=== PATIENT | male | born 1955 | race African-American/Black ===

== ENCOUNTER 2016-10-09 21:27 | Inpatient (IN) | payer OTHER ==
[~2016-10-09] VITALS: Ht 188 cm; Wt 64.0 kg
[~2016-10-09 21:27] MED LIST: ASPI-664 PO; ATOR20TA38 PO; FER325 PO; GABA100C PO; LANT3I SC; LISI-524 PO; MTF1000T PO; NOVO3I SC
[2016-10-09 21:45] VITALS: Ht 188 cm; Wt 64.0 kg
[2016-10-09] MEDS ORDERED: SOD CHLORIDE 0.9% 1,000 ML IV STA (22:08)
--- NOTE | 2016-10-09 22:53 | RADRPT ---
PROCEDURE: CHEST CLINICAL INDICATION: 61-year-old male with cough and hyperglycemia. TECHNIQUE: AP semi-erect view of the chest was performed on two radiographs. The images were revi ewed on a PACS workstation. COMPARISON: Chest x-ray January 23, 2015. FINDINGS: The cardiomediastinal silhouette has a normal appearance. There is no evidence for an infiltrate. There is no evidence for congestive heart failure. There is no evidence for pneumothorax. The osseou s structures are intact. IMPRESSION: No evidence for active cardiopulmonary disease. .Aroldo Treviño MD, Date Time Electronically viewed and signed by .Aroldo Treviño MD, on 10/09/2016 22:52 .Cuco/
[2016-10-09 23:02] LABS: ADD SCAN DIFF NO
[2016-10-09 23:04] LABS: BASOPHILS % 0.8 % (0.0-2.0); HEMATOCRIT 45.8 % (42.0-52.0); HEMOGLOBIN 14.1 g/dl (14.0-18.0); LYMPHOCYTES # 1.3 10^3/ul (0.8-2.9); LYMPHOCYTES % 26.3 % (15.0-51.0); MEAN CORPUSCULAR HGB CONC 30.8 g/dl (32.0-37.0); MEAN CORPUSCULAR VOLUME 77.9 fl (82.0-101.0); MEAN PLATELET VOLUME 10.4 fl (7.4-10.4); MONOCYTE # 0.2 10^3/ul (0.3-0.9); MONOCYTES % 3.6 % (0.0-11.0); NEUTROPHIL # 3.4 10^3/ul (1.6-7.5); NEUTROPHILS % 68.3 % (39.0-77.0); PLATELET COUNT 376 10^3/UL (140-415); RED BLOOD COUNT 5.88 10^6/ul (4.70-6.10); RED CELL DISTRIBUTION WIDTH 14.5 % (11.5-14.5)
[2016-10-09 23:14] LABS: ALBUMIN 5.1 g/dl (3.3-4.9); CHLORIDE 89 mmol/L (97-110)
[2016-10-09 23:15] LABS: POTASSIUM 5.1 mmol/L (3.5-5.1); SODIUM 132 mmol/L (135-144)
[2016-10-09 23:17] LABS: ALBUMIN/GLOBULIN RATIO 1.15; ANION GAP 36 (8-16); BILIRUBIN,INDIRECT 0.2 mg/dl (0-1.1); BILIRUBIN,TOTAL 0.2 mg/dl (0.2-1.3); CARBON DIOXIDE 12 mmol/L (21-31); CREATININE 1.15 mg/dl (0.61-1.24); TOTAL PROTEIN 9.5 g/dl (6.1-8.1)
[2016-10-09 23:18] LABS: ALANINE AMINOTRANSFERASE 27 IU/L (13-69); ALKALINE PHOSPHATASE 125 IU/L (42-121); ASPARTATE AMINO TRANSFERASE 21 IU/L (15-46); BLOOD UREA NITROGEN 29 mg/dl (7-20); CALCIUM 10.5 mg/dl (8.4-10.2)
[2016-10-09 23:25] LABS: GLUCOSE 413 mg/dl (70-220)
[2016-10-09 23:39] LABS: TROPONIN-I < 0.012 ng/ml (0.00-0.12)
[2016-10-09] MEDS ORDERED: INSULIN REGULAR, HUMAN 100 UNIT in SOD CHLORIDE 0.9% 99 ML IV STA ×2 (23:40)
[2016-10-10] VITALS (14 sets, daily range): BP systolic 105–135; BP diastolic 66–88; PULSE 75–111; RESP 15–25
[2016-10-10] MEDS ORDERED: SOD CHLORIDE 0.9% 1,000 ML IV SCH (00:02)
[2016-10-10] MEDS ORDERED: morphine 2 MG INJ IV PRN (00:30)
[2016-10-10] MEDS ORDERED: LORAZEPAM 2 MG INJ IV PRN (00:30)
[2016-10-10] MEDS ORDERED: DOCUSATE SODIUM 100 MG CAP PO PRN (00:30)
[2016-10-10] MEDS ORDERED: INSULIN REGULAR, HUMAN 100 UNIT in SOD CHLORIDE 0.9% 99 ML IV SCH ×2 (00:30)
[2016-10-10] MEDS ORDERED: POTASSIUM CHLORIDE 50 ML IVPB PRN (00:30)
[2016-10-10] MEDS ORDERED: ACETAMINOPHEN 650MG/20.3ML CUP PO PRN (00:30)
[2016-10-10] MEDS ORDERED: DEXTROSE 50% 50 ML SYRINGE IV PRN ×4 (00:30→12:00)
[2016-10-10] MEDS ORDERED: LACTATED RINGER'S 1,000 ML IV SCH (01:02)
--- NOTE | 2016-10-10 01:11 | HP ---
Date/Time of Note Date/Time of Note DATE: 10/10/16 TIME: 01:01 Assessment/Plan VTE Prophylaxis VTE Prophylaxis Intervention: heparin Assessment/Plan Assessment/Plan 61 yo male with a past medical history of type II DM, essential hypertension, diabetic neuropathy, bipolar disorder, iron deficiency anemia, hyperlipidemia, who presents with elevated blood sugars and shortness of breath. 1. DKA - will admit the patient to ICU - continue with Insulin GTT, diabetic education, IVF, transition to sub q once gap closes, serial bmp's 2. Pseudohyponatremia - 2/2 to hyperglycemia 3. Atypical Pneumonia - levaquin 4. Acute renal failure - 2/2 to dehydration - IVF, renally adjust medications, avoid nephrotoxins 5. Essential hypertension - continue with lisinopril 6. Diabetic neuropathy - continue with neurontin 7. Bipolar Disorder - on depakote, check level 8. Iron deficiency anemia - continue with ferrous sulfate 9. Dyslipidemia - c/w statin 10. GI ppx - pepcid IV 11. DVt ppx - heparin 12. Homeless - social worker clinical consult answered all of his questions. as per clinical course. this critical care note took greater than 1 hour to complete HPI/ROS Admit Date/Time Admit Date/Time 10/10/2016, 1:01 am Hx of Present Illness 61 yo male with a past medical history of type II DM, essential hypertension, diabetic neuropathy, bipolar disorder, iron deficiency anemia, hyperlipidemia, who presents with elevated blood sugars and shortness of breath. He states that over the last several days, he has had worsening shortness of breath, with cough , non-productive, vomiting multiple episodes, fevers/chills, and generalized malaise. Denies any diarrhea, does have a lot of sick contacts on the streets. Complains of dizziness and blurriness in vision 2/2 uncontrolled diabetes. 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 Otherwise denies any chest pain, loss of consciousness, urinary/bowel irregularities, or other constitutional symptoms. ED course: insulin gtt, IVF ROS 14 point review of systems completed, please refer to HPI for any positive findings PMH/Family/Social Past Medical History bipolar d/o, iron deficiency anemia, diabetic neuropathy Medical History: diabetes, high cholesterol, hypertension Past Surgical History Past Surgical Hx: no surgical history Family History Significant Family History: diabetes Social History Alcohol Use: none Smoking Status: Current some day smoker Drug Use: other (previous cocaine abuse) Exam/Review of Systems Vital Signs Vitals Vital Signs Date Time Temp Pulse Resp B/P Pulse Ox O2 Delivery O2 Flow Rate FiO2 10/10/16 00:35 86 16 126/86 100 Room Air 10/09/16 21:45 94.0 Exam Exam Gen Jorge: mild to moderate distress 2/2 shortness of breath, AAOx4, dishevel HEENT: NC/AT, PERRLA, EOMI, no pharyngeal erythema, no tonsillar exudates, no lymphadenopathy, no JVD, no carotid bruits, MM dry NECK: supple, no thyromegaly THORAX: symmetrical, no obvious deformities CV: S1S2, RRR, no M/G/R Lungs: CTAB no W/C/R/R - diminished breath sounds bilaterally to bases Abd: soft, NT/ND, +BS, no rebound, no guarding, neg HSM EXT: no edema, no ecchymosis, no clubbing, FROM Neuro: CN II-XII grossly intact, no focal deficits Psych: good mentation, alert and oriented, good mood and affect Skin: dry Labs Result Diagram: 10/09/16222910/09/162229 Medications Medications Current Medications Dextrose (D50w Syringe) 50 ml Q15M PRN IV For BS 50 or less; Start 10/10/16 at 00:30 Dextrose 25 ml 25 ml Q15M PRN IV BS between 50-70; Start 10/10/16 at 00:30 Sodium Chloride 1,000 ml @ 1,000 mls/hr Q1H IV ; Start 10/10/16 at 00:02; Stop 10/10/16 at 01:01 Lactated Ringer's 1,000 ml @ 1,000 mls/hr Q1H IV ; Start 10/10/16 at 01:02; Stop 10/10/16 at 02:01 Potassium Chloride/Sodium Chloride (KCl/NS) 1,010 ml @ 500 mls/hr Q2H2M IV ; Start 10/10/16 at 02:02; Stop 10/10/16 at 04:01 Diagnostic Test (Pha) (Accucheck) 1 ea Q1H XX ; Start 10/10/16 at 00:30 Acetaminophen (Tylenol Liquid) 650 mg Q6H PRN PO PAIN LEVEL 1-3 OR FEVER; Start 10/10/16 at 00:30 Morphine Sulfate (morphine) 2 mg Q4H PRN IV PAIN LEVEL 7-10; Start 10/10/16 at 00:30 Lorazepam (Ativan) 1 mg Q2H PRN IV ANXIETY; Start 10/10/16 at 00:30 Docusate Sodium (Colace) 100 mg Q12H PRN PO CONSTIPATION; Start 10/10/16 at 00: 30 Famotidine (Pepcid Iv) 20 mg Q12 IV ; Start 10/10/16 at 09:00 Heparin Sodium (Porcine) (Heparin (5000 Units/0.5 ml)) 5,000 unit Q12 SC ; Start 10/10/16 at 09:00 Aspirin (Halfprin) 81 mg DAILY PO ; Start 10/10/16 at 09:00 Atorvastatin Calcium (Lipitor) 20 mg HS PO ; Start 10/10/16 at 21:00 Ferrous Sulfate (Ferrous Sulfate (Ec)) 325 mg BID PO ; Start 10/10/16 at 09:00 Gabapentin (Neurontin) 300 mg BID PO ; Start 10/10/16 at 09:00 Lisinopril (Zestril) 10 mg DAILY PO ; Start 10/10/16 at 09:00 Procedures Procedures CXR IMPRESSION: No evidence for active cardiopulmonary disease. MEL PAEZ MD Oct 10, 2016 01:11
--- NOTE | 2016-10-10 01:17 | ERA ---
ER Documentation Chief Complaint Date/Time DATE: 10/10/16 TIME: 01:15 Chief Complaint states blood sugar high, feeling weak HPI This is a 61-year-old male states he has high blood sugars has been feeling weak. Denies any fevers or chills. He does have polydipsia polyuria polyphagia. No other current complaints. ROS All systems reviewed and are negative except as per history of present illness. Medications Home Meds Active Scripts Atorvastatin Calcium* (Atorvastatin Calcium*) 20 Mg Tab, 20 MG PO HS for 30 Days , 1 Refill Prov:NIKO JOAQUIN . 02/27/15 Aspirin* (Aspirin* EC) 81 Mg Tabec, 81 MG PO DAILY for 30 Days, 1 Refill Prov:[facility]INFORM[facility]LY [facility] 02/27/15 Insulin Glargine* (Lantus*) 100 Unit/Ml Soln, 20 UNIT SC QHS for 30 Days, 1 [facility] Insulin Aspart* (Novolog Insulin Pen*) 100 Unit/Ml Soln, 5 UNIT SC WITH MEALS for 30 Days, 1 [facility] 02/27/15 Ferrous Sulfate* (Ferrous Sulfate*) 325 Mg Tabec, 325 MG PO BID, #30 TAB 1 [facility] 02/27/15 Lisinopril* (Zestril*) 10 Mg Tab, 10 MG PO DAILY, #30 TAB 1 [facility] 02/27/15 Gabapentin* (Neurontin*) 100 Mg Cap, 300 MG PO BID, #60 TAB 1 [facility] 02/27/15 Metformin* (Glucophage*) 1,000 Mg Tablet, 1000 MG PO BID, #60 TAB 1 [facility] Prov[facility] 02/27/15 Allergies Allergies: Coded Allergies: No Known Drug Allergies (Verified Allergy, Unknown, 10/09/16) PMhx/Soc History of Surgery: No Anesthesia Reaction: No Hx Neurological Disorder: No Hx Respiratory Disorders: Yes (Asthma) Hx Cardiac Disorders: Yes (Hypertension) Hx Psychiatric Problems: Yes (Bipolar Disease, Depression) Hx Miscellaneous Medical Probl: Yes (DM Type 2) Hx Alcohol Use: Yes Hx Substance Use: No Hx Tobacco Use: Yes Smoking Status: Current some day smoker Physical Exam Vitals Vital Signs Date Time Temp Pulse Resp B/P Pulse Ox O2 Delivery O2 Flow Rate FiO2 10/10/16 00:35 86 16 126/86 100 Room Air 10/09/16 22:10 84 17 139/84 100 Room Air 10/09/16 21:45 94.0 101 20 133/84 100 Physical Exam Const: [] Head: Atraumatic Eyes: Normal Conjunctiva ENT: Normal External Ears, Nose and Mouth. Neck: Full range of motion..~ No meningismus. Resp: Clear to auscultation bilaterally Cardio: Regular rate and rhythm, no murmurs Abd: Soft, non tender, non distended. Normal bowel sounds Skin: No petechiae or rashes Back: No midline or flank tenderness Ext: No cyanosis, or edema Neur: Awake and alert Psych: Normal Mood and Affect Result Diagram: 10/09/16222910/09/162229 Results 24 hrs Laboratory Tests Test 10/09/16 21:49 10/09/16 22:30 10/10/16 01:07 Bedside Glucose 410mg/dL 250mg/dL Alanine Aminotransferase (ALT/SGPT) 27IU/L Albumin 5.1g/dl Albumin/Globulin Ratio 1.15 Alkaline Phosphatase 125IU/L Anion Gap 36 Aspartate Amino Transf (AST/SGOT) 21IU/L Basophils # 0.010^3/ul Basophils % 0.8% Blood Urea Nitrogen 29mg/dl Calcium Level 10.5mg/dl Carbon Dioxide Level 12mmol/L Chloride Level 89mmol/L Creatinine 1.15mg/dl Direct Bilirubin 0.00mg/dl Eosinophils # 0.010^3/ul Eosinophils % 0.0% Globulin 4.40g/dl Glucose Level 413mg/dl Hematocrit 45.8% Hemoglobin 14.1g/dl Indirect Bilirubin 0.2mg/dl Lactic Acid Level 1.3mmol/L Lymphocytes # 1.310^3/ul Lymphocytes % 26.3% Mean Corpuscular Hemoglobin 24.0pg Mean Corpuscular Hemoglobin Concent 30.8g/dl Mean Corpuscular Volume 77.9fl Mean Platelet Volume 10.4fl Monocytes # 0.210^3/ul Monocytes % 3.6% Neutrophils # 3.410^3/ul Neutrophils % 68.3% Nucleated Red Blood Cells # 0.010^3/ul Nucleated Red Blood Cells % 0.0/100WBC Platelet Count 32441^3/UL Potassium Level 5.1mmol/L Red Blood Count 5.8810^6/ul Red Cell Distribution Width 14.5% Sodium Level 132mmol/L Total Bilirubin 0.2mg/dl Total Protein 9.5g/dl Troponin I < 0.012ng/ml White Blood Count 5.010^3/ul Current Medications Medications (Trade) Dose Ordered Sig/Miya Route PRN Reason Start Time Stop Time Status Last Admin Dose Admin Sodium Chloride 1,000 ml @ 1,000 mls/hr Q1H STAT IV 10/09/16 22:08 10/09/16 23:07 DC 10/09/16 22:37 Insulin Human Regular/Sodium Chloride (Humulin R/NS) 100 ml @ 6.4 mls/hr TITRATE STAT IV 10/09/16 23:40 10/10/16 15:17 10/10/16 00:14 Dextrose (D50w Syringe) 50 ml Q15M PRN IV For BS 50 or less 10/10/16 00:30 Dextrose 25 ml 25 ml Q15M PRN IV BS between 50-70 10/10/16 00:30 Sodium Chloride 1,000 ml @ 1,000 mls/hr Q1H IV 10/10/16 00:02 10/10/16 01:01 DC Lactated Ringer's 1,000 ml @ 1,000 mls/hr Q1H IV 10/10/16 01:02 10/10/16 02:01 Potassium Chloride 20 meq/ Sodium Chloride 1,010 ml @ 500 mls/hr Q2H2M IV 10/10/16 02:02 10/10/16 04:01 Insulin Human Regular/Sodium Chloride (Humulin R/NS) 100 ml @ 0 mls/hr DKA PROTOCOL IV 10/10/16 00:30 Diagnostic Test (Pha) (Accucheck) 1 ea Q1H XX 10/10/16 00:30 Miscellaneous Information HYPOGLYCEMIA TREATMENT HYPOGLYCEM PROTOCOL PRN XX Hypoglycemia (BS < 70) 10/10/16 00:30 Potassium Chloride (KCl 10 MEQ/50 ML SW) 50 ml @ 50 mls/hr K PROTOCOL PRN IVPB PENDING LAB VALUE 10/10/16 00:30 Acetaminophen (Tylenol Liquid) 650 mg Q6H PRN PO PAIN LEVEL 1-3 OR FEVER 10/10/16 00:30 Morphine Sulfate (morphine) 2 mg Q4H PRN IV PAIN LEVEL 7-10 10/10/16 00:30 Lorazepam (Ativan) 1 mg Q2H PRN IV ANXIETY 10/10/16 00:30 Docusate Sodium (Colace) 100 mg Q12H PRN PO CONSTIPATION 10/10/16 00:30 Famotidine (Pepcid Iv) 20 mg Q12 IV 10/10/16 09:00 Heparin Sodium (Porcine) (Heparin (5000 Units/0.5 ml)) 5,000 unit Q12 SC 10/10/16 09:00 Aspirin (Halfprin) 81 mg DAILY PO 10/10/16 09:00 Atorvastatin Calcium (Lipitor) 20 mg HS PO 10/10/16 21:00 Ferrous Sulfate (Ferrous Sulfate (Ec)) 325 mg BID PO 10/10/16 09:00 Gabapentin (Neurontin) 300 mg BID PO 10/10/16 09:00 Lisinopril 10 mg 10 mg DAILY PO 10/10/16 09:00 Levofloxacin/ Dextrose (Levaquin 500mg/ D5W 100 ml (Pmx)) 100 ml @ 100 mls/hr Q24H IVPB 10/10/16 01:30 Procedures/MDM EKG: Rate/Rhythm: Normal Sinus Rhythm QRS, ST, T-waves: No changes consistent w/ acute ischemia Impression: No evidence of ischemia or arrhythmia Chest X-ray 1V Interpreted by me: Soft Tissue: No acute abnormalities Bones: No acute abnormalities Mediastinum/Cardiac Silhouette/Lungs: No acute abnormalities Medical decision-makin gentleman with acute diabetic ketoacidosis. Started on insulin drip. Given fluid hydration. Patient will be admitted to the ICU to the hospitalist. Critical Care: Time: 45 minutes Treatments/Evaluations: Close monitoring and treatment of unstable vital signs, cardiorespiratory, and neurologic status, while maintaining tight balance of fluid, respiratory, and cardiac interventions. Departure Diagnosis: Primary Impression: Hyperglycemia Additional Impressions: Diabetes mellitus with hyperglycemia Qualified Code: E11.65 - Type 2 diabetes mellitus with hyperglycemia, with long-term current use of insulin DKA (diabetic ketoacidoses) Qualified Code: E13.10 - Diabetic ketoacidosis without coma associated with type 2 diabetes mellitus Condition: Critical MIKE CHAUDHRY Oct 10, 2016 01:17
[2016-10-10] MEDS ORDERED: POTASSIUM CHLORIDE 20 MEQ in SOD CHLORIDE 0.9% 1,000 ML IV SCH (02:02)
[2016-10-10 02:51] LABS: AADO2 Arterial 24.4 mmHg (7.0-24.0); Allen Test ACCEPTAB; Arterial Base Excess -11.7 mmol/L (-3.0-3); Arterial COHb 1.9 % (0.0-3.0); Arterial Fraction of Oxyhgb 94.5 % (93.0-99.0); Arterial HCO3 13.3 mmol/L (22.0-26.0); Arterial MetHb 0.3 % (0.0-1.5); Arterial Total Hemglobin 14.2 g/dl (12.0-18.0); MODE ROOM AIR
[2016-10-10] MEDS: ACCUCHECK XX SCH ×4 (03:29→06:24)
[2016-10-10 03:53] LABS: ADD SCAN DIFF NO
[2016-10-10 04:08] LABS: BASOPHILS % 0.6 % (0.0-2.0); EOSINOPHILS % 0.2 % (0.0-7.0); HEMATOCRIT 38.4 % (42.0-52.0); HEMOGLOBIN 12.1 g/dl (14.0-18.0); LYMPHOCYTES # 1.7 10^3/ul (0.8-2.9); LYMPHOCYTES % 34.4 % (15.0-51.0); MEAN CORPUSCULAR HEMOGLOBIN 23.7 pg (29.0-33.0); MEAN CORPUSCULAR HGB CONC 31.5 g/dl (32.0-37.0); MEAN CORPUSCULAR VOLUME 75.3 fl (82.0-101.0); MEAN PLATELET VOLUME 9.7 fl (7.4-10.4); MONOCYTE # 0.3 10^3/ul (0.3-0.9); MONOCYTES % 6.4 % (0.0-11.0); NEUTROPHIL # 2.8 10^3/ul (1.6-7.5); NEUTROPHILS % 58.2 % (39.0-77.0); PLATELET COUNT 302 10^3/UL (140-415); RED CELL DISTRIBUTION WIDTH 14.2 % (11.5-14.5); WHITE BLOOD COUNT 4.9 10^3/ul (4.8-10.8)
[2016-10-10] MEDS: LEVOFLOXACIN 500MG/D5W (PMX) 100 ML IVPB SCH (04:10)
[2016-10-10 04:11] LABS: POTASSIUM 4.1 mmol/L (3.5-5.1)
[2016-10-10 04:13] LABS: CREATININE 1.05 mg/dl (0.61-1.24)
[2016-10-10 04:14] LABS: CALCIUM 9.2 mg/dl (8.4-10.2); MAGNESIUM 1.7 mg/dl (1.7-2.5)
[2016-10-10] MEDS ORDERED: NS + KCL 20 MEQ 1,000 ML IV SCH (06:00)
[2016-10-10 09:01] LABS: MAGNESIUM 1.6 mg/dl (1.7-2.5); PHOSPHORUS 3.3 mg/dl (2.5-4.9)
[2016-10-10 10:06] LABS: POTASSIUM 4.3 mmol/L (3.5-5.1)
[2016-10-10 10:09] LABS: CREATININE 0.86 mg/dl (0.61-1.24)
[2016-10-10] MEDS ORDERED: MAGNESIUM SULFATE 3 GM in SOD CHLORIDE 0.9% 100 ML IVPB ONE (10:30)
[2016-10-10] MEDS ORDERED: DEXTROSE 5%-0.45% NACL 1,000 ML IV SCH (10:30)
[2016-10-10 10:49] LABS: ADD UMIC NO; URINE BILIRUBIN (Dip) NEGATIVE (NEGATIVE); URINE BLOOD (Dip) NEGATIVE (NEGATIVE); URINE COLOR LT. YELLOW (YELLOW); URINE GLUCOSE (Dip) >=1000 % (NEGATIVE); URINE KETONES (Dip) 15 (NEGATIVE); URINE LEUKOCYTE ESTERASE (Dip) NEGATIVE (NEGATIVE); URINE NITRITE (Dip) NEGATIVE (NEGATIVE); URINE TOTAL PROTEIN (Dip) NEGATIVE (NEGATIVE); URINE UROBILINOGEN (Dip) 0.2 E.U./dL (0.1-1.0)
[2016-10-10 11:06] LABS: BARBITURATES Negative (NEGATIVE); BENZODIAZEPINES Negative (NEGATIVE); CANNABINOIDS Negative (NEGATIVE)
[2016-10-10 11:08] LABS: OPIATES Positive (NEGATIVE)
[2016-10-10 11:11] LABS: COCAINE Positive (NEGATIVE)
[2016-10-10] MEDS: GABAPENTIN 100 MG CAP PO SCH ×2 (11:46→21:13)
[2016-10-10] MEDS: ASPIRIN (EC) 81 MG TAB PO SCH (11:46)
[2016-10-10] MEDS: FERROUS SULFATE (EC) 325 MG TAB PO SCH ×2 (11:46→21:16)
[2016-10-10] MEDS: LISINOPRIL 10 MG TAB PO SCH (11:47)
[2016-10-10] MEDS: HEPARIN 5,000 UNIT/0.5 ML SYG SC SCH ×2 (11:52→21:11)
[2016-10-10] MEDS ORDERED: GLUCAGON 1 MG INJ IM PRN (12:00)
[2016-10-10] MEDS ORDERED: GLUCOSE GEL 15 GRAM TUBE BUCCAL PRN (12:00)
[2016-10-10] MEDS ORDERED: GLUCOSE GEL 15 GRAM TUBE PO PRN ×2 (12:00)
[2016-10-10] MEDS: FAMOTIDINE 20 MG INJ IV SCH ×2 (12:00→21:13)
[2016-10-10 12:49] LABS: ALBUMIN 4.2 g/dl (3.3-4.9)
[2016-10-10 12:50] LABS: POTASSIUM 4.2 mmol/L (3.5-5.1)
[2016-10-10 12:52] LABS: ALBUMIN/GLOBULIN RATIO 1.23; BILIRUBIN,INDIRECT 0.1 mg/dl (0-1.1); BILIRUBIN,TOTAL 0.1 mg/dl (0.2-1.3); CALCIUM 9.4 mg/dl (8.4-10.2); CREATININE 1.04 mg/dl (0.61-1.24); PHOSPHORUS 3.4 mg/dl (2.5-4.9); TOTAL PROTEIN 7.6 g/dl (6.1-8.1)
[2016-10-10 13:22] LABS: THYROID STIMULATING HORMONE 2.19 MIU/L (0.465-4.680)
[2016-10-10] MEDS: INSULIN ASPART [NOVOLOG] 3 ML PEN SC SCH ×5 (13:26→21:00)
[2016-10-10] MEDS: INSULIN GLARGINE [LANtus] 3 ML PEN SC SCH (13:28)
[2016-10-10 13:59] LABS: CHOL/HDL RATIO 5.7 RATIO
[2016-10-10] MEDS ORDERED: INSULIN ASPART [NOVOLOG] 3 ML PEN SC ONE (20:30)
[2016-10-10] MEDS ORDERED: INSULIN GLARGINE [LANtus] 3 ML PEN SC ONE (20:30)
[2016-10-10] MEDS ORDERED: ATORVASTATIN 20 MG TAB PO SCH (21:00)
[2016-10-10] MEDS: HYDROCODONE/APAP (10/325) TAB PO PRN (22:06)
[2016-10-11] MEDS: LEVOFLOXACIN 500MG/D5W (PMX) 100 ML IVPB SCH (01:12)
[2016-10-11] MEDS ORDERED: INSULIN ASPART [NOVOLOG] 3 ML PEN SC ONE (01:30)
[2016-10-11] MEDS ORDERED: ACCUCHECK XX SCH (02:00)
[2016-10-11] MEDS: SOD CHLORIDE 0.9% 1,000 ML IV SCH ×2 (02:47→11:56)
[2016-10-11 05:04] LABS: ADD SCAN DIFF NO
[2016-10-11 05:19] LABS: HEMATOCRIT 29.5 % (42.0-52.0); HEMOGLOBIN 9.3 g/dl (14.0-18.0); MEAN CORPUSCULAR HEMOGLOBIN 23.7 pg (29.0-33.0); MEAN CORPUSCULAR HGB CONC 31.5 g/dl (32.0-37.0); MEAN CORPUSCULAR VOLUME 75.3 fl (82.0-101.0); MEAN PLATELET VOLUME 10.2 fl (7.4-10.4); PLATELET COUNT 228 10^3/UL (140-415); RED BLOOD COUNT 3.92 10^6/ul (4.70-6.10); RED CELL DISTRIBUTION WIDTH 14.4 % (11.5-14.5); WHITE BLOOD COUNT 4.5 10^3/ul (4.8-10.8)
[2016-10-11 05:26] LABS: ALBUMIN 2.9 g/dl (3.3-4.9)
[2016-10-11 05:27] LABS: POTASSIUM 4.1 mmol/L (3.5-5.1)
[2016-10-11 05:29] LABS: BILIRUBIN,INDIRECT 0.1 mg/dl (0-1.1); BILIRUBIN,TOTAL 0.1 mg/dl (0.2-1.3); CREATININE 0.8 mg/dl (0.61-1.24)
[2016-10-11 05:30] LABS: ALBUMIN/GLOBULIN RATIO 0.9; CALCIUM 8.7 mg/dl (8.4-10.2); TOTAL PROTEIN 6.1 g/dl (6.1-8.1)
[2016-10-11] MEDS: INSULIN ASPART [NOVOLOG] 3 ML PEN SC SCH ×6 (08:22→17:33)
[2016-10-11] MEDS: INSULIN GLARGINE [LANtus] 3 ML PEN SC SCH (08:23)
[2016-10-11] MEDS: HEPARIN 5,000 UNIT/0.5 ML SYG SC SCH (08:24)
[2016-10-11] MEDS: FAMOTIDINE 20 MG INJ IV SCH (08:24)
[2016-10-11] MEDS: ASPIRIN (EC) 81 MG TAB PO SCH (08:25)
[2016-10-11] MEDS: GABAPENTIN 100 MG CAP PO SCH (08:25)
[2016-10-11] MEDS: FERROUS SULFATE (EC) 325 MG TAB PO SCH (08:25)
[2016-10-11] MEDS: LISINOPRIL 10 MG TAB PO SCH (08:25)
[2016-10-11 08:26] VITALS: BP 102/55; RESP 19
[2016-10-11] MEDS: HYDROCODONE/APAP (10/325) TAB PO PRN (08:26)
[2016-10-11 09:23] LABS: LYMPHOCYTES # 3.1 10^3/ul (0.8-2.9); MONOCYTE # 0.4 10^3/ul (0.3-0.9)
[2016-10-11] MEDS ORDERED: INFLUENZA VIRUS VACCINE 0.5 ML SYG IM* ONE (09:30)
--- NOTE | 2016-10-11 14:10 | PN ---
Date/Time of Note Date/Time of Note DATE: 10/11/16 TIME: 14:05 Assessment/Plan VTE Prophylaxis VTE Prophylaxis Intervention: heparin Lines/Catheters IV [facility]from [facility] [place] [facility] Urinary Cath still in place: No Assessment/Plan Chief Complaint/Hosp Course 1. DKA-resolved -cont Insulin subQ 2. Pseudohyponatremia -monitor 3. Atypical Pneumonia-resolved -DC Levaquin 4. Bipolar Disorder - on depakote 5. Essential hypertension - continue with lisinopril 6. Diabetic neuropathy - continue with neurontin 7. MC Anemia -check Iron level - continue with ferrous sulfate 8. Dyslipidemia - c/w statin 9. Homeless - health social work professor consult PPx- Heparin Problems: Subjective 24 Hr Interval Summary Constitutional: no complaints Exam/Review of Systems Vital Signs Vitals Vital Signs Date Time Temp Pulse Resp B/P Pulse Ox O2 Delivery O2 Flow Rate FiO2 10/11/16 08:26 98.3 82 19 102/55 100 10/10/16 06:00 Room Air Intake and Output 10/10/16 10/10/16 10/11/16 15:00 23:00 07:00 Intake Total 822.16 ml 150 ml 325 ml Output Total 700 ml Balance 122.16 ml 150 ml 325 ml Exam Constitutional: alert, oriented Respiratory: clear to auscultation Cardiovascular: regular rate and rhythm Gastrointestinal: soft, No distended Musculoskeletal: nl extremities to inspection Results Result Diagram: 10/11/16 0440 10/11/16 0500 Results 24 hrs Laboratory Tests Test 10/10/16 20:11 10/10/16 20:13 10/11/16 01:03 10/11/16 02:52 Bedside Glucose 585 *H 588 *H 318 H 251 H Test 10/11/16 03:51 10/11/16 04:40 10/11/16 05:00 10/11/16 07:26 Bedside Glucose 180 280 H Eosinophils # 0.0 Eosinophils % 1.0 Hematocrit 29.5 #L Hemoglobin 9.3 #L Lymphocytes # 3.1 H Lymphocytes % 68.0 H Magnesium Level 1.9 Mean Corpuscular Hemoglobin 23.7 L Mean Corpuscular Hemoglobin Concent 31.5 L Mean Corpuscular Volume 75.3 L Mean Platelet Volume 10.2 Monocytes # 0.4 Monocytes % 8.0 Neutrophils # 1.0 L Neutrophils % 23.0 L Phosphorus Level 3.4 Platelet Count 228 # Red Blood Count 3.92 #L Red Cell Distribution Width 14.4 White Blood Count 4.5 L Alanine Aminotransferase (ALT/SGPT) 22 Albumin 2.9 #L Albumin/Globulin Ratio 0.90 Alkaline Phosphatase 103 Anion Gap 14 Aspartate Amino Transf (AST/SGOT) 18 Blood Urea Nitrogen 22 H Calcium Level 8.7 Carbon Dioxide Level 22 Chloride Level 101 Creatinine 0.80 Direct Bilirubin 0.00 Globulin 3.20 Glucose Level 161 # Indirect Bilirubin 0.1 Potassium Level 4.1 Sodium Level 133 L Total Bilirubin 0.1 L Total Protein 6.1 # Test 10/11/16 11:24 Bedside Glucose 180 Medications Medications Current Medications Acetaminophen (Tylenol Liquid) 650 mg Q6H PRN PO PAIN LEVEL 1-3 OR FEVER; Start 10/10/16 at 00:30 Lorazepam (Ativan) 1 mg Q2H PRN IV ANXIETY Last administered on 10/11/16 08:26 ; Admin Dose 1 MG; Start 10/10/16 at 00:30 Docusate Sodium (Colace) 100 mg Q12H PRN PO CONSTIPATION Last administered on 21:21; Admin Dose 100 MG; Start 10/10/16 at 00:30 Heparin Sodium (Porcine) (Heparin (5000 Units/0.5 ml)) 5,000 unit Q12 SC Last administered on 10/11/16 08:24; Admin Dose 5,000 UNIT; Start 10/10/16 at 09:00 Aspirin (Halfprin) 81 mg DAILY PO Last administered on 10/11/16 08:25; Admin Dose 81 MG; Start 10/10/16 at 09:00 Atorvastatin Calcium (Lipitor) 20 mg HS PO Last administered on 10/10/16 21:11 ; Admin Dose 20 MG; Start 10/10/16 at 21:00 Ferrous Sulfate (Ferrous Sulfate (Ec)) 325 mg BID PO Last administered on 08:25; Admin Dose 325 MG; Start 10/10/16 at 09:00 Gabapentin (Neurontin) 300 mg BID PO Last administered on 10/11/16 08:25; Admin Dose 300 MG; Start 10/10/16 at 09:00 Lisinopril 10 mg 10 mg DAILY PO Last administered on 10/11/16 08:25; Admin Dose 10 MG; Start 10/10/16 at 09:00 Levofloxacin/ Dextrose (Levaquin 500mg/ D5W 100 ml (Pmx)) 100 ml @ 100 mls/hr Q24H IVPB Last administered on 10/11/16 01:12; Admin Dose 100 MLS/HR; Start at 01:30 Insulin Glargine (Lantus) 20 unit DAILY@08 SC Last administered on 10/11/16 08 :23; Admin Dose 20 UNIT; Start 10/10/16 at 11:30 Diagnostic Test (Pha) (Accucheck) 1 ea 02 XX Last administered on 10/11/16 01: 23; Admin Dose 1 EA; Start 10/11/16 at 02:00 Miscellaneous Information 1 ea NOTE XX ; Start 10/10/16 at 12:00 Glucose (Glutose) 15 gm Q15M PRN PO DECREASED GLUCOSE; Start 10/10/16 at 12:00 Glucose (Glutose) 22.5 gm Q15M PRN PO DECREASED GLUCOSE; Start 10/10/16 at 12: 00 Dextrose (D50w Syringe) 25 ml Q15M PRN IV DECREASED GLUCOSE; Start 10/10/16 at 12:00 Dextrose (D50w Syringe) 50 ml Q15M PRN IV DECREASED GLUCOSE; Start 10/10/16 at 12:00 Glucagon (Glucagen) 1 mg Q15M PRN IM DECREASED GLUCOSE; Start 10/10/16 at 12:00 Glucose (Glutose) 15 gm Q15M PRN BUCCAL DECREASED GLUCOSE; Start 10/10/16 at 12 :00 Acetaminophen/ Hydrocodone Bitart 1 tab 1 tab Q4H PRN PO PAIN Last administered on 10/11/16 08:26; Admin Dose 1 TAB; Start 10/10/16 at 21:30 Sodium Chloride (NS) 1,000 ml @ 100 mls/hr Q10H IV Last administered on 02:47; Admin Dose 100 MLS/HR; Start 10/11/16 at 02:30; Stop 10/11/16 at 14: 29 Famotidine (Pepcid) 20 mg Q12 PO ; Start 10/11/16 at 21:00 TAYLOR ABDUL Oct 11, 2016 14:10
[2016-10-11 16:11] LABS: MICROALBUMIN 1.1 mg/dL
--- NOTE | 2016-10-11 17:55 | PDOCDIS ---
Discharge Instructions CONDITION Patient Condition: Good HOME CARE INSTRUCTIONS: Special Diet: carb consistent ACTIVITY: Activity Restrictions: No Restrictions FOLLOW UP/APPOINTMENTS Appointments F/U WITH YOUR PCP IN 1-2 WEEKS TAYLOR ABDUL Oct 11, 2016 17:55
[2016-10-11] MEDS ORDERED: NOVO3I SC (17:58)
[2016-10-11] MEDS ORDERED: LANT3I SC (17:58)
[2016-10-11] MEDS ORDERED: MTF1000T PO (17:58)
[2016-10-11] MEDS ORDERED: FAMOTIDINE 20 MG TAB PO SCH (21:00)
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
== END 2016-10-11 18:57 | disposition home or self-care (01) | DRG 639 ==
LOC: E/R 21:27 → ICU 10-10 00:06 → PP2 10-10 17:17
PROVIDERS: ADMIT Student in an Organized Health Care Education/Training Program; ATTEND Student in an Organized Health Care Education/Training Program
PROC: 3E00X4Z Introduction of Serum, Toxoid and Vaccine into Skin and Mucous Membranes, External Approach (ICD-10-PCS; principal; 2016-10-11)
DX: E13.10 Other specified diabetes mellitus with ketoacidosis without coma (principal); I10 Essential (primary) hypertension; E11.40 Type 2 diabetes mellitus with diabetic neuropathy, unspecified; F31.9 Bipolar disorder, unspecified; D50.9 Iron deficiency anemia, unspecified; E78.5 Hyperlipidemia, unspecified; Z59.0 Homelessness; Z23 Encounter for immunization
CPT/HCPCS: 36415; 36600; 71010; 80048; 80053; 80061; 80307; 81003; 82043; 82803; 82962; 83036; 83605; 83735; 84100; 84443; 84484; 85025; 87081; 87086; 90686; 93005; 96361; 96374; 96375; J1815; J1956; J2060; J2270; J3475; J3480; J7030; J7042; J7120

== ENCOUNTER 2017-08-25 06:47 | Inpatient (IN) | END 2017-08-25 16:55 | disposition home or self-care (01) | DRG 639 ==

== ENCOUNTER 2017-08-28 14:01 | Inpatient (IN) | END 2017-08-29 13:05 | disposition home or self-care (01) | DRG 313 ==

== ENCOUNTER 2017-11-07 20:28 | Inpatient (IN) | END 2017-11-14 14:47 | disposition home or self-care (01) | DRG 638 ==

== ENCOUNTER 2018-01-05 22:31 | Inpatient (IN) | END 2018-01-10 14:40 | disposition home or self-care (01) | DRG 871 ==

== ENCOUNTER 2018-02-08 13:37 | Emergency (ER) | END 2018-02-08 20:05 | disposition home or self-care (01) ==

== ENCOUNTER 2018-03-21 13:38 | Inpatient (IN) | END 2018-03-28 14:00 | disposition home or self-care (01) | DRG 638 ==

== ENCOUNTER 2018-07-06 06:57 | Inpatient (IN) | END 2018-07-08 15:35 | disposition home or self-care (01) | DRG 639 ==

== ENCOUNTER 2018-08-05 16:05 | Emergency (ER) | END 2018-08-05 23:00 | disposition home or self-care (01) ==

== ENCOUNTER 2018-10-01 21:36 | Inpatient (IN) | payer OTHER ==
[~2018-10-01] VITALS: Ht 188 cm; Wt 59.9 kg
[~2018-10-01 21:36] MED LIST changes: -ASPI-664 PO; +ASPI81TA52 PO; +BUSP10TA2 PO; +DOCU100T PO; -GABA100C PO; +GABA300C16 PO; +INSU100I12 SQ; +INSU100I33 SC; +INSU100V3 IJ; -LANT3I SC; -LISI-524 PO; +LISI10TA2 PO; +METF500T PO; +METF500T24 PO; -MTF1000T PO; -NOVO3I SC
--- NOTE | 2018-10-01 22:18 | ERD ---
ER Documentation Chief Complaint Chief Complaint HPI This is a very pleasant 63-year-old male brought in by rescue with complaints of fevers and chills. Patient is a very poor historian, but states he has had fevers and chills on and off for the past 2-3 days. No nausea no vomiting. No chest pain. No other current complaints. ROS All systems reviewed and are negative except as per history of present illness. Medications Home Meds Active Scripts Metformin Hcl (Glucophage) 500 Mg Tablet, 500 MG PO WITH BREAKFAST DINNE, #30 TAB Prov:NIK CHANDRA MD 08/05/18 Insulin Lispro (Humalog Kwikpen U-100) 100 Unit/1 Ml Insuln.pen, 15 UNIT SQ AC A for 30 Days, EA Prov:NIK CHANDRA MD 08/05/18 Insulin Regular, Human (Humulin R) 100 Unit/1 Ml Vial, 5 UNIT IJ TID for 30 Days, VIAL Prov:NIK CHANDRA MD 08/05/18 Insulin Lispro (Humalog Kwikpen U-100) 100 Unit/1 Ml Insuln.pen, 32 UNIT SQ Daily at Bedtime for 30 Days, #30 Prov:NIK CHANDRA MD 08/05/18 Reported Medications Buspirone Hcl* (Buspirone Hcl*) 10 Mg Tab, 5 MG PO BID, TAB 08/05/18 Lisinopril* (Lisinopril*) 10 Mg Tablet, 10 MG PO DAILY, #30 TAB 08/05/18 Insulin Glargine,Hum.rec.anlog (Basaglar Kwikpen U-100) 100 Unit/1 Ml Insuln.pen, 32 UNIT SC QHS, EA 08/05/18 Insulin Regular, Human (Humulin R) 100 Unit/1 Ml Vial, 5 UNIT IJ TID, VIAL 08/05/18 Insulin Lispro (Humalog Kwikpen U-100) 100 Unit/1 Ml Insuln.pen, 15 UNIT SQ AC A, EA 08/05/18 Atorvastatin Calcium* (Atorvastatin Calcium*) 20 Mg Tablet, 20 MG PO QHS, #30 TAB 08/05/18 Gabapentin* (Gabapentin*) 300 Mg Capsule, 300 MG PO TID, #90 CAP 08/05/18 Metformin Hcl* (Metformin Hcl*) 500 Mg Tablet, 500 MG PO WITH BREAKFAST DINNE, #60 TAB 08/05/18 Docusate Sodium* (Dok*) 100 Mg Tablet, 100 MG PO BID, #60 CAP 08/05/18 Ferrous Sulfate* (Ferrous Sulfate*) 325 Mg Tabec, 325 MG PO BID, TAB 08/05/18 Aspirin (Low Dose Aspirin) 81 Mg Tablet.dr, 81 MG PO DAILY, #30 TAB 08/05/18 Allergies Allergies: Coded Allergies: No Known Drug Allergies (Verified Allergy, Unknown, 10/02/18) PMhx/Soc History of Surgery: No Anesthesia Reaction: No Hx Neurological Disorder: No Hx Respiratory Disorders: No Hx Cardiac Disorders: Yes (HTN, HIGH CHOLESTEROL) Hx Psychiatric Problems: Yes (Bipolar, PTSD) Hx Miscellaneous Medical Probl: Yes (DM) Hx Alcohol Use: Yes Hx Substance Use: Yes (COCAINE, METH) Hx Tobacco Use: Yes Physical Exam Vitals Vital Signs Date Temp Pulse Resp B/P (MAP) Pulse Ox O2 O2 Flow FiO2 Time Delivery Rate 10/02/18 120 16 169/95 100 Nasal 04:29 (119) Cannula 10/02/18 118 16 166/94 100 Room Air 02:26 (118) 10/02/18 99.0 112 20 166/92 100 Room Air 01:30 (116) 10/01/18 99.0 114 16 158/93 100 Room Air 22:42 (114) 10/01/18 99.0 112 20 100 21:40 Physical Exam Const: No acute distress Head: Atraumatic Eyes: Normal Conjunctiva ENT: Normal External Ears, Nose and Mouth. Neck: Full range of motion. No meningismus. Resp: Clear to auscultation bilaterally Cardio: Regular rate and rhythm, no murmurs Abd: Soft, non tender, non distended. Normal bowel sounds Skin: No petechiae or rashes Back: No midline or flank tenderness Ext: No cyanosis, or edema Neur: Awake and alert Psych: Normal Mood and Affect Result Diagram: 10/01/18225010/01/182250 Results 24 hrs Laboratory Tests Test 10/01/18 22:33 10/01/18 22:34 10/01/18 22:44 10/01/18 22:51 Bedside Glucose > 595 mg/dL Lactic Acid Level 2.5 mmol/L Hemoglobin A1c % White Blood Count 9.2 10^3/ul Red Blood Count 4.19 10^6/ul Hemoglobin 9.7 g/dl Hematocrit 33.0 % Mean Corpuscular 78.8 fl Volume Mean Corpuscular 23.2 pg Hemoglobin Mean Corpuscular 29.4 g/dl Hemoglobin Concen t Red Cell 14.9 % Distribution Width Platelet Count 330 10^3/UL Mean Platelet 8.9 fl Volume Immature 0.700 % Granulocytes % Neutrophils % 88.6 % Lymphocytes % 7.9 % Monocytes % 2.7 % Eosinophils % 0.0 % Basophils % 0.1 % Nucleated Red 0.0 /100WBC Blood Cells % Immature 0.060 10^3/ul Granulocytes # Neutrophils # 8.2 10^3/ul Lymphocytes # 0.7 10^3/ul Monocytes # 0.3 10^3/ul Eosinophils # 0.0 10^3/ul Basophils # 0.0 10^3/ul Nucleated Red 0.0 10^3/ul Blood Cells # Prothrombin Time 12.1 Sec Prothrombin Time 0.9 Ratio INR International 0.89 Normalized Ratio Activated 26.1 Sec Partial Thrombopl ast Time Sodium Level 130 mmol/L Potassium Level 4.3 mmol/L Chloride Level 90 mmol/L Carbon Dioxide 31 mmol/L Level Anion Gap 9 Blood Urea 23 mg/dl Nitrogen Creatinine 0.67 mg/dl Est Glomerular > 60 mL/min Filtrat Rate mL/min Glucose Level 823 mg/dl Calcium Level 9.3 mg/dl Total Bilirubin 0.2 mg/dl Direct Bilirubin 0.00 mg/dl Indirect 0.2 mg/dl Bilirubin Aspartate Amino 69 IU/L Transf (AST/SGOT) Alanine 41 IU/L Aminotransferase (ALT/SGPT) Alkaline 458 IU/L Phosphatase Troponin I < 0.012 ng/ml Total Protein 7.2 g/dl Albumin 3.8 g/dl Globulin 3.40 g/dl Albumin/Globulin 1.11 Ratio Test 10/01/18 22:54 10/02/18 01:17 10/02/18 02:26 10/02/18 02:34 Urine Color STRAW Urine Clarity CLEAR Urine pH 5.0 Urine Specific 1.029 [place] Urine Ketones NEGATIVE mg/dL Urine Nitrite NEGATIVE mg/dL Urine Bilirubin NEGATIVE mg/dL Urine NEGATIVE mg/dL Urobilinogen Urine Leukocyte NEGATIVE Sumit/ul Esterase Urine Hemoglobin NEGATIVE mg/dL Urine Glucose 3+ mg/dL Urine Total NEGATIVE mg/dl Protein Bedside Glucose > 595 mg/dL 476 mg/dL Lactic Acid Level 2.7 mmol/L Test 10/02/18 03:55 10/02/18 04:59 Bedside Glucose 241 mg/dL 358 mg/dL Current Medications Medications Dose Sig/Miya Start Time Status Last (Trade) Ordered Route PRN Stop Time Admin Dose Reason Admin Sodium 680 ml @ ONCE ONCE 10/01/18 DC 10/01/18 Chloride 680 mls/hr IV 23:00 22:42 10/01/18 23:59 Discontinue PROTOCOL 10/02/18 DC Miscellaneous all previ... ONCE XX 00:00 10/02/18 00:26 Information (* Miscellaneous Pharmacy Order) Diagnostic 1 ea Q1H XX 10/02/18 Test (Pha) 00:00 (Accu-Chek) Insulin 100 ml @ 0 PER 10/02/18 10/02/18 Human mls/hr PROTOCOL IV 00:00 01:32 Regular 100 unit/ Sodium Chloride Treatment Per 10/02/18 Miscellaneous of protocol XX 00:00 Hypoglycemia: Information 1.BG 51... (* Miscellaneous Pharmacy Order) Dextrose 25 ml Q15M PRN 10/02/18 (D50w IV 00:00 Syringe) .DECREASED GLUCOSE Dextrose 50 ml Q15M PRN 10/02/18 (D50w IV 00:00 Syringe) .DECREASED GLUCOSE Sodium 2,040 ml BOLUS OVER 2 10/01/18 DC 10/01/18 Chloride HOURS STAT 23:51 23:51 (NS) IV* 10/02/18 00:26 Cefepime HCl 50 ml @ ONCE STAT 10/01/18 DC 10/02/18 100 mls/hr IVPB 23:51 00:52 10/02/18 00:26 Vancomycin 250 ml @ ONCE ONCE 10/02/18 DC 10/02/18 HCl 125 mls/hr IVPB 00:00 00:00 10/02/18 01:59 Aspirin 81 mg DAILY PO 10/02/18 (Halfprin) 09:00 20 mg QHS PO 10/02/18 Atorvastatin 21:00 Calcium (Lipitor) Buspirone 5 mg BID PO 10/02/18 HCl 09:00 (Buspar) Docusate 100 mg BID PO 10/02/18 Sodium 09:00 (Colace) Ferrous 325 mg BID PO 10/02/18 Sulfate 09:00 (Ferrous Sulfate (Ec)) Gabapentin 300 mg TID PO 10/02/18 (Neurontin) 09:00 Lisinopril 10 mg DAILY PO 10/02/18 (Zestril) 09:00 Sodium 1,000 ml @ [id number] IV 10/02/18 Chloride 75 mls/hr 01:32 Ondansetron 4 mg Q6H PRN 10/02/18 HCl (Zofran IV NAUSEA 02:00 Inj) AND/OR VOMITING Albuterol 2.5 mg Q2H RESP 10/02/18 (Proventil THERAPY PRN 02:00 0.083% (Neb)) NEB SHORTNESS OF BREATH 650 mg Q6H PRN 10/02/18 Acetaminophen PO PAIN 02:00 (Tylenol LEVEL 1-3 OR Liquid) FEVER Enoxaparin 40 mg DAILY SC 10/02/18 Sodium 09:00 (Lovenox) Piperacillin 100 ml @ Q8 IVPB 10/02/18 Sod/ 200 mls/hr 06:00 Tazobactam Sod Procedures/MDM EKG: Rate/Rhythm: [Normal Sinus Rhythm] QRS, ST, T-waves: [No changes consistent w/ acute ischemia] Impression: [No evidence of ischemia or arrhythmia] Chest X-ray 1V Interpreted by me: Soft Tissue: No acute abnormalities Bones: No acute abnormalities Mediastinum/Cardiac Silhouette/Lungs: [No acute abnormalities] Patient's infectious symptoms have not stabilized and the patient is at risk of rapid decompensation. The patient will be admitted for careful hydration, antibiotic therapy, and infectious source control. Severe Sepsis Assessment: Infectious Source: Unknown, time recognized 9:45 PM End organ damage indicated by: [Lactate > 2.0 mmol/L Severe Sepsis Managment: Blood Cultures X 2 before broad spectrum antibiotics initiated within 3 hours of recognition. 30 ml/kg NS bolus Completed Initial Lactate: 2.5 Repeat Lactate 2.7 Critical Care: Time: 45 minutes, independent of any separately billable procedural time Treatments/Evaluations: Emergent fluid management, while maintaining close respiratory support. Immediate broad spectrum antibiotic therapy. Simultaneous assessment for possible sources in order to direct therapy. Consideration for invasive and chemical support to prevent respiratory or cardiac collapse. Septic Shock Assessment (1 hour post 30 ml/kg fluid bolus): Hypotension (SBP < 90 or 40 mmHg drop, MAP < 65): [No] Lactic acid > 4.0 [No] Perfusion Reassessment for Septic Shock: 90.6 pulse 88 respiratory rate 18 blood pressure 117/77 Heart Exam: [Tachycardic] Lung Exam: [No Crackles] Capillary Refill: [Delayed] Peripheral Pulses: [Radially present] Skin: [Mottled, pale] Accepting Care Team: Current data and ongoing care discussed. Patient also had evidence of severe hyperglycemia but no evidence of diabetic ketoacidosis. He was started on insulin drip protocol, ICU order set. During his stay in the ER, patient was called multiple times eating candy from his bag and became volatile and aggressive when he was told to stop given his severely elevated blood sugars Time: 12 AM Primary Provider: Dr. Bowden Consulting: Deferred to inpatient team Outstanding Data: none Departure Condition: Critical MIKE CHAUDHRY Oct 01, 2018 22:18
[2018-10-01] MEDS ORDERED: SOD CHLORIDE 0.9% 680 ML IV ONE (23:00)
[2018-10-01] MEDS ORDERED: SODIUM CHLORIDE 0.9% 1L BAG IV* STA (23:51)
[2018-10-01] MEDS ORDERED: CEFEPIME 2GM/50 ML (PMX) 50 ML IVPB STA (23:51)
[2018-10-02] VITALS (18 sets, daily range): BP systolic 45–117; BP diastolic 23–85; PULSE 103–130; RESP 16–26; Ht 188 cm; Wt 59.9 kg
[2018-10-02] MEDS ORDERED: INSULIN HUMAN REGULAR 100 UNIT in SOD CHLORIDE 0.9% 99 ML IV SCH ×2
[2018-10-02] MEDS ORDERED: DEXTROSE 50% 50 ML SYRINGE IV PRN ×2
[2018-10-02] MEDS ORDERED: VANCOMYCIN 1 GM (PMX) 250 ML IVPB ONE
[2018-10-02] MEDS ORDERED: ALBUTEROL 0.083% (NEB) 2.5 MG/3 ML AMP NEB PRN (02:00)
[2018-10-02] MEDS: ACCU-CHEK XX SCH ×10 (02:00→14:00)
[2018-10-02] MEDS ORDERED: ONDANSETRON 4 MG INJ IV PRN (02:00)
--- NOTE | 2018-10-02 02:00 | HP ---
Date/Time of Note Date/Time of Note DATE: 10/02/18 TIME: 01:37 Assessment/Plan VTE Prophylaxis SCD applied (from Nsg): Yes Pharmacological prophylaxis: LMWH Lines/Catheters IV Catheter Type (from Nrsg): Saline Lock Assessment/Plan Assessment/Plan 1. Diabetes mellitus with severe hyperglycemia - most likely secondary to medication noncompliance - started on Insulin drip per ICU protocol - will continue monitoring - restart Lantus once sugars better controlled - A1c ordered 2. Bipolar disorder - continue home medications 3. Lactic acidosis - no signs of infection but will continue until cultures negative - UA negative and no signs of infection on CXR - continue trending 4. Iron deficiency anemia - continue iron PO 5. hyponatremia - due to hyperglycemia - correct is 142 6. Hypertension - continue home medications 7. Diet - Carb controlled 8. Disposition - Admit to ICU for insulin drip and close monitoring Result Diagram: 10/01/18225010/01/181 Results 24hrs Laboratory Tests Test 10/01/18 22:33 10/01/18 22:34 10/01/18 22:51 10/01/18 22:54 Bedside Glucose > 595 *H Lactic Acid Level 2.5 *H White Blood Count 9.2 # Red Blood Count 4.19 L Hemoglobin 9.7 L Hematocrit 33.0 L Mean Corpuscular 78.8 L Volume Mean Corpuscular 23.2 L Hemoglobin Mean Corpuscular 29.4 L Hemoglobin Concent Red Cell 14.9 H Distribution Width Platelet Count 330 # Mean Platelet Volume 8.9 Immature 0.700 H Granulocytes % Neutrophils % 88.6 H Lymphocytes % 7.9 L Monocytes % 2.7 Eosinophils % 0.0 Basophils % 0.1 Nucleated Red Blood 0.0 Cells % Immature 0.060 H Granulocytes # Neutrophils # 8.2 H Lymphocytes # 0.7 L Monocytes # 0.3 Eosinophils # 0.0 Basophils # 0.0 Nucleated Red Blood 0.0 Cells # Prothrombin Time 12.1 Prothrombin Time 0.9 Ratio INR International 0.89 Normalized Ratio Activated 26.1 Partial Thromboplast Time Sodium Level 130 L Potassium Level 4.3 Chloride Level 90 L Carbon Dioxide Level 31 Anion Gap 9 Blood Urea Nitrogen 23 H Creatinine 0.67 Est Glomerular > 60 Filtrat Rate mL/min Glucose Level 823 *H Calcium Level 9.3 Total Bilirubin 0.2 Direct Bilirubin 0.00 Indirect Bilirubin 0.2 Aspartate Amino 69 H Transf (AST/SGOT) Alanine 41 Aminotransferase (AL T/SGPT) Alkaline Phosphatase 458 H Troponin I < 0.012 Total Protein 7.2 Albumin 3.8 Globulin 3.40 H Albumin/Globulin 1.11 Ratio Urine Color STRAW Urine Clarity CLEAR Urine pH 5.0 Urine Specific 1.029 [place] Urine Ketones NEGATIVE Urine Nitrite NEGATIVE Urine Bilirubin NEGATIVE Urine Urobilinogen NEGATIVE Urine Leukocyte NEGATIVE Esterase Urine Hemoglobin NEGATIVE Urine Glucose 3+ H Urine Total Protein NEGATIVE Test 10/02/18 01:17 Bedside Glucose > 595 *H HPI/ROS Admit Date/Time Admit Date/Time 10/02/18 0100 Hx of Present Illness 63 yo M with PMH bipolar disorder, chronic back pain, homelessness, substance abuse, and diabetes mellitus presented to ED with multiple complaints. Patient is not very forthcoming with information and getting frustrated when asked questions. Patient admits to chills, nausea, polydipsia, polyuria, abdominal pain, generalized weakness, and shaking. Patient admits to not taking his diabetic medications for a couple months since he ran out. Patient continues to ask for food and states he keeps getting deprived when in the hospital. Patient denies any chest pain, shortness of breath, dizziness, constipation, diarrhea, or urinary discomfort. ROS All 12 systems reviewed and pertinent positives as per HPI. All others negative. Constitutional: chills, fatigue, nausea Eyes: No discharge ENT: No congestion Respiratory: No cough, No shortness of breath, No sputum, No wheezing Cardiovascular: No chest pain, No lightheadedness, No palpitations Gastrointestinal: pain, nausea, vomiting; No constipation, No diarrhea Genitourinary: No dysuria, No flank pain Musculoskeletal: no complaints Skin: No laceration, No rash Neurologic: No confusion, No dizziness, No focal-weakness, No syncope Endocrine: polyuria, polydypsia Lymphatic: no complaints Psychological: nl mood/affect Immunologic: no complaints PMH/Family/Social Past Medical History Medical History: diabetes, other (bipolar) Medications Current Medications Diagnostic Test (Pha) (Accu-Chek) 1 ea Q1H XX ; Start 10/02/18 at 00:00 Insulin Human Regular 100 unit/ Sodium Chloride 100 ml @ 0 mls/hr PER PROTOCOL IV Last administered on 10/02/18at 01:32; Admin Dose 6 MLS/HR; Start 10/02/18 at 00:00 Miscellaneous Information (* Miscellaneous Pharmacy Order) Treatment of Hypoglycemia: 1.BG 51... Per protocol XX ; Start 10/02/18 at 00:00 Dextrose (D50w Syringe) 25 ml Q15M PRN IV .DECREASED GLUCOSE; Start 10/02/18 at 00:00 Dextrose (D50w Syringe) 50 ml Q15M PRN IV .DECREASED GLUCOSE; Start 10/02/18 at 00:00 Vancomycin HCl 250 ml @ 125 mls/hr ONCE ONCE IVPB ; Start 10/02/18 at 00:00; Stop 10/02/18 at 01:59 Aspirin (Halfprin) 81 mg DAILY PO ; Start 10/02/18 at 09:00 Atorvastatin Calcium (Lipitor) 20 mg QHS PO ; Start 10/02/18 at 21:00 Buspirone HCl (Buspar) 5 mg BID PO ; Start 10/02/18 at 09:00 Docusate Sodium (Colace) 100 mg BID PO ; Start 10/02/18 at 09:00 Ferrous Sulfate (Ferrous Sulfate (Ec)) 325 mg BID PO ; Start 10/02/18 at 09:00 Gabapentin (Neurontin) 300 mg TID PO ; Start 10/02/18 at 09:00 Lisinopril (Zestril) 10 mg DAILY PO ; Start 10/02/18 at 09:00 Sodium Chloride 1,000 ml @ 75 mls/hr [id number] IV ; Start 10/02/18 at 01:32 Ondansetron HCl (Zofran Inj) 4 mg Q6H PRN IV NAUSEA AND/OR VOMITING; Start 10/02/18 at 02:00 Albuterol (Proventil 0.083% (Neb)) 2.5 mg Q2H RESP THERAPY PRN NEB SHORTNESS OF BREATH; Start 10/02/18 at 02:00 Acetaminophen (Tylenol Liquid) 650 mg Q6H PRN PO PAIN LEVEL 1-3 OR FEVER; Start 10/02/18 at 02:00 Enoxaparin Sodium (Lovenox) 40 mg DAILY SC ; Start 10/02/18 at 09:00 Coded Allergies: No Known Drug Allergies (Verified Allergy, Unknown, 10/02/18) Past Surgical History Past Surgical Hx: no surgical history Family History Significant Family History: no pertinent family hx Social History Smoking Status: Current every day smoker Drug Use: other Exam/Review of Systems Vital Signs Vitals Vital Signs Date Temp Pulse Resp B/P (MAP) Pulse Ox O2 O2 Flow FiO2 Time Delivery Rate 10/02/18 99.0 112 20 166/92 100 Room Air 01:30 (116) Exam Exam General: Disheveled, cachetic, short tempered, currently lying in bed in no acute distress HEENT: Atraumatic, normocephalic. The pupils are equal, round and reactive. Extraocular motor are intact Neck: Supple with full range of motion. No rigidity or meningismus Chest: Nontender Lungs: Clear to auscultation bilaterally no crackles rales or wheezing Heart: Normal S1-S2, Regular rhythm, tachycardia, no murmurs Abdomen: Soft , nontender, nondistended , bowel sounds are present. No guarding no rebound tenderness , No masses or organomegaly. No costovertebral temporal angle mass Extremities: Normal to inspection, no edema no cyanosis, diffuse muscle wasting Neurologic: Normal mental status, speech normal, cranial nerves II through XII are intact, motor and sensory are intact, Additional Comments Home medications reviewed PROCEDURE: XR Chest. CLINICAL INDICATION: Possible sepsis. TECHNIQUE: AP Portable chest. COMPARISON: [facility] DX CHEST 02/21/2018; CR CHEST 08/28/2017; CR CHEST 10/09/2016; CR CHEST 01/23/2015 FINDINGS: The cardiomediastinal silhouette is normal. Atherosclerotic calcifications of the thoracic aorta are noted. There is underlying hyperaeration. The lungs are clear and costophrenic angles sharp. The osseous structures are grossly unremarkable. IMPRESSION: 1. Underlying hyperaeration with no radiographic evidence of acute cardiopulmonary disease. 2. Atherosclerotic calcifications of the thoracic aorta. RPTAT: HJAH .Selina Pepe MD, MD Date Time Electronically viewed and signed by .Selina Pepe MD, MD on 10/01/2018 22:36 TAI LOREDO MD Oct 02, 2018 01:48
[2018-10-02] MEDS: SOD CHLORIDE 0.9% 1,000 ML IV SCH ×3 (05:50→17:47)
[2018-10-02] MEDS: PIPER-TAZO 3.375 GM IV (PMX) 100 ML IVPB SCH ×3 (05:51→21:10)
[2018-10-02] MEDS: ACETAMINOPHEN 650MG/20.3ML CUP PO PRN (06:03)
[2018-10-02] MEDS ORDERED: MENTHOL/METH SALICYLATE 30 GM OINT TOP PRN ×2 (06:30)
[2018-10-02] MEDS: FERROUS SULFATE (EC) 325 MG TAB PO SCH ×2 (08:33→21:07)
[2018-10-02] MEDS: BUSPIRONE 5 MG TAB PO SCH ×2 (08:34→21:07)
[2018-10-02] MEDS: GABAPENTIN 300 MG CAP PO SCH ×3 (08:34→21:07)
[2018-10-02] MEDS: DOCUSATE SODIUM 100 MG CAP PO SCH ×2 (08:34→21:07)
[2018-10-02] MEDS: LISINOPRIL 10 MG TAB PO SCH (08:35)
[2018-10-02] MEDS: ENOXAPARIN 40 MG/0.4 ML SYG SC SCH (08:36)
[2018-10-02] MEDS: ASPIRIN (EC) 81 MG TAB PO SCH (08:42)
--- NOTE | 2018-10-02 11:01 | PN ---
Date/Time of Note Date/Time of Note DATE: 10/02/18 TIME: 11:01 Assessment/Plan VTE Prophylaxis Risk score (from Ns)>0 risk: 1 SCD applied (from Ns): No SCD contraindicated: other Pharmacological prophylaxis: LMWH Lines/Catheters [facility]ter Type (from [facility]): Peripheral IV Urinary Cath still in place: No Assessment/Plan Hospital Course SUBJECTIVE: The patient on insulin gtt. OBJECTIVE: Physical Exam General: Adequately build 62 year-old male lying in bed in no apparent distress. HEENT: Normocephalic, atraumatic. Eyes: Anicteric sclerae, conjunctivae clear. ENT: Nasal septum midline, oral mucosa moist. Neck supple, no JVD noticed. Respiratory: Bilaterally clear breath sounds. No use of accessory muscles of respiration. No adventitious breath sounds. Cardiovascular: S1, S2 heard. Regular rate and rhythm. Abdomen: Soft, nontender, and nondistended. Bowel sounds positive in all 4 quadrants. Genitourinary: Deferred. Extremities: No cyanosis, no clubbing, no edema. Peripheral pulses palpable. Neurologic: Cranial nerves II through XII grossly intact. The patient is awake, alert, and oriented. Skin: Normal skin turgor. No skin rashes. Vitals & Labs per chart. ASSESSMENT & PLAN 63-year-old male with past medical history of diabetes mellitus, bipolar disorder, chronic back pain, and homelessness who came to the emergency room with multiple complaints. The patient was noticed to have underlying hyp erglycemia. The patient did not have any evidence of DKA. The patient was admitted to inpatient setting for further treatment and evaluation. 1. -Hyperglycemia. -On insulin drip. -No evidence of any DKA. 2. Diabetes mellitus. -Uncontrolled. -Hemoglobin A1C sent out. 3. Bipolar disorder. -Continue mood stabilizers. 4. Hyponatremia. -Etiology could be multifactorial including underlying hyperglycemia. -Resolved. 5. Essential hypertension. -Continue antihypertensives. 6. Dyslipidemia. -Continue statins. 7. Anemia. -Microcytic and hypochromic. -Continue iron supplements. 8. Lactic acidosis. -Etiology unclear. The patient already on antimicrobials. -Continue IV hydration. 9. Homelessness. -galley worker consult. 10. Non-compliance with medications and diet. -Diabetes education consult. 11. Fluids, electrolytes, and nutrition. -NPO. -IVFs. 12. DVT prophylaxis. -SQ Lovenox. 13. Plan. -Continue to treat hyperglycemia. -Turn off insulin drip once hyperglycemia is under control. The patient was seen in collaboration with Dr. Arriaga. CC time: 35 minutes. Result Diagram: 10/02/18 0950 10/02/18 0809 Results 24hrs Laboratory Tests Test 10/01/18 22:33 10/01/18 22:34 10/01/18 22:44 10/01/18 22:51 Bedside Glucose > 595 *H Lactic Acid Level 2.5 *H Hemoglobin A1c White Blood Count 9.2 # Red Blood Count 4.19 L Hemoglobin 9.7 L Hematocrit 33.0 L Mean Corpuscular 78.8 L Volume Mean Corpuscular 23.2 L Hemoglobin Mean Corpuscular 29.4 L Hemoglobin Concent Red Cell 14.9 H Distribution Width Platelet Count 330 # Mean Platelet Volume 8.9 Immature 0.700 H Granulocytes % Neutrophils % 88.6 H Lymphocytes % 7.9 L Monocytes % 2.7 Eosinophils % 0.0 Basophils % 0.1 Nucleated Red Blood 0.0 Cells % Immature 0.060 H Granulocytes # Neutrophils # 8.2 H Lymphocytes # 0.7 L Monocytes # 0.3 Eosinophils # 0.0 Basophils # 0.0 Nucleated Red Blood 0.0 Cells # Prothrombin Time 12.1 Prothrombin Time 0.9 Ratio INR International 0.89 Normalized Ratio Activated 26.1 Partial Thromboplast Time Sodium Level 130 L Potassium Level 4.3 Chloride Level 90 L Carbon Dioxide Level 31 Anion Gap 9 Blood Urea Nitrogen 23 H Creatinine 0.67 Est Glomerular > 60 Filtrat Rate mL/min Glucose Level 823 *H Calcium Level 9.3 Total Bilirubin 0.2 Direct Bilirubin 0.00 Indirect Bilirubin 0.2 Aspartate Amino 69 H Transf (AST/SGOT) Alanine 41 Aminotransferase (AL T/SGPT) Alkaline Phosphatase 458 H Troponin I < 0.012 Total Protein 7.2 Albumin 3.8 Globulin 3.40 H Albumin/Globulin 1.11 Ratio Test 10/01/18 22:54 10/02/18 01:17 10/02/18 02:26 10/02/18 02:34 Urine Color STRAW Urine Clarity CLEAR Urine pH 5.0 Urine Specific 1.029 [place] Urine Ketones NEGATIVE Urine Nitrite NEGATIVE Urine Bilirubin NEGATIVE Urine Urobilinogen NEGATIVE Urine Leukocyte NEGATIVE Esterase Urine Hemoglobin NEGATIVE Urine Glucose 3+ H Urine Total Protein NEGATIVE Bedside Glucose > 595 *H 476 *H Lactic Acid Level 2.7 *H Test 10/02/18 03:55 10/02/18 04:59 10/02/18 06:06 10/02/18 07:38 Bedside Glucose 241 H 358 H 260 H 94 Test 10/02/18 08:09 10/02/18 08:33 10/02/18 09:35 10/02/18 09:50 White Blood Count 1.7 #L 4.1 #L Red Blood Count 3.29 #L 3.51 L Hemoglobin 7.8 L 8.2 L Hematocrit 25.6 #L 27.4 L Mean Corpuscular 77.8 L 78.1 L Volume Mean Corpuscular 23.7 L 23.4 L Hemoglobin Mean Corpuscular 30.5 L 29.9 L Hemoglobin Concent Red Cell 14.1 14.6 H Distribution Width Platelet Count 172 # 203 Mean Platelet Volume 8.4 9.3 Immature 0.000 L 0.500 H Granulocytes % Neutrophils % 95.0 H Segmented 48 Neutrophils % (Manual) Band Neutrophils % 35 H (Manual) Lymphocytes % 4.0 L Lymphocytes % 15 (Manual) Monocytes % 0.5 Monocytes % (Manual) 1 Eosinophils % 0.0 Basophils % 0.0 Myelocytes % 1 H (Manual) Nucleated Red Blood 2 H 0.0 Cells % Immature 0.000 0.020 Granulocytes # Neutrophils # 3.9 Neutrophils # 0.8 L (Manual) Band Neutrophils # 0.5 Lymphocytes (Manual) 0.2 L Lymphocytes # 0.2 L Monocytes # 0.0 L Monocytes # (Manual) 0.0 L Eosinophils # 0.0 Basophils # 0.0 Myelocytes # 0.0 Nucleated Red Blood 0.0 Cells # Platelet Estimate NORMAL Giant Platelets 11 H Polychromasia 1+ Poikilocytosis 1+ Basophilic Stippling 1+ Anisocytosis 1+ Microcytosis 1+ Macrocytosis 1+ Sodium Level 138 Potassium Level 2.5 *L Chloride Level 100 # Carbon Dioxide Level 26 Anion Gap 12 Blood Urea Nitrogen 18 Creatinine 0.67 Est Glomerular > 60 Filtrat Rate mL/min Glucose Level 47 #*L Calcium Level 8.6 Magnesium Level 1.4 L Total Bilirubin 0.1 L Direct Bilirubin 0.00 Indirect Bilirubin 0.1 Aspartate Amino 221 #H Transf (AST/SGOT) Alanine 68 Aminotransferase (AL T/SGPT) Alkaline Phosphatase 330 H Total Protein 5.8 #L Albumin 2.8 #L Globulin 3.00 Albumin/Globulin 0.93 Ratio Bedside Glucose 174 126 Test 10/02/18 10:37 Bedside Glucose 106 Exam/Review of Systems Exam Vitals Vital Signs Date Temp Pulse Resp B/P (MAP) Pulse Ox O2 O2 Flow FiO2 Time Delivery Rate 10/02/18 113 22 102/68 100 Nasal 10:00 (79) Cannula 10/02/18 2.0 08:00 10/02/18 98.8 08:00 Intake and Output 10/01/18 10/01/18 10/02/18 1414:59 22:59 06:59 IntakeIntake Total 103 ml BalanceBalance 103 ml Results Results 24hrs Laboratory Tests Test 10/01/18 22:33 10/01/18 22:34 10/01/18 22:44 10/01/18 22:51 Bedside Glucose > 595 *H Lactic Acid Level 2.5 *H Hemoglobin A1c White Blood Count 9.2 # Red Blood Count 4.19 L Hemoglobin 9.7 L Hematocrit 33.0 L Mean Corpuscular 78.8 L Volume Mean Corpuscular 23.2 L Hemoglobin Mean Corpuscular 29.4 L Hemoglobin Concent Red Cell 14.9 H Distribution Width Platelet Count 330 # Mean Platelet Volume 8.9 Immature 0.700 H Granulocytes % Neutrophils % 88.6 H Lymphocytes % 7.9 L Monocytes % 2.7 Eosinophils % 0.0 Basophils % 0.1 Nucleated Red Blood 0.0 Cells % Immature 0.060 H Granulocytes # Neutrophils # 8.2 H Lymphocytes # 0.7 L Monocytes # 0.3 Eosinophils # 0.0 Basophils # 0.0 Nucleated Red Blood 0.0 Cells # Prothrombin Time 12.1 Prothrombin Time 0.9 Ratio INR International 0.89 Normalized Ratio Activated 26.1 Partial Thromboplast Time Sodium Level 130 L Potassium Level 4.3 Chloride Level 90 L Carbon Dioxide Level 31 Anion Gap 9 Blood Urea Nitrogen 23 H Creatinine 0.67 Est Glomerular > 60 Filtrat Rate mL/min Glucose Level 823 *H Calcium Level 9.3 Total Bilirubin 0.2 Direct Bilirubin 0.00 Indirect Bilirubin 0.2 Aspartate Amino 69 H Transf (AST/SGOT) Alanine 41 Aminotransferase (AL T/SGPT) Alkaline Phosphatase 458 H Troponin I < 0.012 Total Protein 7.2 Albumin 3.8 Globulin 3.40 H Albumin/Globulin 1.11 Ratio Test 10/01/18 22:54 10/02/18 01:17 10/02/18 02:26 10/02/18 02:34 Urine Color STRAW Urine Clarity CLEAR Urine pH 5.0 Urine Specific 1.029 [place] Urine Ketones NEGATIVE Urine Nitrite NEGATIVE Urine Bilirubin NEGATIVE Urine Urobilinogen NEGATIVE Urine Leukocyte NEGATIVE Esterase Urine Hemoglobin NEGATIVE Urine Glucose 3+ H Urine Total Protein NEGATIVE Bedside Glucose > 595 *H 476 *H Lactic Acid Level 2.7 *H Test 10/02/18 03:55 10/02/18 04:59 10/02/18 06:06 10/02/18 07:38 Bedside Glucose 241 H 358 H 260 H 94 Test 10/02/18 08:09 10/02/18 08:33 10/02/18 09:35 10/02/18 09:50 White Blood Count 1.7 #L 4.1 #L Red Blood Count 3.29 #L 3.51 L Hemoglobin 7.8 L 8.2 L Hematocrit 25.6 #L 27.4 L Mean Corpuscular 77.8 L 78.1 L Volume Mean Corpuscular 23.7 L 23.4 L Hemoglobin Mean Corpuscular 30.5 L 29.9 L Hemoglobin Concent Red Cell 14.1 14.6 H Distribution Width Platelet Count 172 # 203 Mean Platelet Volume 8.4 9.3 Immature 0.000 L 0.500 H Granulocytes % Neutrophils % 95.0 H Segmented 48 Neutrophils % (Manual) Band Neutrophils % 35 H (Manual) Lymphocytes % 4.0 L Lymphocytes % 15 (Manual) Monocytes % 0.5 Monocytes % (Manual) 1 Eosinophils % 0.0 Basophils % 0.0 Myelocytes % 1 H (Manual) Nucleated Red Blood 2 H 0.0 Cells % Immature 0.000 0.020 Granulocytes # Neutrophils # 3.9 Neutrophils # 0.8 L (Manual) Band Neutrophils # 0.5 Lymphocytes (Manual) 0.2 L Lymphocytes # 0.2 L Monocytes # 0.0 L Monocytes # (Manual) 0.0 L Eosinophils # 0.0 Basophils # 0.0 Myelocytes # 0.0 Nucleated Red Blood 0.0 Cells # Platelet Estimate NORMAL Giant Platelets 11 H Polychromasia 1+ Poikilocytosis 1+ Basophilic Stippling 1+ Anisocytosis 1+ Microcytosis 1+ Macrocytosis 1+ Sodium Level 138 Potassium Level 2.5 *L Chloride Level 100 # Carbon Dioxide Level 26 Anion Gap 12 Blood Urea Nitrogen 18 Creatinine 0.67 Est Glomerular > 60 Filtrat Rate mL/min Glucose Level 47 #*L Calcium Level 8.6 Magnesium Level 1.4 L Total Bilirubin 0.1 L Direct Bilirubin 0.00 Indirect Bilirubin 0.1 Aspartate Amino 221 #H Transf (AST/SGOT) Alanine 68 Aminotransferase (AL T/SGPT) Alkaline Phosphatase 330 H Total Protein 5.8 #L Albumin 2.8 #L Globulin 3.00 Albumin/Globulin 0.93 Ratio Bedside Glucose 174 126 Test 10/02/18 10:37 Bedside Glucose 106 Medications Medication Current Medications Diagnostic Test (Pha) (Accu-Chek) 1 ea Q1H XX ; Start 10/02/18 at 00:00 Insulin Human Regular 100 unit/ Sodium Chloride 100 ml @ 0 mls/hr PER PROTOCOL IV Last administered on 10/02/18at 01:32; Admin Dose 6 MLS/HR; Start 10/02/18 at 00:00 Miscellaneous Information (* Miscellaneous Pharmacy Order) Treatment of Hypoglycemia: 1.BG 51... Per protocol XX ; Start 10/02/18 at 00:00 Dextrose (D50w Syringe) 25 ml Q15M PRN IV .DECREASED GLUCOSE; Start 10/02/18 at 00:00 Dextrose (D50w Syringe) 50 ml Q15M PRN IV .DECREASED GLUCOSE; Start 10/02/18 at 00:00 Aspirin (Halfprin) 81 mg DAILY PO Last administered on 10/02/18at 08:42; Admin Dose 81 MG; Start 10/02/18 at 09:00 Atorvastatin Calcium (Lipitor) 20 mg QHS PO ; Start 10/02/18 at 21:00 Buspirone HCl (Buspar) 5 mg BID PO Last administered on 10/02/18 08:34; Admin Dose 5 MG; Start 10/02/18 at 09:00 Docusate Sodium (Colace) 100 mg BID PO Last administered on 10/02/18 08:34; Admin Dose 100 MG; Start 10/02/18 at 09:00 Ferrous Sulfate (Ferrous Sulfate (Ec)) 325 mg BID PO Last administered on 10/02/18at 08:33; Admin Dose 325 MG; Start 10/02/18 at 09:00 Gabapentin (Neurontin) 300 mg TID PO Last administered on 10/02/18at 08:34; A dmin Dose 300 MG; Start 10/02/18 at 09:00 Lisinopril (Zestril) 10 mg DAILY PO ; Start 10/02/18 at 09:00 Sodium Chloride 1,000 ml @ 75 mls/hr [id number] IV Last administered on 10/02/18at 05:50; Admin Dose 75 MLS/HR; Start 10/02/18 at 01:32 Ondansetron HCl (Zofran Inj) 4 mg Q6H PRN IV NAUSEA AND/OR VOMITING; Start 10/02/18 at 02:00 Albuterol (Proventil 0.083% (Neb)) 2.5 mg Q2H RESP THERAPY PRN NEB SHORTNESS OF BREATH; Start 10/02/18 at 02:00 Acetaminophen (Tylenol Liquid) 650 mg Q6H PRN PO PAIN LEVEL 1-3 OR FEVER Last administered on 10/02/18at 06:03; Admin Dose 650 MG; Start 10/02/18 at 02:00 Enoxaparin Sodium (Lovenox) 40 mg DAILY SC Last administered on 10/02/18at 08:36; Admin Dose 40 MG; Start 10/02/18 at 09:00 Piperacillin Sod/ Tazobactam Sod 100 ml @ 200 mls/hr Q8 IVPB Last administered on 10/02/18at 05:51; Admin Dose 200 MLS/HR; Start 10/02/18 at 06:00 Menthol/Methyl Salicylate (Memo Erazo) 1 applic TID PRN TOP pain; Start 10/02/18 at 06:30 Tramadol HCl (Ultram) 50 mg Q6H PRN PO MODERATE PAIN LEVEL 4-6; Start 10/02/18 at 11:00 HERRERA SALDAÑA NP Oct 02, 2018 11:01
[2018-10-02] MEDS ORDERED: POTASSIUM CHLORIDE 20 MEQ POWDER FOR ORAL SOLN PO PRN ×3 (11:30)
[2018-10-02] MEDS: POTASSIUM CHLORIDE 50 ML IVPB PRN ×3 (11:44→14:55)
[2018-10-02] MEDS ORDERED: INSULIN GLARGINE [LANTus] (100 UNITS/ML) SYG SC SCH (12:30)
[2018-10-02] MEDS ORDERED: SOD CHLORIDE 0.9% 500 ML IV ONE ×2 (14:30→17:00)
[2018-10-02] MEDS: INSULIN ASPART [NOVOLOG] 3 ML PEN SC SCH ×2 (16:51→21:00)
[2018-10-02] MEDS ORDERED: LACTATED RINGER'S 1,000 ML IV ONE (18:00)
[2018-10-02] MEDS: ATORVASTATIN 20 MG TAB PO SCH (21:08)
[2018-10-02] MEDS ORDERED: SOD CHLORIDE 0.9% 1,000 ML IV ONE ×2 (21:30)
[2018-10-02] MEDS: DEXTROSE 50% 50 ML SYRINGE IV PRN ×3 (21:57→23:51)
[2018-10-02] MEDS ORDERED: GLUCOSE GEL 15 GRAM TUBE BUCCAL PRN (22:00)
[2018-10-02] MEDS ORDERED: GLUCAGON 1 MG INJ IM PRN (22:00)
[2018-10-02] MEDS ORDERED: GLUCOSE GEL 15 GRAM TUBE PO PRN ×2 (22:00)
[2018-10-03] VITALS (23 sets, daily range): BP systolic 78–129; BP diastolic 47–100; PULSE 101–130; RESP 12–31
[2018-10-03] MEDS: ACCU-CHEK XX SCH ×14 (00:50→21:52)
[2018-10-03] MEDS: DEXTROSE 50% 50 ML SYRINGE IV PRN (02:31)
[2018-10-03] MEDS ORDERED: DEXTROSE 10% 1,000 ML IV SCH (03:00)
[2018-10-03] MEDS: PIPER-TAZO 3.375 GM IV (PMX) 100 ML IVPB SCH ×3 (05:47→21:44)
[2018-10-03] MEDS: POTASSIUM CHLORIDE 50 ML IVPB PRN ×3 (07:07→09:55)
[2018-10-03] MEDS: INSULIN ASPART [NOVOLOG] 3 ML PEN SC SCH ×5 (07:35→22:57)
[2018-10-03] MEDS: ASPIRIN (EC) 81 MG TAB PO SCH (08:00)
[2018-10-03] MEDS: BUSPIRONE 5 MG TAB PO SCH ×2 (08:01→21:44)
[2018-10-03] MEDS: FERROUS SULFATE (EC) 325 MG TAB PO SCH ×2 (08:01→21:44)
[2018-10-03] MEDS: GABAPENTIN 300 MG CAP PO SCH ×3 (08:01→21:44)
[2018-10-03] MEDS: DOCUSATE SODIUM 100 MG CAP PO SCH ×2 (08:01→21:44)
[2018-10-03] MEDS: ENOXAPARIN 40 MG/0.4 ML SYG SC SCH (08:05)
[2018-10-03] MEDS: LISINOPRIL 10 MG TAB PO SCH (08:05)
--- NOTE | 2018-10-03 10:22 | PN ---
Date/Time of Note Date/Time of Note DATE: 10/03/18 TIME: 10:19 Assessment/Plan VTE Prophylaxis Risk score (from Ns)>0 risk: 4 SCD applied (from [facility] [place]): No SCD contraindicated: other Pharmacological prophylaxis: NA/contraindicated Pharm contraindication: anticoag not tolerated Lines/Catheters IV C[facility]ter Type (from [facility]): Peripheral IV Urinary Cath still in place: No Assessment/Plan Hospital Course SUBJECTIVE: The patient's insulin drip was discontinued yesterday and was started on sliding scale insulin after giving Lantus. However, the patient became hypoglycemic overnight. Therefore, the patient had to be started on D10. The patient also had a few episodes of hypotension that responded well to IV fluid resuscitation. OBJECTIVE: Physical Exam General: Adequately build 62 year-old male lying in bed in no apparent distress. HEENT: Normocephalic, atraumatic. Eyes: Anicteric sclerae, conjunctivae clear. ENT: Nasal septum midline, oral mucosa moist. Neck supple, no JVD noticed. Respiratory: Bilaterally clear breath sounds. No use of accessory muscles of respiration. No adventitious breath sounds. Cardiovascular: S1, S2 heard. Regular rate and rhythm. Abdomen: Soft, nontender, and nondistended. Bowel sounds positive in all 4 quadrants. Genitourinary: Deferred. Extremities: No cyanosis, no clubbing, no edema. Peripheral pulses palpable. Neurologic: The patient is somnolent. Wakes up to call and answers questions. Vitals & Labs per chart. ASSESSMENT & PLAN 63-year-old male with past medical history of diabetes mellitus, bipolar disorder, chronic back pain, and homelessness who came to the emergency room with multiple complaints. The patient was noticed to have underlying hyperglycemia. The patient did not have any evidence of DKA. The patient was admitted to inpatient setting for further treatment and evaluation. 1. -Hyperglycemia. -S/P insulin drip. -No evidence of any DKA. -Currently on D10% because of hypoglycemic episode last night. 2. Diabetes mellitus. -Uncontrolled. -Hemoglobin A1C sent out. -Continue SSI. Hold basal insulin because of hypoglycemia. 3. Bipolar disorder. -Continue mood stabilizers. 4. Hyponatremia. -Etiology could be multifactorial including underlying hyperglycemia. -Resolved. 5. Essential hypertension. -Continue antihypertensives. 6. Dyslipidemia. -Continue statins. 7. Transaminitis. -Etiology unclear. -Obtain hepatitis panel. 8. Anemia. -Microcytic and hypochromic. -Continue iron supplements. 9. Lactic acidosis. -Etiology unclear. -The patient already on antimicrobials. Will DC if gutiérrez cultures are negative. -Continue IV hydration. 10. Homelessness. -cone worker consult. 11. Non-compliance with medications and diet. -Diabetes education consult. 11. Fluids, electrolytes, and nutrition. -Carbohydrate controlled diet. -IVFs. 12. DVT prophylaxis. -SQ Lovenox. Hold because of worsening anemia. 13. Plan. -Stop D10. -Continue Accu-Cheks every 2 hours. -If the blood sugars are stable, the patient may be switched back to AC at bedtime. -Hold basal insulin. -PT evaluation. The patient was seen in collaboration with Dr. Arriaga. CC time: 35 minutes. Result Diagram: 10/03/1851210/03/18512 Results 24hrs Laboratory Tests Test 10/02/18 10:37 10/02/18 11:39 10/02/18 12:46 10/02/18 13:09 Bedside Glucose 106 144 63 L 97 Test 10/02/18 13:26 10/02/18 16:48 10/02/18 21:12 10/02/18 22:09 Bedside Glucose 124 131 67 L 133 Test 10/02/18 22:42 10/02/18 23:05 10/02/18 23:39 10/03/18 00:11 Bedside Glucose 67 L 105 57 L 97 Test 10/03/18 00:31 10/03/18 01:44 10/03/18 02:28 10/03/18 03:03 Bedside Glucose 103 72 67 L 125 Test 10/03/18 03:47 10/03/18 04:38 10/03/18 05:13 10/03/18 05:46 Bedside Glucose 201 109 104 White Blood Count 12.4 #H Red Blood Count 3.13 L Hemoglobin 7.3 L Hematocrit 23.8 L Mean Corpuscular 76.0 L Volume Mean Corpuscular 23.3 L Hemoglobin Mean Corpuscular 30.7 L Hemoglobin Concent Red Cell 14.3 Distribution Width Platelet Count 162 # Mean Platelet 9.6 Volume Immature 3.000 H Granulocytes % Neutrophils % Segmented 41 Neutrophils % (Manual) Band Neutrophils % 52 H (Manual) Lymphocytes % Lymphocytes % 5 L (Manual) Reactive 1 H Lymphocytes % (Manual) Monocytes % Monocytes % 1 (Manual) Eosinophils % Basophils % Nucleated Red 0.0 Blood Cells % Immature 0.370 H Granulocytes # Neutrophils # Neutrophils # 5.9 (Manual) Band Neutrophils # 6.4 H Lymphocytes 0.6 L (Manual) Lymphocytes # Reactive 0.1 H Lymphocytes # Monocytes # Monocytes # 0.1 L (Manual) Eosinophils # Basophils # Nucleated Red Blood Cells # Platelet Estimate NORMAL Giant Platelets 1 H Polychromasia 1+ Poikilocytosis 1+ Anisocytosis 2+ Microcytosis 2+ Ovalocytes 1+ Acanthocytes 1+ Sodium Level 135 Potassium Level 2.9 *L Chloride Level 104 Carbon Dioxide 27 Level Anion Gap 4 #L Blood Urea 23 H Nitrogen Creatinine 0.73 Est Glomerular > 60 Filtrat Rate mL/min Glucose Level 57 #L Calcium Level 7.7 L Phosphorus Level 3.1 Magnesium Level 1.5 L Total Bilirubin 0.1 L Direct Bilirubin 0.00 Indirect Bilirubin 0.1 Aspartate Amino 241 H Transf (AST/SGOT) Alanine 91 H Aminotransferase ( ALT/SGPT) Alkaline 269 H Phosphatase Total Protein 5.1 L Albumin 2.5 L Globulin 2.60 Albumin/Globulin 0.96 Ratio Test 10/03/18 06:14 10/03/18 07:32 10/03/18 08:10 10/03/18 08:21 Bedside Glucose 185 59 L 94 119 Test 10/03/18 09:16 Lab Scanned Report REFERENCE LAB Exam/Review of Systems Exam Vitals Vital Signs Date Temp Pulse Resp B/P (MAP) Pulse Ox O2 O2 Flow FiO2 Time Delivery Rate 10/03/18 108 15 111/64 100 Room Air 09:00 (80) 10/03/18 98.5 08:00 10/02/18 2.0 08:00 Intake and Output 10/02/18 10/02/18 10/03/18 1515:00 23:00 07:00 IntakeIntake Total 1517.7 ml 4940 ml 1530 ml OutputOutput Total 1 ml 900 ml BalanceBalance 1516.7 ml 4940 ml 630 ml Results Results 24hrs Laboratory Tests Test 10/02/18 10:37 10/02/18 11:39 10/02/18 12:46 10/02/18 13:09 Bedside Glucose 106 144 63 L 97 Test 10/02/18 13:26 10/02/18 16:48 10/02/18 21:12 10/02/18 22:09 Bedside Glucose 124 131 67 L 133 Test 10/02/18 22:42 10/02/18 23:05 10/02/18 23:39 10/03/18 00:11 Bedside Glucose 67 L 105 57 L 97 Test 10/03/18 00:31 10/03/18 01:44 10/03/18 02:28 10/03/18 03:03 Bedside Glucose 103 72 67 L 125 Test 10/03/18 03:47 10/03/18 04:38 10/03/18 05:13 10/03/18 05:46 Bedside Glucose 201 109 104 White Blood Count 12.4 #H Red Blood Count 3.13 L Hemoglobin 7.3 L Hematocrit 23.8 L Mean Corpuscular 76.0 L Volume Mean Corpuscular 23.3 L Hemoglobin Mean Corpuscular 30.7 L Hemoglobin Concent Red Cell 14.3 Distribution Width Platelet Count 162 # Mean Platelet 9.6 Volume Immature 3.000 H Granulocytes % Neutrophils % Segmented 41 Neutrophils % (Manual) Band Neutrophils % 52 H (Manual) Lymphocytes % Lymphocytes % 5 L (Manual) Reactive 1 H Lymphocytes % (Manual) Monocytes % Monocytes % 1 (Manual) Eosinophils % Basophils % Nucleated Red 0.0 Blood Cells % Immature 0.370 H Granulocytes # Neutrophils # Neutrophils # 5.9 (Manual) Band Neutrophils # 6.4 H Lymphocytes 0.6 L (Manual) Lymphocytes # Reactive 0.1 H Lymphocytes # Monocytes # Monocytes # 0.1 L (Manual) Eosinophils # Basophils # Nucleated Red Blood Cells # Platelet Estimate NORMAL Giant Platelets 1 H Polychromasia 1+ Poikilocytosis 1+ Anisocytosis 2+ Microcytosis 2+ Ovalocytes 1+ Acanthocytes 1+ Sodium Level 135 Potassium Level 2.9 *L Chloride Level 104 Carbon Dioxide 27 Level Anion Gap 4 #L Blood Urea 23 H Nitrogen Creatinine 0.73 Est Glomerular > 60 Filtrat Rate mL/min Glucose Level 57 #L Calcium Level 7.7 L Phosphorus Level 3.1 Magnesium Level 1.5 L Total Bilirubin 0.1 L Direct Bilirubin 0.00 Indirect Bilirubin 0.1 Aspartate Amino 241 H Transf (AST/SGOT) Alanine 91 H Aminotransferase ( ALT/SGPT) Alkaline 269 H Phosphatase Total Protein 5.1 L Albumin 2.5 L Globulin 2.60 Albumin/Globulin 0.96 Ratio Test 10/03/18 06:14 10/03/18 07:32 10/03/18 08:10 10/03/18 08:21 Bedside Glucose 185 59 L 94 119 Test 10/03/18 09:16 Lab Scanned Report REFERENCE LAB Medications Medication Current Medications Aspirin (Halfprin) 81 mg DAILY PO Last administered on 10/03/18 08:00; Admin Dose 81 MG; Start 10/02/18 at 09:00 Atorvastatin Calcium (Lipitor) 20 mg QHS PO Last administered on 10/02/18 21:08; Admin Dose 20 MG; Start 10/02/18 at 21:00 Buspirone HCl (Buspar) 5 mg BID PO Last administered on 10/03/18 08:01; Admin Dose 5 MG; Start 10/02/18 at 09:00 Docusate Sodium (Colace) 100 mg BID PO Last administered on 10/03/18 08:01; Admin Dose 100 MG; Start 10/02/18 at 09:00 Ferrous Sulfate (Ferrous Sulfate (Ec)) 325 mg BID PO Last administered on 10/03/18 08:01; Admin Dose 325 MG; Start 10/02/18 at 09:00 Gabapentin (Neurontin) 300 mg TID PO Last administered on 10/03/18 08:01; Admin Dose 300 MG; Start 10/02/18 at 09:00 Lisinopril (Zestril) 10 mg DAILY PO ; Start 10/02/18 at 09:00 Ondansetron HCl (Zofran Inj) 4 mg Q6H PRN IV NAUSEA AND/OR VOMITING; Start 10/02/18 at 02:00 Albuterol (Proventil 0.083% (Neb)) 2.5 mg Q2H RESP THERAPY PRN NEB SHORTNESS OF BREATH; Start 10/02/18 at 02:00 Acetaminophen (Tylenol Liquid) 650 mg Q6H PRN PO PAIN LEVEL 1-3 OR FEVER Last administered on 10/02/18 06:03; Admin Dose 650 MG; Start 10/02/18 at 02:00 Enoxaparin Sodium (Lovenox) 40 mg DAILY SC Last administered on 10/03/18 08:05; Admin Dose 40 MG; Start 10/02/18 at 09:00 Piperacillin Sod/ Tazobactam Sod 100 ml @ 200 mls/hr Q8 IVPB Last administered on 10/03/18at 05:47; Admin Dose 200 MLS/HR; Start 10/02/18 at 06:00 Menthol/Methyl Salicylate (Memo Erazo) 1 applic TID PRN TOP pain; Start 10/02/18 at 06:30 Tramadol HCl (Ultram) 50 mg Q6H PRN PO MODERATE PAIN LEVEL 4-6; Start 10/02/18 at 11:00 Potassium Chloride 50 ml @ 50 mls/hr K PROTOCOL PRN IVPB PENDING LAB VALUE Last administered on 10/03/18at 09:55; Admin Dose 50 MLS/HR; Start 10/02/18 at 11:30 Potassium Chloride (Potassium Chloride Pwd/Soln) 20 meq PER PROTOCOL PRN PO POTASSIUM REPLACEMENT PROTOCOL; Start 10/02/18 at 11:30 Potassium Chloride (Potassium Chloride Pwd/Soln) 30 meq PER PROTOCOL PRN PO POTASSIUM REPLACEMENT PROTOCOL; Start 10/02/18 at 11:30 Potassium Chloride (Potassium Chloride Pwd/Soln) 40 meq PER PROTOCOL PRN PO POTASSIUM REPLACEMENT PROTOCOL; Start 10/02/18 at 11:30 Diagnostic Test (Pha) (Accu-Chek) 1 ea 02 XX Last administered on 10/03/18at 02:34; Admin Dose 1 EA; Start 10/03/18 at 02:00 Insulin Aspart (Novolog Insulin Pen) NOVOLOG *MILD* ALGORITHM WITH MEALS BEDTIME SC ; Start 10/02/18 at 17:35 Miscellaneous Information 1 ea NOTE XX ; Start 10/02/18 at 22:00 Glucose (Glutose) 15 gm Q15M PRN PO DECREASED GLUCOSE; Start 10/02/18 at 22:00 Glucose (Glutose) 22.5 gm Q15M PRN PO DECREASED GLUCOSE; Start 10/02/18 at 22:00 Dextrose (D50w Syringe) 25 ml Q15M PRN IV DECREASED GLUCOSE Last administered on 10/03/18at 02:31; Admin Dose 25 ML; Start 10/02/18 at 22:00 Dextrose (D50w Syringe) 50 ml Q15M PRN IV DECREASED GLUCOSE; Start 10/02/18 at 22:00 Glucagon (Glucagen) 1 mg Q15M PRN IM DECREASED GLUCOSE; Start 10/02/18 at 22:00 Glucose (Glutose) 15 gm Q15M PRN BUCCAL DECREASED GLUCOSE; Start 10/02/18 at 22:00 Diagnostic Test (Pha) (Accu-Chek) 1 ea Q1H XX Last administered on 10/03/18at 09:30; Admin Dose 1 EA; Start 10/03/18 at 00:30 Dextrose 1,000 ml @ 50 mls/hr Q20H IV Last administered on 10/03/18at 03:04; Admin Dose 100 MLS/HR; Start 10/03/18 at 03:00 HERRERA SALDAÑA NP Oct 03, 2018 10:22
[2018-10-03] MEDS ORDERED: MAGNESIUM SULFATE 3 GM in DEXTROSE 5% 100 ML IVPB ONE (10:30)
[2018-10-03] MEDS ORDERED: ACCU-CHEK XX SCH (11:00)
[2018-10-03] MEDS: SOD CHLORIDE 0.9% 1,000 ML IV SCH ×2 (11:02→23:02)
[2018-10-03] MEDS: ATORVASTATIN 20 MG TAB PO SCH (21:44)
[2018-10-04] VITALS (8 sets, daily range): BP systolic 101–131; BP diastolic 60–78; PULSE 93–106; RESP 17–20
[2018-10-04] MEDS: ACCU-CHEK XX SCH ×5 (02:00→21:00)
[2018-10-04] MEDS: PIPER-TAZO 3.375 GM IV (PMX) 100 ML IVPB SCH (06:12)
[2018-10-04] MEDS: INSULIN ASPART [NOVOLOG] 3 ML PEN SC SCH ×6 (07:55→21:00)
[2018-10-04] MEDS: GABAPENTIN 300 MG CAP PO SCH ×3 (11:46→21:18)
[2018-10-04] MEDS: DOCUSATE SODIUM 100 MG CAP PO SCH ×2 (11:47→21:17)
[2018-10-04] MEDS: FERROUS SULFATE (EC) 325 MG TAB PO SCH (11:47)
[2018-10-04] MEDS: ASPIRIN (EC) 81 MG TAB PO SCH (11:47)
[2018-10-04] MEDS: LISINOPRIL 10 MG TAB PO SCH (11:48)
[2018-10-04] MEDS ORDERED: POTASSIUM PHOSPHATE 15 MM in SOD CHLORIDE 0.9% 250 ML IVPB ONE (12:00)
--- NOTE | 2018-10-04 12:09 | PN ---
Date/Time of Note Date/Time of Note DATE: 10/04/18 TIME: 11:58 Assessment/Plan VTE Prophylaxis Risk score (from Ns)>0 risk: 4 SCD applied (from Ns): No SCD contraindicated: other Pharmacological prophylaxis: NA/contraindicated Pharm contraindication: anticoag not tolerated Lines/Catheters [facility] Peripheral IV Urinary Cath still in place: No Assessment/Plan Hospital Course SUBJECTIVE: Nursing reported that the patient is verbally abusive and asking for food all the time. OBJECTIVE: Physical Exam General: Adequately build 62 year-old male lying in bed in no apparent distress. HEENT: Normocephalic, atraumatic. Eyes: Anicteric sclerae, conjunctivae clear. ENT: Nasal septum midline, oral mucosa moist. Neck supple, no JVD noticed. Respiratory: Bilaterally clear breath sounds. No use of accessory muscles of respiration. No adventitious breath sounds. Cardiovascular: S1, S2 heard. Regular rate and rhythm. Abdomen: Soft, nontender, and nondistended. Bowel sounds positive in all 4 quadrants. Genitourinary: Deferred. Extremities: No cyanosis, no clubbing, no edema. Peripheral pulses palpable. Neurologic: The patient is somnolent. Wakes up to call and answers questions. Vitals & Labs per chart. ASSESSMENT & PLAN 63-year-old male with past medical history of diabetes mellitus, bipolar disorder, chronic back pain, and homelessness who came to the emergency room with multiple complaints. The patient was noticed to have underlying hyperglycemia. The patient did not have any evidence of DKA. The patient was admitted to inpatient setting for further treatment and evaluation. 1. -Hyperglycemia. -S/P insulin drip. -No evidence of any DKA. -Continue sliding scale insulin along with pre-meal insulin basal insulin. 2. Diabetes mellitus. -Uncontrolled. -Hemoglobin A1C >14sent out. -Continue SSI. I had pre-meal insulin and basal insulin since there are no more episodes of hypoglycemia and the patient is currently hyperglycemic. 3. Bipolar disorder. -Continue mood stabilizers. 4. Hyponatremia. -Etiology could be multifactorial including underlying hyperglycemia. -Correct hyperglycemia. -Monitor. 5. Essential hypertension. -Continue antihypertensives. 6. Dyslipidemia. -Continue statins. 7. Transaminitis. -Etiology unclear. -Hepatitis panel negative. 8. Anemia. -Microcytic and hypochromic. -Iron panel showing high ferritin levels. Stop iron supplements. -Stool OB X1 positive. -Needs further workup including endoscopy. 9. Lactic acidosis. -Etiology unclear. -The patient already on antimicrobials. DC antimicrobials since gutiérrez cultures are negative and the patient remains afebrile. 10. Homelessness. 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 11. Non-compliance with medications and diet. -Diabetes education consult. 12. Fluids, electrolytes, and nutrition. -Carbohydrate controlled diet. -DC IVFs. 13. DVT prophylaxis. -SQ Lovenox. Held because of worsening anemia. 14. Plan. -Correct electrolytes. -Correct hyperglycemia. -The patient may be transferred to medical surgical floor. -Obtain gastroenterology evaluation. The patient was seen in collaboration with Dr. Arriaga. Result Diagram: 10/04/18 0903 10/04/18 0903 Results 24hrs Laboratory Tests Test 10/03/18 12:15 10/03/18 17:23 10/03/18 21:51 10/04/18 09:03 Bedside Glucose 140 293 H 324 H White Blood Count 9.9 # Red Blood Count 3.20 L Hemoglobin 7.4 L Hematocrit 24.6 L Mean Corpuscular 76.9 L Volume Mean Corpuscular 23.1 L Hemoglobin Mean Corpuscular 30.1 L Hemoglobin Concent Red Cell 14.4 Distribution Width Platelet Count 114 #L Mean Platelet Volume 10.3 Immature 7.700 H Granulocytes % Neutrophils % Segmented 71 Neutrophils % (Manual) Band Neutrophils % 15 H (Manual) Lymphocytes % Lymphocytes % 11 L (Manual) Monocytes % Monocytes % (Manual) 3 Eosinophils % Basophils % Nucleated Red Blood 0.0 Cells % Immature 0.760 H Granulocytes # Neutrophils # Neutrophils # 7.2 (Manual) Band Neutrophils # 1.4 H Lymphocytes (Manual) 1.0 Lymphocytes # Monocytes # Monocytes # (Manual) 0.2 L Eosinophils # Basophils # Nucleated Red Blood Cells # Platelet Estimate DECREASED Poikilocytosis 2+ Anisocytosis 2+ Microcytosis 2+ Sodium Level 134 L Potassium Level 3.1 L Chloride Level 104 Carbon Dioxide Level 25 Anion Gap 5 Blood Urea Nitrogen 23 H Creatinine 0.54 L Est Glomerular > 60 Filtrat Rate mL/min Glucose Level 334 #H Calcium Level 8.0 L Phosphorus Level 2.1 #L Magnesium Level 2.1 Total Bilirubin 0.1 L Direct Bilirubin 0.00 Indirect Bilirubin 0.1 Aspartate Amino 129 H Transf (AST/SGOT) Alanine 75 H Aminotransferase (AL T/SGPT) Alkaline Phosphatase 516 #H Total Protein 5.5 L Albumin 2.5 L Globulin 3.00 Albumin/Globulin 0.83 Ratio Test 10/04/18 11:46 Bedside Glucose 529 *H Exam/Review of Systems Exam Vitals Vital Signs Date Temp Pulse Resp B/P (MAP) Pulse Ox O2 O2 Flow FiO2 Time Delivery Rate 10/04/18 98.2 93 20 119/71 96 Room Air 10:54 (87) 10/02/18 2.0 08:00 Intake and Output 10/03/18 10/03/18 10/04/18 1515:00 23:00 07:00 IntakeIntake Total 1030 ml 250 ml 550 ml BalanceBalance 1030 ml 250 ml 550 ml Results Results 24hrs Laboratory Tests Test 10/03/18 12:15 10/03/18 17:23 10/03/18 21:51 10/04/18 09:03 Bedside Glucose 140 293 H 324 H White Blood Count 9.9 # Red Blood Count 3.20 L Hemoglobin 7.4 L Hematocrit 24.6 L Mean Corpuscular 76.9 L Volume Mean Corpuscular 23.1 L Hemoglobin Mean Corpuscular 30.1 L Hemoglobin Concent Red Cell 14.4 Distribution Width Platelet Count 114 #L Mean Platelet Volume 10.3 Immature 7.700 H Granulocytes % Neutrophils % Segmented 71 Neutrophils % (Manual) Band Neutrophils % 15 H (Manual) Lymphocytes % Lymphocytes % 11 L (Manual) Monocytes % Monocytes % (Manual) 3 Eosinophils % Basophils % Nucleated Red Blood 0.0 Cells % Immature 0.760 H Granulocytes # Neutrophils # Neutrophils # 7.2 (Manual) Band Neutrophils # 1.4 H Lymphocytes (Manual) 1.0 Lymphocytes # Monocytes # Monocytes # (Manual) 0.2 L Eosinophils # Basophils # Nucleated Red Blood Cells # Platelet Estimate DECREASED Poikilocytosis 2+ Anisocytosis 2+ Microcytosis 2+ Sodium Level 134 L Potassium Level 3.1 L Chloride Level 104 Carbon Dioxide Level 25 Anion Gap 5 Blood Urea Nitrogen 23 H Creatinine 0.54 L Est Glomerular > 60 Filtrat Rate mL/min Glucose Level 334 #H Calcium Level 8.0 L Phosphorus Level 2.1 #L Magnesium Level 2.1 Total Bilirubin 0.1 L Direct Bilirubin 0.00 Indirect Bilirubin 0.1 Aspartate Amino 129 H Transf (AST/SGOT) Alanine 75 H Aminotransferase (AL T/SGPT) Alkaline Phosphatase 516 #H Total Protein 5.5 L Albumin 2.5 L Globulin 3.00 Albumin/Globulin 0.83 Ratio Test 10/04/18 11:46 Bedside Glucose 529 *H Medications Medication Current Medications Aspirin (Halfprin) 81 mg DAILY PO Last administered on 10/04/18 11:47; Admin Dose 81 MG; Start 10/02/18 at 09:00 Atorvastatin Calcium (Lipitor) 20 mg QHS PO Last administered on 10/03/18 21:44; Admin Dose 20 MG; Start 10/02/18 at 21:00 Buspirone HCl (Buspar) 5 mg BID PO Last administered on 10/03/18 21:44; Admin Dose 5 MG; Start 10/02/18 at 09:00 Docusate Sodium (Colace) 100 mg BID PO Last administered on 10/04/18 11:47; Admin Dose 100 MG; Start 10/02/18 at 09:00 Ferrous Sulfate (Ferrous Sulfate (Ec)) 325 mg BID PO Last administered on 10/04/18 11:47; Admin Dose 325 MG; Start 10/02/18 at 09:00 Gabapentin (Neurontin) 300 mg TID PO Last administered on 10/04/18 11:46; Admin Dose 300 MG; Start 10/02/18 at 09:00 Lisinopril (Zestril) 10 mg DAILY PO Last administered on 10/04/18 11:48; Admin Dose 10 MG; Start 10/02/18 at 09:00 Ondansetron HCl (Zofran Inj) 4 mg Q6H PRN IV NAUSEA AND/OR VOMITING; Start 10/02/18 at 02:00 Albuterol (Proventil 0.083% (Neb)) 2.5 mg Q2H RESP THERAPY PRN NEB SHORTNESS OF BREATH; Start 10/02/18 at 02:00 Acetaminophen (Tylenol Liquid) 650 mg Q6H PRN PO PAIN LEVEL 1-3 OR FEVER Last administered on 10/02/18 06:03; Admin Dose 650 MG; Start 10/02/18 at 02:00 Piperacillin Sod/ Tazobactam Sod 100 ml @ 200 mls/hr Q8 IVPB Last administered on 10/04/18at 06:12; Admin Dose 200 MLS/HR; Start 10/02/18 at 06:00 Menthol/Methyl Salicylate (Memo Erazo) 1 applic TID PRN TOP pain; Start 10/02/18 at 06:30 Tramadol HCl (Ultram) 50 mg Q6H PRN PO MODERATE PAIN LEVEL 4-6; Start 10/02/18 at 11:00 Potassium Chloride 50 ml @ 50 mls/hr K PROTOCOL PRN IVPB PENDING LAB VALUE Last administered on 10/03/18at 09:55; Admin Dose 50 MLS/HR; Start 10/02/18 at 11:30 Potassium Chloride (Potassium Chloride Pwd/Soln) 20 meq PER PROTOCOL PRN PO POTASSIUM REPLACEMENT PROTOCOL; Start 10/02/18 at 11:30 Potassium Chloride (Potassium Chloride Pwd/Soln) 30 meq PER PROTOCOL PRN PO POTASSIUM REPLACEMENT PROTOCOL; Start 10/02/18 at 11:30 Potassium Chloride (Potassium Chloride Pwd/Soln) 40 meq PER PROTOCOL PRN PO POTASSIUM REPLACEMENT PROTOCOL; Start 10/02/18 at 11:30 Diagnostic Test (Pha) (Accu-Chek) 1 ea 02 XX Last administered on 10/03/18at 02:34; Admin Dose 1 EA; Start 10/03/18 at 02:00 Insulin Aspart (Novolog Insulin Pen) NOVOLOG *MILD* ALGORITHM WITH MEALS BEDTIME SC Last administered on 10/03/18at 22:57; Admin Dose 4 UNIT; Start 10/02/18 at 17:35 Miscellaneous Information 1 ea NOTE XX ; Start 10/02/18 at 22:00 Glucose (Glutose) 15 gm Q15M PRN PO DECREASED GLUCOSE; Start 10/02/18 at 22:00 Glucose (Glutose) 22.5 gm Q15M PRN PO DECREASED GLUCOSE; Start 10/02/18 at 22:00 Dextrose (D50w Syringe) 25 ml Q15M PRN IV DECREASED GLUCOSE Last administered on 10/03/18at 02:31; Admin Dose 25 ML; Start 10/02/18 at 22:00 Dextrose (D50w Syringe) 50 ml Q15M PRN IV DECREASED GLUCOSE; Start 10/02/18 at 22:00 Glucagon (Glucagen) 1 mg Q15M PRN IM DECREASED GLUCOSE; Start 2/19/19 at 22:00 Glucose (Glutose) 15 gm Q15M PRN BUCCAL DECREASED GLUCOSE; Start 10/02/18 at 22:00 Sodium Chloride 1,000 ml @ 75 mls/hr [id number] IV Last administered on 10/03/18at 23:02; Admin Dose 75 MLS/HR; Start 10/03/18 at 10:26 Diagnostic Test (Pha) (Accu-Chek) 1 ea AC MEALS AND BEDTIME XX Last administered on 10/04/18at 11:51; Admin Dose 1 EA; Start 10/03/18 at 17:05 Insulin Glargine (Lantus) 18 units DAILY@0800 SC ; Start 10/04/18 at 12:00; Status UNV Insulin Aspart (Novolog Insulin Pen) 6 unit WITH MEALS SC ; Start 10/04/18 at 17:55; Status UNV Potassium Phosphate 15 mm/ Sodium Chloride 255 ml @ 63.75 mls/ hr ONCE ONCE IVPB ; Start 10/04/18 at 12:00; Stop 10/04/18 at 15:59; Status UNV HERRERA SALDAÑA NP Oct 04, 2018 12:09
[2018-10-04] MEDS: BUSPIRONE 5 MG TAB PO SCH ×2 (12:50→21:17)
[2018-10-04] MEDS: INSULIN GLARGINE [LANTus] (100 UNITS/ML) SYG SC SCH (13:05)
--- NOTE | 2018-10-04 13:17 | CONS ---
Assessment/Plan Assessment/Plan Hospital Course (Demo Recall) Assessment: Microcytic hypochromic anemia- likely multifactorial -FBOT + Elevated LFTs- with very elevated ALk phos Diarrhea -Stool cx- Coliform Diabetes mellitus- with hyperglycemia-poorly controlled HTN Hyponatremia Bipolar disorder Homelessness Plan: PPI tx Will check CDIFF Clear liquid diet NPO after 10/05/18 0800 EGD/colonoscopy tomorrow Alk phos fractionation Abd u/s assess CBD- if dilated will attempt to proceed with MRCP - however patient may be uncooperative Patient seen in collaboration with Dr. Diaz CC: DILAN DIAZ ; Consultation Date/Type/Reason Admit Date/Time 10/02/18 0100 Date of Consultation: Oct 04, 2018 Type of Consult GI Reason for Consultation Anemia/FOBT positive Date/Time of Note DATE: 10/04/18 TIME: 12:50 Hx of Present Illness This is a 63 year old male with PMH of poorly controlled DM, substance abuse, elevated cholesterol, Bipolar disorder who initially presented to the hospital with multiple complaints. During hospitalization anemia was noted, a stool for occult blood was obtained and was positive. GI has been consulted for further evaluation. Hemoglobin today is 7.4 with hematocrit of 24.6, MCV 76.9, MCH 23.1, patient with noted elevated LFTs AST 129, ALT 75, point phosphatase is 516, total bilirubin 0.1 hemoglobin A1c was checked noted >14. Time evaluation patient not very cooperative with physical exam he does complain of rectal bleeding which is been on and off for some time unclear what sometimes means as he is not able to give me an appropriate response. Patient states he is never had an upper endoscopy or colonoscopy and there is no family history of colon cancer that he is aware of. Given clinical picture we will plan for EGD colonoscopy I reviewed risk/benefits of both procedure and sedation patient verbalized understanding and at this time is agreeable to procedures we will start preparations today and put patient is scheduled for tomorrow. Review of Systems: A 12 system, review was conducted and is negative except as noted in the HPI or here. Past Medical History Medical History: diabetes, other (bipolar) Home Meds Active Scripts Metformin Hcl (Glucophage) 500 Mg Tablet, 500 MG PO WITH BREAKFAST DINNE, #30 TAB Prov:NIK CHANDRA MD 08/05/18 Insulin Lispro (Humalog Kwikpen U-100) 100 Unit/1 Ml Insuln.pen, 15 UNIT SQ AC A for 30 Days, EA Prov:NIK CHANDRA MD 08/05/18 Insulin Regular, Human (Humulin R) 100 Unit/1 Ml Vial, 5 UNIT IJ TID for 30 Days, VIAL Prov:NIK CHANDRA MD 08/05/18 Insulin Lispro (Humalog Kwikpen U-100) 100 Unit/1 Ml Insuln.pen, 32 UNIT SQ Daily at Bedtime for 30 Days, #30 Prov:NIK CHANDRA MD 08/05/18 Reported Medications Buspirone Hcl* (Buspirone Hcl*) 10 Mg Tab, 5 MG PO BID, TAB 08/05/18 Lisinopril* (Lisinopril*) 10 Mg Tablet, 10 MG PO DAILY, #30 TAB 08/05/18 Insulin Glargine,Hum.rec.anlog (Basaglar Kwikpen U-100) 100 Unit/1 Ml Insuln.pen, 32 UNIT SC QHS, EA 08/05/18 Insulin Regular, Human (Humulin R) 100 Unit/1 Ml Vial, 5 UNIT IJ TID, VIAL 08/05/18 Insulin Lispro (Humalog Kwikpen U-100) 100 Unit/1 Ml Insuln.pen, 15 UNIT SQ AC A, EA 08/05/18 Atorvastatin Calcium* (Atorvastatin Calcium*) 20 Mg Tablet, 20 MG PO QHS, #30 TAB 08/05/18 Gabapentin* (Gabapentin*) 300 Mg Capsule, 300 MG PO TID, #90 CAP 08/05/18 Metformin Hcl* (Metformin Hcl*) 500 Mg Tablet, 500 MG PO WITH BREAKFAST DINNE, #60 TAB 08/05/18 Docusate Sodium* (Dok*) 100 Mg Tablet, 100 MG PO BID, #60 CAP 08/05/18 Ferrous Sulfate* (Ferrous Sulfate*) 325 Mg Tabec, 325 MG PO BID, TAB 08/05/18 Aspirin (Low Dose Aspirin) 81 Mg Tablet.dr, 81 MG PO DAILY, #30 TAB 08/05/18 Medications Current Medications Aspirin (Halfprin) 81 mg DAILY PO Last administered on 10/04/18at 11:47; Admin Dose 81 MG; Start 10/02/18 at 09:00 Atorvastatin Calcium (Lipitor) 20 mg QHS PO Last administered on 10/03/18 21:44; Admin Dose 20 MG; Start 10/02/18 at 21:00 Buspirone HCl (Buspar) 5 mg BID PO Last administered on 10/03/18 21:44; Admin Dose 5 MG; Start 10/02/18 at 09:00 Docusate Sodium (Colace) 100 mg BID PO Last administered on 10/04/18 11:47; Admin Dose 100 MG; Start 10/02/18 at 09:00 Gabapentin (Neurontin) 300 mg TID PO Last administered on 10/04/18 11:46; Admin Dose 300 MG; Start 10/02/18 at 09:00 Lisinopril (Zestril) 10 mg DAILY PO Last administered on 10/04/18 11:48; Admin Dose 10 MG; Start 10/02/18 at 09:00 Ondansetron HCl (Zofran Inj) 4 mg Q6H PRN IV NAUSEA AND/OR VOMITING; Start 10/02/18 at 02:00 Albuterol (Proventil 0.083% (Neb)) 2.5 mg Q2H RESP THERAPY PRN NEB SHORTNESS OF BREATH; Start 10/02/18 at 02:00 Acetaminophen (Tylenol Liquid) 650 mg Q6H PRN PO PAIN LEVEL 1-3 OR FEVER Last administered on 10/02/18 06:03; Admin Dose 650 MG; Start 10/02/18 at 02:00 Menthol/Methyl Salicylate (Memo Erazo) 1 applic TID PRN TOP pain; Start 10/02/18 at 06:30 Tramadol HCl (Ultram) 50 mg Q6H PRN PO MODERATE PAIN LEVEL 4-6; Start 10/02/18 at 11:00 Potassium Chloride 50 ml @ 50 mls/hr K PROTOCOL PRN IVPB PENDING LAB VALUE Last administered on 10/03/18 09:55; Admin Dose 50 MLS/HR; Start 10/02/18 at 11:30 Potassium Chloride (Potassium Chloride Pwd/Soln) 20 meq PER PROTOCOL PRN PO POTASSIUM REPLACEMENT PROTOCOL; Start 10/02/18 at 11:30 Potassium Chloride (Potassium Chloride Pwd/Soln) 30 meq PER PROTOCOL PRN PO POTASSIUM REPLACEMENT PROTOCOL; Start 10/02/18 at 11:30 Potassium Chloride (Potassium Chloride Pwd/Soln) 40 meq PER PROTOCOL PRN PO POTASSIUM REPLACEMENT PROTOCOL; Start 10/02/18 at 11:30 Diagnostic Test (Pha) (Accu-Chek) 1 ea 02 XX Last administered on 10/03/18at 02:34; Admin Dose 1 EA; Start 10/03/18 at 02:00 Insulin Aspart (Novolog Insulin Pen) NOVOLOG *MILD* ALGORITHM WITH MEALS BEDTIME SC Last administered on 10/03/18at 22:57; Admin Dose 4 UNIT; Start 10/02/18 at 17:35 Miscellaneous Information 1 ea NOTE XX ; Start 10/02/18 at 22:00 Glucose (Glutose) 15 gm Q15M PRN PO DECREASED GLUCOSE; Start 10/02/18 at 22:00 Glucose (Glutose) 22.5 gm Q15M PRN PO DECREASED GLUCOSE; Start 10/02/18 at 22:00 Dextrose (D50w Syringe) 25 ml Q15M PRN IV DECREASED GLUCOSE Last administered on 10/03/18at 02:31; Admin Dose 25 ML; Start 10/02/18 at 22:00 Dextrose (D50w Syringe) 50 ml Q15M PRN IV DECREASED GLUCOSE; Start 10/02/18 at 22:00 Glucagon (Glucagen) 1 mg Q15M PRN IM DECREASED GLUCOSE; Start 10/02/18 at 22:00 Glucose (Glutose) 15 gm Q15M PRN BUCCAL DECREASED GLUCOSE; Start 10/02/18 at 22:00 Diagnostic Test (Pha) (Accu-Chek) 1 ea AC MEALS AND BEDTIME XX Last administered on 10/04/18at 11:51; Admin Dose 1 EA; Start 10/03/18 at 17:05 Insulin Glargine (Lantus) 18 units DAILY@0800 SC ; Start 10/04/18 at 12:00 Insulin Aspart (Novolog Insulin Pen) 6 unit WITH MEALS SC ; Start 10/04/18 at 17:55 Potassium Phosphate 15 mm/ Sodium Chloride 255 ml @ 63.75 mls/ hr ONCE ONCE IVPB ; Start 10/04/18 at 12:00; Stop 10/04/18 at 15:59 Allergies: Coded Allergies: No Known Drug Allergies (Verified Allergy, Unknown, 10/02/18) Past Surgical History Past Surgical Hx: no surgical history Social History Smoking Status: Current every day smoker Drug Use: other Exam/Review of Systems Exam Vitals Vital Signs Date Temp Pulse Resp B/P (MAP) Pulse Ox O2 O2 Flow FiO2 Time Delivery Rate 10/04/18 94 12:26 10/04/18 98.2 20 119/71 96 Room Air 10:54 (87) 10/02/18 2.0 08:00 Intake and Output 10/03/18 10/03/18 10/04/18 1515:00 23:00 07:00 IntakeIntake Total 1030 ml 250 ml 550 ml BalanceBalance 1030 ml 250 ml 550 ml PHYSICAL EXAMINATION: GENERAL: Alert & oriented x 3, in no acute distress SKIN: No lesions EYES: Pupils equal reactive to light, no discharge. EARS/NOSE AND THROAT: Ears normal, nose normal NECK: Supple. CHEST: Inspection within normal limits. CARDIOVASCULAR: Heart: Regular rate and rhythm RESPIRATORY: Lungs clear to auscultation GASTROINTESTINAL AND LIVER: Abdomen: Soft, non tenderness, non-distended, no hernias, no masses, no organomegaly, no ascites, no guarding, no rebound tenderness, normoactive bowel sounds. Rectal: Deferred. GENITOURINARY: Male genitalia within normal limits. EXTREMITIES: No cyanosis, clubbing or edema. Results Result Diagram: 10/04/18 0903 10/04/18 0903 Results 24hrs Laboratory Tests Test 10/03/18 17:23 10/03/18 21:51 10/04/18 09:03 10/04/18 11:46 Bedside Glucose 293 H 324 H 529 *H White Blood Count 9.9 # Red Blood Count 3.20 L Hemoglobin 7.4 L Hematocrit 24.6 L Mean Corpuscular 76.9 L Volume Mean Corpuscular 23.1 L Hemoglobin Mean Corpuscular 30.1 L Hemoglobin Concent Red Cell 14.4 Distribution Width Platelet Count 114 #L Mean Platelet Volume 10.3 Immature 7.700 H Granulocytes % Neutrophils % Segmented 71 Neutrophils % (Manual) Band Neutrophils % 15 H (Manual) Lymphocytes % Lymphocytes % 11 L (Manual) Monocytes % Monocytes % (Manual) 3 Eosinophils % Basophils % Nucleated Red Blood 0.0 Cells % Immature 0.760 H Granulocytes # Neutrophils # Neutrophils # 7.2 (Manual) Band Neutrophils # 1.4 H Lymphocytes (Manual) 1.0 Lymphocytes # Monocytes # Monocytes # (Manual) 0.2 L Eosinophils # Basophils # Nucleated Red Blood Cells # Platelet Estimate DECREASED Poikilocytosis 2+ Anisocytosis 2+ Microcytosis 2+ Sodium Level 134 L Potassium Level 3.1 L Chloride Level 104 Carbon Dioxide Level 25 Anion Gap 5 Blood Urea Nitrogen 23 H Creatinine 0.54 L Est Glomerular > 60 Filtrat Rate mL/min Glucose Level 334 #H Calcium Level 8.0 L Phosphorus Level 2.1 #L Magnesium Level 2.1 Total Bilirubin 0.1 L Direct Bilirubin 0.00 Indirect Bilirubin 0.1 Aspartate Amino 129 H Transf (AST/SGOT) Alanine 75 H Aminotransferase (AL T/SGPT) Alkaline Phosphatase 516 #H Total Protein 5.5 L Albumin 2.5 L Globulin 3.00 Albumin/Globulin 0.83 Ratio Test 10/04/18 12:12 Lactate 759 H Dehydrogenase Medications Medication Current Medications Aspirin (Halfprin) 81 mg DAILY PO Last administered on 10/04/18 11:47; Admin Dose 81 MG; Start 10/02/18 at 09:00 Atorvastatin Calcium (Lipitor) 20 mg QHS PO Last administered on 10/03/18 21:44; Admin Dose 20 MG; Start 10/02/18 at 21:00 Buspirone HCl (Buspar) 5 mg BID PO Last administered on 10/03/18 21:44; Admin Dose 5 MG; Start 10/02/18 at 09:00 Docusate Sodium (Colace) 100 mg BID PO Last administered on 10/04/18 11:47; Admin Dose 100 MG; Start 10/02/18 at 09:00 Gabapentin (Neurontin) 300 mg TID PO Last administered on 10/04/18 11:46; Admin Dose 300 MG; Start 10/02/18 at 09:00 Lisinopril (Zestril) 10 mg DAILY PO Last administered on 10/04/18 11:48; Admin Dose 10 MG; Start 10/02/18 at 09:00 Ondansetron HCl (Zofran Inj) 4 mg Q6H PRN IV NAUSEA AND/OR VOMITING; Start 10/02/18 at 02:00 Albuterol (Proventil 0.083% (Neb)) 2.5 mg Q2H RESP THERAPY PRN NEB SHORTNESS OF BREATH; Start 10/02/18 at 02:00 Acetaminophen (Tylenol Liquid) 650 mg Q6H PRN PO PAIN LEVEL 1-3 OR FEVER Last administered on 10/02/18at 06:03; Admin Dose 650 MG; Start 10/02/18 at 02:00 Menthol/Methyl Salicylate (Memo Erazo) 1 applic TID PRN TOP pain; Start 10/02/18 at 06:30 Tramadol HCl (Ultram) 50 mg Q6H PRN PO MODERATE PAIN LEVEL 4-6; Start 10/02/18 at 11:00 Potassium Chloride 50 ml @ 50 mls/hr K PROTOCOL PRN IVPB PENDING LAB VALUE Last administered on 10/03/18at 09:55; Admin Dose 50 MLS/HR; Start 10/02/18 at 11:30 Potassium Chloride (Potassium Chloride Pwd/Soln) 20 meq PER PROTOCOL PRN PO POTASSIUM REPLACEMENT PROTOCOL; Start 10/02/18 at 11:30 Potassium Chloride (Potassium Chloride Pwd/Soln) 30 meq PER PROTOCOL PRN PO POTASSIUM REPLACEMENT PROTOCOL; Start 10/02/18 at 11:30 Potassium Chloride (Potassium Chloride Pwd/Soln) 40 meq PER PROTOCOL PRN PO PO TASSIUM REPLACEMENT PROTOCOL; Start 10/02/18 at 11:30 Diagnostic Test (Pha) (Accu-Chek) 1 ea 02 XX Last administered on 10/03/18at 02:34; Admin Dose 1 EA; Start 10/03/18 at 02:00 Insulin Aspart (Novolog Insulin Pen) NOVOLOG *MILD* ALGORITHM WITH MEALS BEDTIME SC Last administered on 10/03/18at 22:57; Admin Dose 4 UNIT; Start 10/02/18 at 17:35 Miscellaneous Information 1 ea NOTE XX ; Start 10/02/18 at 22:00 Glucose (Glutose) 15 gm Q15M PRN PO DECREASED GLUCOSE; Start 10/02/18 at 22:00 Glucose (Glutose) 22.5 gm Q15M PRN PO DECREASED GLUCOSE; Start 10/02/18 at 22:00 Dextrose (D50w Syringe) 25 ml Q15M PRN IV DECREASED GLUCOSE Last administered on 10/03/18at 02:31; Admin Dose 25 ML; Start 10/02/18 at 22:00 Dextrose (D50w Syringe) 50 ml Q15M PRN IV DECREASED GLUCOSE; Start 10/02/18 at 22:00 Glucagon (Glucagen) 1 mg Q15M PRN IM DECREASED GLUCOSE; Start 10/02/18 at 22:00 Glucose (Glutose) 15 gm Q15M PRN BUCCAL DECREASED GLUCOSE; Start 10/02/18 at 22:00 Diagnostic Test (Pha) (Accu-Chek) 1 ea AC MEALS AND BEDTIME XX Last administered on 10/04/18at 11:51; Admin Dose 1 EA; Start 10/03/18 at 17:05 Insulin Glargine (Lantus) 18 units DAILY@0800 SC ; Start 10/04/18 at 12:00 Insulin Aspart (Novolog Insulin Pen) 6 unit WITH MEALS SC ; Start 10/04/18 at 17:55 Potassium Phosphate 15 mm/ Sodium Chloride 255 ml @ 63.75 mls/ hr ONCE ONCE IVPB ; Start 10/04/18 at 12:00; Stop 10/04/18 at 15:59 OLIVA BOWER Oct 04, 2018 13:00
[2018-10-04] MEDS: BISACODYL (EC) 5 MG TAB PO ONE ×2 (13:30→17:22)
[2018-10-04] MEDS: MAGNESIUM CITRATE 300 ML BTL PO ONE ×2 (17:22→17:45)
--- NOTE | 2018-10-04 17:26 | PREAC ---
Date/Time of Note Date/Time of Note DATE: 10/04/18 TIME: 17:24 Anesthesia Eval and Record Evaluation Time Pre-Procedure Interview DATE: 10/04/18 TIME: 17:24 Age 63 Sex male NPO: 8 hrs Preoperative diagnosis Microcytic hypochromic anemia- likely multifactorial Planned procedure EGD/Colonoscopy Past Medical History Past Medical History: Includes Cardio: HTN Endo: Diabetes Heme: Anemia Psych: Bipolar Surgery & Anesthesia Issues No known issue Meds Anticoagulation: No Beta Jose Alejandro within 24 hr: No Reason Beta Jose Alejandro not given: Pt. not on B-Jose Alejandro Active Scripts Metformin Hcl (Glucophage) 500 Mg Tablet, 500 MG PO WITH BREAKFAST DINNE, #30 TAB Prov:NIK CHANDRA MD 08/05/18 Insulin Lispro (Humalog Kwikpen U-100) 100 Unit/1 Ml Insuln.pen, 15 UNIT SQ AC A for 30 Days, EA Prov:NIK CHANDRA MD 08/05/18 Insulin Regular, Human (Humulin R) 100 Unit/1 Ml Vial, 5 UNIT IJ TID for 30 Days, VIAL Prov:NIK CHANDRA MD 08/05/18 Insulin Lispro (Humalog Kwikpen U-100) 100 Unit/1 Ml Insuln.pen, 32 UNIT SQ Daily at Bedtime for 30 Days, #30 Prov:NIK CHANDRA MD 08/05/18 Reported Medications Buspirone Hcl* (Buspirone Hcl*) 10 Mg Tab, 5 MG PO BID, TAB 08/05/18 Lisinopril* (Lisinopril*) 10 Mg Tablet, 10 MG PO DAILY, #30 TAB 08/05/18 Insulin Glargine,Hum.rec.anlog (Basaglar Kwikpen U-100) 100 Unit/1 Ml Insuln.pen, 32 UNIT SC QHS, EA 08/05/18 Insulin Regular, Human (Humulin R) 100 Unit/1 Ml Vial, 5 UNIT IJ TID, VIAL 08/05/18 Insulin Lispro (Humalog Kwikpen U-100) 100 Unit/1 Ml Insuln.pen, 15 UNIT SQ AC A, EA 08/05/18 Atorvastatin Calcium* (Atorvastatin Calcium*) 20 Mg Tablet, 20 MG PO QHS, #30 TAB 08/05/18 Gabapentin* (Gabapentin*) 300 Mg Capsule, 300 MG PO TID, #90 CAP 08/05/18 Metformin Hcl* (Metformin Hcl*) 500 Mg Tablet, 500 MG PO WITH BREAKFAST DINNE, #60 TAB 08/05/18 Docusate Sodium* (Dok*) 100 Mg Tablet, 100 MG PO BID, #60 CAP 08/05/18 Ferrous Sulfate* (Ferrous Sulfate*) 325 Mg Tabec, 325 MG PO BID, TAB 08/05/18 Aspirin (Low Dose Aspirin) 81 Mg Tablet.dr, 81 MG PO DAILY, #30 TAB 08/05/18 Current Medications Aspirin (Halfprin) 81 mg DAILY PO Last administered on 10/04/18 11:47; Admin Dose 81 MG; Start 10/02/18 at 09:00 Atorvastatin Calcium (Lipitor) 20 mg QHS PO Last administered on 10/03/18at 21:44; Admin Dose 20 MG; Start 10/02/18 at 21:00 Buspirone HCl (Buspar) 5 mg BID PO Last administered on 10/04/18at 12:50; Admin Dose 5 MG; Start 10/02/18 at 09:00 Docusate Sodium (Colace) 100 mg BID PO Last administered on 10/04/18at 11:47; Admin Dose 100 MG; Start 10/02/18 at 09:00 Gabapentin (Neurontin) 300 mg TID PO Last administered on 10/04/18at 12:50; Admin Dose 300 MG; Start 10/02/18 at 09:00 Lisinopril (Zestril) 10 mg DAILY PO Last administered on 10/04/18at 11:48; Admin Dose 10 MG; Start 10/02/18 at 09:00 Ondansetron HCl (Zofran Inj) 4 mg Q6H PRN IV NAUSEA AND/OR VOMITING; Start 10/02/18 at 02:00 Albuterol (Proventil 0.083% (Neb)) 2.5 mg Q2H RESP THERAPY PRN NEB SHORTNESS OF BREATH; Start 10/02/18 at 02:00 Acetaminophen (Tylenol Liquid) 650 mg Q6H PRN PO PAIN LEVEL 1-3 OR FEVER Last administered on 10/02/18at 06:03; Admin Dose 650 MG; Start 10/02/18 at 02:00 Menthol/Methyl Salicylate (Memo Erazo) 1 applic TID PRN TOP pain; Start 10/02/18 at 06:30 Tramadol HCl (Ultram) 50 mg Q6H PRN PO MODERATE PAIN LEVEL 4-6; Start 10/02/18 at 11:00 Potassium Chloride 50 ml @ 50 mls/hr K PROTOCOL PRN IVPB PENDING LAB VALUE Last administered on 10/03/18at 09:55; Admin Dose 50 MLS/HR; Start 10/02/18 at 11:30 Potassium Chloride (Potassium Chloride Pwd/Soln) 20 meq PER PROTOCOL PRN PO PO TASSIUM REPLACEMENT PROTOCOL; Start 10/02/18 at 11:30 Potassium Chloride (Potassium Chloride Pwd/Soln) 30 meq PER PROTOCOL PRN PO POTASSIUM REPLACEMENT PROTOCOL; Start 10/02/18 at 11:30 Potassium Chloride (Potassium Chloride Pwd/Soln) 40 meq PER PROTOCOL PRN PO POTASSIUM REPLACEMENT PROTOCOL; Start 10/02/18 at 11:30 Diagnostic Test (Pha) (Accu-Chek) 1 ea 02 XX Last administered on 10/03/18at 02:34; Admin Dose 1 EA; Start 10/03/18 at 02:00 Insulin Aspart (Novolog Insulin Pen) NOVOLOG *MILD* ALGORITHM WITH MEALS BEDTIME SC Last administered on 10/04/18at 17:20; Admin Dose 5 UNIT; Start 10/02/18 at 17:35 Miscellaneous Information 1 ea NOTE XX ; Start 10/02/18 at 22:00 Glucose (Glutose) 15 gm Q15M PRN PO DECREASED GLUCOSE; Start 10/02/18 at 22:00 Glucose (Glutose) 22.5 gm Q15M PRN PO DECREASED GLUCOSE; Start 10/02/18 at 22:00 Dextrose (D50w Syringe) 25 ml Q15M PRN IV DECREASED GLUCOSE Last administered on 10/03/18at 02:31; Admin Dose 25 ML; Start 10/02/18 at 22:00 Dextrose (D50w Syringe) 50 ml Q15M PRN IV DECREASED GLUCOSE; Start 10/02/18 at 22:00 Glucagon (Glucagen) 1 mg Q15M PRN IM DECREASED GLUCOSE; Start 10/02/18 at 22:00 Glucose (Glutose) 15 gm Q15M PRN BUCCAL DECREASED GLUCOSE; Start 10/02/18 at 22:00 Diagnostic Test (Pha) (Accu-Chek) 1 ea AC MEALS AND BEDTIME XX Last a dministered on 10/04/18at 11:51; Admin Dose 1 EA; Start 10/03/18 at 17:05 Insulin Glargine (Lantus) 18 units DAILY@0800 SC Last administered on 10/04/18at 13:05; Admin Dose 18 UNITS; Start 10/04/18 at 12:00 Insulin Aspart (Novolog Insulin Pen) 6 unit WITH MEALS SC Last administered on 10/04/18at 13:05; Admin Dose 6 UNIT; Start 10/04/18 at 17:55 Magnesium Citrate (Citroma) 300 ml ONCE ONCE PO Last administered on 10/04/18at 17:22; Admin Dose 300 ML; Start 10/04/18 at 17:30; Stop 10/04/18 at 17:31 Polyethylene Glycol (Miralax) 119 gm ONCE ONCE PO ; Start 10/04/18 at 18:30; Stop 10/04/18 at 18:31 Polyethylene Glycol (Miralax) 119 gm 2ND DOSE (GI PREP) ONCE PO ; Start 10/05/18 at 06:00; Stop 10/05/18 at 06:01 Bisacodyl (Dulcolax) 10 mg 2ND DOSE (GI PREP) ONCE PO ; Start 10/05/18 at 08:00; Stop 10/05/18 at 08:01 Pantoprazole (Protonix Iv) 40 mg DAILY@06 IV ; Start 10/05/18 at 06:00 Meds reviewed: Yes Allergies Coded Allergies: No Known Drug Allergies (Verified Allergy, Unknown, 10/02/18) Allergies Reviewed: Yes Labs/Studies Labs Reviewed: Reviewed by anesthesiologist Result Diagram: 10/04/1890210/04/18902 Laboratory Tests 10/04/18 09:03 test: N/A Studies: ECG (ST), CXR ( Atherosclerotic calcifications of the thoracic aorta are noted) Pre-procedure Exam Last vitals Vital Signs Date Temp Pulse Resp B/P (MAP) Pulse Ox O2 O2 Flow FiO2 Time Delivery Rate 10/04/18 94 12:26 10/04/18 98.2 20 119/71 96 Room Air 10:54 (87) 10/02/18 2.0 08:00 Airway: Adequate mouth opening Mallampati: Mallampati II Teeth: Abnormal Lung: Normal Heart: Normal ASA Physical Status ASA physical status: 2 Emergency: None Planned Anesthetic General/MAC: MAC Pre-operative Attestations Prior to commencing anesthesia and surgery, the patient was re-evaluated, there was verification of: *The patient's identity *The results of appropriate recent lab work and preoperative vital signs *The above evaluation not changing prior to induction *Anesthetic plan, risk benefits, alternative and complications discussed with patient/family; questions answered; patient/family understands, accepts and wishes to proceed. PARESH VIVAR Oct 04, 2018 17:26
--- NOTE | 2018-10-04 17:37 | PREAC ---
Date/Time of Note Date/Time of Note DATE: 10/04/18 TIME: 17:36 Anesthesia Eval and Record Evaluation Time Pre-Procedure Interview DATE: 10/04/18 TIME: 17:36 Age 63 Sex male NPO: 8 hrs Planned procedure colonoscopy Past Medical History Past Medical History: Includes Cardio: HTN Endo: Diabetes Surgery & Anesthesia Issues No known issue Meds Anticoagulation: No Beta Jose Alejandro within 24 hr: No Reason Beta Jose Alejandro not given: Pt. not on B-Jose Alejandro Active Scripts Metformin Hcl (Glucophage) 500 Mg Tablet, 500 MG PO WITH BREAKFAST DINNE, #30 TAB Prov:NIK CHANDRA MD 08/05/18 Insulin Lispro (Humalog Kwikpen U-100) 100 Unit/1 Ml Insuln.pen, 15 UNIT SQ AC A for 30 Days, EA Prov:NIK CHANDRA MD 08/05/18 Insulin Regular, Human (Humulin R) 100 Unit/1 Ml Vial, 5 UNIT IJ TID for 30 Day s, VIAL Prov:NIK CHANDRA MD 08/05/18 Insulin Lispro (Humalog Kwikpen U-100) 100 Unit/1 Ml Insuln.pen, 32 UNIT SQ Daily at Bedtime for 30 Days, #30 Prov:NIK CHANDRA MD 08/05/18 Reported Medications Buspirone Hcl* (Buspirone Hcl*) 10 Mg Tab, 5 MG PO BID, TAB 08/05/18 Lisinopril* (Lisinopril*) 10 Mg Tablet, 10 MG PO DAILY, #30 TAB 08/05/18 Insulin Glargine,Hum.rec.anlog (Basaglar Kwikpen U-100) 100 Unit/1 Ml Insuln.pen, 32 UNIT SC QHS, EA 08/05/18 Insulin Regular, Human (Humulin R) 100 Unit/1 Ml Vial, 5 UNIT IJ TID, VIAL 08/05/18 Insulin Lispro (Humalog Kwikpen U-100) 100 Unit/1 Ml Insuln.pen, 15 UNIT SQ AC A, EA 08/05/18 Atorvastatin Calcium* (Atorvastatin Calcium*) 20 Mg Tablet, 20 MG PO QHS, #30 TAB 08/05/18 Gabapentin* (Gabapentin*) 300 Mg Capsule, 300 MG PO TID, #90 CAP 08/05/18 Metformin Hcl* (Metformin Hcl*) 500 Mg Tablet, 500 MG PO WITH BREAKFAST DINNE, #60 TAB 08/05/18 Docusate Sodium* (Dok*) 100 Mg Tablet, 100 MG PO BID, #60 CAP 08/05/18 Ferrous Sulfate* (Ferrous Sulfate*) 325 Mg Tabec, 325 MG PO BID, TAB 08/05/18 Aspirin (Low Dose Aspirin) 81 Mg Tablet.dr, 81 MG PO DAILY, #30 TAB 08/05/18 Current Medications Aspirin (Halfprin) 81 mg DAILY PO Last administered on 10/04/18 11:47; Admin Dose 81 MG; Start 10/02/18 at 09:00 Atorvastatin Calcium (Lipitor) 20 mg QHS PO Last administered on 10/03/18 21:44; Admin Dose 20 MG; Start 10/02/18 at 21:00 Buspirone HCl (Buspar) 5 mg BID PO Last administered on 10/04/18 12:50; Admin Dose 5 MG; Start 10/02/18 at 09:00 Docusate Sodium (Colace) 100 mg BID PO Last administered on 10/04/18 11:47; Admin Dose 100 MG; Start 10/02/18 at 09:00 Gabapentin (Neurontin) 300 mg TID PO Last administered on 10/04/18 12:50; Admin Dose 300 MG; Start 10/02/18 at 09:00 Lisinopril (Zestril) 10 mg DAILY PO Last administered on 10/04/18 11:48; Admin Dose 10 MG; Start 10/02/18 at 09:00 Ondansetron HCl (Zofran Inj) 4 mg Q6H PRN IV NAUSEA AND/OR VOMITING; Start 10/02/18 at 02:00 Albuterol (Proventil 0.083% (Neb)) 2.5 mg Q2H RESP THERAPY PRN NEB SHORTNESS OF BREATH; Start 10/02/18 at 02:00 Acetaminophen (Tylenol Liquid) 650 mg Q6H PRN PO PAIN LEVEL 1-3 OR FEVER Last administered on 10/02/18 06:03; Admin Dose 650 MG; Start 10/02/18 at 02:00 Menthol/Methyl Salicylate (Memo Erazo) 1 applic TID PRN TOP pain; Start 10/02/18 at 06:30 Tramadol HCl (Ultram) 50 mg Q6H PRN PO MODERATE PAIN LEVEL 4-6; Start 10/02/18 at 11:00 Potassium Chloride 50 ml @ 50 mls/hr K PROTOCOL PRN IVPB PENDING LAB VALUE Last administered on 10/03/18at 09:55; Admin Dose 50 MLS/HR; Start 10/02/18 at 11:30 Potassium Chloride (Potassium Chloride Pwd/Soln) 20 meq PER PROTOCOL PRN PO POTASSIUM REPLACEMENT PROTOCOL; Start 10/02/18 at 11:30 Potassium Chloride (Potassium Chloride Pwd/Soln) 30 meq PER PROTOCOL PRN PO POTASSIUM REPLACEMENT PROTOCOL; Start 10/02/18 at 11:30 Potassium Chloride (Potassium Chloride Pwd/Soln) 40 meq PER PROTOCOL PRN PO POTASSIUM REPLACEMENT PROTOCOL; Start 10/02/18 at 11:30 Diagnostic Test (Pha) (Accu-Chek) 1 ea 02 XX Last administered on 10/03/18at 02:34; Admin Dose 1 EA; Start 10/03/18 at 02:00 Insulin Aspart (Novolog Insulin Pen) NOVOLOG *MILD* ALGORITHM WITH MEALS BEDTIME SC Last administered on 10/04/18at 17:20; Admin Dose 5 UNIT; Start 10/02/18 at 17:35 Miscellaneous Information 1 ea NOTE XX ; Start 10/02/18 at 22:00 Glucose (Glutose) 15 gm Q15M PRN PO DECREASED GLUCOSE; Start 10/02/18 at 22:00 Glucose (Glutose) 22.5 gm Q15M PRN PO DECREASED GLUCOSE; Start 10/02/18 at 22:00 Dextrose (D50w Syringe) 25 ml Q15M PRN IV DECREASED GLUCOSE Last administered on 10/03/18at 02:31; Admin Dose 25 ML; Start 10/02/18 at 22:00 Dextrose (D50w Syringe) 50 ml Q15M PRN IV DECREASED GLUCOSE; Start 10/02/18 at 22:00 Glucagon (Glucagen) 1 mg Q15M PRN IM DECREASED GLUCOSE; Start 10/02/18 at 22:00 Glucose (Glutose) 15 gm Q15M PRN BUCCAL DECREASED GLUCOSE; Start 10/02/18 at 22:00 Diagnostic Test (Pha) (Accu-Chek) 1 ea AC MEALS AND BEDTIME XX Last administered on 10/04/18at 11:51; Admin Dose 1 EA; Start 10/03/18 at 17:05 Insulin Glargine (Lantus) 18 units DAILY@0800 SC Last administered on 10/04/18at 13:05; Admin Dose 18 UNITS; Start 10/04/18 at 12:00 Insulin Aspart (Novolog Insulin Pen) 6 unit WITH MEALS SC Last administered on 10/04/18at 17:20; Admin Dose 6 UNIT; Start 10/04/18 at 17:55 Polyethylene Glycol (Miralax) 119 gm ONCE ONCE PO ; Start 10/04/18 at 18:30; Stop 10/04/18 at 18:31 Polyethylene Glycol (Miralax) 119 gm 2ND DOSE (GI PREP) ONCE PO ; Start 10/05/18 at 06:00; Stop 10/05/18 at 06:01 Bisacodyl (Dulcolax) 10 mg 2ND DOSE (GI PREP) ONCE PO ; Start 10/05/18 at 08:00; Stop 10/05/18 at 08:01 Pantoprazole (Protonix Iv) 40 mg DAILY@06 IV ; Start 10/05/18 at 06:00 Meds reviewed: Yes Allergies Coded Allergies: No Known Drug Allergies (Verified Allergy, Unknown, 10/02/18) Allergies Reviewed: Yes Labs/Studies Labs Reviewed: Reviewed by anesthesiologist Result Diagram: 10/04/1890210/04/18902 Laboratory Tests 10/04/18 09:03 test: N/A Studies: ECG (SR), CXR (Elevated right hemidiaphragm. Minimal atelectasis in the left mid lung. No consolidations. No pneumothorax. ), 2D Echo (EF 65%) Pre-procedure Exam Last vitals Vital Signs Date Temp Pulse Resp B/P (MAP) Pulse Ox O2 O2 Flow FiO2 Time Delivery Rate 10/04/18 94 12:26 10/04/18 98.2 20 119/71 96 Room Air 10:54 (87) 10/02/18 2.0 08:00 Airway: Adequate mouth opening Mallampati: Mallampati II Teeth: Normal Lung: Normal Heart: Normal ASA Physical Status ASA physical status: 2 Emergency: None Planned Anesthetic General/MAC: MAC Pre-operative Attestations Prior to commencing anesthesia and surgery, the patient was re-evaluated, there was verification of: *The patient's identity *The results of appropriate recent lab work and preoperative vital signs *The above evaluation not changing prior to induction *Anesthetic plan, risk benefits, alternative and complications discussed with patient/family; questions answered; patient/family understands, accepts and wis hes to proceed. PARESH VIVAR Oct 04, 2018 17:37
[2018-10-04] MEDS ORDERED: POLYETHYLENE GLYCOL 3350 119 GM POWDER PO ONE (18:30)
[2018-10-04] MEDS: ATORVASTATIN 20 MG TAB PO SCH (21:17)
[2018-10-04] MEDS: traMADol 50 MG TAB PO PRN (21:18)
[2018-10-05] MEDS: CALCIUM CARBONATE 500 MG CHEW TAB PO PRN (01:34)
[2018-10-05] MEDS: ACETAMINOPHEN 650MG/20.3ML CUP PO PRN (01:38)
[2018-10-05 02:00] VITALS: BP_SYST 106; BP_SYST 140; BP_DIAS 67; BP_DIAS 68; PULSE 69; PULSE 97; RESP 20
[2018-10-05] MEDS: ACCU-CHEK XX SCH ×5 (02:00→20:56)
[2018-10-05] MEDS ORDERED: POLYETHYLENE GLYCOL 3350 119 GM POWDER PO ONE (06:00)
[2018-10-05] MEDS ORDERED: PANTOPRAZOLE 40 MG INJ IV SCH (06:00)
[2018-10-05 08:00] VITALS: BP 118/58; PULSE 89; RESP 18
[2018-10-05] MEDS ORDERED: BISACODYL (EC) 5 MG TAB PO ONE (08:00)
[2018-10-05] MEDS: INSULIN ASPART [NOVOLOG] 3 ML PEN SC SCH ×7 (08:08→20:56)
[2018-10-05] MEDS: GABAPENTIN 300 MG CAP PO SCH ×3 (08:10→20:52)
[2018-10-05] MEDS: BUSPIRONE 5 MG TAB PO SCH ×2 (08:10→20:52)
[2018-10-05] MEDS: LISINOPRIL 10 MG TAB PO SCH (08:13)
[2018-10-05] MEDS: ASPIRIN (EC) 81 MG TAB PO SCH (08:13)
[2018-10-05] MEDS: INSULIN GLARGINE [LANTus] (100 UNITS/ML) SYG SC SCH (08:19)
[2018-10-05] MEDS: DOCUSATE SODIUM 100 MG CAP PO SCH ×2 (08:20→20:53)
[2018-10-05] MEDS ORDERED: POTASSIUM PHOSPHATE 15 MM in SOD CHLORIDE 0.9% 250 ML IVPB ONE (09:00)
[2018-10-05] MEDS: POTASSIUM CHLORIDE 100 ML IVPB SCH ×3 (13:32→15:43)
--- NOTE | 2018-10-05 14:59 | PN ---
Date/Time of Note Date/Time of Note DATE: 10/05/18 TIME: 14:54 Assessment/Plan VTE Prophylaxis Risk score (from N[facility])>0 risk: 3 [place] [facility] [place] contraindicated: other Pharmacological prophylaxis: NA/contraindicated Pharm contraindication: anticoag not tolerated Lines/Catheters IV [facility] Type [facility]from [facility] Saline Lock Urinary Cath still in place: No Assessment/Plan Hospital Course SUBJECTIVE: The patient was non-complaint with bowel preparation for endoscopy. OBJECTIVE: Physical Exam General: Adequately build 62 year-old male lying in bed in no apparent distress. HEENT: Normocephalic, atraumatic. Eyes: Anicteric sclerae, conjunctivae clear. ENT: Nasal septum midline, oral mucosa moist. Neck supple, no JVD noticed. Respiratory: Bilaterally clear breath sounds. No use of accessory muscles of respiration. No adventitious breath sounds. Cardiovascular: S1, S2 heard. Regular rate and rhythm. Abdomen: Soft, nontender, and nondistended. Bowel sounds positive in all 4 quadrants. Genitourinary: Deferred. Extremities: No cyanosis, no clubbing, no edema. Peripheral pulses palpable. Neurologic: The patient is somnolent. Wakes up to call and answers questions. Vitals & Labs per chart. ASSESSMENT & PLAN 63-year-old male with past medical history of diabetes mellitus, bipolar disorder, chronic back pain, and homelessness who came to the emergency room with multiple complaints. The patient was noticed to have underlying hyperglycemia. The patient did not have any evidence of DKA. The patient was admitted to inpatient setting for further treatment and evaluation. 1. -Hyperglycemia. -S/P insulin drip. -No evidence of any DKA. -Continue sliding scale insulin along with pre-meal insulin basal insulin. 2. Diabetes mellitus. -Uncontrolled. -Hemoglobin A1C >14sent out. -Continue SSI along with pre-meal insulin and basal insulin. 3. Bipolar disorder. -Continue mood stabilizers. 4. Hyponatremia. -Etiology could be multifactorial including underlying hyperglycemia. -Correct hyperglycemia. -Monitor. 5. Essential hypertension. -Continue antihypertensives. 6. Dyslipidemia. -Continue statins. 7. Transaminitis. -Etiology unclear. -Hepatitis panel negative. 8. Anemia. -Microcytic and hypochromic. -Iron panel showing high ferritin levels. -Stool OB X1 positive. Repeat stool for OB negative. -Elevated LDH with CBC from admission showing nucleated RBC, concerning for hemolytic anemia. Obtain hematology consult. -Endoscopy with the patient is cooperative with bowel preparation. 9. Lactic acidosis. -Etiology unclear. -The patient was initially on antimicrobials. Antimicrobials discontinued since gutiérrez cultures are negative and the patient remains afebrile. 10. Homelessness. -ventilation worker consult. 11. Severe protein calorie malnutrition. -Podiatry consult. -Dietary supplements. 12. Non-compliance with medications and diet. -Reinforced importance of compliance.. 13. Fluids, electrolytes, and nutrition. -Carbohydrate controlled diet. 14. DVT prophylaxis. -SQ Lovenox. Held because of worsening anemia. 15. Plan. -Correct electrolytes. -Correct hyperglycemia. -Obtain hematology consult. The patient was seen in collaboration with Dr. Arriaga. Result Diagram: 10/05/1834 10/05/18 0534 Results 24hrs Laboratory Tests Test 10/04/18 15:15 10/04/18 17:16 10/04/18 20:28 10/05/18 05:34 Stool Occult Blood NEGATIVE Bedside Glucose 327 H 169 White Blood Count 7.7 # Red Blood Count 3.07 L Hemoglobin 7.3 L Hematocrit 23.2 L Mean Corpuscular 75.6 L Volume Mean Corpuscular 23.8 L Hemoglobin Mean Corpuscular 31.5 L Hemoglobin Concent Red Cell 14.0 Distribution Width Platelet Count 101 L Mean Platelet Volume 10.5 H Immature 0.800 H Granulocytes % Neutrophils % Segmented 64 Neutrophils % (Manual) Band Neutrophils % 10 H (Manual) Lymphocytes % Lymphocytes % 23 (Manual) Monocytes % Monocytes % (Manual) 3 Eosinophils % Basophils % Nucleated Red Blood 0.0 Cells % Immature 0.060 H Granulocytes # Neutrophils # Neutrophils # 5.0 (Manual) Band Neutrophils # 0.7 H Lymphocytes (Manual) 1.7 Lymphocytes # Monocytes # Monocytes # (Manual) 0.2 L Eosinophils # Basophils # Nucleated Red Blood Cells # Platelet Estimate DECREASED Polychromasia 1+ Anisocytosis 1+ Microcytosis 1+ Sodium Level 134 L Potassium Level 2.7 *L Chloride Level 103 Carbon Dioxide Level 28 Anion Gap 3 L Blood Urea Nitrogen 20 Creatinine 0.55 L Est Glomerular > 60 Filtrat Rate mL/min Glucose Level 219 # Calcium Level 8.1 L Phosphorus Level 2.2 L Magnesium Level 1.8 Test 10/05/18 08:05 10/05/18 12:47 Bedside Glucose 263 H 189 Exam/Review of Systems Exam Vitals Vital Signs Date Temp Pulse Resp B/P (MAP) Pulse Ox O2 O2 Flow FiO2 Time Delivery Rate 10/05/18 98.1 89 18 118/58 98 Room Air 08:00 (78) 10/02/18 2.0 08:00 Intake and Output 10/04/18 10/04/18 10/05/18 1515:00 23:00 07:00 IntakeIntake Total 235 ml 300 ml OutputOutput Total 800 ml BalanceBalance 235 ml -500 ml Results Results 24hrs Laboratory Tests Test 10/04/18 15:15 10/04/18 17:16 10/04/18 20:28 10/05/18 05:34 Stool Occult Blood NEGATIVE Bedside Glucose 327 H 169 White Blood Count 7.7 # Red Blood Count 3.07 L Hemoglobin 7.3 L Hematocrit 23.2 L Mean Corpuscular 75.6 L Volume Mean Corpuscular 23.8 L Hemoglobin Mean Corpuscular 31.5 L Hemoglobin Concent Red Cell 14.0 Distribution Width Platelet Count 101 L Mean Platelet Volume 10.5 H Immature 0.800 H Granulocytes % Neutrophils % Segmented 64 Neutrophils % (Manual) Band Neutrophils % 10 H (Manual) Lymphocytes % Lymphocytes % 23 (Manual) Monocytes % Monocytes % (Manual) 3 Eosinophils % Basophils % Nucleated Red Blood 0.0 Cells % Immature 0.060 H Granulocytes # Neutrophils # Neutrophils # 5.0 (Manual) Band Neutrophils # 0.7 H Lymphocytes (Manual) 1.7 Lymphocytes # Monocytes # Monocytes # (Manual) 0.2 L Eosinophils # Basophils # Nucleated Red Blood Cells # Platelet Estimate DECREASED Polychromasia 1+ Anisocytosis 1+ Microcytosis 1+ Sodium Level 134 L Potassium Level 2.7 *L Chloride Level 103 Carbon Dioxide Level 28 Anion Gap 3 L Blood Urea Nitrogen 20 Creatinine 0.55 L Est Glomerular > 60 Filtrat Rate mL/min Glucose Level 219 # Calcium Level 8.1 L Phosphorus Level 2.2 L Magnesium Level 1.8 Test 10/05/18 08:05 10/05/18 12:47 Bedside Glucose 263 H 189 Medications Medication Current Medications Aspirin (Halfprin) 81 mg DAILY PO Last administered on 10/05/18at 08:13; Admin Dose 81 MG; Start 10/02/18 at 09:00 Atorvastatin Calcium (Lipitor) 20 mg QHS PO Last administered on 10/04/18 21:17; Admin Dose 20 MG; Start 10/02/18 at 21:00 Buspirone HCl (Buspar) 5 mg BID PO Last administered on 10/05/18 08:10; Admin Dose 5 MG; Start 10/02/18 at 09:00 Docusate Sodium (Colace) 100 mg BID PO Last administered on 10/04/18 21:17; Admin Dose 100 MG; Start 10/02/18 at 09:00 Gabapentin (Neurontin) 300 mg TID PO Last administered on 10/05/18 12:51; Admin Dose 300 MG; Start 10/02/18 at 09:00 Lisinopril (Zestril) 10 mg DAILY PO Last administered on 10/05/18 08:13; Admin Dose 10 MG; Start 10/02/18 at 09:00 Ondansetron HCl (Zofran Inj) 4 mg Q6H PRN IV NAUSEA AND/OR VOMITING; Start 10/02/18 at 02:00 Albuterol (Proventil 0.083% (Neb)) 2.5 mg Q2H RESP THERAPY PRN NEB SHORTNESS OF BREATH; Start 10/02/18 at 02:00 Acetaminophen (Tylenol Liquid) 650 mg Q6H PRN PO PAIN LEVEL 1-3 OR FEVER Last administered on 10/05/18 01:38; Admin Dose 650 MG; Start 10/02/18 at 02:00 Menthol/Methyl Salicylate (Memo Erazo) 1 applic TID PRN TOP pain; Start 10/02/18 at 06:30 Tramadol HCl (Ultram) 50 mg Q6H PRN PO MODERATE PAIN LEVEL 4-6 Last administered on 10/04/18 21:18; Admin Dose 50 MG; Start 10/02/18 at 11:00 Potassium Chloride 50 ml @ 50 mls/hr K PROTOCOL PRN IVPB PENDING LAB VALUE Last administered on 10/03/18 09:55; Admin Dose 50 MLS/HR; Start 10/02/18 at 11:30 Potassium Chloride (Potassium Chloride Pwd/Soln) 20 meq PER PROTOCOL PRN PO POTASSIUM REPLACEMENT PROTOCOL; Start 10/02/18 at 11:30 Potassium Chloride (Potassium Chloride Pwd/Soln) 30 meq PER PROTOCOL PRN PO POTASSIUM REPLACEMENT PROTOCOL; Start 10/02/18 at 11:30 Potassium Chloride (Potassium Chloride Pwd/Soln) 40 meq PER PROTOCOL PRN PO POTASSIUM REPLACEMENT PROTOCOL; Start 10/02/18 at 11:30 Diagnostic Test (Pha) (Accu-Chek) 1 ea 02 XX Last administered on 10/03/18at 02:34; Admin Dose 1 EA; Start 10/03/18 at 02:00 Insulin Aspart (Novolog Insulin Pen) NOVOLOG *MILD* ALGORITHM WITH MEALS BEDTIME SC Last administered on 10/05/18 12:52; Admin Dose 2 UNIT; Start 10/02/18 at 17:35 Miscellaneous Information 1 ea NOTE XX ; Start 10/02/18 at 22:00 Glucose (Glutose) 15 gm Q15M PRN PO DECREASED GLUCOSE; Start 10/02/18 at 22:00 Glucose (Glutose) 22.5 gm Q15M PRN PO DECREASED GLUCOSE; Start 10/02/18 at 22:00 Dextrose (D50w Syringe) 25 ml Q15M PRN IV DECREASED GLUCOSE Last administered on 10/03/18at 02:31; Admin Dose 25 ML; Start 10/02/18 at 22:00 Dextrose (D50w Syringe) 50 ml Q15M PRN IV DECREASED GLUCOSE; Start 10/02/18 at 22:00 Glucagon (Glucagen) 1 mg Q15M PRN IM DECREASED GLUCOSE; Start 10/02/18 at 22:00 Glucose (Glutose) 15 gm Q15M PRN BUCCAL DECREASED GLUCOSE; Start 10/02/18 at 22:00 Diagnostic Test (Pha) (Accu-Chek) 1 ea AC MEALS AND BEDTIME XX Last administered on 10/04/18at 21:00; Admin Dose 1 EA; Start 10/03/18 at 17:05 Insulin Glargine (Lantus) 18 units DAILY@0800 SC Last administered on 10/05/18 08:19; Admin Dose 18 UNITS; Start 10/04/18 at 12:00 Insulin Aspart (Novolog Insulin Pen) 6 unit WITH MEALS SC Last administered on 10/05/18 12:53; Admin Dose 6 UNIT; Start 10/04/18 at 17:55 Pantoprazole (Protonix Iv) 40 mg DAILY@06 IV Last administered on 2/22/19at 05:55; Admin Dose 40 MG; Start 10/05/18 at 06:00 Calcium Carbonate (Tums) 500 mg Q4 PRN PO epigastric pain Last administered on 10/05/18at 01:34; Admin Dose 500 MG; Start 10/05/18 at 01:30 Potassium Chloride 100 ml @ 50 mls/hr Q2H IVPB Last administered on 10/05/18at 13:32; Admin Dose 50 MLS/HR; Start 10/05/18 at 09:00; Stop 10/05/18 at 14:59 HERRERA SALDAÑA NP Oct 05, 2018 14:59
--- NOTE | 2018-10-05 15:25 | CONS ---
Assessment/Plan Assessment/Plan Hospital Course (Demo Recall) #Anemia -pt has a low iron saturation in the setting of a high ferritin and low TIBC. This is most consistent with anemia of chronic inflammation as well as a component of iron deficiency -pt definitely needs GI eval for iron deficiency anemia -his chronic inflammation is likely from his uncontrolled diabetes -will start IV iron -ok to transfuse at this time -mildly high LDH with normal haptoglobin rules out hemolysis. If patient did have hemolysis, his haptoglobin would be undetectable #DM -continue insulin per primary team #Bipolar -continue mood stabilizers Consultation Date/Type/Reason Admit Date/Time 10/02/18 0100 Date/Time of Note DATE: 10/05/18 TIME: 15:25 Hx of Present Illness 63 yo M with PMH bipolar disorder, homelessness, substance abuse, and poorly controlled diabetes mellitus presented to ED with multiple complaints including chills, nausea, polydipsia, polyuria, abdominal pain, generalized weakness, and shaking. Pt had been off his diabetic medications for months. Pt is currently on insulin but has extremely high blood sugars. Pt was also noted to be anemic with a Hg 7.3. Anemia panel revealed a low iron saturation of 7%, markedly elevated ferritin, mildly elevated LDH and elevated haptoglobin. Pt is scheduled for EGD and colonoscopy but refuses to comply with the colon prep. Pt is currently extremely upset that he is not getting what he wants to eat. Constitutional: other (agitated ) Eyes: no complaints ENT: no complaints Respiratory: shortness of breath Cardiovascular: chest pain Gastrointestinal: nausea Genitourinary: no complaints Musculoskeletal: back pain, bone/joint pain Skin: no complaints Past Medical History Medical History: diabetes, other (bipolar) Home Meds Active Scripts Metformin Hcl (Glucophage) 500 Mg Tablet, 500 MG PO WITH BREAKFAST DINNE, #30 TAB Prov:NIK CHANDRA MD 08/05/18 Insulin Lispro (Humalog Kwikpen U-100) 100 Unit/1 Ml Insuln.pen, 15 UNIT SQ AC A for 30 Days, EA Prov:NIK CHANDRA MD 08/05/18 Insulin Regular, Human (Humulin R) 100 Unit/1 Ml Vial, 5 UNIT IJ TID for 30 Days, VIAL Prov:NIK CHANDRA MD 08/05/18 Insulin Lispro (Humalog Kwikpen U-100) 100 Unit/1 Ml Insuln.pen, 32 UNIT SQ Daily at Bedtime for 30 Days, #30 Prov:NIK CHANDRA MD 08/05/18 Reported Medications Buspirone Hcl* (Buspirone Hcl*) 10 Mg Tab, 5 MG PO BID, TAB 08/05/18 Lisinopril* (Lisinopril*) 10 Mg Tablet, 10 MG PO DAILY, #30 TAB 08/05/18 Insulin Glargine,Hum.rec.anlog (Basaglar Kwikpen U-100) 100 Unit/1 Ml Insuln.pen, 32 UNIT SC QHS, EA 08/05/18 Insulin Regular, Human (Humulin R) 100 Unit/1 Ml Vial, 5 UNIT IJ TID, VIAL 08/05/18 Insulin Lispro (Humalog Kwikpen U-100) 100 Unit/1 Ml Insuln.pen, 15 UNIT SQ AC A, EA 08/05/18 Atorvastatin Calcium* (Atorvastatin Calcium*) 20 Mg Tablet, 20 MG PO QHS, #30 TAB 08/05/18 Gabapentin* (Gabapentin*) 300 Mg Capsule, 300 MG PO TID, #90 CAP 08/05/18 Metformin Hcl* (Metformin Hcl*) 500 Mg Tablet, 500 MG PO WITH BREAKFAST DINNE, #60 TAB 08/05/18 Docusate Sodium* (Dok*) 100 Mg Tablet, 100 MG PO BID, #60 CAP 08/05/18 Ferrous Sulfate* (Ferrous Sulfate*) 325 Mg Tabec, 325 MG PO BID, TAB 08/05/18 Aspirin (Low Dose Aspirin) 81 Mg Tablet.dr, 81 MG PO DAILY, #30 TAB 08/05/18 Medications Current Medications Aspirin (Halfprin) 81 mg DAILY PO Last administered on 10/05/18at 08:13; Admin Dose 81 MG; Start 10/02/18 at 09:00 Atorvastatin Calcium (Lipitor) 20 mg QHS PO Last administered on 10/04/18at 21:17; Admin Dose 20 MG; Start 10/02/18 at 21:00 Buspirone HCl (Buspar) 5 mg BID PO Last administered on 10/05/18at 08:10; Admin Dose 5 MG; Start 10/02/18 at 09:00 Docusate Sodium (Colace) 100 mg BID PO Last administered on 10/04/18 21:17; Admin Dose 100 MG; Start 10/02/18 at 09:00 Gabapentin (Neurontin) 300 mg TID PO Last administered on 10/05/18 12:51; Admin Dose 300 MG; Start 10/02/18 at 09:00 Lisinopril (Zestril) 10 mg DAILY PO Last administered on 10/05/18 08:13; Admin Dose 10 MG; Start 10/02/18 at 09:00 Ondansetron HCl (Zofran Inj) 4 mg Q6H PRN IV NAUSEA AND/OR VOMITING; Start 10/02/18 at 02:00 Albuterol (Proventil 0.083% (Neb)) 2.5 mg Q2H RESP THERAPY PRN NEB SHORTNESS OF BREATH; Start 10/02/18 at 02:00 Acetaminophen (Tylenol Liquid) 650 mg Q6H PRN PO PAIN LEVEL 1-3 OR FEVER Last administered on 10/05/18 01:38; Admin Dose 650 MG; Start 10/02/18 at 02:00 Menthol/Methyl Salicylate (Memo Erazo) 1 applic TID PRN TOP pain; Start 10/02/18 at 06:30 Tramadol HCl (Ultram) 50 mg Q6H PRN PO MODERATE PAIN LEVEL 4-6 Last administered on 10/04/18 21:18; Admin Dose 50 MG; Start 10/02/18 at 11:00 Potassium Chloride 50 ml @ 50 mls/hr K PROTOCOL PRN IVPB PENDING LAB VALUE Last administered on 10/03/18 09:55; Admin Dose 50 MLS/HR; Start 10/02/18 at 11:30 Potassium Chloride (Potassium Chloride Pwd/Soln) 20 meq PER PROTOCOL PRN PO POTASSIUM REPLACEMENT PROTOCOL; Start 10/02/18 at 11:30 Potassium Chloride (Potassium Chloride Pwd/Soln) 30 meq PER PROTOCOL PRN PO POTASSIUM REPLACEMENT PROTOCOL; Start 10/02/18 at 11:30 Potassium Chloride (Potassium Chloride Pwd/Soln) 40 meq PER PROTOCOL PRN PO POTASSIUM REPLACEMENT PROTOCOL; Start 10/02/18 at 11:30 Diagnostic Test (Pha) (Accu-Chek) 1 ea 02 XX Last administered on 10/03/18 02:34; Admin Dose 1 EA; Start 10/03/18 at 02:00 Insulin Aspart (Novolog Insulin Pen) NOVOLOG *MILD* ALGORITHM WITH MEALS BEDTIME SC Last administered on 10/05/18at 12:52; Admin Dose 2 UNIT; Start 10/02/18 at 17:35 Miscellaneous Information 1 ea NOTE XX ; Start 10/02/18 at 22:00 Glucose (Glutose) 15 gm Q15M PRN PO DECREASED GLUCOSE; Start 10/02/18 at 22:00 Glucose (Glutose) 22.5 gm Q15M PRN PO DECREASED GLUCOSE; Start 10/02/18 at 22:00 Dextrose (D50w Syringe) 25 ml Q15M PRN IV DECREASED GLUCOSE Last administered on 10/03/18at 02:31; Admin Dose 25 ML; Start 10/02/18 at 22:00 Dextrose (D50w Syringe) 50 ml Q15M PRN IV DECREASED GLUCOSE; Start 10/02/18 at 22:00 Glucagon (Glucagen) 1 mg Q15M PRN IM DECREASED GLUCOSE; Start 10/02/18 at 22:00 Glucose (Glutose) 15 gm Q15M PRN BUCCAL DECREASED GLUCOSE; Start 10/02/18 at 22 :00 Diagnostic Test (Pha) (Accu-Chek) 1 ea AC MEALS AND BEDTIME XX Last administered on 10/04/18at 21:00; Admin Dose 1 EA; Start 10/03/18 at 17:05 Insulin Glargine (Lantus) 18 units DAILY@0800 SC Last administered on 10/05/18at 08:19; Admin Dose 18 UNITS; Start 10/04/18 at 12:00 Insulin Aspart (Novolog Insulin Pen) 6 unit WITH MEALS SC Last administered on 10/05/18at 12:53; Admin Dose 6 UNIT; Start 10/04/18 at 17:55 Pantoprazole (Protonix Iv) 40 mg DAILY@06 IV Last administered on 10/05/18at 0 5:55; Admin Dose 40 MG; Start 10/05/18 at 06:00 Calcium Carbonate (Tums) 500 mg Q4 PRN PO epigastric pain Last administered on 10/05/18at 01:34; Admin Dose 500 MG; Start 10/05/18 at 01:30 Magnesium Sulfate/ Dextrose 100 ml @ 100 mls/hr ONCE ONCE IVPB ; Start 10/05/18 at 16:00; Stop 10/05/18 at 16:59 Ferric Sodium Gluconate Complex 125 mg/Sodium Chloride 110 ml @ 110 mls/hr DAILY@1300 IVPB ; Start 10/06/18 at 13:00; Stop 10/10/18 at 13:59; Status UNV Allergies: Coded Allergies: No Known Drug Allergies (Verified Allergy, Unknown, 10/02/18) Past Surgical History Past Surgical Hx: no surgical history Social History Smoking Status: Current every day smoker Drug Use: other Exam/Review of Systems Exam Vitals Vital Signs Date Temp Pulse Resp B/P (MAP) Pulse Ox O2 O2 Flow FiO2 Time Delivery Rate 10/05/18 98.1 89 18 118/58 98 Room Air 08:00 (78) 10/02/18 2.0 08:00 Intake and Output 10/04/18 10/04/18 10/05/18 1515:00 23:00 07:00 IntakeIntake Total 235 ml 300 ml OutputOutput Total 800 ml BalanceBalance 235 ml -500 ml Constitutional: alert, oriented, distress, other (agitated) Psych: no complaints Head: normocephalic Eyes: nl conjunctiva ENMT: nl external ears & nose Neck: supple Respiratory: clear to auscultation Cardiovascular: regular rate and rhythm Gastrointestinal: soft Musculoskeletal: nl extremities to inspection Results Result Diagram: 10/05/18 0534 10/05/18 0534 Results 24hrs Laboratory Tests Test 10/04/18 17:16 10/04/18 20:28 10/05/18 05:34 10/05/18 08:05 Bedside Glucose 327 H 169 263 H White Blood Count 7.7 # Red Blood Count 3.07 L Hemoglobin 7.3 L Hematocrit 23.2 L Mean Corpuscular 75.6 L Volume Mean Corpuscular 23.8 L Hemoglobin Mean Corpuscular 31.5 L Hemoglobin Concent Red Cell 14.0 Distribution Width Platelet Count 101 L Mean Platelet Volume 10.5 H Immature 0.800 H Granulocytes % Neutrophils % Segmented 64 Neutrophils % (Manual) Band Neutrophils % 10 H (Manual) Lymphocytes % Lymphocytes % 23 (Manual) Monocytes % Monocytes % (Manual) 3 Eosinophils % Basophils % Nucleated Red Blood 0.0 Cells % Immature 0.060 H Granulocytes # Neutrophils # Neutrophils # 5.0 (Manual) Band Neutrophils # 0.7 H Lymphocytes (Manual) 1.7 Lymphocytes # Monocytes # Monocytes # (Manual) 0.2 L Eosinophils # Basophils # Nucleated Red Blood Cells # Platelet Estimate DECREASED Polychromasia 1+ Anisocytosis 1+ Microcytosis 1+ Sodium Level 134 L Potassium Level 2.7 *L Chloride Level 103 Carbon Dioxide Level 28 Anion Gap 3 L Blood Urea Nitrogen 20 Creatinine 0.55 L Est Glomerular > 60 Filtrat Rate mL/min Glucose Level 219 # Calcium Level 8.1 L Phosphorus Level 2.2 L Magnesium Level 1.8 Test 10/05/18 12:47 Bedside Glucose 189 Medications Medication Current Medications Aspirin (Halfprin) 81 mg DAILY PO Last administered on 10/05/18 08:13; Admin Dose 81 MG; Start 10/02/18 at 09:00 Atorvastatin Calcium (Lipitor) 20 mg QHS PO Last administered on 10/04/18 21:17; Admin Dose 20 MG; Start 10/02/18 at 21:00 Buspirone HCl (Buspar) 5 mg BID PO Last administered on 10/05/18 08:10; Admin Dose 5 MG; Start 10/02/18 at 09:00 Docusate Sodium (Colace) 100 mg BID PO Last administered on 10/04/18 21:17; Admin Dose 100 MG; Start 10/02/18 at 09:00 Gabapentin (Neurontin) 300 mg TID PO Last administered on 10/05/18 12:51; Admin Dose 300 MG; Start 10/02/18 at 09:00 Lisinopril (Zestril) 10 mg DAILY PO Last administered on 10/05/18 08:13; Admin Dose 10 MG; Start 10/02/18 at 09:00 Ondansetron HCl (Zofran Inj) 4 mg Q6H PRN IV NAUSEA AND/OR VOMITING; Start 10/02/18 at 02:00 Albuterol (Proventil 0.083% (Neb)) 2.5 mg Q2H RESP THERAPY PRN NEB SHORTNESS OF BREATH; Start 10/02/18 at 02:00 Acetaminophen (Tylenol Liquid) 650 mg Q6H PRN PO PAIN LEVEL 1-3 OR FEVER Last administered on 10/05/18 01:38; Admin Dose 650 MG; Start 10/02/18 at 02:00 Menthol/Methyl Salicylate (Memo Erazo) 1 applic TID PRN TOP pain; Start 10/02/18 at 06:30 Tramadol HCl (Ultram) 50 mg Q6H PRN PO MODERATE PAIN LEVEL 4-6 Last administered on 10/04/18at 21:18; Admin Dose 50 MG; Start 10/02/18 at 11:00 Potassium Chloride 50 ml @ 50 mls/hr K PROTOCOL PRN IVPB PENDING LAB VALUE Last administered on 10/03/18at 09:55; Admin Dose 50 MLS/HR; Start 10/02/18 at 11:30 Potassium Chloride (Potassium Chloride Pwd/Soln) 20 meq PER PROTOCOL PRN PO POTASSIUM REPLACEMENT PROTOCOL; Start 10/02/18 at 11:30 Potassium Chloride (Potassium Chloride Pwd/Soln) 30 meq PER PROTOCOL PRN PO POTASSIUM REPLACEMENT PROTOCOL; Start 10/02/18 at 11:30 Potassium Chloride (Potassium Chloride Pwd/Soln) 40 meq PER PROTOCOL PRN PO POTASSIUM REPLACEMENT PROTOCOL; Start 10/02/18 at 11:30 Diagnostic Test (Pha) (Accu-Chek) 1 ea 02 XX Last administered on 10/03/18at 02:34; Admin Dose 1 EA; Start 10/03/18 at 02:00 Insulin Aspart (Novolog Insulin Pen) NOVOLOG *MILD* ALGORITHM WITH MEALS BEDTIME SC Last administered on 10/05/18at 12:52; Admin Dose 2 UNIT; Start 10/02/18 at 17:35 Miscellaneous Information 1 ea NOTE XX ; Start 10/02/18 at 22:00 Glucose (Glutose) 15 gm Q15M PRN PO DECREASED GLUCOSE; Start 10/02/18 at 22:00 Glucose (Glutose) 22.5 gm Q15M PRN PO DECREASED GLUCOSE; Start 10/02/18 at 22:00 Dextrose (D50w Syringe) 25 ml Q15M PRN IV DECREASED GLUCOSE Last administered on 10/03/18at 02:31; Admin Dose 25 ML; Start 10/02/18 at 22:00 Dextrose (D50w Syringe) 50 ml Q15M PRN IV DECREASED GLUCOSE; Start 10/02/18 at 22:00 Glucagon (Glucagen) 1 mg Q15M PRN IM DECREASED GLUCOSE; Start 10/02/18 at 22:00 Glucose (Glutose) 15 gm Q15M PRN BUCCAL DECREASED GLUCOSE; Start 10/02/18 at 22:00 Diagnostic Test (Pha) (Accu-Chek) 1 ea AC MEALS AND BEDTIME XX Last administered on 10/04/18at 21:00; Admin Dose 1 EA; Start 10/03/18 at 17:05 Insulin Glargine (Lantus) 18 units DAILY@0800 SC Last administered on 10/05/18at 08:19; Admin Dose 18 UNITS; Start 10/04/18 at 12:00 Insulin Aspart (Novolog Insulin Pen) 6 unit WITH MEALS SC Last administered on 10/05/18at 12:53; Admin Dose 6 UNIT; Start 10/04/18 at 17:55 Pantoprazole (Protonix Iv) 40 mg DAILY@06 IV Last administered on 10/05/18at 05:55; Admin Dose 40 MG; Start 10/05/18 at 06:00 Calcium Carbonate (Tums) 500 mg Q4 PRN PO epigastric pain Last administered on 10/05/18at 01:34; Admin Dose 500 MG; Start 10/05/18 at 01:30 Magnesium Sulfate/ Dextrose 100 ml @ 100 mls/hr ONCE ONCE IVPB ; Start 10/05/18 at 16:00; Stop 10/05/18 at 16:59 Ferric Sodium Gluconate Complex 125 mg/Sodium Chloride 110 ml @ 110 mls/hr DAILY@1300 IVPB ; Start 10/06/18 at 13:00; Stop 10/10/18 at 13:59; Status MAYA MACARIO M.D. Oct 05, 2018 15:25
[2018-10-05] MEDS ORDERED: POTASSIUM CHLORIDE (SR) 20 MEQ TAB PO STA (15:34)
[2018-10-05] MEDS ORDERED: MAGNESIUM SULFATE 1 GM/D5W 100 ML IVPB ONE (16:00)
[2018-10-05 20:15] VITALS: BP 143/79; PULSE 100; RESP 16
[2018-10-05] MEDS: SOD FERRIC GLUC COMPLX 125 MG in SOD CHLORIDE 0.9% 100 ML IVPB SCH (20:17)
[2018-10-05] MEDS: ATORVASTATIN 20 MG TAB PO SCH (20:52)
[2018-10-06] MEDS: ACCU-CHEK XX SCH ×5 (02:00→21:08)
[2018-10-06] MEDS: PANTOPRAZOLE (EC) 40 MG TAB PO SCH (06:08)
[2018-10-06 07:25] VITALS: BP 129/76; PULSE 106; RESP 20
[2018-10-06] MEDS ORDERED: SOD CHLORIDE 0.9% 250 ML IV* ONE (07:44)
[2018-10-06] MEDS ORDERED: POTASSIUM CHLORIDE (SR) 20 MEQ TAB PO STA (07:44)
[2018-10-06] MEDS ORDERED: MAGNESIUM SULFATE 2 GM/50 ML 50 ML IVPB ONE (08:00)
[2018-10-06] MEDS: GABAPENTIN 300 MG CAP PO SCH ×3 (08:28→21:03)
[2018-10-06] MEDS: DOCUSATE SODIUM 100 MG CAP PO SCH ×2 (08:28→21:02)
[2018-10-06] MEDS: BUSPIRONE 5 MG TAB PO SCH ×2 (08:28→21:02)
[2018-10-06] MEDS: ASPIRIN (EC) 81 MG TAB PO SCH (08:28)
[2018-10-06] MEDS: LISINOPRIL 10 MG TAB PO SCH (08:29)
[2018-10-06] MEDS: INSULIN ASPART [NOVOLOG] 3 ML PEN SC SCH ×7 (08:31→20:58)
[2018-10-06] MEDS: INSULIN GLARGINE [LANTus] (100 UNITS/ML) SYG SC SCH (08:33)
[2018-10-06] MEDS: traMADol 50 MG TAB PO PRN ×2 (08:39→21:03)
[2018-10-06] MEDS ORDERED: INSU100I33 SC (12:56)
[2018-10-06] MEDS ORDERED: INSU100I12 SQ (12:59)
--- NOTE | 2018-10-06 13:25 | PN ---
Date/Time of Note Date/Time of Note DATE: 10/06/18 TIME: 13:20 Assessment/Plan VTE Prophylaxis Risk score (from Ns)>0 risk: 4 [place] [facility] [place] contraindicated: other Pharmacological prophylaxis: NA/contraindicated Pharm contraindication: anticoag not tolerated Lines/Catheters IV [facility] [place] Urinary Cath still in place: No Assessment/Plan Hospital Course SUBJECTIVE: The patient keeps asking for more food. The patient's blood sugars are uncontrolled because of the same. OBJECTIVE: Physical Exam General: Adequately build 62 year-old male lying in bed in no apparent distress. HEENT: Normocephalic, atraumatic. Eyes: Anicteric sclerae, conjunctivae clear. ENT: Nasal septum midline, oral mucosa moist. Neck supple, no JVD noticed. Respiratory: Bilaterally clear breath sounds. No use of accessory muscles of respiration. No adventitious breath sounds. Cardiovascular: S1, S2 heard. Regular rate and rhythm. Abdomen: Soft, nontender, and nondistended. Bowel sounds positive in all 4 quadrants. Genitourinary: Deferred. Extremities: No cyanosis, no clubbing, no edema. Peripheral pulses palpable. Neurologic: The patient is awake, alert, and oriented. Vitals & Labs per chart. ASSESSMENT & PLAN 63-year-old male with past medical history of diabetes mellitus, bipolar disorder, chronic back pain, and homelessness who came to the emergency room with multiple complaints. The patient was noticed to have underlying hyperglycemia. The patient did not have any evidence of DKA. The patient was admitted to inpatient setting for further treatment and evaluation. 1. -Hyperglycemia. -S/P insulin drip. -No evidence of any DKA. -Continue sliding scale insulin along with pre-meal insulin basal insulin. 2. Diabetes mellitus. -Uncontrolled. -Hemoglobin A1C >14sent out. -Continue SSI along with pre-meal insulin and basal insulin. 3. Bipolar disorder. -Continue mood stabilizers. 4. Hyponatremia. -Etiology could be multifactorial including underlying hyperglycemia. -Correct hyperglycemia. -Resolved. 5. Essential hypertension. -Continue antihypertensives. 6. Dyslipidemia. -Continue statins. 7. Transaminitis. -Etiology unclear. -Hepatitis panel negative. 8. Anemia. -Microcytic and hypochromic. -Stool OB X1 positive. Repeat stool for OB negative. -Elevated LDH with CBC from admission showing nucleated RBC, concerning for hemolytic anemia. Obtain hematology consult. -Patient was noncompliant with status post hematology bowel preparation. -Status post hematology evaluation who conveyed that the patient's anemia is secondary to underlying iron deficiency. -Transfuse 1 unit of PRBC today 9. Lactic acidosis. -Etiology unclear. -The patient was initially on antimicrobials. -Antimicrobials discontinued since gutiérrez cultures are negative and the patient remains afebrile. 10. Homelessness. 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 11. Severe protein calorie malnutrition. -Podiatry consult. -Dietary supplements. 12. Non-compliance with medications and diet. -Reinforced importance of compliance.. 13. Fluids, electrolytes, and nutrition. -Carbohydrate controlled diet. 14. DVT prophylaxis. -SQ Lovenox. -Held because of worsening anemia. 15. Plan. -Correct electrolytes. -Transfuse 1 unit of PRBC today. -DC the patient after blood transfusion if arrangements can be made by social sciences professor since there is no further workup necessary and the patient is very noncompliant and noncooperative. The patient was seen in collaboration with Dr. Arriaga. Result Diagram: 10/06/18 0557 10/06/18 0557 Results 24hrs Laboratory Tests Test 10/05/18 16:30 10/05/18 17:14 10/05/18 20:48 10/06/18 05:57 Potassium Level 3.0 L 3.2 L Bedside Glucose 94 239 H White Blood Count 7.6 Red Blood Count 3.10 L Hemoglobin 7.1 L Hematocrit 23.0 L Mean Corpuscular 74.2 L Volume Mean Corpuscular 22.9 L Hemoglobin Mean Corpuscular 30.9 L Hemoglobin Concent Red Cell 14.2 Distribution Width Platelet Count 95 L Mean Platelet Volume 10.0 Immature 2.800 H Granulocytes % Neutrophils % Segmented 78 H Neutrophils % (Manual) Band Neutrophils % 1 (Manual) Lymphocytes % Lymphocytes % 14 L (Manual) Monocytes % Monocytes % (Manual) 6 Eosinophils % Basophils % Metamyelocytes % 1 H (manual) Nucleated Red Blood 0.0 Cells % Immature 0.210 H Granulocytes # Neutrophils # Neutrophils # 5.9 (Manual) Band Neutrophils # 0.0 Lymphocytes (Manual) 1.0 Lymphocytes # Monocytes # Monocytes # (Manual) 0.4 Eosinophils # Basophils # Metamyelocytes # 0.0 Nucleated Red Blood Cells # Toxic Granulation 1+ Dohle Bodies 1+ Platelet Estimate DECREASED Giant Platelets 1 H Polychromasia 1+ Hypochromasia 2+ Poikilocytosis 1+ Anisocytosis 2+ Microcytosis 2+ Ovalocytes 1+ Sodium Level 135 Chloride Level 103 Carbon Dioxide Level 27 Anion Gap 5 Blood Urea Nitrogen 13 Creatinine 0.40 L Est Glomerular > 60 Filtrat Rate mL/min Glucose Level 182 Calcium Level 8.2 L Phosphorus Level 2.0 L Magnesium Level 1.6 L Test 10/06/18 08:27 10/06/18 12:19 Bedside Glucose 265 H 318 H Exam/Review of Systems Exam Vitals Vital Signs Date Temp Pulse Resp B/P (MAP) Pulse Ox O2 O2 Flow FiO2 Time Delivery Rate 10/06/18 98.2 106 20 129/76 94 Room Air 07:25 (93) 10/02/18 2.0 08:00 Intake and Output 10/05/18 10/05/18 10/06/18 1515:00 23:00 07:00 IntakeIntake Total 1615 ml 780 ml 110 ml OutputOutput Total 750 ml BalanceBalance 1615 ml 30 ml 110 ml Results Results 24hrs Laboratory Tests Test 10/05/18 16:30 10/05/18 17:14 10/05/18 20:48 10/06/18 05:57 Potassium Level 3.0 L 3.2 L Bedside Glucose 94 239 H White Blood Count 7.6 Red Blood Count 3.10 L Hemoglobin 7.1 L Hematocrit 23.0 L Mean Corpuscular 74.2 L Volume Mean Corpuscular 22.9 L Hemoglobin Mean Corpuscular 30.9 L Hemoglobin Concent Red Cell 14.2 Distribution Width Platelet Count 95 L Mean Platelet Volume 10.0 Immature 2.800 H Granulocytes % Neutrophils % Segmented 78 H Neutrophils % (Manual) Band Neutrophils % 1 (Manual) Lymphocytes % Lymphocytes % 14 L (Manual) Monocytes % Monocytes % (Manual) 6 Eosinophils % Basophils % Metamyelocytes % 1 H (manual) Nucleated Red Blood 0.0 Cells % Immature 0.210 H Granulocytes # Neutrophils # Neutrophils # 5.9 (Manual) Band Neutrophils # 0.0 Lymphocytes (Manual) 1.0 Lymphocytes # Monocytes # Monocytes # (Manual) 0.4 Eosinophils # Basophils # Metamyelocytes # 0.0 Nucleated Red Blood Cells # Toxic Granulation 1+ Dohle Bodies 1+ Platelet Estimate DECREASED Giant Platelets 1 H Polychromasia 1+ Hypochromasia 2+ Poikilocytosis 1+ Anisocytosis 2+ Microcytosis 2+ Ovalocytes 1+ Sodium Level 135 Chloride Level 103 Carbon Dioxide Level 27 Anion Gap 5 Blood Urea Nitrogen 13 Creatinine 0.40 L Est Glomerular > 60 Filtrat Rate mL/min Glucose Level 182 Calcium Level 8.2 L Phosphorus Level 2.0 L Magnesium Level 1.6 L Test 10/06/18 08:27 10/06/18 12:19 Bedside Glucose 265 H 318 H Medications Medication Current Medications Aspirin (Halfprin) 81 mg DAILY PO Last administered on 10/06/18 08:28; Admin Dose 81 MG; Start 10/02/18 at 09:00 Atorvastatin Calcium (Lipitor) 20 mg QHS PO Last administered on 10/05/18 20:52; Admin Dose 20 MG; Start 10/02/18 at 21:00 Buspirone HCl (Buspar) 5 mg BID PO Last administered on 10/06/18 08:28; Admin Dose 5 MG; Start 10/02/18 at 09:00 Docusate Sodium (Colace) 100 mg BID PO Last administered on 10/06/18 08:28; Admin Dose 100 MG; Start 10/02/18 at 09:00 Gabapentin (Neurontin) 300 mg TID PO Last administered on 10/06/18 12:15; Admin Dose 300 MG; Start 10/02/18 at 09:00 Lisinopril (Zestril) 10 mg DAILY PO Last administered on 10/06/18 08:29; Admin Dose 10 MG; Start 10/02/18 at 09:00 Ondansetron HCl (Zofran Inj) 4 mg Q6H PRN IV NAUSEA AND/OR VOMITING; Start 10/02/18 at 02:00 Albuterol (Proventil 0.083% (Neb)) 2.5 mg Q2H RESP THERAPY PRN NEB SHORTNESS OF BREATH; Start 10/02/18 at 02:00 Acetaminophen (Tylenol Liquid) 650 mg Q6H PRN PO PAIN LEVEL 1-3 OR FEVER Last administered on 10/05/18 01:38; Admin Dose 650 MG; Start 10/02/18 at 02:00 Menthol/Methyl Salicylate (Memo Erazo) 1 applic TID PRN TOP pain; Start 10/02/18 at 06:30 Tramadol HCl (Ultram) 50 mg Q6H PRN PO MODERATE PAIN LEVEL 4-6 Last administered on 10/06/18at 08:39; Admin Dose 50 MG; Start 10/02/18 at 11:00 Potassium Chloride 50 ml @ 50 mls/hr K PROTOCOL PRN IVPB PENDING LAB VALUE Last administered on 10/03/18at 09:55; Admin Dose 50 MLS/HR; Start 10/02/18 at 11:30 Potassium Chloride (Potassium Chloride Pwd/Soln) 20 meq PER PROTOCOL PRN PO POTASSIUM REPLACEMENT PROTOCOL; Start 10/02/18 at 11:30 Potassium Chloride (Potassium Chloride Pwd/Soln) 30 meq PER PROTOCOL PRN PO POTASSIUM REPLACEMENT PROTOCOL; Start 10/02/18 at 11:30 Potassium Chloride (Potassium Chloride Pwd/Soln) 40 meq PER PROTOCOL PRN PO POTASSIUM REPLACEMENT PROTOCOL; Start 10/02/18 at 11:30 Diagnostic Test (Pha) (Accu-Chek) 1 ea 02 XX Last administered on 10/03/18at 02:34; Admin Dose 1 EA; Start 10/03/18 at 02:00 Insulin Aspart (Novolog Insulin Pen) NOVOLOG *MILD* ALGORITHM WITH MEALS BEDTIME SC Last administered on 10/06/18at 12:21; Admin Dose 5 UNIT; Start 10/02/18 at 17:35 Miscellaneous Information 1 ea NOTE XX ; Start 10/02/18 at 22:00 Glucose (Glutose) 15 gm Q15M PRN PO DECREASED GLUCOSE; Start 10/02/18 at 22:00 Glucose (Glutose) 22.5 gm Q15M PRN PO DECREASED GLUCOSE; Start 10/02/18 at 22:00 Dextrose (D50w Syringe) 25 ml Q15M PRN IV DECREASED GLUCOSE Last administered on 10/03/18at 02:31; Admin Dose 25 ML; Start 10/02/18 at 22:00 Dextrose (D50w Syringe) 50 ml Q15M PRN IV DECREASED GLUCOSE; Start 10/02/18 at 22:00 Glucagon (Glucagen) 1 mg Q15M PRN IM DECREASED GLUCOSE; Start 10/02/18 at 22:00 Glucose (Glutose) 15 gm Q15M PRN BUCCAL DECREASED GLUCOSE; Start 10/02/18 at 22 :00 Diagnostic Test (Pha) (Accu-Chek) 1 ea AC MEALS AND BEDTIME XX Last administered on 10/05/18at 20:56; Admin Dose 1 EA; Start 10/03/18 at 17:05 Insulin Glargine (Lantus) 18 units DAILY@0800 SC Last administered on 10/06/18 08:33; Admin Dose 18 UNITS; Start 10/04/18 at 12:00 Insulin Aspart (Novolog Insulin Pen) 6 unit WITH MEALS SC Last administered on 10/06/18 12:21; Admin Dose 6 UNIT; Start 10/04/18 at 17:55 Calcium Carbonate (Tums) 500 mg Q4 PRN PO epigastric pain Last administered on 10/05/18 01:34; Admin Dose 500 MG; Start 10/05/18 at 01:30 Ferric Sodium Gluconate Complex 125 mg/Sodium Chloride 110 ml @ 110 mls/hr DAILY@1300 IVPB Last administered on 10/05/18at 20:17; Admin Dose 110 MLS/HR; Start 10/05/18 at 17:00; Stop 10/09/18 at 13:59 Pantoprazole (Protonix Tab) 40 mg DAILY@06 PO Last administered on 10/06/18at 06:08; Admin Dose 40 MG; Start 10/06/18 at 06:00 HERRERA SALDAÑA NP Oct 06, 2018 13:25
[2018-10-06 14:43] VITALS: BP 125/67; PULSE 92; RESP 18
--- NOTE | 2018-10-06 14:58 | PN ---
Date/Time of Note Date/Time of Note DATE: 10/06/18 TIME: 14:41 Assessment/Plan VTE Prophylaxis Risk score (from [facility] [place])>0 risk: 4 SCD applied (from [facility] [place]): No SCD contraindicated: low risk/ambulating Pharmacological prophylaxis: NA/contraindicated Pharm contraindication: bleeding Lines/Catheters [facility] (from [facility] Saline Lock Urinary Cath still in place: No Assessment/Plan Assessment/Plan Assessment: Microcytic hypochromic anemia- likely multifactorial -FBOT +, Repeat test is negative Elevated LFTs- with very elevated ALk phos Diarrhea - resolved -Stool cx- Coliform -C-diff negative Hepatic lesion Transaminites Fatty liver Diabetes mellitus- with hyperglycemia-poorly controlled HTN Hyponatremia Bipolar disorder Homelessness Plan: PPI tx MRI with liver protocol Alk phos fractionation Patient seen in collaboration with Dr. Mai Subjective: Patient refused EGD/Colonoscopy. He is getting blood transfusion for Hgb 7.1. Abd US shows Hepatomegaly and steatosis and 2 cm hypoechoic lesion in the right hepatic lobe. Recommend multi phase liver protocol MRI for further evaluation. PHYSICAL EXAMINATION: GENERAL: Alert & oriented x 3, in no acute distress SKIN: No lesions EYES: Pupils equal reactive to light, no discharge. EARS/NOSE AND THROAT: Ears normal, nose normal NECK: Supple. CHEST: Inspection within normal limits. CARDIOVASCULAR: Heart: Regular rate and rhythm RESPIRATORY: Lungs clear to auscultation GASTROINTESTINAL AND LIVER: Abdomen: Soft, non tenderness, non-distended, no hernias, no masses, no organomegaly, no ascites, no guarding, no rebound tenderness, normoactive bowel sounds. Rectal: Deferred. GENITOURINARY: Male genitalia within normal limits. EXTREMITIES: No cyanosis, clubbing or edema. Result Diagram: 10/06/18 0557 10/06/18 0557 Results 24hrs Laboratory Tests Test 10/05/18 16:30 10/05/18 17:14 10/05/18 20:48 10/06/18 05:57 Potassium Level 3.0 L 3.2 L Bedside Glucose 94 239 H White Blood Count 7.6 Red Blood Count 3.10 L Hemoglobin 7.1 L Hematocrit 23.0 L Mean Corpuscular 74.2 L Volume Mean Corpuscular 22.9 L Hemoglobin Mean Corpuscular 30.9 L Hemoglobin Concent Red Cell 14.2 Distribution Width Platelet Count 95 L Mean Platelet Volume 10.0 Immature 2.800 H Granulocytes % Neutrophils % Segmented 78 H Neutrophils % (Manual) Band Neutrophils % 1 (Manual) Lymphocytes % Lymphocytes % 14 L (Manual) Monocytes % Monocytes % (Manual) 6 Eosinophils % Basophils % Metamyelocytes % 1 H (manual) Nucleated Red Blood 0.0 Cells % Immature 0.210 H Granulocytes # Neutrophils # Neutrophils # 5.9 (Manual) Band Neutrophils # 0.0 Lymphocytes (Manual) 1.0 Lymphocytes # Monocytes # Monocytes # (Manual) 0.4 Eosinophils # Basophils # Metamyelocytes # 0.0 Nucleated Red Blood Cells # Toxic Granulation 1+ Dohle Bodies 1+ Platelet Estimate DECREASED Giant Platelets 1 H Polychromasia 1+ Hypochromasia 2+ Poikilocytosis 1+ Anisocytosis 2+ Microcytosis 2+ Ovalocytes 1+ Sodium Level 135 Chloride Level 103 Carbon Dioxide Level 27 Anion Gap 5 Blood Urea Nitrogen 13 Creatinine 0.40 L Est Glomerular > 60 Filtrat Rate mL/min Glucose Level 182 Calcium Level 8.2 L Phosphorus Level 2.0 L Magnesium Level 1.6 L Test 10/06/18 08:27 10/06/18 12:19 Bedside Glucose 265 H 318 H Exam/Review of Systems Exam Vitals Vital Signs Date Temp Pulse Resp B/P (MAP) Pulse Ox O2 O2 Flow FiO2 Time Delivery Rate 10/06/18 98.2 106 20 129/76 94 Room Air 07:25 (93) 10/02/18 2.0 08:00 Intake and Output 10/05/18 10/05/18 10/06/18 1515:00 23:00 07:00 IntakeIntake Total 1615 ml 780 ml 110 ml OutputOutput Total 750 ml BalanceBalance 1615 ml 30 ml 110 ml Results Results 24hrs Laboratory Tests Test 10/05/18 16:30 10/05/18 17:14 10/05/18 20:48 10/06/18 05:57 Potassium Level 3.0 L 3.2 L Bedside Glucose 94 239 H White Blood Count 7.6 Red Blood Count 3.10 L Hemoglobin 7.1 L Hematocrit 23.0 L Mean Corpuscular 74.2 L Volume Mean Corpuscular 22.9 L Hemoglobin Mean Corpuscular 30.9 L Hemoglobin Concent Red Cell 14.2 Distribution Width Platelet Count 95 L Mean Platelet Volume 10.0 Immature 2.800 H Granulocytes % Neutrophils % Segmented 78 H Neutrophils % (Manual) Band Neutrophils % 1 (Manual) Lymphocytes % Lymphocytes % 14 L (Manual) Monocytes % Monocytes % (Manual) 6 Eosinophils % Basophils % Metamyelocytes % 1 H (manual) Nucleated Red Blood 0.0 Cells % Immature 0.210 H Granulocytes # Neutrophils # Neutrophils # 5.9 (Manual) Band Neutrophils # 0.0 Lymphocytes (Manual) 1.0 Lymphocytes # Monocytes # Monocytes # (Manual) 0.4 Eosinophils # Basophils # Metamyelocytes # 0.0 Nucleated Red Blood Cells # Toxic Granulation 1+ Dohle Bodies 1+ Platelet Estimate DECREASED Giant Platelets 1 H Polychromasia 1+ Hypochromasia 2+ Poikilocytosis 1+ Anisocytosis 2+ Microcytosis 2+ Ovalocytes 1+ Sodium Level 135 Chloride Level 103 Carbon Dioxide Level 27 Anion Gap 5 Blood Urea Nitrogen 13 Creatinine 0.40 L Est Glomerular > 60 Filtrat Rate mL/min Glucose Level 182 Calcium Level 8.2 L Phosphorus Level 2.0 L Magnesium Level 1.6 L Test 10/06/18 08:27 10/06/18 12:19 Bedside Glucose 265 H 318 H Medications Medication Current Medications Aspirin (Halfprin) 81 mg DAILY PO Last administered on 10/06/18 08:28; Admin Dose 81 MG; Start 10/02/18 at 09:00 Atorvastatin Calcium (Lipitor) 20 mg QHS PO Last administered on 10/05/18at 20:52; Admin Dose 20 MG; Start 10/02/18 at 21:00 Buspirone HCl (Buspar) 5 mg BID PO Last administered on 10/06/18 08:28; Admin Dose 5 MG; Start 10/02/18 at 09:00 Docusate Sodium (Colace) 100 mg BID PO Last administered on 10/06/18 08:28; Admin Dose 100 MG; Start 10/02/18 at 09:00 Gabapentin (Neurontin) 300 mg TID PO Last administered on 10/06/18 12:15; Admin Dose 300 MG; Start 10/02/18 at 09:00 Lisinopril (Zestril) 10 mg DAILY PO Last administered on 10/06/18 08:29; Admin Dose 10 MG; Start 10/02/18 at 09:00 Ondansetron HCl (Zofran Inj) 4 mg Q6H PRN IV NAUSEA AND/OR VOMITING; Start 10/02/18 at 02:00 Albuterol (Proventil 0.083% (Neb)) 2.5 mg Q2H RESP THERAPY PRN NEB SHORTNESS OF BREATH; Start 10/02/18 at 02:00 Acetaminophen (Tylenol Liquid) 650 mg Q6H PRN PO PAIN LEVEL 1-3 OR FEVER Last administered on 10/05/18at 01:38; Admin Dose 650 MG; Start 10/02/18 at 02:00 Menthol/Methyl Salicylate (Memo Erazo) 1 applic TID PRN TOP pain; Start 10/02/18 at 06:30 Tramadol HCl (Ultram) 50 mg Q6H PRN PO MODERATE PAIN LEVEL 4-6 Last administered on 10/06/18at 08:39; Admin Dose 50 MG; Start 10/02/18 at 11:00 Potassium Chloride 50 ml @ 50 mls/hr K PROTOCOL PRN IVPB PENDING LAB VALUE Last administered on 10/03/18at 09:55; Admin Dose 50 MLS/HR; Start 10/02/18 at 11:30 Potassium Chloride (Potassium Chloride Pwd/Soln) 20 meq PER PROTOCOL PRN PO POTASSIUM REPLACEMENT PROTOCOL; Start 10/02/18 at 11:30 Potassium Chloride (Potassium Chloride Pwd/Soln) 30 meq PER PROTOCOL PRN PO POTASSIUM REPLACEMENT PROTOCOL; Start 10/02/18 at 11:30 Potassium Chloride (Potassium Chloride Pwd/Soln) 40 meq PER PROTOCOL PRN PO POTASSIUM REPLACEMENT PROTOCOL; Start 10/02/18 at 11:30 Diagnostic Test (Pha) (Accu-Chek) 1 ea 02 XX Last administered on 10/03/18at 02:34; Admin Dose 1 EA; Start 10/03/18 at 02:00 Insulin Aspart (Novolog Insulin Pen) NOVOLOG *MILD* ALGORITHM WITH MEALS BEDTIME SC Last administered on 10/06/18at 12:21; Admin Dose 5 UNIT; Start 10/02/18 at 17:35 Miscellaneous Information 1 ea NOTE XX ; Start 10/02/18 at 22:00 Glucose (Glutose) 15 gm Q15M PRN PO DECREASED GLUCOSE; Start 10/02/18 at 22:00 Glucose (Glutose) 22.5 gm Q15M PRN PO DECREASED GLUCOSE; Start 10/02/18 at 22:00 Dextrose (D50w Syringe) 25 ml Q15M PRN IV DECREASED GLUCOSE Last administered on 10/03/18 02:31; Admin Dose 25 ML; Start 10/02/18 at 22:00 Dextrose (D50w Syringe) 50 ml Q15M PRN IV DECREASED GLUCOSE; Start 10/02/18 at 22:00 Glucagon (Glucagen) 1 mg Q15M PRN IM DECREASED GLUCOSE; Start 10/02/18 at 22:00 Glucose (Glutose) 15 gm Q15M PRN BUCCAL DECREASED GLUCOSE; Start 10/02/18 at 22:00 Diagnostic Test (Pha) (Accu-Chek) 1 ea AC MEALS AND BEDTIME XX Last administered on 10/05/18at 20:56; Admin Dose 1 EA; Start 10/03/18 at 17:05 Insulin Glargine (Lantus) 18 units DAILY@0800 SC Last administered on 10/06/18 08:33; Admin Dose 18 UNITS; Start 10/04/18 at 12:00 Insulin Aspart (Novolog Insulin Pen) 6 unit WITH MEALS SC Last administered on 10/06/18at 12:21; Admin Dose 6 UNIT; Start 10/04/18 at 17:55 Calcium Carbonate (Tums) 500 mg Q4 PRN PO epigastric pain Last administered on 10/05/18at 01:34; Admin Dose 500 MG; Start 10/05/18 at 01:30 Ferric Sodium Gluconate Complex 125 mg/Sodium Chloride 110 ml @ 110 mls/hr DAILY@1300 IVPB Last administered on 10/05/18at 20:17; Admin Dose 110 MLS/HR; Start 10/05/18 at 17:00; Stop 10/09/18 at 13:59 Pantoprazole (Protonix Tab) 40 mg DAILY@06 PO Last administered on 10/06/18 06:08; Admin Dose 40 MG; Start 10/06/18 at 06:00 WILLIAM QUINONES NP Oct 06, 2018 14:52
[2018-10-06] MEDS: SOD FERRIC GLUC COMPLX 125 MG in SOD CHLORIDE 0.9% 100 ML IVPB SCH (15:00)
[2018-10-06 20:44] VITALS: BP 121/68; PULSE 95; RESP 20
[2018-10-06] MEDS ORDERED: INSULIN ASPART [NOVOLOG] 3 ML PEN SC ONE (21:00)
[2018-10-06] MEDS: ATORVASTATIN 20 MG TAB PO SCH (21:02)
[2018-10-07] MEDS: ACCU-CHEK XX SCH ×5 (01:23→21:06)
[2018-10-07 01:47] VITALS: BP 133/72; PULSE 94; RESP 20
[2018-10-07] MEDS: PANTOPRAZOLE (EC) 40 MG TAB PO SCH (06:01)
[2018-10-07 07:30] VITALS: BP 139/74; PULSE 88; RESP 20
[2018-10-07] MEDS: GABAPENTIN 300 MG CAP PO SCH ×3 (08:33→21:03)
[2018-10-07] MEDS: BUSPIRONE 5 MG TAB PO SCH ×2 (08:33→21:03)
[2018-10-07] MEDS: ASPIRIN (EC) 81 MG TAB PO SCH (08:33)
[2018-10-07] MEDS: DOCUSATE SODIUM 100 MG CAP PO SCH ×2 (08:33→21:03)
[2018-10-07] MEDS: LISINOPRIL 10 MG TAB PO SCH (08:34)
[2018-10-07] MEDS: INSULIN ASPART [NOVOLOG] 3 ML PEN SC SCH ×7 (08:35→21:00)
[2018-10-07] MEDS: INSULIN GLARGINE [LANTus] (100 UNITS/ML) SYG SC SCH (08:38)
--- NOTE | 2018-10-07 09:45 | PN ---
Date/Time of Note Date/Time of Note DATE: 10/07/18 TIME: 09:41 Assessment/Plan VTE Prophylaxis Risk score (from [facility])>0 risk: 4 SCD applied (from [facility] [place]): No SCD contraindicated: other Pharmacological prophylaxis: NA/contraindicated Pharm contraindication: anticoag not tolerated Lines/Catheters IV Catheter Type (from [facility]): Saline Lock Urinary Cath still in place: No Assessment/Plan Hospital Course SUBJECTIVE: The patient keeps asking for more food. The patient's blood sugars are uncontrolled because of the same. OBJECTIVE: Physical Exam General: Adequately build 62 year-old male lying in bed in no apparent distress. HEENT: Normocephalic, atraumatic. Eyes: Anicteric sclerae, conjunctivae clear. ENT: Nasal septum midline, oral mucosa moist. Neck supple, no JVD noticed. Respiratory: Bilaterally clear breath sounds. No use of accessory muscles of respiration. No adventitious breath sounds. Cardiovascular: S1, S2 heard. Regular rate and rhythm. Abdomen: Soft, nontender, and nondistended. Bowel sounds positive in all 4 quadrants. Genitourinary: Deferred. Extremities: No cyanosis, no clubbing, no edema. Peripheral pulses palpable. Neurologic: The patient is awake, alert, and oriented. Vitals & Labs per chart. ASSESSMENT & PLAN 63-year-old male with past medical history of diabetes mellitus, bipolar disorder, chronic back pain, and homelessness who came to the emergency room with multiple complaints. The patient was noticed to have underlying hyperglycemia. The patient did not have any evidence of DKA. The patient was admitted to inpatient setting for further treatment and evaluation. 1. -Hyperglycemia. -S/P insulin drip. -No evidence of any DKA. -Continue sliding scale insulin along with pre-meal insulin basal insulin. 2. Diabetes mellitus. -Uncontrolled. -Hemoglobin A1C >14sent out. -Continue SSI along with pre-meal insulin and basal insulin. 3. Bipolar disorder. -Continue mood stabilizers. 4. Hyponatremia. -Etiology could be multifactorial including underlying hyperglycemia. -Correct hyperglycemia. -Resolved. 5. Essential hypertension. -Continue antihypertensives. 6. Dyslipidemia. -Continue statins. 7. Transaminitis. -Etiology unclear. -Hepatitis panel negative. 8. Anemia. -Microcytic and hypochromic. -Stool OB X1 positive. Repeat stool for OB negative. -Elevated LDH with CBC from admission showing nucleated RBC, concerning for hemolytic anemia. Obtain hematology consult. -Patient was noncompliant with status post hematology bowel preparation. -Status post hematology evaluation who conveyed that the patient's anemia is secondary to underlying iron deficiency. -Transfuse 1 unit of PRBC today 9. Indeterminate 2 cm hypoechoic lesion in the right hepatic lobe. -Abdominal MRI ordered. -Add AFP. 10. Homelessness. 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 11. Severe protein calorie malnutrition. -Podiatry consult. -Dietary supplements. 12. Non-compliance with medications and diet. -Reinforced importance of compliance.. 13. Fluids, electrolytes, and nutrition. -Carbohydrate controlled diet. 14. DVT prophylaxis. -SQ Lovenox. -Held because of worsening anemia. 15. Plan. -Correct electrolytes. -Await abdominal MRI. The patient was seen in collaboration with Dr. Arriaga. Result Diagram: 10/07/18 0556 10/07/18 0556 Results 24hrs Laboratory Tests Test 10/06/18 12:19 10/06/18 15:02 10/06/18 17:13 10/06/18 20:37 Bedside Glucose 318 H 344 H 313 H Hemoglobin 7.7 L Hematocrit 25.1 L Test 10/07/18 01:22 10/07/18 05:56 10/07/18 08:31 Bedside Glucose 289 H 334 H White Blood Count 8.5 Red Blood Count 3.48 L Hemoglobin 8.3 L Hematocrit 26.7 L Mean Corpuscular 76.7 L Volume Mean Corpuscular 23.9 L Hemoglobin Mean Corpuscular 31.1 L Hemoglobin Concent Red Cell 14.6 H Distribution Width Platelet Count 171 # Mean Platelet Volume 10.3 Immature 5.300 H Granulocytes % Neutrophils % 58.9 Lymphocytes % 21.8 Monocytes % 12.7 H Eosinophils % 0.8 Basophils % 0.5 Nucleated Red Blood 0.0 Cells % Immature 0.450 H Granulocytes # Neutrophils # 5.0 Lymphocytes # 1.9 Monocytes # 1.1 H Eosinophils # 0.1 Basophils # 0.0 Nucleated Red Blood 0.0 Cells # Sodium Level 137 Potassium Level 3.4 L Chloride Level 102 Carbon Dioxide Level 28 Anion Gap 7 Blood Urea Nitrogen 11 Creatinine 0.44 L Est Glomerular > 60 Filtrat Rate mL/min Glucose Level 303 H Calcium Level 8.3 L Phosphorus Level 2.5 Magnesium Level 1.8 Exam/Review of Systems Exam Vitals Vital Signs Date Temp Pulse Resp B/P (MAP) Pulse Ox O2 O2 Flow FiO2 Time Delivery Rate 10/07/18 98.3 88 20 139/74 99 Room Air 07:30 (95) Intake and Output 10/06/18 10/06/18 10/07/18 1515:00 23:00 07:00 IntakeIntake Total 290 ml 790 ml BalanceBalance 290 ml 790 ml Results Results 24hrs Laboratory Tests Test 10/06/18 12:19 10/06/18 15:02 10/06/18 17:13 10/06/18 20:37 Bedside Glucose 318 H 344 H 313 H Hemoglobin 7.7 L Hematocrit 25.1 L Test 10/07/18 01:22 10/07/18 05:56 10/07/18 08:31 Bedside Glucose 289 H 334 H White Blood Count 8.5 Red Blood Count 3.48 L Hemoglobin 8.3 L Hematocrit 26.7 L Mean Corpuscular 76.7 L Volume Mean Corpuscular 23.9 L Hemoglobin Mean Corpuscular 31.1 L Hemoglobin Concent Red Cell 14.6 H Distribution Width Platelet Count 171 # Mean Platelet Volume 10.3 Immature 5.300 H Granulocytes % Neutrophils % 58.9 Lymphocytes % 21.8 Monocytes % 12.7 H Eosinophils % 0.8 Basophils % 0.5 Nucleated Red Blood 0.0 Cells % Immature 0.450 H Granulocytes # Neutrophils # 5.0 Lymphocytes # 1.9 Monocytes # 1.1 H Eosinophils # 0.1 Basophils # 0.0 Nucleated Red Blood 0.0 Cells # Sodium Level 137 Potassium Level 3.4 L Chloride Level 102 Carbon Dioxide Level 28 Anion Gap 7 Blood Urea Nitrogen 11 Creatinine 0.44 L Est Glomerular > 60 Filtrat Rate mL/min Glucose Level 303 H Calcium Level 8.3 L Phosphorus Level 2.5 Magnesium Level 1.8 Medications Medication Current Medications Aspirin (Halfprin) 81 mg DAILY PO Last administered on 10/07/18at 08:33; Admin Dose 81 MG; Start 10/02/18 at 09:00 Atorvastatin Calcium (Lipitor) 20 mg QHS PO Last administered on 10/06/18at 21:02; Admin Dose 20 MG; Start 10/02/18 at 21:00 Buspirone HCl (Buspar) 5 mg BID PO Last administered on 10/07/18 08:33; Admin Dose 5 MG; Start 10/02/18 at 09:00 Docusate Sodium (Colace) 100 mg BID PO Last administered on 10/07/18 08:33; Admin Dose 100 MG; Start 10/02/18 at 09:00 Gabapentin (Neurontin) 300 mg TID PO Last administered on 10/07/18 08:33; Admin Dose 300 MG; Start 10/02/18 at 09:00 Lisinopril (Zestril) 10 mg DAILY PO Last administered on 10/07/18 08:34; Admin Dose 10 MG; Start 10/02/18 at 09:00 Ondansetron HCl (Zofran Inj) 4 mg Q6H PRN IV NAUSEA AND/OR VOMITING; Start 10/02/18 at 02:00 Albuterol (Proventil 0.083% (Neb)) 2.5 mg Q2H RESP THERAPY PRN NEB SHORTNESS OF BREATH; Start 10/02/18 at 02:00 Acetaminophen (Tylenol Liquid) 650 mg Q6H PRN PO PAIN LEVEL 1-3 OR FEVER Last administered on 10/05/18 01:38; Admin Dose 650 MG; Start 10/02/18 at 02:00 Menthol/Methyl Salicylate (Memo Erazo) 1 applic TID PRN TOP pain; Start 10/02/18 at 06:30 Tramadol HCl (Ultram) 50 mg Q6H PRN PO MODERATE PAIN LEVEL 4-6 Last administered on 10/06/18 21:03; Admin Dose 50 MG; Start 10/02/18 at 11:00 Potassium Chloride 50 ml @ 50 mls/hr K PROTOCOL PRN IVPB PENDING LAB VALUE Last administered on 10/03/18 09:55; Admin Dose 50 MLS/HR; Start 10/02/18 at 11:30 Potassium Chloride (Potassium Chloride Pwd/Soln) 20 meq PER PROTOCOL PRN PO POTASSIUM REPLACEMENT PROTOCOL; Start 10/02/18 at 11:30 Potassium Chloride (Potassium Chloride Pwd/Soln) 30 meq PER PROTOCOL PRN PO POTASSIUM REPLACEMENT PROTOCOL; Start 10/02/18 at 11:30 Potassium Chloride (Potassium Chloride Pwd/Soln) 40 meq PER PROTOCOL PRN PO POTASSIUM REPLACEMENT PROTOCOL; Start 10/02/18 at 11:30 Diagnostic Test (Pha) (Accu-Chek) 1 ea 02 XX Last administered on 10/07/18at 01:23; Admin Dose 1 EA; Start 10/03/18 at 02:00 Miscellaneous Information 1 ea NOTE XX ; Start 10/02/18 at 22:00 Glucose (Glutose) 15 gm Q15M PRN PO DECREASED GLUCOSE; Start 10/02/18 at 22:00 Glucose (Glutose) 22.5 gm Q15M PRN PO DECREASED GLUCOSE; Start 10/02/18 at 22:00 Dextrose (D50w Syringe) 25 ml Q15M PRN IV DECREASED GLUCOSE Last administered on 10/03/18at 02:31; Admin Dose 25 ML; Start 10/02/18 at 22:00 Dextrose (D50w Syringe) 50 ml Q15M PRN IV DECREASED GLUCOSE; Start 10/02/18 at 22:00 Glucagon (Glucagen) 1 mg Q15M PRN IM DECREASED GLUCOSE; Start 10/02/18 at 22:00 Glucose (Glutose) 15 gm Q15M PRN BUCCAL DECREASED GLUCOSE; Start 10/02/18 at 22:00 Diagnostic Test (Pha) (Accu-Chek) 1 ea AC MEALS AND BEDTIME XX Last administered on 10/06/18at 21:08; Admin Dose 1 EA; Start 10/03/18 at 17:05 Insulin Glargine (Lantus) 18 units DAILY@0800 SC Last administered on 10/07/18at 08:38; Admin Dose 18 UNITS; Start 10/04/18 at 12:00 Insulin Aspart (Novolog Insulin Pen) 6 unit WITH MEALS SC Last administered on 10/07/18at 08:38; Admin Dose 6 UNIT; Start 10/04/18 at 17:55 Calcium Carbonate (Tums) 500 mg Q4 PRN PO epigastric pain Last administered on 10/05/18at 01:34; Admin Dose 500 MG; Start 10/05/18 at 01:30 Ferric Sodium Gluconate Complex 125 mg/Sodium Chloride 110 ml @ 110 mls/hr DAILY@1300 IVPB Last administered on 10/06/18at 15:00; Admin Dose 110 MLS/HR; Start 10/05/18 at 17:00; Stop 10/09/18 at 13:59 Pantoprazole (Protonix Tab) 40 mg DAILY@06 PO Last administered on 10/07/18at 06:01; Admin Dose 40 MG; Start 10/06/18 at 06:00 Insulin Aspart (Novolog Insulin Pen) NOVOLOG *MODERATE* ALGORITHM WITH MEALS BEDTIME SC Last administered on 10/07/18at 08:35; Admin Dose 10 UNIT; Start 10/06/18 at 21:00 HERRERA SALDAÑA NP Oct 07, 2018 09:45
[2018-10-07] MEDS ORDERED: POTASSIUM CHLORIDE (SR) 10 MEQ TAB PO ONE (10:00)
[2018-10-07] MEDS: SOD FERRIC GLUC COMPLX 125 MG in SOD CHLORIDE 0.9% 100 ML IVPB SCH (12:13)
--- NOTE | 2018-10-07 13:12 | CONS ---
Assessment/Plan Assessment/Plan Assessment/Plan (Daily) #Anemia- hgb- 7.7 -pt has a low iron saturation in the setting of a high ferritin and low TIBC. This is most consistent with anemia of chronic inflammation as well as a component of iron deficiency -pt definitely needs GI eval for iron deficiency anemia -his chronic inflammation is likely from his uncontrolled diabetes -will start IV iron -ok to transfuse at this time -mildly high LDH with normal haptoglobin rules out hemolysis. If patient did have hemolysis, his haptoglobin would be undetectable #DM -continue insulin per primary team #Bipolar -continue mood stabilizers Patient seen in collaboration with Dr Nunez Awake; denies any pain - daughter at bedside- all Qs answered. no new issues reported last night Consultation Date/Type/Reason Admit Date/Time Oct 02, 2018 at 12:05 am Initial Consult Date 10/04/18 Date/Time of Note DATE: 10/07/18 TIME: 13:12 24 HR Interval Summary Free Text/Dictation Entrty for 10/06/2018 Awake; denies any pain. no new issues reported last night Detailed Summary ENT: no complaints Respiratory: no complaints Cardiovascular: no complaints, edema Genitourinary: no complaints Exam/Review of Systems Exam Vitals Vital Signs Date Temp Pulse Resp B/P (MAP) Pulse Ox O2 O2 Flow FiO2 Time Delivery Rate 10/07/18 98.3 88 20 139/74 99 Room Air 07:30 (95) Intake and Output 10/06/18 10/06/18 10/07/18 1515:00 23:00 07:00 IntakeIntake Total 290 ml 790 ml BalanceBalance 290 ml 790 ml Constitutional: alert, well developed Psych: no complaints Eyes: nl lids, nl sclera ENMT: nl external ears & nose Neck: supple Cardiovascular: nl pulses, other (s1s2) Gastrointestinal: soft Musculoskeletal: nl extremities to inspection Neurological: nl speech, other (alert/awake) Skin: nl turgor Lymph: nontender Results Result Diagram: 10/07/18 0556 10/07/18 0556 Results 24hrs Laboratory Tests Test 10/06/18 15:02 10/06/18 17:13 10/06/18 20:37 10/07/18 01:22 Hemoglobin 7.7 L Hematocrit 25.1 L Bedside Glucose 344 H 313 H 289 H Test 10/07/18 05:53 10/07/18 05:56 10/07/18 08:31 10/07/18 12:10 Alpha Fetoprotein 2.09 White Blood Count 8.5 Red Blood Count 3.48 L Hemoglobin 8.3 L Hematocrit 26.7 L Mean Corpuscular 76.7 L Volume Mean Corpuscular 23.9 L Hemoglobin Mean Corpuscular 31.1 L Hemoglobin Concent Red Cell 14.6 H Distribution Width Platelet Count 171 # Mean Platelet Volume 10.3 Immature 5.300 H Granulocytes % Neutrophils % 58.9 Lymphocytes % 21.8 Monocytes % 12.7 H Eosinophils % 0.8 Basophils % 0.5 Nucleated Red Blood 0.0 Cells % Immature 0.450 H Granulocytes # Neutrophils # 5.0 Lymphocytes # 1.9 Monocytes # 1.1 H Eosinophils # 0.1 Basophils # 0.0 Nucleated Red Blood 0.0 Cells # Sodium Level 137 Potassium Level 3.4 L Chloride Level 102 Carbon Dioxide Level 28 Anion Gap 7 Blood Urea Nitrogen 11 Creatinine 0.44 L Est Glomerular > 60 Filtrat Rate mL/min Glucose Level 303 H Calcium Level 8.3 L Phosphorus Level 2.5 Magnesium Level 1.8 Bedside Glucose 334 H 201 Medications Medication Current Medications Aspirin (Halfprin) 81 mg DAILY PO Last administered on 10/07/18 08:33; Admin Dose 81 MG; Start 10/02/18 at 09:00 Atorvastatin Calcium (Lipitor) 20 mg QHS PO Last administered on 10/06/18 21:02; Admin Dose 20 MG; Start 10/02/18 at 21:00 Buspirone HCl (Buspar) 5 mg BID PO Last administered on 10/07/18 08:33; Admin Dose 5 MG; Start 10/02/18 at 09:00 Docusate Sodium (Colace) 100 mg BID PO Last administered on 10/07/18 08:33; Admin Dose 100 MG; Start 10/02/18 at 09:00 Gabapentin (Neurontin) 300 mg TID PO Last administered on 10/07/18 12:12; Admin Dose 300 MG; Start 10/02/18 at 09:00 Lisinopril (Zestril) 10 mg DAILY PO Last administered on 10/07/18 08:34; Admin Dose 10 MG; Start 10/02/18 at 09:00 Ondansetron HCl (Zofran Inj) 4 mg Q6H PRN IV NAUSEA AND/OR VOMITING; Start 10/02/18 at 02:00 Albuterol (Proventil 0.083% (Neb)) 2.5 mg Q2H RESP THERAPY PRN NEB SHORTNESS OF BREATH; Start 10/02/18 at 02:00 Acetaminophen (Tylenol Liquid) 650 mg Q6H PRN PO PAIN LEVEL 1-3 OR FEVER Last administered on 10/05/18at 01:38; Admin Dose 650 MG; Start 10/02/18 at 02:00 Menthol/Methyl Salicylate (Memo Erazo) 1 applic TID PRN TOP pain; Start 10/02/18 at 06:30 Tramadol HCl (Ultram) 50 mg Q6H PRN PO MODERATE PAIN LEVEL 4-6 Last administered on 10/06/18at 21:03; Admin Dose 50 MG; Start 10/02/18 at 11:00 Potassium Chloride 50 ml @ 50 mls/hr K PROTOCOL PRN IVPB PENDING LAB VALUE Last administered on 10/03/18at 09:55; Admin Dose 50 MLS/HR; Start 10/02/18 at 11:30 Potassium Chloride (Potassium Chloride Pwd/Soln) 20 meq PER PROTOCOL PRN PO POTASSIUM REPLACEMENT PROTOCOL; Start 10/02/18 at 11:30 Potassium Chloride (Potassium Chloride Pwd/Soln) 30 meq PER PROTOCOL PRN PO POTASSIUM REPLACEMENT PROTOCOL; Start 10/02/18 at 11:30 Potassium Chloride (Potassium Chloride Pwd/Soln) 40 meq PER PROTOCOL PRN PO POTASSIUM REPLACEMENT PROTOCOL; Start 10/02/18 at 11:30 Diagnostic Test (Pha) (Accu-Chek) 1 ea 02 XX Last administered on 10/07/18at 01:23; Admin Dose 1 EA; Start 10/03/18 at 02:00 Miscellaneous Information 1 ea NOTE XX ; Start 10/02/18 at 22:00 Glucose (Glutose) 15 gm Q15M PRN PO DECREASED GLUCOSE; Start 10/02/18 at 22:00 Glucose (Glutose) 22.5 gm Q15M PRN PO DECREASED GLUCOSE; Start 10/02/18 at 22:00 Dextrose (D50w Syringe) 25 ml Q15M PRN IV DECREASED GLUCOSE Last administered on 10/03/18at 02:31; Admin Dose 25 ML; Start 10/02/18 at 22:00 Dextrose (D50w Syringe) 50 ml Q15M PRN IV DECREASED GLUCOSE; Start 10/02/18 at 22:00 Glucagon (Glucagen) 1 mg Q15M PRN IM DECREASED GLUCOSE; Start 10/02/18 at 22:00 Glucose (Glutose) 15 gm Q15M PRN BUCCAL DECREASED GLUCOSE; Start 10/02/18 at 22:00 Diagnostic Test (Pha) (Accu-Chek) 1 ea AC MEALS AND BEDTIME XX Last administered on 10/06/18 21:08; Admin Dose 1 EA; Start 10/03/18 at 17:05 Insulin Glargine (Lantus) 18 units DAILY@0800 SC Last administered on 10/07/18 08:38; Admin Dose 18 UNITS; Start 10/04/18 at 12:00 Insulin Aspart (Novolog Insulin Pen) 6 unit WITH MEALS SC Last administered on 10/07/18 12:12; Admin Dose 6 UNIT; Start 10/04/18 at 17:55 Calcium Carbonate (Tums) 500 mg Q4 PRN PO epigastric pain Last administered on 10/05/18 01:34; Admin Dose 500 MG; Start 10/05/18 at 01:30 Ferric Sodium Gluconate Complex 125 mg/Sodium Chloride 110 ml @ 110 mls/hr DAILY@1300 IVPB Last administered on 10/07/18 12:13; Admin Dose 110 MLS/HR; Start 10/05/18 at 17:00; Stop 10/09/18 at 13:59 Pantoprazole (Protonix Tab) 40 mg DAILY@06 PO Last administered on 10/07/18 06:01; Admin Dose 40 MG; Start 10/06/18 at 06:00 Insulin Aspart (Novolog Insulin Pen) NOVOLOG *MODERATE* ALGORITHM WITH MEALS BEDTIME SC Last administered on 10/07/18 12:11; Admin Dose 4 UNIT; Start 10/06/18 at 21:00 JEANA MEMBRENO Oct 07, 2018 1:12 pm
--- NOTE | 2018-10-07 13:14 | CONS ---
Assessment/Plan Assessment/Plan Assessment/Plan (Daily) #Anemia -pt has a low iron saturation in the setting of a high ferritin and low TIBC. This is most consistent with anemia of chronic inflammation as well as a component of iron deficiency -pt definitely needs GI eval for iron deficiency anemia -his chronic inflammation is likely from his uncontrolled diabetes -will start IV iron -ok to transfuse at this time -mildly high LDH with normal haptoglobin rules out hemolysis. If patient did have hemolysis, his haptoglobin would be undetectable #DM -continue insulin per primary team #Bipolar -continue mood stabilizers Patient seen in collaboration with Dr Nunez Consultation Date/Type/Reason Admit Date/Time Oct 02, 2018 at 12:05 am Initial Consult Date 10/04/18 Type of Consult oncology Reason for Consultation Anemia Date/Time of Note DATE: 10/07/18 TIME: 13:13 24 HR Interval Summary Free Text/Dictation For MRI abdomen today Awake; denies any pain - Patient is found to have bugs on his head no new issues reported last night Detailed Summary Eyes: no complaints ENT: no complaints Respiratory: no complaints Cardiovascular: no complaints Gastrointestinal: pain Genitourinary: no complaints Musculoskeletal: no complaints Neurologic: no complaints Exam/Review of Systems Exam Vitals Vital Signs Date Temp Pulse Resp B/P (MAP) Pulse Ox O2 O2 Flow FiO2 Time Delivery Rate 10/07/18 98.3 88 20 139/74 99 Room Air 07:30 (95) Intake and Output 10/06/18 10/06/18 10/07/18 1515:00 23:00 07:00 IntakeIntake Total 290 ml 790 ml BalanceBalance 290 ml 790 ml Constitutional: alert, well developed Psych: nl mood/affect Head: atraumatic Eyes: nl conjunctiva, EOMI, nl lids, nl sclera ENMT: nl external ears & nose Neck: supple Respiratory: clear to auscultation Cardiovascular: nl pulses, other (s1s2) Gastrointestinal: soft, tender Musculoskeletal: nl extremities to inspection Extremities: normal pulses Neurological: nl speech, other (awake/alert) Skin: nl turgor Lymph: nontender Results Result Diagram: 10/07/18 0556 10/07/18 0556 Results 24hrs Laboratory Tests Test 10/06/18 15:02 10/06/18 17:13 10/06/18 20:37 10/07/18 01:22 Hemoglobin 7.7 L Hematocrit 25.1 L Bedside Glucose 344 H 313 H 289 H Test 10/07/18 05:53 10/07/18 05:56 10/07/18 08:31 10/07/18 12:10 Alpha Fetoprotein 2.09 White Blood Count 8.5 Red Blood Count 3.48 L Hemoglobin 8.3 L Hematocrit 26.7 L Mean Corpuscular 76.7 L Volume Mean Corpuscular 23.9 L Hemoglobin Mean Corpuscular 31.1 L Hemoglobin Concent Red Cell 14.6 H Distribution Width Platelet Count 171 # Mean Platelet Volume 10.3 Immature 5.300 H Granulocytes % Neutrophils % 58.9 Lymphocytes % 21.8 Monocytes % 12.7 H Eosinophils % 0.8 Basophils % 0.5 Nucleated Red Blood 0.0 Cells % Immature 0.450 H Granulocytes # Neutrophils # 5.0 Lymphocytes # 1.9 Monocytes # 1.1 H Eosinophils # 0.1 Basophils # 0.0 Nucleated Red Blood 0.0 Cells # Sodium Level 137 Potassium Level 3.4 L Chloride Level 102 Carbon Dioxide Level 28 Anion Gap 7 Blood Urea Nitrogen 11 Creatinine 0.44 L Est Glomerular > 60 Filtrat Rate mL/min Glucose Level 303 H Calcium Level 8.3 L Phosphorus Level 2.5 Magnesium Level 1.8 Bedside Glucose 334 H 201 Medications Medication Current Medications Aspirin (Halfprin) 81 mg DAILY PO Last administered on 10/07/18 08:33; Admin Dose 81 MG; Start 10/02/18 at 09:00 Atorvastatin Calcium (Lipitor) 20 mg QHS PO Last administered on 10/06/18 21:02; Admin Dose 20 MG; Start 10/02/18 at 21:00 Buspirone HCl (Buspar) 5 mg BID PO Last administered on 10/07/18 08:33; Admin Dose 5 MG; Start 10/02/18 at 09:00 Docusate Sodium (Colace) 100 mg BID PO Last administered on 10/07/18 08:33; Admin Dose 100 MG; Start 10/02/18 at 09:00 Gabapentin (Neurontin) 300 mg TID PO Last administered on 10/07/18 12:12; Admin Dose 300 MG; Start 10/02/18 at 09:00 Lisinopril (Zestril) 10 mg DAILY PO Last administered on 2/24/19at 08:34; Admin Dose 10 MG; Start 10/02/18 at 09:00 Ondansetron HCl (Zofran Inj) 4 mg Q6H PRN IV NAUSEA AND/OR VOMITING; Start 10/02/18 at 02:00 Albuterol (Proventil 0.083% (Neb)) 2.5 mg Q2H RESP THERAPY PRN NEB SHORTNESS OF BREATH; Start 10/02/18 at 02:00 Acetaminophen (Tylenol Liquid) 650 mg Q6H PRN PO PAIN LEVEL 1-3 OR FEVER Last administered on 10/05/18at 01:38; Admin Dose 650 MG; Start 10/02/18 at 02:00 Menthol/Methyl Salicylate (Memo Erazo) 1 applic TID PRN TOP pain; Start 10/02/18 at 06:30 Tramadol HCl (Ultram) 50 mg Q6H PRN PO MODERATE PAIN LEVEL 4-6 Last administered on 10/06/18at 21:03; Admin Dose 50 MG; Start 10/02/18 at 11:00 Potassium Chloride 50 ml @ 50 mls/hr K PROTOCOL PRN IVPB PENDING LAB VALUE Last administered on 10/03/18at 09:55; Admin Dose 50 MLS/HR; Start 10/02/18 at 11:30 Potassium Chloride (Potassium Chloride Pwd/Soln) 20 meq PER PROTOCOL PRN PO POTASSIUM REPLACEMENT PROTOCOL; Start 10/02/18 at 11:30 Potassium Chloride (Potassium Chloride Pwd/Soln) 30 meq PER PROTOCOL PRN PO POTASSIUM REPLACEMENT PROTOCOL; Start 10/02/18 at 11:30 Potassium Chloride (Potassium Chloride Pwd/Soln) 40 meq PER PROTOCOL PRN PO POTASSIUM REPLACEMENT PROTOCOL; Start 10/02/18 at 11:30 Diagnostic Test (Pha) (Accu-Chek) 1 ea 02 XX Last administered on 10/07/18at 01:23; Admin Dose 1 EA; Start 10/03/18 at 02:00 Miscellaneous Information 1 ea NOTE XX ; Start 10/02/18 at 22:00 Glucose (Glutose) 15 gm Q15M PRN PO DECREASED GLUCOSE; Start 10/02/18 at 22:00 Glucose (Glutose) 22.5 gm Q15M PRN PO DECREASED GLUCOSE; Start 10/02/18 at 22:00 Dextrose (D50w Syringe) 25 ml Q15M PRN IV DECREASED GLUCOSE Last administered on 10/03/18 02:31; Admin Dose 25 ML; Start 10/02/18 at 22:00 Dextrose (D50w Syringe) 50 ml Q15M PRN IV DECREASED GLUCOSE; Start 10/02/18 at 22:00 Glucagon (Glucagen) 1 mg Q15M PRN IM DECREASED GLUCOSE; Start 10/02/18 at 22:00 Glucose (Glutose) 15 gm Q15M PRN BUCCAL DECREASED GLUCOSE; Start 10/02/18 at 22:00 Diagnostic Test (Pha) (Accu-Chek) 1 ea AC MEALS AND BEDTIME XX Last administered on 10/06/18 21:08; Admin Dose 1 EA; Start 10/03/18 at 17:05 Insulin Glargine (Lantus) 18 units DAILY@0800 SC Last administered on 10/07/18 08:38; Admin Dose 18 UNITS; Start 10/04/18 at 12:00 Insulin Aspart (Novolog Insulin Pen) 6 unit WITH MEALS SC Last administered on 10/07/18 12:12; Admin Dose 6 UNIT; Start 10/04/18 at 17:55 Calcium Carbonate (Tums) 500 mg Q4 PRN PO epigastric pain Last administered on 10/05/18 01:34; Admin Dose 500 MG; Start 10/05/18 at 01:30 Ferric Sodium Gluconate Complex 125 mg/Sodium Chloride 110 ml @ 110 mls/hr DAILY@1300 IVPB Last administered on 10/07/18 12:13; Admin Dose 110 MLS/HR; Start 10/05/18 at 17:00; Stop 10/09/18 at 13:59 Pantoprazole (Protonix Tab) 40 mg DAILY@06 PO Last administered on 10/07/18 06:01; Admin Dose 40 MG; Start 10/06/18 at 06:00 Insulin Aspart (Novolog Insulin Pen) NOVOLOG *MODERATE* ALGORITHM WITH MEALS BEDTIME SC Last administered on 10/07/18 12:11; Admin Dose 4 UNIT; Start 10/06/18 at 21:00 JEANA MEMBRENO Oct 07, 2018 1:14 pm
[2018-10-07] MEDS: DEXTROSE 50% 50 ML SYRINGE IV PRN ×2 (13:41→14:56)
--- NOTE | 2018-10-07 17:11 | PN ---
Date/Time of Note Date/Time of Note DATE: 10/07/18 TIME: 17:08 Assessment/Plan VTE Prophylaxis Risk score (from Ns)>0 risk: 2 SCD applied (from Ns): Yes SCD contraindicated: low risk/ambulating Pharmacological prophylaxis: NA/contraindicated Pharm contraindication: bleeding Lines/Catheters IV Catheter Type (from [facility] Urinary Cath still in place: No Assessment/Plan Assessment/Plan Assessment: Microcytic hypochromic anemia- likely multifactorial -FBOT +, Repeat test is negative Elevated LFTs- with very elevated ALk phos Diarrhea - resolved -Stool cx- Coliform -C-diff negative Hepatic lesion Transaminites Fatty liver Diabetes mellitus- with hyperglycemia-poorly controlled HTN Hyponatremia Bipolar disorder Homelessness Plan: PPI tx MRI with liver protocol - results pending Patient seen in collaboration with Dr. Mai Subjective: Patient refused EGD/Colonoscopy.Last blood transfusion was yesterday, currently hgb is stable. MRI was done to evaluate 2 cm hypoechoic lesion in the right hepa tic lobe. Results are pending. Patient is tolerating diet well. Denies abd pain, nausea, vomiting or hematochezia. PHYSICAL EXAMINATION: GENERAL: Alert & oriented x 3, in no acute distress SKIN: No lesions EYES: Pupils equal reactive to light, no discharge. EARS/NOSE AND THROAT: Ears normal, nose normal NECK: Supple. CHEST: Inspection within normal limits. CARDIOVASCULAR: Heart: Regular rate and rhythm RESPIRATORY: Lungs clear to auscultation GASTROINTESTINAL AND LIVER: Abdomen: Soft, non tenderness, non-distended, no hernias, no masses, no organomegaly, no ascites, no guarding, no rebound te nderness, normoactive bowel sounds. Rectal: Deferred. GENITOURINARY: Male genitalia within normal limits. EXTREMITIES: No cyanosis, clubbing or edema. Result Diagram: 10/07/18 0556 10/07/18 0556 Results 24hrs Laboratory Tests Test 10/06/18 17:13 10/06/18 20:37 10/07/18 01:22 10/07/18 05:53 Bedside Glucose 344 H 313 H 289 H Alpha Fetoprotein 2.09 Test 10/07/18 05:56 10/07/18 08:31 10/07/18 12:10 10/07/18 13:37 White Blood Count 8.5 Red Blood Count 3.48 L Hemoglobin 8.3 L Hematocrit 26.7 L Mean Corpuscular 76.7 L Volume Mean Corpuscular 23.9 L Hemoglobin Mean Corpuscular 31.1 L Hemoglobin Concent Red Cell 14.6 H Distribution Width Platelet Count 171 # Mean Platelet Volume 10.3 Immature 5.300 H Granulocytes % Neutrophils % 58.9 Lymphocytes % 21.8 Monocytes % 12.7 H Eosinophils % 0.8 Basophils % 0.5 Nucleated Red Blood 0.0 Cells % Immature 0.450 H Granulocytes # Neutrophils # 5.0 Lymphocytes # 1.9 Monocytes # 1.1 H Eosinophils # 0.1 Basophils # 0.0 Nucleated Red Blood 0.0 Cells # Sodium Level 137 Potassium Level 3.4 L Chloride Level 102 Carbon Dioxide Level 28 Anion Gap 7 Blood Urea Nitrogen 11 Creatinine 0.44 L Est Glomerular > 60 Filtrat Rate mL/min Glucose Level 303 H Calcium Level 8.3 L Phosphorus Level 2.5 Magnesium Level 1.8 Bedside Glucose 334 H 201 57 L Test 10/07/18 13:47 10/07/18 14:54 10/07/18 15:10 10/07/18 15:43 Bedside Glucose 128 58 L 98 134 Test 10/07/18 17:01 Bedside Glucose 96 CC: PATRICIA MAI MD ; Exam/Review of Systems Exam Vitals Vital Signs Date Temp Pulse Resp B/P (MAP) Pulse Ox O2 O2 Flow FiO2 Time Delivery Rate 10/07/18 98.3 88 20 139/74 99 Room Air 07:30 (95) Intake and Output 10/06/18 10/06/18 10/07/18 1515:00 23:00 07:00 IntakeIntake Total 290 ml 790 ml BalanceBalance 290 ml 790 ml Results Results 24hrs Laboratory Tests Test 10/06/18 17:13 10/06/18 20:37 10/07/18 01:22 10/07/18 05:53 Bedside Glucose 344 H 313 H 289 H Alpha Fetoprotein 2.09 Test 10/07/18 05:56 10/07/18 08:31 10/07/18 12:10 10/07/18 13:37 White Blood Count 8.5 Red Blood Count 3.48 L Hemoglobin 8.3 L Hematocrit 26.7 L Mean Corpuscular 76.7 L Volume Mean Corpuscular 23.9 L Hemoglobin Mean Corpuscular 31.1 L Hemoglobin Concent Red Cell 14.6 H Distribution Width Platelet Count 171 # Mean Platelet Volume 10.3 Immature 5.300 H Granulocytes % Neutrophils % 58.9 Lymphocytes % 21.8 Monocytes % 12.7 H Eosinophils % 0.8 Basophils % 0.5 Nucleated Red Blood 0.0 Cells % Immature 0.450 H Granulocytes # Neutrophils # 5.0 Lymphocytes # 1.9 Monocytes # 1.1 H Eosinophils # 0.1 Basophils # 0.0 Nucleated Red Blood 0.0 Cells # Sodium Level 137 Potassium Level 3.4 L Chloride Level 102 Carbon Dioxide Level 28 Anion Gap 7 Blood Urea Nitrogen 11 Creatinine 0.44 L Est Glomerular > 60 Filtrat Rate mL/min Glucose Level 303 H Calcium Level 8.3 L Phosphorus Level 2.5 Magnesium Level 1.8 Bedside Glucose 334 H 201 57 L Test 10/07/18 13:47 10/07/18 14:54 10/07/18 15:10 10/07/18 15:43 Bedside Glucose 128 58 L 98 134 Test 10/07/18 17:01 Bedside Glucose 96 Medications Medication Current Medications Aspirin (Halfprin) 81 mg DAILY PO Last administered on 10/07/18 08:33; Admin Dose 81 MG; Start 10/02/18 at 09:00 Atorvastatin Calcium (Lipitor) 20 mg QHS PO Last administered on 10/06/18 21:02; Admin Dose 20 MG; Start 10/02/18 at 21:00 Buspirone HCl (Buspar) 5 mg BID PO Last administered on 10/07/18 08:33; Admin Dose 5 MG; Start 10/02/18 at 09:00 Docusate Sodium (Colace) 100 mg BID PO Last administered on 10/07/18 08:33; Admin Dose 100 MG; Start 10/02/18 at 09:00 Gabapentin (Neurontin) 300 mg TID PO Last administered on 10/07/18 12:12; Admin Dose 300 MG; Start 10/02/18 at 09:00 Lisinopril (Zestril) 10 mg DAILY PO Last administered on 10/07/18 08:34; Admin Dose 10 MG; Start 10/02/18 at 09:00 Ondansetron HCl (Zofran Inj) 4 mg Q6H PRN IV NAUSEA AND/OR VOMITING; Start 10/02/18 at 02:00 Albuterol (Proventil 0.083% (Neb)) 2.5 mg Q2H RESP THERAPY PRN NEB SHORTNESS OF BREATH; Start 10/02/18 at 02:00 Acetaminophen (Tylenol Liquid) 650 mg Q6H PRN PO PAIN LEVEL 1-3 OR FEVER Last administered on 10/05/18 01:38; Admin Dose 650 MG; Start 10/02/18 at 02:00 Menthol/Methyl Salicylate (Memo Erazo) 1 applic TID PRN TOP pain; Start 10/02/18 at 06:30 Tramadol HCl (Ultram) 50 mg Q6H PRN PO MODERATE PAIN LEVEL 4-6 Last admini stered on 10/06/18 21:03; Admin Dose 50 MG; Start 10/02/18 at 11:00 Potassium Chloride 50 ml @ 50 mls/hr K PROTOCOL PRN IVPB PENDING LAB VALUE Last administered on 10/03/18 09:55; Admin Dose 50 MLS/HR; Start 10/02/18 at 11:30 Potassium Chloride (Potassium Chloride Pwd/Soln) 20 meq PER PROTOCOL PRN PO POTASSIUM REPLACEMENT PROTOCOL; Start 10/02/18 at 11:30 Potassium Chloride (Potassium Chloride Pwd/Soln) 30 meq PER PROTOCOL PRN PO POTASSIUM REPLACEMENT PROTOCOL; Start 10/02/18 at 11:30 Potassium Chloride (Potassium Chloride Pwd/Soln) 40 meq PER PROTOCOL PRN PO POTASSIUM REPLACEMENT PROTOCOL; Start 10/02/18 at 11:30 Diagnostic Test (Pha) (Accu-Chek) 1 ea 02 XX Last administered on 10/07/18at 01:23; Admin Dose 1 EA; Start 10/03/18 at 02:00 Miscellaneous Information 1 ea NOTE XX ; Start 10/02/18 at 22:00 Glucose (Glutose) 15 gm Q15M PRN PO DECREASED GLUCOSE; Start 10/02/18 at 22:00 Glucose (Glutose) 22.5 gm Q15M PRN PO DECREASED GLUCOSE; Start 10/02/18 at 22:00 Dextrose (D50w Syringe) 25 ml Q15M PRN IV DECREASED GLUCOSE Last administered on 10/07/18at 14:56; Admin Dose 25 ML; Start 10/02/18 at 22:00 Dextrose (D50w Syringe) 50 ml Q15M PRN IV DECREASED GLUCOSE; Start 10/02/18 at 22:00 Glucagon (Glucagen) 1 mg Q15M PRN IM DECREASED GLUCOSE; Start 10/02/18 at 22:00 Glucose (Glutose) 15 gm Q15M PRN BUCCAL DECREASED GLUCOSE; Start 10/02/18 at 22:00 Diagnostic Test (Pha) (Accu-Chek) 1 ea AC MEALS AND BEDTIME XX Last administered on 10/06/18 21:08; Admin Dose 1 EA; Start 10/03/18 at 17:05 Insulin Glargine (Lantus) 18 units DAILY@0800 SC Last administered on 10/07/18 08:38; Admin Dose 18 UNITS; Start 10/04/18 at 12:00 Insulin Aspart (Novolog Insulin Pen) 6 unit WITH MEALS SC Last administered on 10/07/18 17:03; Admin Dose 6 UNIT; Start 10/04/18 at 17:55 Calcium Carbonate (Tums) 500 mg Q4 PRN PO epigastric pain Last administered on 10/05/18at 01:34; Admin Dose 500 MG; Start 10/05/18 at 01:30 Ferric Sodium Gluconate Complex 125 mg/Sodium Chloride 110 ml @ 110 mls/hr DAILY@1300 IVPB Last administered on 10/07/18 12:13; Admin Dose 110 MLS/HR; Start 10/05/18 at 17:00; Stop 10/09/18 at 13:59 Pantoprazole (Protonix Tab) 40 mg DAILY@06 PO Last administered on 10/07/18 06:01; Admin Dose 40 MG; Start 10/06/18 at 06:00 Insulin Aspart (Novolog Insulin Pen) NOVOLOG *MODERATE* ALGORITHM WITH MEALS BEDTIME SC Last administered on 10/07/18 12:11; Admin Dose 4 UNIT; Start 10/06/18 at 21:00 WILLIAM QUINONES NP Oct 07, 2018 17:11
[2018-10-07 20:00] VITALS: BP 135/79; PULSE 96; RESP 19
[2018-10-07] MEDS: ATORVASTATIN 20 MG TAB PO SCH (21:04)
[2018-10-07] MEDS ORDERED: traZODone 50 MG TAB PO ONE (22:30)
[2018-10-08] MEDS: ACCU-CHEK XX SCH ×5 (02:00→20:34)
[2018-10-08 02:14] VITALS: BP 138/74; PULSE 96; RESP 18
[2018-10-08] MEDS: PANTOPRAZOLE (EC) 40 MG TAB PO SCH (06:04)
[2018-10-08 07:22] VITALS: BP 153/87; PULSE 94; RESP 18
[2018-10-08] MEDS: INSULIN ASPART [NOVOLOG] 3 ML PEN SC SCH ×7 (07:49→20:34)
[2018-10-08] MEDS: INSULIN GLARGINE [LANTus] (100 UNITS/ML) SYG SC SCH (07:50)
[2018-10-08] MEDS: BUSPIRONE 5 MG TAB PO SCH ×2 (08:04→20:30)
[2018-10-08] MEDS: DOCUSATE SODIUM 100 MG CAP PO SCH (08:04)
[2018-10-08] MEDS: LISINOPRIL 10 MG TAB PO SCH (08:04)
[2018-10-08] MEDS: traMADol 50 MG TAB PO PRN (08:04)
[2018-10-08] MEDS: ASPIRIN (EC) 81 MG TAB PO SCH (08:04)
[2018-10-08] MEDS: GABAPENTIN 300 MG CAP PO SCH ×3 (08:04→20:31)
[2018-10-08] MEDS: SOD FERRIC GLUC COMPLX 125 MG in SOD CHLORIDE 0.9% 100 ML IVPB SCH ×2 (12:09→14:31)
--- NOTE | 2018-10-08 13:47 | PN ---
Date/Time of Note Date/Time of Note DATE: 10/08/18 TIME: 13:45 Assessment/Plan VTE Prophylaxis Risk score (from Ns)>0 risk: 3 SCD applied (from [facility] [place] Yes SCD contraindicated: low risk/ambulating Pharmacological prophylaxis: NA/contraindicated Pharm contraindication: surgical contra Lines/Catheters IV Catheter Type (from [place]): Peripheral IV Urinary Cath still in place: No Assessment/Plan Hospital Course A/P 1. DKA versus hyperosmolar hyperglycemic state, stable improved continue insulin 2. Nonadherence status post counseling. Adjust insulin diet. 3. Abnormal LFTs/imaging. Potential abscess, patient agrees to aspiration therapy etc. 4. Homeless failure to thrive may need placement 5. Tobacco abuse, status post counseling offered patch 6. Bipolar disorder mod stable observe 7. Hepatic nodule? 8. Dyslipidemia/metabolic syndrome 9. Anemia combination iron deficiency and possible chronic stable observe. Patient refused EGD colonoscopy 10. Hypertension? 11. Subjective: No fever nausea vomiting toxicity, following commands. wants more food/ calories Objective: Vital signs stable Physical exam No pallor icterus adenopathy Regular Clear Benign nontender No edema Result Diagram: 10/08/18 0557 10/08/18 0557 Results 24hrs Laboratory Tests Test 10/07/18 13:47 10/07/18 14:54 10/07/18 15:10 10/07/18 15:43 Bedside Glucose 128 58 L 98 134 Test 10/07/18 17:01 10/07/18 21:02 10/08/18 05:57 10/08/18 07:30 Bedside Glucose 96 149 400 H White Blood Count 11.1 #H Red Blood Count 3.70 L Hemoglobin 8.5 L Hematocrit 28.2 L Mean Corpuscular 76.2 L Volume Mean Corpuscular 23.0 L Hemoglobin Mean Corpuscular 30.1 L Hemoglobin Concent Red Cell 14.8 H Distribution Width Platelet Count 310 # Mean Platelet Volume 10.3 Immature 6.700 H Granulocytes % Neutrophils % Segmented 68 Neutrophils % (Manual) Band Neutrophils % 5 H (Manual) Lymphocytes % Lymphocytes % 15 (Manual) Reactive Lymphocytes 1 H % (Manual) Monocytes % Monocytes % (Manual) 6 Eosinophils % Basophils % Basophils % (Manual) 1 Metamyelocytes % 2 H (manual) Myelocytes % 2 H (Manual) Nucleated Red Blood 0.2 H Cells % Immature 0.740 H Granulocytes # Neutrophils # Neutrophils # 7.6 H (Manual) Band Neutrophils # 0.5 Lymphocytes (Manual) 1.6 Lymphocytes # Reactive Lymphocytes 0.1 H # Monocytes # Monocytes # (Manual) 0.6 Eosinophils # Basophils # Basophils # (Manual) 0.1 H Metamyelocytes # 0.2 H Myelocytes # 0.2 H Nucleated Red Blood Cells # Platelet Estimate NORMAL Polychromasia 1+ Poikilocytosis 1+ Anisocytosis 1+ Microcytosis 1+ Macrocytosis 1+ Sodium Level 140 Potassium Level 3.7 Chloride Level 103 Carbon Dioxide Level 32 H Anion Gap 5 Blood Urea Nitrogen 14 Creatinine 0.45 L Est Glomerular > 60 Filtrat Rate mL/min Glucose Level 313 H Calcium Level 8.4 Phosphorus Level 2.7 Magnesium Level 1.6 L Test 10/08/18 10:54 Bedside Glucose 363 H Exam/Review of Systems Exam Vitals Vital Signs Date Temp Pulse Resp B/P (MAP) Pulse Ox O2 O2 Flow FiO2 Time Delivery Rate 10/08/18 97.9 94 18 153/87 96 07:22 (109) 10/07/18 Room Air 07:30 Intake and Output 10/07/18 10/07/18 10/08/18 1414:59 22:59 06:59 IntakeIntake Total 1600 ml 800 ml BalanceBalance 1600 ml 800 ml Results Results 24hrs Laboratory Tests Test 10/07/18 13:47 10/07/18 14:54 10/07/18 15:10 10/07/18 15:43 Bedside Glucose 128 58 L 98 134 Test 10/07/18 17:01 10/07/18 21:02 10/08/18 05:57 10/08/18 07:30 Bedside Glucose 96 149 400 H White Blood Count 11.1 #H Red Blood Count 3.70 L Hemoglobin 8.5 L Hematocrit 28.2 L Mean Corpuscular 76.2 L Volume Mean Corpuscular 23.0 L Hemoglobin Mean Corpuscular 30.1 L Hemoglobin Concent Red Cell 14.8 H Distribution Width Platelet Count 310 # Mean Platelet Volume 10.3 Immature 6.700 H Granulocytes % Neutrophils % Segmented 68 Neutrophils % (Manual) Band Neutrophils % 5 H (Manual) Lymphocytes % Lymphocytes % 15 (Manual) Reactive Lymphocytes 1 H % (Manual) Monocytes % Monocytes % (Manual) 6 Eosinophils % Basophils % Basophils % (Manual) 1 Metamyelocytes % 2 H (manual) Myelocytes % 2 H (Manual) Nucleated Red Blood 0.2 H Cells % Immature 0.740 H Granulocytes # Neutrophils # Neutrophils # 7.6 H (Manual) Band Neutrophils # 0.5 Lymphocytes (Manual) 1.6 Lymphocytes # Reactive Lymphocytes 0.1 H # Monocytes # Monocytes # (Manual) 0.6 Eosinophils # Basophils # Basophils # (Manual) 0.1 H Metamyelocytes # 0.2 H Myelocytes # 0.2 H Nucleated Red Blood Cells # Platelet Estimate NORMAL Polychromasia 1+ Poikilocytosis 1+ Anisocytosis 1+ Microcytosis 1+ Macrocytosis 1+ Sodium Level 140 Potassium Level 3.7 Chloride Level 103 Carbon Dioxide Level 32 H Anion Gap 5 Blood Urea Nitrogen 14 Creatinine 0.45 L Est Glomerular > 60 Filtrat Rate mL/min Glucose Level 313 H Calcium Level 8.4 Phosphorus Level 2.7 Magnesium Level 1.6 L Test 10/08/18 10:54 Bedside Glucose 363 H Medications Medication Current Medications Aspirin (Halfprin) 81 mg DAILY PO Last administered on 10/08/18 08:04; Admin Dose 81 MG; Start 10/02/18 at 09:00 Atorvastatin Calcium (Lipitor) 20 mg QHS PO Last administered on 10/07/18 21:04; Admin Dose 20 MG; Start 10/02/18 at 21:00 Buspirone HCl (Buspar) 5 mg BID PO Last administered on 10/08/18 08:04; Admin Dose 5 MG; Start 10/02/18 at 09:00 Docusate Sodium (Colace) 100 mg BID PO Last administered on 10/08/18 08:04; Admin Dose 100 MG; Start 10/02/18 at 09:00 Gabapentin (Neurontin) 300 mg TID PO Last administered on 10/08/18 12:09; Admin Dose 300 MG; Start 10/02/18 at 09:00 Lisinopril (Zestril) 10 mg DAILY PO Last administered on 10/08/18 08:04; Admin Dose 10 MG; Start 10/02/18 at 09:00 Ondansetron HCl (Zofran Inj) 4 mg Q6H PRN IV NAUSEA AND/OR VOMITING; Start 10/02/18 at 02:00 Albuterol (Proventil 0.083% (Neb)) 2.5 mg Q2H RESP THERAPY PRN NEB SHORTNESS OF BREATH; Start 10/02/18 at 02:00 Acetaminophen (Tylenol Liquid) 650 mg Q6H PRN PO PAIN LEVEL 1-3 OR FEVER Last administered on 10/05/18at 01:38; Admin Dose 650 MG; Start 10/02/18 at 02:00 Menthol/Methyl Salicylate (Memo Erazo) 1 applic TID PRN TOP pain; Start 10/02/18 at 06:30 Tramadol HCl (Ultram) 50 mg Q6H PRN PO MODERATE PAIN LEVEL 4-6 Last administered on 10/08/18 08:04; Admin Dose 50 MG; Start 10/02/18 at 11:00 Potassium Chloride 50 ml @ 50 mls/hr K PROTOCOL PRN IVPB PENDING LAB VALUE Last administered on 10/03/18 09:55; Admin Dose 50 MLS/HR; Start 10/02/18 at 11:30 Potassium Chloride (Potassium Chloride Pwd/Soln) 20 meq PER PROTOCOL PRN PO POTASSIUM REPLACEMENT PROTOCOL; Start 10/02/18 at 11:30 Potassium Chloride (Potassium Chloride Pwd/Soln) 30 meq PER PROTOCOL PRN PO POTASSIUM REPLACEMENT PROTOCOL; Start 10/02/18 at 11:30 Potassium Chloride (Potassium Chloride Pwd/Soln) 40 meq PER PROTOCOL PRN PO POTASSIUM REPLACEMENT PROTOCOL; Start 10/02/18 at 11:30 Diagnostic Test (Pha) (Accu-Chek) 1 ea 02 XX Last administered on 10/07/18at 01:23; Admin Dose 1 EA; Start 10/03/18 at 02:00 Miscellaneous Information 1 ea NOTE XX ; Start 10/02/18 at 22:00 Glucose (Glutose) 15 gm Q15M PRN PO DECREASED GLUCOSE; Start 10/02/18 at 22:00 Glucose (Glutose) 22.5 gm Q15M PRN PO DECREASED GLUCOSE; Start 10/02/18 at 22:00 Dextrose (D50w Syringe) 25 ml Q15M PRN IV DECREASED GLUCOSE Last administered on 10/07/18at 14:56; Admin Dose 25 ML; Start 10/02/18 at 22:00 Dextrose (D50w Syringe) 50 ml Q15M PRN IV DECREASED GLUCOSE; Start 10/02/18 at 22:00 Glucagon (Glucagen) 1 mg Q15M PRN IM DECREASED GLUCOSE; Start 10/02/18 at 22:00 Glucose (Glutose) 15 gm Q15M PRN BUCCAL DECREASED GLUCOSE; Start 10/02/18 at 22:00 Diagnostic Test (Pha) (Accu-Chek) 1 ea AC MEALS AND BEDTIME XX Last administe red on 10/08/18 11:02; Admin Dose 1 EA; Start 10/03/18 at 17:05 Insulin Glargine (Lantus) 18 units DAILY@0800 SC Last administered on 10/08/18 07:50; Admin Dose 18 UNITS; Start 10/04/18 at 12:00 Insulin Aspart (Novolog Insulin Pen) 6 unit WITH MEALS SC Last administered on 10/08/18 11:12; Admin Dose 6 UNIT; Start 10/04/18 at 17:55 Calcium Carbonate (Tums) 500 mg Q4 PRN PO epigastric pain Last administered on 10/05/18 01:34; Admin Dose 500 MG; Start 10/05/18 at 01:30 Ferric Sodium Gluconate Complex 125 mg/Sodium Chloride 110 ml @ 110 mls/hr DAILY@1300 IVPB Last administered on 10/07/18 12:13; Admin Dose 110 MLS/HR; Start 10/05/18 at 17:00; Stop 10/09/18 at 13:59 Pantoprazole (Protonix Tab) 40 mg DAILY@06 PO Last administered on 10/08/18 06:04; Admin Dose 40 MG; Start 10/06/18 at 06:00 Insulin Aspart (Novolog Insulin Pen) NOVOLOG *MODERATE* ALGORITHM WITH MEALS BEDTIME SC Last administered on 10/08/18 11:13; Admin Dose 12 UNIT; Start 10/06/18 at 21:00 MARKO PAYAN MD Oct 08, 2018 13:47
[2018-10-08 14:16] VITALS: BP 134/76; PULSE 98; RESP 18
[2018-10-08] MEDS: HYDROCODONE/APAP (10/325) TAB PO PRN ×2 (14:32→22:16)
[2018-10-08] MEDS: NICOTINE (14 MG/24 HR) PATCH TRANSDERM SCH (15:59)
[2018-10-08] MEDS: ATORVASTATIN 20 MG TAB PO SCH (20:30)
[2018-10-08] MEDS: LACTOBACILLUS RHAMNOSUS CAP PO SCH (20:31)
[2018-10-08] MEDS ORDERED: DOCUSATE SODIUM 100 MG CAP PO SCH (21:00)
[2018-10-09] MEDS: ACCU-CHEK XX SCH ×5 (02:00→21:00)
[2018-10-09 02:49] VITALS: BP 116/55; PULSE 105; RESP 18
[2018-10-09] MEDS: PANTOPRAZOLE (EC) 40 MG TAB PO SCH (05:27)
[2018-10-09 08:00] VITALS: BP 166/79; PULSE 104; RESP 18
[2018-10-09] MEDS: INSULIN GLARGINE [LANTus] (100 UNITS/ML) SYG SC SCH (08:09)
[2018-10-09] MEDS: INSULIN ASPART [NOVOLOG] 3 ML PEN SC SCH ×7 (08:09→21:00)
[2018-10-09] MEDS: BUSPIRONE 5 MG TAB PO SCH ×2 (09:10→20:51)
[2018-10-09] MEDS: HYDROCODONE/APAP (10/325) TAB PO PRN (09:11)
[2018-10-09] MEDS: LISINOPRIL 10 MG TAB PO SCH (09:11)
[2018-10-09] MEDS: GABAPENTIN 300 MG CAP PO SCH ×3 (09:11→20:51)
[2018-10-09] MEDS: LACTOBACILLUS RHAMNOSUS CAP PO SCH ×2 (09:11→20:51)
[2018-10-09] MEDS: NICOTINE (14 MG/24 HR) PATCH TRANSDERM SCH (09:11)
[2018-10-09] MEDS ORDERED: LOPERAMIDE 2 MG CAP PO PRN (12:11)
[2018-10-09] MEDS ORDERED: LOPERAMIDE 2 MG CAP ONE (12:12)
[2018-10-09] MEDS ORDERED: HYDROCODONE/APAP (10/325) TAB PO ONE (12:30)
[2018-10-09] MEDS: SOD FERRIC GLUC COMPLX 125 MG in SOD CHLORIDE 0.9% 100 ML IVPB SCH ×2 (13:00→16:21)
[2018-10-09] MEDS ORDERED: HYDROCORTISONE 25 MG SUPP PR PRN (13:30)
--- NOTE | 2018-10-09 13:41 | PN ---
Date/Time of Note Date/Time of Note DATE: 10/09/18 TIME: 13:22 Assessment/Plan VTE Prophylaxis Risk score (from Ns)>0 risk: 2 SCD applied (from [facility]): No SCD contraindicated: other (scds) Pharmacological prophylaxis: other (scds) Lines/Catheters [facility] (from [facility] Peripheral IV Urinary Cath still in place: No Assessment/Plan Hospital Course Assessment/Plan Assessment: Leukocytosis Microcytic hypochromic anemia- likely multifactorial -FBOT +, Repeat test is negative Elevated LFTs- with very elevated Alk phos Diarrhea - resolved -Stool cx- Coliform -C-diff negative Liver lesions x3 concerning for phelgmon/abscesses -Patient agrees to aspiration under imaging . Fatty liver Diabetes mellitus- with hyperglycemia-poorly controlled HTN Hyponatremia Bipolar disorder Homelessness Plan: PPI tx Aspiration/sampling today Pt now agreeable to EGD/colonoscopy will plan to move forward with procedures in near future Will order additional stool studies Patient seen in collaboration with Dr. Mai Subjective: Patient refused EGD/Colonoscopy.Now open to the idea. No over night events. Pt with increased WBC count today No c/o n./v or abd pain. HGB slowly trending down over the last 3 days PHYSICAL EXAMINATION: GENERAL: Alert & oriented x 3, in no acute distress SKIN: No lesions EYES: Pupils equal reactive to light, no discharge. EARS/NOSE AND THROAT: Ears normal, nose normal NECK: Supple. CHEST: Inspection within normal limits. CARDIOVASCULAR: Heart: Regular rate and rhythm RESPIRATORY: Lungs clear to auscultation GASTROINTESTINAL AND LIVER: Abdomen: Soft, non tenderness, non-distended, no hernias, no masses, no organomegaly, no ascites, no guarding, no rebound tenderness, normoactive bowel sounds. Rectal: Deferred. GENITOURINARY: Male genitalia within normal limits. EXTREMITIES: No cyanosis, clubbing or edema. Result Diagram: 10/09/18 1026 10/09/18 1026 Results 24hrs Laboratory Tests Test 10/08/18 17:04 10/08/18 20:33 10/09/18 07:41 10/09/18 10:26 Bedside Glucose 204 148 358 H White Blood Count 21.2 #H Red Blood Count 3.35 L Hemoglobin 8.0 L Hematocrit 25.8 L Mean Corpuscular 77.0 L Volume Mean Corpuscular 23.9 L Hemoglobin Mean Corpuscular 31.0 L Hemoglobin Concent Red Cell 15.0 H Distribution Width Platelet Count 367 Mean Platelet Volume 10.1 Immature 5.000 H Granulocytes % Neutrophils % 81.6 H Lymphocytes % 7.5 L Monocytes % 5.5 Eosinophils % 0.1 Basophils % 0.3 Nucleated Red Blood 0.0 Cells % Immature 1.070 H Granulocytes # Neutrophils # 17.3 H Lymphocytes # 1.6 Monocytes # 1.2 H Eosinophils # 0.0 Basophils # 0.1 Nucleated Red Blood 0.0 Cells # Prothrombin Time 12.6 Prothrombin Time 1.0 Ratio INR International 0.93 Normalized Ratio Activated 31.8 Partial Thromboplast Time Sodium Level 135 Potassium Level 3.3 L Chloride Level 97 Carbon Dioxide Level 29 Anion Gap 9 Blood Urea Nitrogen 19 Creatinine 0.46 L Est Glomerular > 60 Filtrat Rate mL/min Glucose Level 245 H Calcium Level 8.2 L Phosphorus Level 2.3 L Magnesium Level 1.5 L Total Bilirubin 0.1 L Direct Bilirubin 0.00 Indirect Bilirubin 0.1 Aspartate Amino 85 H Transf (AST/SGOT) Alanine 73 H Aminotransferase (AL T/SGPT) Alkaline Phosphatase 1001 H Total Protein 6.1 Albumin 2.8 L Globulin 3.30 H Albumin/Globulin 0.84 Ratio Thyroid Stimulating 2.020 Hormone (TSH) Test 10/09/18 11:52 Bedside Glucose 207 Exam/Review of Systems Exam Vitals Vital Signs Date Temp Pulse Resp B/P (MAP) Pulse Ox O2 O2 Flow FiO2 Time Delivery Rate 10/09/18 104 18 166/79 94 Room Air 08:00 (108) 10/09/18 98.3 02:49 Intake and Output 10/08/18 10/08/18 10/09/18 1515:00 23:00 07:00 IntakeIntake Total 3228 ml 500 ml OutputOutput Total 500 ml 2000 ml BalanceBalance 2728 ml -1500 ml Results Results 24hrs Laboratory Tests Test 10/08/18 17:04 10/08/18 20:33 10/09/18 07:41 10/09/18 10:26 Bedside Glucose 204 148 358 H White Blood Count 21.2 #H Red Blood Count 3.35 L Hemoglobin 8.0 L Hematocrit 25.8 L Mean Corpuscular 77.0 L Volume Mean Corpuscular 23.9 L Hemoglobin Mean Corpuscular 31.0 L Hemoglobin Concent Red Cell 15.0 H Distribution Width Platelet Count 367 Mean Platelet Volume 10.1 Immature 5.000 H Granulocytes % Neutrophils % 81.6 H Lymphocytes % 7.5 L Monocytes % 5.5 Eosinophils % 0.1 Basophils % 0.3 Nucleated Red Blood 0.0 Cells % Immature 1.070 H Granulocytes # Neutrophils # 17.3 H Lymphocytes # 1.6 Monocytes # 1.2 H Eosinophils # 0.0 Basophils # 0.1 Nucleated Red Blood 0.0 Cells # Prothrombin Time 12.6 Prothrombin Time 1.0 Ratio INR International 0.93 Normalized Ratio Activated 31.8 Partial Thromboplast Time Sodium Level 135 Potassium Level 3.3 L Chloride Level 97 Carbon Dioxide Level 29 Anion Gap 9 Blood Urea Nitrogen 19 Creatinine 0.46 L Est Glomerular > 60 Filtrat Rate mL/min Glucose Level 245 H Calcium Level 8.2 L Phosphorus Level 2.3 L Magnesium Level 1.5 L Total Bilirubin 0.1 L Direct Bilirubin 0.00 Indirect Bilirubin 0.1 Aspartate Amino 85 H Transf (AST/SGOT) Alanine 73 H Aminotransferase (AL T/SGPT) Alkaline Phosphatase 1001 H Total Protein 6.1 Albumin 2.8 L Globulin 3.30 H Albumin/Globulin 0.84 Ratio Thyroid Stimulating 2.020 Hormone (TSH) Test 10/09/18 11:52 Bedside Glucose 207 Medications Medication Current Medications Buspirone HCl (Buspar) 5 mg BID PO Last administered on 10/09/18 09:10; Admin Dose 5 MG; Start 10/02/18 at 09:00 Gabapentin (Neurontin) 300 mg TID PO Last administered on 10/09/18at 11:56; Admin Dose 300 MG; Start 10/02/18 at 09:00 Lisinopril (Zestril) 10 mg DAILY PO Last administered on 10/09/18 09:11; Admin Dose 10 MG; Start 10/02/18 at 09:00 Ondansetron HCl (Zofran Inj) 4 mg Q6H PRN IV NAUSEA AND/OR VOMITING; Start 10/02/18 at 02:00 Albuterol (Proventil 0.083% (Neb)) 2.5 mg Q2H RESP THERAPY PRN NEB SHORTNESS OF BREATH; Start 10/02/18 at 02:00 Acetaminophen (Tylenol Liquid) 650 mg Q6H PRN PO PAIN LEVEL 1-3 OR FEVER Last administered on 10/05/18at 01:38; Admin Dose 650 MG; Start 10/02/18 at 02:00 Menthol/Methyl Salicylate (Memo Erazo) 1 applic TID PRN TOP pain; Start 10/02/18 at 06:30 Tramadol HCl (Ultram) 50 mg Q6H PRN PO MODERATE PAIN LEVEL 4-6 Last administ ered on 10/08/18at 08:04; Admin Dose 50 MG; Start 10/02/18 at 11:00 Potassium Chloride 50 ml @ 50 mls/hr K PROTOCOL PRN IVPB PENDING LAB VALUE Last administered on 10/03/18at 09:55; Admin Dose 50 MLS/HR; Start 10/02/18 at 11:30 Potassium Chloride (Potassium Chloride Pwd/Soln) 20 meq PER PROTOCOL PRN PO POTASSIUM REPLACEMENT PROTOCOL; Start 10/02/18 at 11:30 Potassium Chloride (Potassium Chloride Pwd/Soln) 30 meq PER PROTOCOL PRN PO POTASSIUM REPLACEMENT PROTOCOL; Start 10/02/18 at 11:30 Potassium Chloride (Potassium Chloride Pwd/Soln) 40 meq PER PROTOCOL PRN PO POTASSIUM REPLACEMENT PROTOCOL; Start 10/02/18 at 11:30 Diagnostic Test (Pha) (Accu-Chek) 1 ea 02 XX Last administered on 10/07/18at 0 1:23; Admin Dose 1 EA; Start 10/03/18 at 02:00 Miscellaneous Information 1 ea NOTE XX ; Start 10/02/18 at 22:00 Glucose (Glutose) 15 gm Q15M PRN PO DECREASED GLUCOSE; Start 10/02/18 at 22:00 Glucose (Glutose) 22.5 gm Q15M PRN PO DECREASED GLUCOSE; Start 10/02/18 at 22:00 Dextrose (D50w Syringe) 25 ml Q15M PRN IV DECREASED GLUCOSE Last administered on 10/07/18at 14:56; Admin Dose 25 ML; Start 10/02/18 at 22:00 Dextrose (D50w Syringe) 50 ml Q15M PRN IV DECREASED GLUCOSE; Start 10/02/18 at 22:00 Glucagon (Glucagen) 1 mg Q15M PRN IM DECREASED GLUCOSE; Start 10/02/18 at 22:00 Glucose (Glutose) 15 gm Q15M PRN BUCCAL DECREASED GLUCOSE; Start 10/02/18 at 22:00 Diagnostic Test (Pha) (Accu-Chek) 1 ea AC MEALS AND BEDTIME XX Last administered on 10/09/18 11:53; Admin Dose 1 EA; Start 10/03/18 at 17:05 Insulin Glargine (Lantus) 18 units DAILY@0800 SC Last administered on 10/09/18 08:09; Admin Dose 18 UNITS; Start 10/04/18 at 12:00 Insulin Aspart (Novolog Insulin Pen) 6 unit WITH MEALS SC Last administered on 10/09/18 11:54; Admin Dose 6 UNIT; Start 10/04/18 at 17:55 Calcium Carbonate (Tums) 500 mg Q4 PRN PO epigastric pain Last administered on 10/05/18 01:34; Admin Dose 500 MG; Start 10/05/18 at 01:30 Ferric Sodium Gluconate Complex 125 mg/Sodium Chloride 110 ml @ 110 mls/hr DAILY@1300 IVPB Last administered on 10/08/18 14:31; Admin Dose 110 MLS/HR; Start 10/05/18 at 17:00; Stop 10/09/18 at 13:59 Pantoprazole (Protonix Tab) 40 mg DAILY@06 PO Last administered on 10/09/18 05:27; Admin Dose 40 MG; Start 10/06/18 at 06:00 Insulin Aspart (Novolog Insulin Pen) NOVOLOG *MODERATE* ALGORITHM WITH MEALS BEDTIME SC Last administered on 10/09/18 11:55; Admin Dose 4 UNIT; Start 10/06/18 at 21:00 Aspirin (Halfprin) 81 mg DAILY PO ; Start 10/12/18 at 09:00 Lactobacillus Acidophilus/ Rhamnosus (Culturelle) 1 cap BID PO Last administered on 10/09/18 09:11; Admin Dose 1 CAP; Start 10/08/18 at 21:00 Acetaminophen/ Hydrocodone Bitart ([place] (10/325)) 1 tab Q6H PRN PO SEVERE PAIN LEVEL 7-10 Last administered on 10/09/18 09:11; Admin Dose 1 TAB; Start 10/08/18 at 14:30 Nicotine (Nicoderm 14 Mg/ 24hr) 1 patch DAILY TRANSDERM Last administered on 10/09/18 09:11; Admin Dose 1 PATCH; Start 10/08/18 at 14:30 Loperamide HCl (Imodium Cap) 2 mg QID PRN PO DIARRHEA; Start 10/09/18 at 12:11 Atorvastatin Calcium (Lipitor) 20 mg QHS PO ; Start 10/15/18 at 21:00; Status UNV Hydrocortisone (Anusol-Hc Supp) 25 mg TID PRN NE HEMORROID PAIN/ITCHING; Start 10/09/18 at 13:30; Status UNV Potassium Chloride (Potassium Chloride Pwd/Soln) 20 meq DAILY PO ; Start 10/09/18 at 13:30; Status UNV Enoxaparin Sodium (Lovenox) 40 mg DAILY SC ; Start 10/10/18 at 09:00; Status UNV OLIVA BOWER Oct 09, 2018 13:32
--- NOTE | 2018-10-09 14:55 | PN ---
Date/Time of Note Date/Time of Note DATE: 10/09/18 TIME: 14:52 Assessment/Plan VTE Prophylaxis Risk score (from Ns)>0 risk: 2 SCD applied (from [facility] [place] No SCD contraindicated: low risk/ambulating Pharmacological prophylaxis: NA/contraindicated Pharm contraindication: surgical contra Lines/Catheters IV Catheter Type (from [facility]): Peripheral IV Urinary Cath still in place: No Assessment/Plan Hospital Course A/P 1. DKA vs hyperosmolar hyperglycemic state, stable/ improved continue insulin 2. Nonadherence status post multiple sessions of counseling. Adjust insulin diet. 3. Abn LFTs/imaging. Potential abscess, agrees to aspiration therapy etc. 4. Homeless failure to thrive, may need placement 5. Tobacco abuse, sp counseling offered patch 6. Bipolar disorder mod stable observe 7. Hepatic nodule? 8. Dyslipidemia/metabolic syndrome 9. Anemia combination iron deficiency and possible chronic stable observe. Patient refused EGD colonoscopy 10. Hypertension? 11. Diarrhea, c dif -vs 5days ago. DC senna/ Colace consider colono. Consider discontinuing Protonix. Subjective: 10/08 no fever nausea vomiting toxicity, following commands. wants more food/ calories 10/09; diarrhea; denies george abd pain. O: Vital signs stable Physical exam No pallor/ icterus Regular no mrg Clear Benign nt nd; no rrg No edema Result Diagram: 10/09/18 1026 10/09/18 1026 Results 24hrs Laboratory Tests Test 10/08/18 17:04 10/08/18 20:33 10/09/18 07:41 10/09/18 10:26 Bedside Glucose 204 148 358 H White Blood Count 21.2 #H Red Blood Count 3.35 L Hemoglobin 8.0 L Hematocrit 25.8 L Mean Corpuscular 77.0 L Volume Mean Corpuscular 23.9 L Hemoglobin Mean Corpuscular 31.0 L Hemoglobin Concent Red Cell 15.0 H Distribution Width Platelet Count 367 Mean Platelet Volume 10.1 Immature 5.000 H Granulocytes % Neutrophils % 81.6 H Lymphocytes % 7.5 L Monocytes % 5.5 Eosinophils % 0.1 Basophils % 0.3 Nucleated Red Blood 0.0 Cells % Immature 1.070 H Granulocytes # Neutrophils # 17.3 H Lymphocytes # 1.6 Monocytes # 1.2 H Eosinophils # 0.0 Basophils # 0.1 Nucleated Red Blood 0.0 Cells # Prothrombin Time 12.6 Prothrombin Time 1.0 Ratio INR International 0.93 Normalized Ratio Activated 31.8 Partial Thromboplast Time Sodium Level 135 Potassium Level 3.3 L Chloride Level 97 Carbon Dioxide Level 29 Anion Gap 9 Blood Urea Nitrogen 19 Creatinine 0.46 L Est Glomerular > 60 Filtrat Rate mL/min Glucose Level 245 H Calcium Level 8.2 L Phosphorus Level 2.3 L Magnesium Level 1.5 L Total Bilirubin 0.1 L Direct Bilirubin 0.00 Indirect Bilirubin 0.1 Aspartate Amino 85 H Transf (AST/SGOT) Alanine 73 H Aminotransferase (AL T/SGPT) Alkaline Phosphatase 1001 H Total Protein 6.1 Albumin 2.8 L Globulin 3.30 H Albumin/Globulin 0.84 Ratio Thyroid Stimulating 2.020 Hormone (TSH) Test 10/09/18 11:52 Bedside Glucose 207 Exam/Review of Systems Exam Vitals Vital Signs Date Temp Pulse Resp B/P (MAP) Pulse Ox O2 O2 Flow FiO2 Time Delivery Rate 10/09/18 104 18 166/79 94 Room Air 08:00 (108) 10/09/18 98.3 02:49 Intake and Output 10/08/18 10/08/18 10/09/18 1414:59 22:59 06:59 IntakeIntake Total 3228 ml 500 ml OutputOutput Total 500 ml 2000 ml BalanceBalance 2728 ml -1500 ml Results Results 24hrs Laboratory Tests Test 10/08/18 17:04 10/08/18 20:33 10/09/18 07:41 10/09/18 10:26 Bedside Glucose 204 148 358 H White Blood Count 21.2 #H Red Blood Count 3.35 L Hemoglobin 8.0 L Hematocrit 25.8 L Mean Corpuscular 77.0 L Volume Mean Corpuscular 23.9 L Hemoglobin Mean Corpuscular 31.0 L Hemoglobin Concent Red Cell 15.0 H Distribution Width Platelet Count 367 Mean Platelet Volume 10.1 Immature 5.000 H Granulocytes % Neutrophils % 81.6 H Lymphocytes % 7.5 L Monocytes % 5.5 Eosinophils % 0.1 Basophils % 0.3 Nucleated Red Blood 0.0 Cells % Immature 1.070 H Granulocytes # Neutrophils # 17.3 H Lymphocytes # 1.6 Monocytes # 1.2 H Eosinophils # 0.0 Basophils # 0.1 Nucleated Red Blood 0.0 Cells # Prothrombin Time 12.6 Prothrombin Time 1.0 Ratio INR International 0.93 Normalized Ratio Activated 31.8 Partial Thromboplast Time Sodium Level 135 Potassium Level 3.3 L Chloride Level 97 Carbon Dioxide Level 29 Anion Gap 9 Blood Urea Nitrogen 19 Creatinine 0.46 L Est Glomerular > 60 Filtrat Rate mL/min Glucose Level 245 H Calcium Level 8.2 L Phosphorus Level 2.3 L Magnesium Level 1.5 L Total Bilirubin 0.1 L Direct Bilirubin 0.00 Indirect Bilirubin 0.1 Aspartate Amino 85 H Transf (AST/SGOT) Alanine 73 H Aminotransferase (AL T/SGPT) Alkaline Phosphatase 1001 H Total Protein 6.1 Albumin 2.8 L Globulin 3.30 H Albumin/Globulin 0.84 Ratio Thyroid Stimulating 2.020 Hormone (TSH) Test 10/09/18 11:52 Bedside Glucose 207 Medications Medication Current Medications Buspirone HCl (Buspar) 5 mg BID PO Last administered on 10/09/18 09:10; Admin Dose 5 MG; Start 10/02/18 at 09:00 Gabapentin (Neurontin) 300 mg TID PO Last administered on 10/09/18 11:56; Admin Dose 300 MG; Start 10/02/18 at 09:00 Lisinopril (Zestril) 10 mg DAILY PO Last administered on 10/09/18 09:11; Admin Dose 10 MG; Start 10/02/18 at 09:00 Ondansetron HCl (Zofran Inj) 4 mg Q6H PRN IV NAUSEA AND/OR VOMITING; Start 10/02/18 at 02:00 Albuterol (Proventil 0.083% (Neb)) 2.5 mg Q2H RESP THERAPY PRN NEB SHORTNESS OF BREATH; Start 10/02/18 at 02:00 Acetaminophen (Tylenol Liquid) 650 mg Q6H PRN PO PAIN LEVEL 1-3 OR FEVER Last administered on 10/05/18 01:38; Admin Dose 650 MG; Start 10/02/18 at 02:00 Menthol/Methyl Salicylate (Memo Erazo) 1 applic TID PRN TOP pain; Start 10/02/18 at 06:30 Tramadol HCl (Ultram) 50 mg Q6H PRN PO MODERATE PAIN LEVEL 4-6 Last administered on 10/08/18 08:04; Admin Dose 50 MG; Start 10/02/18 at 11:00 Potassium Chloride 50 ml @ 50 mls/hr K PROTOCOL PRN IVPB PENDING LAB VALUE Last administered on 10/03/18at 09:55; Admin Dose 50 MLS/HR; Start 10/02/18 at 11:30 Potassium Chloride (Potassium Chloride Pwd/Soln) 20 meq PER PROTOCOL PRN PO POTASSIUM REPLACEMENT PROTOCOL; Start 10/02/18 at 11:30 Potassium Chloride (Potassium Chloride Pwd/Soln) 30 meq PER PROTOCOL PRN PO POTASSIUM REPLACEMENT PROTOCOL; Start 10/02/18 at 11:30 Potassium Chloride (Potassium Chloride Pwd/Soln) 40 meq PER PROTOCOL PRN PO POTASSIUM REPLACEMENT PROTOCOL; Start 10/02/18 at 11:30 Diagnostic Test (Pha) (Accu-Chek) 1 ea 02 XX Last administered on 10/07/18at 01:23; Admin Dose 1 EA; Start 10/03/18 at 02:00 Miscellaneous Information 1 ea NOTE XX ; Start 10/02/18 at 22:00 Glucose (Glutose) 15 gm Q15M PRN PO DECREASED GLUCOSE; Start 10/02/18 at 22:00 Glucose (Glutose) 22.5 gm Q15M PRN PO DECREASED GLUCOSE; Start 10/02/18 at 22:00 Dextrose (D50w Syringe) 25 ml Q15M PRN IV DECREASED GLUCOSE Last administered on 10/07/18at 14:56; Admin Dose 25 ML; Start 10/02/18 at 22:00 Dextrose (D50w Syringe) 50 ml Q15M PRN IV DECREASED GLUCOSE; Start 10/02/18 at 22:00 Glucagon (Glucagen) 1 mg Q15M PRN IM DECREASED GLUCOSE; Start 10/02/18 at 22:00 Glucose (Glutose) 15 gm Q15M PRN BUCCAL DECREASED GLUCOSE; Start 10/02/18 at 22:00 Diagnostic Test (Pha) (Accu-Chek) 1 ea AC MEALS AND BEDTIME XX Last administered on 10/09/18at 11:53; Admin Dose 1 EA; Start 10/03/18 at 17:05 Calcium Carbonate (Tums) 500 mg Q4 PRN PO epigastric pain Last administered on 10/05/18at 01:34; Admin Dose 500 MG; Start 10/05/18 at 01:30 Pantoprazole (Protonix Tab) 40 mg DAILY@06 PO Last administered on 10/09/18 05:27; Admin Dose 40 MG; Start 10/06/18 at 06:00 Insulin Aspart (Novolog Insulin Pen) NOVOLOG *MODERATE* ALGORITHM WITH MEALS BEDTIME SC Last administered on 10/09/18 11:55; Admin Dose 4 UNIT; Start 10/06/18 at 21:00 Aspirin (Halfprin) 81 mg DAILY PO ; Start 10/12/18 at 09:00 Lactobacillus Acidophilus/ Rhamnosus (Culturelle) 1 cap BID PO Last admi nistered on 10/09/18 09:11; Admin Dose 1 CAP; Start 10/08/18 at 21:00 Acetaminophen/ Hydrocodone Bitart ([place] (10/325)) 1 tab Q6H PRN PO SEVERE PAIN LEVEL 7-10 Last administered on 10/09/18 09:11; Admin Dose 1 TAB; Start 10/08/18 at 14:30 Nicotine (Nicoderm 14 Mg/ 24hr) 1 patch DAILY TRANSDERM Last administered on 10/09/18 09:11; Admin Dose 1 PATCH; Start 10/08/18 at 14:30 Loperamide HCl (Imodium Cap) 2 mg QID PRN PO DIARRHEA; Start 10/09/18 at 12:11 Atorvastatin Calcium (Lipitor) 20 mg QHS PO ; Start 10/15/18 at 21:00 Hydrocortisone (Anusol-Hc Supp) 25 mg TID PRN [place] HEMORROID PAIN/ITCHING; Start 10/09/18 at 13:30 Potassium Chloride (Potassium Chloride Pwd/Soln) 20 meq DAILY PO ; Start 10/09/18 at 13:30 Enoxaparin Sodium (Lovenox) 40 mg DAILY SC ; Start 10/10/18 at 09:00 Insulin Aspart (Novolog Insulin Pen) 9 unit WITH MEALS SC ; Start 10/09/18 at 18:00 Insulin Glargine (Lantus) 27 units DAILY@0800 SC ; Start 10/10/18 at 08:00 MARKO PAYAN MD Oct 09, 2018 14:55
[2018-10-09] MEDS: POTASSIUM CHLORIDE 20 MEQ POWDER FOR ORAL SOLN PO SCH (16:11)
[2018-10-09 19:57] VITALS: BP 153/80; PULSE 115; RESP 20
[2018-10-10 01:33] VITALS: BP 134/82; PULSE 108; RESP 18
[2018-10-10] MEDS: HYDROCODONE/APAP (10/325) TAB PO PRN (01:47)
[2018-10-10] MEDS: INSULIN ASPART [NOVOLOG] 3 ML PEN SC SCH ×9 (01:53→21:00)
[2018-10-10] MEDS: ACCU-CHEK XX SCH ×5 (02:00→21:35)
[2018-10-10] MEDS: PANTOPRAZOLE (EC) 40 MG TAB PO SCH (05:05)
[2018-10-10] MEDS: INSULIN GLARGINE [LANTus] (100 UNITS/ML) SYG SC SCH (08:21)
[2018-10-10] MEDS: LACTOBACILLUS RHAMNOSUS CAP PO SCH ×4 (08:26→22:20)
[2018-10-10] MEDS: BUSPIRONE 5 MG TAB PO SCH ×4 (08:26→22:20)
[2018-10-10] MEDS: GABAPENTIN 300 MG CAP PO SCH ×5 (08:26→22:20)
[2018-10-10] MEDS: POTASSIUM CHLORIDE 20 MEQ POWDER FOR ORAL SOLN PO SCH (08:26)
[2018-10-10] MEDS: ENOXAPARIN 40 MG/0.4 ML SYG SC SCH (08:26)
[2018-10-10] MEDS: NICOTINE (14 MG/24 HR) PATCH TRANSDERM SCH ×2 (08:27→09:00)
[2018-10-10] MEDS: LISINOPRIL 10 MG TAB PO SCH (08:27)
[2018-10-10] MEDS ORDERED: INSULIN GLARGINE [LANTus] (100 UNITS/ML) SYG SC ONE (09:30)
--- NOTE | 2018-10-10 16:40 | PN ---
Date/Time of Note Date/Time of Note DATE: 10/10/18 TIME: 16:38 Assessment/Plan VTE Prophylaxis Risk score (from Ns)>0 risk: 4 SCD applied (from Ns): No SCD contraindicated: low risk/ambulating Pharmacological prophylaxis: NA/contraindicated Pharm contraindication: low risk/ambulating Lines/Catheters [facility] [place] Urinary Cath still in place: No Assessment/Plan Hospital Course A/P 1. DKA vs hyperosmolar hyperglycemic state, stable/ improved continue insulin 2. Nonadherence status post multiple sessions of counseling. Adjust insulin diet. Definitely will be challenging/high risk of future DKA. 3. Abn LFTs/imaging. Potential abscess, sp aspiration, follow-up on cultures. May need PICC. 4. Homeless/ ftt, may need placement 5. Tobacco abuse, sp counseling offered patch 6. Bipolar dz/ mod stable observe 7. Hepatic nodule? 8. Dyslipidemia/metabolic syndrome 9. Anemia combination jolene and possible chr. stable observe. EGD/ colonoscopy results pending 10. Hypertension? 11. Diarrhea, c dif -vs 5days ago. DC senna/ Colace consider colono. Consider discontinuing Protonix. Subjective: 10/08 no fever nausea vomiting toxicity, following commands. wants more food/ calories 10/09; diarrhea; denies george abd pain. 10/10: No distress no events. O: Vital signs stable Physical exam No pallor/ icterus Regular no mrg Clear Benign nt nd; no rrg No edema Result Diagram: 10/10/18 0631 10/10/18 1411 Results 24hrs Laboratory Tests Test 10/09/18 20:41 10/09/18 20:57 10/09/18 20:58 10/10/18 01:38 Bedside Glucose 591 *H 135 493 *H Glucose Level 125 # Test 10/10/18 01:41 10/10/18 04:56 10/10/18 06:31 10/10/18 08:18 Bedside Glucose 307 H 305 H 412 *H White Blood Count 21.3 H Red Blood Count 3.40 L Hemoglobin 7.8 L Hematocrit 25.7 L Mean Corpuscular 75.6 L Volume Mean Corpuscular 22.9 L Hemoglobin Mean Corpuscular 30.4 L Hemoglobin Concent Red Cell 15.4 H Distribution Width Platelet Count 378 Mean Platelet Volume 10.0 Immature 1.500 H Granulocytes % Neutrophils % 83.2 H Lymphocytes % 8.0 L Monocytes % 7.0 Eosinophils % 0.1 Basophils % 0.2 Nucleated Red Blood 0.0 Cells % Immature 0.310 H Granulocytes # Neutrophils # 17.7 H Lymphocytes # 1.7 Monocytes # 1.5 H Eosinophils # 0.0 Basophils # 0.0 Nucleated Red Blood 0.0 Cells # Sodium Level 135 Potassium Level 3.6 Chloride Level 99 Carbon Dioxide Level 29 Anion Gap 7 Blood Urea Nitrogen 18 Creatinine 0.42 L Est Glomerular > 60 Filtrat Rate mL/min Glucose Level 340 #H Calcium Level 8.1 L Total Bilirubin 0.2 Direct Bilirubin 0.00 Indirect Bilirubin 0.2 Aspartate Amino 70 H Transf (AST/SGOT) Alanine 63 Aminotransferase (AL T/SGPT) Alkaline Phosphatase 1019 H Total Protein 5.9 L Albumin 2.8 L Globulin 3.10 Albumin/Globulin 0.90 Ratio Test 10/10/18 09:57 10/10/18 12:45 10/10/18 14:11 Bedside Glucose 287 H 161 Glucose Level 64 #L Exam/Review of Systems Exam Vitals Vital Signs Date Temp Pulse Resp B/P (MAP) Pulse Ox O2 O2 Flow FiO2 Time Delivery Rate 10/10/18 98.0 108 18 134/82 95 01:33 (99) 10/09/18 Room Air 08:00 Intake and Output 10/09/18 10/09/18 10/10/18 1515:00 23:00 07:00 IntakeIntake Total 1060 ml 1080 ml 1160 ml OutputOutput Total 950 ml 808 ml 1400 ml BalanceBalance 110 ml 272 ml -240 ml Results Results 24hrs Laboratory Tests Test 10/09/18 20:41 10/09/18 20:57 10/09/18 20:58 10/10/18 01:38 Bedside Glucose 591 *H 135 493 *H Glucose Level 125 # Test 10/10/18 01:41 10/10/18 04:56 10/10/18 06:31 10/10/18 08:18 Bedside Glucose 307 H 305 H 412 *H White Blood Count 21.3 H Red Blood Count 3.40 L Hemoglobin 7.8 L Hematocrit 25.7 L Mean Corpuscular 75.6 L Volume Mean Corpuscular 22.9 L Hemoglobin Mean Corpuscular 30.4 L Hemoglobin Concent Red Cell 15.4 H Distribution Width Platelet Count 378 Mean Platelet Volume 10.0 Immature 1.500 H Granulocytes % Neutrophils % 83.2 H Lymphocytes % 8.0 L Monocytes % 7.0 Eosinophils % 0.1 Basophils % 0.2 Nucleated Red Blood 0.0 Cells % Immature 0.310 H Granulocytes # Neutrophils # 17.7 H Lymphocytes # 1.7 Monocytes # 1.5 H Eosinophils # 0.0 Basophils # 0.0 Nucleated Red Blood 0.0 Cells # Sodium Level 135 Potassium Level 3.6 Chloride Level 99 Carbon Dioxide Level 29 Anion Gap 7 Blood Urea Nitrogen 18 Creatinine 0.42 L Est Glomerular > 60 Filtrat Rate mL/min Glucose Level 340 #H Calcium Level 8.1 L Total Bilirubin 0.2 Direct Bilirubin 0.00 Indirect Bilirubin 0.2 Aspartate Amino 70 H Transf (AST/SGOT) Alanine 63 Aminotransferase (AL T/SGPT) Alkaline Phosphatase 1019 H Total Protein 5.9 L Albumin 2.8 L Globulin 3.10 Albumin/Globulin 0.90 Ratio Test 10/10/18 09:57 10/10/18 12:45 10/10/18 14:11 Bedside Glucose 287 H 161 Glucose Level 64 #L Medications Medication Current Medications Buspirone HCl (Buspar) 5 mg BID PO Last administered on 10/10/18 08:26; Admin Dose 5 MG; Start 10/02/18 at 09:00 Gabapentin (Neurontin) 300 mg TID PO Last administered on 10/10/18 08:26; Admin Dose 300 MG; Start 10/02/18 at 09:00 Lisinopril (Zestril) 10 mg DAILY PO Last administered on 10/10/18 08:27; Admin Dose 10 MG; Start 10/02/18 at 09:00 Ondansetron HCl (Zofran Inj) 4 mg Q6H PRN IV NAUSEA AND/OR VOMITING; Start 10/02/18 at 02:00 Albuterol (Proventil 0.083% (Neb)) 2.5 mg Q2H RESP THERAPY PRN NEB SHORTNESS OF BREATH; Start 10/02/18 at 02:00 Acetaminophen (Tylenol Liquid) 650 mg Q6H PRN PO PAIN LEVEL 1-3 OR FEVER Last administered on 10/05/18at 01:38; Admin Dose 650 MG; Start 10/02/18 at 02:00 Menthol/Methyl Salicylate (Memo Erazo) 1 applic TID PRN TOP pain; Start 10/02/18 at 06:30 Tramadol HCl (Ultram) 50 mg Q6H PRN PO MODERATE PAIN LEVEL 4-6 Last administered on 10/08/18 08:04; Admin Dose 50 MG; Start 10/02/18 at 11:00 Potassium Chloride 50 ml @ 50 mls/hr K PROTOCOL PRN IVPB PENDING LAB VALUE Last administered on 10/03/18 09:55; Admin Dose 50 MLS/HR; Start 10/02/18 at 11:30 Potassium Chloride (Potassium Chloride Pwd/Soln) 20 meq PER PROTOCOL PRN PO POTASSIUM REPLACEMENT PROTOCOL; Start 10/02/18 at 11:30 Potassium Chloride (Potassium Chloride Pwd/Soln) 30 meq PER PROTOCOL PRN PO POTASSIUM REPLACEMENT PROTOCOL; Start 10/02/18 at 11:30 Potassium Chloride (Potassium Chloride Pwd/Soln) 40 meq PER PROTOCOL PRN PO POTASSIUM REPLACEMENT PROTOCOL; Start 10/02/18 at 11:30 Diagnostic Test (Pha) (Accu-Chek) 1 ea 02 XX Last administered on 10/07/18at 01:23; Admin Dose 1 EA; Start 10/03/18 at 02:00 Miscellaneous Information 1 ea NOTE XX ; Start 10/02/18 at 22:00 Glucose (Glutose) 15 gm Q15M PRN PO DECREASED GLUCOSE; Start 10/02/18 at 22:00 Glucose (Glutose) 22.5 gm Q15M PRN PO DECREASED GLUCOSE; Start 10/02/18 at 22:00 Dextrose (D50w Syringe) 25 ml Q15M PRN IV DECREASED GLUCOSE Last administered on 10/07/18at 14:56; Admin Dose 25 ML; Start 10/02/18 at 22:00 Dextrose (D50w Syringe) 50 ml Q15M PRN IV DECREASED GLUCOSE; Start 10/02/18 at 22:00 Glucagon (Glucagen) 1 mg Q15M PRN IM DECREASED GLUCOSE; Start 10/02/18 at 22:00 Glucose (Glutose) 15 gm Q15M PRN BUCCAL DECREASED GLUCOSE; Start 10/02/18 at 2 2:00 Diagnostic Test (Pha) (Accu-Chek) 1 ea AC MEALS AND BEDTIME XX Last administered on 10/10/18 11:30; Admin Dose 1 EA; Start 10/03/18 at 17:05 Calcium Carbonate (Tums) 500 mg Q4 PRN PO epigastric pain Last administered on 10/05/18 01:34; Admin Dose 500 MG; Start 10/05/18 at 01:30 Pantoprazole (Protonix Tab) 40 mg DAILY@06 PO Last administered on 10/10/18 05:05; Admin Dose 40 MG; Start 10/06/18 at 06:00 Aspirin (Halfprin) 81 mg DAILY PO ; Start 10/12/18 at 09:00 Lactobacillus Acidophilus/ Rhamnosus (Culturelle) 1 cap BID PO Last administered on 10/10/18 08:26; Admin Dose 1 CAP; Start 10/08/18 at 21:00 Acetaminophen/ Hydrocodone Bitart ([place] (10/325)) 1 tab Q6H PRN PO SEVERE PAIN LEVEL 7-10 Last administered on 10/10/18 01:47; Admin Dose 1 TAB; Start 10/08/18 at 14:30 Nicotine (Nicoderm 14 Mg/ 24hr) 1 patch DAILY TRANSDERM Last administered on 10/10/18 08:27; Admin Dose 1 PATCH; Start 10/08/18 at 14:30 Loperamide HCl (Imodium Cap) 2 mg QID PRN PO DIARRHEA; Start 10/09/18 at 12:11 Atorvastatin Calcium (Lipitor) 20 mg QHS PO ; Start 10/15/18 at 21:00 Hydrocortisone (Anusol-Hc Supp) 25 mg TID PRN [place] HEMORROID PAIN/ITCHING; Start 10/09/18 at 13:30 Potassium Chloride (Potassium Chloride Pwd/Soln) 20 meq DAILY PO Last administered on 10/10/18 08:26; Admin Dose 20 MEQ; Start 10/09/18 at 13:30 Enoxaparin Sodium (Lovenox) 40 mg DAILY SC Last administered on 10/10/18at 0 8:26; Admin Dose 40 MG; Start 10/10/18 at 09:00 Insulin Aspart (Novolog Insulin Pen) 9 unit WITH MEALS SC Last administered on 10/10/18 12:48; Admin Dose 9 UNIT; Start 10/09/18 at 18:00 Insulin Glargine (Lantus) 27 units DAILY@0800 SC Last administered on 10/10/18at 08:21; Admin Dose 27 UNITS; Start 10/10/18 at 08:00 Insulin Aspart (Novolog Insulin Pen) NOVOLOG *MODERATE* ALG[place]I... Q4 SC Last administered on 10/10/18at 12:49; Admin Dose 2 UNIT; Start 10/10/18 at 01:00 Meropenem/Sodium Chloride 50 ml @ 100 mls/hr Q12 IVPB ; Start 10/10/18 at 21:00 MARKO PAYAN MD Oct 10, 2018 16:40
[2018-10-10] MEDS: MAGNESIUM CITRATE 300 ML BTL PO ONE ×2 (17:30→21:35)
--- NOTE | 2018-10-10 17:40 | PN ---
Date/Time of Note Date/Time of Note DATE: 10/10/18 TIME: 17:31 Assessment/Plan VTE Prophylaxis Risk score (from Ns)>0 risk: 4 SCD applied (from Ns): No SCD contraindicated: other (scds) Pharmacological prophylaxis: other (scds) Lines/Catheters IV Catheter Type (from [facility]): Saline Lock Urinary Cath still in place: No Reason Cath still needed: other (indicate) Assessment/Plan Hospital Course Assessment/Plan Assessment: Leukocytosis Microcytic hypochromic anemia- likely multifactorial -FBOT +, Repeat test is negative Elevated LFTs- with very elevated Alk phos -MRCP shows normal CBD Diarrhea - resolved -Stool cx- Coliform -C-diff negative Liver lesions x3 concerning for phelgmon/abscesses -Successful CT guided liver abscess aspiration. Due to small size of the abscess no catheter was placed. -Preliminary results show gram neg rods- pt on abx Fatty liver Diabetes mellitus- with hyperglycemia-poorly controlled HTN Hyponatremia Bipolar disorder Homelessness Plan: PPI tx S/p Successful CT guided liver abscess aspiration. Due to small size of the abscess no catheter was placed. Pt now agreeable to EGD/colonoscopy will plan to move forward with procedures tomorrow Stool studies- pending Patient seen in collaboration with Dr. Mai Subjective: Patient refused EGD/Colonoscopy, now would like to proceed with procedures No over night events. WBC count remains elevated No c/o n/v or abdominal pain. HGB slowly trending down over the last 3 days PHYSICAL EXAMINATION: GENERAL: Alert & oriented x 3, agitated SKIN: No lesions EYES: Pupils equal reactive to light, no discharge. EARS/NOSE AND THROAT: Ears normal, nose normal NECK: Supple. CHEST: Inspection within normal limits. CARDIOVASCULAR: Heart: Regular rate and rhythm RESPIRATORY: Lungs clear to auscultation GASTROINTESTINAL AND LIVER: Abdomen: Soft, non tenderness, non-distended, no hernias, no masses, no organomegaly, no ascites, no guarding, no rebound ten derness, normoactive bowel sounds. Rectal: Deferred. GENITOURINARY: Male genitalia within normal limits. EXTREMITIES: No cyanosis, clubbing or edema. Result Diagram: 10/10/18 0631 10/10/18 1411 Results 24hrs Laboratory Tests Test 10/09/18 20:41 10/09/18 20:57 10/09/18 20:58 10/10/18 01:38 Bedside Glucose 591 *H 135 493 *H Glucose Level 125 # Test 10/10/18 01:41 10/10/18 04:56 10/10/18 06:31 10/10/18 08:18 Bedside Glucose 307 H 305 H 412 *H White Blood Count 21.3 H Red Blood Count 3.40 L Hemoglobin 7.8 L Hematocrit 25.7 L Mean Corpuscular 75.6 L Volume Mean Corpuscular 22.9 L Hemoglobin Mean Corpuscular 30.4 L Hemoglobin Concent Red Cell 15.4 H Distribution Width Platelet Count 378 Mean Platelet Volume 10.0 Immature 1.500 H Granulocytes % Neutrophils % 83.2 H Lymphocytes % 8.0 L Monocytes % 7.0 Eosinophils % 0.1 Basophils % 0.2 Nucleated Red Blood 0.0 Cells % Immature 0.310 H Granulocytes # Neutrophils # 17.7 H Lymphocytes # 1.7 Monocytes # 1.5 H Eosinophils # 0.0 Basophils # 0.0 Nucleated Red Blood 0.0 Cells # Sodium Level 135 Potassium Level 3.6 Chloride Level 99 Carbon Dioxide Level 29 Anion Gap 7 Blood Urea Nitrogen 18 Creatinine 0.42 L Est Glomerular > 60 Filtrat Rate mL/min Glucose Level 340 #H Calcium Level 8.1 L Total Bilirubin 0.2 Direct Bilirubin 0.00 Indirect Bilirubin 0.2 Aspartate Amino 70 H Transf (AST/SGOT) Alanine 63 Aminotransferase (AL T/SGPT) Alkaline Phosphatase 1019 H Total Protein 5.9 L Albumin 2.8 L Globulin 3.10 Albumin/Globulin 0.90 Ratio Test 10/10/18 09:57 10/10/18 12:45 10/10/18 14:11 Bedside Glucose 287 H 161 Glucose Level 64 #L Exam/Review of Systems Exam Vitals Vital Signs Date Temp Pulse Resp B/P (MAP) Pulse Ox O2 O2 Flow FiO2 Time Delivery Rate 10/10/18 98.0 108 18 134/82 95 01:33 (99) 10/09/18 Room Air 08:00 Intake and Output 10/09/18 10/09/18 10/10/18 1414:59 22:59 06:59 IntakeIntake Total 1060 ml 1080 ml 1160 ml OutputOutput Total 950 ml 808 ml 1400 ml BalanceBalance 110 ml 272 ml -240 ml Results Results 24hrs Laboratory Tests Test 10/09/18 20:41 10/09/18 20:57 10/09/18 20:58 10/10/18 01:38 Bedside Glucose 591 *H 135 493 *H Glucose Level 125 # Test 10/10/18 01:41 10/10/18 04:56 10/10/18 06:31 10/10/18 08:18 Bedside Glucose 307 H 305 H 412 *H White Blood Count 21.3 H Red Blood Count 3.40 L Hemoglobin 7.8 L Hematocrit 25.7 L Mean Corpuscular 75.6 L Volume Mean Corpuscular 22.9 L Hemoglobin Mean Corpuscular 30.4 L Hemoglobin Concent Red Cell 15.4 H Distribution Width Platelet Count 378 Mean Platelet Volume 10.0 Immature 1.500 H Granulocytes % Neutrophils % 83.2 H Lymphocytes % 8.0 L Monocytes % 7.0 Eosinophils % 0.1 Basophils % 0.2 Nucleated Red Blood 0.0 Cells % Immature 0.310 H Granulocytes # Neutrophils # 17.7 H Lymphocytes # 1.7 Monocytes # 1.5 H Eosinophils # 0.0 Basophils # 0.0 Nucleated Red Blood 0.0 Cells # Sodium Level 135 Potassium Level 3.6 Chloride Level 99 Carbon Dioxide Level 29 Anion Gap 7 Blood Urea Nitrogen 18 Creatinine 0.42 L Est Glomerular > 60 Filtrat Rate mL/min Glucose Level 340 #H Calcium Level 8.1 L Total Bilirubin 0.2 Direct Bilirubin 0.00 Indirect Bilirubin 0.2 Aspartate Amino 70 H Transf (AST/SGOT) Alanine 63 Aminotransferase (AL T/SGPT) Alkaline Phosphatase 1019 H Total Protein 5.9 L Albumin 2.8 L Globulin 3.10 Albumin/Globulin 0.90 Ratio Test 10/10/18 09:57 10/10/18 12:45 10/10/18 14:11 Bedside Glucose 287 H 161 Glucose Level 64 #L Medications Medication Current Medications Buspirone HCl (Buspar) 5 mg BID PO Last administered on 10/10/18 08:26; Admin Dose 5 MG; Start 10/02/18 at 09:00 Gabapentin (Neurontin) 300 mg TID PO Last administered on 10/10/18 08:26; Admin Dose 300 MG; Start 10/02/18 at 09:00 Lisinopril (Zestril) 10 mg DAILY PO Last administered on 10/10/18 08:27; Admin Dose 10 MG; Start 10/02/18 at 09:00 Ondansetron HCl (Zofran Inj) 4 mg Q6H PRN IV NAUSEA AND/OR VOMITING; Start 10/02/18 at 02:00 Albuterol (Proventil 0.083% (Neb)) 2.5 mg Q2H RESP THERAPY PRN NEB SHORTNESS OF BREATH; Start 10/02/18 at 02:00 Acetaminophen (Tylenol Liquid) 650 mg Q6H PRN PO PAIN LEVEL 1-3 OR FEVER Last administered on 10/05/18at 01:38; Admin Dose 650 MG; Start 10/02/18 at 02:00 Menthol/Methyl Salicylate (Memo Erazo) 1 applic TID PRN TOP pain; Start 10/02/18 at 06:30 Tramadol HCl (Ultram) 50 mg Q6H PRN PO MODERATE PAIN LEVEL 4-6 Last administered on 10/08/18at 08:04; Admin Dose 50 MG; Start 10/02/18 at 11:00 Potassium Chloride 50 ml @ 50 mls/hr K PROTOCOL PRN IVPB PENDING LAB VALUE Last administered on 10/03/18at 09:55; Admin Dose 50 MLS/HR; Start 10/02/18 at 11:30 Potassium Chloride (Potassium Chloride Pwd/Soln) 20 meq PER PROTOCOL PRN PO POTASSIUM REPLACEMENT PROTOCOL; Start 10/02/18 at 11:30 Potassium Chloride (Potassium Chloride Pwd/Soln) 30 meq PER PROTOCOL PRN PO POTASSIUM REPLACEMENT PROTOCOL; Start 10/02/18 at 11:30 Potassium Chloride (Potassium Chloride Pwd/Soln) 40 meq PER PROTOCOL PRN PO POTASSIUM REPLACEMENT PROTOCOL; Start 10/02/18 at 11:30 Diagnostic Test (Pha) (Accu-Chek) 1 ea 02 XX Last administered on 10/07/18at 01:23; Admin Dose 1 EA; Start 10/03/18 at 02:00 Miscellaneous Information 1 ea NOTE XX ; Start 10/02/18 at 22:00 Glucose (Glutose) 15 gm Q15M PRN PO DECREASED GLUCOSE; Start 10/02/18 at 22:00 Glucose (Glutose) 22.5 gm Q15M PRN PO DECREASED GLUCOSE; Start 10/02/18 at 22:00 Dextrose (D50w Syringe) 25 ml Q15M PRN IV DECREASED GLUCOSE Last administered on 10/07/18 14:56; Admin Dose 25 ML; Start 10/02/18 at 22:00 Dextrose (D50w Syringe) 50 ml Q15M PRN IV DECREASED GLUCOSE; Start 10/02/18 at 22:00 Glucagon (Glucagen) 1 mg Q15M PRN IM DECREASED GLUCOSE; Start 10/02/18 at 22:00 Glucose (Glutose) 15 gm Q15M PRN BUCCAL DECREASED GLUCOSE; Start 10/02/18 at 22:00 Diagnostic Test (Pha) (Accu-Chek) 1 ea AC MEALS AND BEDTIME XX Last administered on 10/10/18 11:30; Admin Dose 1 EA; Start 10/03/18 at 17:05 Calcium Carbonate (Tums) 500 mg Q4 PRN PO epigastric pain Last administered on 10/05/18 01:34; Admin Dose 500 MG; Start 10/05/18 at 01:30 Pantoprazole (Protonix Tab) 40 mg DAILY@06 PO Last administered on 10/10/18 05:05; Admin Dose 40 MG; Start 10/06/18 at 06:00 Aspirin (Halfprin) 81 mg DAILY PO ; Start 10/12/18 at 09:00 Lactobacillus Acidophilus/ Rhamnosus (Culturelle) 1 cap BID PO Last administered on 10/10/18 08:26; Admin Dose 1 CAP; Start 10/08/18 at 21:00 Acetaminophen/ Hydrocodone Bitart ([place] (10/325)) 1 tab Q6H PRN PO SEVERE PAIN LEVEL 7-10 Last administered on 10/10/18 01:47; Admin Dose 1 TAB; Start 10/08/18 at 14:30 Nicotine (Nicoderm 14 Mg/ 24hr) 1 patch DAILY TRANSDERM Last administered on 10/10/18 08:27; Admin Dose 1 PATCH; Start 10/08/18 at 14:30 Loperamide HCl (Imodium Cap) 2 mg QID PRN PO DIARRHEA; Start 10/09/18 at 12:11 Atorvastatin Calcium (Lipitor) 20 mg QHS PO ; Start 10/15/18 at 21:00 Hydrocortisone (Anusol-Hc Supp) 25 mg TID PRN [place] HEMORROID PAIN/ITCHING; Start 10/09/18 at 13:30 Potassium Chloride (Potassium Chloride Pwd/Soln) 20 meq DAILY PO Last administered on 10/10/18 08:26; Admin Dose 20 MEQ; Start 10/09/18 at 13:30 Enoxaparin Sodium (Lovenox) 40 mg DAILY SC Last administered on 10/10/18 08:26; Admin Dose 40 MG; Start 10/10/18 at 09:00 Insulin Aspart (Novolog Insulin Pen) 9 unit WITH MEALS SC Last administered on 10/10/18 12:48; Admin Dose 9 UNIT; Start 10/09/18 at 18:00 Insulin Glargine (Lantus) 27 units DAILY@0800 SC Last administered on 10/10/18 08:21; Admin Dose 27 UNITS; Start 10/10/18 at 08:00 Insulin Aspart (Novolog Insulin Pen) NOVOLOG *MODERATE* [place]... Q4 SC Last administered on 10/10/18 12:49; Admin Dose 2 UNIT; Start 10/10/18 at 01:00 Meropenem/Sodium Chloride 50 ml @ 100 mls/hr Q12 IVPB ; Start 10/10/18 at 21:00 OLIVA BOWER Oct 10, 2018 17:40
[2018-10-10] MEDS: BISACODYL (EC) 5 MG TAB PO ONE ×2 (18:00→21:35)
[2018-10-10] MEDS ORDERED: POLYETHYLENE GLYCOL 3350 119 GM POWDER PO ONE (18:30)
[2018-10-10 20:00] VITALS: BP 152/97; PULSE 87; RESP 19
[2018-10-10] MEDS: MEROPENEM 1 GM/50ML(PMX) 50 ML IVPB SCH ×3 (21:00→22:23)
--- NOTE | 2018-10-10 21:26 | CONS ---
DATE OF ADMISSION: 10/02/2018 DATE OF CONSULTATION: 10/10/2018 TYPE OF CONSULTATION: Infectious Disease. REASON FOR CONSULTATION: Antibiotic management. HISTORY OF PRESENT ILLNESS: Carlos Andino is a 63-year-old male who was brought in with fever and chills for 2 or 3 days prior to admission. His past problems include: 1. Adult-onset diabetes mellitus. 2. Bipolar disorder 3. PTSD. 4. Hypertension 5. Hypercholesterolemia. 6. Cocaine and methamphetamine abuse. On admission, his white count was 9.2, H and H of 9.7 and 33, platelet count of , glucose was 82 3 mg percent. Urinalysis was negative for leukocyte esterase. The patient was placed on vancomycin and cefepime, also was on Zosyn on admission. He was felt to be in septic shock or at least to be se ptic. The patient had severe hyperglycemia. No evidence of diabetic ketoacidosis. HOSPITAL COURSE: The patient was seen by Paige Eaton for GI. The patient is bipolar, homeles s. Colonoscopy was scheduled. Seen by Dr. Nunez, low iron saturation in the setting of high ferrit in and low total iron most consistent with anemia of chronic inflammation as well as a component of i burak deficiency, needs a GI evaluation. The patient refused EGD and colonoscopy. Currently hyperosmo lar state improved on insulin nonadherence, status post multiple sessions of counseling, abnormal LFT s. On the , his white count was 21.2, H and H of 8 and 25.8, platelet count 367,000. PHYSICAL EXAMINATION: GENERAL: The patient is awake, responsive, in no acute distress. VITAL SIGNS: Stable. He is afebrile. SKIN: Without generalized rash. HEENT: Within normal limits. NECK: Supple. LYMPH NODES: None palpable. CHEST: Decreased breath sounds at the bases. HEART: Without murmur or gallop. ABDOMEN: Soft, nontender, without organosplenomegaly or masses. EXTREMITIES: Without cyanosis, clubbing, or edema. RECTAL AND GENITAL: Deferred. NEUROLOGIC: No focal neurological abnormality. IMPRESSION AND PLAN: A paracentesis, I believe was done. There was an abscess drained by CT scan. Successful CT-guided liver abscess aspiration due to small size of the abscess. No catheter was plac ed. An abdominal MRI at least 3 small liver lesions were concerning for phlegmon and abscess. Recom mend aspiration sampling under imaging guidance, which was done. The patient should be on meropenem. We will place the patient on meropenem for the time being and await further results. I will dictat e my findings to the hospitalist. Dictated By: HOOD OLIVA MD, JD/NTS Conf#: [id number] DID#: [id number] CC: TAI LOREDO MD;*EndCC*
[2018-10-10] MEDS: ACETAMINOPHEN 650MG/20.3ML CUP PO PRN (21:38)
[2018-10-11] MEDS: INSULIN ASPART [NOVOLOG] 3 ML PEN SC SCH ×9 (01:00→21:00)
[2018-10-11] MEDS: ACCU-CHEK XX SCH ×5 (02:00→21:00)
[2018-10-11 02:25] VITALS: BP 183/76; PULSE 119; RESP 18
[2018-10-11 04:13] VITALS: BP 156/68; PULSE 125
[2018-10-11] MEDS ORDERED: SOD CHLORIDE 0.9% 500 ML IV ONE (04:30)
[2018-10-11] MEDS: PANTOPRAZOLE (EC) 40 MG TAB PO SCH (05:41)
[2018-10-11] MEDS ORDERED: POLYETHYLENE GLYCOL 3350 119 GM POWDER PO ONE ×2 (06:00→18:30)
[2018-10-11 06:58] VITALS: PULSE 117
[2018-10-11 08:00] VITALS: BP 162/74; PULSE 113; RESP 18
[2018-10-11] MEDS ORDERED: BISACODYL (EC) 5 MG TAB PO ONE ×2 (08:00→13:30)
[2018-10-11] MEDS: ENOXAPARIN 40 MG/0.4 ML SYG SC SCH (08:19)
[2018-10-11] MEDS: INSULIN GLARGINE [LANTus] (100 UNITS/ML) SYG SC SCH (08:20)
[2018-10-11] MEDS: NICOTINE (14 MG/24 HR) PATCH TRANSDERM SCH (08:25)
[2018-10-11] MEDS: ACETAMINOPHEN 650MG/20.3ML CUP PO PRN ×2 (08:33→21:33)
[2018-10-11] MEDS: POTASSIUM CHLORIDE 20 MEQ POWDER FOR ORAL SOLN PO SCH (08:33)
[2018-10-11] MEDS: LISINOPRIL 10 MG TAB PO SCH (08:34)
[2018-10-11] MEDS: MEROPENEM 1 GM/50ML(PMX) 50 ML IVPB SCH ×2 (08:35→21:33)
[2018-10-11] MEDS: LACTOBACILLUS RHAMNOSUS CAP PO SCH ×2 (08:36→21:33)
[2018-10-11] MEDS: GABAPENTIN 300 MG CAP PO SCH ×3 (08:36→21:33)
--- NOTE | 2018-10-11 10:39 | CONS ---
Assessment/Plan Assessment/Plan Hospital Course (Demo Recall) #Anemia -pt has a low iron saturation in the setting of a high ferritin and low TIBC. This is most consistent with anemia of chronic inflammation as well as a component of iron deficiency -pt definitely needs GI eval for iron deficiency anemia. he is currently refusing the bowel prep -his chronic inflammation is likely from his uncontrolled diabetes -he is already s/p 5 days of IV iron but we will order another 5 days given he remains so iron deficient -ok to transfuse at this time -mildly high LDH with normal haptoglobin rules out hemolysis. If patient did have hemolysis, his haptoglobin would be undetectable #DM -continue insulin per primary team #Bipolar -continue mood stabilizers Consultation Date/Type/Reason Admit Date/Time Oct 02, 2018 at 00:05 Initial Consult Date 10/04/18 Type of Consult Hematology Reason for Consultation anemia Requesting Provider: HERRERA SALDAÑA NP Date/Time of Note DATE: 10/11/18 TIME: 10:06 24 HR Interval Summary Free Text/Dictation pt continues to refuse the bowl prep Exam/Review of Systems Exam Vitals Vital Signs Date Temp Pulse Resp B/P (MAP) Pulse Ox O2 O2 Flow FiO2 Time Delivery Rate 10/11/18 99.9 08:33 10/11/18 113 18 162/74 98 Room Air 08:00 (103) Intake and Output 10/10/18 10/10/18 10/11/18 1515:00 23:00 07:00 IntakeIntake Total 680 ml 820 ml 550 ml OutputOutput Total 1800 ml BalanceBalance -1120 ml 820 ml 550 ml Constitutional: alert, oriented Psych: anxiety, depression Head: normocephalic Eyes: nl conjunctiva ENMT: nl external ears & nose Neck: supple Respiratory: clear to auscultation Cardiovascular: regular rate and rhythm Gastrointestinal: soft Extremities: normal pulses Results Result Diagram: 10/11/18 0716 10/11/18 0716 Results 24hrs Laboratory Tests Test 10/10/18 12:45 10/10/18 14:11 10/10/18 17:24 10/10/18 21:31 Bedside Glucose 161 83 68 L Glucose Level 64 #L Test 10/10/18 22:25 10/11/18 05:32 10/11/18 07:16 10/11/18 08:11 Bedside Glucose 108 121 161 White Blood Count 17.1 H Red Blood Count 3.22 L Hemoglobin 7.5 L Hematocrit 24.2 L Mean Corpuscular 75.2 L Volume Mean Corpuscular 23.3 L Hemoglobin Mean Corpuscular 31.0 L Hemoglobin Concent Red Cell 14.9 H Distribution Width Platelet Count 347 Mean Platelet Volume 9.1 Immature 1.800 H Granulocytes % Neutrophils % 89.0 H Lymphocytes % 4.4 L Monocytes % 4.6 Eosinophils % 0.0 Basophils % 0.2 Nucleated Red Blood 0.0 Cells % Immature 0.300 H Granulocytes # Neutrophils # 15.3 H Lymphocytes # 0.8 Monocytes # 0.8 Eosinophils # 0.0 Basophils # 0.0 Nucleated Red Blood 0.0 Cells # Sodium Level 131 L Potassium Level 3.2 L Chloride Level 92 L Carbon Dioxide Level 29 Anion Gap 10 Blood Urea Nitrogen 12 Creatinine 0.46 L Est Glomerular > 60 Filtrat Rate mL/min Glucose Level 132 # Calcium Level 7.6 L Total Bilirubin 0.7 Direct Bilirubin 0.00 Indirect Bilirubin 0.7 Aspartate Amino 77 H Transf (AST/SGOT) Alanine 59 Aminotransferase (AL T/SGPT) Alkaline Phosphatase 860 H Total Protein 5.9 L Albumin 2.6 L Globulin 3.30 H Albumin/Globulin 0.78 Ratio Medications Medication Current Medications Buspirone HCl (Buspar) 5 mg BID PO Last administered on 10/10/18at 22:20; Admin Dose 5 MG; Start 10/02/18 at 09:00 Gabapentin (Neurontin) 300 mg TID PO Last administered on 10/11/18at 08:36; Admin Dose 300 MG; Start 10/02/18 at 09:00 Lisinopril (Zestril) 10 mg DAILY PO Last administered on 10/11/18at 08:34; Admin Dose 10 MG; Start 10/02/18 at 09:00 Ondansetron HCl (Zofran Inj) 4 mg Q6H PRN IV NAUSEA AND/OR VOMITING; Start 10/02/18 at 02:00 Albuterol (Proventil 0.083% (Neb)) 2.5 mg Q2H RESP THERAPY PRN NEB SHORTNESS OF BREATH; Start 10/02/18 at 02:00 Acetaminophen (Tylenol Liquid) 650 mg Q6H PRN PO PAIN LEVEL 1-3 OR FEVER Last administered on 10/11/18at 08:33; Admin Dose 650 MG; Start 10/02/18 at 02:00 Menthol/Methyl Salicylate (Memo Erazo) 1 applic TID PRN TOP pain; Start 10/02/18 at 06:30 Tramadol HCl (Ultram) 50 mg Q6H PRN PO MODERATE PAIN LEVEL 4-6 Last administered on 10/08/18at 08:04; Admin Dose 50 MG; Start 10/02/18 at 11:00 Potassium Chloride 50 ml @ 50 mls/hr K PROTOCOL PRN IVPB PENDING LAB VALUE Last administered on 10/03/18at 09:55; Admin Dose 50 MLS/HR; Start 10/02/18 at 11:30 Potassium Chloride (Potassium Chloride Pwd/Soln) 20 meq PER PROTOCOL PRN PO POTASSIUM REPLACEMENT PROTOCOL; Start 10/02/18 at 11:30 Potassium Chloride (Potassium Chloride Pwd/Soln) 30 meq PER PROTOCOL PRN PO POTASSIUM REPLACEMENT PROTOCOL; Start 10/02/18 at 11:30 Potassium Chloride (Potassium Chloride Pwd/Soln) 40 meq PER PROTOCOL PRN PO POTASSIUM REPLACEMENT PROTOCOL; Start 10/02/18 at 11:30 Diagnostic Test (Pha) (Accu-Chek) 1 ea 02 XX Last administered on 10/07/18at 01:23; Admin Dose 1 EA; Start 10/03/18 at 02:00 Miscellaneous Information 1 ea NOTE XX ; Start 10/02/18 at 22:00 Glucose (Glutose) 15 gm Q15M PRN PO DECREASED GLUCOSE; Start 10/02/18 at 22:00 Glucose (Glutose) 22.5 gm Q15M PRN PO DECREASED GLUCOSE; Start 10/02/18 at 22:00 Dextrose (D50w Syringe) 25 ml Q15M PRN IV DECREASED GLUCOSE Last administered on 10/07/18at 14:56; Admin Dose 25 ML; Start 10/02/18 at 22:00 Dextrose (D50w Syringe) 50 ml Q15M PRN IV DECREASED GLUCOSE; Start 10/02/18 at 22:00 Glucagon (Glucagen) 1 mg Q15M PRN IM DECREASED GLUCOSE; Start 10/02/18 at 22:00 Glucose (Glutose) 15 gm Q15M PRN BUCCAL DECREASED GLUCOSE; Start 10/02/18 at 22:00 Diagnostic Test (Pha) (Accu-Chek) 1 ea AC MEALS AND BEDTIME XX Last administered on 10/11/18 07:00; Admin Dose 1 EA; Start 10/03/18 at 17:05 Calcium Carbonate (Tums) 500 mg Q4 PRN PO epigastric pain Last administered on 10/05/18 01:34; Admin Dose 500 MG; Start 10/05/18 at 01:30 Pantoprazole (Protonix Tab) 40 mg DAILY@06 PO Last administered on 10/10/18 05:05; Admin Dose 40 MG; Start 10/06/18 at 06:00 Aspirin (Halfprin) 81 mg DAILY PO ; Start 10/12/18 at 09:00 Lactobacillus Acidophilus/ Rhamnosus (Culturelle) 1 cap BID PO Last administered on 10/11/18 08:36; Admin Dose 1 CAP; Start 10/08/18 at 21:00 Acetaminophen/ Hydrocodone Bitart ([place] (10/325)) 1 tab Q6H PRN PO SEVERE PAIN LEVEL 7-10 Last administered on 10/10/18 01:47; Admin Dose 1 TAB; Start 10/08/18 at 14:30 Nicotine (Nicoderm 14 Mg/ 24hr) 1 patch DAILY TRANSDERM Last administered on 10/11/18 08:25; Admin Dose 1 PATCH; Start 10/08/18 at 14:30 Loperamide HCl (Imodium Cap) 2 mg QID PRN PO DIARRHEA; Start 10/09/18 at 12:11 Atorvastatin Calcium (Lipitor) 20 mg QHS PO ; Start 10/15/18 at 21:00 Hydrocortisone (Anusol-Hc Supp) 25 mg TID PRN [place] HEMORROID PAIN/ITCHING; Start 10/09/18 at 13:30 Potassium Chloride (Potassium Chloride Pwd/Soln) 20 meq DAILY PO Last administered on 10/11/18 08:33; Admin Dose 20 MEQ; Start 10/09/18 at 13:30 Enoxaparin Sodium (Lovenox) 40 mg DAILY SC Last administered on 10/11/18 08:19; Admin Dose 40 MG; Start 10/10/18 at 09:00 Insulin Aspart (Novolog Insulin Pen) 9 unit WITH MEALS SC Last administered on 10/10/18 12:48; Admin Dose 9 UNIT; Start 10/09/18 at 18:00 Insulin Glargine (Lantus) 27 units DAILY@0800 SC Last administered on 10/11/18 08:20; Admin Dose 27 UNITS; Start 10/10/18 at 08:00 Insulin Aspart (Novolog Insulin Pen) NOVOLOG *MODERATE* ALGORI... Q4 SC Last administered on 10/10/18at 12:49; Admin Dose 2 UNIT; Start 10/10/18 at 01:00 Meropenem/Sodium Chloride 50 ml @ 100 mls/hr Q12 IVPB Last administered on 10/11/18at 08:35; Admin Dose 100 MLS/HR; Start 10/10/18 at 21:00 MAYA CASTILLO M.D. Oct 11, 2018 10:39
[2018-10-11] MEDS: SOD FERRIC GLUC COMPLX 125 MG in SOD CHLORIDE 0.9% 100 ML IVPB SCH (12:14)
--- NOTE | 2018-10-11 13:15 | PN ---
Date/Time of Note Date/Time of Note DATE: 10/11/18 TIME: 13:10 Assessment/Plan VTE Prophylaxis Risk score (from Ns)>0 risk: 4 [place]CD applied [place]from [facility] [place] No SCD contraindicated: other (scds) Pharmacological prophylaxis: other (scds) Lines/Catheters IV Catheter Type (from [place]): Saline [place] Urinary Cath still in place: No Assessment/Plan Hospital Course Assessment/Plan Assessment: Leukocytosis Microcytic hypochromic anemia- likely multifactorial -FBOT +, Repeat test is negative Elevated LFTs- with very elevated Alk phos -MRCP shows normal CBD Diarrhea - resolved -Stool cx- Coliform -C-diff negative Liver lesions x3 concerning for phelgmon/abscesses -Successful CT guided liver abscess aspiration. Due to small size of the abscess no catheter was placed. -Preliminary results show gram neg rods- pt on abx Fatty liver Diabetes mellitus- with hyperglycemia-poorly controlled HTN Hyponatremia Bipolar disorder Homelessness Plan: PPI tx S/p Successful CT guided liver abscess aspiration. Due to small size of the abscess no catheter was placed. pt refused egd/colon today- Given decrease in HGB, diarrhea. it is extremely important to r/o GI bleed. Patient states he gives his "miliary word" he will follow clear liquid diet, and agrees to egd/colonoscopy tomorrow. Stool studies- pending Patient seen in collaboration with Dr. Mai/[facility] Subjective: Patient refused EGD/Colonoscopy, now would like to proceed with procedures No over night events. WBC count is currently trending down No c/o n/v or abdominal pain. HGB slowly trending down over the last 3 days PHYSICAL EXAMINATION: GENERAL: Alert & oriented x 3, agitated SKIN: No lesions EYES: Pupils equal reactive to light, no discharge. EARS/NOSE AND THROAT: Ears normal, nose normal NECK: Supple. CHEST: Inspection within normal limits. CARDIOVASCULAR: Heart: Regular rate and rhythm RESPIRATORY: Lungs clear to auscultation GASTROINTESTINAL AND LIVER: Abdomen: Soft, non tenderness, non-distended, no hernias, no masses, no organomegaly, no ascites, no guarding, no rebound tenderness, normoactive bowel sounds. Rectal: Deferred. GENITOURINARY: Male genitalia within normal limits. EXTREMITIES: No cyanosis, clubbing or edema. Result Diagram: 10/11/18 0716 10/11/18 0716 Results 24hrs Laboratory Tests Test 10/10/18 14:11 10/10/18 17:24 10/10/18 21:31 10/10/18 22:25 Glucose Level 64 #L Bedside Glucose 83 68 L 108 Test 10/11/18 05:32 10/11/18 07:16 10/11/18 08:11 10/11/18 11:01 Bedside Glucose 121 161 130 White Blood Count 17.1 H Red Blood Count 3.22 L Hemoglobin 7.5 L Hematocrit 24.2 L Mean Corpuscular 75.2 L Volume Mean Corpuscular 23.3 L Hemoglobin Mean Corpuscular 31.0 L Hemoglobin Concent Red Cell 14.9 H Distribution Width Platelet Count 347 Mean Platelet Volume 9.1 Immature 1.800 H Granulocytes % Neutrophils % 89.0 H Lymphocytes % 4.4 L Monocytes % 4.6 Eosinophils % 0.0 Basophils % 0.2 Nucleated Red Blood 0.0 Cells % Immature 0.300 H Granulocytes # Neutrophils # 15.3 H Lymphocytes # 0.8 Monocytes # 0.8 Eosinophils # 0.0 Basophils # 0.0 Nucleated Red Blood 0.0 Cells # Sodium Level 131 L Potassium Level 3.2 L Chloride Level 92 L Carbon Dioxide Level 29 Anion Gap 10 Blood Urea Nitrogen 12 Creatinine 0.46 L Est Glomerular > 60 Filtrat Rate mL/min Glucose Level 132 # Calcium Level 7.6 L Total Bilirubin 0.7 Direct Bilirubin 0.00 Indirect Bilirubin 0.7 Aspartate Amino 77 H Transf (AST/SGOT) Alanine 59 Aminotransferase (AL T/SGPT) Alkaline Phosphatase 860 H Total Protein 5.9 L Albumin 2.6 L Globulin 3.30 H Albumin/Globulin 0.78 Ratio Exam/Review of Systems Exam Vitals Vital Signs Date Temp Pulse Resp B/P (MAP) Pulse Ox O2 O2 Flow FiO2 Time Delivery Rate 10/11/18 98.1 09:18 10/11/18 113 18 162/74 98 Room Air 08:00 (103) Intake and Output 10/10/18 10/10/18 10/11/18 1515:00 23:00 07:00 IntakeIntake Total 680 ml 820 ml 550 ml OutputOutput Total 1800 ml BalanceBalance -1120 ml 820 ml 550 ml Results Results 24hrs Laboratory Tests Test 10/10/18 14:11 10/10/18 17:24 10/10/18 21:31 10/10/18 22:25 Glucose Level 64 #L Bedside Glucose 83 68 L 108 Test 10/11/18 05:32 10/11/18 07:16 10/11/18 08:11 10/11/18 11:01 Bedside Glucose 121 161 130 White Blood Count 17.1 H Red Blood Count 3.22 L Hemoglobin 7.5 L Hematocrit 24.2 L Mean Corpuscular 75.2 L Volume Mean Corpuscular 23.3 L Hemoglobin Mean Corpuscular 31.0 L Hemoglobin Concent Red Cell 14.9 H Distribution Width Platelet Count 347 Mean Platelet Volume 9.1 Immature 1.800 H Granulocytes % Neutrophils % 89.0 H Lymphocytes % 4.4 L Monocytes % 4.6 Eosinophils % 0.0 Basophils % 0.2 Nucleated Red Blood 0.0 Cells % Immature 0.300 H Granulocytes # Neutrophils # 15.3 H Lymphocytes # 0.8 Monocytes # 0.8 Eosinophils # 0.0 Basophils # 0.0 Nucleated Red Blood 0.0 Cells # Sodium Level 131 L Potassium Level 3.2 L Chloride Level 92 L Carbon Dioxide Level 29 Anion Gap 10 Blood Urea Nitrogen 12 Creatinine 0.46 L Est Glomerular > 60 Filtrat Rate mL/min Glucose Level 132 # Calcium Level 7.6 L Total Bilirubin 0.7 Direct Bilirubin 0.00 Indirect Bilirubin 0.7 Aspartate Amino 77 H Transf (AST/SGOT) Alanine 59 Aminotransferase (AL T/SGPT) Alkaline Phosphatase 860 H Total Protein 5.9 L Albumin 2.6 L Globulin 3.30 H Albumin/Globulin 0.78 Ratio Medications Medication Current Medications Buspirone HCl (Buspar) 5 mg BID PO Last administered on 10/10/18at 22:20; Admin Dose 5 MG; Start 10/02/18 at 09:00 Gabapentin (Neurontin) 300 mg TID PO Last administered on 10/11/18at 12:16; Admin Dose 300 MG; Start 10/02/18 at 09:00 Lisinopril (Zestril) 10 mg DAILY PO Last administered on 10/11/18at 08:34; Admin Dose 10 MG; Start 10/02/18 at 09:00 Ondansetron HCl (Zofran Inj) 4 mg Q6H PRN IV NAUSEA AND/OR VOMITING; Start 10/02/18 at 02:00 Albuterol (Proventil 0.083% (Neb)) 2.5 mg Q2H RESP THERAPY PRN NEB SHORTNESS OF BREATH; Start 10/02/18 at 02:00 Acetaminophen (Tylenol Liquid) 650 mg Q6H PRN PO PAIN LEVEL 1-3 OR FEVER Last administered on 10/11/18 08:33; Admin Dose 650 MG; Start 10/02/18 at 02:00 Menthol/Methyl Salicylate (Memo Erazo) 1 applic TID PRN TOP pain; Start 10/02/18 at 06:30 Tramadol HCl (Ultram) 50 mg Q6H PRN PO MODERATE PAIN LEVEL 4-6 Last administered on 10/08/18 08:04; Admin Dose 50 MG; Start 10/02/18 at 11:00 Potassium Chloride 50 ml @ 50 mls/hr K PROTOCOL PRN IVPB PENDING LAB VALUE Last administered on 10/03/18 09:55; Admin Dose 50 MLS/HR; Start 10/02/18 at 11:30 Potassium Chloride (Potassium Chloride Pwd/Soln) 20 meq PER PROTOCOL PRN PO POTASSIUM REPLACEMENT PROTOCOL; Start 10/02/18 at 11:30 Potassium Chloride (Potassium Chloride Pwd/Soln) 30 meq PER PROTOCOL PRN PO POTASSIUM REPLACEMENT PROTOCOL; Start 10/02/18 at 11:30 Potassium Chloride (Potassium Chloride Pwd/Soln) 40 meq PER PROTOCOL PRN PO POTASSIUM REPLACEMENT PROTOCOL; Start 10/02/18 at 11:30 Diagnostic Test (Pha) (Accu-Chek) 1 ea 02 XX Last administered on 10/07/18at 01:23; Admin Dose 1 EA; Start 10/03/18 at 02:00 Miscellaneous Information 1 ea NOTE XX ; Start 10/02/18 at 22:00 Glucose (Glutose) 15 gm Q15M PRN PO DECREASED GLUCOSE; Start 10/02/18 at 22:00 Glucose (Glutose) 22.5 gm Q15M PRN PO DECREASED GLUCOSE; Start 10/02/18 at 22:00 Dextrose (D50w Syringe) 25 ml Q15M PRN IV DECREASED GLUCOSE Last administered on 10/07/18at 14:56; Admin Dose 25 ML; Start 10/02/18 at 22:00 Dextrose (D50w Syringe) 50 ml Q15M PRN IV DECREASED GLUCOSE; Start 10/02/18 at 22:00 Glucagon (Glucagen) 1 mg Q15M PRN IM DECREASED GLUCOSE; Start 10/02/18 at 22:00 Glucose (Glutose) 15 gm Q15M PRN BUCCAL DECREASED GLUCOSE; Start 10/02/18 at 22:00 Diagnostic Test (Pha) (Accu-Chek) 1 ea AC MEALS AND BEDTIME XX Last administered on 10/11/18at 11:10; Admin Dose 1 EA; Start 10/03/18 at 17:05 Calcium Carbonate (Tums) 500 mg Q4 PRN PO epigastric pain Last administered on 10/05/18 01:34; Admin Dose 500 MG; Start 10/05/18 at 01:30 Pantoprazole (Protonix Tab) 40 mg DAILY@06 PO Last administered on 10/10/18at 05:05; Admin Dose 40 MG; Start 10/06/18 at 06:00 Aspirin (Halfprin) 81 mg DAILY PO ; Start 10/12/18 at 09:00 Lactobacillus Acidophilus/ Rhamnosus (Culturelle) 1 cap BID PO Last administered on 10/11/18at 08:36; Admin Dose 1 CAP; Start 10/08/18 at 21:00 Acetaminophen/ Hydrocodone Bitart ([place] (10/325)) 1 tab Q6H PRN PO SEVERE PAIN LEVEL 7-10 Last administered on 10/10/18at 01:47; Admin Dose 1 TAB; Start 10/08/18 at 14:30 Nicotine (Nicoderm 14 Mg/ 24hr) 1 patch DAILY TRANSDERM Last administered on 10/11/18 08:25; Admin Dose 1 PATCH; Start 10/08/18 at 14:30 Loperamide HCl (Imodium Cap) 2 mg QID PRN PO DIARRHEA; Start 10/09/18 at 12:11 Atorvastatin Calcium (Lipitor) 20 mg QHS PO ; Start 10/15/18 at 21:00 Hydrocortisone (Anusol-Hc Supp) 25 mg TID PRN [place] HEMORROID PAIN/ITCHING; Start 10/09/18 at 13:30 Potassium Chloride (Potassium Chloride Pwd/Soln) 20 meq DAILY PO Last administered on 10/11/18at 08:33; Admin Dose 20 MEQ; Start 10/09/18 at 13:30 Enoxaparin Sodium (Lovenox) 40 mg DAILY SC Last administered on 10/11/18 08:19; Admin Dose 40 MG; Start 10/10/18 at 09:00 Insulin Aspart (Novolog Insulin Pen) 9 unit WITH MEALS SC Last administered on 10/11/18 11:06; Admin Dose 9 UNIT; Start 10/09/18 at 18:00 Insulin Glargine (Lantus) 27 units DAILY@0800 SC Last administered on 10/11/18 08:20; Admin Dose 27 UNITS; Start 10/10/18 at 08:00 Insulin Aspart (Novolog Insulin Pen) NOVOLOG *MODERATE* ALGORI... Q4 SC Last administered on 10/10/18 12:49; Admin Dose 2 UNIT; Start 10/10/18 at 01:00 Meropenem/Sodium Chloride 50 ml @ 100 mls/hr Q12 IVPB Last administered on 10/11/18 08:35; Admin Dose 100 MLS/HR; Start 10/10/18 at 21:00 Ferric Sodium Gluconate Complex 125 mg/Sodium Chloride 110 ml @ 110 mls/hr DA BEE@1300 IVPB Last administered on 10/11/18at 12:14; Admin Dose 110 MLS/HR; Start 10/11/18 at 13:00; Stop 10/15/18 at 13:59 OLIVA BOWER Oct 11, 2018 13:15
[2018-10-11 14:00] VITALS: BP 119/61; PULSE 109; RESP 18
--- NOTE | 2018-10-11 16:23 | CONS ---
Assessment/Plan Assessment/Plan Hospital Course (Demo Recall) Patient is awake noncompliant with physical examination and had been refusing care he is spiking fevers with a T-max yesterday 101.22 current 99.9 WBC today 17.1 H&H 7.5 and 24.2 platelets 347 neutrophils 89 BUN 12 creatinine 0.46 Microbiology: Blood and urine cultures since admission negative stool for C. difficile came back negative intra-abdominal fluid culture grew Klebsiella pneumonia resistant only to Ancef sensitive to all other antibiotics Physical examination: Well-developed elderly -Citizen Of [place] man in no distress. Head atraumatic normocephalic neck is supple chest rise symmetrical breath sounds diminished bases heart S1-S2 abdomen obese soft bowel sounds present extremities without cyanosis Assessment: 1. Sepsis 2. Liver abscess status post CT-guided drainage 3. Ongoing diarrhea, C. difficile negative 4. Diabetes, poorly controlled 5. Hypertension 6. Bipolar disorder and homelessness Plan: Patient is clinically stable gastroenterology on case he is on meropenem which we will continue for now, repeat cultures for temperature of 101 and above Consultation Date/Type/Reason Admit Date/Time Oct 02, 2018 at 00:05 Initial Consult Date 10/04/18 Type of Consult id Requesting Provider: HERRERA SALDAÑA NP Date/Time of Note DATE: 10/11/18 TIME: 16:22 Exam/Review of Systems Exam Vitals Vital Signs Date Temp Pulse Resp B/P (MAP) Pulse Ox O2 O2 Flow FiO2 Time Delivery Rate 10/11/18 98.1 09:18 10/11/18 113 18 162/74 98 Room Air 08:00 (103) Intake and Output 10/10/18 10/10/18 10/11/18 1515:00 23:00 07:00 IntakeIntake Total 680 ml 820 ml 550 ml OutputOutput Total 1800 ml BalanceBalance -1120 ml 820 ml 550 ml Results Result Diagram: 10/11/18 0716 10/11/18 0716 Results 24hrs Laboratory Tests Test 10/10/18 17:24 10/10/18 21:31 10/10/18 22:25 10/11/18 05:32 Bedside Glucose 83 68 L 108 121 Test 10/11/18 07:16 10/11/18 08:11 10/11/18 11:01 10/11/18 14:06 White Blood Count 17.1 H Red Blood Count 3.22 L Hemoglobin 7.5 L Hematocrit 24.2 L Mean Corpuscular 75.2 L Volume Mean Corpuscular 23.3 L Hemoglobin Mean Corpuscular 31.0 L Hemoglobin Concent Red Cell 14.9 H Distribution Width Platelet Count 347 Mean Platelet Volume 9.1 Immature 1.800 H Granulocytes % Neutrophils % 89.0 H Lymphocytes % 4.4 L Monocytes % 4.6 Eosinophils % 0.0 Basophils % 0.2 Nucleated Red Blood 0.0 Cells % Immature 0.300 H Granulocytes # Neutrophils # 15.3 H Lymphocytes # 0.8 Monocytes # 0.8 Eosinophils # 0.0 Basophils # 0.0 Nucleated Red Blood 0.0 Cells # Sodium Level 131 L Potassium Level 3.2 L Chloride Level 92 L Carbon Dioxide Level 29 Anion Gap 10 Blood Urea Nitrogen 12 Creatinine 0.46 L Est Glomerular > 60 Filtrat Rate mL/min Glucose Level 132 # Calcium Level 7.6 L Total Bilirubin 0.7 Direct Bilirubin 0.00 Indirect Bilirubin 0.7 Aspartate Amino 77 H Transf (AST/SGOT) Alanine 59 Aminotransferase (AL T/SGPT) Alkaline Phosphatase 860 H Total Protein 5.9 L Albumin 2.6 L Globulin 3.30 H Albumin/Globulin 0.78 Ratio Bedside Glucose 161 130 69 L Test 10/11/18 14:31 10/11/18 15:03 Bedside Glucose 77 85 Medications Medication Current Medications Buspirone HCl (Buspar) 5 mg BID PO Last administered on 10/10/18at 22:20; Admin Dose 5 MG; Start 10/02/18 at 09:00 Gabapentin (Neurontin) 300 mg TID PO Last administered on 10/11/18at 12:16; Admin Dose 300 MG; Start 10/02/18 at 09:00 Lisinopril (Zestril) 10 mg DAILY PO Last administered on 10/11/18at 08:34; Admin Dose 10 MG; Start 10/02/18 at 09:00 Ondansetron HCl (Zofran Inj) 4 mg Q6H PRN IV NAUSEA AND/OR VOMITING; Start 10/02/18 at 02:00 Albuterol (Proventil 0.083% (Neb)) 2.5 mg Q2H RESP THERAPY PRN NEB SHORTNESS OF BREATH; Start 10/02/18 at 02:00 Acetaminophen (Tylenol Liquid) 650 mg Q6H PRN PO PAIN LEVEL 1-3 OR FEVER Last administered on 10/11/18at 08:33; Admin Dose 650 MG; Start 10/02/18 at 02:00 Menthol/Methyl Salicylate (Memo Erazo) 1 applic TID PRN TOP pain; Start 10/02/18 at 06:30 Tramadol HCl (Ultram) 50 mg Q6H PRN PO MODERATE PAIN LEVEL 4-6 Last administered on 10/08/18at 08:04; Admin Dose 50 MG; Start 10/02/18 at 11:00 Potassium Chloride 50 ml @ 50 mls/hr K PROTOCOL PRN IVPB PENDING LAB VALUE Last administered on 10/03/18at 09:55; Admin Dose 50 MLS/HR; Start 10/02/18 at 11:30 Potassium Chloride (Potassium Chloride Pwd/Soln) 20 meq PER PROTOCOL PRN PO POTASSIUM REPLACEMENT PROTOCOL; Start 10/02/18 at 11:30 Potassium Chloride (Potassium Chloride Pwd/Soln) 30 meq PER PROTOCOL PRN PO POTASSIUM REPLACEMENT PROTOCOL; Start 10/02/18 at 11:30 Potassium Chloride (Potassium Chloride Pwd/Soln) 40 meq PER PROTOCOL PRN PO POTASSIUM REPLACEMENT PROTOCOL; Start 10/02/18 at 11:30 Diagnostic Test (Pha) (Accu-Chek) 1 ea 02 XX Last administered on 10/07/18at 01:23; Admin Dose 1 EA; Start 10/03/18 at 02:00 Miscellaneous Information 1 ea NOTE XX ; Start 10/02/18 at 22:00 Glucose (Glutose) 15 gm Q15M PRN PO DECREASED GLUCOSE; Start 10/02/18 at 22:00 Glucose (Glutose) 22.5 gm Q15M PRN PO DECREASED GLUCOSE; Start 10/02/18 at 22:00 Dextrose (D50w Syringe) 25 ml Q15M PRN IV DECREASED GLUCOSE Last administered on 10/07/18at 14:56; Admin Dose 25 ML; Start 10/02/18 at 22:00 Dextrose (D50w Syringe) 50 ml Q15M PRN IV DECREASED GLUCOSE; Start 10/02/18 at 22:00 Glucagon (Glucagen) 1 mg Q15M PRN IM DECREASED GLUCOSE; Start 10/02/18 at 22:00 Glucose (Glutose) 15 gm Q15M PRN BUCCAL DECREASED GLUCOSE; Start 10/02/18 at 22:00 Diagnostic Test (Pha) (Accu-Chek) 1 ea AC MEALS AND BEDTIME XX Last administered on 10/11/18 11:10; Admin Dose 1 EA; Start 10/03/18 at 17:05 Calcium Carbonate (Tums) 500 mg Q4 PRN PO epigastric pain Last administered on 10/05/18 01:34; Admin Dose 500 MG; Start 10/05/18 at 01:30 Pantoprazole (Protonix Tab) 40 mg DAILY@06 PO Last administered on 10/10/18 05:05; Admin Dose 40 MG; Start 10/06/18 at 06:00 Aspirin (Halfprin) 81 mg DAILY PO ; Start 10/12/18 at 09:00 Lactobacillus Acidophilus/ Rhamnosus (Culturelle) 1 cap BID PO Last administered on 10/11/18 08:36; Admin Dose 1 CAP; Start 10/08/18 at 21:00 Acetaminophen/ Hydrocodone Bitart ([place] (10/325)) 1 tab Q6H PRN PO SEVERE PAIN LEVEL 7-10 Last administered on 10/10/18 01:47; Admin Dose 1 TAB; Start 10/08/18 at 14:30 Nicotine (Nicoderm 14 Mg/ 24hr) 1 patch DAILY TRANSDERM Last administered on 10/11/18 08:25; Admin Dose 1 PATCH; Start 10/08/18 at 14:30 Loperamide HCl (Imodium Cap) 2 mg QID PRN PO DIARRHEA; Start 10/09/18 at 12:11 Atorvastatin Calcium (Lipitor) 20 mg QHS PO ; Start 10/15/18 at 21:00 Hydrocortisone (Anusol-Hc Supp) [address] HEMORROID PAIN/ITCHING; Start 10/09/18 at 13:30 Potassium Chloride (Potassium Chloride Pwd/Soln) 20 meq DAILY PO Last administered on 10/11/18 08:33; Admin Dose 20 MEQ; Start 10/09/18 at 13:30 Enoxaparin Sodium (Lovenox) 40 mg DAILY SC Last administered on 10/11/18 08:19; Admin Dose 40 MG; Start 10/10/18 at 09:00; Status Future hold Insulin Aspart (Novolog Insulin Pen) 9 unit WITH MEALS SC Last administered on 2/28/19at 11:06; Admin Dose 9 UNIT; Start 10/09/18 at 18:00 Insulin Glargine (Lantus) 27 units DAILY@0800 SC Last administered on 10/11/18at 08:20; Admin Dose 27 UNITS; Start 10/10/18 at 08:00 Insulin Aspart (Novolog Insulin Pen) NOVOLOG *MODERATE* ALGORI... Q4 SC Last ad ministered on 10/10/18at 12:49; Admin Dose 2 UNIT; Start 10/10/18 at 01:00 Meropenem/Sodium Chloride 50 ml @ 100 mls/hr Q12 IVPB Last administered on 10/11/18at 08:35; Admin Dose 100 MLS/HR; Start 10/10/18 at 21:00 Ferric Sodium Gluconate Complex 125 mg/Sodium Chloride 110 ml @ 110 mls/hr DAILY@1300 IVPB Last administered on 10/11/18at 12:14; Admin Dose 110 MLS/HR; Start 10/11/18 at 13:00; Stop 10/15/18 at 13:59 Magnesium Citrate (Citroma) 300 ml ONCE ONCE PO ; Start 10/11/18 at 17:30; Stop 10/11/18 at 17:31 Polyethylene Glycol (Miralax) 119 gm ONCE ONCE PO ; Start 10/11/18 at 18:30; Stop 10/11/18 at 18:31 Polyethylene Glycol (Miralax) 119 gm 2ND DOSE (GI PREP) ONCE PO ; Start 10/12/18 at 06:00; Stop 10/12/18 at 06:01 Bisacodyl (Dulcolax) 10 mg 2ND DOSE (GI PREP) ONCE PO ; Start 10/12/18 at 08:00; Stop 10/12/18 at 08:01 AURORA ARZOLA NP Oct 11, 2018 16:23
[2018-10-11] MEDS ORDERED: MAGNESIUM CITRATE 300 ML BTL PO ONE (17:30)
--- NOTE | 2018-10-11 17:41 | PN ---
Date/Time of Note Date/Time of Note DATE: 10/11/18 TIME: 17:39 Assessment/Plan VTE Prophylaxis Risk score (from Ns)>0 risk: 3 SCD applied (from Ns): No SCD contraindicated: low risk/ambulating Pharmacological prophylaxis: NA/contraindicated Pharm contraindication: bleeding Lines/Catheters IV [facility] [place] Lock Urinary Cath still in place: No Assessment/Plan Hospital Course A/P 1. DKA vs hyperosmolar hyperglycemic state, stable/ improved continue insulin 2. Nonadherence status post multiple sessions of counseling. Adjust insulin diet. Definitely will be challenging/high risk of future DKA. 3. Abn LFTs/imaging. Potential abscess, sp aspiration, follow-up on cultures. May need PICC. 4. Homeless/ ftt, may need placement 5. Tobacco abuse, sp counseling offered patch 6. Bipolar dz/ mod stable observe 7. Hepatic nodule? 8. Dyslipidemia/metabolic syndrome 9. Anemia combination jolene and possible chr. stable observe. EGD/ colonoscopy results pending 10. Hypertension? 11. Diarrhea, c dif -vs 5days ago. DC senna/ Colace consider colono. Consider discontinuing Protonix. Subjective: 10/08 no fever nausea vomiting toxicity, following commands. wants more food/ calories 10/09; diarrhea; denies george abd pain. 10/10: No distress no events. 10/11: Nonadherence to diet medications imaging and diagnostic studies. Took GI prep however had diarrhea O: Vital signs stable Physical exam No pallor/ icterus Regular no mrg Clear Benign nt nd; no rrg No edema Result Diagram: 10/11/18 0716 10/11/18 0716 Results 24hrs Laboratory Tests Test 10/10/18 21:31 10/10/18 22:25 10/11/18 05:32 10/11/18 07:16 Bedside Glucose 68 L 108 121 White Blood Count 17.1 H Red Blood Count 3.22 L Hemoglobin 7.5 L Hematocrit 24.2 L Mean Corpuscular 75.2 L Volume Mean Corpuscular 23.3 L Hemoglobin Mean Corpuscular 31.0 L Hemoglobin Concent Red Cell 14.9 H Distribution Width Platelet Count 347 Mean Platelet Volume 9.1 Immature 1.800 H Granulocytes % Neutrophils % 89.0 H Lymphocytes % 4.4 L Monocytes % 4.6 Eosinophils % 0.0 Basophils % 0.2 Nucleated Red Blood 0.0 Cells % Immature 0.300 H Granulocytes # Neutrophils # 15.3 H Lymphocytes # 0.8 Monocytes # 0.8 Eosinophils # 0.0 Basophils # 0.0 Nucleated Red Blood 0.0 Cells # Sodium Level 131 L Potassium Level 3.2 L Chloride Level 92 L Carbon Dioxide Level 29 Anion Gap 10 Blood Urea Nitrogen 12 Creatinine 0.46 L Est Glomerular > 60 Filtrat Rate mL/min Glucose Level 132 # Calcium Level 7.6 L Total Bilirubin 0.7 Direct Bilirubin 0.00 Indirect Bilirubin 0.7 Aspartate Amino 77 H Transf (AST/SGOT) Alanine 59 Aminotransferase (AL T/SGPT) Alkaline Phosphatase 860 H Total Protein 5.9 L Albumin 2.6 L Globulin 3.30 H Albumin/Globulin 0.78 Ratio Test 10/11/18 08:11 10/11/18 11:01 10/11/18 14:06 10/11/18 14:31 Bedside Glucose 161 130 69 L 77 Test 10/11/18 15:03 10/11/18 17:07 Bedside Glucose 85 112 Exam/Review of Systems Exam Vitals Vital Signs Date Temp Pulse Resp B/P (MAP) Pulse Ox O2 O2 Flow FiO2 Time Delivery Rate 10/11/18 98.3 109 18 119/61 97 14:00 (80) 10/11/18 Room Air 08:00 Intake and Output 10/10/18 10/10/18 10/11/18 1515:00 23:00 07:00 IntakeIntake Total 680 ml 820 ml 550 ml OutputOutput Total 1800 ml BalanceBalance -1120 ml 820 ml 550 ml Results Results 24hrs Laboratory Tests Test 10/10/18 21:31 10/10/18 22:25 10/11/18 05:32 10/11/18 07:16 Bedside Glucose 68 L 108 121 White Blood Count 17.1 H Red Blood Count 3.22 L Hemoglobin 7.5 L Hematocrit 24.2 L Mean Corpuscular 75.2 L Volume Mean Corpuscular 23.3 L Hemoglobin Mean Corpuscular 31.0 L Hemoglobin Concent Red Cell 14.9 H Distribution Width Platelet Count 347 Mean Platelet Volume 9.1 Immature 1.800 H Granulocytes % Neutrophils % 89.0 H Lymphocytes % 4.4 L Monocytes % 4.6 Eosinophils % 0.0 Basophils % 0.2 Nucleated Red Blood 0.0 Cells % Immature 0.300 H Granulocytes # Neutrophils # 15.3 H Lymphocytes # 0.8 Monocytes # 0.8 Eosinophils # 0.0 Basophils # 0.0 Nucleated Red Blood 0.0 Cells # Sodium Level 131 L Potassium Level 3.2 L Chloride Level 92 L Carbon Dioxide Level 29 Anion Gap 10 Blood Urea Nitrogen 12 Creatinine 0.46 L Est Glomerular > 60 Filtrat Rate mL/min Glucose Level 132 # Calcium Level 7.6 L Total Bilirubin 0.7 Direct Bilirubin 0.00 Indirect Bilirubin 0.7 Aspartate Amino 77 H Transf (AST/SGOT) Alanine 59 Aminotransferase (AL T/SGPT) Alkaline Phosphatase 860 H Total Protein 5.9 L Albumin 2.6 L Globulin 3.30 H Albumin/Globulin 0.78 Ratio Test 10/11/18 08:11 10/11/18 11:01 10/11/18 14:06 10/11/18 14:31 Bedside Glucose 161 130 69 L 77 Test 10/11/18 15:03 10/11/18 17:07 Bedside Glucose 85 112 Medications Medication Current Medications Buspirone HCl (Buspar) 5 mg BID PO Last administered on 10/10/18 22:20; Admin Dose 5 MG; Start 10/02/18 at 09:00 Gabapentin (Neurontin) 300 mg TID PO Last administered on 10/11/18 12:16; Admin Dose 300 MG; Start 10/02/18 at 09:00 Lisinopril (Zestril) 10 mg DAILY PO Last administered on 10/11/18 08:34; Admin Dose 10 MG; Start 10/02/18 at 09:00 Ondansetron HCl (Zofran Inj) 4 mg Q6H PRN IV NAUSEA AND/OR VOMITING; Start 10/02/18 at 02:00 Albuterol (Proventil 0.083% (Neb)) 2.5 mg Q2H RESP THERAPY PRN NEB SHORTNESS OF BREATH; Start 10/02/18 at 02:00 Acetaminophen (Tylenol Liquid) 650 mg Q6H PRN PO PAIN LEVEL 1-3 OR FEVER Last administered on 10/11/18 08:33; Admin Dose 650 MG; Start 10/02/18 at 02:00 Menthol/Methyl Salicylate (Memo Erazo) 1 applic TID PRN TOP pain; Start 10/02/18 at 06:30 Tramadol HCl (Ultram) 50 mg Q6H PRN PO MODERATE PAIN LEVEL 4-6 Last administered on 10/08/18 08:04; Admin Dose 50 MG; Start 10/02/18 at 11:00 Potassium Chloride 50 ml @ 50 mls/hr K PROTOCOL PRN IVPB PENDING LAB VALUE Last administered on 10/03/18at 09:55; Admin Dose 50 MLS/HR; Start 10/02/18 at 11:30 Potassium Chloride (Potassium Chloride Pwd/Soln) 20 meq PER PROTOCOL PRN PO POTASSIUM REPLACEMENT PROTOCOL; Start 10/02/18 at 11:30 Potassium Chloride (Potassium Chloride Pwd/Soln) 30 meq PER PROTOCOL PRN PO POTASSIUM REPLACEMENT PROTOCOL; Start 10/02/18 at 11:30 Potassium Chloride (Potassium Chloride Pwd/Soln) 40 meq PER PROTOCOL PRN PO POTASSIUM REPLACEMENT PROTOCOL; Start 10/02/18 at 11:30 Diagnostic Test (Pha) (Accu-Chek) 1 ea 02 XX Last administered on 10/07/18at 01:23; Admin Dose 1 EA; Start 10/03/18 at 02:00 Miscellaneous Information 1 ea NOTE XX ; Start 10/02/18 at 22:00 Glucose (Glutose) 15 gm Q15M PRN PO DECREASED GLUCOSE; Start 10/02/18 at 22:00 Glucose (Glutose) 22.5 gm Q15M PRN PO DECREASED GLUCOSE; Start 10/02/18 at 22:00 Dextrose (D50w Syringe) 25 ml Q15M PRN IV DECREASED GLUCOSE Last administered on 10/07/18at 14:56; Admin Dose 25 ML; Start 10/02/18 at 22:00 Dextrose (D50w Syringe) 50 ml Q15M PRN IV DECREASED GLUCOSE; Start 10/02/18 at 22:00 Glucagon (Glucagen) 1 mg Q15M PRN IM DECREASED GLUCOSE; Start 10/02/18 at 22:00 Glucose (Glutose) 15 gm Q15M PRN BUCCAL DECREASED GLUCOSE; Start 10/02/18 at 22:00 Diagnostic Test (Pha) (Accu-Chek) 1 ea AC MEALS AND BEDTIME XX Last administered on 10/11/18 17:12; Admin Dose 1 EA; Start 10/03/18 at 17:05 Calcium Carbonate (Tums) 500 mg Q4 PRN PO epigastric pain Last administered on 10/05/18 01:34; Admin Dose 500 MG; Start 10/05/18 at 01:30 Pantoprazole (Protonix Tab) 40 mg DAILY@06 PO Last administered on 10/10/18 05:05; Admin Dose 40 MG; Start 10/06/18 at 06:00 Aspirin (Halfprin) 81 mg DAILY PO ; Start 10/12/18 at 09:00 Lactobacillus Acidophilus/ Rhamnosus (Culturelle) 1 cap BID PO Last administered on 10/11/18 08:36; Admin Dose 1 CAP; Start 10/08/18 at 21:00 Acetaminophen/ Hydrocodone Bitart ([place] (10/325)) 1 tab Q6H PRN PO SEVERE PAIN LEVEL 7-10 Last administered on 10/10/18 01:47; Admin Dose 1 TAB; Start 10/08/18 at 14:30 Nicotine (Nicoderm 14 Mg/ 24hr) 1 patch DAILY TRANSDERM Last administered on 10/11/18 08:25; Admin Dose 1 PATCH; Start 10/08/18 at 14:30 Loperamide HCl (Imodium Cap) 2 mg QID PRN PO DIARRHEA; Start 10/09/18 at 12:11 Atorvastatin Calcium (Lipitor) 20 mg QHS PO ; Start 10/15/18 at 21:00 Hydrocortisone (Anusol-Hc Supp) 25 mg TID PRN [place] HEMORROID PAIN/ITCHING; Start 10/09/18 at 13:30 Potassium Chloride (Potassium Chloride Pwd/Soln) 20 meq DAILY PO Last administe red on 10/11/18 08:33; Admin Dose 20 MEQ; Start 10/09/18 at 13:30 Enoxaparin Sodium (Lovenox) 40 mg DAILY SC Last administered on 10/11/18 08:19; Admin Dose 40 MG; Start 10/10/18 at 09:00; Status Future hold Insulin Aspart (Novolog Insulin Pen) 9 unit WITH MEALS SC Last administered on 10/11/18 17:25; Admin Dose 9 UNIT; Start 10/09/18 at 18:00 Insulin Glargine (Lantus) 27 units DAILY@0800 SC Last administered on 10/11/18 08:20; Admin Dose 27 UNITS; Start 10/10/18 at 08:00 Insulin Aspart (Novolog Insulin Pen) NOVOLOG *MODERATE* ALGORI... Q4 SC Last administered on 10/10/18at 12:49; Admin Dose 2 UNIT; Start 10/10/18 at 01:00 Meropenem/Sodium Chloride 50 ml @ 100 mls/hr Q12 IVPB Last administered on 10/11/18at 08:35; Admin Dose 100 MLS/HR; Start 10/10/18 at 21:00 Ferric Sodium Gluconate Complex 125 mg/Sodium Chloride 110 ml @ 110 mls/hr DAILY@1300 IVPB Last administered on 10/11/18at 12:14; Admin Dose 110 MLS/HR; Start 10/11/18 at 13:00; Stop 10/15/18 at 13:59 Polyethylene Glycol (Miralax) 119 gm ONCE ONCE PO ; Start 10/11/18 at 18:30; Stop 10/11/18 at 18:31 Polyethylene Glycol (Miralax) 119 gm 2ND DOSE (GI PREP) ONCE PO ; Start 10/12/18 at 06:00; Stop 10/12/18 at 06:01 Bisacodyl (Dulcolax) 10 mg 2ND DOSE (GI PREP) ONCE PO ; Start 10/12/18 at 08:00; Stop 10/12/18 at 08:01 MARKO PAYAN MD Oct 11, 2018 17:41
[2018-10-11 21:10] VITALS: BP 141/79; PULSE 110; RESP 18
[2018-10-11] MEDS: BUSPIRONE 5 MG TAB PO SCH (21:33)
[2018-10-11] MEDS: DEXTROSE 5%-0.45% NACL 1,000 ML IV SCH (23:56)
[2018-10-12] VITALS (19 sets, daily range): BP systolic 91–143; BP diastolic 57–85; PULSE 74–113; RESP 16–32
[2018-10-12] MEDS: INSULIN ASPART [NOVOLOG] 3 ML PEN SC SCH ×9 (01:00→20:21)
[2018-10-12] MEDS: ACCU-CHEK XX SCH ×5 (02:00→20:22)
[2018-10-12] MEDS: PANTOPRAZOLE (EC) 40 MG TAB PO SCH (05:51)
[2018-10-12] MEDS ORDERED: POLYETHYLENE GLYCOL 3350 119 GM POWDER PO ONE (06:00)
[2018-10-12] MEDS ORDERED: BISACODYL (EC) 5 MG TAB PO ONE (08:00)
[2018-10-12] MEDS: LISINOPRIL 10 MG TAB PO SCH (08:27)
[2018-10-12] MEDS: GABAPENTIN 300 MG CAP PO SCH ×3 (08:27→20:21)
[2018-10-12] MEDS: BUSPIRONE 5 MG TAB PO SCH ×2 (08:27→20:21)
[2018-10-12] MEDS: LACTOBACILLUS RHAMNOSUS CAP PO SCH ×2 (08:27→20:21)
[2018-10-12] MEDS: POTASSIUM CHLORIDE 20 MEQ POWDER FOR ORAL SOLN PO SCH (08:27)
[2018-10-12] MEDS ORDERED: ASPIRIN (EC) 81 MG TAB PO SCH (09:00)
[2018-10-12] MEDS: INSULIN GLARGINE [LANTus] (100 UNITS/ML) SYG SC SCH (09:20)
[2018-10-12] MEDS: MEROPENEM 1 GM/50ML(PMX) 50 ML IVPB SCH ×2 (09:21→20:21)
[2018-10-12] MEDS: NICOTINE (14 MG/24 HR) PATCH TRANSDERM SCH (09:21)
--- NOTE | 2018-10-12 10:24 | PN ---
Date/Time of Note Date/Time of Note DATE: 10/12/18 TIME: 10:20 Assessment/Plan VTE Prophylaxis Risk score (from Nsg)>0 risk: 3 SCD applied (from Nsg): No SCD contraindicated: low risk/ambulating Pharmacological prophylaxis: NA/contraindicated Pharm contraindication: surgical contra Lines/Catheters IV Catheter Type (from Nrs): Peripheral IV Urinary Cath still in place: No Assessment/Plan Hospital Course A/P 1. DKA vs hyperosmolar hyperglycemic state, stable/ improved cont insulin 2. Nonadherence sp multiple sessions of counseling. Adjusted insulin diet. Definitely will be challenging/high risk of future DKA. 3. Abn LFTs/imaging. Potential abscess, sp aspiration, fu cx's. May need PICC/IV atbs. due to nonadherence, hopefully we can dc on po's. 4. Homeless/ ftt, may need placement; options have been given in the past but he continues to reside at his previous place of living.. 5. Tobacco abuse, sp counseling offered patch 6. Bipolar dz/ mod stable observe 7. Hepatic nodule? 8. Dyslipidemia/metabolic syndrome 9. Anemia combination jolene and possible chr. stable observe. EGD/ colonoscopy later today if he agrees. Status post prep. 10. Hypertension? 11. Diarrhea, c dif -vs 5days ago. DC senna/ Colace consider colono. Consider dc Protonix if EGD unremarkable. Subjective: 10/08 no fever nausea vomiting toxicity, following commands. wants more food/ calories 10/09; diarrhea; denies george abd pain. 10/10: No distress no events. 10/11: Nonadherence to diet medications imaging and diagnostic studies. Took GI prep however had diarrhea 10/12: Sugar in the 70s controlled while n.p.o. No nausea vomiting. No chest pain. Subjective dizziness but vitals findings are negative. Fever noted. Col onoscopy today O: Vital signs stable, except fever Physical exam No pallor/ icterus Regular no mrg Clear Benign nt nd; no rrg No edema Disposition: Post EGD colonoscopy, hopefully able to dc on po antibiotics. He will probably go back to his previous living situation Result Diagram: 10/11/18 0716 10/11/18 0716 Results 24hrs Laboratory Tests Test 10/11/18 11:01 10/11/18 14:06 10/11/18 14:31 10/11/18 15:03 Bedside Glucose 130 69 L 77 85 Test 10/11/18 17:07 10/11/18 21:31 10/11/18 21:48 10/11/18 22:14 Bedside Glucose 112 67 L 75 106 Test 10/12/18 01:23 10/12/18 02:44 10/12/18 05:48 10/12/18 08:25 Bedside Glucose 69 L 75 68 L 86 Exam/Review of Systems Exam Vitals Vital Signs Date Temp Pulse Resp B/P (MAP) Pulse Ox O2 O2 Flow FiO2 Time Delivery Rate 10/12/18 98.0 102 18 143/85 97 07:56 (104) 10/11/18 Room Air 08:00 Intake and Output 10/11/18 10/11/18 10/12/18 1515:00 23:00 07:00 IntakeIntake Total 1110 ml 1760 ml 300 ml OutputOutput Total 1400 ml BalanceBalance -290 ml 1760 ml 300 ml Results Results 24hrs Laboratory Tests Test 10/11/18 11:01 10/11/18 14:06 10/11/18 14:31 10/11/18 15:03 Bedside Glucose 130 69 L 77 85 Test 10/11/18 17:07 10/11/18 21:31 10/11/18 21:48 10/11/18 22:14 Bedside Glucose 112 67 L 75 106 Test 10/12/18 01:23 10/12/18 02:44 10/12/18 05:48 10/12/18 08:25 Bedside Glucose 69 L 75 68 L 86 Medications Medication Current Medications Buspirone HCl (Buspar) 5 mg BID PO Last administered on 10/11/18at 21:33; Admin Dose 5 MG; Start 10/02/18 at 09:00 Gabapentin (Neurontin) 300 mg TID PO Last administered on 10/11/18at 21:33; Admin Dose 300 MG; Start 10/02/18 at 09:00 Lisinopril (Zestril) 10 mg DAILY PO Last administered on 10/11/18at 08:34; Admin Dose 10 MG; Start 10/02/18 at 09:00 Ondansetron HCl (Zofran Inj) 4 mg Q6H PRN IV NAUSEA AND/OR VOMITING; Start 10/02/18 at 02:00 Albuterol (Proventil 0.083% (Neb)) 2.5 mg Q2H RESP THERAPY PRN NEB SHORTNESS OF BREATH; Start 10/02/18 at 02:00 Acetaminophen (Tylenol Liquid) 650 mg Q6H PRN PO PAIN LEVEL 1-3 OR FEVER Last administered on 10/11/18 21:33; Admin Dose 650 MG; Start 10/02/18 at 02:00 Menthol/Methyl Salicylate (Memo Erazo) 1 applic TID PRN TOP pain; Start 10/02/18 at 06:30 Tramadol HCl (Ultram) 50 mg Q6H PRN PO MODERATE PAIN LEVEL 4-6 Last administered on 10/08/18 08:04; Admin Dose 50 MG; Start 10/02/18 at 11:00 Potassium Chloride 50 ml @ 50 mls/hr K PROTOCOL PRN IVPB PENDING LAB VALUE Last administered on 10/03/18 09:55; Admin Dose 50 MLS/HR; Start 10/02/18 at 11:30 Potassium Chloride (Potassium Chloride Pwd/Soln) 20 meq PER PROTOCOL PRN PO POTASSIUM REPLACEMENT PROTOCOL; Start 10/02/18 at 11:30 Potassium Chloride (Potassium Chloride Pwd/Soln) 30 meq PER PROTOCOL PRN PO POTASSIUM REPLACEMENT PROTOCOL; Start 10/02/18 at 11:30 Potassium Chloride (Potassium Chloride Pwd/Soln) 40 meq PER PROTOCOL PRN PO POTASSIUM REPLACEMENT PROTOCOL; Start 10/02/18 at 11:30 Diagnostic Test (Pha) (Accu-Chek) 1 ea 02 XX Last administered on 10/07/18at 01:23; Admin Dose 1 EA; Start 10/03/18 at 02:00 Miscellaneous Information 1 ea NOTE XX ; Start 10/02/18 at 22:00 Glucose (Glutose) 15 gm Q15M PRN PO DECREASED GLUCOSE; Start 10/02/18 at 22:00 Glucose (Glutose) 22.5 gm Q15M PRN PO DECREASED GLUCOSE; Start 10/02/18 at 22:00 Dextrose (D50w Syringe) 25 ml Q15M PRN IV DECREASED GLUCOSE Last administered on 10/07/18at 14:56; Admin Dose 25 ML; Start 10/02/18 at 22:00 Dextrose (D50w Syringe) 50 ml Q15M PRN IV DECREASED GLUCOSE; Start 10/02/18 at 22:00 Glucagon (Glucagen) 1 mg Q15M PRN IM DECREASED GLUCOSE; Start 10/02/18 at 22:00 Glucose (Glutose) 15 gm Q15M PRN BUCCAL DECREASED GLUCOSE; Start 10/02/18 at 22:00 Diagnostic Test (Pha) (Accu-Chek) 1 ea AC MEALS AND BEDTIME XX Last administered on 10/12/18at 07:00; Admin Dose 1 EA; Start 10/03/18 at 17:05 Calcium Carbonate (Tums) 500 mg Q4 PRN PO epigastric pain Last administered on 10/05/18at 01:34; Admin Dose 500 MG; Start 10/05/18 at 01:30 Pantoprazole (Protonix Tab) 40 mg DAILY@06 PO Last administered on 10/10/18at 05:05; Admin Dose 40 MG; Start 10/06/18 at 06:00 Aspirin (Halfprin) 81 mg DAILY PO ; Start 10/12/18 at 09:00 Lactobacillus Acidophilus/ Rhamnosus (Culturelle) 1 cap BID PO Last administered on 10/11/18at 21:33; Admin Dose 1 CAP; Start 10/08/18 at 21:00 Acetaminophen/ Hydrocodone Bitart ([place] (10/325)) 1 tab Q6H PRN PO SEVERE PAIN LEVEL 7-10 Last administered on 10/10/18at 01:47; Admin Dose 1 TAB; Start 10/08/18 at 14:30 Nicotine (Nicoderm 14 Mg/ 24hr) 1 patch DAILY TRANSDERM Last administered on 10/12/18at 09:21; Admin Dose 1 PATCH; Start 10/08/18 at 14:30 Loperamide HCl (Imodium Cap) 2 mg QID PRN PO DIARRHEA; Start 10/09/18 at 12:11 Atorvastatin Calcium (Lipitor) 20 mg QHS PO ; Start 10/15/18 at 21:00 Hydrocortisone (Anusol-Hc Supp) [address] HEMORROID PAIN/ITCHING; Start 10/09/18 at 13:30 Potassium Chloride (Potassium Chloride Pwd/Soln) 20 meq DAILY PO Last administered on 10/11/18at 08:33; Admin Dose 20 MEQ; Start 10/09/18 at 13:30 Insulin Aspart (Novolog Insulin Pen) 9 unit WITH MEALS SC Last administered on 10/11/18 17:25; Admin Dose 9 UNIT; Start 10/09/18 at 18:00 Insulin Glargine (Lantus) 27 units DAILY@0800 SC Last administered on 10/12/18 09:20; Admin Dose 27 UNITS; Start 10/10/18 at 08:00 Insulin Aspart (Novolog Insulin Pen) NOVOLOG *MODERATE* ALGORI... Q4 SC Last administered on 10/10/18at 12:49; Admin Dose 2 UNIT; Start 10/10/18 at 01:00 Meropenem/Sodium Chloride 50 ml @ 100 mls/hr Q12 IVPB Last administered on 10/12/18 09:21; Admin Dose 100 MLS/HR; Start 10/10/18 at 21:00 Ferric Sodium Gluconate Complex 125 mg/Sodium Chloride 110 ml @ 110 mls/hr D AILY@1300 IVPB Last administered on 10/11/18at 12:14; Admin Dose 110 MLS/HR; Start 10/11/18 at 13:00; Stop 10/15/18 at 13:59 Enoxaparin Sodium (Lovenox) 40 mg DAILY SC ; Start 10/14/18 at 09:00 Dextrose/Sodium Chloride 1,000 ml @ 75 mls/hr [id number] IV Last administered on 10/11/18at 23:56; Admin Dose 75 MLS/HR; Start 10/11/18 at 23:00 MARKO PAYAN MD Oct 12, 2018 10:24
[2018-10-12] MEDS ORDERED: LORAZEPAM 2 MG INJ IV ONE (11:00)
[2018-10-12] MEDS ORDERED: morphine 2 MG INJ IV PRN (11:30)
[2018-10-12] MEDS: DEXTROSE 5%-0.45% NACL 1,000 ML IV SCH (12:42)
[2018-10-12] MEDS: SOD FERRIC GLUC COMPLX 125 MG in SOD CHLORIDE 0.9% 100 ML IVPB SCH (12:44)
[2018-10-12] MEDS: ACETAMINOPHEN 650MG/20.3ML CUP PO PRN (13:58)
[2018-10-12] MEDS: DEXTROSE 50% 50 ML SYRINGE IV PRN ×3 (15:35→20:44)
--- NOTE | 2018-10-12 16:18 | PREAC ---
Date/Time of Note Date/Time of Note DATE: 10/12/18 TIME: 16:17 Anesthesia Eval and Record Evaluation Time Pre-Procedure Interview DATE: 10/12/18 TIME: 16:17 Age 63 Sex male NPO: 8 hrs Preoperative diagnosis anemia Planned procedure egd, colonoscopy Past Medical History Past Medical History: Includes Cardio: HTN Endo: Diabetes Psych: Bipolar Surgery & Anesthesia Issues No known issue Meds Anticoagulation: No Beta Jose Alejandro within 24 hr: No Reason Beta Jose Alejandro not given: Pt. not on B-Jose Alejandro Active Scripts Metformin Hcl (Glucophage) 500 Mg Tablet, 500 MG PO WITH BREAKFAST DINNE, #30 TAB Prov:NIK CHANDRA MD 08/05/18 Insulin Lispro (Humalog Kwikpen U-100) 100 Unit/1 Ml Insuln.pen, 15 UNIT SQ AC A for 30 Days, EA Prov:NIK CHANDRA MD 08/05/18 Insulin Regular, Human (Humulin R) 100 Unit/1 Ml Vial, 5 UNIT IJ TID for 30 Days, VIAL Prov:NIK CHANDRA MD 08/05/18 Insulin Lispro (Humalog Kwikpen U-100) 100 Unit/1 Ml Insuln.pen, 32 UNIT SQ Daily at Bedtime for 30 Days, #30 Prov:NIK CHANDRA MD 08/05/18 Reported Medications Buspirone Hcl* (Buspirone Hcl*) 10 Mg Tab, 5 MG PO BID, TAB 08/05/18 Lisinopril* (Lisinopril*) 10 Mg Tablet, 10 MG PO DAILY, #30 TAB 08/05/18 Insulin Glargine,Hum.rec.anlog (Basaglar Kwikpen U-100) 100 Unit/1 Ml Insuln.pen, 32 UNIT SC QHS, EA 08/05/18 Insulin Regular, Human (Humulin R) 100 Unit/1 Ml Vial, 5 UNIT IJ TID, VIAL 08/05/18 Insulin Lispro (Humalog Kwikpen U-100) 100 Unit/1 Ml Insuln.pen, 15 UNIT SQ AC A, EA 08/05/18 Atorvastatin Calcium* (Atorvastatin Calcium*) 20 Mg Tablet, 20 MG PO QHS, #30 TAB 08/05/18 Gabapentin* (Gabapentin*) 300 Mg Capsule, 300 MG PO TID, #90 CAP 08/05/18 Metformin Hcl* (Metformin Hcl*) 500 Mg Tablet, 500 MG PO WITH BREAKFAST DINNE, #60 TAB 08/05/18 Docusate Sodium* (Dok*) 100 Mg Tablet, 100 MG PO BID, #60 CAP 08/05/18 Ferrous Sulfate* (Ferrous Sulfate*) 325 Mg Tabec, 325 MG PO BID, TAB 08/05/18 Aspirin (Low Dose Aspirin) 81 Mg Tablet.dr, 81 MG PO DAILY, #30 TAB 08/05/18 Current Medications Buspirone HCl (Buspar) 5 mg BID PO Last administered on 10/11/18 21:33; Admin Dose 5 MG; Start 10/02/18 at 09:00 Gabapentin (Neurontin) 300 mg TID PO Last administered on 10/11/18 21:33; Admin Dose 300 MG; Start 10/02/18 at 09:00 Lisinopril (Zestril) 10 mg DAILY PO Last administered on 10/11/18 08:34; Admin Dose 10 MG; Start 10/02/18 at 09:00 Ondansetron HCl (Zofran Inj) 4 mg Q6H PRN IV NAUSEA AND/OR VOMITING; Start 10/02/18 at 02:00 Albuterol (Proventil 0.083% (Neb)) 2.5 mg Q2H RESP THERAPY PRN NEB SHORTNESS OF BREATH; Start 10/02/18 at 02:00 Acetaminophen (Tylenol Liquid) 650 mg Q6H PRN PO PAIN LEVEL 1-3 OR FEVER Last administered on 10/12/18 13:58; Admin Dose 650 MG; Start 10/02/18 at 02:00 Menthol/Methyl Salicylate (Memo Erazo) 1 applic TID PRN TOP pain; Start 10/02/18 at 06:30 Tramadol HCl (Ultram) 50 mg Q6H PRN PO MODERATE PAIN LEVEL 4-6 Last administered on 10/08/18 08:04; Admin Dose 50 MG; Start 10/02/18 at 11:00 Potassium Chloride 50 ml @ 50 mls/hr K PROTOCOL PRN IVPB PENDING LAB VALUE Last administered on 10/03/18 09:55; Admin Dose 50 MLS/HR; Start 10/02/18 at 11:30 Potassium Chloride (Potassium Chloride Pwd/Soln) 20 meq PER PROTOCOL PRN PO POTASSIUM REPLACEMENT PROTOCOL; Start 10/02/18 at 11:30 Potassium Chloride (Potassium Chloride Pwd/Soln) 30 meq PER PROTOCOL PRN PO POTASSIUM REPLACEMENT PROTOCOL; Start 10/02/18 at 11:30 Potassium Chloride (Potassium Chloride Pwd/Soln) 40 meq PER PROTOCOL PRN PO POTASSIUM REPLACEMENT PROTOCOL; Start 10/02/18 at 11:30 Diagnostic Test (Pha) (Accu-Chek) 1 ea 02 XX Last administered on 10/07/18at 01:23; Admin Dose 1 EA; Start 10/03/18 at 02:00 Miscellaneous Information 1 ea NOTE XX ; Start 10/02/18 at 22:00 Glucose (Glutose) 15 gm Q15M PRN PO DECREASED GLUCOSE; Start 10/02/18 at 22:00 Glucose (Glutose) 22.5 gm Q15M PRN PO DECREASED GLUCOSE; Start 10/02/18 at 22:00 Dextrose (D50w Syringe) 25 ml Q15M PRN IV DECREASED GLUCOSE Last administered on 10/07/18at 14:56; Admin Dose 25 ML; Start 10/02/18 at 22:00 Dextrose (D50w Syringe) 50 ml Q15M PRN IV DECREASED GLUCOSE Last administered on 10/12/18at 15:35; Admin Dose 50 ML; Start 10/02/18 at 22:00 Glucagon (Glucagen) 1 mg Q15M PRN IM DECREASED GLUCOSE; Start 10/02/18 at 22:00 Glucose (Glutose) 15 gm Q15M PRN BUCCAL DECREASED GLUCOSE; Start 10/02/18 at 22:00 Diagnostic Test (Pha) (Accu-Chek) 1 ea AC MEALS AND BEDTIME XX Last administered on 10/12/18at 11:05; Admin Dose 1 EA; Start 10/03/18 at 17:05 Calcium Carbonate (Tums) 500 mg Q4 PRN PO epigastric pain Last administered on 10/05/18at 01:34; Admin Dose 500 MG; Start 10/05/18 at 01:30 Pantoprazole (Protonix Tab) 40 mg DAILY@06 PO Last administered on 10/10/18 05:05; Admin Dose 40 MG; Start 10/06/18 at 06:00 Lactobacillus Acidophilus/ Rhamnosus (Culturelle) 1 cap BID PO Last administered on 10/11/18at 21:33; Admin Dose 1 CAP; Start 10/08/18 at 21:00 Acetaminophen/ Hydrocodone Bitart ([place] (10/325)) 1 tab Q6H PRN PO SEVERE PAIN LEVEL 7-10 Last administered on 10/10/18 01:47; Admin Dose 1 TAB; Start 10/08/18 at 14:30 Nicotine (Nicoderm 14 Mg/ 24hr) 1 patch DAILY TRANSDERM Last administered on 10/12/18 09:21; Admin Dose 1 PATCH; Start 10/08/18 at 14:30 Loperamide HCl (Imodium Cap) 2 mg QID PRN PO DIARRHEA; Start 10/09/18 at 12:11 Atorvastatin Calcium (Lipitor) 20 mg QHS PO ; Start 10/15/18 at 21:00 Hydrocortisone (Anusol-Hc Supp) 25 mg TID PRN [place] HEMORROID PAIN/ITCHING; Start 10/09/18 at 13:30 Potassium Chloride (Potassium Chloride Pwd/Soln) 20 meq DAILY PO Last administered on 10/11/18 08:33; Admin Dose 20 MEQ; Start 10/09/18 at 13:30 Insulin Aspart (Novolog Insulin Pen) 9 unit WITH MEALS SC Last administered on 10/11/18 17:25; Admin Dose 9 UNIT; Start 10/09/18 at 18:00 Insulin Glargine (Lantus) 27 units DAILY@0800 SC Last administered on 10/12/18 09:20; Admin Dose 27 UNITS; Start 10/10/18 at 08:00 Insulin Aspart (Novolog Insulin Pen) NOVOLOG *MODERATE* ALGORI... Q4 SC Last administered on 10/10/18 12:49; Admin Dose 2 UNIT; Start 10/10/18 at 01:00 Meropenem/Sodium Chloride 50 ml @ 100 mls/hr Q12 IVPB Last administered on 10/12/18 09:21; Admin Dose 100 MLS/HR; Start 10/10/18 at 21:00 Ferric Sodium Gluconate Complex 125 mg/Sodium Chloride 110 ml @ 110 mls/hr DAILY@1300 IVPB Last administered on 10/12/18 12:44; Admin Dose 110 MLS/HR; Start 10/11/18 at 13:00; Stop 10/15/18 at 13:59 Enoxaparin Sodium (Lovenox) 40 mg DAILY SC ; Start 10/14/18 at 09:00 Dextrose/Sodium Chloride 1,000 ml @ 75 mls/hr [id number] IV Last administered on 10/12/18at 12:42; Admin Dose 75 MLS/HR; Start 10/11/18 at 23:00 Aspirin (Halfprin) 81 mg DAILY PO ; Start 10/26/18 at 09:00 Morphine Sulfate (morphine) 2 mg Q4H PRN IV SEVERE PAIN LEVEL 7-10; Start 10/12/18 at 11:30 Meds reviewed: Yes Allergies Coded Allergies: No Known Drug Allergies (Verified Allergy, Unknown, 10/02/18) Allergies Reviewed: Yes Labs/Studies Labs Reviewed: Reviewed by anesthesiologist Result Diagram: 10/11/1871510/11/18715 test: N/A Pre-procedure Exam Last vitals Vital Signs Date Temp Pulse Resp B/P (MAP) Pulse Ox O2 O2 Flow FiO2 Time Delivery Rate 10/12/18 98.2 93 16 134/81 99 Room Air 16:02 (98) Airway: Adequate mouth opening, Adequate thyromental dist Mallampati: Mallampati II Teeth: Normal Lung: Normal Heart: Normal ASA Physical Status ASA physical status: 3 Emergency: None Planned Anesthetic General/MAC: Mask Planned Pain Management Parenteral pain med Pre-operative Attestations Prior to commencing anesthesia and surgery, the patient was re-evaluated, there was verification of: *The patient's identity *The results of appropriate recent lab work and preoperative vital signs *The above evaluation not changing prior to induction *Anesthetic plan, risk benefits, alternative and complications discussed with patient/family; questions answered; patient/family understands, accepts and wishes to proceed. DOMINIQUE NERI MD Oct 12, 2018 16:18
[2018-10-12] MEDS ORDERED: PROPOFOL 40 ML ONE (16:20)
[2018-10-12] MEDS ORDERED: LIDOCAINE 2% (SDV) 5 ML INJ ONE (16:20)
--- NOTE | 2018-10-12 16:20 | HPN ---
Date/Time of Note Date/Time of Note DATE: 10/12/18 TIME: 16:20 Interval H&P Admission Note Pt. seen H&P reviewed: No system changes DILAN DIAZ Oct 12, 2018 16:20
[2018-10-12] MEDS ORDERED: PHENYLephrine (100 MCG/ML) 10ML SYG ONE (16:59)
[2018-10-12] MEDS ORDERED: PROPOFOL 20 ML ONE (16:59)
--- NOTE | 2018-10-12 17:14 | PAC ---
Date/Time of Note Date/Time of Note DATE: 10/12/18 TIME: 17:13 Post-Anesthesia Notes Post-Anesthesia Note Last documented vital signs Vital Signs Date Temp Pulse Resp B/P (MAP) Pulse Ox O2 O2 Flow FiO2 Time Delivery Rate 10/12/18 98.2 93 16 134/81 99 Room Air 16:02 (98) Activity: WNL Respiratory function: WNL Cardiovascular function: WNL Mental status: Baseline Pain reasonably controlled: Yes Hydration appropriate: Yes Nausea/Vomiting absent: Yes Comments BP: 105/66 HR: 78 RR: 15 T: 98 SaO2: 96% DOMINIQUE NERI MD Oct 12, 2018 17:14
--- NOTE | 2018-10-12 19:49 | CONS ---
Assessment/Plan Assessment/Plan Hospital Course (Demo Recall) 1330 No events, looks comfortable, no fevers Microbiology: Blood and urine cultures since admission negative stool for C. difficile came back negative intra-abdominal fluid culture grew Klebsiella pneumonia resistant only to Ancef sensitive to all other antibiotics Abx: Merrem Physical examination: Well-developed elderly -[place] man in no distress. Head atraumatic normocephalic neck is supple chest rise symmetrical breath sounds diminished bases heart S1-S2 abdomen obese soft bowel sounds present extremities without cyanosis Assessment: 1. Sepsis 2. Liver abscess status post CT-guided drainage 3. Ongoing diarrhea, C. difficile negative 4. Diabetes, poorly controlled 5. Hypertension 6. Bipolar disorder and homelessness Plan: Stable, pending colonoscopy, continue abx, f/u cxr in am, repeat cultures for temperature of 101 and above Consultation Date/Type/Reason Admit Date/Time Oct 02, 2018 at 00:05 Initial Consult Date 10/04/18 Type of Consult id Requesting Provider: HERRERA SALDAÑA NP Date/Time of Note DATE: 10/12/18 TIME: 19:48 Exam/Review of Systems Exam Vitals Vital Signs Date Temp Pulse Resp B/P (MAP) Pulse Ox O2 O2 Flow FiO2 Time Delivery Rate 10/12/18 84 23 119/77 98 Room Air 18:44 (91) 10/12/18 98.1 18:35 Intake and Output 10/11/18 10/11/18 10/12/18 1515:00 23:00 07:00 IntakeIntake Total 1110 ml 1760 ml 300 ml OutputOutput Total 1400 ml BalanceBalance -290 ml 1760 ml 300 ml Results Result Diagram: 10/11/18 0716 10/11/18 0716 Results 24hrs Laboratory Tests Test 10/11/18 21:31 10/11/18 21:48 10/11/18 22:14 10/12/18 01:23 Bedside Glucose 67 L 75 106 69 L Test 10/12/18 02:44 10/12/18 05:48 10/12/18 08:25 10/12/18 11:07 Bedside Glucose 75 68 L 86 83 Test 10/12/18 15:33 10/12/18 15:40 10/12/18 18:10 10/12/18 18:30 Bedside Glucose 44 *L 224 H 38 *L 105 Test 10/12/18 18:45 Bedside Glucose 100 Medications Medication Current Medications Buspirone HCl (Buspar) 5 mg BID PO Last administered on 10/11/18 21:33; Admin Dose 5 MG; Start 10/02/18 at 09:00 Gabapentin (Neurontin) 300 mg TID PO Last administered on 10/11/18 21:33; Admin Dose 300 MG; Start 10/02/18 at 09:00 Lisinopril (Zestril) 10 mg DAILY PO Last administered on 10/11/18 08:34; Admin Dose 10 MG; Start 10/02/18 at 09:00 Ondansetron HCl (Zofran Inj) 4 mg Q6H PRN IV NAUSEA AND/OR VOMITING; Start 10/02/18 at 02:00 Albuterol (Proventil 0.083% (Neb)) 2.5 mg Q2H RESP THERAPY PRN NEB SHORTNESS OF BREATH; Start 10/02/18 at 02:00 Acetaminophen (Tylenol Liquid) 650 mg Q6H PRN PO PAIN LEVEL 1-3 OR FEVER Last administered on 10/12/18at 13:58; Admin Dose 650 MG; Start 10/02/18 at 02:00 Menthol/Methyl Salicylate (Memo Erazo) 1 applic TID PRN TOP pain; Start 10/02/18 at 06:30 Tramadol HCl (Ultram) 50 mg Q6H PRN PO MODERATE PAIN LEVEL 4-6 Last administered on 10/08/18 08:04; Admin Dose 50 MG; Start 10/02/18 at 11:00 Potassium Chloride 50 ml @ 50 mls/hr K PROTOCOL PRN IVPB PENDING LAB VALUE Last administered on 10/03/18 09:55; Admin Dose 50 MLS/HR; Start 10/02/18 at 11:30 Potassium Chloride (Potassium Chloride Pwd/Soln) 20 meq PER PROTOCOL PRN PO POTASSIUM REPLACEMENT PROTOCOL; Start 10/02/18 at 11:30 Potassium Chloride (Potassium Chloride Pwd/Soln) 30 meq PER PROTOCOL PRN PO POTASSIUM REPLACEMENT PROTOCOL; Start 10/02/18 at 11:30 Potassium Chloride (Potassium Chloride Pwd/Soln) 40 meq PER PROTOCOL PRN PO POT ASSIUM REPLACEMENT PROTOCOL; Start 10/02/18 at 11:30 Diagnostic Test (Pha) (Accu-Chek) 1 ea 02 XX Last administered on 10/07/18at 01:23; Admin Dose 1 EA; Start 10/03/18 at 02:00 Miscellaneous Information 1 ea NOTE XX ; Start 10/02/18 at 22:00 Glucose (Glutose) 15 gm Q15M PRN PO DECREASED GLUCOSE; Start 10/02/18 at 22:00 Glucose (Glutose) 22.5 gm Q15M PRN PO DECREASED GLUCOSE; Start 10/02/18 at 2 2:00 Dextrose (D50w Syringe) 25 ml Q15M PRN IV DECREASED GLUCOSE Last administered on 10/07/18at 14:56; Admin Dose 25 ML; Start 10/02/18 at 22:00 Dextrose (D50w Syringe) 50 ml Q15M PRN IV DECREASED GLUCOSE Last administered on 10/12/18at 18:15; Admin Dose 50 ML; Start 10/02/18 at 22:00 Glucagon (Glucagen) 1 mg Q15M PRN IM DECREASED GLUCOSE; Start 10/02/18 at 22:00 Glucose (Glutose) 15 gm Q15M PRN BUCCAL DECREASED GLUCOSE; Start 10/02/18 at 22:00 Diagnostic Test (Pha) (Accu-Chek) 1 ea AC MEALS AND BEDTIME XX Last administered on 10/12/18at 11:05; Admin Dose 1 EA; Start 10/03/18 at 17:05 Calcium Carbonate (Tums) 500 mg Q4 PRN PO epigastric pain Last administered on 10/05/18at 01:34; Admin Dose 500 MG; Start 10/05/18 at 01:30 Pantoprazole (Protonix Tab) 40 mg DAILY@06 PO Last administered on 10/10/18at 05:05; Admin Dose 40 MG; Start 10/06/18 at 06:00 Lactobacillus Acidophilus/ Rhamnosus (Culturelle) 1 cap BID PO Last administered on 10/11/18at 21:33; Admin Dose 1 CAP; Start 10/08/18 at 21:00 Acetaminophen/ Hydrocodone Bitart ([place] (10/325)) 1 tab Q6H PRN PO SEVERE PAIN LEVEL 7-10 Last administered on 10/10/18at 01:47; Admin Dose 1 TAB; Start 10/08/18 at 14:30 Nicotine (Nicoderm 14 Mg/ 24hr) 1 patch DAILY TRANSDERM Last administered on 10/12/18 09:21; Admin Dose 1 PATCH; Start 10/08/18 at 14:30 Loperamide HCl (Imodium Cap) 2 mg QID PRN PO DIARRHEA; Start 10/09/18 at 12:11 Atorvastatin Calcium (Lipitor) 20 mg QHS PO ; Start 10/15/18 at 21:00 Hydrocortisone (Anusol-Hc Supp) 25 mg TID PRN [place] HEMORROID PAIN/ITCHING; Start 10/09/18 at 13:30 Potassium Chloride (Potassium Chloride Pwd/Soln) 20 meq DAILY PO Last administered on 10/11/18 08:33; Admin Dose 20 MEQ; Start 10/09/18 at 13:30 Insulin Aspart (Novolog Insulin Pen) 9 unit WITH MEALS SC Last administered on 10/11/18 17:25; Admin Dose 9 UNIT; Start 10/09/18 at 18:00 Insulin Glargine (Lantus) 27 units DAILY@0800 SC Last administered on 10/12/18 09:20; Admin Dose 27 UNITS; Start 10/10/18 at 08:00 Insulin Aspart (Novolog Insulin Pen) NOVOLOG *MODERATE* ALGORI... Q4 SC Last administered on 10/10/18 12:49; Admin Dose 2 UNIT; Start 10/10/18 at 01:00 Meropenem/Sodium Chloride 50 ml @ 100 mls/hr Q12 IVPB Last administered on 10/12/18 09:21; Admin Dose 100 MLS/HR; Start 10/10/18 at 21:00 Ferric Sodium Gluconate Complex 125 mg/Sodium Chloride 110 ml @ 110 mls/hr DAILY@1300 IVPB Last administered on 10/12/18 12:44; Admin Dose 110 MLS/HR; Start 10/11/18 at 13:00; Stop 10/15/18 at 13:59 Enoxaparin Sodium (Lovenox) 40 mg DAILY SC ; Start 10/14/18 at 09:00 Dextrose/Sodium Chloride 1,000 ml @ 75 mls/hr [id number] IV Last administered on 10/12/18 12:42; Admin Dose 75 MLS/HR; Start 10/11/18 at 23:00 Aspirin (Halfprin) 81 mg DAILY PO ; Start 10/26/18 at 09:00 Morphine Sulfate (morphine) 2 mg Q4H PRN IV SEVERE PAIN LEVEL 7-10; Start 10/12/18 at 11:30 AURORA ARZOLA NP Oct 12, 2018 19:49
[2018-10-13 01:50] VITALS: BP 118/65; PULSE 107; RESP 18
[2018-10-13] MEDS: ACCU-CHEK XX SCH ×5 (02:00→20:50)
[2018-10-13] MEDS: PANTOPRAZOLE (EC) 40 MG TAB PO SCH (06:12)
[2018-10-13] MEDS: DEXTROSE 5%-0.45% NACL 1,000 ML IV SCH ×3 (06:55→15:58)
[2018-10-13 07:45] VITALS: BP 121/72; PULSE 101; RESP 18
[2018-10-13] MEDS: NICOTINE (14 MG/24 HR) PATCH TRANSDERM SCH (09:02)
[2018-10-13] MEDS: MEROPENEM 1 GM/50ML(PMX) 50 ML IVPB SCH ×2 (09:05→20:51)
[2018-10-13] MEDS: INSULIN GLARGINE [LANTus] (100 UNITS/ML) SYG SC SCH (09:06)
[2018-10-13] MEDS: INSULIN ASPART [NOVOLOG] 3 ML PEN SC SCH ×10 (09:07→20:50)
[2018-10-13] MEDS: GABAPENTIN 300 MG CAP PO SCH ×4 (09:10→21:00)
[2018-10-13] MEDS: LISINOPRIL 10 MG TAB PO SCH (09:10)
[2018-10-13] MEDS: LACTOBACILLUS RHAMNOSUS CAP PO SCH ×3 (09:10→21:00)
[2018-10-13] MEDS: BUSPIRONE 5 MG TAB PO SCH ×3 (09:10→21:00)
[2018-10-13] MEDS: POTASSIUM CHLORIDE 20 MEQ POWDER FOR ORAL SOLN PO SCH (09:10)
--- NOTE | 2018-10-13 10:09 | PN ---
Date/Time of Note Date/Time of Note DATE: 10/13/18 TIME: 09:50 Assessment/Plan VTE Prophylaxis Risk score (from Ns)>0 risk: 3 SCD applied (from Ns): No SCD contraindicated: other (scds) Pharmacological prophylaxis: other (scds) Lines/Catheters IV [facility]ter [facility]from [facility] [place] [facility] Urinary Cath still in place: No Assessment/Plan Hospital Course Assessment/Plan Assessment: Leukocytosis- Resolved Microcytic hypochromic anemia- likely multifactorial -FBOT +, Repeat test is negative Colonoscopy 10/12/18 Sub-optimal prep Internal hemorrhoids EGD 10/12/18 Gastritis- bx pending Gastroparesis Elevated LFTs- resolved Elevated Alk phos- trending down -MRCP shows normal CBD Diarrhea - resolved -Stool cx- Coliform -C-diff negative Liver lesions x3 concerning for phelgmon/abscesses -Successful CT guided liver abscess aspiration. Due to small size of the abscess no catheter was placed. -Preliminary results show gram neg rods- pt on abx Fatty liver Diabetes mellitus- with hyperglycemia-poorly controlled HTN Hyponatremia Bipolar disorder Homelessness Eye pain Plan: Discussed results of EGD/colonoscopy- bx pending Reglan started Continue PPI tx ABX per ID Monitor labs Patient seen in collaboration with Dr. Mai/[place] Subjective: Pt now states vision to OS worse- pt states this started about 2 weeks ago, and has become progressively worse I discussed results of EGD/colonoscopy, bx pending. PT denies rectal bleeding, and diarrhea. GI sx have greatly improved. PHYSICAL EXAMINATION: GENERAL: Alert & oriented x 3, agitated SKIN: No lesions EYES: Pupils equal reactive to light, no discharge. EARS/NOSE AND THROAT: Ears normal, nose normal NECK: Supple. CHEST: Inspection within normal limits. CARDIOVASCULAR: Heart: Regular rate and rhythm RESPIRATORY: Lungs clear to auscultation GASTROINTESTINAL AND LIVER: Abdomen: Soft, non tenderness, non-distended, no hernias, no masses, no organomegaly, no ascites, no guarding, no rebound tenderness, normoactive bowel sounds. Rectal: Deferred. GENITOURINARY: Male genitalia within normal limits. EXTREMITIES: No cyanosis, clubbing or edema. Result Diagram: 10/13/18 0638 10/13/18 0638 Results 24hrs Laboratory Tests Test 10/12/18 11:07 10/12/18 15:33 10/12/18 15:40 10/12/18 18:10 Bedside Glucose 83 44 *L 224 H 38 *L Test 10/12/18 18:30 10/12/18 18:45 10/12/18 20:12 10/12/18 20:40 Bedside Glucose 105 100 62 L 57 L Test 10/12/18 21:15 10/12/18 21:38 10/13/18 02:53 10/13/18 06:10 Bedside Glucose 113 128 91 238 H Test 10/13/18 06:38 10/13/18 08:15 White Blood Count 9.0 # Red Blood Count 3.16 L Hemoglobin 7.3 L Hematocrit 24.1 L Mean Corpuscular Volume 76.3 L Mean Corpuscular 23.1 L Hemoglobin Mean Corpuscular 30.3 L Hemoglobin Concent Red Cell Distribution 15.1 H Width Platelet Count 414 Mean Platelet Volume 9.9 Immature Granulocytes % 1.000 H Neutrophils % 86.4 H Lymphocytes % 7.1 L Monocytes % 5.2 Eosinophils % 0.1 Basophils % 0.2 Nucleated Red Blood 0.0 Cells % Immature Granulocytes # 0.090 H Neutrophils # 7.8 H Lymphocytes # 0.6 L Monocytes # 0.5 Eosinophils # 0.0 Basophils # 0.0 Nucleated Red Blood 0.0 Cells # Sodium Level 135 Potassium Level 3.4 L Chloride Level 98 Carbon Dioxide Level 29 Anion Gap 8 Blood Urea Nitrogen 12 Creatinine 0.40 L Est Glomerular Filtrat > 60 Rate mL/min Glucose Level 203 Calcium Level 7.7 L Phosphorus Level 2.8 Magnesium Level 2.0 Total Bilirubin 0.1 L Direct Bilirubin 0.00 Indirect Bilirubin 0.1 Aspartate Amino 46 Transf (AST/SGOT) Alanine 47 Aminotransferase (ALT/SG PT) Alkaline Phosphatase 816 H Total Protein 5.1 L Albumin 2.2 L Globulin 2.90 Albumin/Globulin Ratio 0.75 Bedside Glucose 242 H Exam/Review of Systems Exam Vitals Vital Signs Date Temp Pulse Resp B/P (MAP) Pulse Ox O2 O2 Flow FiO2 Time Delivery Rate 10/13/18 99.5 101 18 121/72 98 Room Air 07:45 (88) Intake and Output 10/12/18 10/12/18 10/13/18 1515:00 23:00 07:00 IntakeIntake Total 750 ml 260 ml 4000 ml OutputOutput Total 950 ml BalanceBalance 750 ml 260 ml 3050 ml Results Results 24hrs Laboratory Tests Test 10/12/18 11:07 10/12/18 15:33 10/12/18 15:40 10/12/18 18:10 Bedside Glucose 83 44 *L 224 H 38 *L Test 10/12/18 18:30 10/12/18 18:45 10/12/18 20:12 10/12/18 20:40 Bedside Glucose 105 100 62 L 57 L Test 10/12/18 21:15 10/12/18 21:38 10/13/18 02:53 10/13/18 06:10 Bedside Glucose 113 128 91 238 H Test 10/13/18 06:38 10/13/18 08:15 White Blood Count 9.0 # Red Blood Count 3.16 L Hemoglobin 7.3 L Hematocrit 24.1 L Mean Corpuscular Volume 76.3 L Mean Corpuscular 23.1 L Hemoglobin Mean Corpuscular 30.3 L Hemoglobin Concent Red Cell Distribution 15.1 H Width Platelet Count 414 Mean Platelet Volume 9.9 Immature Granulocytes % 1.000 H Neutrophils % 86.4 H Lymphocytes % 7.1 L Monocytes % 5.2 Eosinophils % 0.1 Basophils % 0.2 Nucleated Red Blood 0.0 Cells % Immature Granulocytes # 0.090 H Neutrophils # 7.8 H Lymphocytes # 0.6 L Monocytes # 0.5 Eosinophils # 0.0 Basophils # 0.0 Nucleated Red Blood 0.0 Cells # Sodium Level 135 Potassium Level 3.4 L Chloride Level 98 Carbon Dioxide Level 29 Anion Gap 8 Blood Urea Nitrogen 12 Creatinine 0.40 L Est Glomerular Filtrat > 60 Rate mL/min Glucose Level 203 Calcium Level 7.7 L Phosphorus Level 2.8 Magnesium Level 2.0 Total Bilirubin 0.1 L Direct Bilirubin 0.00 Indirect Bilirubin 0.1 Aspartate Amino 46 Transf (AST/SGOT) Alanine 47 Aminotransferase (ALT/SG PT) Alkaline Phosphatase 816 H Total Protein 5.1 L Albumin 2.2 L Globulin 2.90 Albumin/Globulin Ratio 0.75 Bedside Glucose 242 H Medications Medication Current Medications Buspirone HCl (Buspar) 5 mg BID PO Last administered on 10/13/18at 09:10; Admin Dose 5 MG; Start 10/02/18 at 09:00 Gabapentin (Neurontin) 300 mg TID PO Last administered on 10/13/18 09:10; Admin Dose 300 MG; Start 10/02/18 at 09:00 Lisinopril (Zestril) 10 mg DAILY PO Last administered on 10/13/18 09:10; Admin Dose 10 MG; Start 10/02/18 at 09:00 Ondansetron HCl (Zofran Inj) 4 mg Q6H PRN IV NAUSEA AND/OR VOMITING; Start 10/02/18 at 02:00 Albuterol (Proventil 0.083% (Neb)) 2.5 mg Q2H RESP THERAPY PRN NEB SHORTNESS OF BREATH; Start 10/02/18 at 02:00 Acetaminophen (Tylenol Liquid) 650 mg Q6H PRN PO PAIN LEVEL 1-3 OR FEVER Last administered on 10/12/18 13:58; Admin Dose 650 MG; Start 10/02/18 at 02:00 Menthol/Methyl Salicylate (Memo Erazo) 1 applic TID PRN TOP pain; Start 10/02/18 at 06:30 Tramadol HCl (Ultram) 50 mg Q6H PRN PO MODERATE PAIN LEVEL 4-6 Last administered on 10/08/18 08:04; Admin Dose 50 MG; Start 10/02/18 at 11:00 Potassium Chloride 50 ml @ 50 mls/hr K PROTOCOL PRN IVPB PENDING LAB VALUE Last administered on 10/03/18 09:55; Admin Dose 50 MLS/HR; Start 10/02/18 at 11:30 Potassium Chloride (Potassium Chloride Pwd/Soln) 20 meq PER PROTOCOL PRN PO POTASSIUM REPLACEMENT PROTOCOL; Start 10/02/18 at 11:30 Potassium Chloride (Potassium Chloride Pwd/Soln) 30 meq PER PROTOCOL PRN PO POTASSIUM REPLACEMENT PROTOCOL; Start 10/02/18 at 11:30 Potassium Chloride (Potassium Chloride Pwd/Soln) 40 meq PER PROTOCOL PRN PO POTASSIUM REPLACEMENT PROTOCOL; Start 10/02/18 at 11:30 Diagnostic Test (Pha) (Accu-Chek) 1 ea 02 XX Last administered on 10/07/18 01:23; Admin Dose 1 EA; Start 10/03/18 at 02:00 Miscellaneous Information 1 ea NOTE XX ; Start 10/02/18 at 22:00 Glucose (Glutose) 15 gm Q15M PRN PO DECREASED GLUCOSE; Start 10/02/18 at 22:00 Glucose (Glutose) 22.5 gm Q15M PRN PO DECREASED GLUCOSE; Start 10/02/18 at 22:00 Dextrose (D50w Syringe) 25 ml Q15M PRN IV DECREASED GLUCOSE Last administered on 10/12/18at 20:44; Admin Dose 25 ML; Start 10/02/18 at 22:00 Dextrose (D50w Syringe) 50 ml Q15M PRN IV DECREASED GLUCOSE Last administered on 10/12/18at 18:15; Admin Dose 50 ML; Start 10/02/18 at 22:00 Glucagon (Glucagen) 1 mg Q15M PRN IM DECREASED GLUCOSE; Start 10/02/18 at 22:00 Glucose (Glutose) 15 gm Q15M PRN BUCCAL DECREASED GLUCOSE; Start 10/02/18 at 22:00 Diagnostic Test (Pha) (Accu-Chek) 1 ea AC MEALS AND BEDTIME XX Last administered on 10/12/18 11:05; Admin Dose 1 EA; Start 10/03/18 at 17:05 Calcium Carbonate (Tums) 500 mg Q4 PRN PO epigastric pain Last administered on 10/05/18 01:34; Admin Dose 500 MG; Start 10/05/18 at 01:30 Pantoprazole (Protonix Tab) 40 mg DAILY@06 PO Last administered on 10/13/18 06:12; Admin Dose 40 MG; Start 10/06/18 at 06:00 Lactobacillus Acidophilus/ Rhamnosus (Culturelle) 1 cap BID PO Last administered on 10/13/18 09:10; Admin Dose 1 CAP; Start 10/08/18 at 21:00 Acetaminophen/ Hydrocodone Bitart ([place] (10/325)) 1 tab Q6H PRN PO SEVERE PAIN LEVEL 7-10 Last administered on 10/10/18 01:47; Admin Dose 1 TAB; Start 10/08/18 at 14:30 Nicotine (Nicoderm 14 Mg/ 24hr) 1 patch DAILY TRANSDERM Last administered on 10/13/18 09:02; Admin Dose 1 PATCH; Start 10/08/18 at 14:30 Loperamide HCl (Imodium Cap) 2 mg QID PRN PO DIARRHEA; Start 10/09/18 at 12:11 Atorvastatin Calcium (Lipitor) 20 mg QHS PO ; Start 10/15/18 at 21:00 Hydrocortisone (Anusol-Hc Supp) 25 mg TID PRN WI HEMORROID PAIN/ITCHING; Start 10/09/18 at 13:30 Potassium Chloride (Potassium Chloride Pwd/Soln) 20 meq DAILY PO Last administered on 10/13/18 09:10; Admin Dose 20 MEQ; Start 10/09/18 at 13:30 Insulin Aspart (Novolog Insulin Pen) 9 unit WITH MEALS SC Last administered on 10/13/18 09:07; Admin Dose 9 UNIT; Start 10/09/18 at 18:00 Insulin Glargine (Lantus) 27 units DAILY@0800 SC Last administered on 10/13/18 09:06; Admin Dose 27 UNITS; Start 10/10/18 at 08:00 Meropenem/Sodium Chloride 50 ml @ 100 mls/hr Q12 IVPB Last administered on 10/13/18 09:05; Admin Dose 100 MLS/HR; Start 10/10/18 at 21:00 Ferric Sodium Gluconate Complex 125 mg/Sodium Chloride 110 ml @ 110 mls/hr DAILY@1300 IVPB Last administered on 10/12/18 12:44; Admin Dose 110 MLS/HR; Start 10/11/18 at 13:00; Stop 10/15/18 at 13:59 Enoxaparin Sodium (Lovenox) 40 mg DAILY SC ; Start 10/14/18 at 09:00 Dextrose/Sodium Chloride 1,000 ml @ 75 mls/hr [id number] IV Last administered on 10/12/18 12:42; Admin Dose 75 MLS/HR; Start 10/11/18 at 23:00 Aspirin (Halfprin) 81 mg DAILY PO ; Start 10/26/18 at 09:00 Morphine Sulfate (morphine) 2 mg Q4H PRN IV SEVERE PAIN LEVEL 7-10; Start 10/12/18 at 11:30 Insulin Aspart (Novolog Insulin Pen) NOVOLOG *MODERATE* ALGORITHM WITH MEALS BEDTIME SC Last administered on 10/13/18 09:09; Admin Dose 6 UNIT; Start 10/13/18 at 08:00 OLIVA BOWER Oct 13, 2018 10:00
--- NOTE | 2018-10-13 11:08 | CONS ---
Assessment/Plan Assessment/Plan Hospital Course 63 M c/ DM 2, bipolar d/o, and other comorbidities, who is admitted to [facility] for evaluation of a multitude of complaints. He reports sudden R eye vision loss on 10/13, for which neurology is consulted.. The clinical picture is most ominously concerning for an acute cerebrovascular event... A primary ophthalmologic process is additionally considered.. It is possible, too, that the Hx is unreliable..and his vision complaints are chronic and progressive...and perhaps attributable to poorly controlled DM 2... P: MRI brain for further characterization asa/lipitor daily pending the above Other management per primary Consultation Date/Type/Reason Admit Date/Time Oct 02, 2018 at 00:05 Type of Consult Neurology Requesting Provider: HERRERA SALDAÑA NP Date/Time of Note DATE: 10/13/18 TIME: 11:07 Exam/Review of Systems Exam Vitals Vital Signs Date Temp Pulse Resp B/P (MAP) Pulse Ox O2 O2 Flow FiO2 Time Delivery Rate 10/13/18 99.5 101 18 121/72 98 Room Air 07:45 (88) Intake and Output 10/12/18 10/12/18 10/13/18 1515:00 23:00 07:00 IntakeIntake Total 750 ml 260 ml 4000 ml OutputOutput Total 950 ml BalanceBalance 750 ml 260 ml 3050 ml Results Result Diagram: 10/13/18 0638 10/13/18 0638 Results 24hrs Laboratory Tests Test 10/12/18 15:33 10/12/18 15:40 10/12/18 18:10 10/12/18 18:30 Bedside Glucose 44 *L 224 H 38 *L 105 Test 10/12/18 18:45 10/12/18 20:12 10/12/18 20:40 10/12/18 21:15 Bedside Glucose 100 62 L 57 L 113 Test 10/12/18 21:38 10/13/18 02:53 10/13/18 06:10 10/13/18 06:38 Bedside Glucose 128 91 238 H White Blood Count 9.0 # Red Blood Count 3.16 L Hemoglobin 7.3 L Hematocrit 24.1 L Mean Corpuscular Volume 76.3 L Mean Corpuscular 23.1 L Hemoglobin Mean Corpuscular 30.3 L Hemoglobin Concent Red Cell Distribution 15.1 H Width Platelet Count 414 Mean Platelet Volume 9.9 Immature Granulocytes % 1.000 H Neutrophils % 86.4 H Lymphocytes % 7.1 L Monocytes % 5.2 Eosinophils % 0.1 Basophils % 0.2 Nucleated Red Blood 0.0 Cells % Immature Granulocytes # 0.090 H Neutrophils # 7.8 H Lymphocytes # 0.6 L Monocytes # 0.5 Eosinophils # 0.0 Basophils # 0.0 Nucleated Red Blood 0.0 Cells # Sodium Level 135 Potassium Level 3.4 L Chloride Level 98 Carbon Dioxide Level 29 Anion Gap 8 Blood Urea Nitrogen 12 Creatinine 0.40 L Est Glomerular Filtrat > 60 Rate mL/min Glucose Level 203 Calcium Level 7.7 L Phosphorus Level 2.8 Magnesium Level 2.0 Total Bilirubin 0.1 L Direct Bilirubin 0.00 Indirect Bilirubin 0.1 Aspartate Amino 46 Transf (AST/SGOT) Alanine 47 Aminotransferase (ALT/SG PT) Alkaline Phosphatase 816 H Total Protein 5.1 L Albumin 2.2 L Globulin 2.90 Albumin/Globulin Ratio 0.75 Test 10/13/18 08:15 Bedside Glucose 242 H Medications Medication Current Medications Buspirone HCl (Buspar) 5 mg BID PO Last administered on 10/13/18 09:10; Admin D ose 5 MG; Start 10/02/18 at 09:00 Gabapentin (Neurontin) 300 mg TID PO Last administered on 10/13/18 09:10; Admin Dose 300 MG; Start 10/02/18 at 09:00 Lisinopril (Zestril) 10 mg DAILY PO Last administered on 10/13/18 09:10; Admin Dose 10 MG; Start 10/02/18 at 09:00 Ondansetron HCl (Zofran Inj) 4 mg Q6H PRN IV NAUSEA AND/OR VOMITING; Start 10/02/18 at 02:00 Albuterol (Proventil 0.083% (Neb)) 2.5 mg Q2H RESP THERAPY PRN NEB SHORTNESS OF BREATH; Start 10/02/18 at 02:00 Acetaminophen (Tylenol Liquid) 650 mg Q6H PRN PO PAIN LEVEL 1-3 OR FEVER Last administered on 10/12/18at 13:58; Admin Dose 650 MG; Start 10/02/18 at 02:00 Menthol/Methyl Salicylate (Memo Erazo) 1 applic TID PRN TOP pain; Start 10/02/18 at 06:30 Tramadol HCl (Ultram) 50 mg Q6H PRN PO MODERATE PAIN LEVEL 4-6 Last administered on 10/08/18 08:04; Admin Dose 50 MG; Start 10/02/18 at 11:00 Potassium Chloride 50 ml @ 50 mls/hr K PROTOCOL PRN IVPB PENDING LAB VALUE Last administered on 10/03/18 09:55; Admin Dose 50 MLS/HR; Start 10/02/18 at 11:30 Potassium Chloride (Potassium Chloride Pwd/Soln) 20 meq PER PROTOCOL PRN PO POTA SSIUM REPLACEMENT PROTOCOL; Start 10/02/18 at 11:30 Potassium Chloride (Potassium Chloride Pwd/Soln) 30 meq PER PROTOCOL PRN PO POTASSIUM REPLACEMENT PROTOCOL; Start 10/02/18 at 11:30 Potassium Chloride (Potassium Chloride Pwd/Soln) 40 meq PER PROTOCOL PRN PO POTASSIUM REPLACEMENT PROTOCOL; Start 10/02/18 at 11:30 Diagnostic Test (Pha) (Accu-Chek) 1 ea 02 XX Last administered on 10/07/18 01:23; Admin Dose 1 EA; Start 10/03/18 at 02:00 Miscellaneous Information 1 ea NOTE XX ; Start 10/02/18 at 22:00 Glucose (Glutose) 15 gm Q15M PRN PO DECREASED GLUCOSE; Start 10/02/18 at 22:00 Glucose (Glutose) 22.5 gm Q15M PRN PO DECREASED GLUCOSE; Start 10/02/18 at 22:00 Dextrose (D50w Syringe) 25 ml Q15M PRN IV DECREASED GLUCOSE Last administered on 10/12/18at 20:44; Admin Dose 25 ML; Start 10/02/18 at 22:00 Dextrose (D50w Syringe) 50 ml Q15M PRN IV DECREASED GLUCOSE Last administered on 10/12/18 18:15; Admin Dose 50 ML; Start 10/02/18 at 22:00 Glucagon (Glucagen) 1 mg Q15M PRN IM DECREASED GLUCOSE; Start 10/02/18 at 22:00 Glucose (Glutose) 15 gm Q15M PRN BUCCAL DECREASED GLUCOSE; Start 10/02/18 at 22:00 Diagnostic Test (Pha) (Accu-Chek) 1 ea AC MEALS AND BEDTIME XX Last administered on 10/12/18 11:05; Admin Dose 1 EA; Start 10/03/18 at 17:05 Calcium Carbonate (Tums) 500 mg Q4 PRN PO epigastric pain Last administered on 10/05/18 01:34; Admin Dose 500 MG; Start 10/05/18 at 01:30 Pantoprazole (Protonix Tab) 40 mg DAILY@06 PO Last administered on 10/13/18 06:12; Admin Dose 40 MG; Start 10/06/18 at 06:00 Lactobacillus Acidophilus/ Rhamnosus (Culturelle) 1 cap BID PO Last administe red on 10/13/18 09:10; Admin Dose 1 CAP; Start 10/08/18 at 21:00 Acetaminophen/ Hydrocodone Bitart ([place] (10/325)) 1 tab Q6H PRN PO SEVERE PAIN LEVEL 7-10 Last administered on 10/10/18 01:47; Admin Dose 1 TAB; Start 10/08/18 at 14:30 Nicotine (Nicoderm 14 Mg/ 24hr) 1 patch DAILY TRANSDERM Last administered on 10/13/18 09:02; Admin Dose 1 PATCH; Start 10/08/18 at 14:30 Loperamide HCl (Imodium Cap) 2 mg QID PRN PO DIARRHEA; Start 10/09/18 at 12:11 Atorvastatin Calcium (Lipitor) 20 mg QHS PO ; Start 10/15/18 at 21:00 Hydrocortisone (Anusol-Hc Supp) 25 mg TID PRN CA HEMORROID PAIN/ITCHING; Start 10/09/18 at 13:30 Potassium Chloride (Potassium Chloride Pwd/Soln) 20 meq DAILY PO Last adminis tered on 10/13/18 09:10; Admin Dose 20 MEQ; Start 10/09/18 at 13:30 Insulin Aspart (Novolog Insulin Pen) 9 unit WITH MEALS SC Last administered on 10/13/18 09:07; Admin Dose 9 UNIT; Start 10/09/18 at 18:00 Insulin Glargine (Lantus) 27 units DAILY@0800 SC Last administered on 10/13/18 09:06; Admin Dose 27 UNITS; Start 10/10/18 at 08:00 Meropenem/Sodium Chloride 50 ml @ 100 mls/hr Q12 IVPB Last administered on 10/13/18 09:05; Admin Dose 100 MLS/HR; Start 10/10/18 at 21:00 Ferric Sodium Gluconate Complex 125 mg/Sodium Chloride 110 ml @ 110 mls/hr DAILY@1300 IVPB Last administered on 10/12/18at 12:44; Admin Dose 110 MLS/HR; Start 10/11/18 at 13:00; Stop 10/15/18 at 13:59 Enoxaparin Sodium (Lovenox) 40 mg DAILY SC ; Start 10/14/18 at 09:00 Dextrose/Sodium Chloride 1,000 ml @ 50 mls/hr Q20H IV Last administered on 10/12/18at 12:42; Admin Dose 75 MLS/HR; Start 10/11/18 at 23:00 Aspirin (Halfprin) 81 mg DAILY PO ; Start 10/26/18 at 09:00 Morphine Sulfate (morphine) 2 mg Q4H PRN IV SEVERE PAIN LEVEL 7-10; Start 10/12/18 at 11:30 Insulin Aspart (Novolog Insulin Pen) NOVOLOG *MODERATE* ALGORITHM WITH MEALS BEDTIME SC Last administered on 10/13/18at 09:09; Admin Dose 6 UNIT; Start 10/13/18 at 08:00 Metoclopramide HCl (Reglan) 5 mg TID PO ; Start 10/13/18 at 13:00 Sucralfate (Carafate) 1 gm QID PO ; Start 10/13/18 at 13:00 Past Medical History Medical History: diabetes, other (bipolar) Home Meds Active Scripts Metformin Hcl (Glucophage) 500 Mg Tablet, 500 MG PO WITH BREAKFAST DINNE, #30 TAB Prov:NIK CHANDRA MD 08/05/18 Insulin Lispro (Humalog Kwikpen U-100) 100 Unit/1 Ml Insuln.pen, 15 UNIT SQ AC A for 30 Days, EA Prov:NIK CHANDRA MD 08/05/18 Insulin Regular, Human (Humulin R) 100 Unit/1 Ml Vial, 5 UNIT IJ TID for 30 Days, VIAL Prov:NIK CHANDRA MD 08/05/18 Insulin Lispro (Humalog Kwikpen U-100) 100 Unit/1 Ml Insuln.pen, 32 UNIT SQ Daily at Bedtime for 30 Days, #30 Prov:NIK CHANDRA MD 08/05/18 Reported Medications Buspirone Hcl* (Buspirone Hcl*) 10 Mg Tab, 5 MG PO BID, TAB 08/05/18 Lisinopril* (Lisinopril*) 10 Mg Tablet, 10 MG PO DAILY, #30 TAB 08/05/18 Insulin Glargine,Hum.rec.anlog (Basaglar Kwikpen U-100) 100 Unit/1 Ml Insuln.pen, 32 UNIT SC QHS, EA 08/05/18 Insulin Regular, Human (Humulin R) 100 Unit/1 Ml Vial, 5 UNIT IJ TID, VIAL 08/05/18 Insulin Lispro (Humalog Kwikpen U-100) 100 Unit/1 Ml Insuln.pen, 15 UNIT SQ AC A, EA 08/05/18 Atorvastatin Calcium* (Atorvastatin Calcium*) 20 Mg Tablet, 20 MG PO QHS, #30 TAB 08/05/18 Gabapentin* (Gabapentin*) 300 Mg Capsule, 300 MG PO TID, #90 CAP 08/05/18 Metformin Hcl* (Metformin Hcl*) 500 Mg Tablet, 500 MG PO WITH BREAKFAST DINNE, #60 TAB 08/05/18 Docusate Sodium* (Dok*) 100 Mg Tablet, 100 MG PO BID, #60 CAP 08/05/18 Ferrous Sulfate* (Ferrous Sulfate*) 325 Mg Tabec, 325 MG PO BID, TAB 08/05/18 Aspirin (Low Dose Aspirin) 81 Mg Tablet.dr, 81 MG PO DAILY, #30 TAB 08/05/18 Medications Current Medications Buspirone HCl (Buspar) 5 mg BID PO Last administered on 10/13/18at 09:10; Admin Dose 5 MG; Start 10/02/18 at 09:00 Gabapentin (Neurontin) 300 mg TID PO Last administered on 10/13/18at 09:10; Admin Dose 300 MG; Start 10/02/18 at 09:00 Lisinopril (Zestril) 10 mg DAILY PO Last administered on 10/13/18 09:10; Admin Dose 10 MG; Start 10/02/18 at 09:00 Ondansetron HCl (Zofran Inj) 4 mg Q6H PRN IV NAUSEA AND/OR VOMITING; Start 10/02/18 at 02:00 Albuterol (Proventil 0.083% (Neb)) 2.5 mg Q2H RESP THERAPY PRN NEB SHORTNESS OF BREATH; Start 10/02/18 at 02:00 Acetaminophen (Tylenol Liquid) 650 mg Q6H PRN PO PAIN LEVEL 1-3 OR FEVER Last administered on 10/12/18 13:58; Admin Dose 650 MG; Start 10/02/18 at 02:00 Menthol/Methyl Salicylate (Memo Erazo) 1 applic TID PRN TOP pain; Start 10/02/18 at 06:30 Tramadol HCl (Ultram) 50 mg Q6H PRN PO MODERATE PAIN LEVEL 4-6 Last administer ed on 10/08/18 08:04; Admin Dose 50 MG; Start 10/02/18 at 11:00 Potassium Chloride 50 ml @ 50 mls/hr K PROTOCOL PRN IVPB PENDING LAB VALUE Last administered on 10/03/18 09:55; Admin Dose 50 MLS/HR; Start 10/02/18 at 11:30 Potassium Chloride (Potassium Chloride Pwd/Soln) 20 meq PER PROTOCOL PRN PO POTASSIUM REPLACEMENT PROTOCOL; Start 10/02/18 at 11:30 Potassium Chloride (Potassium Chloride Pwd/Soln) 30 meq PER PROTOCOL PRN PO POTASSIUM REPLACEMENT PROTOCOL; Start 10/02/18 at 11:30 Potassium Chloride (Potassium Chloride Pwd/Soln) 40 meq PER PROTOCOL PRN PO POTASSIUM REPLACEMENT PROTOCOL; Start 10/02/18 at 11:30 Diagnostic Test (Pha) (Accu-Chek) 1 ea 02 XX Last administered on 10/07/18 01: 23; Admin Dose 1 EA; Start 10/03/18 at 02:00 Miscellaneous Information 1 ea NOTE XX ; Start 10/02/18 at 22:00 Glucose (Glutose) 15 gm Q15M PRN PO DECREASED GLUCOSE; Start 10/02/18 at 22:00 Glucose (Glutose) 22.5 gm Q15M PRN PO DECREASED GLUCOSE; Start 10/02/18 at 22:00 Dextrose (D50w Syringe) 25 ml Q15M PRN IV DECREASED GLUCOSE Last administered on 10/12/18 20:44; Admin Dose 25 ML; Start 10/02/18 at 22:00 Dextrose (D50w Syringe) 50 ml Q15M PRN IV DECREASED GLUCOSE Last administered on 10/12/18 18:15; Admin Dose 50 ML; Start 10/02/18 at 22:00 Glucagon (Glucagen) 1 mg Q15M PRN IM DECREASED GLUCOSE; Start 10/02/18 at 22:00 Glucose (Glutose) 15 gm Q15M PRN BUCCAL DECREASED GLUCOSE; Start 10/02/18 at 22:00 Diagnostic Test (Pha) (Accu-Chek) 1 ea AC MEALS AND BEDTIME XX Last administered on 10/12/18 11:05; Admin Dose 1 EA; Start 10/03/18 at 17:05 Calcium Carbonate (Tums) 500 mg Q4 PRN PO epigastric pain Last administered on 10/05/18 01:34; Admin Dose 500 MG; Start 10/05/18 at 01:30 Pantoprazole (Protonix Tab) 40 mg DAILY@06 PO Last administered on 10/13/18 06:12; Admin Dose 40 MG; Start 10/06/18 at 06:00 Lactobacillus Acidophilus/ Rhamnosus (Culturelle) 1 cap BID PO Last admin istered on 10/13/18 09:10; Admin Dose 1 CAP; Start 10/08/18 at 21:00 Acetaminophen/ Hydrocodone Bitart ([place] (10/325)) 1 tab Q6H PRN PO SEVERE PAIN LEVEL 7-10 Last administered on 10/10/18 01:47; Admin Dose 1 TAB; Start 10/08/18 at 14:30 Nicotine (Nicoderm 14 Mg/ 24hr) 1 patch DAILY TRANSDERM Last administered on 10/13/18 09:02; Admin Dose 1 PATCH; Start 10/08/18 at 14:30 Loperamide HCl (Imodium Cap) 2 mg QID PRN PO DIARRHEA; Start 10/09/18 at 12:11 Atorvastatin Calcium (Lipitor) 20 mg QHS PO ; Start 10/15/18 at 21:00 Hydrocortisone (Anusol-Hc Supp) 25 mg TID PRN CA HEMORROID PAIN/ITCHING; Start 10/09/18 at 13:30 Potassium Chloride (Potassium Chloride Pwd/Soln) 20 meq DAILY PO Last adm inistered on 10/13/18 09:10; Admin Dose 20 MEQ; Start 10/09/18 at 13:30 Insulin Aspart (Novolog Insulin Pen) 9 unit WITH MEALS SC Last administered on 10/13/18 09:07; Admin Dose 9 UNIT; Start 10/09/18 at 18:00 Insulin Glargine (Lantus) 27 units DAILY@0800 SC Last administered on 10/13/18at 09:06; Admin Dose 27 UNITS; Start 10/10/18 at 08:00 Meropenem/Sodium Chloride 50 ml @ 100 mls/hr Q12 IVPB Last administered on 10/13/18at 09:05; Admin Dose 100 MLS/HR; Start 10/10/18 at 21:00 Ferric Sodium Gluconate Complex 125 mg/Sodium Chloride 110 ml @ 110 mls/hr DAILY@1300 IVPB Last administered on 10/12/18at 12:44; Admin Dose 110 MLS/HR; Start 10/11/18 at 13:00; Stop 10/15/18 at 13:59 Enoxaparin Sodium (Lovenox) 40 mg DAILY SC ; Start 10/14/18 at 09:00 Dextrose/Sodium Chloride 1,000 ml @ 50 mls/hr Q20H IV Last administered on 10/12/18at 12:42; Admin Dose 75 MLS/HR; Start 10/11/18 at 23:00 Aspirin (Halfprin) 81 mg DAILY PO ; Start 10/26/18 at 09:00 Morphine Sulfate (morphine) 2 mg Q4H PRN IV SEVERE PAIN LEVEL 7-10; Start 10/12/18 at 11:30 Insulin Aspart (Novolog Insulin Pen) NOVOLOG *MODERATE* ALGORITHM WITH MEALS BEDTIME SC Last administered on 10/13/18at 09:09; Admin Dose 6 UNIT; Start at 08:00 Metoclopramide HCl (Reglan) 5 mg TID PO ; Start 10/13/18 at 13:00 Sucralfate (Carafate) 1 gm QID PO ; Start 10/13/18 at 13:00 Allergies: Coded Allergies: No Known Drug Allergies (Verified Allergy, Unknown, 10/02/18) Past Surgical History Past Surgical Hx: no surgical history Social History Smoking Status: Current every day smoker Drug Use: other GURMEET SUMMERS NP Oct 13, 2018 11:08 NOLAN CALZADA Oct 13, 2018 11:55
--- NOTE | 2018-10-13 12:54 | CONS ---
Assessment/Plan Assessment/Plan Hospital Course (Demo Recall) ID PROGRESS NOTE CURRENT ABX: DAY # Merrem 10/13/18 0638 10/13/18 0638 24H INTERVAL SUMMARY * TMax 99.5 - WBC normalized, patient is resting with eyes closed VSS, NAD * He reported sudden R eye vision loss on 10/13 ==DM vs stroke per MRI Brain DIAGNOSTIC IMAGING * 10/13/18 CXR: IMPRESSION: Increased bibasilar infiltrates concerning for multifocal pneumonia. Minimally increased bilateral pleural effusions. * 10/13/18 CT Brain: 1. Moderate generalized cerebral volume loss and mild nonspecific chronic microvascular ischemic disease. 2. No evidence of in tracranial masses hemorrhages or midline shift. * 10/13/18 MRI Brain: * 1. Linear focus of diffusion signal hyperintensity in the posterior frontal right centrum [place] without evidence of diffusion restriction. These findings are suggestive of subacute/late subacute lacunar infarct. * 2. No intracranial hemorrhage, edema, mass effect, or shift. * 3. Scattered periventricular and subcortical white matter T2 / FLAIR signal hyperintensity foci compatible with moderate to marked chronic microvascular ischemic changes. Vasculopathy/arteriopathy, or demyelinating disease could have a similar appearance. * 4. Moderate generalized volume loss. * 5. Bilateral small mastoid effusions. MICRO/OTHER * 10/09/18 Hepatic Drain Cx: BODY FLUID CULTURE Final Organism 1 K.PNEUMONIAE SSP PNEUMONIAE QUANTITY 4+ K PNE SPP M.I.C. RX --------- --- CEFAZOLIN R CEFOTAXIME S CIPROFLOXACIN <=0.25 S GENTAMICIN <=1 S LEVOFLOXACIN <=0.12 S TOBRAMYCIN <=1 S TRIMETHOPRIM/SULFAMETHOXAZOLE <=20 S * (-)C.Diff * (-)MRSA * 10/09/18 uRINE cX (-) * 10/01/18 and 10/11/18 BCX (-) PHYSICAL EXAMINATION: GENERAL: VSS HEENT: AT, NC, anicteric NECK: Supple, CHEST: Equal chest rise bilaterally, without dyspnea on observation HEART: Pulse RRR ABDOMEN: Drain present EXTREMITIES: Warm, dry SKIN: No rash, no diaphoresis ID ASSESSMENT 63 yo M admit with: 1. GNR Sepsis w/low grade temps, leukocytosis resolved => Improving 2. Liver abscess status post CT-guided drainage * 10/09/18 Hepatic Drain Cx: BODY FLUID CULTURE Final Organism 1 K.PNEUMONIAE SSP PNEUMONIAE QUANTITY 4+ * Elevated LFTs- resolved * Elevated Alk phos- trending down * MRCP shows normal CBD * Fatty liver 3. Sudden R eye vision loss on 10/13 4. Diabetes, poorly controlled 5. Hypertension 6. Ongoing diarrhea, C. difficile negative 7. Anemia -FBOT +, Repeat test is negative Colonoscopy 10/12/18 Sub-optimal prep Internal hemorrhoids EGD 10/12/18 Gastritis- bx pending Gastroparesis due to DM 8. Bipolar disorder 9. Substance abuse: METH 10. Homelessness (-)MRSA Nares ABX ALLERGIES: KNDA INVASIVES: PIV CURRENT ABX: DAY #Merrem ID RECOMMENDATIONS/PLAN: 1. Continue current ABX 2. ID RN LICENSED PRACTICAL colleague to f/u tomorrow Consultation Date/Type/Reason Admit Date/Time Oct 02, 2018 at 00:05 Initial Consult Date 10/04/18 Requesting Provider: HERRERA SALDAÑA NP Date/Time of Note DATE: 10/13/18 TIME: 12:54 Exam/Review of Systems Exam Vitals Vital Signs Date Temp Pulse Resp B/P (MAP) Pulse Ox O2 O2 Flow FiO2 Time Delivery Rate 10/13/18 99.5 101 18 121/72 98 Room Air 07:45 (88) Intake and Output 10/12/18 10/12/18 10/13/18 1515:00 23:00 07:00 IntakeIntake Total 750 ml 260 ml 4000 ml OutputOutput Total 950 ml BalanceBalance 750 ml 260 ml 3050 ml Results Result Diagram: 10/13/18 0638 10/13/18 0638 Results 24hrs Laboratory Tests Test 10/12/18 15:33 10/12/18 15:40 10/12/18 18:10 10/12/18 18:30 Bedside Glucose 44 *L 224 H 38 *L 105 Test 10/12/18 18:45 10/12/18 20:12 10/12/18 20:40 10/12/18 21:15 Bedside Glucose 100 62 L 57 L 113 Test 10/12/18 21:38 10/13/18 02:53 10/13/18 06:10 10/13/18 06:38 Bedside Glucose 128 91 238 H White Blood Count 9.0 # Red Blood Count 3.16 L Hemoglobin 7.3 L Hematocrit 24.1 L Mean Corpuscular Volume 76.3 L Mean Corpuscular 23.1 L Hemoglobin Mean Corpuscular 30.3 L Hemoglobin Concent Red Cell Distribution 15.1 H Width Platelet Count 414 Mean Platelet Volume 9.9 Immature Granulocytes % 1.000 H Neutrophils % 86.4 H Lymphocytes % 7.1 L Monocytes % 5.2 Eosinophils % 0.1 Basophils % 0.2 Nucleated Red Blood 0.0 Cells % Immature Granulocytes # 0.090 H Neutrophils # 7.8 H Lymphocytes # 0.6 L Monocytes # 0.5 Eosinophils # 0.0 Basophils # 0.0 Nucleated Red Blood 0.0 Cells # Sodium Level 135 Potassium Level 3.4 L Chloride Level 98 Carbon Dioxide Level 29 Anion Gap 8 Blood Urea Nitrogen 12 Creatinine 0.40 L Est Glomerular Filtrat > 60 Rate mL/min Glucose Level 203 Calcium Level 7.7 L Phosphorus Level 2.8 Magnesium Level 2.0 Total Bilirubin 0.1 L Direct Bilirubin 0.00 Indirect Bilirubin 0.1 Aspartate Amino 46 Transf (AST/SGOT) Alanine 47 Aminotransferase (ALT/SG PT) Alkaline Phosphatase 816 H Total Protein 5.1 L Albumin 2.2 L Globulin 2.90 Albumin/Globulin Ratio 0.75 Test 10/13/18 08:15 Bedside Glucose 242 H Medications Medication Current Medications Buspirone HCl (Buspar) 5 mg BID PO Last administered on 10/13/18 09:10; Admin Dose 5 MG; Start 10/02/18 at 09:00 Gabapentin (Neurontin) 300 mg TID PO Last administered on 10/13/18 09:10; Admin Dose 300 MG; Start 10/02/18 at 09:00 Lisinopril (Zestril) 10 mg DAILY PO Last administered on 10/13/18 09:10; Admin Dose 10 MG; Start 10/02/18 at 09:00 Ondansetron HCl (Zofran Inj) 4 mg Q6H PRN IV NAUSEA AND/OR VOMITING; Start 10/02/18 at 02:00 Albuterol (Proventil 0.083% (Neb)) 2.5 mg Q2H RESP THERAPY PRN NEB SHORTNESS OF BREATH; Start 10/02/18 at 02:00 Acetaminophen (Tylenol Liquid) 650 mg Q6H PRN PO PAIN LEVEL 1-3 OR FEVER Last administered on 10/12/18 13:58; Admin Dose 650 MG; Start 10/02/18 at 02:00 Menthol/Methyl Salicylate (Memo Erazo) 1 applic TID PRN TOP pain; Start 10/02/18 at 06:30 Tramadol HCl (Ultram) 50 mg Q6H PRN PO MODERATE PAIN LEVEL 4-6 Last administered on 10/08/18 08:04; Admin Dose 50 MG; Start 10/02/18 at 11:00 Potassium Chloride 50 ml @ 50 mls/hr K PROTOCOL PRN IVPB PENDING LAB VALUE Last administered on 10/03/18 09:55; Admin Dose 50 MLS/HR; Start 10/02/18 at 11:30 Potassium Chloride (Potassium Chloride Pwd/Soln) 20 meq PER PROTOCOL PRN PO POTASSIUM REPLACEMENT PROTOCOL; Start 10/02/18 at 11:30 Potassium Chloride (Potassium Chloride Pwd/Soln) 30 meq PER PROTOCOL PRN PO POTASSIUM REPLACEMENT PROTOCOL; Start 10/02/18 at 11:30 Potassium Chloride (Potassium Chloride Pwd/Soln) 40 meq PER PROTOCOL PRN PO POTASSIUM REPLACEMENT PROTOCOL; Start 10/02/18 at 11:30 Diagnostic Test (Pha) (Accu-Chek) 1 ea 02 XX Last administered on 10/07/18 01:23; Admin Dose 1 EA; Start 10/03/18 at 02:00 Miscellaneous Information 1 ea NOTE XX ; Start 10/02/18 at 22:00 Glucose (Glutose) 15 gm Q15M PRN PO DECREASED GLUCOSE; Start 10/02/18 at 22:00 Glucose (Glutose) 22.5 gm Q15M PRN PO DECREASED GLUCOSE; Start 10/02/18 at 22:00 Dextrose (D50w Syringe) 25 ml Q15M PRN IV DECREASED GLUCOSE Last administered on 10/12/18at 20:44; Admin Dose 25 ML; Start 10/02/18 at 22:00 Dextrose (D50w Syringe) 50 ml Q15M PRN IV DECREASED GLUCOSE Last administered on 10/12/18 18:15; Admin Dose 50 ML; Start 10/02/18 at 22:00 Glucagon (Glucagen) 1 mg Q15M PRN IM DECREASED GLUCOSE; Start 10/02/18 at 22:00 Glucose (Glutose) 15 gm Q15M PRN BUCCAL DECREASED GLUCOSE; Start 10/02/18 at 22:00 Diagnostic Test (Pha) (Accu-Chek) 1 ea AC MEALS AND BEDTIME XX Last administered on 10/12/18 11:05; Admin Dose 1 EA; Start 10/03/18 at 17:05 Calcium Carbonate (Tums) 500 mg Q4 PRN PO epigastric pain Last administered on 10/05/18 01:34; Admin Dose 500 MG; Start 10/05/18 at 01:30 Pantoprazole (Protonix Tab) 40 mg DAILY@06 PO Last administered on 10/13/18 06: 12; Admin Dose 40 MG; Start 10/06/18 at 06:00 Lactobacillus Acidophilus/ Rhamnosus (Culturelle) 1 cap BID PO Last administered on 10/13/18 09:10; Admin Dose 1 CAP; Start 10/08/18 at 21:00 Acetaminophen/ Hydrocodone Bitart ([place] (10/325)) 1 tab Q6H PRN PO SEVERE PAIN LEVEL 7-10 Last administered on 10/10/18 01:47; Admin Dose 1 TAB; Start 10/08/18 at 14:30 Nicotine (Nicoderm 14 Mg/ 24hr) 1 patch DAILY TRANSDERM Last administered on 10/13/18 09:02; Admin Dose 1 PATCH; Start 10/08/18 at 14:30 Loperamide HCl (Imodium Cap) 2 mg QID PRN PO DIARRHEA; Start 10/09/18 at 12:11 Atorvastatin Calcium (Lipitor) 20 mg QHS PO ; Start 10/15/18 at 21:00 Hydrocortisone (Anusol-Hc Supp) 25 mg TID PRN SC HEMORROID PAIN/ITCHING; Start 10/09/18 at 13:30 Potassium Chloride (Potassium Chloride Pwd/Soln) 20 meq DAILY PO Last administered on 10/13/18 09:10; Admin Dose 20 MEQ; Start 10/09/18 at 13:30 Insulin Aspart (Novolog Insulin Pen) 9 unit WITH MEALS SC Last administered on 10/13/18 09:07; Admin Dose 9 UNIT; Start 10/09/18 at 18:00 Insulin Glargine (Lantus) 27 units DAILY@0800 SC Last administered on 10/13/18at 09:06; Admin Dose 27 UNITS; Start 10/10/18 at 08:00 Meropenem/Sodium Chloride 50 ml @ 100 mls/hr Q12 IVPB Last administered on 10/13/18at 09:05; Admin Dose 100 MLS/HR; Start 10/10/18 at 21:00 Ferric Sodium Gluconate Complex 125 mg/Sodium Chloride 110 ml @ 110 mls/hr DAILY@1300 IVPB Last administered on 10/12/18at 12:44; Admin Dose 110 MLS/HR; Start 10/11/18 at 13:00; Stop 10/15/18 at 13:59 Enoxaparin Sodium (Lovenox) 40 mg DAILY SC ; Start 10/14/18 at 09:00 Dextrose/Sodium Chloride 1,000 ml @ 50 mls/hr Q20H IV Last administered on 10/12/18at 12:42; Admin Dose 75 MLS/HR; Start 10/11/18 at 23:00 Aspirin (Halfprin) 81 mg DAILY PO ; Start 10/26/18 at 09:00 Morphine Sulfate (morphine) 2 mg Q4H PRN IV SEVERE PAIN LEVEL 7-10; Start 10/12/18 at 11:30 Insulin Aspart (Novolog Insulin Pen) NOVOLOG *MODERATE* ALGORITHM WITH MEALS BEDTIME SC Last administered on 10/13/18 09:09; Admin Dose 6 UNIT; Start 10/13/18 at 08:00 Metoclopramide HCl (Reglan) 5 mg TID PO ; Start 10/13/18 at 13:00 Sucralfate (Carafate) 1 gm QID PO ; Start 10/13/18 at 13:00 MARLENY FRIEDMAN NP Oct 13, 2018 12:54
[2018-10-13] MEDS: SUCRALFATE 1 GM TAB PO SCH ×4 (12:58→21:00)
[2018-10-13] MEDS: METOCLOPRAMIDE 5 MG TAB PO SCH ×3 (12:58→21:00)
[2018-10-13] MEDS: SOD FERRIC GLUC COMPLX 125 MG in SOD CHLORIDE 0.9% 100 ML IVPB SCH (12:59)
[2018-10-13] MEDS: HYDROCODONE/APAP (10/325) TAB PO PRN (13:11)
[2018-10-13 14:20] VITALS: BP 145/76; PULSE 104; RESP 18
--- NOTE | 2018-10-13 15:07 | CONS ---
Assessment/Plan Assessment/Plan Assessment/Plan (Daily) #Anemia- Hgb 7.4 today -pt has a low iron saturation in the setting of a high ferritin and low TIBC. This is most consistent with anemia of chronic inflammation as well as a component of iron deficiency -pt definitely needs GI eval for iron deficiency anemia. he is currently refusing the bowel prep -his chronic inflammation is likely from his uncontrolled diabetes -he is already s/p 5 days of IV iron but we will order another 5 days given he remains so iron deficient -ok to transfuse at this time -mildly high LDH with normal haptoglobin rules out hemolysis. If patient did have hemolysis, his haptoglobin would be undetectable #DM -continue insulin per primary team #Bipolar -continue mood stabilizers Patient is seen in collaboration with Dr Nunez. staff. Consultation Date/Type/Reason Admit Date/Time Oct 02, 2018 at 00:05 Initial Consult Date 10/04/18 Type of Consult oncology Reason for Consultation Anemia Requesting Provider: HERRERA SALDAÑA NP Date/Time of Note DATE: 10/13/18 TIME: 15:06 24 HR Interval Summary Free Text/Dictation - seems comfortable - denies any complaints -no new issues reported last night Detailed Summary Eyes: no complaints ENT: no complaints Respiratory: no complaints Cardiovascular: no complaints Gastrointestinal: no complaints Genitourinary: no complaints Musculoskeletal: no complaints Skin: no complaints Neurologic: no complaints Exam/Review of Systems Exam Vitals Vital Signs Date Temp Pulse Resp B/P (MAP) Pulse Ox O2 O2 Flow FiO2 Time Delivery Rate 10/13/18 99.5 104 18 145/76 99 Room Air 14:20 (99) Intake and Output 10/12/18 10/12/18 10/13/18 1515:00 23:00 07:00 IntakeIntake Total 750 ml 260 ml 4000 ml OutputOutput Total 950 ml BalanceBalance 750 ml 260 ml 3050 ml Constitutional: alert, oriented, well developed Psych: nl mood/affect Head: normocephalic Eyes: nl lids, nl sclera ENMT: nl external ears & nose Neck: non-tender Respiratory: clear to auscultation Cardiovascular: nl pulses, other (s1s2) Gastrointestinal: soft, non-tender Musculoskeletal: nl extremities to inspection Extremities: normal pulses Neurological: nl mental status, nl speech Lymph: nontender Results Result Diagram: 10/13/18 0638 10/13/18 0638 Results 24hrs Laboratory Tests Test 10/12/18 15:33 10/12/18 15:40 10/12/18 18:10 10/12/18 18:30 Bedside Glucose 44 *L 224 H 38 *L 105 Test 10/12/18 18:45 10/12/18 20:12 10/12/18 20:40 10/12/18 21:15 Bedside Glucose 100 62 L 57 L 113 Test 10/12/18 21:38 10/13/18 02:53 10/13/18 06:10 10/13/18 06:38 Bedside Glucose 128 91 238 H White Blood Count 9.0 # Red Blood Count 3.16 L Hemoglobin 7.3 L Hematocrit 24.1 L Mean Corpuscular Volume 76.3 L Mean Corpuscular 23.1 L Hemoglobin Mean Corpuscular 30.3 L Hemoglobin Concent Red Cell Distribution 15.1 H Width Platelet Count 414 Mean Platelet Volume 9.9 Immature Granulocytes % 1.000 H Neutrophils % 86.4 H Lymphocytes % 7.1 L Monocytes % 5.2 Eosinophils % 0.1 Basophils % 0.2 Nucleated Red Blood 0.0 Cells % Immature Granulocytes # 0.090 H Neutrophils # 7.8 H Lymphocytes # 0.6 L Monocytes # 0.5 Eosinophils # 0.0 Basophils # 0.0 Nucleated Red Blood 0.0 Cells # Sodium Level 135 Potassium Level 3.4 L Chloride Level 98 Carbon Dioxide Level 29 Anion Gap 8 Blood Urea Nitrogen 12 Creatinine 0.40 L Est Glomerular Filtrat > 60 Rate mL/min Glucose Level 203 Calcium Level 7.7 L Phosphorus Level 2.8 Magnesium Level 2.0 Total Bilirubin 0.1 L Direct Bilirubin 0.00 Indirect Bilirubin 0.1 Aspartate Amino 46 Transf (AST/SGOT) Alanine 47 Aminotransferase (ALT/SG PT) Alkaline Phosphatase 816 H Total Protein 5.1 L Albumin 2.2 L Globulin 2.90 Albumin/Globulin Ratio 0.75 Test 10/13/18 08:15 10/13/18 13:02 Bedside Glucose 242 H 221 H Medications Medication Current Medications Buspirone HCl (Buspar) 5 mg BID PO Last administered on 10/13/18at 09:10; Admin Dose 5 MG; Start 10/02/18 at 09:00 Gabapentin (Neurontin) 300 mg TID PO Last administered on 10/13/18 12:58; Admin Dose 300 MG; Start 10/02/18 at 09:00 Lisinopril (Zestril) 10 mg DAILY PO Last administered on 10/13/18 09:10; Admin Dose 10 MG; Start 10/02/18 at 09:00 Ondansetron HCl (Zofran Inj) 4 mg Q6H PRN IV NAUSEA AND/OR VOMITING; Start 10/02/18 at 02:00 Albuterol (Proventil 0.083% (Neb)) 2.5 mg Q2H RESP THERAPY PRN NEB SHORTNESS OF BREATH; Start 10/02/18 at 02:00 Acetaminophen (Tylenol Liquid) 650 mg Q6H PRN PO PAIN LEVEL 1-3 OR FEVER Last administered on 10/12/18 13:58; Admin Dose 650 MG; Start 10/02/18 at 02:00 Menthol/Methyl Salicylate (Memo Erazo) 1 applic TID PRN TOP pain; Start 10/02/18 at 06:30 Tramadol HCl (Ultram) 50 mg Q6H PRN PO MODERATE PAIN LEVEL 4-6 Last administered on 10/08/18 08:04; Admin Dose 50 MG; Start 10/02/18 at 11:00 Potassium Chloride 50 ml @ 50 mls/hr K PROTOCOL PRN IVPB PENDING LAB VALUE Last administered on 10/03/18 09:55; Admin Dose 50 MLS/HR; Start 10/02/18 at 11:30 Potassium Chloride (Potassium Chloride Pwd/Soln) 20 meq PER PROTOCOL PRN PO POTASSIUM REPLACEMENT PROTOCOL; Start 10/02/18 at 11:30 Potassium Chloride (Potassium Chloride Pwd/Soln) 30 meq PER PROTOCOL PRN PO POTASSIUM REPLACEMENT PROTOCOL; Start 10/02/18 at 11:30 Potassium Chloride (Potassium Chloride Pwd/Soln) 40 meq PER PROTOCOL PRN PO POTASSIUM REPLACEMENT PROTOCOL; Start 10/02/18 at 11:30 Diagnostic Test (Pha) (Accu-Chek) 1 ea 02 XX Last administered on 10/07/18 01:23; Admin Dose 1 EA; Start 10/03/18 at 02:00 Miscellaneous Information 1 ea NOTE XX ; Start 10/02/18 at 22:00 Glucose (Glutose) 15 gm Q15M PRN PO DECREASED GLUCOSE; Start 10/02/18 at 22:00 Glucose (Glutose) 22.5 gm Q15M PRN PO DECREASED GLUCOSE; Start 10/02/18 at 22:00 Dextrose (D50w Syringe) 25 ml Q15M PRN IV DECREASED GLUCOSE Last administered on 10/12/18 20:44; Admin Dose 25 ML; Start 10/02/18 at 22:00 Dextrose (D50w Syringe) 50 ml Q15M PRN IV DECREASED GLUCOSE Last administered on 10/12/18 18:15; Admin Dose 50 ML; Start 10/02/18 at 22:00 Glucagon (Glucagen) 1 mg Q15M PRN IM DECREASED GLUCOSE; Start 10/02/18 at 22:00 Glucose (Glutose) 15 gm Q15M PRN BUCCAL DECREASED GLUCOSE; Start 10/02/18 at 22:00 Diagnostic Test (Pha) (Accu-Chek) 1 ea AC MEALS AND BEDTIME XX Last administered on 10/12/18 11:05; Admin Dose 1 EA; Start 10/03/18 at 17:05 Calcium Carbonate (Tums) 500 mg Q4 PRN PO epigastric pain Last administered on 10/05/18 01:34; Admin Dose 500 MG; Start 10/05/18 at 01:30 Pantoprazole (Protonix Tab) 40 mg DAILY@06 PO Last administered on 10/13/18 06:12; Admin Dose 40 MG; Start 10/06/18 at 06:00 Lactobacillus Acidophilus/ Rhamnosus (Culturelle) 1 cap BID PO Last administered on 10/13/18 09:10; Admin Dose 1 CAP; Start 10/08/18 at 21:00 Acetaminophen/ Hydrocodone Bitart (Ada (10/325)) 1 tab Q6H PRN PO SEVERE PAIN LEVEL 7-10 Last administered on 10/13/18 13:11; Admin Dose 1 TAB; Start 10/08/18 at 14:30 Nicotine (Nicoderm 14 Mg/ 24hr) 1 patch DAILY TRANSDERM Last administered on 10/13/18 09:02; Admin Dose 1 PATCH; Start 10/08/18 at 14:30 Loperamide HCl (Imodium Cap) 2 mg QID PRN PO DIARRHEA; Start 10/09/18 at 12:11 Atorvastatin Calcium (Lipitor) 20 mg QHS PO ; Start 10/15/18 at 21:00 Hydrocortisone (Anusol-Hc Supp) 25 mg TID PRN [place] HEMORROID PAIN/ITCHING; Start 10/09/18 at 13:30 Potassium Chloride (Potassium Chloride Pwd/Soln) 20 meq DAILY PO Last administered on 10/13/18 09:10; Admin Dose 20 MEQ; Start 10/09/18 at 13:30 Insulin Aspart (Novolog Insulin Pen) 9 unit WITH MEALS SC Last administered on 10/13/18 13:15; Admin Dose 9 UNIT; Start 10/09/18 at 18:00 Insulin Glargine (Lantus) 27 units DAILY@0800 SC Last administered on 10/13/18 09:06; Admin Dose 27 UNITS; Start 10/10/18 at 08:00 Meropenem/Sodium Chloride 50 ml @ 100 mls/hr Q12 IVPB Last administered on 10/13/18 09:05; Admin Dose 100 MLS/HR; Start 10/10/18 at 21:00 Ferric Sodium Gluconate Complex 125 mg/Sodium Chloride 110 ml @ 110 mls/hr DAILY@1300 IVPB Last administered on 10/13/18 12:59; Admin Dose 110 MLS/HR; Start 10/11/18 at 13:00; Stop 10/15/18 at 13:59 Enoxaparin Sodium (Lovenox) 40 mg DAILY SC ; Start 10/14/18 at 09:00 Dextrose/Sodium Chloride 1,000 ml @ 50 mls/hr Q20H IV Last administered on 10/12/18 12:42; Admin Dose 75 MLS/HR; Start 10/11/18 at 23:00 Aspirin (Halfprin) 81 mg DAILY PO ; Start 10/26/18 at 09:00 Morphine Sulfate (morphine) 2 mg Q4H PRN IV SEVERE PAIN LEVEL 7-10; Start 10/12/18 at 11:30 Insulin Aspart (Novolog Insulin Pen) NOVOLOG *MODERATE* ALGORITHM WITH MEALS BEDTIME SC Last administered on 10/13/18 13:16; Admin Dose 6 UNIT; Start 10/13/18 at 08:00 Metoclopramide HCl (Reglan) 5 mg TID PO Last administered on 10/13/18 12:58; Admin Dose 5 MG; Start 10/13/18 at 13:00 Sucralfate (Carafate) 1 gm QID PO Last administered on 10/13/18at 12:58; Admin D ose 1 GM; Start 10/13/18 at 13:00 JEANA MEMBRENO Oct 13, 2018 3:07 pm
--- NOTE | 2018-10-13 17:23 | PN ---
Date/Time of Note Date/Time of Note DATE: 10/13/18 TIME: 17:19 Assessment/Plan VTE Prophylaxis Risk score (from Nsg)>0 risk: 3 SCD applied (from Nsg): No SCD contraindicated: low risk/ambulating Pharmacological prophylaxis: LMWH Lines/Catheters IV Catheter Type (from Nrsg): Sal[place] Lock Urinary Cath still in place: No Assessment/Plan Hospital Course A/P 1. DKA vs hyperosmolar hyperglycemic state, stable/ improved cont insulin 2. Nonadherence, sp multiple sessions of counseling. Adjusted insulin diet. Definitely will be challenging/high risk of future DKA. 3. Abn LFTs/imaging. Potential abscess, sp aspiration, fu cx's. May need PICC/I V atbs. due to nonadherence, hopefully we can dc on po's. 4. Homeless/ ftt, may need placement; options have been given in the past but he continues to reside at his previous place of living. 5. Tobacco abuse, sp counseling offered patch 6. Bipolar dz/ mod stable observe 7. Hepatic nodule? 8. Dyslipidemia/metabolic syndrome 9. Anemia combination jolene and possible chr. stable observe. EGD/ colon. Gastritis but no active bleed. 10. Hypertension? 11. Diarrhea, c dif -vs 5days ago. DC senna/ Colace consider colono. Consider dc Protonix if EGD unremarkable. 12. Subacute vision loss. Present MRI concerning for ischemic stroke. Continue risk factor modification. 13. Acute/subacute ischemic stroke. Mod stable cont risk factor modification, carotids, echo. Unable to transfer to tele due to nonadherence. Will attempt dietary education, dietary education, including education for diabetes. on asa/ statin Subjective: 10/08 no fever nausea vomiting toxicity, following commands. wants more food/ calories 10/09; diarrhea; denies george abd pain. 10/10: No distress no events. 10/11: Nonadherence to diet medications imaging and diagnostic studies. Took GI prep however had diarrhea 10/12: Sugar in the 70s controlled while n.p.o. No nausea vomiting. No chest pain. Subjective dizziness but vitals findings are negative. Fever noted. Colonoscopy today 10/13: Patient stated he had transient vision disturbance. Similar issue in past. Other [place] nonfocal. Right eye discomfort noted. O: Vital signs stable, except fever PE No pallor/ icterus, carotid bruit JVD droop Regular no mrg Clear Benign nt nd; no rrg No edema Neuro: Grossly nonfocal Disposition: Post stroke therapy, hopefully able to dc on po antibiotics for his abscess. He will probably go back to his previous living situation Result Diagram: 10/13/18 0638 10/13/18 0638 Results 24hrs Laboratory Tests Test 10/12/18 18:10 10/12/18 18:30 10/12/18 18:45 10/12/18 20:12 Bedside Glucose 38 *L 105 100 62 L Test 10/12/18 20:40 10/12/18 21:15 10/12/18 21:38 10/13/18 02:53 Bedside Glucose 57 L 113 128 91 Test 10/13/18 06:10 10/13/18 06:38 10/13/18 08:15 10/13/18 13:02 Bedside Glucose 238 H 242 H 221 H White Blood Count 9.0 # Red Blood Count 3.16 L Hemoglobin 7.3 L Hematocrit 24.1 L Mean Corpuscular Volume 76.3 L Mean Corpuscular 23.1 L Hemoglobin Mean Corpuscular 30.3 L Hemoglobin Concent Red Cell Distribution 15.1 H Width Platelet Count 414 Mean Platelet Volume 9.9 Immature Granulocytes % 1.000 H Neutrophils % 86.4 H Lymphocytes % 7.1 L Monocytes % 5.2 Eosinophils % 0.1 Basophils % 0.2 Nucleated Red Blood 0.0 Cells % Immature Granulocytes # 0.090 H Neutrophils # 7.8 H Lymphocytes # 0.6 L Monocytes # 0.5 Eosinophils # 0.0 Basophils # 0.0 Nucleated Red Blood 0.0 Cells # Sodium Level 135 Potassium Level 3.4 L Chloride Level 98 Carbon Dioxide Level 29 Anion Gap 8 Blood Urea Nitrogen 12 Creatinine 0.40 L Est Glomerular Filtrat > 60 Rate mL/min Glucose Level 203 Calcium Level 7.7 L Phosphorus Level 2.8 Magnesium Level 2.0 Total Bilirubin 0.1 L Direct Bilirubin 0.00 Indirect Bilirubin 0.1 Aspartate Amino 46 Transf (AST/SGOT) Alanine 47 Aminotransferase (ALT/SG PT) Alkaline Phosphatase 816 H Total Protein 5.1 L Albumin 2.2 L Globulin 2.90 Albumin/Globulin Ratio 0.75 Test 10/13/18 16:21 Bedside Glucose 50 L Exam/Review of Systems Exam Vitals Vital Signs Date Temp Pulse Resp B/P (MAP) Pulse Ox O2 O2 Flow FiO2 Time Delivery Rate 10/13/18 99.5 104 18 145/76 99 Room Air 14:20 (99) Intake and Output 10/12/18 10/12/18 10/13/18 1515:00 23:00 07:00 IntakeIntake Total 750 ml 260 ml 4000 ml OutputOutput Total 950 ml BalanceBalance 750 ml 260 ml 3050 ml Results Results 24hrs Laboratory Tests Test 10/12/18 18:10 10/12/18 18:30 10/12/18 18:45 10/12/18 20:12 Bedside Glucose 38 *L 105 100 62 L Test 10/12/18 20:40 10/12/18 21:15 10/12/18 21:38 10/13/18 02:53 Bedside Glucose 57 L 113 128 91 Test 10/13/18 06:10 10/13/18 06:38 10/13/18 08:15 10/13/18 13:02 Bedside Glucose 238 H 242 H 221 H White Blood Count 9.0 # Red Blood Count 3.16 L Hemoglobin 7.3 L Hematocrit 24.1 L Mean Corpuscular Volume 76.3 L Mean Corpuscular 23.1 L Hemoglobin Mean Corpuscular 30.3 L Hemoglobin Concent Red Cell Distribution 15.1 H Width Platelet Count 414 Mean Platelet Volume 9.9 Immature Granulocytes % 1.000 H Neutrophils % 86.4 H Lymphocytes % 7.1 L Monocytes % 5.2 Eosinophils % 0.1 Basophils % 0.2 Nucleated Red Blood 0.0 Cells % Immature Granulocytes # 0.090 H Neutrophils # 7.8 H Lymphocytes # 0.6 L Monocytes # 0.5 Eosinophils # 0.0 Basophils # 0.0 Nucleated Red Blood 0.0 Cells # Sodium Level 135 Potassium Level 3.4 L Chloride Level 98 Carbon Dioxide Level 29 Anion Gap 8 Blood Urea Nitrogen 12 Creatinine 0.40 L Est Glomerular Filtrat > 60 Rate mL/min Glucose Level 203 Calcium Level 7.7 L Phosphorus Level 2.8 Magnesium Level 2.0 Total Bilirubin 0.1 L Direct Bilirubin 0.00 Indirect Bilirubin 0.1 Aspartate Amino 46 Transf (AST/SGOT) Alanine 47 Aminotransferase (ALT/SG PT) Alkaline Phosphatase 816 H Total Protein 5.1 L Albumin 2.2 L Globulin 2.90 Albumin/Globulin Ratio 0.75 Test 10/13/18 16:21 Bedside Glucose 50 L Medications Medication Current Medications Buspirone HCl (Buspar) 5 mg BID PO Last administered on 10/13/18 09:10; Admin Dose 5 MG; Start 10/02/18 at 09:00 Gabapentin (Neurontin) 300 mg TID PO Last administered on 10/13/18 12:58; Admin Dose 300 MG; Start 10/02/18 at 09:00 Lisinopril (Zestril) 10 mg DAILY PO Last administered on 10/13/18 09:10; Admin Dose 10 MG; Start 10/02/18 at 09:00 Ondansetron HCl (Zofran Inj) 4 mg Q6H PRN IV NAUSEA AND/OR VOMITING; Start 10/02/18 at 02:00 Albuterol (Proventil 0.083% (Neb)) 2.5 mg Q2H RESP THERAPY PRN NEB SHORTNESS OF BREATH; Start 10/02/18 at 02:00 Acetaminophen (Tylenol Liquid) 650 mg Q6H PRN PO PAIN LEVEL 1-3 OR FEVER Last administered on 10/12/18 13:58; Admin Dose 650 MG; Start 10/02/18 at 02:00 Menthol/Methyl Salicylate (Memo Erazo) 1 applic TID PRN TOP pain; Start 10/02/18 at 06:30 Tramadol HCl (Ultram) 50 mg Q6H PRN PO MODERATE PAIN LEVEL 4-6 Last administered on 10/08/18 08:04; Admin Dose 50 MG; Start 10/02/18 at 11:00 Potassium Chloride 50 ml @ 50 mls/hr K PROTOCOL PRN IVPB PENDING LAB VALUE Last administered on 10/03/18 09:55; Admin Dose 50 MLS/HR; Start 10/02/18 at 11:30 Potassium Chloride (Potassium Chloride Pwd/Soln) 20 meq PER PROTOCOL PRN PO POTASSIUM REPLACEMENT PROTOCOL; Start 10/02/18 at 11:30 Potassium Chloride (Potassium Chloride Pwd/Soln) 30 meq PER PROTOCOL PRN PO P OTASSIUM REPLACEMENT PROTOCOL; Start 10/02/18 at 11:30 Potassium Chloride (Potassium Chloride Pwd/Soln) 40 meq PER PROTOCOL PRN PO POTASSIUM REPLACEMENT PROTOCOL; Start 10/02/18 at 11:30 Diagnostic Test (Pha) (Accu-Chek) 1 ea 02 XX Last administered on 10/07/18at 01:23; Admin Dose 1 EA; Start 10/03/18 at 02:00 Miscellaneous Information 1 ea NOTE XX ; Start 10/02/18 at 22:00 Glucose (Glutose) 15 gm Q15M PRN PO DECREASED GLUCOSE; Start 10/02/18 at 22:00 Glucose (Glutose) 22.5 gm Q15M PRN PO DECREASED GLUCOSE; Start 10/02/18 at 22:00 Dextrose (D50w Syringe) 25 ml Q15M PRN IV DECREASED GLUCOSE Last administered on 10/12/18at 20:44; Admin Dose 25 ML; Start 10/02/18 at 22:00 Dextrose (D50w Syringe) 50 ml Q15M PRN IV DECREASED GLUCOSE Last administered on 10/12/18at 18:15; Admin Dose 50 ML; Start 10/02/18 at 22:00 Glucagon (Glucagen) 1 mg Q15M PRN IM DECREASED GLUCOSE; Start 10/02/18 at 22:00 Glucose (Glutose) 15 gm Q15M PRN BUCCAL DECREASED GLUCOSE; Start 10/02/18 at 22:00 Diagnostic Test (Pha) (Accu-Chek) 1 ea AC MEALS AND BEDTIME XX Last administered on 10/12/18 11:05; Admin Dose 1 EA; Start 10/03/18 at 17:05 Calcium Carbonate (Tums) 500 mg Q4 PRN PO epigastric pain Last administered on 10/05/18at 01:34; Admin Dose 500 MG; Start 10/05/18 at 01:30 Pantoprazole (Protonix Tab) 40 mg DAILY@06 PO Last administered on 10/13/18 06:12; Admin Dose 40 MG; Start 10/06/18 at 06:00 Lactobacillus Acidophilus/ Rhamnosus (Culturelle) 1 cap BID PO Last administered on 10/13/18 09:10; Admin Dose 1 CAP; Start 10/08/18 at 21:00 Acetaminophen/ Hydrocodone Bitart (Roby (10/325)) 1 tab Q6H PRN PO SEVERE PAIN LEVEL 7-10 Last administered on 10/13/18 13:11; Admin Dose 1 TAB; Start 10/08/18 at 14:30 Nicotine (Nicoderm 14 Mg/ 24hr) 1 patch DAILY TRANSDERM Last administered on 10/13/18 09:02; Admin Dose 1 PATCH; Start 10/08/18 at 14:30 Loperamide HCl (Imodium Cap) 2 mg QID PRN PO DIARRHEA; Start 10/09/18 at 12:11 Atorvastatin Calcium (Lipitor) 20 mg QHS PO ; Start 10/15/18 at 21:00 Hydrocortisone (Anusol-Hc Supp) 25 mg TID PRN [place] HEMORROID PAIN/ITCHING; Start 10/09/18 at 13:30 Potassium Chloride (Potassium Chloride Pwd/Soln) 20 meq DAILY PO Last administered on 10/13/18 09:10; Admin Dose 20 MEQ; Start 10/09/18 at 13:30 Insulin Aspart (Novolog Insulin Pen) 9 unit WITH MEALS SC Last administered on 10/13/18 13:15; Admin Dose 9 UNIT; Start 10/09/18 at 18:00 Insulin Glargine (Lantus) 27 units DAILY@0800 SC Last administered on 10/13/18 09:06; Admin Dose 27 UNITS; Start 10/10/18 at 08:00 Meropenem/Sodium Chloride 50 ml @ 100 mls/hr Q12 IVPB Last administered on 10/13/18 09:05; Admin Dose 100 MLS/HR; Start 10/10/18 at 21:00 Ferric Sodium Gluconate Complex 125 mg/Sodium Chloride 110 ml @ 110 mls/hr DAILY@1300 IVPB Last administered on 10/13/18 12:59; Admin Dose 110 MLS/HR; Start 10/11/18 at 13:00; Stop 10/15/18 at 13:59 Enoxaparin Sodium (Lovenox) 40 mg DAILY SC ; Start 10/14/18 at 09:00 Dextrose/Sodium Chloride 1,000 ml @ 50 mls/hr Q20H IV Last administered on 10/12/18 12:42; Admin Dose 75 MLS/HR; Start 10/11/18 at 23:00 Aspirin (Halfprin) 81 mg DAILY PO ; Start 10/26/18 at 09:00 Morphine Sulfate (morphine) 2 mg Q4H PRN IV SEVERE PAIN LEVEL 7-10; Start 10/12/18 at 11:30 Insulin Aspart (Novolog Insulin Pen) NOVOLOG *MODERATE* ALGORITHM WITH MEALS BEDTIME SC Last administered on 10/13/18 13:16; Admin Dose 6 UNIT; Start 10/13/18 at 08:00 Metoclopramide HCl (Reglan) 5 mg TID PO Last administered on 10/13/18 12:58; Admin Dose 5 MG; Start 10/13/18 at 13:00 Sucralfate (Carafate) 1 gm QID PO Last administered on 10/13/18 12:58; Admin Dose 1 GM; Start 10/13/18 at 13:00 MARKO PAYAN MD Oct 13, 2018 17:23
[2018-10-13 20:42] VITALS: BP 132/74; PULSE 111; RESP 18
[2018-10-14] MEDS: ACCU-CHEK XX SCH ×5 (01:27→21:31)
[2018-10-14 01:38] VITALS: BP 142/82; PULSE 114; RESP 18
[2018-10-14] MEDS: PANTOPRAZOLE (EC) 40 MG TAB PO SCH (05:25)
[2018-10-14 07:30] VITALS: BP 132/71; PULSE 107; RESP 19
[2018-10-14] MEDS: INSULIN ASPART [NOVOLOG] 3 ML PEN SC SCH ×7 (07:56→21:00)
[2018-10-14] MEDS: ACETAMINOPHEN 650MG/20.3ML CUP PO PRN (07:57)
[2018-10-14] MEDS: NICOTINE (14 MG/24 HR) PATCH TRANSDERM SCH (08:49)
[2018-10-14] MEDS: POTASSIUM CHLORIDE 20 MEQ POWDER FOR ORAL SOLN PO SCH (08:50)
[2018-10-14] MEDS: MEROPENEM 1 GM/50ML(PMX) 50 ML IVPB SCH ×2 (08:50→21:14)
[2018-10-14] MEDS: BUSPIRONE 5 MG TAB PO SCH ×2 (08:50→21:30)
[2018-10-14] MEDS: METOCLOPRAMIDE 5 MG TAB PO SCH ×3 (08:51→21:30)
[2018-10-14] MEDS: LACTOBACILLUS RHAMNOSUS CAP PO SCH ×2 (08:51→21:30)
[2018-10-14] MEDS: SUCRALFATE 1 GM TAB PO SCH ×4 (08:51→21:30)
[2018-10-14] MEDS: GABAPENTIN 300 MG CAP PO SCH ×3 (08:53→21:30)
[2018-10-14] MEDS: ENOXAPARIN 40 MG/0.4 ML SYG SC SCH (08:55)
[2018-10-14] MEDS: INSULIN GLARGINE [LANTus] (100 UNITS/ML) SYG SC SCH (08:58)
[2018-10-14] MEDS: SOD FERRIC GLUC COMPLX 125 MG in SOD CHLORIDE 0.9% 100 ML IVPB SCH (12:53)
[2018-10-14] MEDS: DEXTROSE 5%-0.45% NACL 1,000 ML IV SCH (13:01)
--- NOTE | 2018-10-14 13:05 | PN ---
Date/Time of Note Date/Time of Note DATE: 10/14/18 TIME: 13:02 Assessment/Plan VTE Prophylaxis Risk score (from Nsg)>0 risk: 5 SCD applied (from Nsg): No SCD contraindicated: low risk/ambulating Pharmacological prophylaxis: LMWH Lines/Catheters IV Catheter Type (from Nrsg): Peripheral IV Urinary Cath still in place: No Assessment/Plan Hospital Course A/P 1. DKA vs hyperosmolar hyperglycemic state, stable/ improved cont insulin 2. Nonadherence, sp multiple sessions of counseling. Adjusted insulin/ diet. Definitely will be challenging/high risk of future DKA. 3. Abn LFTs/imaging. Potential abscess, sp aspiration, fu cx's. May need PIC C/IV atbs. due to nonadherence, hopefully we can dc on po's. 4. Homeless/ ftt, may need placement; options have been given in the past but he continues to reside at his previous place of living. 5. Tobacco abuse, sp counseling offered patch 6. Bipolar dz/ mod stable observe 7. Hepatic nodule? 8. Dyslipidemia/metabolic syndrome 9. Anemia combination jolene and possible chr. stable observe. EGD/ colon. Gastritis but no active bleed. 10. Hypertension? 11. Diarrhea, c dif -vs 5days ago. DC senna/ Colace, sp endoscopy. Consider dc Protonix if EGD unremarkable. 12. Subacute vision loss Rt. Present MRI concerning for ischemic stroke. Continue risk factor modification. 13. Ac/subacute ischemic stroke. Mod stable cont rfm, carotids, echo. Unable to transfer to tele due to nonadherence. Will attempt dietary education, dietary education, including education for diabetes. on asa/ statin. 14. Possible aspiration pneumonia due to stroke vs impulse eating/ behavior, ST consulted. Start antibiotics. 15. 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 wants more food/ calories 10/09; diarrhea; denies george abd pain. 10/10: No distress no events. 10/11: Nonadherence to diet medications imaging and diagnostic studies. Took GI prep however had diarrhea 10/12: Sugar in the 70s controlled while n.p.o. No nausea vomiting. No chest pain. Subjective dizziness but vitals findings are negative. Fever noted. Colonoscopy today 10/13: Patient stated he had transient vision disturbance. Similar issue in past. Other [place] nonfocal. Right eye discomfort noted. 10/14: Fever overnight. Possible aspiration pneumonia. Start empiric antibiotics appreciate ST eval O: Vital signs stable, except fever PE No pallor/ icterus, carotid bruit JVD droop Regular no mrg Clear Benign nt nd; no rrg No edema Neuro: Grossly nonfocal Disposition: Post stroke/ pneumonia therapy, hopefully able to dc on po antibiotics for his abscess. He will probably go back to his previous living situation Result Diagram: 10/14/18 0705 10/14/18 0938 Results 24hrs Laboratory Tests Test 10/13/18 16:21 10/13/18 17:20 10/13/18 20:49 10/14/18 07:05 Bedside Glucose 50 L 130 95 White Blood Count 8.8 Red Blood Count 3.19 L Hemoglobin 7.4 L Hematocrit 24.2 L Mean Corpuscular Volume 75.9 L Mean Corpuscular 23.2 L Hemoglobin Mean Corpuscular 30.6 L Hemoglobin Concent Red Cell Distribution 15.1 H Width Platelet Count 449 H Mean Platelet Volume 10.2 Immature Granulocytes % 1.100 H Neutrophils % 80.7 H Lymphocytes % 11.8 L Monocytes % 6.1 Eosinophils % 0.0 Basophils % 0.3 Nucleated Red Blood 0.0 Cells % Immature Granulocytes # 0.100 H Neutrophils # 7.1 Lymphocytes # 1.0 Monocytes # 0.5 Eosinophils # 0.0 Basophils # 0.0 Nucleated Red Blood 0.0 Cells # Sodium Level 136 Potassium Level 3.8 Chloride Level 100 Carbon Dioxide Level 30 Anion Gap 6 Blood Urea Nitrogen 11 Creatinine 0.47 L Est Glomerular Filtrat > 60 Rate mL/min Glucose Level 84 # Calcium Level 7.8 L Phosphorus Level 2.6 Magnesium Level 1.9 Total Bilirubin 0.1 L Direct Bilirubin 0.00 Indirect Bilirubin 0.1 Aspartate Amino 46 Transf (AST/SGOT) Alanine 34 Aminotransferase (ALT/SG PT) Alkaline Phosphatase 1278 #H Total Protein 5.9 L Albumin 2.6 L Globulin 3.30 H Albumin/Globulin Ratio 0.78 Test 10/14/18 07:55 10/14/18 09:38 10/14/18 12:55 Bedside Glucose 125 201 Sodium Level 134 L Potassium Level 3.7 Chloride Level 97 Carbon Dioxide Level 29 Anion Gap 8 Blood Urea Nitrogen 11 Creatinine 0.48 L Est Glomerular Filtrat > 60 Rate mL/min Glucose Level 155 Calcium Level 7.7 L Total Bilirubin 0.1 L Direct Bilirubin 0.00 Indirect Bilirubin 0.1 Aspartate Amino 41 Transf (AST/SGOT) Alanine 37 Aminotransferase (ALT/SG PT) Alkaline Phosphatase 1264 H Total Protein 5.9 L Albumin 2.5 L Globulin 3.40 H Albumin/Globulin Ratio 0.73 Triglycerides Level 78 Cholesterol Level 129 LDL Cholesterol, 81 Calculated HDL Cholesterol 32 Cholesterol/HDL Ratio 4.0 Exam/Review of Systems Exam Vitals Vital Signs Date Temp Pulse Resp B/P (MAP) Pulse Ox O2 O2 Flow FiO2 Time Delivery Rate 10/14/18 98.2 08:42 10/14/18 107 19 132/71 95 Room Air 07:30 (91) Intake and Output 10/13/18 10/13/18 10/14/18 1515:00 23:00 07:00 IntakeIntake Total 1010 ml BalanceBalance 1010 ml Results Results 24hrs Laboratory Tests Test 10/13/18 16:21 10/13/18 17:20 10/13/18 20:49 10/14/18 07:05 Bedside Glucose 50 L 130 95 White Blood Count 8.8 Red Blood Count 3.19 L Hemoglobin 7.4 L Hematocrit 24.2 L Mean Corpuscular Volume 75.9 L Mean Corpuscular 23.2 L Hemoglobin Mean Corpuscular 30.6 L Hemoglobin Concent Red Cell Distribution 15.1 H Width Platelet Count 449 H Mean Platelet Volume 10.2 Immature Granulocytes % 1.100 H Neutrophils % 80.7 H Lymphocytes % 11.8 L Monocytes % 6.1 Eosinophils % 0.0 Basophils % 0.3 Nucleated Red Blood 0.0 Cells % Immature Granulocytes # 0.100 H Neutrophils # 7.1 Lymphocytes # 1.0 Monocytes # 0.5 Eosinophils # 0.0 Basophils # 0.0 Nucleated Red Blood 0.0 Cells # Sodium Level 136 Potassium Level 3.8 Chloride Level 100 Carbon Dioxide Level 30 Anion Gap 6 Blood Urea Nitrogen 11 Creatinine 0.47 L Est Glomerular Filtrat > 60 Rate mL/min Glucose Level 84 # Calcium Level 7.8 L Phosphorus Level 2.6 Magnesium Level 1.9 Total Bilirubin 0.1 L Direct Bilirubin 0.00 Indirect Bilirubin 0.1 Aspartate Amino 46 Transf (AST/SGOT) Alanine 34 Aminotransferase (ALT/SG PT) Alkaline Phosphatase 1278 #H Total Protein 5.9 L Albumin 2.6 L Globulin 3.30 H Albumin/Globulin Ratio 0.78 Test 10/14/18 07:55 10/14/18 09:38 10/14/18 12:55 Bedside Glucose 125 201 Sodium Level 134 L Potassium Level 3.7 Chloride Level 97 Carbon Dioxide Level 29 Anion Gap 8 Blood Urea Nitrogen 11 Creatinine 0.48 L Est Glomerular Filtrat > 60 Rate mL/min Glucose Level 155 Calcium Level 7.7 L Total Bilirubin 0.1 L Direct Bilirubin 0.00 Indirect Bilirubin 0.1 Aspartate Amino 41 Transf (AST/SGOT) Alanine 37 Aminotransferase (ALT/SG PT) Alkaline Phosphatase 1264 H Total Protein 5.9 L Albumin 2.5 L Globulin 3.40 H Albumin/Globulin Ratio 0.73 Triglycerides Level 78 Cholesterol Level 129 LDL Cholesterol, 81 Calculated HDL Cholesterol 32 Cholesterol/HDL Ratio 4.0 Medications Medication Current Medications Buspirone HCl (Buspar) 5 mg BID PO Last administered on 10/14/18 08:50; Admin Dose 5 MG; Start 10/02/18 at 09:00 Gabapentin (Neurontin) 300 mg TID PO Last administered on 10/14/18at 08:53; Admin Dose 300 MG; Start 10/02/18 at 09:00 Ondansetron HCl (Zofran Inj) 4 mg Q6H PRN IV NAUSEA AND/OR VOMITING; Start 10/02/18 at 02:00 Albuterol (Proventil 0.083% (Neb)) 2.5 mg Q2H RESP THERAPY PRN NEB SHORTNESS OF BREATH; Start 10/02/18 at 02:00 Acetaminophen (Tylenol Liquid) 650 mg Q6H PRN PO PAIN LEVEL 1-3 OR FEVER Last administered on 10/14/18at 07:57; Admin Dose 650 MG; Start 10/02/18 at 02:00 Menthol/Methyl Salicylate (Memo Erazo) 1 applic TID PRN TOP pain; Start 10/02/18 at 06:30 Tramadol HCl (Ultram) 50 mg Q6H PRN PO MODERATE PAIN LEVEL 4-6 Last administered on 10/08/18 08:04; Admin Dose 50 MG; Start 10/02/18 at 11:00 Potassium Chloride 50 ml @ 50 mls/hr K PROTOCOL PRN IVPB PENDING LAB VALUE Last administered on 10/03/18 09:55; Admin Dose 50 MLS/HR; Start 10/02/18 at 11:30 Potassium Chloride (Potassium Chloride Pwd/Soln) 20 meq PER PROTOCOL PRN PO POTASSIUM REPLACEMENT PROTOCOL; Start 10/02/18 at 11:30 Potassium Chloride (Potassium Chloride Pwd/Soln) 30 meq PER PROTOCOL PRN PO POTASSIUM REPLACEMENT PROTOCOL; Start 10/02/18 at 11:30 Potassium Chloride (Potassium Chloride Pwd/Soln) 40 meq PER PROTOCOL PRN PO POTASSIUM REPLACEMENT PROTOCOL; Start 10/02/18 at 11:30 Diagnostic Test (Pha) (Accu-Chek) 1 ea 02 XX Last administered on 10/07/18 01:23; Admin Dose 1 EA; Start 10/03/18 at 02:00 Miscellaneous Information 1 ea NOTE XX ; Start 10/02/18 at 22:00 Glucose (Glutose) 15 gm Q15M PRN PO DECREASED GLUCOSE; Start 10/02/18 at 22:00 Glucose (Glutose) 22.5 gm Q15M PRN PO DECREASED GLUCOSE; Start 10/02/18 at 22:00 Dextrose (D50w Syringe) 25 ml Q15M PRN IV DECREASED GLUCOSE Last administered on 10/12/18 20:44; Admin Dose 25 ML; Start 10/02/18 at 22:00 Dextrose (D50w Syringe) 50 ml Q15M PRN IV DECREASED GLUCOSE Last administered on 10/12/18 18:15; Admin Dose 50 ML; Start 10/02/18 at 22:00 Glucagon (Glucagen) 1 mg Q15M PRN IM DECREASED GLUCOSE; Start 10/02/18 at 22:00 Glucose (Glutose) 15 gm Q15M PRN BUCCAL DECREASED GLUCOSE; Start 10/02/18 at 22:00 Diagnostic Test (Pha) (Accu-Chek) 1 ea AC MEALS AND BEDTIME XX Last administered on 10/14/18 07:56; Admin Dose 1 EA; Start 10/03/18 at 17:05 Calcium Carbonate (Tums) 500 mg Q4 PRN PO epigastric pain Last administered on 10/05/18 01:34; Admin Dose 500 MG; Start 10/05/18 at 01:30 Pantoprazole (Protonix Tab) 40 mg DAILY@06 PO Last administered on 10/14/18 05:25; Admin Dose 40 MG; Start 10/06/18 at 06:00 Lactobacillus Acidophilus/ Rhamnosus (Culturelle) 1 cap BID PO Last administered on 10/14/18 08:51; Admin Dose 1 CAP; Start 10/08/18 at 21:00 Acetaminophen/ Hydrocodone Bitart ([place] (10/325)) 1 tab Q6H PRN PO SEVERE PAIN LEVEL 7-10 Last administered on 10/13/18 13:11; Admin Dose 1 TAB; Start 10/08/18 at 14:30 Nicotine (Nicoderm 14 Mg/ 24hr) 1 patch DAILY TRANSDERM Last administered on 10/14/18 08:49; Admin Dose 1 PATCH; Start 10/08/18 at 14:30 Loperamide HCl (Imodium Cap) 2 mg QID PRN PO DIARRHEA; Start 10/09/18 at 12:11 Atorvastatin Calcium (Lipitor) 20 mg QHS PO ; Start 10/15/18 at 21:00 Hydrocortisone (Anusol-Hc Supp) 25 mg TID PRN [place] HEMORROID PAIN/ITCHING; Start 10/09/18 at 13:30 Potassium Chloride (Potassium Chloride Pwd/Soln) 20 meq DAILY PO Last administered on 10/14/18 08:50; Admin Dose 20 MEQ; Start 10/09/18 at 13:30 Meropenem/Sodium Chloride 50 ml @ 100 mls/hr Q12 IVPB Last administered on 10/14/18 08:50; Admin Dose 100 MLS/HR; Start 10/10/18 at 21:00 Ferric Sodium Gluconate Complex 125 mg/Sodium Chloride 110 ml @ 110 mls/hr DAILY@1300 IVPB Last administered on 10/13/18 12:59; Admin Dose 110 MLS/HR; Start 10/11/18 at 13:00; Stop 10/15/18 at 13:59 Enoxaparin Sodium (Lovenox) 40 mg DAILY SC Last administered on 10/14/18 08:55; Admin Dose 40 MG; Start 10/14/18 at 09:00 Dextrose/Sodium Chloride 1,000 ml @ 50 mls/hr Q20H IV Last administered on 10/12/18 12:42; Admin Dose 75 MLS/HR; Start 10/11/18 at 23:00 Aspirin (Halfprin) 81 mg DAILY PO ; Start 10/26/18 at 09:00 Morphine Sulfate (morphine) 2 mg Q4H PRN IV SEVERE PAIN LEVEL 7-10; Start 10/12/18 at 11:30 Insulin Aspart (Novolog Insulin Pen) NOVOLOG *MODERATE* ALGORITHM WITH MEALS BEDTIME SC Last administered on 10/13/18 13:16; Admin Dose 6 UNIT; Start 10/13/18 at 08:00 Metoclopramide HCl (Reglan) 5 mg TID PO Last administered on 10/14/18 08:51; Admin Dose 5 MG; Start 10/13/18 at 13:00 Sucralfate (Carafate) 1 gm QID PO Last administered on 10/14/18 08:51; Admin Dose 1 GM; Start 10/13/18 at 13:00 Insulin Aspart (Novolog Insulin Pen) 5 unit WITH MEALS SC Last administered on 10/14/18 09:04; Admin Dose 5 UNIT; Start 10/13/18 at 18:00 Insulin Glargine (Lantus) 15 units DAILY@0800 SC Last administered on 10/14/18 08:58; Admin Dose 15 UNITS; Start 10/14/18 at 08:00 Lisinopril (Zestril) 10 mg DAILY PO ; Start 10/15/18 at 09:00 MARKO PAYAN MD Oct 14, 2018 13:05
--- NOTE | 2018-10-14 13:09 | PN ---
Date/Time of Note Date/Time of Note DATE: 10/14/18 TIME: 13:01 Assessment/Plan VTE Prophylaxis Risk score (from Ns)>0 risk: 5 SCD applied (from Ns): No SCD contraindicated: other (scds) Pharmacological prophylaxis: other (scds) Lines/Catheters IV [facility]ter Type (from [facility]): Peripheral IV Urinary Cath still in place: No Assessment/Plan Hospital Course Assessment/Plan Assessment: Leukocytosis- Resolved Microcytic hypochromic anemia- likely multifactorial -FBOT +, Repeat test is negative Colonoscopy 10/12/18 Sub-optimal prep Internal hemorrhoids EGD 10/12/18 Gastritis- bx pending Gastroparesis Elevated LFTs- resolved Elevated Alk phos -MRCP shows normal CBD Diarrhea - resolved -Stool cx- Coliform -C-diff negative Liver lesions x3 concerning for phelgmon/abscesses -Successful CT guided liver abscess aspiration. Due to small size of the abscess no catheter was placed. -Preliminary results show gram neg rods- pt on abx Fatty liver Diabetes mellitus- with hyperglycemia-poorly controlled HTN Hyponatremia Bipolar disorder Homelessness Eye pain/subacute vision distortion Subacute/late subacute lacunar infarct Plan: Review bx results when available Continue PPI/Reglan ABX per ID Monitor labs Will order AMA given elevated alk phos Patient seen in collaboration with Dr. Mai/K[place] Subjective: HGB remains low but stable, no overt signs of GI bleed. Continue current regimen, Pt dismissive when questioned asked about his health, he only seems to be concerned right with receving more food. No current distress. GI sx have improved. PHYSICAL EXAMINATION: GENERAL: Alert & oriented x 3, agitated SKIN: No lesions EYES: Pupils equal reactive to light, no discharge. EARS/NOSE AND THROAT: Ears normal, nose normal NECK: Supple. CHEST: Inspection within normal limits. CARDIOVASCULAR: Heart: Regular rate and rhythm RESPIRATORY: Lungs clear to auscultation GASTROINTESTINAL AND LIVER: Abdomen: Soft, non tenderness, non-distended, no hernias, no masses, no organomegaly, no ascites, no guarding, no rebound tenderness, normoactive bowel sounds. Rectal: Deferred. GENITOURINARY: Male genitalia within normal limits. EXTREMITIES: No cyanosis, clubbing or edema. Result Diagram: 10/14/18 0705 10/14/18 0938 Results 24hrs Laboratory Tests Test 10/13/18 13:02 10/13/18 16:21 10/13/18 17:20 10/13/18 20:49 Bedside Glucose 221 H 50 L 130 95 Test 10/14/18 07:05 10/14/18 07:55 10/14/18 09:38 10/14/18 12:55 White Blood Count 8.8 Red Blood Count 3.19 L Hemoglobin 7.4 L Hematocrit 24.2 L Mean Corpuscular Volume 75.9 L Mean Corpuscular 23.2 L Hemoglobin Mean Corpuscular 30.6 L Hemoglobin Concent Red Cell Distribution 15.1 H Width Platelet Count 449 H Mean Platelet Volume 10.2 Immature Granulocytes % 1.100 H Neutrophils % 80.7 H Lymphocytes % 11.8 L Monocytes % 6.1 Eosinophils % 0.0 Basophils % 0.3 Nucleated Red Blood 0.0 Cells % Immature Granulocytes # 0.100 H Neutrophils # 7.1 Lymphocytes # 1.0 Monocytes # 0.5 Eosinophils # 0.0 Basophils # 0.0 Nucleated Red Blood 0.0 Cells # Sodium Level 136 134 L Potassium Level 3.8 3.7 Chloride Level 100 97 Carbon Dioxide Level 30 29 Anion Gap 6 8 Blood Urea Nitrogen 11 11 Creatinine 0.47 L 0.48 L Est Glomerular Filtrat > 60 > 60 Rate mL/min Glucose Level 84 # 155 Calcium Level 7.8 L 7.7 L Phosphorus Level 2.6 Magnesium Level 1.9 Total Bilirubin 0.1 L 0.1 L Direct Bilirubin 0.00 0.00 Indirect Bilirubin 0.1 0.1 Aspartate Amino 46 41 Transf (AST/SGOT) Alanine 34 37 Aminotransferase (ALT/SG PT) Alkaline Phosphatase 1278 #H 1264 H Total Protein 5.9 L 5.9 L Albumin 2.6 L 2.5 L Globulin 3.30 H 3.40 H Albumin/Globulin Ratio 0.78 0.73 Bedside Glucose 125 201 Triglycerides Level 78 Cholesterol Level 129 LDL Cholesterol, 81 Calculated HDL Cholesterol 32 Cholesterol/HDL Ratio 4.0 Exam/Review of Systems Exam Vitals Vital Signs Date Temp Pulse Resp B/P (MAP) Pulse Ox O2 O2 Flow FiO2 Time Delivery Rate 10/14/18 98.2 08:42 10/14/18 107 19 132/71 95 Room Air 07:30 (91) Intake and Output 10/13/18 10/13/18 10/14/18 1515:00 23:00 07:00 IntakeIntake Total 1010 ml BalanceBalance 1010 ml Results Results 24hrs Laboratory Tests Test 10/13/18 13:02 10/13/18 16:21 10/13/18 17:20 10/13/18 20:49 Bedside Glucose 221 H 50 L 130 95 Test 10/14/18 07:05 10/14/18 07:55 10/14/18 09:38 10/14/18 12:55 White Blood Count 8.8 Red Blood Count 3.19 L Hemoglobin 7.4 L Hematocrit 24.2 L Mean Corpuscular Volume 75.9 L Mean Corpuscular 23.2 L Hemoglobin Mean Corpuscular 30.6 L Hemoglobin Concent Red Cell Distribution 15.1 H Width Platelet Count 449 H Mean Platelet Volume 10.2 Immature Granulocytes % 1.100 H Neutrophils % 80.7 H Lymphocytes % 11.8 L Monocytes % 6.1 Eosinophils % 0.0 Basophils % 0.3 Nucleated Red Blood 0.0 Cells % Immature Granulocytes # 0.100 H Neutrophils # 7.1 Lymphocytes # 1.0 Monocytes # 0.5 Eosinophils # 0.0 Basophils # 0.0 Nucleated Red Blood 0.0 Cells # Sodium Level 136 134 L Potassium Level 3.8 3.7 Chloride Level 100 97 Carbon Dioxide Level 30 29 Anion Gap 6 8 Blood Urea Nitrogen 11 11 Creatinine 0.47 L 0.48 L Est Glomerular Filtrat > 60 > 60 Rate mL/min Glucose Level 84 # 155 Calcium Level 7.8 L 7.7 L Phosphorus Level 2.6 Magnesium Level 1.9 Total Bilirubin 0.1 L 0.1 L Direct Bilirubin 0.00 0.00 Indirect Bilirubin 0.1 0.1 Aspartate Amino 46 41 Transf (AST/SGOT) Alanine 34 37 Aminotransferase (ALT/SG PT) Alkaline Phosphatase 1278 #H 1264 H Total Protein 5.9 L 5.9 L Albumin 2.6 L 2.5 L Globulin 3.30 H 3.40 H Albumin/Globulin Ratio 0.78 0.73 Bedside Glucose 125 201 Triglycerides Level 78 Cholesterol Level 129 LDL Cholesterol, 81 Calculated HDL Cholesterol 32 Cholesterol/HDL Ratio 4.0 Medications Medication Current Medications Buspirone HCl (Buspar) 5 mg BID PO Last administered on 10/14/18at 08:50; Admin Dose 5 MG; Start 10/02/18 at 09:00 Gabapentin (Neurontin) 300 mg TID PO Last administered on 10/14/18 08:53; Admin Dose 300 MG; Start 10/02/18 at 09:00 Ondansetron HCl (Zofran Inj) 4 mg Q6H PRN IV NAUSEA AND/OR VOMITING; Start 10/02/18 at 02:00 Albuterol (Proventil 0.083% (Neb)) 2.5 mg Q2H RESP THERAPY PRN NEB SHORTNESS OF BREATH; Start 10/02/18 at 02:00 Acetaminophen (Tylenol Liquid) 650 mg Q6H PRN PO PAIN LEVEL 1-3 OR FEVER Last administered on 10/14/18 07:57; Admin Dose 650 MG; Start 10/02/18 at 02:00 Menthol/Methyl Salicylate (Memo Erazo) 1 applic TID PRN TOP pain; Start 10/02/18 at 06:30 Tramadol HCl (Ultram) 50 mg Q6H PRN PO MODERATE PAIN LEVEL 4-6 Last administered on 10/08/18 08:04; Admin Dose 50 MG; Start 10/02/18 at 11:00 Potassium Chloride 50 ml @ 50 mls/hr K PROTOCOL PRN IVPB PENDING LAB VALUE Last administered on 10/03/18 09:55; Admin Dose 50 MLS/HR; Start 10/02/18 at 11:30 Potassium Chloride (Potassium Chloride Pwd/Soln) 20 meq PER PROTOCOL PRN PO POTASSIUM REPLACEMENT PROTOCOL; Start 10/02/18 at 11:30 Potassium Chloride (Potassium Chloride Pwd/Soln) 30 meq PER PROTOCOL PRN PO POTASSIUM REPLACEMENT PROTOCOL; Start 10/02/18 at 11:30 Potassium Chloride (Potassium Chloride Pwd/Soln) 40 meq PER PROTOCOL PRN PO POTASSIUM REPLACEMENT PROTOCOL; Start 10/02/18 at 11:30 Diagnostic Test (Pha) (Accu-Chek) 1 ea 02 XX Last administered on 10/07/18 01:23; Admin Dose 1 EA; Start 10/03/18 at 02:00 Miscellaneous Information 1 ea NOTE XX ; Start 10/02/18 at 22:00 Glucose (Glutose) 15 gm Q15M PRN PO DECREASED GLUCOSE; Start 10/02/18 at 22:00 Glucose (Glutose) 22.5 gm Q15M PRN PO DECREASED GLUCOSE; Start 10/02/18 at 22:00 Dextrose (D50w Syringe) 25 ml Q15M PRN IV DECREASED GLUCOSE Last administered on 10/12/18 20:44; Admin Dose 25 ML; Start 10/02/18 at 22:00 Dextrose (D50w Syringe) 50 ml Q15M PRN IV DECREASED GLUCOSE Last administered on 10/12/18 18:15; Admin Dose 50 ML; Start 10/02/18 at 22:00 Glucagon (Glucagen) 1 mg Q15M PRN IM DECREASED GLUCOSE; Start 10/02/18 at 22:00 Glucose (Glutose) 15 gm Q15M PRN BUCCAL DECREASED GLUCOSE; Start 10/02/18 at 22:00 Diagnostic Test (Pha) (Accu-Chek) 1 ea AC MEALS AND BEDTIME XX Last administered on 10/14/18 07:56; Admin Dose 1 EA; Start 10/03/18 at 17:05 Calcium Carbonate (Tums) 500 mg Q4 PRN PO epigastric pain Last administered on 10/05/18 01:34; Admin Dose 500 MG; Start 10/05/18 at 01:30 Pantoprazole (Protonix Tab) 40 mg DAILY@06 PO Last administered on 10/14/18 05:25; Admin Dose 40 MG; Start 10/06/18 at 06:00 Lactobacillus Acidophilus/ Rhamnosus (Culturelle) 1 cap BID PO Last administered on 10/14/18 08:51; Admin Dose 1 CAP; Start 10/08/18 at 21:00 Acetaminophen/ Hydrocodone Bitart ([place] (10/325)) 1 tab Q6H PRN PO SEVERE PAIN LEVEL 7-10 Last administered on 10/13/18 13:11; Admin Dose 1 TAB; Start 10/08/18 at 14:30 Nicotine (Nicoderm 14 Mg/ 24hr) 1 patch DAILY TRANSDERM Last administered on 10/14/18 08:49; Admin Dose 1 PATCH; Start 10/08/18 at 14:30 Loperamide HCl (Imodium Cap) 2 mg QID PRN PO DIARRHEA; Start 10/09/18 at 12:11 Atorvastatin Calcium (Lipitor) 20 mg QHS PO ; Start 10/15/18 at 21:00 Hydrocortisone (Anusol-Hc Supp) 25 mg TID PRN [place] HEMORROID PAIN/ITCHING; Start 10/09/18 at 13:30 Potassium Chloride (Potassium Chloride Pwd/Soln) 20 meq DAILY PO Last administered on 10/14/18 08:50; Admin Dose 20 MEQ; Start 10/09/18 at 13:30 Meropenem/Sodium Chloride 50 ml @ 100 mls/hr Q12 IVPB Last administered on 10/14/18 08:50; Admin Dose 100 MLS/HR; Start 10/10/18 at 21:00 Ferric Sodium Gluconate Complex 125 mg/Sodium Chloride 110 ml @ 110 mls/hr DAILY@1300 IVPB Last administered on 10/13/18 12:59; Admin Dose 110 MLS/HR; Start 10/11/18 at 13:00; Stop 10/15/18 at 13:59 Enoxaparin Sodium (Lovenox) 40 mg DAILY SC Last administered on 10/14/18 08:55; Admin Dose 40 MG; Start 10/14/18 at 09:00 Dextrose/Sodium Chloride 1,000 ml @ 50 mls/hr Q20H IV Last administered on 10/12/18 12:42; Admin Dose 75 MLS/HR; Start 10/11/18 at 23:00 Aspirin (Halfprin) 81 mg DAILY PO ; Start 10/26/18 at 09:00 Morphine Sulfate (morphine) 2 mg Q4H PRN IV SEVERE PAIN LEVEL 7-10; Start 10/12/18 at 11:30 Insulin Aspart (Novolog Insulin Pen) NOVOLOG *MODERATE* ALGORITHM WITH MEALS BEDTIME SC Last administered on 10/13/18 13:16; Admin Dose 6 UNIT; Start 10/13/18 at 08:00 Metoclopramide HCl (Reglan) 5 mg TID PO Last administered on 10/14/18 08:51; Admin Dose 5 MG; Start 10/13/18 at 13:00 Sucralfate (Carafate) 1 gm QID PO Last administered on 10/14/18 08:51; Admin Dose 1 GM; Start 10/13/18 at 13:00 Insulin Aspart (Novolog Insulin Pen) 5 unit WITH MEALS SC Last administered on 10/14/18 09:04; Admin Dose 5 UNIT; Start 10/13/18 at 18:00 Insulin Glargine (Lantus) 15 units DAILY@0800 SC Last administered on 10/14/18at 08:58; Admin Dose 15 UNITS; Start 10/14/18 at 08:00 Lisinopril (Zestril) 10 mg DAILY PO ; Start 10/15/18 at 09:00 OLIVA BOWER Oct 14, 2018 13:09
[2018-10-14] MEDS ORDERED: VANCOMYCIN IV PER PHARMACY XX SCH (13:30)
[2018-10-14 14:27] VITALS: BP 143/84; PULSE 103; RESP 20
[2018-10-14] MEDS ORDERED: VANCOMYCIN HCL 1.25 GM in SOD CHLORIDE 0.9% 250 ML IVPB SCH (15:00)
--- NOTE | 2018-10-14 15:38 | CONS ---
Assessment/Plan Assessment/Plan Hospital Course 63 M c/ DM 2, bipolar d/o, and other comorbidities, who is admitted to [facility] for evaluation of a multitude of complaints. He reports sudden R eye vision loss on 10/13, for which neurology is consulted.. 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 A primary ophthalmologic process remains a consideration.. It is possible, too, that his vision loss is progressive rather than sudden...and perhaps attributable to poorly controlled DM 2... CUS is without significant stenosis.. LDL 81 P: Await echo Add ESR, RPR, UDS... Continue asa/low dose lipitor daily for secondary stroke prevention Other management per primary Consultation Date/Type/Reason Admit Date/Time Oct 02, 2018 at 00:05 Type of Consult Neurology Reason for Consultation vision loss Requesting Provider: HERRERA SALDAÑA NP Date/Time of Note DATE: 10/14/18 TIME: 15:31 24 HR Interval Summary Free Text/Dictation Continues acute care Exam Vital Signs Vitals Vital Signs Date Temp Pulse Resp B/P (MAP) Pulse Ox O2 O2 Flow FiO2 Time Delivery Rate 10/14/18 98.6 103 20 143/84 98 Room Air 14:27 (103) Intake and Output 10/13/18 10/13/18 10/14/18 1515:00 23:00 07:00 IntakeIntake Total 1010 ml BalanceBalance 1010 ml Exam PE: Gen Appearance: No Apparent Distress HEENT: Normocephalic Cardiovascular: Regular rate Abdomen: Soft Extremities: Dry NE: The patient was alert and oriented. Language was normal. Fund of knowledge was normal. Pupils were reactive to light. There was no afferent pupillary defect. Visual iraheta were diminished b/l. Funduscopic examination was limited. Extra-ocular movements were full. Ptosis was absent. There was no nystagmus. Facial sensation was normal. Face was symmetric with normal strength. Hearing was intact. Palate movements were normal. Neck strength was normal. There was normal tongue bulk and speed of movement. Tone was normal. Muscle bulk was normal. I did not see fasciculations. Arms and legs were strong. Vibration sensation was normal. Temperature and pinprick sensation was normal. Rapid alternating movements were normal. There was no dysmetria. There was no intention tremor. Gait was deferred due to bedrest. Arm and leg reflexes were symmetric. Houser's sign was absent. Plantar responses were flexor. NOLAN CALZADA Oct 14, 2018 15:38
[2018-10-14] MEDS: ASPIRIN (EC) 81 MG TAB PO SCH (15:52)
--- NOTE | 2018-10-14 16:51 | CONS ---
Assessment/Plan Assessment/Plan Hospital Course (Demo Recall) No acute events patient looks comfortable, afebrile. WBC 8.8 neutrophils 80.7 BUN 11 creatinine 0.48 Microbiology: Abdominal fluid culture grew Klebsiella pneumonia, blood and urine culture remain negative Chest x-ray from yesterday revealed multifocal pneumonia Antimicrobials: Vancomycin, meropenem Physical examination: Well-developed elderly -[place] man in no distress. Head atraumatic normocephalic neck is supple chest rise symmetrical breath sounds diminished bases heart S1-S2 abdomen obese soft bowel sounds present extremities without cyanosis Assessment: 1. Sepsis 2. Liver abscess status post CT-guided drainage 3. Healthcare associated pneumonia 4. Diabetes, poorly controlled 5. Hypertension 6. Bipolar disorder and homelessness 7. Diarrhea, C. difficile negative Plan: Stable, WBC normalized, continue abx Consultation Date/Type/Reason Admit Date/Time Oct 02, 2018 at 00:05 Initial Consult Date 10/04/18 Type of Consult id Requesting Provider: HERRERA SALDAÑA NP Date/Time of Note DATE: 10/14/18 TIME: 16:50 Exam/Review of Systems Exam Vitals Vital Signs Date Temp Pulse Resp B/P (MAP) Pulse Ox O2 O2 Flow FiO2 Time Delivery Rate 10/14/18 98.6 103 20 143/84 98 Room Air 14:27 (103) Intake and Output 10/13/18 10/13/18 10/14/18 1515:00 23:00 07:00 IntakeIntake Total 1010 ml BalanceBalance 1010 ml Results Result Diagram: 10/14/18 0705 10/14/18 0938 Results 24hrs Laboratory Tests Test 10/13/18 17:20 10/13/18 20:49 10/14/18 07:05 10/14/18 07:55 Bedside Glucose 130 95 125 White Blood Count 8.8 Red Blood Count 3.19 L Hemoglobin 7.4 L Hematocrit 24.2 L Mean Corpuscular Volume 75.9 L Mean Corpuscular 23.2 L Hemoglobin Mean Corpuscular 30.6 L Hemoglobin Concent Red Cell Distribution 15.1 H Width Platelet Count 449 H Mean Platelet Volume 10.2 Immature Granulocytes % 1.100 H Neutrophils % 80.7 H Lymphocytes % 11.8 L Monocytes % 6.1 Eosinophils % 0.0 Basophils % 0.3 Nucleated Red Blood 0.0 Cells % Immature Granulocytes # 0.100 H Neutrophils # 7.1 Lymphocytes # 1.0 Monocytes # 0.5 Eosinophils # 0.0 Basophils # 0.0 Nucleated Red Blood 0.0 Cells # Sodium Level 136 Potassium Level 3.8 Chloride Level 100 Carbon Dioxide Level 30 Anion Gap 6 Blood Urea Nitrogen 11 Creatinine 0.47 L Est Glomerular Filtrat > 60 Rate mL/min Glucose Level 84 # Calcium Level 7.8 L Phosphorus Level 2.6 Magnesium Level 1.9 Total Bilirubin 0.1 L Direct Bilirubin 0.00 Indirect Bilirubin 0.1 Aspartate Amino 46 Transf (AST/SGOT) Alanine 34 Aminotransferase (ALT/SG PT) Alkaline Phosphatase 1278 #H Total Protein 5.9 L Albumin 2.6 L Globulin 3.30 H Albumin/Globulin Ratio 0.78 Test 10/14/18 09:38 10/14/18 12:55 Sodium Level 134 L Potassium Level 3.7 Chloride Level 97 Carbon Dioxide Level 29 Anion Gap 8 Blood Urea Nitrogen 11 Creatinine 0.48 L Est Glomerular Filtrat > 60 Rate mL/min Glucose Level 155 Calcium Level 7.7 L Total Bilirubin 0.1 L Direct Bilirubin 0.00 Indirect Bilirubin 0.1 Aspartate Amino 41 Transf (AST/SGOT) Alanine 37 Aminotransferase (ALT/SG PT) Alkaline Phosphatase 1264 H Total Protein 5.9 L Albumin 2.5 L Globulin 3.40 H Albumin/Globulin Ratio 0.73 Triglycerides Level 78 Cholesterol Level 129 LDL Cholesterol, 81 Calculated HDL Cholesterol 32 Cholesterol/HDL Ratio 4.0 Bedside Glucose 201 Medications Medication Current Medications Buspirone HCl (Buspar) 5 mg BID PO Last administered on 10/14/18at 08:50; Admin Dose 5 MG; Start 10/02/18 at 09:00 Gabapentin (Neurontin) 300 mg TID PO Last administered on 10/14/18at 12:53; Admin Dose 300 MG; Start 10/02/18 at 09:00 Ondansetron HCl (Zofran Inj) 4 mg Q6H PRN IV NAUSEA AND/OR VOMITING; Start 10/02/18 at 02:00 Albuterol (Proventil 0.083% (Neb)) 2.5 mg Q2H RESP THERAPY PRN NEB SHORTNESS OF BREATH; Start 10/02/18 at 02:00 Acetaminophen (Tylenol Liquid) 650 mg Q6H PRN PO PAIN LEVEL 1-3 OR FEVER Last administered on 10/14/18at 07:57; Admin Dose 650 MG; Start 10/02/18 at 02:00 Menthol/Methyl Salicylate (Memo Erazo) 1 applic TID PRN TOP pain; Start 10/02/18 at 06:30 Tramadol HCl (Ultram) 50 mg Q6H PRN PO MODERATE PAIN LEVEL 4-6 Last administered on 10/08/18 08:04; Admin Dose 50 MG; Start 10/02/18 at 11:00 Potassium Chloride 50 ml @ 50 mls/hr K PROTOCOL PRN IVPB PENDING LAB VALUE Last administered on 10/03/18 09:55; Admin Dose 50 MLS/HR; Start 10/02/18 at 11:30 Potassium Chloride (Potassium Chloride Pwd/Soln) 20 meq PER PROTOCOL PRN PO POTASSIUM REPLACEMENT PROTOCOL; Start 10/02/18 at 11:30 Potassium Chloride (Potassium Chloride Pwd/Soln) 30 meq PER PROTOCOL PRN PO POTASSIUM REPLACEMENT PROTOCOL; Start 10/02/18 at 11:30 Potassium Chloride (Potassium Chloride Pwd/Soln) 40 meq PER PROTOCOL PRN PO POTASSIUM REPLACEMENT PROTOCOL; Start 10/02/18 at 11:30 Diagnostic Test (Pha) (Accu-Chek) 1 ea 02 XX Last administered on 10/07/18at 01:23; Admin Dose 1 EA; Start 10/03/18 at 02:00 Miscellaneous Information 1 ea NOTE XX ; Start 10/02/18 at 22:00 Glucose (Glutose) 15 gm Q15M PRN PO DECREASED GLUCOSE; Start 10/02/18 at 22:00 Glucose (Glutose) 22.5 gm Q15M PRN PO DECREASED GLUCOSE; Start 10/02/18 at 22:00 Dextrose (D50w Syringe) 25 ml Q15M PRN IV DECREASED GLUCOSE Last administered on 10/12/18 20:44; Admin Dose 25 ML; Start 10/02/18 at 22:00 Dextrose (D50w Syringe) 50 ml Q15M PRN IV DECREASED GLUCOSE Last administered on 10/12/18at 18:15; Admin Dose 50 ML; Start 10/02/18 at 22:00 Glucagon (Glucagen) 1 mg Q15M PRN IM DECREASED GLUCOSE; Start 10/02/18 at 22:00 Glucose (Glutose) 15 gm Q15M PRN BUCCAL DECREASED GLUCOSE; Start 10/02/18 at 22:00 Diagnostic Test (Pha) (Accu-Chek) 1 ea AC MEALS AND BEDTIME XX Last administered on 10/14/18 11:30; Admin Dose 1 EA; Start 10/03/18 at 17:05 Calcium Carbonate (Tums) 500 mg Q4 PRN PO epigastric pain Last administered on 10/05/18 01:34; Admin Dose 500 MG; Start 10/05/18 at 01:30 Pantoprazole (Protonix Tab) 40 mg DAILY@06 PO Last administered on 10/14/18 05:25; Admin Dose 40 MG; Start 10/06/18 at 06:00 Lactobacillus Acidophilus/ Rhamnosus (Culturelle) 1 cap BID PO Last administered on 10/14/18 08:51; Admin Dose 1 CAP; Start 10/08/18 at 21:00 Acetaminophen/ Hydrocodone Bitart ([place] (10/325)) 1 tab Q6H PRN PO SEVERE PAIN LEVEL 7-10 Last administered on 10/13/18 13:11; Admin Dose 1 TAB; Start 10/08/18 at 14:30 Nicotine (Nicoderm 14 Mg/ 24hr) 1 patch DAILY TRANSDERM Last administered on 08:49; Admin Dose 1 PATCH; Start 10/08/18 at 14:30 Loperamide HCl (Imodium Cap) 2 mg QID PRN PO DIARRHEA; Start 10/09/18 at 12:11 Atorvastatin Calcium (Lipitor) 20 mg QHS PO ; Start 10/15/18 at 21:00 Hydrocortisone (Anusol-Hc Supp) 25 mg TID PRN [place] HEMORROID PAIN/ITCHING; Start 10/09/18 at 13:30 Potassium Chloride (Potassium Chloride Pwd/Soln) 20 meq DAILY PO Last administered on 10/14/18 08:50; Admin Dose 20 MEQ; Start 10/09/18 at 13:30 Meropenem/Sodium Chloride 50 ml @ 100 mls/hr Q12 IVPB Last administered on 10/14/18 08:50; Admin Dose 100 MLS/HR; Start 10/10/18 at 21:00 Ferric Sodium Gluconate Complex 125 mg/Sodium Chloride 110 ml @ 110 mls/hr DAILY@1300 IVPB Last administered on 10/14/18 12:53; Admin Dose 110 MLS/HR; Start 10/11/18 at 13:00; Stop 10/15/18 at 13:59 Enoxaparin Sodium (Lovenox) 40 mg DAILY SC Last administered on 10/14/18 08:55; Admin Dose 40 MG; Start 10/14/18 at 09:00 Dextrose/Sodium Chloride 1,000 ml @ 50 mls/hr Q20H IV Last administered on 10/12/18 12:42; Admin Dose 75 MLS/HR; Start 10/11/18 at 23:00 Aspirin (Halfprin) 81 mg DAILY PO Last administered on 10/14/18 15:52; Admin Dose 81 MG; Start 10/14/18 at 14:00 Morphine Sulfate (morphine) 2 mg Q4H PRN IV SEVERE PAIN LEVEL 7-10; Start 10/12/18 at 11:30 Insulin Aspart (Novolog Insulin Pen) NOVOLOG *MODERATE* ALGORITHM WITH MEALS BEDTIME SC Last administered on 10/14/18 13:00; Admin Dose 4 UNIT; Start 10/13/18 at 08:00 Metoclopramide HCl (Reglan) 5 mg TID PO Last administered on 10/14/18 13:03; Admin Dose 5 MG; Start 10/13/18 at 13:00 Sucralfate (Carafate) 1 gm QID PO Last administered on 10/14/18 12:53; Admin Dose 1 GM; Start 10/13/18 at 13:00 Insulin Aspart (Novolog Insulin Pen) 5 unit WITH MEALS SC Last administered on 10/14/18 12:59; Admin Dose 5 UNIT; Start 10/13/18 at 18:00 Insulin Glargine (Lantus) 15 units DAILY@0800 SC Last administered on 10/14/18 08:58; Admin Dose 15 UNITS; Start 10/14/18 at 08:00 Lisinopril (Zestril) 10 mg DAILY PO ; Start 10/15/18 at 09:00 Vancomycin HCl (Vanco Iv Per Pharmacy) VANCOMYCIN PER PHARM... PER PROTOCOL XX ; Start 10/14/18 at 13:30 Vancomycin HCl 1.25 gm/Sodium Chloride 250 ml @ 83.333 mls/ hr ONCE IVPB Last administered on 10/14/18 15:53; Admin Dose 83.333 MLS/HR; Start 10/14/18 at 15:00; Stop 10/14/18 at 17:59 AURORA ARZOLA NP Oct 14, 2018 16:51
[2018-10-14] MEDS: HYDROCODONE/APAP (10/325) TAB PO PRN (21:31)
--- NOTE | 2018-10-14 22:01 | CONS ---
Assessment/Plan Assessment/Plan Assessment/Plan (Daily) #Anemia- Hgb 7.4 today -pt has a low iron saturation in the setting of a high ferritin and low TIBC. This is most consistent with anemia of chronic inflammation as well as a component of iron deficiency -pt definitely needs GI eval for iron deficiency anemia. he is currently refusing the bowel prep -his chronic inflammation is likely from his uncontrolled diabetes -he is already s/p 5 days of IV iron but we will order another 5 days given he remains so iron deficient -ok to transfuse at this time -mildly high LDH with normal haptoglobin rules out hemolysis. If patient did have hemolysis, his haptoglobin would be undetectable #DM -continue insulin per primary team #Bipolar -continue mood stabilizers Patient is seen in collaboration with Dr Nunez. staff. Consultation Date/Type/Reason Admit Date/Time Oct 02, 2018 at 12:05 am Initial Consult Date 10/04/18 Type of Consult oncology Requesting Provider: HERRERA SALDAÑA NP Date/Time of Note DATE: 10/14/18 TIME: 21:41 24 HR Interval Summary Free Text/Dictation - resting in bed - denies any complaints -no new issues reported last night Detailed Summary Eyes: no complaints ENT: no complaints Respiratory: no complaints Cardiovascular: no complaints Gastrointestinal: no complaints Exam/Review of Systems Exam Vitals Vital Signs Date Temp Pulse Resp B/P (MAP) Pulse Ox O2 O2 Flow FiO2 Time Delivery Rate 10/14/18 98.6 103 20 143/84 98 Room Air 14:27 (103) Intake and Output 10/13/18 10/13/18 10/14/18 1515:00 23:00 07:00 IntakeIntake Total 1010 ml BalanceBalance 1010 ml Constitutional: alert, well developed Psych: nl mood/affect Head: normocephalic Eyes: EOMI, nl sclera ENMT: nl external ears & nose Neck: non-tender Respiratory: clear to auscultation (bilaterally) Cardiovascular: nl pulses, other (s1s2) Gastrointestinal: soft, non-tender Musculoskeletal: nl extremities to inspection Neurological: nl speech Skin: nl turgor Lymph: nontender Results Result Diagram: 10/14/18 0705 10/14/18 0938 Results 24hrs Laboratory Tests Test 10/14/18 07:05 10/14/18 07:55 10/14/18 09:37 10/14/18 09:38 White Blood Count 8.8 Red Blood Count 3.19 L Hemoglobin 7.4 L Hematocrit 24.2 L Mean Corpuscular Volume 75.9 L Mean Corpuscular 23.2 L Hemoglobin Mean Corpuscular 30.6 L Hemoglobin Concent Red Cell Distribution 15.1 H Width Platelet Count 449 H Mean Platelet Volume 10.2 Immature Granulocytes % 1.100 H Neutrophils % 80.7 H Lymphocytes % 11.8 L Monocytes % 6.1 Eosinophils % 0.0 Basophils % 0.3 Nucleated Red Blood 0.0 Cells % Immature Granulocytes # 0.100 H Neutrophils # 7.1 Lymphocytes # 1.0 Monocytes # 0.5 Eosinophils # 0.0 Basophils # 0.0 Nucleated Red Blood 0.0 Cells # Sodium Level 136 134 L Potassium Level 3.8 3.7 Chloride Level 100 97 Carbon Dioxide Level 30 29 Anion Gap 6 8 Blood Urea Nitrogen 11 11 Creatinine 0.47 L 0.48 L Est Glomerular Filtrat > 60 > 60 Rate mL/min Glucose Level 84 # 155 Calcium Level 7.8 L 7.7 L Phosphorus Level 2.6 Magnesium Level 1.9 Total Bilirubin 0.1 L 0.1 L Direct Bilirubin 0.00 0.00 Indirect Bilirubin 0.1 0.1 Aspartate Amino 46 41 Transf (AST/SGOT) Alanine 34 37 Aminotransferase (ALT/SG PT) Alkaline Phosphatase 1278 #H 1264 H Total Protein 5.9 L 5.9 L Albumin 2.6 L 2.5 L Globulin 3.30 H 3.40 H Albumin/Globulin Ratio 0.78 0.73 Bedside Glucose 125 Erythrocyte 50 H Sedimentation Rate Triglycerides Level 78 Cholesterol Level 129 LDL Cholesterol, 81 Calculated HDL Cholesterol 32 Cholesterol/HDL Ratio 4.0 Test 10/14/18 12:55 10/14/18 17:18 Bedside Glucose 201 116 Medications Medication Current Medications Buspirone HCl (Buspar) 5 mg BID PO Last administered on 10/14/18at 21:30; Admin Dose 5 MG; Start 10/02/18 at 09:00 Gabapentin (Neurontin) 300 mg TID PO Last administered on 10/14/18at 21:30; Admin Dose 300 MG; Start 10/02/18 at 09:00 Ondansetron HCl (Zofran Inj) 4 mg Q6H PRN IV NAUSEA AND/OR VOMITING; Start 10/02/18 at 02:00 Albuterol (Proventil 0.083% (Neb)) 2.5 mg Q2H RESP THERAPY PRN NEB SHORTNESS OF BREATH; Start 10/02/18 at 02:00 Acetaminophen (Tylenol Liquid) 650 mg Q6H PRN PO PAIN LEVEL 1-3 OR FEVER Last administered on 10/14/18 07:57; Admin Dose 650 MG; Start 10/02/18 at 02:00 Menthol/Methyl Salicylate (Memo Erazo) 1 applic TID PRN TOP pain; Start 10/02/18 at 06:30 Tramadol HCl (Ultram) 50 mg Q6H PRN PO MODERATE PAIN LEVEL 4-6 Last administered on 10/08/18 08:04; Admin Dose 50 MG; Start 10/02/18 at 11:00 Potassium Chloride 50 ml @ 50 mls/hr K PROTOCOL PRN IVPB PENDING LAB VALUE Last administered on 10/03/18 09:55; Admin Dose 50 MLS/HR; Start 10/02/18 at 11:30 Potassium Chloride (Potassium Chloride Pwd/Soln) 20 meq PER PROTOCOL PRN PO POTASSIUM REPLACEMENT PROTOCOL; Start 10/02/18 at 11:30 Potassium Chloride (Potassium Chloride Pwd/Soln) 30 meq PER PROTOCOL PRN PO POTASSIUM REPLACEMENT PROTOCOL; Start 10/02/18 at 11:30 Potassium Chloride (Potassium Chloride Pwd/Soln) 40 meq PER PROTOCOL PRN PO POTA SSIUM REPLACEMENT PROTOCOL; Start 10/02/18 at 11:30 Diagnostic Test (Pha) (Accu-Chek) 1 ea 02 XX Last administered on 10/07/18at 01:23; Admin Dose 1 EA; Start 10/03/18 at 02:00 Miscellaneous Information 1 ea NOTE XX ; Start 10/02/18 at 22:00 Glucose (Glutose) 15 gm Q15M PRN PO DECREASED GLUCOSE; Start 10/02/18 at 22:00 Glucose (Glutose) 22.5 gm Q15M PRN PO DECREASED GLUCOSE; Start 10/02/18 at 22 :00 Dextrose (D50w Syringe) 25 ml Q15M PRN IV DECREASED GLUCOSE Last administered on 10/12/18at 20:44; Admin Dose 25 ML; Start 10/02/18 at 22:00 Dextrose (D50w Syringe) 50 ml Q15M PRN IV DECREASED GLUCOSE Last administered on 10/12/18 18:15; Admin Dose 50 ML; Start 10/02/18 at 22:00 Glucagon (Glucagen) 1 mg Q15M PRN IM DECREASED GLUCOSE; Start 10/02/18 at 22:00 Glucose (Glutose) 15 gm Q15M PRN BUCCAL DECREASED GLUCOSE; Start 10/02/18 at 22:00 Diagnostic Test (Pha) (Accu-Chek) 1 ea AC MEALS AND BEDTIME XX Last administered on 10/14/18 21:31; Admin Dose 1 EA; Start 10/03/18 at 17:05 Calcium Carbonate (Tums) 500 mg Q4 PRN PO epigastric pain Last administered on 10/05/18 01:34; Admin Dose 500 MG; Start 10/05/18 at 01:30 Pantoprazole (Protonix Tab) 40 mg DAILY@06 PO Last administered on 10/14/18 05:25; Admin Dose 40 MG; Start 10/06/18 at 06:00 Lactobacillus Acidophilus/ Rhamnosus (Culturelle) 1 cap BID PO Last administered on 10/14/18 21:30; Admin Dose 1 CAP; Start 10/08/18 at 21:00 Acetaminophen/ Hydrocodone Bitart ([place] (10/325)) 1 tab Q6H PRN PO SEVERE PAIN LEVEL 7-10 Last administered on 10/14/18 21:31; Admin Dose 1 TAB; Start 10/08/18 at 14:30 Nicotine (Nicoderm 14 Mg/ 24hr) 1 patch DAILY TRANSDERM Last administered on 10/14/18 08:49; Admin Dose 1 PATCH; Start 10/08/18 at 14:30 Loperamide HCl (Imodium Cap) 2 mg QID PRN PO DIARRHEA; Start 10/09/18 at 12:11 Atorvastatin Calcium (Lipitor) 20 mg QHS PO ; Start 10/15/18 at 21:00 Hydrocortisone (Anusol-Hc Supp) 25 mg TID PRN [place] HEMORROID PAIN/ITCHING; Start 10/09/18 at 13:30 Potassium Chloride (Potassium Chloride Pwd/Soln) 20 meq DAILY PO Last administered on 10/14/18 08:50; Admin Dose 20 MEQ; Start 10/09/18 at 13:30 Meropenem/Sodium Chloride 50 ml @ 100 mls/hr Q12 IVPB Last administered on 10/14/18 21:14; Admin Dose 100 MLS/HR; Start 10/10/18 at 21:00 Ferric Sodium Gluconate Complex 125 mg/Sodium Chloride 110 ml @ 110 mls/hr DAILY@1300 IVPB Last administered on 10/14/18 12:53; Admin Dose 110 MLS/HR; Start 10/11/18 at 13:00; Stop 10/15/18 at 13:59 Enoxaparin Sodium (Lovenox) 40 mg DAILY SC Last administered on 10/14/18 08:55; Admin Dose 40 MG; Start 10/14/18 at 09:00 Dextrose/Sodium Chloride 1,000 ml @ 50 mls/hr Q20H IV Last administered on 10/12/18 12:42; Admin Dose 75 MLS/HR; Start 10/11/18 at 23:00 Aspirin (Halfprin) 81 mg DAILY PO Last administered on 10/14/18 15:52; Admin Dose 81 MG; Start 10/14/18 at 14:00 Morphine Sulfate (morphine) 2 mg Q4H PRN IV SEVERE PAIN LEVEL 7-10; Start 10/12/18 at 11:30 Insulin Aspart (Novolog Insulin Pen) NOVOLOG *MODERATE* ALGORITHM WITH MEALS BEDTIME SC Last administered on 10/14/18 13:00; Admin Dose 4 UNIT; Start 10/13/18 at 08:00 Metoclopramide HCl (Reglan) 5 mg TID PO Last administered on 10/14/18 21:30; Admin Dose 5 MG; Start 10/13/18 at 13:00 Sucralfate (Carafate) 1 gm QID PO Last administered on 10/14/18 21:30; Admin Dose 1 GM; Start 10/13/18 at 13:00 Insulin Aspart (Novolog Insulin Pen) 5 unit WITH MEALS SC Last administered on 10/14/18 17:19; Admin Dose 5 UNIT; Start 10/13/18 at 18:00 Insulin Glargine (Lantus) 15 units DAILY@0800 SC Last administered on 10/14/18 08:58; Admin Dose 15 UNITS; Start 10/14/18 at 08:00 Lisinopril (Zestril) 10 mg DAILY PO ; Start 10/15/18 at 09:00 Vancomycin HCl (Vanco Iv Per Pharmacy) VANCOMYCIN PER PHARM... PER PROTOCOL XX ; Start 10/14/18 at 13:30 Vancomycin/Sodium Chloride 250 ml @ 125 mls/hr Q12H IVPB ; Start 10/15/18 at 04:00 JEANA MEMBRENO Oct 14, 2018 9:59 pm
[2018-10-14 23:25] VITALS: BP 133/68; PULSE 111; RESP 24
[2018-10-15 00:53] VITALS: PULSE 105; RESP 22
[2018-10-15] MEDS: ACCU-CHEK XX SCH ×5 (02:00→20:13)
[2018-10-15 02:01] VITALS: BP 129/64; PULSE 104; RESP 18
[2018-10-15] MEDS ORDERED: KETOROLAC 30 MG INJ IV STA (02:13)
[2018-10-15] MEDS: VANCOMYCIN 750 MG (PMX) 250 ML IVPB SCH ×2 (04:58→16:14)
[2018-10-15] MEDS: PANTOPRAZOLE (EC) 40 MG TAB PO SCH (05:03)
[2018-10-15] MEDS: INSULIN ASPART [NOVOLOG] 3 ML PEN SC SCH ×7 (07:52→20:13)
[2018-10-15] MEDS: INSULIN GLARGINE [LANTus] (100 UNITS/ML) SYG SC SCH (07:54)
[2018-10-15 08:06] VITALS: BP 146/85; PULSE 74; RESP 19
[2018-10-15] MEDS: NICOTINE (14 MG/24 HR) PATCH TRANSDERM SCH (09:49)
[2018-10-15] MEDS: POTASSIUM CHLORIDE 20 MEQ POWDER FOR ORAL SOLN PO SCH (09:49)
[2018-10-15] MEDS: LISINOPRIL 10 MG TAB PO SCH (09:50)
[2018-10-15] MEDS: ASPIRIN (EC) 81 MG TAB PO SCH (09:50)
[2018-10-15] MEDS: ENOXAPARIN 40 MG/0.4 ML SYG SC SCH (09:50)
[2018-10-15] MEDS: SUCRALFATE 1 GM TAB PO SCH ×4 (09:50→20:14)
[2018-10-15] MEDS: LACTOBACILLUS RHAMNOSUS CAP PO SCH ×2 (09:50→20:14)
[2018-10-15] MEDS: METOCLOPRAMIDE 5 MG TAB PO SCH ×3 (09:51→20:14)
[2018-10-15] MEDS: GABAPENTIN 300 MG CAP PO SCH ×3 (09:51→20:14)
[2018-10-15] MEDS: BUSPIRONE 5 MG TAB PO SCH ×2 (09:51→20:14)
[2018-10-15] MEDS: MEROPENEM 1 GM/50ML(PMX) 50 ML IVPB SCH ×2 (09:51→20:14)
--- NOTE | 2018-10-15 11:21 | CONS ---
Assessment/Plan Assessment/Plan Hospital Course (Demo Recall) #Anemia -pt has a low iron saturation in the setting of a high ferritin and low TIBC. This is most consistent with anemia of chronic inflammation as well as a component of iron deficiency. Continue IV iron for now -EGD and coloscopy did not reveal evidence of active GI bleed -there does not seem to be evidence of hemolysis given the elevated haptoglobin -will check Hb electrophoresis to rule out thalassemia -check SPEP to rule out monoclonal gammopathy -check epo level to see if patient would benefit from procrit #DM -continue insulin per primary team #Bipolar -continue mood stabilizers -continue mood stabilizers Consultation Date/Type/Reason Admit Date/Time Oct 02, 2018 at 00:05 Initial Consult Date 10/04/18 Type of Consult Hematology Reason for Consultation anemia Requesting Provider: HERRERA SALDAÑA NP Date/Time of Note DATE: 10/15/18 TIME: 11:16 24 HR Interval Summary Free Text/Dictation pt underwent EGD and colonoscopy on monday. there was no evidence of active GI bleed. Exam/Review of Systems Exam Vitals Vital Signs Date Temp Pulse Resp B/P (MAP) Pulse Ox O2 O2 Flow FiO2 Time Delivery Rate 10/15/18 98.0 74 19 146/85 94 08:06 (105) 10/14/18 Room Air 23:25 Intake and Output 10/14/18 10/14/18 10/15/18 1515:00 23:00 07:00 IntakeIntake Total 1200 ml 172 ml OutputOutput Total 350 ml BalanceBalance 1200 ml -178 ml Constitutional: alert, oriented Psych: no complaints Head: normocephalic Eyes: nl conjunctiva ENMT: nl external ears & nose Neck: supple Respiratory: clear to auscultation Cardiovascular: regular rate and rhythm Gastrointestinal: soft Musculoskeletal: nl extremities to inspection Extremities: normal pulses Neurological: MANAGER LICENSING II-XII intact Results Result Diagram: 10/15/18 0707 10/15/18 0707 Results 24hrs Laboratory Tests Test 10/14/18 12:55 10/14/18 17:18 10/14/18 21:16 10/14/18 21:38 Bedside Glucose 201 116 148 Urine Opiates Screen Negative Urine Barbiturates Negative Urine Amphetamines Positive Screen Urine Benzodiazepines Negative Screen Urine Cocaine Screen Negative Urine Cannabinoids Negative Test 10/15/18 07:07 10/15/18 07:41 White Blood Count 10.5 Red Blood Count 3.12 L Hemoglobin 7.1 L Hematocrit 23.3 L Mean Corpuscular Volume 74.7 L Mean Corpuscular 22.8 L Hemoglobin Mean Corpuscular 30.5 L Hemoglobin Concent Red Cell Distribution 15.4 H Width Platelet Count 467 H Mean Platelet Volume 9.8 Immature Granulocytes % 0.900 H Neutrophils % 70.3 Lymphocytes % 19.4 Monocytes % 8.6 Eosinophils % 0.5 Basophils % 0.3 Nucleated Red Blood 0.0 Cells % Immature Granulocytes # 0.090 H Neutrophils # 7.4 Lymphocytes # 2.0 Monocytes # 0.9 Eosinophils # 0.1 Basophils # 0.0 Nucleated Red Blood 0.0 Cells # Sodium Level 133 L Potassium Level 4.4 Chloride Level 98 Carbon Dioxide Level 31 Anion Gap 4 L Blood Urea Nitrogen 14 Creatinine 0.43 L Est Glomerular Filtrat > 60 Rate mL/min Glucose Level 292 #H Lactic Acid Level 0.7 Calcium Level 7.8 L Phosphorus Level 2.6 Magnesium Level 1.9 Total Bilirubin 0.0 L Direct Bilirubin 0.00 Indirect Bilirubin 0.0 Aspartate Amino 31 Transf (AST/SGOT) Alanine 33 Aminotransferase (ALT/SG PT) Alkaline Phosphatase 1242 H Total Protein 5.7 L Albumin 2.5 L Globulin 3.20 Albumin/Globulin Ratio 0.78 Bedside Glucose 350 H Medications Medication Current Medications Buspirone HCl (Buspar) 5 mg BID PO Last administered on 10/15/18 09:51; Admin Dose 5 MG; Start 10/02/18 at 09:00 Gabapentin (Neurontin) 300 mg TID PO Last administered on 10/15/18at 09:51; Admin Dose 300 MG; Start 10/02/18 at 09:00 Ondansetron HCl (Zofran Inj) 4 mg Q6H PRN IV NAUSEA AND/OR VOMITING; Start 09/14 05/02 at 02:00 Albuterol (Proventil 0.083% (Neb)) 2.5 mg Q2H RESP THERAPY PRN NEB SHORTNESS OF BREATH; Start 10/02/18 at 02:00 Acetaminophen (Tylenol Liquid) 650 mg Q6H PRN PO PAIN LEVEL 1-3 OR FEVER Last administered on 10/14/18at 07:57; Admin Dose 650 MG; Start 10/02/18 at 02:00 Menthol/Methyl Salicylate (Memo Erazo) 1 applic TID PRN TOP pain; Start 10/02/18 at 06:30 Tramadol HCl (Ultram) 50 mg Q6H PRN PO MODERATE PAIN LEVEL 4-6 Last administered on 10/08/18 08:04; Admin Dose 50 MG; Start 10/02/18 at 11:00 Potassium Chloride 50 ml @ 50 mls/hr K PROTOCOL PRN IVPB PENDING LAB VALUE Last administered on 10/03/18at 09:55; Admin Dose 50 MLS/HR; Start 10/02/18 at 11:30 Potassium Chloride (Potassium Chloride Pwd/Soln) 20 meq PER PROTOCOL PRN PO POTASSIUM REPLACEMENT PROTOCOL; Start 10/02/18 at 11:30 Potassium Chloride (Potassium Chloride Pwd/Soln) 30 meq PER PROTOCOL PRN PO POTASSIUM REPLACEMENT PROTOCOL; Start 10/02/18 at 11:30 Potassium Chloride (Potassium Chloride Pwd/Soln) 40 meq PER PROTOCOL PRN PO POTASSIUM REPLACEMENT PROTOCOL; Start 10/02/18 at 11:30 Diagnostic Test (Pha) (Accu-Chek) 1 ea 02 XX Last administered on 10/07/18at 01:23; Admin Dose 1 EA; Start 10/03/18 at 02:00 Miscellaneous Information 1 ea NOTE XX ; Start 10/02/18 at 22:00 Glucose (Glutose) 15 gm Q15M PRN PO DECREASED GLUCOSE; Start 10/02/18 at 22:00 Glucose (Glutose) 22.5 gm Q15M PRN PO DECREASED GLUCOSE; Start 10/02/18 at 22:00 Dextrose (D50w Syringe) 25 ml Q15M PRN IV DECREASED GLUCOSE Last administered o n 10/12/18at 20:44; Admin Dose 25 ML; Start 10/02/18 at 22:00 Dextrose (D50w Syringe) 50 ml Q15M PRN IV DECREASED GLUCOSE Last administered on 10/12/18at 18:15; Admin Dose 50 ML; Start 10/02/18 at 22:00 Glucagon (Glucagen) 1 mg Q15M PRN IM DECREASED GLUCOSE; Start 10/02/18 at 22:00 Glucose (Glutose) 15 gm Q15M PRN BUCCAL DECREASED GLUCOSE; Start 10/02/18 at 22:00 Diagnostic Test (Pha) (Accu-Chek) 1 ea AC MEALS AND BEDTIME XX Last administered on 10/15/18 07:48; Admin Dose 1 EA; Start 10/03/18 at 17:05 Calcium Carbonate (Tums) 500 mg Q4 PRN PO epigastric pain Last administered on 10/05/18 01:34; Admin Dose 500 MG; Start 10/05/18 at 01:30 Pantoprazole (Protonix Tab) 40 mg DAILY@06 PO Last administered on 10/15/18 05:03; Admin Dose 40 MG; Start 10/06/18 at 06:00 Lactobacillus Acidophilus/ Rhamnosus (Culturelle) 1 cap BID PO Last administered on 10/15/18 09:50; Admin Dose 1 CAP; Start 10/08/18 at 21:00 Acetaminophen/ Hydrocodone Bitart ([place] (10/325)) 1 tab Q6H PRN PO SEVERE PAIN LEVEL 7-10 Last administered on 10/14/18 21:31; Admin Dose 1 TAB; Start 10/08/18 at 14:30 Nicotine (Nicoderm 14 Mg/ 24hr) 1 patch DAILY TRANSDERM Last administered on 10/15/18 09:49; Admin Dose 1 PATCH; Start 10/08/18 at 14:30 Loperamide HCl (Imodium Cap) 2 mg QID PRN PO DIARRHEA; Start 10/09/18 at 12:11 Atorvastatin Calcium (Lipitor) 20 mg QHS PO ; Start 10/15/18 at 21:00 Hydrocortisone (Anusol-Hc Supp) 25 mg TID PRN [place] HEMORROID PAIN/ITCHING; Start 10/09/18 at 13:30 Potassium Chloride (Potassium Chloride Pwd/Soln) 20 meq DAILY PO Last administered on 10/15/18 09:49; Admin Dose 20 MEQ; Start 10/09/18 at 13:30 Meropenem/Sodium Chloride 50 ml @ 100 mls/hr Q12 IVPB Last administered on 10/15/18 09:51; Admin Dose 100 MLS/HR; Start 10/10/18 at 21:00 Ferric Sodium Gluconate Complex 125 mg/Sodium Chloride 110 ml @ 110 mls/hr DAILY@1300 IVPB Last administered on 10/14/18 12:53; Admin Dose 110 MLS/HR; Start 10/11/18 at 13:00; Stop 10/15/18 at 13:59 Enoxaparin Sodium (Lovenox) 40 mg DAILY SC Last administered on 10/15/18 09:50; Admin Dose 40 MG; Start 10/14/18 at 09:00 Aspirin (Halfprin) 81 mg DAILY PO Last administered on 10/15/18 09:50; Admin Dose 81 MG; Start 10/14/18 at 14:00 Morphine Sulfate (morphine) 2 mg Q4H PRN IV SEVERE PAIN LEVEL 7-10 Last administered on 10/15/18 00:02; Admin Dose 2 MG; Start 10/12/18 at 11:30 Insulin Aspart (Novolog Insulin Pen) NOVOLOG *MODERATE* ALGORITHM WITH MEALS BEDTIME SC Last administered on 10/15/18 07:53; Admin Dose 10 UNIT; Start 10/13/18 at 08:00 Metoclopramide HCl (Reglan) 5 mg TID PO Last administered on 10/15/18 09:51; Admin Dose 5 MG; Start 10/13/18 at 13:00 Sucralfate (Carafate) 1 gm QID PO Last administered on 10/15/18 09:50; Admin Dose 1 GM; Start 10/13/18 at 13:00 Insulin Aspart (Novolog Insulin Pen) 5 unit WITH MEALS SC Last administered on 10/15/18 07:52; Admin Dose 5 UNIT; Start 10/13/18 at 18:00 Insulin Glargine (Lantus) 15 units DAILY@0800 SC Last administered on 10/15/18 07:54; Admin Dose 15 UNITS; Start 10/14/18 at 08:00 Lisinopril (Zestril) 10 mg DAILY PO Last administered on 10/15/18 09:50; Admin Dose 10 MG; Start 10/15/18 at 09:00 Vancomycin HCl (Vanco Iv Per Pharmacy) VANCOMYCIN PER PHARM... PER PROTOCOL XX ; Start 10/14/18 at 13:30 Vancomycin/Sodium Chloride 250 ml @ 125 mls/hr Q12H IVPB Last administered on 10/15/18 04:58; Admin Dose 125 MLS/HR; Start 10/15/18 at 04:00 MAYA CASTILLO M.D. Oct 15, 2018 11:21
[2018-10-15] MEDS: SOD FERRIC GLUC COMPLX 125 MG in SOD CHLORIDE 0.9% 100 ML IVPB SCH (13:31)
--- NOTE | 2018-10-15 13:31 | PN ---
Date/Time of Note Date/Time of Note DATE: 10/15/18 TIME: 13:25 Assessment/Plan VTE Prophylaxis Risk score (from Ns)>0 risk: 3 SCD applied (from Ns): No SCD contraindicated: other (scds) Pharmacological prophylaxis: other (scds) Lines/Catheters IV [facility] ([facility] Peripheral IV Urinary Cath still in place: No Assessment/Plan Hospital Course Assessment/Plan Assessment: Leukocytosis- Resolved Microcytic hypochromic anemia- likely multifactorial -FBOT +, Repeat test is negative Colonoscopy 10/12/18 Sub-optimal prep Internal hemorrhoids EGD 10/12/18 Gastritis Bx: Negative for Helicobacter organisms. No dysplasia or intestinal metaplasia is identified. Gastroparesis Elevated LFTs- resolved Elevated Alk phos -MRCP shows normal CBD Diarrhea - resolved -Stool cx- Coliform -C-diff negative Liver lesions x3 concerning for phelgmon/abscesses -Successful CT guided liver abscess aspiration. Due to small size of the abscess no catheter was placed. -Preliminary results show gram neg rods- pt on abx Fatty liver Diabetes mellitus- with hyperglycemia-poorly controlled HTN Hyponatremia Bipolar disorder Homelessness Eye pain/subacute vision distortion Subacute/late subacute lacunar infarct Increased bibasilar infiltrates concerning for multifocal pneumonia. Plan: Pathology reviewed- neg for h.pylori, IM, or dysplasia Continue PPI/Reglan ABX per ID GI will sign off but will be available upon reconsult as needed Patient seen in collaboration with Dr. aMi/K[facility] Subjective/Free test: No overt signs of GI bleed, HGB slightly trending down Methamphetamine pipe found in patients bed, toxicology + for methamphetamines Reviewed pathology, no clear GI source of anemia Hematology now following GI will sign off PHYSICAL EXAMINATION: GENERAL: Alert & oriented x 3, agitated SKIN: No lesions EYES: Pupils equal reactive to light, no discharge. EARS/NOSE AND THROAT: Ears normal, nose normal NECK: Supple. CHEST: Inspection within normal limits. CARDIOVASCULAR: Heart: Regular rate and rhythm RESPIRATORY: Lungs clear to auscultation GASTROINTESTINAL AND LIVER: Abdomen: Soft, non tenderness, non-distended, no hernias, no masses, no organomegaly, no ascites, no guarding, no rebound tenderness, normoactive bowel sounds. Rectal: Deferred. GENITOURINARY: Male genitalia within normal limits. EXTREMITIES: No cyanosis, clubbing or edema. Result Diagram: 10/15/18 0707 10/15/18 0707 Results 24hrs Laboratory Tests Test 10/14/18 17:18 10/14/18 21:16 10/14/18 21:38 10/15/18 07:07 Bedside Glucose 116 148 Urine Opiates Screen Negative Urine Barbiturates Negative Urine Amphetamines Positive Screen Urine Benzodiazepines Negative Screen Urine Cocaine Screen Negative Urine Cannabinoids Negative White Blood Count 10.5 Red Blood Count 3.12 L Hemoglobin 7.1 L Hematocrit 23.3 L Mean Corpuscular Volume 74.7 L Mean Corpuscular 22.8 L Hemoglobin Mean Corpuscular 30.5 L Hemoglobin Concent Red Cell Distribution 15.4 H Width Platelet Count 467 H Mean Platelet Volume 9.8 Immature Granulocytes % 0.900 H Neutrophils % 70.3 Lymphocytes % 19.4 Monocytes % 8.6 Eosinophils % 0.5 Basophils % 0.3 Nucleated Red Blood 0.0 Cells % Immature Granulocytes # 0.090 H Neutrophils # 7.4 Lymphocytes # 2.0 Monocytes # 0.9 Eosinophils # 0.1 Basophils # 0.0 Nucleated Red Blood 0.0 Cells # Sodium Level 133 L Potassium Level 4.4 Chloride Level 98 Carbon Dioxide Level 31 Anion Gap 4 L Blood Urea Nitrogen 14 Creatinine 0.43 L Est Glomerular Filtrat > 60 Rate mL/min Glucose Level 292 #H Lactic Acid Level 0.7 Calcium Level 7.8 L Phosphorus Level 2.6 Magnesium Level 1.9 Total Bilirubin 0.0 L Direct Bilirubin 0.00 Indirect Bilirubin 0.0 Aspartate Amino 31 Transf (AST/SGOT) Alanine 33 Aminotransferase (ALT/SG PT) Alkaline Phosphatase 1242 H Total Protein 5.7 L Albumin 2.5 L Globulin 3.20 Albumin/Globulin Ratio 0.78 Test 10/15/18 07:41 10/15/18 12:26 Bedside Glucose 350 H 232 H Exam/Review of Systems Exam Vitals Vital Signs Date Temp Pulse Resp B/P (MAP) Pulse Ox O2 O2 Flow FiO2 Time Delivery Rate 10/15/18 98.0 74 19 146/85 94 08:06 (105) 10/14/18 Room Air 23:25 Intake and Output 10/14/18 10/14/18 10/15/18 1515:00 23:00 07:00 IntakeIntake Total 1200 ml 172 ml OutputOutput Total 350 ml BalanceBalance 1200 ml -178 ml Results Results 24hrs Laboratory Tests Test 10/14/18 17:18 10/14/18 21:16 10/14/18 21:38 10/15/18 07:07 Bedside Glucose 116 148 Urine Opiates Screen Negative Urine Barbiturates Negative Urine Amphetamines Positive Screen Urine Benzodiazepines Negative Screen Urine Cocaine Screen Negative Urine Cannabinoids Negative White Blood Count 10.5 Red Blood Count 3.12 L Hemoglobin 7.1 L Hematocrit 23.3 L Mean Corpuscular Volume 74.7 L Mean Corpuscular 22.8 L Hemoglobin Mean Corpuscular 30.5 L Hemoglobin Concent Red Cell Distribution 15.4 H Width Platelet Count 467 H Mean Platelet Volume 9.8 Immature Granulocytes % 0.900 H Neutrophils % 70.3 Lymphocytes % 19.4 Monocytes % 8.6 Eosinophils % 0.5 Basophils % 0.3 Nucleated Red Blood 0.0 Cells % Immature Granulocytes # 0.090 H Neutrophils # 7.4 Lymphocytes # 2.0 Monocytes # 0.9 Eosinophils # 0.1 Basophils # 0.0 Nucleated Red Blood 0.0 Cells # Sodium Level 133 L Potassium Level 4.4 Chloride Level 98 Carbon Dioxide Level 31 Anion Gap 4 L Blood Urea Nitrogen 14 Creatinine 0.43 L Est Glomerular Filtrat > 60 Rate mL/min Glucose Level 292 #H Lactic Acid Level 0.7 Calcium Level 7.8 L Phosphorus Level 2.6 Magnesium Level 1.9 Total Bilirubin 0.0 L Direct Bilirubin 0.00 Indirect Bilirubin 0.0 Aspartate Amino 31 Transf (AST/SGOT) Alanine 33 Aminotransferase (ALT/SG PT) Alkaline Phosphatase 1242 H Total Protein 5.7 L Albumin 2.5 L Globulin 3.20 Albumin/Globulin Ratio 0.78 Test 10/15/18 07:41 10/15/18 12:26 Bedside Glucose 350 H 232 H Medications Medication Current Medications Buspirone HCl (Buspar) 5 mg BID PO Last administered on 10/15/18at 09:51; Admin Dose 5 MG; Start 10/02/18 at 09:00 Gabapentin (Neurontin) 300 mg TID PO Last administered on 10/15/18at 12:34; Admin Dose 300 MG; Start 10/02/18 at 09:00 Ondansetron HCl (Zofran Inj) 4 mg Q6H PRN IV NAUSEA AND/OR VOMITING; Start 10/02/18 at 02:00 Albuterol (Proventil 0.083% (Neb)) 2.5 mg Q2H RESP THERAPY PRN NEB SHORTNESS OF BREATH; Start 10/02/18 at 02:00 Acetaminophen (Tylenol Liquid) 650 mg Q6H PRN PO PAIN LEVEL 1-3 OR FEVER Last administered on 10/14/18 07:57; Admin Dose 650 MG; Start 10/02/18 at 02:00 Menthol/Methyl Salicylate (Memo Erazo) 1 applic TID PRN TOP pain; Start 10/02/18 at 06:30 Tramadol HCl (Ultram) 50 mg Q6H PRN PO MODERATE PAIN LEVEL 4-6 Last administered on 10/08/18 08:04; Admin Dose 50 MG; Start 10/02/18 at 11:00 Potassium Chloride 50 ml @ 50 mls/hr K PROTOCOL PRN IVPB PENDING LAB VALUE Last administered on 10/03/18 09:55; Admin Dose 50 MLS/HR; Start 10/02/18 at 11:30 Potassium Chloride (Potassium Chloride Pwd/Soln) 20 meq PER PROTOCOL PRN PO POTASSIUM REPLACEMENT PROTOCOL; Start 10/02/18 at 11:30 Potassium Chloride (Potassium Chloride Pwd/Soln) 30 meq PER PROTOCOL PRN PO POTASSIUM REPLACEMENT PROTOCOL; Start 10/02/18 at 11:30 Potassium Chloride (Potassium Chloride Pwd/Soln) 40 meq PER PROTOCOL PRN PO POTASSIUM REPLACEMENT PROTOCOL; Start 10/02/18 at 11:30 Diagnostic Test (Pha) (Accu-Chek) 1 ea 02 XX Last administered on 10/07/18at 01:23; Admin Dose 1 EA; Start 10/03/18 at 02:00 Miscellaneous Information 1 ea NOTE XX ; Start 10/02/18 at 22:00 Glucose (Glutose) 15 gm Q15M PRN PO DECREASED GLUCOSE; Start 10/02/18 at 22:00 Glucose (Glutose) 22.5 gm Q15M PRN PO DECREASED GLUCOSE; Start 10/02/18 at 22:00 Dextrose (D50w Syringe) 25 ml Q15M PRN IV DECREASED GLUCOSE Last administered on 10/12/18at 20:44; Admin Dose 25 ML; Start 10/02/18 at 22:00 Dextrose (D50w Syringe) 50 ml Q15M PRN IV DECREASED GLUCOSE Last administered on 10/12/18 18:15; Admin Dose 50 ML; Start 10/02/18 at 22:00 Glucagon (Glucagen) 1 mg Q15M PRN IM DECREASED GLUCOSE; Start 10/02/18 at 22:00 Glucose (Glutose) 15 gm Q15M PRN BUCCAL DECREASED GLUCOSE; Start 10/02/18 at 22:00 Diagnostic Test (Pha) (Accu-Chek) 1 ea AC MEALS AND BEDTIME XX Last administered on 10/15/18 12:27; Admin Dose 1 EA; Start 10/03/18 at 17:05 Calcium Carbonate (Tums) 500 mg Q4 PRN PO epigastric pain Last administered on 10/05/18 01:34; Admin Dose 500 MG; Start 10/05/18 at 01:30 Pantoprazole (Protonix Tab) 40 mg DAILY@06 PO Last administered on 10/15/18 05:03; Admin Dose 40 MG; Start 10/06/18 at 06:00 Lactobacillus Acidophilus/ Rhamnosus (Culturelle) 1 cap BID PO Last administered on 10/15/18 09:50; Admin Dose 1 CAP; Start 10/08/18 at 21:00 Acetaminophen/ Hydrocodone Bitart ([place] (10/325)) 1 tab Q6H PRN PO SEVERE PAIN LEVEL 7-10 Last administered on 10/14/18 21:31; Admin Dose 1 TAB; Start 10/08/18 at 14:30 Nicotine (Nicoderm 14 Mg/ 24hr) 1 patch DAILY TRANSDERM Last administered on 10/15/18 09:49; Admin Dose 1 PATCH; Start 10/08/18 at 14:30 Loperamide HCl (Imodium Cap) 2 mg QID PRN PO DIARRHEA; Start 10/09/18 at 12:11 Atorvastatin Calcium (Lipitor) 20 mg QHS PO ; Start 10/15/18 at 21:00 Hydrocortisone (Anusol-Hc Supp) 25 mg TID PRN [place] HEMORROID PAIN/ITCHING; Start 10/09/18 at 13:30 Potassium Chloride (Potassium Chloride Pwd/Soln) 20 meq DAILY PO Last administered on 10/15/18 09:49; Admin Dose 20 MEQ; Start 10/09/18 at 13:30 Meropenem/Sodium Chloride 50 ml @ 100 mls/hr Q12 IVPB Last administered on 10/15/18 09:51; Admin Dose 100 MLS/HR; Start 10/10/18 at 21:00 Ferric Sodium Gluconate Complex 125 mg/Sodium Chloride 110 ml @ 110 mls/hr DAILY@1300 IVPB Last administered on 10/14/18 12:53; Admin Dose 110 MLS/HR; Start 10/11/18 at 13:00; Stop 10/15/18 at 13:59 Enoxaparin Sodium (Lovenox) 40 mg DAILY SC Last administered on 10/15/18 09:50; Admin Dose 40 MG; Start 10/14/18 at 09:00 Aspirin (Halfprin) 81 mg DAILY PO Last administered on 10/15/18 09:50; Admin Dose 81 MG; Start 10/14/18 at 14:00 Morphine Sulfate (morphine) 2 mg Q4H PRN IV SEVERE PAIN LEVEL 7-10 Last administered on 10/15/18 00:02; Admin Dose 2 MG; Start 10/12/18 at 11:30 Insulin Aspart (Novolog Insulin Pen) NOVOLOG *MODERATE* ALGORITHM WITH MEALS BEDTIME SC Last administered on 10/15/18 12:31; Admin Dose 6 UNIT; Start 10/13/18 at 08:00 Metoclopramide HCl (Reglan) 5 mg TID PO Last administered on 10/15/18 12:34; Admin Dose 5 MG; Start 10/13/18 at 13:00 Sucralfate (Carafate) 1 gm QID PO Last administered on 10/15/18 12:34; Admin Dose 1 GM; Start 10/13/18 at 13:00 Insulin Aspart (Novolog Insulin Pen) 5 unit WITH MEALS SC Last administered on 10/15/18 12:32; Admin Dose 5 UNIT; Start 10/13/18 at 18:00 Insulin Glargine (Lantus) 15 units DAILY@0800 SC Last administered on 10/15/18 07:54; Admin Dose 15 UNITS; Start 10/14/18 at 08:00 Lisinopril (Zestril) 10 mg DAILY PO Last administered on 10/15/18 09:50; Admin Dose 10 MG; Start 10/15/18 at 09:00 Vancomycin HCl (Vanco Iv Per Pharmacy) VANCOMYCIN PER PHARM... PER PROTOCOL XX ; Start 10/14/18 at 13:30 Vancomycin/Sodium Chloride 250 ml @ 125 mls/hr Q12H IVPB Last administered on 10/15/18at 04:58; Admin Dose 125 MLS/HR; Start 10/15/18 at 04:00 OLIVA BOWER Oct 15, 2018 13:31
[2018-10-15 14:14] VITALS: BP 115/64; PULSE 101; RESP 20
--- NOTE | 2018-10-15 14:17 | RADRPT ---
Echocardiogram Report Patient Name: BRYANNA GREYPatient ID: [id number] : 1955 (63y 6m)Study Date: 10/15/2018 8:56:15 AM Gender: MAccession #: [id number] Tech: Tonio Emmanuel [facility] Location: 5563-[id number] Ref.Physician: MARKO PAYAN Height(Cm): BSA: Weight(Kg): Quality: AdequateAccount #: Procedures: Echocardiographic Report: Transthoracic echocardiogram with complete 2D, M-Mode, and doppler examination. Indications: Stroke. Measurements: 2D/M Mode Doppler Measurement Value Normal Range Measurement Value Normal Range LVIDd 2D 4.9 [ 4.2 - 5.8 ] cm AV Peak [place] 1.4 [ 100.0 - 170.0 ] cm/sec LVIDs 2D 3.5 [ 2.5 - 4.0 ] cm AV Peak PG 8.0 [ 2.0 - 9.0 ] mmHg LVPWd 2D 1.2 [ 0.6 - 1.0 ] cm LVOT Peak [place] 1.1 [ 70.0 - 110.0 ] cm/sec IVSd 2D 1.2 [ 0.6 - 1.0 ] cm LVOT Peak PG 4.0 [ 2.0 - 6.0 ] mmHg AoR Diam 2D 3.6 [ 2.6 - 3.4 ] cm MV E Peak [place] 0.7 [ 60.0 - 130.0 ] cm/sec EDV 2D 116.0 [ 62.0 - 150.0 ] ml MV A Peak [place] 1.2 [ 100.0 - 120.0 ] cm/sec ESV 2D 50.9 [ 21.0 - 61.0 ] ml MV E/A 0.5 [ 0.8 - 1.5 ] ratio EF 2D 56.1 [ 52.0 - 72.0 ] percent MV Decel Time 85 [ 104 - 258 ] msec LA Dimen 2D 3.7 [ 3.0 - 4.0 ] cm Lat E` [place] 0.1 [ 10.0 - 15.0 ] cm/sec Lateral E/E` 7.3 [ 1.0 - 2.0 ] ratio Med E` [place] 0.1 cm/sec MV E/A 0.5 [ 0.8 - 1.5 ] ratio TR Peak [place] 3.1 [ 100.0 - 280.0 ] cm/sec TR Peak PG 39.0 mmHg Findings: Left Ventricle: Normal left ventricular cavity size. Left ventricular wall thickness upper limits of normal. Mild left ventricular systolic dysfunction. Ejection fraction is visually estimated at 40-45 %. Tissue Doppler/Mitral Doppler indices are consistent with impaired relaxation (Stage I diastolic dysfunction). Right Ventricle: Normal right ventricular size. Normal right ventricular systolic function. Left Atrium: The left atrium is normal in size. Right Atrium: The right atrium is normal in size. Mitral Valve: Mild mitral leaflet calcification. Mild mitral annular calcification. Mild to moderate mitral valve regurgitation. Aortic Valve: No significant aortic stenosis or insufficiency. Aortic cusps appear mildly calcified. Tricuspid Valve: Normal appearance of the tricuspid valve. Estimated peak PA systolic pressure 39 mmHg. There is mild tricuspid regurgitation. Pulmonic Valve: Pulmonic valve not well visualized. Pericardium: Normal pericardium with no significant pericardial effusion. Left pleural effusion seen. Aorta: Normal aortic root. IVC: Normal size and normal respiratory collapse consistent with normal right atrial pressure. Conclusions: Normal left ventricular cavity size. Left ventricular wall thickness upper limits of normal. Mild left ventricular systolic dysfunction. Ejection fraction is visually estimated at 40-45 %. Tissue Doppler/Mitral Doppler indices are consistent with impaired relaxation (Stage I diastolic dysfunction). Mild mitral leaflet calcification. Mild mitral annular calcification. Mild to moderate mitral valve regurgitation. Normal appearance of the tricuspid valve. Estimated peak PA systolic pressure 39 mmHg. There is mild tricuspid regurgitation. Electronically Signed By: Boogie Romero 2018-10-15 14:16:05 PST
--- NOTE | 2018-10-15 14:42 | CONS ---
Assessment/Plan Assessment/Plan Hospital Course (Demo Recall) Patient is awake eating lunch looks comfortable spiked fever yesterday morning and had been afebrile since that. WBC today 10.5 platelets 467 neutrophils 70.3 BUN 14 creatinine 0.43 Microbiology: Abdominal fluid culture grew Klebsiella pneumonia, blood and urine culture remain negative Chest x-ray 10/13/18 revealed multifocal pneumonia Antimicrobials: Vancomycin, meropenem Physical examination: Well-developed elderly -[place] man in no distress. Head atraumatic normocephalic neck is supple chest rise symmetrical breath sounds diminished bases heart S1-S2 abdomen obese soft bowel sounds present extremities without cyanosis Assessment: 1. Sepsis 2. Liver abscess status post CT-guided drainage 3. Healthcare associated pneumonia 4. Diabetes, poorly controlled 5. Hypertension 6. Bipolar disorder and homelessness 7. Diarrhea, C. difficile negative Plan: Clinically stable, continue abx, reculture prn Consultation Date/Type/Reason Admit Date/Time Oct 02, 2018 at 00:05 Initial Consult Date 10/04/18 Type of Consult id Requesting Provider: HERRERA SALDAÑA NP Date/Time of Note DATE: 10/15/18 TIME: 14:41 Exam/Review of Systems Exam Vitals Vital Signs Date Temp Pulse Resp B/P (MAP) Pulse Ox O2 O2 Flow FiO2 Time Delivery Rate 10/15/18 98.0 101 20 115/64 98 Room Air 14:14 (81) Intake and Output 10/14/18 10/14/18 10/15/18 1515:00 23:00 07:00 IntakeIntake Total 1200 ml 172 ml OutputOutput Total 350 ml BalanceBalance 1200 ml -178 ml Results Result Diagram: 10/15/18 0707 10/15/18 0707 Results 24hrs Laboratory Tests Test 10/14/18 17:18 10/14/18 21:16 10/14/18 21:38 10/15/18 07:07 Bedside Glucose 116 148 Urine Opiates Screen Negative Urine Barbiturates Negative Urine Amphetamines Positive Screen Urine Benzodiazepines Negative Screen Urine Cocaine Screen Negative Urine Cannabinoids Negative White Blood Count 10.5 Red Blood Count 3.12 L Hemoglobin 7.1 L Hematocrit 23.3 L Mean Corpuscular Volume 74.7 L Mean Corpuscular 22.8 L Hemoglobin Mean Corpuscular 30.5 L Hemoglobin Concent Red Cell Distribution 15.4 H Width Platelet Count 467 H Mean Platelet Volume 9.8 Immature Granulocytes % 0.900 H Neutrophils % 70.3 Lymphocytes % 19.4 Monocytes % 8.6 Eosinophils % 0.5 Basophils % 0.3 Nucleated Red Blood 0.0 Cells % Immature Granulocytes # 0.090 H Neutrophils # 7.4 Lymphocytes # 2.0 Monocytes # 0.9 Eosinophils # 0.1 Basophils # 0.0 Nucleated Red Blood 0.0 Cells # Sodium Level 133 L Potassium Level 4.4 Chloride Level 98 Carbon Dioxide Level 31 Anion Gap 4 L Blood Urea Nitrogen 14 Creatinine 0.43 L Est Glomerular Filtrat > 60 Rate mL/min Glucose Level 292 #H Lactic Acid Level 0.7 Calcium Level 7.8 L Phosphorus Level 2.6 Magnesium Level 1.9 Total Bilirubin 0.0 L Direct Bilirubin 0.00 Indirect Bilirubin 0.0 Aspartate Amino 31 Transf (AST/SGOT) Alanine 33 Aminotransferase (ALT/SG PT) Alkaline Phosphatase 1242 H Total Protein 5.7 L Albumin 2.5 L Globulin 3.20 Albumin/Globulin Ratio 0.78 Test 10/15/18 07:41 10/15/18 12:26 Bedside Glucose 350 H 232 H Medications Medication Current Medications Buspirone HCl (Buspar) 5 mg BID PO Last administered on 10/15/18 09:51; Admin Dose 5 MG; Start 10/02/18 at 09:00 Gabapentin (Neurontin) 300 mg TID PO Last administered on 10/15/18 12:34; Admin Dose 300 MG; Start 10/02/18 at 09:00 Ondansetron HCl (Zofran Inj) 4 mg Q6H PRN IV NAUSEA AND/OR VOMITING; Start 10/02/18 at 02:00 Albuterol (Proventil 0.083% (Neb)) 2.5 mg Q2H RESP THERAPY PRN NEB SHORTNESS OF BREATH; Start 10/02/18 at 02:00 Acetaminophen (Tylenol Liquid) 650 mg Q6H PRN PO PAIN LEVEL 1-3 OR FEVER Last administered on 10/14/18 07:57; Admin Dose 650 MG; Start 10/02/18 at 02:00 Menthol/Methyl Salicylate (Memo Erazo) 1 applic TID PRN TOP pain; Start 10/02/18 at 06:30 Tramadol HCl (Ultram) 50 mg Q6H PRN PO MODERATE PAIN LEVEL 4-6 Last administ ered on 10/08/18at 08:04; Admin Dose 50 MG; Start 10/02/18 at 11:00 Potassium Chloride 50 ml @ 50 mls/hr K PROTOCOL PRN IVPB PENDING LAB VALUE Last administered on 10/03/18at 09:55; Admin Dose 50 MLS/HR; Start 10/02/18 at 11:30 Potassium Chloride (Potassium Chloride Pwd/Soln) 20 meq PER PROTOCOL PRN PO POTASSIUM REPLACEMENT PROTOCOL; Start 10/02/18 at 11:30 Potassium Chloride (Potassium Chloride Pwd/Soln) 30 meq PER PROTOCOL PRN PO POTASSIUM REPLACEMENT PROTOCOL; Start 10/02/18 at 11:30 Potassium Chloride (Potassium Chloride Pwd/Soln) 40 meq PER PROTOCOL PRN PO POTASSIUM REPLACEMENT PROTOCOL; Start 10/02/18 at 11:30 Diagnostic Test (Pha) (Accu-Chek) 1 ea 02 XX Last administered on 10/07/18at 0 1:23; Admin Dose 1 EA; Start 10/03/18 at 02:00 Miscellaneous Information 1 ea NOTE XX ; Start 10/02/18 at 22:00 Glucose (Glutose) 15 gm Q15M PRN PO DECREASED GLUCOSE; Start 10/02/18 at 22:00 Glucose (Glutose) 22.5 gm Q15M PRN PO DECREASED GLUCOSE; Start 10/02/18 at 22:00 Dextrose (D50w Syringe) 25 ml Q15M PRN IV DECREASED GLUCOSE Last administered on 10/12/18at 20:44; Admin Dose 25 ML; Start 10/02/18 at 22:00 Dextrose (D50w Syringe) 50 ml Q15M PRN IV DECREASED GLUCOSE Last administered on 10/12/18at 18:15; Admin Dose 50 ML; Start 10/02/18 at 22:00 Glucagon (Glucagen) 1 mg Q15M PRN IM DECREASED GLUCOSE; Start 10/02/18 at 22:00 Glucose (Glutose) 15 gm Q15M PRN BUCCAL DECREASED GLUCOSE; Start 10/02/18 at 22:00 Diagnostic Test (Pha) (Accu-Chek) 1 ea AC MEALS AND BEDTIME XX Last administered on 10/15/18 12:27; Admin Dose 1 EA; Start 10/03/18 at 17:05 Calcium Carbonate (Tums) 500 mg Q4 PRN PO epigastric pain Last administered on 10/05/18 01:34; Admin Dose 500 MG; Start 10/05/18 at 01:30 Pantoprazole (Protonix Tab) 40 mg DAILY@06 PO Last administered on 10/15/18 05:03; Admin Dose 40 MG; Start 10/06/18 at 06:00 Lactobacillus Acidophilus/ Rhamnosus (Culturelle) 1 cap BID PO Last adm inistered on 10/15/18 09:50; Admin Dose 1 CAP; Start 10/08/18 at 21:00 Acetaminophen/ Hydrocodone Bitart ([place] (10/325)) 1 tab Q6H PRN PO SEVERE PAIN LEVEL 7-10 Last administered on 10/14/18 21:31; Admin Dose 1 TAB; Start 10/08/18 at 14:30 Nicotine (Nicoderm 14 Mg/ 24hr) 1 patch DAILY TRANSDERM Last administered on 10/15/18 09:49; Admin Dose 1 PATCH; Start 10/08/18 at 14:30 Loperamide HCl (Imodium Cap) 2 mg QID PRN PO DIARRHEA; Start 10/09/18 at 12:11 Atorvastatin Calcium (Lipitor) 20 mg QHS PO ; Start 10/15/18 at 21:00 Hydrocortisone (Anusol-Hc Supp) 25 mg TID PRN [place] HEMORROID PAIN/ITCHING; Start 10/09/18 at 13:30 Potassium Chloride (Potassium Chloride Pwd/Soln) 20 meq DAILY PO Last ad ministered on 10/15/18 09:49; Admin Dose 20 MEQ; Start 10/09/18 at 13:30 Meropenem/Sodium Chloride 50 ml @ 100 mls/hr Q12 IVPB Last administered on 10/15/18 09:51; Admin Dose 100 MLS/HR; Start 10/10/18 at 21:00 Enoxaparin Sodium (Lovenox) 40 mg DAILY SC Last administered on 10/15/18 09:50; Admin Dose 40 MG; Start 10/14/18 at 09:00 Aspirin (Halfprin) 81 mg DAILY PO Last administered on 10/15/18 09:50; Admin Dose 81 MG; Start 10/14/18 at 14:00 Morphine Sulfate (morphine) 2 mg Q4H PRN IV SEVERE PAIN LEVEL 7-10 Last administered on 10/15/18 00:02; Admin Dose 2 MG; Start 10/12/18 at 11:30 Insulin Aspart (Novolog Insulin Pen) NOVOLOG *MODERATE* ALGORITHM WITH MEALS BEDTIME SC Last administered on 10/15/18 12:31; Admin Dose 6 UNIT; Start 10/13/18 at 08:00 Metoclopramide HCl (Reglan) 5 mg TID PO Last administered on 10/15/18 12:34; Admin Dose 5 MG; Start 10/13/18 at 13:00 Sucralfate (Carafate) 1 gm QID PO Last administered on 10/15/18 12:34; Admin Dose 1 GM; Start 10/13/18 at 13:00 Insulin Aspart (Novolog Insulin Pen) 5 unit WITH MEALS SC Last administered on 10/15/18 12:32; Admin Dose 5 UNIT; Start 10/13/18 at 18:00 Insulin Glargine (Lantus) 15 units DAILY@0800 SC Last administered on 10/15/18 07:54; Admin Dose 15 UNITS; Start 10/14/18 at 08:00 Lisinopril (Zestril) 10 mg DAILY PO Last administered on 10/15/18 09:50; Admin Dose 10 MG; Start 10/15/18 at 09:00 Vancomycin HCl (Vanco Iv Per Pharmacy) VANCOMYCIN PER PHARM... PER PROTOCOL XX ; Start 10/14/18 at 13:30 Vancomycin/Sodium Chloride 250 ml @ 125 mls/hr Q12H IVPB Last administered on 10/15/18 04:58; Admin Dose 125 MLS/HR; Start 10/15/18 at 04:00 Miscellaneous Information (*Rx Drug Level Order Reminder*) VANCO TR 10/16 AT 0300 ONCE ONCE XX ; Start 10/16/18 at 03:00; Stop 10/16/18 at 03:01 AURORA ARZOLA NP Oct 15, 2018 14:42
--- NOTE | 2018-10-15 17:02 | PN ---
Date/Time of Note Date/Time of Note DATE: 10/15/18 TIME: 16:56 Assessment/Plan VTE Prophylaxis Risk score (from Ns)>0 risk: 3 SCD applied (from Ns): No SCD contraindicated: patient refusal Pharmacological prophylaxis: NA/contraindicated Pharm contraindication: anticoag not tolerated Lines/Catheters IV C[facility] Type [facility]from [facility] Sal[place] Lock Urinary Cath still in place: No Assessment/Plan Hospital Course SUBJECTIVE: The patient keeps asking for more food. The patient's blood sugars are uncontrolled because of the same. The patient was found to have a methamphetamine pipe in his room. OBJECTIVE: Physical Exam General: Adequately build 62 year-old male lying in bed in no apparent distress. HEENT: Normocephalic, atraumatic. Eyes: Anicteric sclerae, conjunctivae clear. ENT: Nasal septum midline, oral mucosa moist. Neck supple, no JVD noticed. Respiratory: Bilaterally clear breath sounds. No use of accessory muscles of respiration. No adventitious breath sounds. Cardiovascular: S1, S2 heard. Regular rate and rhythm. Abdomen: Soft, nontender, and nondistended. Bowel sounds positive in all 4 quadrants. Genitourinary: Deferred. Extremities: No cyanosis, no clubbing, no edema. Peripheral pulses palpable. Neurologic: The patient is awake, alert, and oriented. Vitals & Labs per chart. ASSESSMENT & PLAN 63-year-old male with past medical history of diabetes mellitus, bipolar disord er, chronic back pain, and homelessness who came to the emergency room with multiple complaints. The patient was noticed to have underlying hyperglycemia. The patient did not have any evidence of DKA. The patient was admitted to inpatient setting for further treatment and evaluation. 1. -Hyperglycemia. -S/P insulin drip. -No evidence of any DKA. -Continue sliding scale insulin along with pre-meal insulin basal insulin. 2. Diabetes mellitus. -Uncontrolled. -Hemoglobin A1C >14. -Continue SSI along with pre-meal insulin and basal insulin. 3. Bipolar disorder. -Continue mood stabilizers. 4. Hyponatremia. -Etiology could be multifactorial including underlying hyperglycemia. -Correct hyperglycemia. -Resolved. 5. Essential hypertension. -Continue antihypertensives. 6. Dyslipidemia. -Continue statins. 7. Transaminitis. -Etiology unclear. -Hepatitis panel negative. 8. Anemia. -Microcytic and hypochromic. -Stool OB X1 positive. Repeat stool for OB negative. -Elevated LDH with CBC from admission showing nucleated RBC, concerning for hemolytic anemia. Obtain hematology consult. -Patient was noncompliant with status post hematology bowel preparation. -Status post hematology evaluation who conveyed that the patient's anemia is secondary to underlying iron deficiency. 9. . Liver abscess. -Status post CT-guided aspiration on 10/09/2018. -Fluid culture showing Klebsiella pneumoniae. -Continue antimicrobials as per ID. 10. Cardiomyopathy. -Ejection fraction 40-45%. -Continue KRYSTYNA inhibitors. -Add beta-blockers if tolerated. 11. Subacute/late subacute lacunar infarct. -Continue aspirin and statins. 12. Homelessness. 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 13. Severe protein calorie malnutrition. -Dietary consult. -Dietary supplements. 14. Non-compliance with medications and diet. -Reinforced importance of compliance. 15. Bilateral infiltrates on chest x-ray. -Fluid versus pneumonia. -Continue antimicrobials. -Spot diuretics. 16. Fluids, electrolytes, and nutrition. -Carbohydrate controlled diet. 17. DVT prophylaxis. -SQ Lovenox. -Held because of worsening anemia. 18. Plan. -Continue antimicrobials as per ID. -Continue iron supplements. -Had a meeting at the patient's bedside with nurse manager stylist, primary RN, registered dietitian, socially responsible investment adviser, rifle case repairer, and myself. Informed the patient about the plan of care. The patient was seen in collaboration with Dr. Arriaga. Result Diagram: 10/15/18 0707 10/15/18 0707 Results 24hrs Laboratory Tests Test 10/14/18 17:18 10/14/18 21:16 10/14/18 21:38 10/15/18 07:07 Bedside Glucose 116 148 Urine Opiates Screen Negative Urine Barbiturates Negative Urine Amphetamines Positive Screen Urine Benzodiazepines Negative Screen Urine Cocaine Screen Negative Urine Cannabinoids Negative White Blood Count 10.5 Red Blood Count 3.12 L Hemoglobin 7.1 L Hematocrit 23.3 L Mean Corpuscular Volume 74.7 L Mean Corpuscular 22.8 L Hemoglobin Mean Corpuscular 30.5 L Hemoglobin Concent Red Cell Distribution 15.4 H Width Platelet Count 467 H Mean Platelet Volume 9.8 Immature Granulocytes % 0.900 H Neutrophils % 70.3 Lymphocytes % 19.4 Monocytes % 8.6 Eosinophils % 0.5 Basophils % 0.3 Nucleated Red Blood 0.0 Cells % Immature Granulocytes # 0.090 H Neutrophils # 7.4 Lymphocytes # 2.0 Monocytes # 0.9 Eosinophils # 0.1 Basophils # 0.0 Nucleated Red Blood 0.0 Cells # Sodium Level 133 L Potassium Level 4.4 Chloride Level 98 Carbon Dioxide Level 31 Anion Gap 4 L Blood Urea Nitrogen 14 Creatinine 0.43 L Est Glomerular Filtrat > 60 Rate mL/min Glucose Level 292 #H Lactic Acid Level 0.7 Calcium Level 7.8 L Phosphorus Level 2.6 Magnesium Level 1.9 Total Bilirubin 0.0 L Direct Bilirubin 0.00 Indirect Bilirubin 0.0 Aspartate Amino 31 Transf (AST/SGOT) Alanine 33 Aminotransferase (ALT/SG PT) Alkaline Phosphatase 1242 H Total Protein 5.7 L Albumin 2.5 L Globulin 3.20 Albumin/Globulin Ratio 0.78 Test 10/15/18 07:41 10/15/18 12:26 10/15/18 16:20 Bedside Glucose 350 H 232 H 113 Exam/Review of Systems Exam Vitals Vital Signs Date Temp Pulse Resp B/P (MAP) Pulse Ox O2 O2 Flow FiO2 Time Delivery Rate 10/15/18 98.0 101 20 115/64 98 Room Air 14:14 (81) Intake and Output 10/14/18 10/14/18 10/15/18 1515:00 23:00 07:00 IntakeIntake Total 1200 ml 172 ml OutputOutput Total 350 ml BalanceBalance 1200 ml -178 ml Results Results 24hrs Laboratory Tests Test 10/14/18 17:18 10/14/18 21:16 10/14/18 21:38 10/15/18 07:07 Bedside Glucose 116 148 Urine Opiates Screen Negative Urine Barbiturates Negative Urine Amphetamines Positive Screen Urine Benzodiazepines Negative Screen Urine Cocaine Screen Negative Urine Cannabinoids Negative White Blood Count 10.5 Red Blood Count 3.12 L Hemoglobin 7.1 L Hematocrit 23.3 L Mean Corpuscular Volume 74.7 L Mean Corpuscular 22.8 L Hemoglobin Mean Corpuscular 30.5 L Hemoglobin Concent Red Cell Distribution 15.4 H Width Platelet Count 467 H Mean Platelet Volume 9.8 Immature Granulocytes % 0.900 H Neutrophils % 70.3 Lymphocytes % 19.4 Monocytes % 8.6 Eosinophils % 0.5 Basophils % 0.3 Nucleated Red Blood 0.0 Cells % Immature Granulocytes # 0.090 H Neutrophils # 7.4 Lymphocytes # 2.0 Monocytes # 0.9 Eosinophils # 0.1 Basophils # 0.0 Nucleated Red Blood 0.0 Cells # Sodium Level 133 L Potassium Level 4.4 Chloride Level 98 Carbon Dioxide Level 31 Anion Gap 4 L Blood Urea Nitrogen 14 Creatinine 0.43 L Est Glomerular Filtrat > 60 Rate mL/min Glucose Level 292 #H Lactic Acid Level 0.7 Calcium Level 7.8 L Phosphorus Level 2.6 Magnesium Level 1.9 Total Bilirubin 0.0 L Direct Bilirubin 0.00 Indirect Bilirubin 0.0 Aspartate Amino 31 Transf (AST/SGOT) Alanine 33 Aminotransferase (ALT/SG PT) Alkaline Phosphatase 1242 H Total Protein 5.7 L Albumin 2.5 L Globulin 3.20 Albumin/Globulin Ratio 0.78 Test 10/15/18 07:41 10/15/18 12:26 10/15/18 16:20 Bedside Glucose 350 H 232 H 113 Medications Medication Current Medications Buspirone HCl (Buspar) 5 mg BID PO Last administered on 10/15/18 09:51; Admin Dose 5 MG; Start 10/02/18 at 09:00 Gabapentin (Neurontin) 300 mg TID PO Last administered on 10/15/18 12:34; Admin Dose 300 MG; Start 10/02/18 at 09:00 Ondansetron HCl (Zofran Inj) 4 mg Q6H PRN IV NAUSEA AND/OR VOMITING; Start 10/02/18 at 02:00 Albuterol (Proventil 0.083% (Neb)) 2.5 mg Q2H RESP THERAPY PRN NEB SHORTNESS OF BREATH; Start 10/02/18 at 02:00 Acetaminophen (Tylenol Liquid) 650 mg Q6H PRN PO PAIN LEVEL 1-3 OR FEVER Last administered on 10/14/18 07:57; Admin Dose 650 MG; Start 10/02/18 at 02:00 Menthol/Methyl Salicylate (Memo Erazo) 1 applic TID PRN TOP pain; Start 10/02/18 at 06:30 Tramadol HCl (Ultram) 50 mg Q6H PRN PO MODERATE PAIN LEVEL 4-6 Last a dministered on 10/08/18 08:04; Admin Dose 50 MG; Start 10/02/18 at 11:00 Potassium Chloride 50 ml @ 50 mls/hr K PROTOCOL PRN IVPB PENDING LAB VALUE Last administered on 10/03/18 09:55; Admin Dose 50 MLS/HR; Start 10/02/18 at 11:30 Potassium Chloride (Potassium Chloride Pwd/Soln) 20 meq PER PROTOCOL PRN PO POTASSIUM REPLACEMENT PROTOCOL; Start 10/02/18 at 11:30 Potassium Chloride (Potassium Chloride Pwd/Soln) 30 meq PER PROTOCOL PRN PO POTASSIUM REPLACEMENT PROTOCOL; Start 10/02/18 at 11:30 Potassium Chloride (Potassium Chloride Pwd/Soln) 40 meq PER PROTOCOL PRN PO POTASSIUM REPLACEMENT PROTOCOL; Start 10/02/18 at 11:30 Diagnostic Test (Pha) (Accu-Chek) 1 ea 02 XX Last administered on 10/07/18 01:23; Admin Dose 1 EA; Start 10/03/18 at 02:00 Miscellaneous Information 1 ea NOTE XX ; Start 10/02/18 at 22:00 Glucose (Glutose) 15 gm Q15M PRN PO DECREASED GLUCOSE; Start 10/02/18 at 22:00 Glucose (Glutose) 22.5 gm Q15M PRN PO DECREASED GLUCOSE; Start 10/02/18 at 22:00 Dextrose (D50w Syringe) 25 ml Q15M PRN IV DECREASED GLUCOSE Last administered on 10/12/18 20:44; Admin Dose 25 ML; Start 10/02/18 at 22:00 Dextrose (D50w Syringe) 50 ml Q15M PRN IV DECREASED GLUCOSE Last administered on 10/12/18 18:15; Admin Dose 50 ML; Start 10/02/18 at 22:00 Glucagon (Glucagen) 1 mg Q15M PRN IM DECREASED GLUCOSE; Start 10/02/18 at 22:00 Glucose (Glutose) 15 gm Q15M PRN BUCCAL DECREASED GLUCOSE; Start 10/02/18 at 22:00 Diagnostic Test (Pha) (Accu-Chek) 1 ea AC MEALS AND BEDTIME XX Last admi nistered on 10/15/18at 12:27; Admin Dose 1 EA; Start 10/03/18 at 17:05 Calcium Carbonate (Tums) 500 mg Q4 PRN PO epigastric pain Last administered on 10/05/18at 01:34; Admin Dose 500 MG; Start 10/05/18 at 01:30 Pantoprazole (Protonix Tab) 40 mg DAILY@06 PO Last administered on 10/15/18 05:03; Admin Dose 40 MG; Start 10/06/18 at 06:00 Lactobacillus Acidophilus/ Rhamnosus (Culturelle) 1 cap BID PO Last administered on 10/15/18 09:50; Admin Dose 1 CAP; Start 10/08/18 at 21:00 Acetaminophen/ Hydrocodone Bitart ([place] (10/325)) 1 tab Q6H PRN PO SEVERE PAIN LEVEL 7-10 Last administered on 10/14/18 21:31; Admin Dose 1 TAB; Start 10/08/18 at 14:30 Nicotine (Nicoderm 14 Mg/ 24hr) 1 patch DAILY TRANSDERM Last administered on 10/15/18 09:49; Admin Dose 1 PATCH; Start 10/08/18 at 14:30 Loperamide HCl (Imodium Cap) 2 mg QID PRN PO DIARRHEA; Start 10/09/18 at 12:11 Atorvastatin Calcium (Lipitor) 20 mg QHS PO ; Start 10/15/18 at 21:00 Hydrocortisone (Anusol-Hc Supp) 25 mg TID PRN [place] HEMORROID PAIN/ITCHING; Start 10/09/18 at 13:30 Potassium Chloride (Potassium Chloride Pwd/Soln) 20 meq DAILY PO Last administered on 10/15/18 09:49; Admin Dose 20 MEQ; Start 10/09/18 at 13:30 Meropenem/Sodium Chloride 50 ml @ 100 mls/hr Q12 IVPB Last administered on 10/15/18 09:51; Admin Dose 100 MLS/HR; Start 10/10/18 at 21:00 Enoxaparin Sodium (Lovenox) 40 mg DAILY SC Last administered on 10/15/18 09:50; Admin Dose 40 MG; Start 10/14/18 at 09:00 Aspirin (Halfprin) 81 mg DAILY PO Last administered on 10/15/18 09:50; Admin Dose 81 MG; Start 10/14/18 at 14:00 Insulin Aspart (Novolog Insulin Pen) NOVOLOG *MODERATE* ALGORITHM WITH MEALS BEDTIME SC Last administered on 10/15/18 12:31; Admin Dose 6 UNIT; Start 10/13/18 at 08:00 Metoclopramide HCl (Reglan) 5 mg TID PO Last administered on 10/15/18 12:34; Admin Dose 5 MG; Start 10/13/18 at 13:00 Sucralfate (Carafate) 1 gm QID PO Last administered on 10/15/18 12:34; Admin Dose 1 GM; Start 10/13/18 at 13:00 Insulin Aspart (Novolog Insulin Pen) 5 unit WITH MEALS SC Last administered on 10/15/18 12:32; Admin Dose 5 UNIT; Start 10/13/18 at 18:00 Insulin Glargine (Lantus) 15 units DAILY@0800 SC Last administered on 10/15/18 07:54; Admin Dose 15 UNITS; Start 10/14/18 at 08:00 Lisinopril (Zestril) 10 mg DAILY PO Last administered on 10/15/18 09:50; Admin Dose 10 MG; Start 10/15/18 at 09:00 Vancomycin HCl (Vanco Iv Per Pharmacy) VANCOMYCIN PER PHARM... PER PROTOCOL XX ; Start 10/14/18 at 13:30 Vancomycin/Sodium Chloride 250 ml @ 125 mls/hr Q12H IVPB Last administered on 10/15/18at 16:14; Admin Dose 125 MLS/HR; Start 10/15/18 at 04:00 Miscellaneous Information (*Rx Drug Level Order Reminder*) VANCO TR 10/16 AT 0300 ONCE ONCE XX ; Start 10/16/18 at 03:00; Stop 10/16/18 at 03:01 Morphine Sulfate (morphine) 6 mg Q4H PRN PO SEVERE PAIN LEVEL 7-10; Start 10/15/18 at 15:30 HERRERA SALDAÑA NP Oct 15, 2018 17:02
--- NOTE | 2018-10-15 18:09 | CONS ---
Assessment/Plan Assessment/Plan Hospital Course 63 M c/ DM 2, bipolar d/o, and other comorbidities, who is admitted to [facility] for evaluation of a multitude of complaints. He reports sudden R eye vision loss on 10/13, for which neurology is consulted.. 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 A primary ophthalmologic process remains a consideration.. It is possible, too, that his vision loss is progressive rather than sudden...and perhaps attributable to poorly controlled DM 2... CUS is without significant stenosis.. Echo reveals EF of 40-45% but is otherwise unrevealing. LDL 81 UDS + amphetamines... P: Await ESR, RPR. Continue asa/low dose lipitor daily for secondary stroke prevention Other management per primary Consultation Date/Type/Reason Admit Date/Time Oct 02, 2018 at 00:05 Type of Consult Neurology Reason for Consultation LLE pain Requesting Provider: HERRERA SALDAÑA NP Date/Time of Note DATE: 10/15/18 TIME: 18:01 24 HR Interval Summary Free Text/Dictation Continues medsurg monitoring. Exam Vital Signs Vitals Vital Signs Date Temp Pulse Resp B/P (MAP) Pulse Ox O2 O2 Flow FiO2 Time Delivery Rate 10/15/18 98.0 101 20 115/64 98 Room Air 14:14 (81) Intake and Output 10/14/18 10/14/18 10/15/18 1414:59 22:59 06:59 IntakeIntake Total 1200 ml 172 ml OutputOutput Total 350 ml BalanceBalance 1200 ml -178 ml Exam PE: Gen Appearance: No Apparent Distress HEENT: Normocephalic Cardiovascular: Regular rate Abdomen: Soft Extremities: Dry NE: The patient was alert and oriented. Language was normal. Fund of knowledge was normal. Pupils were reactive to light. There was no afferent pupillary defect. Visual iraheta were diminished b/l. Funduscopic examination was limited. Extra-ocular movements were full. Ptosis was absent. There was no nystagmus. Facial sensation was normal. Face was symmetric with normal strength. Hearing was intact. Palate movements were normal. Neck strength was normal. There was normal tongue bulk and speed of movement. Tone was normal. Muscle bulk was normal. I did not see fasciculations. Arms and legs were strong. Vibration sensation was normal. Temperature and pinprick sensation was normal. Rapid alternating movements were normal. There was no dysmetria. There was no intention tremor. Gait was deferred due to bedrest. Arm and leg reflexes were symmetric. Houser's sign was absent. Plantar responses were flexor. GURMEET SUMMERS NP Oct 15, 2018 18:09
[2018-10-15] MEDS: ATORVASTATIN 20 MG TAB PO SCH (20:14)
[2018-10-15 20:18] VITALS: BP 119/59; PULSE 110; RESP 20
[2018-10-16] MEDS: ACCU-CHEK XX SCH ×5 (01:44→21:00)
[2018-10-16 02:00] VITALS: BP 137/74; PULSE 110; RESP 20
[2018-10-16] MEDS: VANCOMYCIN 750 MG (PMX) 250 ML IVPB SCH ×3 (04:21→21:02)
[2018-10-16] MEDS: PANTOPRAZOLE (EC) 40 MG TAB PO SCH (05:27)
--- NOTE | 2018-10-16 05:43 | PN ---
Date/Time of Note Date/Time of Note DATE: 10/16/18 TIME: 05:43 Assessment/Plan VTE Prophylaxis Risk score (from Ns)>0 risk: 4 SCD applied (from [facility] [place]): No SCD contraindicated: patient refusal Pharmacological prophylaxis: NA/contraindicated Pharm contraindication: anticoag not tolerated Lines/Catheters IV C[facility]ter Type (from [facility]): Peripheral IV Urinary Cath still in place: No Assessment/Plan Hospital Course SUBJECTIVE: Continues to ask for food. OBJECTIVE: Physical Exam General: Adequately build 62 year-old male lying in bed in no apparent distress. HEENT: Normocephalic, atraumatic. Eyes: Anicteric sclerae, conjunctivae clear. ENT: Nasal septum midline, oral mucosa moist. Neck supple, no JVD noticed. Respiratory: Bilaterally clear breath sounds. No use of accessory muscles of respiration. No adventitious breath sounds. Cardiovascular: S1, S2 heard. Regular rate and rhythm. Abdomen: Soft, nontender, and nondistended. Bowel sounds positive in all 4 quadrants. Genitourinary: Deferred. Extremities: No cyanosis, no clubbing, no edema. Peripheral pulses palpable. Neurologic: The patient is awake, alert, and oriented. Vitals & Labs per chart. ASSESSMENT & PLAN 63-year-old male with past medical history of diabetes mellitus, bipolar disorder, chronic back pain, and homelessness who came to the emergency room with multiple complaints. The patient was noticed to have underlying hyperglycemia. The patient did not have any evidence of DKA. The patient was admitted to inpatient setting for further treatment and evaluation. 1. -Hyperglycemia. -S/P insulin drip. -No evidence of any DKA. -Continue sliding scale insulin along with pre-meal insulin basal insulin. 2. Diabetes mellitus. -Uncontrolled. -Hemoglobin A1C >14. -Continue SSI along with pre-meal insulin and basal insulin. 3. Bipolar disorder. -Continue mood stabilizers. 4. Hyponatremia. -Etiology could be multifactorial including underlying hyperglycemia. -Correct hyperglycemia. -Resolved. 5. Essential hypertension. -Continue antihypertensives. 6. Dyslipidemia. -Continue statins. 7. Transaminitis. -Etiology unclear. -Hepatitis panel negative. 8. Anemia. -Microcytic and hypochromic. -Stool OB X1 positive. Repeat stool for OB negative. -Elevated LDH with CBC from admission showing nucleated RBC, concerning for hemolytic anemia. Obtain hematology consult. -Patient was noncompliant with status post hematology bowel preparation. -Status post hematology evaluation who conveyed that the patient's anemia is secondary to underlying iron deficiency. 9. Liver abscess. -Status post CT-guided aspiration on 10/09/2018. -Fluid culture showing Klebsiella pneumoniae. -Continue antimicrobials as per ID. 10. Cardiomyopathy. -Ejection fraction 40-45%. -Continue KRYSTYNA inhibitors. -Add beta-blockers if tolerated. 11. Subacute/late subacute lacunar infarct. -Continue aspirin and statins. 12. Homelessness. -pest control worker helper consult. 13. Severe protein calorie malnutrition. -Dietary consult. -Dietary supplements. 14. Non-compliance with medications and diet. -Reinforced importance of compliance. 15. Bilateral infiltrates on chest x-ray. -Fluid versus pneumonia. -Continue antimicrobials. -Spot diuretics. 16. Fluids, electrolytes, and nutrition. -Carbohydrate controlled diet. 17. DVT prophylaxis. -SQ Lovenox. -Held because of worsening anemia. 18. Plan. -Continue antimicrobials as per ID. -Continue iron supplements. -Repeat abdominal CT with liver protocol to evaluate for improvement in abscess The patient was seen in collaboration with Dr. Arriaga. Result Diagram: 10/16/18 0332 10/16/18 0332 Results 24hrs Laboratory Tests Test 10/15/18 07:07 10/15/18 07:41 10/15/18 12:26 10/15/18 16:20 White Blood Count 10.5 Red Blood Count 3.12 L Hemoglobin 7.1 L Hematocrit 23.3 L Mean Corpuscular Volume 74.7 L Mean Corpuscular 22.8 L Hemoglobin Mean Corpuscular 30.5 L Hemoglobin Concent Red Cell Distribution 15.4 H Width Platelet Count 467 H Mean Platelet Volume 9.8 Immature Granulocytes % 0.900 H Neutrophils % 70.3 Lymphocytes % 19.4 Monocytes % 8.6 Eosinophils % 0.5 Basophils % 0.3 Nucleated Red Blood 0.0 Cells % Immature Granulocytes # 0.090 H Neutrophils # 7.4 Lymphocytes # 2.0 Monocytes # 0.9 Eosinophils # 0.1 Basophils # 0.0 Nucleated Red Blood 0.0 Cells # Sodium Level 133 L Potassium Level 4.4 Chloride Level 98 Carbon Dioxide Level 31 Anion Gap 4 L Blood Urea Nitrogen 14 Creatinine 0.43 L Est Glomerular Filtrat > 60 Rate mL/min Glucose Level 292 #H Lactic Acid Level 0.7 Calcium Level 7.8 L Phosphorus Level 2.6 Magnesium Level 1.9 Total Bilirubin 0.0 L Direct Bilirubin 0.00 Indirect Bilirubin 0.0 Aspartate Amino 31 Transf (AST/SGOT) Alanine 33 Aminotransferase (ALT/SG PT) Alkaline Phosphatase 1242 H Total Protein 5.7 L Albumin 2.5 L Globulin 3.20 Albumin/Globulin Ratio 0.78 Bedside Glucose 350 H 232 H 113 Test 10/15/18 17:08 10/15/18 20:13 10/16/18 01:13 10/16/18 02:07 Bedside Glucose 144 89 134 166 Test 10/16/18 03:32 White Blood Count 10.3 Red Blood Count 3.19 L Hemoglobin 7.4 L Hematocrit 24.1 L Mean Corpuscular Volume 75.5 L Mean Corpuscular 23.2 L Hemoglobin Mean Corpuscular 30.7 L Hemoglobin Concent Red Cell Distribution 15.3 H Width Platelet Count 513 H Mean Platelet Volume 9.2 Immature Granulocytes % 1.300 H Neutrophils % 73.8 Lymphocytes % 14.3 L Monocytes % 9.4 Eosinophils % 0.6 Basophils % 0.6 Nucleated Red Blood 0.0 Cells % Immature Granulocytes # 0.130 H Neutrophils # 7.6 H Lymphocytes # 1.5 Monocytes # 1.0 H Eosinophils # 0.1 Basophils # 0.1 Nucleated Red Blood 0.0 Cells # Sodium Level 135 Potassium Level 4.4 Chloride Level 100 Carbon Dioxide Level 30 Anion Gap 5 Blood Urea Nitrogen 17 Creatinine 0.54 L Est Glomerular Filtrat > 60 Rate mL/min Glucose Level 168 # Calcium Level 8.1 L Phosphorus Level 2.6 Magnesium Level 2.0 Total Bilirubin 0.0 L Direct Bilirubin 0.00 Indirect Bilirubin 0.0 Aspartate Amino 36 Transf (AST/SGOT) Alanine 33 Aminotransferase (ALT/SG PT) Alkaline Phosphatase 1408 H B-Type Natriuretic 2940 H Peptide Total Protein 6.0 L Albumin 2.6 L Globulin 3.40 H Albumin/Globulin Ratio 0.76 Vancomycin Level Trough 5.9 L Exam/Review of Systems Exam Vitals Vital Signs Date Temp Pulse Resp B/P (MAP) Pulse Ox O2 O2 Flow FiO2 Time Delivery Rate 10/16/18 99.7 110 20 137/74 95 02:00 (95) 10/15/18 Room Air 14:14 Intake and Output 310/15/18 10/16/18 1515:00 23:00 07:00 IntakeIntake Total 160 ml 250 ml OutputOutput Total 820 ml BalanceBalance 160 ml 250 ml -820 ml Results Results 24hrs Laboratory Tests Test 10/15/18 07:07 10/15/18 07:41 10/15/18 12:26 10/15/18 16:20 White Blood Count 10.5 Red Blood Count 3.12 L Hemoglobin 7.1 L Hematocrit 23.3 L Mean Corpuscular Volume 74.7 L Mean Corpuscular 22.8 L Hemoglobin Mean Corpuscular 30.5 L Hemoglobin Concent Red Cell Distribution 15.4 H Width Platelet Count 467 H Mean Platelet Volume 9.8 Immature Granulocytes % 0.900 H Neutrophils % 70.3 Lymphocytes % 19.4 Monocytes % 8.6 Eosinophils % 0.5 Basophils % 0.3 Nucleated Red Blood 0.0 Cells % Immature Granulocytes # 0.090 H Neutrophils # 7.4 Lymphocytes # 2.0 Monocytes # 0.9 Eosinophils # 0.1 Basophils # 0.0 Nucleated Red Blood 0.0 Cells # Sodium Level 133 L Potassium Level 4.4 Chloride Level 98 Carbon Dioxide Level 31 Anion Gap 4 L Blood Urea Nitrogen 14 Creatinine 0.43 L Est Glomerular Filtrat > 60 Rate mL/min Glucose Level 292 #H Lactic Acid Level 0.7 Calcium Level 7.8 L Phosphorus Level 2.6 Magnesium Level 1.9 Total Bilirubin 0.0 L Direct Bilirubin 0.00 Indirect Bilirubin 0.0 Aspartate Amino 31 Transf (AST/SGOT) Alanine 33 Aminotransferase (ALT/SG PT) Alkaline Phosphatase 1242 H Total Protein 5.7 L Albumin 2.5 L Globulin 3.20 Albumin/Globulin Ratio 0.78 Bedside Glucose 350 H 232 H 113 Test 10/15/18 17:08 10/15/18 20:13 10/16/18 01:13 10/16/18 02:07 Bedside Glucose 144 89 134 166 Test 10/16/18 03:32 White Blood Count 10.3 Red Blood Count 3.19 L Hemoglobin 7.4 L Hematocrit 24.1 L Mean Corpuscular Volume 75.5 L Mean Corpuscular 23.2 L Hemoglobin Mean Corpuscular 30.7 L Hemoglobin Concent Red Cell Distribution 15.3 H Width Platelet Count 513 H Mean Platelet Volume 9.2 Immature Granulocytes % 1.300 H Neutrophils % 73.8 Lymphocytes % 14.3 L Monocytes % 9.4 Eosinophils % 0.6 Basophils % 0.6 Nucleated Red Blood 0.0 Cells % Immature Granulocytes # 0.130 H Neutrophils # 7.6 H Lymphocytes # 1.5 Monocytes # 1.0 H Eosinophils # 0.1 Basophils # 0.1 Nucleated Red Blood 0.0 Cells # Sodium Level 135 Potassium Level 4.4 Chloride Level 100 Carbon Dioxide Level 30 Anion Gap 5 Blood Urea Nitrogen 17 Creatinine 0.54 L Est Glomerular Filtrat > 60 Rate mL/min Glucose Level 168 # Calcium Level 8.1 L Phosphorus Level 2.6 Magnesium Level 2.0 Total Bilirubin 0.0 L Direct Bilirubin 0.00 Indirect Bilirubin 0.0 Aspartate Amino 36 Transf (AST/SGOT) Alanine 33 Aminotransferase (ALT/SG PT) Alkaline Phosphatase 1408 H B-Type Natriuretic 2940 H Peptide Total Protein 6.0 L Albumin 2.6 L Globulin 3.40 H Albumin/Globulin Ratio 0.76 Vancomycin Level Trough 5.9 L Medications Medication Current Medications Buspirone HCl (Buspar) 5 mg BID PO Last administered on 10/15/18 20:14; Admin Dose 5 MG; Start 10/02/18 at 09:00 Gabapentin (Neurontin) 300 mg TID PO Last administered on 10/15/18 20:14; Admin Dose 300 MG; Start 10/02/18 at 09:00 Ondansetron HCl (Zofran Inj) 4 mg Q6H PRN IV NAUSEA AND/OR VOMITING; Start 10/02/18 at 02:00 Albuterol (Proventil 0.083% (Neb)) 2.5 mg Q2H RESP THERAPY PRN NEB SHORTNESS OF BREATH; Start 10/02/18 at 02:00 Acetaminophen (Tylenol Liquid) 650 mg Q6H PRN PO PAIN LEVEL 1-3 OR FEVER Last administered on 10/14/18 07:57; Admin Dose 650 MG; Start 10/02/18 at 02:00 Menthol/Methyl Salicylate (Memo Erazo) 1 applic TID PRN TOP pain; Start 10/02/18 at 06:30 Tramadol HCl (Ultram) 50 mg Q6H PRN PO MODERATE PAIN LEVEL 4-6 Last administered on 10/08/18 08:04; Admin Dose 50 MG; Start 10/02/18 at 11:00 Potassium Chloride 50 ml @ 50 mls/hr K PROTOCOL PRN IVPB PENDING LAB VALUE Last administered on 10/03/18at 09:55; Admin Dose 50 MLS/HR; Start 10/02/18 at 11:30 Potassium Chloride (Potassium Chloride Pwd/Soln) 20 meq PER PROTOCOL PRN PO POTASSIUM REPLACEMENT PROTOCOL; Start 10/02/18 at 11:30 Potassium Chloride (Potassium Chloride Pwd/Soln) 30 meq PER PROTOCOL PRN PO POTASSIUM REPLACEMENT PROTOCOL; Start 10/02/18 at 11:30 Potassium Chloride (Potassium Chloride Pwd/Soln) 40 meq PER PROTOCOL PRN PO POTASSIUM REPLACEMENT PROTOCOL; Start 10/02/18 at 11:30 Diagnostic Test (Pha) (Accu-Chek) 1 ea 02 XX Last administered on 10/07/18at 01:23; Admin Dose 1 EA; Start 10/03/18 at 02:00 Miscellaneous Information 1 ea NOTE XX ; Start 10/02/18 at 22:00 Glucose (Glutose) 15 gm Q15M PRN PO DECREASED GLUCOSE; Start 10/02/18 at 22:00 Glucose (Glutose) 22.5 gm Q15M PRN PO DECREASED GLUCOSE; Start 10/02/18 at 22:00 Dextrose (D50w Syringe) 25 ml Q15M PRN IV DECREASED GLUCOSE Last administered on 10/12/18at 20:44; Admin Dose 25 ML; Start 10/02/18 at 22:00 Dextrose (D50w Syringe) 50 ml Q15M PRN IV DECREASED GLUCOSE Last administered on 10/12/18 18:15; Admin Dose 50 ML; Start 10/02/18 at 22:00 Glucagon (Glucagen) 1 mg Q15M PRN IM DECREASED GLUCOSE; Start 10/02/18 at 22:00 Glucose (Glutose) 15 gm Q15M PRN BUCCAL DECREASED GLUCOSE; Start 10/02/18 at 22:00 Diagnostic Test (Pha) (Accu-Chek) 1 ea AC MEALS AND BEDTIME XX Last administered on 10/15/18at 17:09; Admin Dose 1 EA; Start 10/03/18 at 17:05 Calcium Carbonate (Tums) 500 mg Q4 PRN PO epigastric pain Last administered on 10/05/18at 01:34; Admin Dose 500 MG; Start 10/05/18 at 01:30 Pantoprazole (Protonix Tab) 40 mg DAILY@06 PO Last administered on 10/16/18 05:27; Admin Dose 40 MG; Start 10/06/18 at 06:00 Lactobacillus Acidophilus/ Rhamnosus (Culturelle) 1 cap BID PO Last administered on 10/15/18 20:14; Admin Dose 1 CAP; Start 10/08/18 at 21:00 Acetaminophen/ Hydrocodone Bitart ([place] (10/325)) 1 tab Q6H PRN PO SEVERE PAIN LEVEL 7-10 Last administered on 10/14/18 21:31; Admin Dose 1 TAB; Start 10/08/18 at 14:30 Nicotine (Nicoderm 14 Mg/ 24hr) 1 patch DAILY TRANSDERM Last administered on 10/15/18 09:49; Admin Dose 1 PATCH; Start 10/08/18 at 14:30 Loperamide HCl (Imodium Cap) 2 mg QID PRN PO DIARRHEA; Start 10/09/18 at 12:11 Atorvastatin Calcium (Lipitor) 20 mg QHS PO Last administered on 10/15/18 20:14; Admin Dose 20 MG; Start 10/15/18 at 21:00 Hydrocortisone (Anusol-Hc Supp) 25 mg TID PRN [place] HEMORROID PAIN/ITCHING; Start 10/09/18 at 13:30 Potassium Chloride (Potassium Chloride Pwd/Soln) 20 meq DAILY PO Last administered on 10/15/18 09:49; Admin Dose 20 MEQ; Start 10/09/18 at 13:30 Meropenem/Sodium Chloride 50 ml @ 100 mls/hr Q12 IVPB Last administered on 10/15/18 20:14; Admin Dose 100 MLS/HR; Start 10/10/18 at 21:00 Enoxaparin Sodium (Lovenox) 40 mg DAILY SC Last administered on 10/15/18 09:50; Admin Dose 40 MG; Start 10/14/18 at 09:00 Aspirin (Halfprin) 81 mg DAILY PO Last administered on 10/15/18 09:50; Admin Dose 81 MG; Start 10/14/18 at 14:00 Insulin Aspart (Novolog Insulin Pen) NOVOLOG *MODERATE* ALGORITHM WITH MEALS BEDTIME SC Last administered on 10/15/18 17:12; Admin Dose 2 UNIT; Start 10/13/18 at 08:00 Metoclopramide HCl (Reglan) 5 mg TID PO Last administered on 10/15/18 20:14; Admin Dose 5 MG; Start 10/13/18 at 13:00 Sucralfate (Carafate) 1 gm QID PO Last administered on 10/15/18 20:14; Admin Dose 1 GM; Start 10/13/18 at 13:00 Insulin Aspart (Novolog Insulin Pen) 5 unit WITH MEALS SC Last administered on 10/15/18 17:13; Admin Dose 5 UNIT; Start 10/13/18 at 18:00 Insulin Glargine (Lantus) 15 units DAILY@0800 SC Last administered on 10/15/18 07:54; Admin Dose 15 UNITS; Start 10/14/18 at 08:00 Lisinopril (Zestril) 10 mg DAILY PO Last administered on 10/15/18 09:50; Admin Dose 10 MG; Start 10/15/18 at 09:00 Vancomycin HCl (Vanco Iv Per Pharmacy) VANCOMYCIN PER PHARM... PER PROTOCOL XX ; Start 10/14/18 at 13:30 Vancomycin/Sodium Chloride 250 ml @ 125 mls/hr Q12H IVPB Last administered on 10/16/18 04:21; Admin Dose 125 MLS/HR; Start 10/15/18 at 04:00 Morphine Sulfate (morphine) 6 mg Q4H PRN PO SEVERE PAIN LEVEL 7-10; Start 10/15/18 at 15:30 HERRERA SALDAÑA NP Oct 16, 2018 05:43
[2018-10-16 08:00] VITALS: BP 162/72; PULSE 103; RESP 18
[2018-10-16] MEDS: MEROPENEM 1 GM/50ML(PMX) 50 ML IVPB SCH (08:12)
[2018-10-16] MEDS: POTASSIUM CHLORIDE 20 MEQ POWDER FOR ORAL SOLN PO SCH (08:12)
[2018-10-16] MEDS: SUCRALFATE 1 GM TAB PO SCH ×4 (08:13→20:59)
[2018-10-16] MEDS: GABAPENTIN 300 MG CAP PO SCH ×3 (08:13→20:59)
[2018-10-16] MEDS: ASPIRIN (EC) 81 MG TAB PO SCH (08:13)
[2018-10-16] MEDS: LISINOPRIL 10 MG TAB PO SCH (08:13)
[2018-10-16] MEDS: LACTOBACILLUS RHAMNOSUS CAP PO SCH ×2 (08:13→20:59)
[2018-10-16] MEDS: BUSPIRONE 5 MG TAB PO SCH ×2 (08:13→20:59)
[2018-10-16] MEDS: NICOTINE (14 MG/24 HR) PATCH TRANSDERM SCH (08:13)
[2018-10-16] MEDS: METOCLOPRAMIDE 5 MG TAB PO SCH ×3 (08:13→20:59)
[2018-10-16] MEDS: ENOXAPARIN 40 MG/0.4 ML SYG SC SCH (08:15)
[2018-10-16] MEDS: INSULIN ASPART [NOVOLOG] 3 ML PEN SC SCH ×9 (08:17→20:57)
[2018-10-16] MEDS: INSULIN GLARGINE [LANTus] (100 UNITS/ML) SYG SC SCH (08:18)
[2018-10-16] MEDS: CALCIUM CARBONATE 500 MG CHEW TAB PO PRN (11:32)
--- NOTE | 2018-10-16 11:46 | CONS ---
Assessment/Plan Assessment/Plan Hospital Course (Demo Recall) #Anemia -pt has a low iron saturation in the setting of a high ferritin and low TIBC. This is most consistent with anemia of chronic inflammation as well as a component of iron deficiency. no w/p 10 days of IV iron -EGD and coloscopy did not reveal evidence of active GI bleed although colon prep was suboptimal -there does not seem to be evidence of hemolysis given the elevated haptoglobin -will check Hb electrophoresis to rule out thalassemia -check SPEP to rule out monoclonal gammopathy -check epo level to see if patient would benefit from procrit #elevated Alk phos -bone scan ordered -pt was noted to have liver abscesses before but these have been drained #DM -continue insulin per primary team #Bipolar -continue mood stabilizers -continue mood stabilizers Consultation Date/Type/Reason Admit Date/Time Oct 02, 2018 at 00:05 Initial Consult Date 10/04/18 Type of Consult Hematology Reason for Consultation anemia Requesting Provider: HERRERA SALDAÑA NP Date/Time of Note DATE: 10/16/18 TIME: 11:40 24 HR Interval Summary Free Text/Dictation pt had colonoscopy done but the prep was suboptimal Exam/Review of Systems Exam Vitals Vital Signs Date Temp Pulse Resp B/P (MAP) Pulse Ox O2 O2 Flow FiO2 Time Delivery Rate 10/16/18 98.4 103 18 162/72 97 08:00 (102) 10/15/18 Room Air 14:14 Intake and Output 10/15/18 10/15/18 10/16/18 1515:00 23:00 07:00 IntakeIntake Total 160 ml 300 ml 250 ml OutputOutput Total 820 ml BalanceBalance 160 ml 300 ml -570 ml Constitutional: alert, oriented Psych: anxiety, depression Head: normocephalic Eyes: nl conjunctiva ENMT: nl external ears & nose Neck: supple Respiratory: clear to auscultation Cardiovascular: regular rate and rhythm Gastrointestinal: soft Musculoskeletal: nl extremities to inspection Extremities: normal pulses Results Result Diagram: 10/16/18 0332 10/16/18 0332 Results 24hrs Laboratory Tests Test 10/15/18 12:26 10/15/18 16:07 10/15/18 16:20 10/15/18 17:08 Bedside Glucose 232 H 113 144 Red Blood Count (Send 3.10 L Out) Hemoglobin (Send Out) 7.2 L Hematocrit (Send Out) 22.9 L Hemoglobinopathy MCV 73.9 L Hemoglobinopathy MCH 23.2 L Hemoglobinopathy RDW 14.9 Erythropoietin Pending Total Protein (PEP) 5.4 L Albumin (PEP) Pending [id number] Pending [id number] Pending Beta Globulins Pending Gamma Globulins Pending Protein Pending Electrophoresis Inter pret Test 10/15/18 20:13 10/16/18 01:13 10/16/18 02:07 10/16/18 03:32 Bedside Glucose 89 134 166 White Blood Count 10.3 Red Blood Count 3.19 L Hemoglobin 7.4 L Hematocrit 24.1 L Mean Corpuscular 75.5 L Volume Mean Corpuscular 23.2 L Hemoglobin Mean Corpuscular 30.7 L Hemoglobin Concent Red Cell Distribution 15.3 H Width Platelet Count 513 H Mean Platelet Volume 9.2 Immature Granulocytes 1.300 H % Neutrophils % 73.8 Lymphocytes % 14.3 L Monocytes % 9.4 Eosinophils % 0.6 Basophils % 0.6 Nucleated Red Blood 0.0 Cells % Immature Granulocytes 0.130 H # Neutrophils # 7.6 H Lymphocytes # 1.5 Monocytes # 1.0 H Eosinophils # 0.1 Basophils # 0.1 Nucleated Red Blood 0.0 Cells # Sodium Level 135 Potassium Level 4.4 Chloride Level 100 Carbon Dioxide Level 30 Anion Gap 5 Blood Urea Nitrogen 17 Creatinine 0.54 L Est Glomerular > 60 Filtrat Rate mL/min Glucose Level 168 # Calcium Level 8.1 L Phosphorus Level 2.6 Magnesium Level 2.0 Total Bilirubin 0.0 L Direct Bilirubin 0.00 Indirect Bilirubin 0.0 Aspartate Amino 36 Transf (AST/SGOT) Alanine 33 Aminotransferase (ALT /SGPT) Alkaline Phosphatase 1408 H B-Type Natriuretic 2940 H Peptide Total Protein 6.0 L Albumin 2.6 L Globulin 3.40 H Albumin/Globulin 0.76 Ratio Vancomycin Level 5.9 L Trough Test 10/16/18 08:10 10/16/18 11:28 10/16/18 11:34 Bedside Glucose 250 H 246 H Lab Scanned Report REFERENCE LAB Medications Medication Current Medications Buspirone HCl (Buspar) 5 mg BID PO Last administered on 10/16/18at 08:13; Admin Dose 5 MG; Start 10/02/18 at 09:00 Gabapentin (Neurontin) 300 mg TID PO Last administered on 10/16/18 08:13; Admin Dose 300 MG; Start 10/02/18 at 09:00 Ondansetron HCl (Zofran Inj) 4 mg Q6H PRN IV NAUSEA AND/OR VOMITING; Start 10/02/18 at 02:00 Albuterol (Proventil 0.083% (Neb)) 2.5 mg Q2H RESP THERAPY PRN NEB SHORTNESS OF BREATH; Start 10/02/18 at 02:00 Acetaminophen (Tylenol Liquid) 650 mg Q6H PRN PO PAIN LEVEL 1-3 OR FEVER Last administered on 10/14/18 07:57; Admin Dose 650 MG; Start 10/02/18 at 02:00 Menthol/Methyl Salicylate (Memo Erazo) 1 applic TID PRN TOP pain; Start 10/02/18 at 06:30 Tramadol HCl (Ultram) 50 mg Q6H PRN PO MODERATE PAIN LEVEL 4-6 Last administered on 10/08/18 08:04; Admin Dose 50 MG; Start 10/02/18 at 11:00 Potassium Chloride 50 ml @ 50 mls/hr K PROTOCOL PRN IVPB PENDING LAB VALUE Last administered on 10/03/18at 09:55; Admin Dose 50 MLS/HR; Start 10/02/18 at 11:30 Potassium Chloride (Potassium Chloride Pwd/Soln) 20 meq PER PROTOCOL PRN PO POTASSIUM REPLACEMENT PROTOCOL; Start 10/02/18 at 11:30 Potassium Chloride (Potassium Chloride Pwd/Soln) 30 meq PER PROTOCOL PRN PO POTASSIUM REPLACEMENT PROTOCOL; Start 10/02/18 at 11:30 Potassium Chloride (Potassium Chloride Pwd/Soln) 40 meq PER PROTOCOL PRN PO POTASSIUM REPLACEMENT PROTOCOL; Start 10/02/18 at 11:30 Diagnostic Test (Pha) (Accu-Chek) 1 ea 02 XX Last administered on 10/07/18at 01:23; Admin Dose 1 EA; Start 10/03/18 at 02:00 Miscellaneous Information 1 ea NOTE XX ; Start 10/02/18 at 22:00 Glucose (Glutose) 15 gm Q15M PRN PO DECREASED GLUCOSE; Start 10/02/18 at 22:00 Glucose (Glutose) 22.5 gm Q15M PRN PO DECREASED GLUCOSE; Start 10/02/18 at 22:00 Dextrose (D50w Syringe) 25 ml Q15M PRN IV DECREASED GLUCOSE Last administered on 10/12/18 20:44; Admin Dose 25 ML; Start 10/02/18 at 22:00 Dextrose (D50w Syringe) 50 ml Q15M PRN IV DECREASED GLUCOSE Last administered on 10/12/18 18:15; Admin Dose 50 ML; Start 10/02/18 at 22:00 Glucagon (Glucagen) 1 mg Q15M PRN IM DECREASED GLUCOSE; Start 10/02/18 at 22:00 Glucose (Glutose) 15 gm Q15M PRN BUCCAL DECREASED GLUCOSE; Start 10/02/18 at 22:00 Diagnostic Test (Pha) (Accu-Chek) 1 ea AC MEALS AND BEDTIME XX Last administered on 10/15/18 17:09; Admin Dose 1 EA; Start 10/03/18 at 17:05 Calcium Carbonate (Tums) 500 mg Q4 PRN PO epigastric pain Last administered on 10/05/18 01:34; Admin Dose 500 MG; Start 10/05/18 at 01:30 Pantoprazole (Protonix Tab) 40 mg DAILY@06 PO Last administered on 10/16/18 05:27; Admin Dose 40 MG; Start 10/06/18 at 06:00 Lactobacillus Acidophilus/ Rhamnosus (Culturelle) 1 cap BID PO Last administered on 10/16/18 08:13; Admin Dose 1 CAP; Start 10/08/18 at 21:00 Acetaminophen/ Hydrocodone Bitart ([place] (10/325)) 1 tab Q6H PRN PO SEVERE PAIN LEVEL 7-10 Last administered on 10/14/18 21:31; Admin Dose 1 TAB; Start 10/08/18 at 14:30 Nicotine (Nicoderm 14 Mg/ 24hr) 1 patch DAILY TRANSDERM Last administered on 10/16/18 08:13; Admin Dose 1 PATCH; Start 10/08/18 at 14:30 Loperamide HCl (Imodium Cap) 2 mg QID PRN PO DIARRHEA; Start 10/09/18 at 12:11 Atorvastatin Calcium (Lipitor) 20 mg QHS PO Last administered on 10/15/18 20:14; Admin Dose 20 MG; Start 10/15/18 at 21:00 Hydrocortisone (Anusol-Hc Supp) 25 mg TID PRN [place] HEMORROID PAIN/ITCHING; Start 10/09/18 at 13:30 Potassium Chloride (Potassium Chloride Pwd/Soln) 20 meq DAILY PO Last administered on 10/16/18 08:12; Admin Dose 20 MEQ; Start 10/09/18 at 13:30 Meropenem/Sodium Chloride 50 ml @ 100 mls/hr Q12 IVPB Last administered on 10/16/18 08:12; Admin Dose 100 MLS/HR; Start 10/10/18 at 21:00 Enoxaparin Sodium (Lovenox) 40 mg DAILY SC Last administered on 10/16/18 08:15; Admin Dose 40 MG; Start 10/14/18 at 09:00 Aspirin (Halfprin) 81 mg DAILY PO Last administered on 10/16/18 08:13; Admin Dose 81 MG; Start 10/14/18 at 14:00 Insulin Aspart (Novolog Insulin Pen) NOVOLOG *MODERATE* ALGORITHM WITH MEALS BEDTIME SC Last administered on 10/16/18 08:17; Admin Dose 6 UNIT; Start 10/13/18 at 08:00 Metoclopramide HCl (Reglan) 5 mg TID PO Last administered on 10/16/18 08:13; Admin Dose 5 MG; Start 10/13/18 at 13:00 Sucralfate (Carafate) 1 gm QID PO Last administered on 10/16/18 08:13; Admin Dose 1 GM; Start 10/13/18 at 13:00 Insulin Aspart (Novolog Insulin Pen) 5 unit WITH MEALS SC Last administered on 10/16/18 08:18; Admin Dose 5 UNIT; Start 10/13/18 at 18:00 Insulin Glargine (Lantus) 15 units DAILY@0800 SC Last administered on 10/16/18 08:18; Admin Dose 15 UNITS; Start 10/14/18 at 08:00 Lisinopril (Zestril) 10 mg DAILY PO Last administered on 10/16/18 08:13; Admin Dose 10 MG; Start 10/15/18 at 09:00 Vancomycin HCl (Vanco Iv Per Pharmacy) VANCOMYCIN PER PHARM... PER PROTOCOL XX ; Start 10/14/18 at 13:30 Morphine Sulfate (morphine) 6 mg Q4H PRN PO SEVERE PAIN LEVEL 7-10; Start 10/15/18 at 15:30 Vancomycin/Sodium Chloride 250 ml @ 125 mls/hr Q8H IVPB ; Start 10/16/18 at 12:00 MAYA CASTILLO M.D. Oct 16, 2018 11:46
[2018-10-16] MEDS ORDERED: FUROSEMIDE 20 MG INJ IV ONE (12:00)
--- NOTE | 2018-10-16 12:22 | CONS ---
Assessment/Plan Assessment/Plan Hospital Course (Demo Recall) no events, looks comfortable, no fevers Microbiology: Abdominal fluid culture grew Klebsiella pneumonia, blood and urine culture remain negative Chest x-ray 10/13/18 revealed multifocal pneumonia Antimicrobials: Vancomycin, meropenem Physical examination: Well-developed elderly -Citizen Of [place] man in no distress. Head atraumatic normocephalic neck is supple chest rise symmetrical breath sounds diminished bases heart S1-S2 abdomen obese soft bowel sounds present extremities without cyanosis Assessment: 1. Sepsis 2. Liver abscess status post CT-guided drainage 3. Healthcare associated pneumonia 4. Diabetes, poorly controlled 5. Hypertension 6. Bipolar disorder and homelessness 7. Diarrhea, C. difficile negative Plan: Clinically stable, continue abx, consider repeat CT abdomen Consultation Date/Type/Reason Admit Date/Time Oct 02, 2018 at 00:05 Initial Consult Date 10/04/18 Type of Consult id Requesting Provider: HERRERA SALDAÑA NP Date/Time of Note DATE: 10/16/18 TIME: 12:21 Exam/Review of Systems Exam Vitals Vital Signs Date Temp Pulse Resp B/P (MAP) Pulse Ox O2 O2 Flow FiO2 Time Delivery Rate 10/16/18 98.4 103 18 162/72 97 08:00 (102) 10/15/18 Room Air 14:14 Intake and Output 10/15/18 10/15/18 10/16/18 1515:00 23:00 07:00 IntakeIntake Total 160 ml 300 ml 250 ml OutputOutput Total 820 ml BalanceBalance 160 ml 300 ml -570 ml Results Result Diagram: 10/16/18 0332 10/16/18 0332 Results 24hrs Laboratory Tests Test 10/15/18 12:26 10/15/18 16:07 10/15/18 16:20 10/15/18 17:08 Bedside Glucose 232 H 113 144 Red Blood Count (Send 3.10 L Out) Hemoglobin (Send Out) 7.2 L Hematocrit (Send Out) 22.9 L Hemoglobinopathy MCV 73.9 L Hemoglobinopathy MCH 23.2 L Hemoglobinopathy RDW 14.9 Erythropoietin Pending Total Protein (PEP) 5.4 L Albumin (PEP) Pending [id number] Pending [id number] Pending Beta Globulins Pending Gamma Globulins Pending Protein Pending Electrophoresis Inter pret Test 10/15/18 20:13 10/16/18 01:13 10/16/18 02:07 10/16/18 03:32 Bedside Glucose 89 134 166 White Blood Count 10.3 Red Blood Count 3.19 L Hemoglobin 7.4 L Hematocrit 24.1 L Mean Corpuscular 75.5 L Volume Mean Corpuscular 23.2 L Hemoglobin Mean Corpuscular 30.7 L Hemoglobin Concent Red Cell Distribution 15.3 H Width Platelet Count 513 H Mean Platelet Volume 9.2 Immature Granulocytes 1.300 H % Neutrophils % 73.8 Lymphocytes % 14.3 L Monocytes % 9.4 Eosinophils % 0.6 Basophils % 0.6 Nucleated Red Blood 0.0 Cells % Immature Granulocytes 0.130 H # Neutrophils # 7.6 H Lymphocytes # 1.5 Monocytes # 1.0 H Eosinophils # 0.1 Basophils # 0.1 Nucleated Red Blood 0.0 Cells # Sodium Level 135 Potassium Level 4.4 Chloride Level 100 Carbon Dioxide Level 30 Anion Gap 5 Blood Urea Nitrogen 17 Creatinine 0.54 L Est Glomerular > 60 Filtrat Rate mL/min Glucose Level 168 # Calcium Level 8.1 L Phosphorus Level 2.6 Magnesium Level 2.0 Total Bilirubin 0.0 L Direct Bilirubin 0.00 Indirect Bilirubin 0.0 Aspartate Amino 36 Transf (AST/SGOT) Alanine 33 Aminotransferase (ALT /SGPT) Alkaline Phosphatase 1408 H B-Type Natriuretic 2940 H Peptide Total Protein 6.0 L Albumin 2.6 L Globulin 3.40 H Albumin/Globulin 0.76 Ratio Vancomycin Level 5.9 L Trough Test 10/16/18 08:10 10/16/18 11:28 10/16/18 11:34 Bedside Glucose 250 H 246 H Lab Scanned Report REFERENCE LAB Medications Medication Current Medications Buspirone HCl (Buspar) 5 mg BID PO Last administered on 10/16/18at 08:13; Admin Dose 5 MG; Start 10/02/18 at 09:00 Gabapentin (Neurontin) 300 mg TID PO Last administered on 10/16/18at 11:51; Admin Dose 300 MG; Start 10/02/18 at 09:00 Ondansetron HCl (Zofran Inj) 4 mg Q6H PRN IV NAUSEA AND/OR VOMITING; Start 10/02/18 at 02:00 Albuterol (Proventil 0.083% (Neb)) 2.5 mg Q2H RESP THERAPY PRN NEB SHORTNESS OF BREATH; Start 10/02/18 at 02:00 Acetaminophen (Tylenol Liquid) 650 mg Q6H PRN PO PAIN LEVEL 1-3 OR FEVER Last administered on 10/14/18 07:57; Admin Dose 650 MG; Start 10/02/18 at 02:00 Menthol/Methyl Salicylate (Memo Erazo) 1 applic TID PRN TOP pain; Start 10/02/18 at 06:30 Tramadol HCl (Ultram) 50 mg Q6H PRN PO MODERATE PAIN LEVEL 4-6 Last administered on 10/08/18 08:04; Admin Dose 50 MG; Start 10/02/18 at 11:00 Potassium Chloride 50 ml @ 50 mls/hr K PROTOCOL PRN IVPB PENDING LAB VALUE Last administered on 10/03/18 09:55; Admin Dose 50 MLS/HR; Start 10/02/18 at 11:30 Potassium Chloride (Potassium Chloride Pwd/Soln) 20 meq PER PROTOCOL PRN PO POTASSIUM REPLACEMENT PROTOCOL; Start 10/02/18 at 11:30 Potassium Chloride (Potassium Chloride Pwd/Soln) 30 meq PER PROTOCOL PRN PO POTASSIUM REPLACEMENT PROTOCOL; Start 10/02/18 at 11:30 Potassium Chloride (Potassium Chloride Pwd/Soln) 40 meq PER PROTOCOL PRN PO POTASSIUM REPLACEMENT PROTOCOL; Start 10/02/18 at 11:30 Diagnostic Test (Pha) (Accu-Chek) 1 ea 02 XX Last administered on 10/07/18 01:23; Admin Dose 1 EA; Start 10/03/18 at 02:00 Miscellaneous Information 1 ea NOTE XX ; Start 10/02/18 at 22:00 Glucose (Glutose) 15 gm Q15M PRN PO DECREASED GLUCOSE; Start 10/02/18 at 22:00 Glucose (Glutose) 22.5 gm Q15M PRN PO DECREASED GLUCOSE; Start 10/02/18 at 22:00 Dextrose (D50w Syringe) 25 ml Q15M PRN IV DECREASED GLUCOSE Last administered on 10/12/18 20:44; Admin Dose 25 ML; Start 10/02/18 at 22:00 Dextrose (D50w Syringe) 50 ml Q15M PRN IV DECREASED GLUCOSE Last administered on 10/12/18 18:15; Admin Dose 50 ML; Start 10/02/18 at 22:00 Glucagon (Glucagen) 1 mg Q15M PRN IM DECREASED GLUCOSE; Start 10/02/18 at 22:00 Glucose (Glutose) 15 gm Q15M PRN BUCCAL DECREASED GLUCOSE; Start 10/02/18 at 22:00 Diagnostic Test (Pha) (Accu-Chek) 1 ea AC MEALS AND BEDTIME XX Last administered on 10/15/18 17:09; Admin Dose 1 EA; Start 10/03/18 at 17:05 Calcium Carbonate (Tums) 500 mg Q4 PRN PO epigastric pain Last administered on 10/16/18 11:32; Admin Dose 500 MG; Start 10/05/18 at 01:30 Pantoprazole (Protonix Tab) 40 mg DAILY@06 PO Last administered on 10/16/18 05:27; Admin Dose 40 MG; Start 10/06/18 at 06:00 Lactobacillus Acidophilus/ Rhamnosus (Culturelle) 1 cap BID PO Last administered on 10/16/18 08:13; Admin Dose 1 CAP; Start 10/08/18 at 21:00 Acetaminophen/ Hydrocodone Bitart (Coral (10/325)) 1 tab Q6H PRN PO SEVERE PAIN LEVEL 7-10 Last administered on 10/14/18 21:31; Admin Dose 1 TAB; Start 10/08/18 at 14:30 Nicotine (Nicoderm 14 Mg/ 24hr) 1 patch DAILY TRANSDERM Last administered on 10/16/18 08:13; Admin Dose 1 PATCH; Start 10/08/18 at 14:30 Loperamide HCl (Imodium Cap) 2 mg QID PRN PO DIARRHEA; Start 10/09/18 at 12:11 Atorvastatin Calcium (Lipitor) 20 mg QHS PO Last administered on 10/15/18 20:14; Admin Dose 20 MG; Start 10/15/18 at 21:00 Hydrocortisone (Anusol-Hc Supp) 25 mg TID PRN [place] HEMORROID PAIN/ITCHING; Start 10/09/18 at 13:30 Potassium Chloride (Potassium Chloride Pwd/Soln) 20 meq DAILY PO Last administered on 10/16/18 08:12; Admin Dose 20 MEQ; Start 10/09/18 at 13:30 Meropenem/Sodium Chloride 50 ml @ 100 mls/hr Q12 IVPB Last administered on 10/16/18 08:12; Admin Dose 100 MLS/HR; Start 10/10/18 at 21:00 Enoxaparin Sodium (Lovenox) 40 mg DAILY SC Last administered on 10/16/18 08:15; Admin Dose 40 MG; Start 10/14/18 at 09:00 Aspirin (Halfprin) 81 mg DAILY PO Last administered on 10/16/18 08:13; Admin Dose 81 MG; Start 10/14/18 at 14:00 Insulin Aspart (Novolog Insulin Pen) NOVOLOG *MODERATE* ALGORITHM WITH MEALS BEDTIME SC Last administered on 10/16/18 11:45; Admin Dose 6 UNIT; Start 10/13/18 at 08:00 Metoclopramide HCl (Reglan) 5 mg TID PO Last administered on 10/16/18 11:51; Admin Dose 5 MG; Start 10/13/18 at 13:00 Sucralfate (Carafate) 1 gm QID PO Last administered on 10/16/18 11:51; Admin Dose 1 GM; Start 10/13/18 at 13:00 Insulin Aspart (Novolog Insulin Pen) 5 unit WITH MEALS SC Last administered on 10/16/18 11:47; Admin Dose 5 UNIT; Start 10/13/18 at 18:00 Insulin Glargine (Lantus) 15 units DAILY@0800 SC Last administered on 10/16/18 08:18; Admin Dose 15 UNITS; Start 10/14/18 at 08:00 Lisinopril (Zestril) 10 mg DAILY PO Last administered on 10/16/18 08:13; Admin Dose 10 MG; Start 10/15/18 at 09:00 Vancomycin HCl (Vanco Iv Per Pharmacy) VANCOMYCIN PER PHARM... PER PROTOCOL XX ; Start 10/14/18 at 13:30 Morphine Sulfate (morphine) 6 mg Q4H PRN PO SEVERE PAIN LEVEL 7-10; Start 10/15/18 at 15:30 Vancomycin/Sodium Chloride 250 ml @ 125 mls/hr Q8H IVPB ; Start 10/16/18 at 12:00 AURORA ARZOLA NP Oct 16, 2018 12:22
[2018-10-16] MEDS ORDERED: [UNRECOGNIZED DRUG - REMARK] (12:44)
[2018-10-16] MEDS: traMADol 50 MG TAB PO PRN (13:07)
[2018-10-16] MEDS ORDERED: SOD CHLORIDE 0.9% 100 ML ONE (13:20)
[2018-10-16] MEDS ORDERED: IOHEXOL 350MG/ML 50 ML BTL ONE (13:20)
[2018-10-16] MEDS ORDERED: IOHEXOL 100 ML ONE (13:20)
--- NOTE | 2018-10-16 15:22 | CONS ---
Assessment/Plan Assessment/Plan Hospital Course 63 M c/ DM 2, bipolar d/o, and other comorbidities, who is admitted to [facility] for evaluation of a multitude of complaints. He reports sudden R eye vision loss on 10/13, for which neurology is consulted.. 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 A primary ophthalmologic process remains a consideration.. It is possible, too, that his vision loss is progressive rather than sudden...and perhaps attributable to poorly controlled DM 2... CUS is without significant stenosis.. Echo reveals EF of 40-45% but is otherwise unrevealing. LDL 81 UDS + amphetamines... RPR neg ESR 50 P: Continue asa/low dose lipitor daily for secondary stroke prevention Other management per primary Consultation Date/Type/Reason Admit Date/Time Oct 02, 2018 at 00:05 Type of Consult Neurology Reason for Consultation acute R eye blindness Requesting Provider: HERRERA SALDAÑA NP Date/Time of Note DATE: 10/16/18 TIME: 15:22 24 HR Interval Summary Free Text/Dictation Continue acute care Exam Vital Signs Vitals Vital Signs Date Temp Pulse Resp B/P (MAP) Pulse Ox O2 O2 Flow FiO2 Time Delivery Rate 10/16/18 98.4 103 18 162/72 97 08:00 (102) 10/15/18 Room Air 14:14 Intake and Output 10/15/18 10/15/18 10/16/18 1515:00 23:00 07:00 IntakeIntake Total 160 ml 300 ml 250 ml OutputOutput Total 820 ml BalanceBalance 160 ml 300 ml -570 ml Exam PE: Gen Appearance: No Apparent Distress HEENT: Normocephalic; wearing glasses Cardiovascular: Regular rate Abdomen: Soft Extremities: Dry NE: The patient was alert and oriented. Language was normal. Fund of knowledge was normal. Pupils were reactive to light. There was no afferent pupillary defect. Visual iraheta were diminished b/l. Funduscopic examination was limited. Extra-ocular movements were full. Ptosis was absent. There was no nystagmus. Facial sensation was normal. Face was symmetric with normal strength. Hearing was intact. Palate movements were normal. Neck strength was normal. There was normal tongue bulk and speed of movement. Tone was normal. Muscle bulk was normal. I did not see fasciculations. Arms and legs were strong. Vibration sensation was normal. Temperature and pinprick sensation was normal. Rapid alternating movements were normal. There was no dysmetria. There was no intention tremor. Gait was deferred due to bedrest. Arm and leg reflexes were symmetric. Houser's sign was absent. Plantar responses were flexor. GURMEET SUMMERS NP Oct 16, 2018 15:22 NOLAN CALZADA Oct 16, 2018 15:59
--- NOTE | 2018-10-16 17:00 | CONS ---
Date/Time of Note Date/Time of Note DATE: 10/16/18 TIME: 16:55 Consult Date/Type/Reason Admit Date Oct 02, 2018 at 00:05 Type of Consult Psych Ordering Provider: HERRERA SALDAÑA NP Subjective Patient is 63 year old male with underlying medical history of DM, detached retina and cataracts, HTN, hyperlipidemia, drug abuse, and homelessness. On a [id number] evaluation, patient is very manipulative, he is very needy, hyperverbal,he calls for the nurse constantly, patient is difficult to redirect, he has poor impulse control poor coping skills he is also acuusing staff of lack of care. very argumentative. Objective Patient Appearance: Disheveled Mood and Affect Description: Anxious Mood or Affect: Angry Thought Process: Circumstantial Hallucination Type: None Delusion Description: Not Present Assessment/Plan Recommendations Buspar, 10mg BID, Paxil 20mg Daily ANAYA ANTONIO NP Oct 16, 2018 17:00
[2018-10-16 19:50] VITALS: BP 121/63; PULSE 108; RESP 20
[2018-10-16] MEDS: ATORVASTATIN 20 MG TAB PO SCH (20:59)
[2018-10-16] MEDS ORDERED: BUSPIRONE 10 MG TAB PO SCH (21:00)
[2018-10-16] MEDS ORDERED: BUSPIRONE 5 MG TAB PO SCH (21:00)
[2018-10-17] MEDS: MEROPENEM 1 GM/50ML(PMX) 50 ML IVPB SCH ×3 (01:39→21:20)
[2018-10-17] MEDS: ACCU-CHEK XX SCH ×5 (01:39→21:00)
[2018-10-17 01:42] VITALS: BP 118/77; PULSE 104; RESP 20
[2018-10-17] MEDS: VANCOMYCIN 750 MG (PMX) 250 ML IVPB SCH ×2 (04:41→11:53)
[2018-10-17] MEDS: PANTOPRAZOLE (EC) 40 MG TAB PO SCH (05:10)
[2018-10-17 07:40] VITALS: BP 140/82; PULSE 99; RESP 18
[2018-10-17] MEDS: POTASSIUM CHLORIDE 20 MEQ POWDER FOR ORAL SOLN PO SCH (08:20)
[2018-10-17] MEDS: LACTOBACILLUS RHAMNOSUS CAP PO SCH ×2 (08:21→21:13)
[2018-10-17] MEDS: HYDROCODONE/APAP (10/325) TAB PO PRN ×3 (08:21→21:14)
[2018-10-17] MEDS: SUCRALFATE 1 GM TAB PO SCH ×4 (08:21→21:13)
[2018-10-17] MEDS: BUSPIRONE 5 MG TAB PO SCH ×2 (08:21→21:12)
[2018-10-17] MEDS: LISINOPRIL 10 MG TAB PO SCH (08:21)
[2018-10-17] MEDS: GABAPENTIN 300 MG CAP PO SCH ×3 (08:21→21:13)
[2018-10-17] MEDS: PAROXETINE 20 MG TAB PO SCH (08:22)
[2018-10-17] MEDS: METOCLOPRAMIDE 5 MG TAB PO SCH ×3 (08:22→21:13)
[2018-10-17] MEDS: ASPIRIN (EC) 81 MG TAB PO SCH (08:22)
[2018-10-17] MEDS: ENOXAPARIN 40 MG/0.4 ML SYG SC SCH (08:22)
[2018-10-17] MEDS: INSULIN GLARGINE [LANTus] (100 UNITS/ML) SYG SC SCH (08:24)
[2018-10-17] MEDS: INSULIN ASPART [NOVOLOG] 3 ML PEN SC SCH ×7 (08:27→21:00)
[2018-10-17] MEDS: NICOTINE (14 MG/24 HR) PATCH TRANSDERM SCH (08:29)
--- NOTE | 2018-10-17 11:28 | CONS ---
Assessment/Plan Assessment/Plan Hospital Course (Demo Recall) All noted, no events over night Microbiology: Abdominal fluid culture grew Klebsiella pneumonia, blood and urine culture remain negative CT abdomen 10/16/18: Complex cystic areas within the liver compatible with abscesses, with the largest within the anterior segment of the right lobe measuring 4.1 x 4.8 cm. Bilateral moderate pleural effusions with underlying atelectasis/consolidations. Moderately distended stomach. Moderate retained stool within the colon. Markedly distended bladder with mild wall thickening suggestive of cystitis. Clinically correlate. Diffuse intra-abdominal stranding and mild free fluid. Antimicrobials: Vancomycin, meropenem Physical examination: Well-developed elderly -[place] man in no distress. Head atraumatic normocephalic neck is supple chest rise symmetrical breath sounds diminished bases heart S1-S2 abdomen obese soft bowel sounds present extremities without cyanosis Assessment: 1. Sepsis 2. Liver abscesses ==> ongoing 3. Healthcare associated pneumonia 4. Diabetes, poorly controlled 5. Hypertension 6. Bipolar disorder and homelessness 7. Poss retention/cystitis 8. Constipation Plan: Clinically stable, continue abx, consider repeat IR drainage ?surgical eval Consultation Date/Type/Reason Admit Date/Time Oct 02, 2018 at 00:05 Initial Consult Date 10/04/18 Type of Consult id Requesting Provider: HERRERA SALDAÑA NP Date/Time of Note DATE: 10/17/18 TIME: 11:25 Exam/Review of Systems Exam Vitals Vital Signs Date Temp Pulse Resp B/P (MAP) Pulse Ox O2 O2 Flow FiO2 Time Delivery Rate 10/17/18 98.1 99 18 140/82 95 Room Air 07:40 (101) Intake and Output 10/16/18 10/16/18 10/17/18 1515:00 23:00 07:00 IntakeIntake Total 1570 ml 640 ml 550 ml OutputOutput Total 650 ml 1800 ml BalanceBalance 920 ml 640 ml -1250 ml Results Result Diagram: 10/17/18 0815 10/17/18 0815 Results 24hrs Laboratory Tests Test 10/16/18 11:28 10/16/18 11:34 10/16/18 17:11 10/16/18 20:56 Lab Scanned Report REFERENCE LAB Bedside Glucose 246 H 137 140 Test 10/17/18 08:04 10/17/18 08:15 Bedside Glucose 390 H White Blood Count 11.1 H Red Blood Count 3.44 L Hemoglobin 7.7 L Hematocrit 25.7 L Mean Corpuscular 74.7 L Volume Mean Corpuscular 22.4 L Hemoglobin Mean Corpuscular 30.0 L Hemoglobin Concent Red Cell Distribution 15.9 H Width Platelet Count 656 #H Mean Platelet Volume 9.9 Immature Granulocytes 0.900 H % Neutrophils % 74.8 Lymphocytes % 14.2 L Monocytes % 8.9 Eosinophils % 0.7 Basophils % 0.5 Nucleated Red Blood 0.0 Cells % Immature Granulocytes 0.100 H # Neutrophils # 8.3 H Lymphocytes # 1.6 Monocytes # 1.0 H Eosinophils # 0.1 Basophils # 0.1 Nucleated Red Blood 0.0 Cells # Sodium Level 135 Potassium Level 4.1 Chloride Level 96 L Carbon Dioxide Level 34 H Anion Gap 5 Blood Urea Nitrogen 17 Creatinine 0.55 L Est Glomerular > 60 Filtrat Rate mL/min Glucose Level 346 #H Calcium Level 8.3 L Phosphorus Level 3.1 Magnesium Level 1.9 Medications Medication Current Medications Gabapentin (Neurontin) 300 mg TID PO Last administered on 10/17/18 08:21; Admin Dose 300 MG; Start 10/02/18 at 09:00 Ondansetron HCl (Zofran Inj) 4 mg Q6H PRN IV NAUSEA AND/OR VOMITING; Start 10/02/18 at 02:00 Albuterol (Proventil 0.083% (Neb)) 2.5 mg Q2H RESP THERAPY PRN NEB SHORTNESS OF BREATH; Start 10/02/18 at 02:00 Acetaminophen (Tylenol Liquid) 650 mg Q6H PRN PO PAIN LEVEL 1-3 OR FEVER Last administered on 10/14/18 07:57; Admin Dose 650 MG; Start 10/02/18 at 02:00 Menthol/Methyl Salicylate (Memo Erazo) 1 applic TID PRN TOP pain; Start 10/02/18 at 06:30 Tramadol HCl (Ultram) 50 mg Q6H PRN PO MODERATE PAIN LEVEL 4-6 Last administ ered on 10/16/18 13:07; Admin Dose 50 MG; Start 10/02/18 at 11:00 Potassium Chloride 50 ml @ 50 mls/hr K PROTOCOL PRN IVPB PENDING LAB VALUE Last administered on 10/03/18 09:55; Admin Dose 50 MLS/HR; Start 10/02/18 at 11:30 Potassium Chloride (Potassium Chloride Pwd/Soln) 20 meq PER PROTOCOL PRN PO POTASSIUM REPLACEMENT PROTOCOL; Start 10/02/18 at 11:30 Potassium Chloride (Potassium Chloride Pwd/Soln) 30 meq PER PROTOCOL PRN PO POTASSIUM REPLACEMENT PROTOCOL; Start 10/02/18 at 11:30 Potassium Chloride (Potassium Chloride Pwd/Soln) 40 meq PER PROTOCOL PRN PO POTASSIUM REPLACEMENT PROTOCOL; Start 10/02/18 at 11:30 Diagnostic Test (Pha) (Accu-Chek) 1 ea 02 XX Last administered on 10/07/18at 01 :23; Admin Dose 1 EA; Start 10/03/18 at 02:00 Miscellaneous Information 1 ea NOTE XX ; Start 10/02/18 at 22:00 Glucose (Glutose) 15 gm Q15M PRN PO DECREASED GLUCOSE; Start 10/02/18 at 22:00 Glucose (Glutose) 22.5 gm Q15M PRN PO DECREASED GLUCOSE; Start 10/02/18 at 22:00 Dextrose (D50w Syringe) 25 ml Q15M PRN IV DECREASED GLUCOSE Last administered on 10/12/18at 20:44; Admin Dose 25 ML; Start 10/02/18 at 22:00 Dextrose (D50w Syringe) 50 ml Q15M PRN IV DECREASED GLUCOSE Last administered on 10/12/18at 18:15; Admin Dose 50 ML; Start 10/02/18 at 22:00 Glucagon (Glucagen) 1 mg Q15M PRN IM DECREASED GLUCOSE; Start 10/02/18 at 22:00 Glucose (Glutose) 15 gm Q15M PRN BUCCAL DECREASED GLUCOSE; Start 10/02/18 at 22:00 Diagnostic Test (Pha) (Accu-Chek) 1 ea AC MEALS AND BEDTIME XX Last administered on 10/17/18at 07:00; Admin Dose 1 EA; Start 10/03/18 at 17:05 Calcium Carbonate (Tums) 500 mg Q4 PRN PO epigastric pain Last administered on 10/16/18 11:32; Admin Dose 500 MG; Start 10/05/18 at 01:30 Pantoprazole (Protonix Tab) 40 mg DAILY@06 PO Last administered on 10/17/18 05:10; Admin Dose 40 MG; Start 10/06/18 at 06:00 Lactobacillus Acidophilus/ Rhamnosus (Culturelle) 1 cap BID PO Last admin istered on 10/17/18 08:21; Admin Dose 1 CAP; Start 10/08/18 at 21:00 Acetaminophen/ Hydrocodone Bitart ([place] (10/325)) 1 tab Q6H PRN PO SEVERE PAIN LEVEL 7-10 Last administered on 10/17/18 08:21; Admin Dose 1 TAB; Start 10/08/18 at 14:30 Nicotine (Nicoderm 14 Mg/ 24hr) 1 patch DAILY TRANSDERM Last administered on 10/17/18 08:29; Admin Dose 1 PATCH; Start 10/08/18 at 14:30 Loperamide HCl (Imodium Cap) 2 mg QID PRN PO DIARRHEA; Start 10/09/18 at 12:11 Atorvastatin Calcium (Lipitor) 20 mg QHS PO Last administered on 10/16/18 20:59; Admin Dose 20 MG; Start 10/15/18 at 21:00 Hydrocortisone (Anusol-Hc Supp) 25 mg TID PRN [place] HEMORROID PAIN/ITCHING; Start 10/09/18 at 13:30 Potassium Chloride (Potassium Chloride Pwd/Soln) 20 meq DAILY PO Last administered on 10/17/18 08:20; Admin Dose 20 MEQ; Start 10/09/18 at 13:30 Meropenem/Sodium Chloride 50 ml @ 100 mls/hr Q12 IVPB Last administered on 10/17/18 08:20; Admin Dose 100 MLS/HR; Start 10/10/18 at 21:00 Enoxaparin Sodium (Lovenox) 40 mg DAILY SC Last administered on 10/17/18 08:22; Admin Dose 40 MG; Start 10/14/18 at 09:00 Aspirin (Halfprin) 81 mg DAILY PO Last administered on 10/17/18 08:22; Admin Dose 81 MG; Start 10/14/18 at 14:00 Insulin Aspart (Novolog Insulin Pen) NOVOLOG *MODERATE* ALGORITHM WITH MEALS BEDTIME SC Last administered on 10/17/18 08:27; Admin Dose 12 UNIT; Start 10/13/18 at 08:00 Metoclopramide HCl (Reglan) 5 mg TID PO Last administered on 10/17/18 08:22; Admin Dose 5 MG; Start 10/13/18 at 13:00 Sucralfate (Carafate) 1 gm QID PO Last administered on 10/17/18 08:21; Admin Dose 1 GM; Start 10/13/18 at 13:00 Insulin Aspart (Novolog Insulin Pen) 5 unit WITH MEALS SC Last administered on 10/17/18 08:28; Admin Dose 5 UNIT; Start 10/13/18 at 18:00 Insulin Glargine (Lantus) 15 units DAILY@0800 SC Last administered on 10/17/18 08:24; Admin Dose 15 UNITS; Start 10/14/18 at 08:00 Lisinopril (Zestril) 10 mg DAILY PO Last administered on 10/17/18 08:21; Admin Dose 10 MG; Start 10/15/18 at 09:00 Vancomycin HCl (Vanco Iv Per Pharmacy) VANCOMYCIN PER PHARM... PER PROTOCOL XX ; Start 10/14/18 at 13:30 Morphine Sulfate (morphine) 6 mg Q4H PRN PO SEVERE PAIN LEVEL 7-10; Start 10/15/18 at 15:30 Vancomycin/Sodium Chloride 250 ml @ 125 mls/hr Q8H IVPB Last administered on 10/17/18 04:41; Admin Dose 125 MLS/HR; Start 10/16/18 at 12:00 Paroxetine HCl (Paxil) 20 mg DAILY PO Last administered on 10/17/18 08:22; Ad min Dose 20 MG; Start 10/17/18 at 09:00 Buspirone HCl (Buspar) 10 mg BID PO Last administered on 10/17/18 08:21; Admin Dose 10 MG; Start 10/16/18 at 21:00 AURORA ARZOLA NP Oct 17, 2018 11:28
--- NOTE | 2018-10-17 13:13 | CONS ---
Assessment/Plan Assessment/Plan Hospital Course 63 M c/ DM 2, bipolar d/o, and other comorbidities, who is admitted to [facility] for evaluation of a multitude of complaints. He reports sudden R eye vision loss on 10/13, for which neurology is consulted.. 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 A primary ophthalmologic process remains a consideration.. It is possible, too, that his vision loss is progressive rather than sudden...and perhaps attributable to poorly controlled DM 2... CUS is without significant stenosis.. Echo reveals EF of 40-45% but is otherwise unrevealing. LDL 81 UDS + amphetamines... RPR neg ESR 50 P: Continue asa/low dose lipitor daily for secondary stroke prevention Other management per primary Will sign off for now; please call w ?s Consultation Date/Type/Reason Admit Date/Time Oct 02, 2018 at 00:05 Type of Consult Neurology Reason for Consultation acute R eye blindness Requesting Provider: HERRERA SALDAÑA NP Date/Time of Note DATE: 10/17/18 TIME: 13:13 24 HR Interval Summary Free Text/Dictation Continues acute care Exam Vital Signs Vitals Vital Signs Date Temp Pulse Resp B/P (MAP) Pulse Ox O2 O2 Flow FiO2 Time Delivery Rate 10/17/18 98.1 99 18 140/82 95 Room Air 07:40 (101) Intake and Output 10/16/18 10/16/18 10/17/18 1515:00 23:00 07:00 IntakeIntake Total 1570 ml 640 ml 550 ml OutputOutput Total 650 ml 1800 ml BalanceBalance 920 ml 640 ml -1250 ml Exam PE: Gen Appearance: No Apparent Distress HEENT: Normocephalic; wearing glasses Cardiovascular: Regular rate Abdomen: Soft Extremities: Dry NE: The patient was alert and oriented. Language was normal. Fund of knowledge was normal. Pupils were reactive to light. There was no afferent pupillary defect. Visual iraheta were diminished b/l. Funduscopic examination was limited. Extra-ocular movements were full. Ptosis was absent. There was no nystagmus. Facial sensation was normal. Face was symmetric with normal strength. Hearing was intact. Palate movements were normal. Neck strength was normal. There was normal tongue bulk and speed of movement. Tone was normal. Muscle bulk was normal. I did not see fasciculations. Arms and legs were strong. Vibration sensation was normal. Temperature and pinprick sensation was normal. Rapid alternating movements were normal. There was no dysmetria. There was no intention tremor. Gait was deferred due to bedrest. Arm and leg reflexes were symmetric. Houser's sign was absent. Plantar responses were flexor. GURMEET SUMMERS NP Oct 17, 2018 13:13 NOLAN CALZADA Oct 17, 2018 13:18
--- NOTE | 2018-10-17 13:29 | PN ---
Date/Time of Note Date/Time of Note DATE: 10/17/18 TIME: 13:27 Assessment/Plan VTE Prophylaxis Risk score (from Ns)>0 risk: 2 SCD applied (from [facility] [place], [place]): No SCD contraindicated: patient refusal Pharmacological prophylaxis: NA/contraindicated Pharm contraindication: anticoag not tolerated Lines/Catheters IV C[facility]ter Type (from [facility]): Peripheral IV Urinary Cath still in place: No Assessment/Plan Hospital Course SUBJECTIVE: Continues to ask for food. OBJECTIVE: Physical Exam General: Adequately build 62 year-old male lying in bed in no apparent distress. HEENT: Normocephalic, atraumatic. Eyes: Anicteric sclerae, conjunctivae clear. ENT: Nasal septum midline, oral mucosa moist. Neck supple, no JVD noticed. Respiratory: Bilaterally clear breath sounds. No use of accessory muscles of respiration. No adventitious breath sounds. Cardiovascular: S1, S2 heard. Regular rate and rhythm. Abdomen: Soft, nontender, and nondistended. Bowel sounds positive in all 4 quadrants. Genitourinary: Deferred. Extremities: No cyanosis, no clubbing, no edema. Peripheral pulses palpable. Neurologic: The patient is awake, alert, and oriented. Vitals & Labs per chart. ASSESSMENT & PLAN 63-year-old male with past medical history of diabetes mellitus, bipolar disorder, chronic back pain, and homelessness who came to the emergency room with multiple complaints. The patient was noticed to have underlying hyperglycemia. The patient did not have any evidence of DKA. The patient was admitted to inpatient setting for further treatment and evaluation. 1. -Hyperglycemia. -S/P insulin drip. -No evidence of any DKA. -Continue sliding scale insulin along with pre-meal insulin basal insulin. 2. Diabetes mellitus. -Uncontrolled. -Hemoglobin A1C >14. -Continue SSI along with pre-meal insulin and basal insulin. 3. Bipolar disorder. -Continue mood stabilizers. 4. Hyponatremia. -Etiology could be multifactorial including underlying hyperglycemia. -Correct hyperglycemia. -Resolved. 5. Essential hypertension. -Continue antihypertensives. 6. Dyslipidemia. -Continue statins. 7. Transaminitis. -Etiology unclear. -Hepatitis panel negative. 8. Anemia. -Microcytic and hypochromic. -Stool OB X1 positive. Repeat stool for OB negative. -Elevated LDH with CBC from admission showing nucleated RBC, concerning for hemolytic anemia. Obtain hematology consult. -Patient was noncompliant with status post hematology bowel preparation. -Status post hematology evaluation who conveyed that the patient's anemia is secondary to underlying iron deficiency. 9. Liver abscess. -Status post CT-guided aspiration on 10/09/2018. -Fluid culture showing Klebsiella pneumoniae. -Continue antimicrobials as per ID. 10. Cardiomyopathy. -Ejection fraction 40-45%. -Continue KRYSTYNA inhibitors. -Add beta-blockers if tolerated. 11. Subacute/late subacute lacunar infarct. -Continue aspirin and statins. 12. Homelessness. 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 13. Severe protein calorie malnutrition. -Dietary consult. -Dietary supplements. 14. Non-compliance with medications and diet. -Reinforced importance of compliance. 15. Bilateral infiltrates on chest x-ray. -Fluid versus pneumonia. -Continue antimicrobials. -Spot diuretics. 16. Fluids, electrolytes, and nutrition. -Carbohydrate controlled diet. 17. DVT prophylaxis. -SQ Lovenox. -Held because of worsening anemia. 18. Plan. -Continue antimicrobials as per ID. -Continue iron supplements. -Repeat abdominal CT with liver protocol showing multiple abscesses. -Order IR guided drainage. The patient was seen in collaboration with Dr. Arriaga. Result Diagram: 10/17/18 0815 10/17/18 0815 Results 24hrs Laboratory Tests Test 10/16/18 17:11 10/16/18 20:56 10/17/18 08:04 10/17/18 08:15 Bedside Glucose 137 140 390 H White Blood Count 11.1 H Red Blood Count 3.44 L Hemoglobin 7.7 L Hematocrit 25.7 L Mean Corpuscular Volume 74.7 L Mean Corpuscular 22.4 L Hemoglobin Mean Corpuscular 30.0 L Hemoglobin Concent Red Cell Distribution 15.9 H Width Platelet Count 656 #H Mean Platelet Volume 9.9 Immature Granulocytes % 0.900 H Neutrophils % 74.8 Lymphocytes % 14.2 L Monocytes % 8.9 Eosinophils % 0.7 Basophils % 0.5 Nucleated Red Blood 0.0 Cells % Immature Granulocytes # 0.100 H Neutrophils # 8.3 H Lymphocytes # 1.6 Monocytes # 1.0 H Eosinophils # 0.1 Basophils # 0.1 Nucleated Red Blood 0.0 Cells # Sodium Level 135 Potassium Level 4.1 Chloride Level 96 L Carbon Dioxide Level 34 H Anion Gap 5 Blood Urea Nitrogen 17 Creatinine 0.55 L Est Glomerular Filtrat > 60 Rate mL/min Glucose Level 346 #H Calcium Level 8.3 L Phosphorus Level 3.1 Magnesium Level 1.9 Test 10/17/18 11:13 10/17/18 11:45 Vancomycin Level Trough 10.5 Bedside Glucose 289 H Exam/Review of Systems Exam Vitals Vital Signs Date Temp Pulse Resp B/P (MAP) Pulse Ox O2 O2 Flow FiO2 Time Delivery Rate 10/17/18 98.1 99 18 140/82 95 Room Air 07:40 (101) Intake and Output 10/16/18 10/16/18 10/17/18 1515:00 23:00 07:00 IntakeIntake Total 1570 ml 640 ml 550 ml OutputOutput Total 650 ml 1800 ml BalanceBalance 920 ml 640 ml -1250 ml Results Results 24hrs Laboratory Tests Test 10/16/18 17:11 10/16/18 20:56 10/17/18 08:04 10/17/18 08:15 Bedside Glucose 137 140 390 H White Blood Count 11.1 H Red Blood Count 3.44 L Hemoglobin 7.7 L Hematocrit 25.7 L Mean Corpuscular Volume 74.7 L Mean Corpuscular 22.4 L Hemoglobin Mean Corpuscular 30.0 L Hemoglobin Concent Red Cell Distribution 15.9 H Width Platelet Count 656 #H Mean Platelet Volume 9.9 Immature Granulocytes % 0.900 H Neutrophils % 74.8 Lymphocytes % 14.2 L Monocytes % 8.9 Eosinophils % 0.7 Basophils % 0.5 Nucleated Red Blood 0.0 Cells % Immature Granulocytes # 0.100 H Neutrophils # 8.3 H Lymphocytes # 1.6 Monocytes # 1.0 H Eosinophils # 0.1 Basophils # 0.1 Nucleated Red Blood 0.0 Cells # Sodium Level 135 Potassium Level 4.1 Chloride Level 96 L Carbon Dioxide Level 34 H Anion Gap 5 Blood Urea Nitrogen 17 Creatinine 0.55 L Est Glomerular Filtrat > 60 Rate mL/min Glucose Level 346 #H Calcium Level 8.3 L Phosphorus Level 3.1 Magnesium Level 1.9 Test 10/17/18 11:13 10/17/18 11:45 Vancomycin Level Trough 10.5 Bedside Glucose 289 H Medications Medication Current Medications Gabapentin (Neurontin) 300 mg TID PO Last administered on 10/17/18at 12:00; Admin Dose 300 MG; Start 10/02/18 at 09:00 Ondansetron HCl (Zofran Inj) 4 mg Q6H PRN IV NAUSEA AND/OR VOMITING; Start 10/02/18 at 02:00 Albuterol (Proventil 0.083% (Neb)) 2.5 mg Q2H RESP THERAPY PRN NEB SHORTNESS OF BREATH; Start 10/02/18 at 02:00 Acetaminophen (Tylenol Liquid) 650 mg Q6H PRN PO PAIN LEVEL 1-3 OR FEVER Last administered on 10/14/18 07:57; Admin Dose 650 MG; Start 10/02/18 at 02:00 Menthol/Methyl Salicylate (Memo Erazo) 1 applic TID PRN TOP pain; Start 10/02/18 at 06:30 Tramadol HCl (Ultram) 50 mg Q6H PRN PO MODERATE PAIN LEVEL 4-6 Last administered on 10/16/18 13:07; Admin Dose 50 MG; Start 10/02/18 at 11:00 Potassium Chloride 50 ml @ 50 mls/hr K PROTOCOL PRN IVPB PENDING LAB VALUE Last administered on 10/03/18 09:55; Admin Dose 50 MLS/HR; Start 10/02/18 at 11:30 Potassium Chloride (Potassium Chloride Pwd/Soln) 20 meq PER PROTOCOL PRN PO POTASSIUM REPLACEMENT PROTOCOL; Start 10/02/18 at 11:30 Potassium Chloride (Potassium Chloride Pwd/Soln) 30 meq PER PROTOCOL PRN PO POTASSIUM REPLACEMENT PROTOCOL; Start 10/02/18 at 11:30 Potassium Chloride (Potassium Chloride Pwd/Soln) 40 meq PER PROTOCOL PRN PO POTASSIUM REPLACEMENT PROTOCOL; Start 10/02/18 at 11:30 Diagnostic Test (Pha) (Accu-Chek) 1 ea 02 XX Last administered on 10/07/18at 01:23; Admin Dose 1 EA; Start 10/03/18 at 02:00 Miscellaneous Information 1 ea NOTE XX ; Start 10/02/18 at 22:00 Glucose (Glutose) 15 gm Q15M PRN PO DECREASED GLUCOSE; Start 10/02/18 at 22:00 Glucose (Glutose) 22.5 gm Q15M PRN PO DECREASED GLUCOSE; Start 10/02/18 at 22:00 Dextrose (D50w Syringe) 25 ml Q15M PRN IV DECREASED GLUCOSE Last administered on 10/12/18at 20:44; Admin Dose 25 ML; Start 10/02/18 at 22:00 Dextrose (D50w Syringe) 50 ml Q15M PRN IV DECREASED GLUCOSE Last administered on 10/12/18 18:15; Admin Dose 50 ML; Start 10/02/18 at 22:00 Glucagon (Glucagen) 1 mg Q15M PRN IM DECREASED GLUCOSE; Start 10/02/18 at 22:00 Glucose (Glutose) 15 gm Q15M PRN BUCCAL DECREASED GLUCOSE; Start 10/02/18 at 22:00 Diagnostic Test (Pha) (Accu-Chek) 1 ea AC MEALS AND BEDTIME XX Last administered on 10/17/18 11:48; Admin Dose 1 EA; Start 10/03/18 at 17:05 Calcium Carbonate (Tums) 500 mg Q4 PRN PO epigastric pain Last administered on 10/16/18 11:32; Admin Dose 500 MG; Start 10/05/18 at 01:30 Pantoprazole (Protonix Tab) 40 mg DAILY@06 PO Last administered on 10/17/18 05:10; Admin Dose 40 MG; Start 10/06/18 at 06:00 Lactobacillus Acidophilus/ Rhamnosus (Culturelle) 1 cap BID PO Last administered on 10/17/18 08:21; Admin Dose 1 CAP; Start 10/08/18 at 21:00 Acetaminophen/ Hydrocodone Bitart ([place] (10/325)) 1 tab Q6H PRN PO SEVERE PAIN LEVEL 7-10 Last administered on 10/17/18 08:21; Admin Dose 1 TAB; Start 10/08/18 at 14:30 Nicotine (Nicoderm 14 Mg/ 24hr) 1 patch DAILY TRANSDERM Last administered on 10/17/18 08:29; Admin Dose 1 PATCH; Start 10/08/18 at 14:30 Loperamide HCl (Imodium Cap) 2 mg QID PRN PO DIARRHEA; Start 10/09/18 at 12:11 Atorvastatin Calcium (Lipitor) 20 mg QHS PO Last administered on 10/16/18 20:59; Admin Dose 20 MG; Start 10/15/18 at 21:00 Hydrocortisone (Anusol-Hc Supp) 25 mg TID PRN [place] HEMORROID PAIN/ITCHING; Start 10/09/18 at 13:30 Potassium Chloride (Potassium Chloride Pwd/Soln) 20 meq DAILY PO Last administered on 10/17/18 08:20; Admin Dose 20 MEQ; Start 10/09/18 at 13:30 Meropenem/Sodium Chloride 50 ml @ 100 mls/hr Q12 IVPB Last administered on 10/17/18 08:20; Admin Dose 100 MLS/HR; Start 10/10/18 at 21:00 Enoxaparin Sodium (Lovenox) 40 mg DAILY SC Last administered on 10/17/18 08:22; Admin Dose 40 MG; Start 10/14/18 at 09:00 Aspirin (Halfprin) 81 mg DAILY PO Last administered on 10/17/18 08:22; Admin Dose 81 MG; Start 10/14/18 at 14:00 Insulin Aspart (Novolog Insulin Pen) NOVOLOG *MODERATE* ALGORITHM WITH MEALS BEDTIME SC Last administered on 10/17/18 11:52; Admin Dose 8 UNIT; Start 10/13/18 at 08:00 Metoclopramide HCl (Reglan) 5 mg TID PO Last administered on 10/17/18 12:00; Admin Dose 5 MG; Start 10/13/18 at 13:00 Sucralfate (Carafate) 1 gm QID PO Last administered on 10/17/18 12:00; Admin Dose 1 GM; Start 10/13/18 at 13:00 Insulin Aspart (Novolog Insulin Pen) 5 unit WITH MEALS SC Last administered on 10/17/18 11:52; Admin Dose 5 UNIT; Start 10/13/18 at 18:00 Insulin Glargine (Lantus) 15 units DAILY@0800 SC Last administered on 10/17/18 08:24; Admin Dose 15 UNITS; Start 10/14/18 at 08:00 Lisinopril (Zestril) 10 mg DAILY PO Last administered on 10/17/18 08:21; Admin Dose 10 MG; Start 10/15/18 at 09:00 Vancomycin HCl (Vanco Iv Per Pharmacy) VANCOMYCIN PER PHARM... PER PROTOCOL XX ; Start 10/14/18 at 13:30 Morphine Sulfate (morphine) 6 mg Q4H PRN PO SEVERE PAIN LEVEL 7-10; Start 10/15/18 at 15:30 Paroxetine HCl (Paxil) 20 mg DAILY PO Last administered on 3/6/19at 08:22; Admin Dose 20 MG; Start 10/17/18 at 09:00 Buspirone HCl (Buspar) 10 mg BID PO Last administered on 10/17/18at 08:21; Admin Dose 10 MG; Start 10/16/18 at 21:00 Vancomycin HCl 250 ml @ 125 mls/hr Q8H IVPB ; Start 10/17/18 at 20:00 Furosemide (Lasix) 20 mg DAILY IV ; Start 10/17/18 at 13:30; Status UNV HERRERA SALDAÑA NP Oct 17, 2018 13:29
[2018-10-17] MEDS: FUROSEMIDE 20 MG INJ IV SCH (14:23)
[2018-10-17 14:35] VITALS: BP_DIAS 76; PULSE 101; RESP 16
[2018-10-17] MEDS: VANCOMYCIN 1 GM 250 ML IVPB SCH (19:42)
[2018-10-17 20:00] VITALS: BP 130/81; PULSE 105; RESP 17
[2018-10-17] MEDS: ATORVASTATIN 20 MG TAB PO SCH (21:13)
[2018-10-18 02:00] VITALS: BP 139/81; PULSE 93; RESP 17
[2018-10-18] MEDS: ACCU-CHEK XX SCH ×5 (02:00→20:38)
[2018-10-18] MEDS: VANCOMYCIN 1 GM 250 ML IVPB SCH (03:49)
[2018-10-18] MEDS: PANTOPRAZOLE (EC) 40 MG TAB PO SCH (06:17)
[2018-10-18 07:51] VITALS: BP 152/95; PULSE 104; RESP 18
[2018-10-18] MEDS: NICOTINE (14 MG/24 HR) PATCH TRANSDERM SCH (08:48)
[2018-10-18] MEDS: INSULIN GLARGINE [LANTus] (100 UNITS/ML) SYG SC SCH (08:49)
--- NOTE | 2018-10-18 08:50 | RADRPT ---
Vent Rate: 111 bpm RR Interval: 0 msec ID Interval: 134 msec QRS Duration: 74 msec QT Interval: 346 msec QTC Interval: 470 msec P-R-T [place]: 60 - 53 - 71 degrees Sinus tachycardia Otherwise normal ECG Electronically Signed By: Francis Wilcox
[2018-10-18] MEDS: INSULIN ASPART [NOVOLOG] 3 ML PEN SC SCH ×7 (08:51→20:17)
[2018-10-18] MEDS: LISINOPRIL 10 MG TAB PO SCH (08:52)
[2018-10-18] MEDS: SUCRALFATE 1 GM TAB PO SCH ×4 (08:52→20:13)
[2018-10-18] MEDS: FUROSEMIDE 20 MG INJ IV SCH (08:52)
[2018-10-18] MEDS: LACTOBACILLUS RHAMNOSUS CAP PO SCH ×2 (08:52→20:13)
[2018-10-18] MEDS: GABAPENTIN 300 MG CAP PO SCH ×3 (08:52→20:13)
[2018-10-18] MEDS: BUSPIRONE 5 MG TAB PO SCH ×2 (08:52→20:13)
[2018-10-18] MEDS: ASPIRIN (EC) 81 MG TAB PO SCH (08:52)
[2018-10-18] MEDS: ENOXAPARIN 40 MG/0.4 ML SYG SC SCH (08:52)
[2018-10-18] MEDS: PAROXETINE 20 MG TAB PO SCH (08:52)
[2018-10-18] MEDS: HYDROCODONE/APAP (10/325) TAB PO PRN ×3 (08:53→21:27)
[2018-10-18] MEDS: METOCLOPRAMIDE 5 MG TAB PO SCH ×3 (08:53→20:13)
[2018-10-18] MEDS: MEROPENEM 1 GM/50ML(PMX) 50 ML IVPB SCH (08:54)
[2018-10-18] MEDS: POTASSIUM CHLORIDE 20 MEQ POWDER FOR ORAL SOLN PO SCH (08:59)
--- NOTE | 2018-10-18 11:22 | CONS ---
Assessment/Plan Assessment/Plan Hospital Course (Demo Recall) All noted, no events over night, no fevers Microbiology: Abdominal fluid culture grew Klebsiella pneumonia, blood and urine culture remain negative CT abdomen 10/16/18: Complex cystic areas within the liver compatible with abscesses, with the largest within the anterior segment of the right lobe measuring 4.1 x 4.8 cm. Bilateral moderate pleural effusions with underlying atelectasis/consolidations. Moderately distended stomach. Moderate retained stool within the colon. Markedly distended bladder with mild wall thickening suggestive of cystitis. Clinically correlate. Diffuse intra-abdominal stranding and mild free fluid. Antimicrobials: Vancomycin, meropenem Physical examination: Well-developed elderly -[place] man in no distress. Head atraumatic normocephalic neck is supple chest rise symmetrical breath sounds diminished bases heart S1-S2 abdomen obese soft bowel sounds present extremities without cyanosis Assessment: 1. S/p sepsis 2. Liver abscesses ==> ongoing 3. S/p healthcare associated pneumonia 4. Diabetes, poorly controlled 5. Hypertension 6. Bipolar disorder and homelessness 7. Poss retention/cystitis 8. Constipation Plan: Clinically stable, pending IR drainage, will change abx to Flagyl/Cipro Consultation Date/Type/Reason Admit Date/Time Oct 02, 2018 at 00:05 Initial Consult Date 10/04/18 Type of Consult id Requesting Provider: HERRERA SALDAÑA NP Date/Time of Note DATE: 10/18/18 TIME: 11:21 Exam/Review of Systems Exam Vitals Vital Signs Date Temp Pulse Resp B/P (MAP) Pulse Ox O2 O2 Flow FiO2 Time Delivery Rate 10/18/18 104 18 152/95 97 Room Air 07:51 (114) 10/18/18 98.1 02:00 Intake and Output 10/17/18 10/17/18 10/18/18 1515:00 23:00 07:00 IntakeIntake Total 50 ml 1750 ml OutputOutput Total 1800 ml 1600 ml BalanceBalance 50 ml -50 ml -1600 ml Results Result Diagram: 10/18/18 0553 10/18/18 0553 Results 24hrs Laboratory Tests Test 10/17/18 11:45 10/17/18 17:02 10/17/18 18:34 10/17/18 21:12 Bedside Glucose 289 H 150 73 106 Test 10/18/18 05:53 10/18/18 08:44 White Blood Count 12.5 H Red Blood Count 3.52 L Hemoglobin 8.0 L Hematocrit 26.8 L Mean Corpuscular Volume 76.1 L Mean Corpuscular 22.7 L Hemoglobin Mean Corpuscular 29.9 L Hemoglobin Concent Red Cell Distribution 15.4 H Width Platelet Count 636 H Mean Platelet Volume 9.1 Immature Granulocytes % 1.400 H Neutrophils % 75.4 Lymphocytes % 14.4 L Monocytes % 7.6 Eosinophils % 0.7 Basophils % 0.5 Nucleated Red Blood 0.0 Cells % Immature Granulocytes # 0.180 H Neutrophils # 9.4 H Lymphocytes # 1.8 Monocytes # 1.0 H Eosinophils # 0.1 Basophils # 0.1 Nucleated Red Blood 0.0 Cells # Sodium Level 134 L Potassium Level 4.3 Chloride Level 96 L Carbon Dioxide Level 33 H Anion Gap 5 Blood Urea Nitrogen 17 Creatinine 0.39 L Est Glomerular Filtrat > 60 Rate mL/min Glucose Level 215 # Calcium Level 8.4 Phosphorus Level 3.3 Magnesium Level 1.9 Bedside Glucose 341 H Medications Medication Current Medications Gabapentin (Neurontin) 300 mg TID PO Last administered on 10/18/18 08:52; Admin Dose 300 MG; Start 10/02/18 at 09:00 Ondansetron HCl (Zofran Inj) 4 mg Q6H PRN IV NAUSEA AND/OR VOMITING; Start 10/02/18 at 02:00 Albuterol (Proventil 0.083% (Neb)) 2.5 mg Q2H RESP THERAPY PRN NEB SHORTNESS OF BREATH; Start 10/02/18 at 02:00 Acetaminophen (Tylenol Liquid) 650 mg Q6H PRN PO PAIN LEVEL 1-3 OR FEVER Last administered on 10/14/18 07:57; Admin Dose 650 MG; Start 10/02/18 at 02:00 Menthol/Methyl Salicylate (Memo Erazo) 1 applic TID PRN TOP pain; Start 10/02/18 at 06:30 Tramadol HCl (Ultram) 50 mg Q6H PRN PO MODERATE PAIN LEVEL 4-6 Last administered on 10/16/18 13:07; Admin Dose 50 MG; Start 10/02/18 at 11:00 Potassium Chloride 50 ml @ 50 mls/hr K PROTOCOL PRN IVPB PENDING LAB VALUE Last administered on 2/20/19at 09:55; Admin Dose 50 MLS/HR; Start 10/02/18 at 11:30 Potassium Chloride (Potassium Chloride Pwd/Soln) 20 meq PER PROTOCOL PRN PO POTASSIUM REPLACEMENT PROTOCOL; Start 10/02/18 at 11:30 Potassium Chloride (Potassium Chloride Pwd/Soln) 30 meq PER PROTOCOL PRN PO POTASSIUM REPLACEMENT PROTOCOL; Start 10/02/18 at 11:30 Potassium Chloride (Potassium Chloride Pwd/Soln) 40 meq PER PROTOCOL PRN PO POTASSIUM REPLACEMENT PROTOCOL; Start 10/02/18 at 11:30 Diagnostic Test (Pha) (Accu-Chek) 1 ea 02 XX Last administered on 10/07/18 01:23; Admin Dose 1 EA; Start 10/03/18 at 02:00 Miscellaneous Information 1 ea NOTE XX ; Start 10/02/18 at 22:00 Glucose (Glutose) 15 gm Q15M PRN PO DECREASED GLUCOSE; Start 10/02/18 at 22:00 Glucose (Glutose) 22.5 gm Q15M PRN PO DECREASED GLUCOSE; Start 10/02/18 at 22:00 Dextrose (D50w Syringe) 25 ml Q15M PRN IV DECREASED GLUCOSE Last administered on 10/12/18 20:44; Admin Dose 25 ML; Start 10/02/18 at 22:00 Dextrose (D50w Syringe) 50 ml Q15M PRN IV DECREASED GLUCOSE Last administered on 10/12/18 18:15; Admin Dose 50 ML; Start 10/02/18 at 22:00 Glucagon (Glucagen) 1 mg Q15M PRN IM DECREASED GLUCOSE; Start 10/02/18 at 22:00 Glucose (Glutose) 15 gm Q15M PRN BUCCAL DECREASED GLUCOSE; Start 10/02/18 at 22:00 Diagnostic Test (Pha) (Accu-Chek) 1 ea AC MEALS AND BEDTIME XX Last administered on 10/17/18 17:03; Admin Dose 1 EA; Start 10/03/18 at 17:05 Calcium Carbonate (Tums) 500 mg Q4 PRN PO epigastric pain Last administered on 10/16/18 11:32; Admin Dose 500 MG; Start 10/05/18 at 01:30 Pantoprazole (Protonix Tab) 40 mg DAILY@06 PO Last administered on 10/18/18 06:17; Admin Dose 40 MG; Start 10/06/18 at 06:00 Lactobacillus Acidophilus/ Rhamnosus (Culturelle) 1 cap BID PO Last administere d on 10/18/18 08:52; Admin Dose 1 CAP; Start 10/08/18 at 21:00 Acetaminophen/ Hydrocodone Bitart ([place] (10/325)) 1 tab Q6H PRN PO SEVERE PAIN LEVEL 7-10 Last administered on 10/18/18 08:53; Admin Dose 1 TAB; Start 10/08/18 at 14:30 Nicotine (Nicoderm 14 Mg/ 24hr) 1 patch DAILY TRANSDERM Last administered on 10/18/18 08:48; Admin Dose 1 PATCH; Start 10/08/18 at 14:30 Loperamide HCl (Imodium Cap) 2 mg QID PRN PO DIARRHEA; Start 10/09/18 at 12:11 Atorvastatin Calcium (Lipitor) 20 mg QHS PO Last administered on 10/17/18 21:13; Admin Dose 20 MG; Start 10/15/18 at 21:00 Hydrocortisone (Anusol-Hc Supp) 25 mg TID PRN [place] HEMORROID PAIN/ITCHING; Start 10/09/18 at 13:30 Potassium Chloride (Potassium Chloride Pwd/Soln) 20 meq DAILY PO Last administered on 10/18/18 08:59; Admin Dose 20 MEQ; Start 10/09/18 at 13:30 Meropenem/Sodium Chloride 50 ml @ 100 mls/hr Q12 IVPB Last administered on 10/18/18 08:54; Admin Dose 100 MLS/HR; Start 10/10/18 at 21:00 Enoxaparin Sodium (Lovenox) 40 mg DAILY SC Last administered on 10/18/18 08:52; Admin Dose 40 MG; Start 10/14/18 at 09:00 Aspirin (Halfprin) 81 mg DAILY PO Last administered on 10/18/18 08:52; Admin Dose 81 MG; Start 10/14/18 at 14:00 Insulin Aspart (Novolog Insulin Pen) NOVOLOG *MODERATE* ALGORITHM WITH MEALS BEDTIME SC Last administered on 10/18/18 08:51; Admin Dose 10 UNIT; Start 10/13/18 at 08:00 Metoclopramide HCl (Reglan) 5 mg TID PO Last administered on 10/18/18 08:53; Admin Dose 5 MG; Start 10/13/18 at 13:00 Sucralfate (Carafate) 1 gm QID PO Last administered on 10/18/18 08:52; Admin Dose 1 GM; Start 10/13/18 at 13:00 Insulin Aspart (Novolog Insulin Pen) 5 unit WITH MEALS SC Last administered on 10/18/18 08:51; Admin Dose 5 UNIT; Start 10/13/18 at 18:00 Insulin Glargine (Lantus) 15 units DAILY@0800 SC Last administered on 10/18/18 08:49; Admin Dose 15 UNITS; Start 10/14/18 at 08:00 Lisinopril (Zestril) 10 mg DAILY PO Last administered on 10/18/18 08:52; Admin Dose 10 MG; Start 10/15/18 at 09:00 Vancomycin HCl (Vanco Iv Per Pharmacy) VANCOMYCIN PER PHARM... PER PROTOCOL XX ; Start 10/14/18 at 13:30 Morphine Sulfate (morphine) 6 mg Q4H PRN PO SEVERE PAIN LEVEL 7-10; Start 10/15/18 at 15:30 Paroxetine HCl (Paxil) 20 mg DAILY PO Last administered on 10/18/18 08:52; Admin Dose 20 MG; Start 10/17/18 at 09:00 Buspirone HCl (Buspar) 10 mg BID PO Last administered on 10/18/18 08:52; Admin Dose 10 MG; Start 10/16/18 at 21:00 Vancomycin HCl 250 ml @ 125 mls/hr Q8H IVPB Last administered on 10/18/18 03:49; Admin Dose 125 MLS/HR; Start 10/17/18 at 20:00 Furosemide (Lasix) 20 mg DAILY IV Last administered on 10/18/18 08:52; Admin Dose 20 MG; Start 10/17/18 at 13:30 AURORA ARZOLA NP Oct 18, 2018 11:22
[2018-10-18] MEDS ORDERED: CEFTRIAXONE 1 GM/50 ML (PMX) 50 ML IVPB SCH (11:30)
--- NOTE | 2018-10-18 12:12 | PN ---
Date/Time of Note Date/Time of Note DATE: 10/18/18 TIME: 12:12 Assessment/Plan VTE Prophylaxis Risk score (from Ns)>0 risk: 3 SCD applied (from [facility] [place]): No SCD contraindicated: patient refusal Pharmacological prophylaxis: NA/contraindicated Pharm contraindication: anticoag not tolerated Lines/Catheters IV Catheter Type (from [facility]): Saline Lock Urinary Cath still in place: No Assessment/Plan Hospital Course SUBJECTIVE: Continues to ask for food. OBJECTIVE: Physical Exam General: Adequately build 62 year-old male lying in bed in no apparent distress. HEENT: Normocephalic, atraumatic. Eyes: Anicteric sclerae, conjunctivae clear. ENT: Nasal septum midline, oral mucosa moist. Neck supple, no JVD noticed. Respiratory: Bilaterally clear breath sounds. No use of accessory muscles of respiration. No adventitious breath sounds. Cardiovascular: S1, S2 heard. Regular rate and rhythm. Abdomen: Soft, nontender, and nondistended. Bowel sounds positive in all 4 quadrants. Genitourinary: Deferred. Extremities: No cyanosis, no clubbing, no edema. Peripheral pulses palpable. Neurologic: The patient is awake, alert, and oriented. Vitals & Labs per chart. ASSESSMENT & PLAN 63-year-old male with past medical history of diabetes mellitus, bipolar disorder, chronic back pain, and homelessness who came to the emergency room with multiple complaints. The patient was noticed to have underlying h yperglycemia. The patient did not have any evidence of DKA. The patient was admitted to inpatient setting for further treatment and evaluation. 1. -Hyperglycemia. -S/P insulin drip. -No evidence of any DKA. -Continue sliding scale insulin along with pre-meal insulin basal insulin. 2. Diabetes mellitus. -Uncontrolled. -Hemoglobin A1C >14. -Continue SSI along with pre-meal insulin and basal insulin. 3. Bipolar disorder. -Continue mood stabilizers. 4. Hyponatremia. -Etiology could be multifactorial including underlying hyperglycemia. -Correct hyperglycemia. -Resolved. 5. Essential hypertension. -Continue antihypertensives. 6. Dyslipidemia. -Continue statins. 7. Transaminitis. -Etiology unclear. -Hepatitis panel negative. 8. Anemia. -Microcytic and hypochromic. -Stool OB X1 positive. Repeat stool for OB negative. -Elevated LDH with CBC from admission showing nucleated RBC, concerning for hemolytic anemia. Obtain hematology consult. -Patient was noncompliant with status post hematology bowel preparation. -Status post hematology evaluation who conveyed that the patient's anemia is secondary to underlying iron deficiency. 9. Liver abscess. -Status post CT-guided aspiration on 10/09/2018. -Fluid culture showing Klebsiella pneumoniae. -Continue antimicrobials as per ID. 10. Cardiomyopathy. -Ejection fraction 40-45%. -Continue KRYSTYNA inhibitors. -Add beta-blockers if tolerated. 11. Subacute/late subacute lacunar infarct. -Continue aspirin and statins. 12. Homelessness. 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 13. Severe protein calorie malnutrition. -Dietary consult. -Dietary supplements. 14. Non-compliance with medications and diet. -Reinforced importance of compliance. 15. Bilateral infiltrates on chest x-ray. -Fluid versus pneumonia. -Continue antimicrobials. -Spot diuretics. 16. Fluids, electrolytes, and nutrition. -Carbohydrate controlled diet. 17. DVT prophylaxis. -SQ Lovenox. -Held because of worsening anemia. 18. Plan. -Continue antimicrobials as per ID. -Continue iron supplements. -Repeat abdominal CT with liver protocol showing multiple abscesses. -Order IR guided drainage. The patient was seen in collaboration with Dr. Arriaga. Result Diagram: 10/18/18 0553 10/18/18 0553 Results 24hrs Laboratory Tests Test 10/17/18 17:02 10/17/18 18:34 10/17/18 21:12 10/18/18 05:53 Bedside Glucose 150 73 106 White Blood Count 12.5 H Red Blood Count 3.52 L Hemoglobin 8.0 L Hematocrit 26.8 L Mean Corpuscular Volume 76.1 L Mean Corpuscular 22.7 L Hemoglobin Mean Corpuscular 29.9 L Hemoglobin Concent Red Cell Distribution 15.4 H Width Platelet Count 636 H Mean Platelet Volume 9.1 Immature Granulocytes % 1.400 H Neutrophils % 75.4 Lymphocytes % 14.4 L Monocytes % 7.6 Eosinophils % 0.7 Basophils % 0.5 Nucleated Red Blood 0.0 Cells % Immature Granulocytes # 0.180 H Neutrophils # 9.4 H Lymphocytes # 1.8 Monocytes # 1.0 H Eosinophils # 0.1 Basophils # 0.1 Nucleated Red Blood 0.0 Cells # Sodium Level 134 L Potassium Level 4.3 Chloride Level 96 L Carbon Dioxide Level 33 H Anion Gap 5 Blood Urea Nitrogen 17 Creatinine 0.39 L Est Glomerular Filtrat > 60 Rate mL/min Glucose Level 215 # Calcium Level 8.4 Phosphorus Level 3.3 Magnesium Level 1.9 Test 10/18/18 08:44 Bedside Glucose 341 H Exam/Review of Systems Exam Vitals Vital Signs Date Temp Pulse Resp B/P (MAP) Pulse Ox O2 O2 Flow FiO2 Time Delivery Rate 10/18/18 104 18 152/95 97 Room Air 07:51 (114) 10/18/18 98.1 02:00 Intake and Output 10/17/18 10/17/18 10/18/18 1515:00 23:00 07:00 IntakeIntake Total 50 ml 1750 ml OutputOutput Total 1800 ml 1600 ml BalanceBalance 50 ml -50 ml -1600 ml Results Results 24hrs Laboratory Tests Test 10/17/18 17:02 10/17/18 18:34 10/17/18 21:12 10/18/18 05:53 Bedside Glucose 150 73 106 White Blood Count 12.5 H Red Blood Count 3.52 L Hemoglobin 8.0 L Hematocrit 26.8 L Mean Corpuscular Volume 76.1 L Mean Corpuscular 22.7 L Hemoglobin Mean Corpuscular 29.9 L Hemoglobin Concent Red Cell Distribution 15.4 H Width Platelet Count 636 H Mean Platelet Volume 9.1 Immature Granulocytes % 1.400 H Neutrophils % 75.4 Lymphocytes % 14.4 L Monocytes % 7.6 Eosinophils % 0.7 Basophils % 0.5 Nucleated Red Blood 0.0 Cells % Immature Granulocytes # 0.180 H Neutrophils # 9.4 H Lymphocytes # 1.8 Monocytes # 1.0 H Eosinophils # 0.1 Basophils # 0.1 Nucleated Red Blood 0.0 Cells # Sodium Level 134 L Potassium Level 4.3 Chloride Level 96 L Carbon Dioxide Level 33 H Anion Gap 5 Blood Urea Nitrogen 17 Creatinine 0.39 L Est Glomerular Filtrat > 60 Rate mL/min Glucose Level 215 # Calcium Level 8.4 Phosphorus Level 3.3 Magnesium Level 1.9 Test 10/18/18 08:44 Bedside Glucose 341 H Medications Medication Current Medications Gabapentin (Neurontin) 300 mg TID PO Last administered on 10/18/18at 08:52; Admin Dose 300 MG; Start 10/02/18 at 09:00 Ondansetron HCl (Zofran Inj) 4 mg Q6H PRN IV NAUSEA AND/OR VOMITING; Start 10/02/18 at 02:00 Albuterol (Proventil 0.083% (Neb)) 2.5 mg Q2H RESP THERAPY PRN NEB SHORTNESS OF BREATH; Start 10/02/18 at 02:00 Acetaminophen (Tylenol Liquid) 650 mg Q6H PRN PO PAIN LEVEL 1-3 OR FEVER Last administered on 10/14/18 07:57; Admin Dose 650 MG; Start 10/02/18 at 02:00 Menthol/Methyl Salicylate (Memo Erazo) 1 applic TID PRN TOP pain; Start 10/02/18 at 06:30 Tramadol HCl (Ultram) 50 mg Q6H PRN PO MODERATE PAIN LEVEL 4-6 Last administered on 10/16/18 13:07; Admin Dose 50 MG; Start 10/02/18 at 11:00 Potassium Chloride (Potassium Chloride Pwd/Soln) 20 meq PER PROTOCOL PRN PO POTASSIUM REPLACEMENT PROTOCOL; Start 10/02/18 at 11:30 Potassium Chloride (Potassium Chloride Pwd/Soln) 30 meq PER PROTOCOL PRN PO POTASSIUM REPLACEMENT PROTOCOL; Start 10/02/18 at 11:30 Potassium Chloride (Potassium Chloride Pwd/Soln) 40 meq PER PROTOCOL PRN PO POTASSIUM REPLACEMENT PROTOCOL; Start 10/02/18 at 11:30 Diagnostic Test (Pha) (Accu-Chek) 1 ea 02 XX Last administered on 10/07/18at 01:23; Admin Dose 1 EA; Start 10/03/18 at 02:00 Miscellaneous Information 1 ea NOTE XX ; Start 10/02/18 at 22:00 Glucose (Glutose) 15 gm Q15M PRN PO DECREASED GLUCOSE; Start 10/02/18 at 22:00 Glucose (Glutose) 22.5 gm Q15M PRN PO DECREASED GLUCOSE; Start 10/02/18 at 22:00 Dextrose (D50w Syringe) 25 ml Q15M PRN IV DECREASED GLUCOSE Last administered on 10/12/18at 20:44; Admin Dose 25 ML; Start 10/02/18 at 22:00 Dextrose (D50w Syringe) 50 ml Q15M PRN IV DECREASED GLUCOSE Last administered on 10/12/18at 18:15; Admin Dose 50 ML; Start 10/02/18 at 22:00 Glucagon (Glucagen) 1 mg Q15M PRN IM DECREASED GLUCOSE; Start 10/02/18 at 22:00 Glucose (Glutose) 15 gm Q15M PRN BUCCAL DECREASED GLUCOSE; Start 10/02/18 at 22:00 Diagnostic Test (Pha) (Accu-Chek) 1 ea AC MEALS AND BEDTIME XX Last administered on 10/17/18 17:03; Admin Dose 1 EA; Start 10/03/18 at 17:05 Calcium Carbonate (Tums) 500 mg Q4 PRN PO epigastric pain Last administered on 10/16/18 11:32; Admin Dose 500 MG; Start 10/05/18 at 01:30 Pantoprazole (Protonix Tab) 40 mg DAILY@06 PO Last administered on 10/18/18 06:17; Admin Dose 40 MG; Start 10/06/18 at 06:00 Lactobacillus Acidophilus/ Rhamnosus (Culturelle) 1 cap BID PO Last administered on 10/18/18 08:52; Admin Dose 1 CAP; Start 10/08/18 at 21:00 Acetaminophen/ Hydrocodone Bitart ([place] (10/325)) 1 tab Q6H PRN PO SEVERE PAIN LEVEL 7-10 Last administered on 10/18/18 08:53; Admin Dose 1 TAB; Start 10/08/18 at 14:30 Nicotine (Nicoderm 14 Mg/ 24hr) 1 patch DAILY TRANSDERM Last administered on 10/18/18 08:48; Admin Dose 1 PATCH; Start 10/08/18 at 14:30 Loperamide HCl (Imodium Cap) 2 mg QID PRN PO DIARRHEA; Start 10/09/18 at 12:11 Atorvastatin Calcium (Lipitor) 20 mg QHS PO Last administered on 10/17/18 21:13; Admin Dose 20 MG; Start 10/15/18 at 21:00 Hydrocortisone (Anusol-Hc Supp) 25 mg TID PRN [place] HEMORROID PAIN/ITCHING; Start 10/09/18 at 13:30 Potassium Chloride (Potassium Chloride Pwd/Soln) 20 meq DAILY PO Last administered on 10/18/18 08:59; Admin Dose 20 MEQ; Start 10/09/18 at 13:30 Enoxaparin Sodium (Lovenox) 40 mg DAILY SC Last administered on 10/18/18 08:52; Admin Dose 40 MG; Start 10/14/18 at 09:00 Aspirin (Halfprin) 81 mg DAILY PO Last administered on 10/18/18 08:52; Admin Dose 81 MG; Start 10/14/18 at 14:00 Insulin Aspart (Novolog Insulin Pen) NOVOLOG *MODERATE* ALGORITHM WITH MEALS BEDTIME SC Last administered on 10/18/18 08:51; Admin Dose 10 UNIT; Start 10/13/18 at 08:00 Metoclopramide HCl (Reglan) 5 mg TID PO Last administered on 10/18/18 08:53; Admin Dose 5 MG; Start 10/13/18 at 13:00 Sucralfate (Carafate) 1 gm QID PO Last administered on 10/18/18 08:52; Admin Dose 1 GM; Start 10/13/18 at 13:00 Insulin Aspart (Novolog Insulin Pen) 5 unit WITH MEALS SC Last administered on 10/18/18 08:51; Admin Dose 5 UNIT; Start 10/13/18 at 18:00 Insulin Glargine (Lantus) 15 units DAILY@0800 SC Last administered on 10/18/18 08:49; Admin Dose 15 UNITS; Start 10/14/18 at 08:00 Lisinopril (Zestril) 10 mg DAILY PO Last administered on 10/18/18 08:52; Admin Dose 10 MG; Start 10/15/18 at 09:00 Morphine Sulfate (morphine) 6 mg Q4H PRN PO SEVERE PAIN LEVEL 7-10; Start 10/15/18 at 15:30 Paroxetine HCl (Paxil) 20 mg DAILY PO Last administered on 10/18/18 08:52; Admin Dose 20 MG; Start 10/17/18 at 09:00 Buspirone HCl (Buspar) 10 mg BID PO Last administered on 10/18/18 08:52; Admin Dose 10 MG; Start 10/16/18 at 21:00 Furosemide (Lasix) 20 mg DAILY IV Last administered on 10/18/18 08:52; Admin Dose 20 MG; Start 10/17/18 at 13:30 Metronidazole (Flagyl) 500 mg Q8 PO ; Start 10/18/18 at 14:00 Ciprofloxacin (Cipro) 500 mg BID@06,18 PO ; Start 10/18/18 at 18:00 Ceftriaxone Sodium 50 ml @ 100 mls/hr Q24H IVPB ; Start 10/18/18 at 11:30; Status UNV HERRERA SALDAÑA NP Oct 18, 2018 12:12
--- NOTE | 2018-10-18 13:43 | CONS ---
Assessment/Plan Assessment/Plan Hospital Course (Demo Recall) #Anemia -pt is now confirmed to have Beta Thalassemia which is certainly a contributing factor to his microcytic anemia -initially pt was noted to have a low iron saturation in the setting of a high ferritin and low TIBC. THus there is also a component of chronic inflammation from the underlying liver abscess and diabetes, as well as a component of iron deficiency. now s/p 10 days of IV iron -EGD and coloscopy did not reveal evidence of active GI bleed although colon prep was suboptimal -there does not seem to be evidence of hemolysis given the elevated haptoglobin -negative SPEP rules out monoclonal gammopathy -patient's epo level is elevated. I do not feel he would benefit from procrit at this time #elevated Alk phos -bone scan negative -recent CT A/P demonstrates un resolved liver abscesses which is likely the underlying cause of elevated AFP -pt scheduled for IR guided drainage of the liver abscess #DM -uncontrolled -continue insulin per primary team #Bipolar -continue mood stabilizers -continue mood stabilizers Consultation Date/Type/Reason Admit Date/Time Oct 02, 2018 at 00:05 Initial Consult Date 10/04/18 Type of Consult Hematology Reason for Consultation anemia Requesting Provider: HERRERA SALDAÑA NP Date/Time of Note DATE: 10/18/18 TIME: 13:36 24 HR Interval Summary Free Text/Dictation no acute overnight events. pt now on ciprofloxacin and flagyl. wound cx resulted as Klebsiella pneumonia Exam/Review of Systems Exam Vitals Vital Signs Date Temp Pulse Resp B/P (MAP) Pulse Ox O2 O2 Flow FiO2 Time Delivery Rate 10/18/18 104 18 152/95 97 Room Air 07:51 (114) 10/18/18 98.1 02:00 Intake and Output 10/17/18 10/17/18 10/18/18 1515:00 23:00 07:00 IntakeIntake Total 50 ml 1750 ml OutputOutput Total 1800 ml 1600 ml BalanceBalance 50 ml -50 ml -1600 ml Constitutional: alert Psych: nl mood/affect, anxiety, depression Head: normocephalic Eyes: nl conjunctiva ENMT: nl external ears & nose Neck: supple Respiratory: clear to auscultation Cardiovascular: regular rate and rhythm Gastrointestinal: soft Musculoskeletal: nl extremities to inspection Extremities: normal pulses Results Result Diagram: 10/18/18 0553 10/18/18 0553 Results 24hrs Laboratory Tests Test 10/17/18 17:02 10/17/18 18:34 10/17/18 21:12 10/18/18 05:53 Bedside Glucose 150 73 106 White Blood Count 12.5 H Red Blood Count 3.52 L Hemoglobin 8.0 L Hematocrit 26.8 L Mean Corpuscular Volume 76.1 L Mean Corpuscular 22.7 L Hemoglobin Mean Corpuscular 29.9 L Hemoglobin Concent Red Cell Distribution 15.4 H Width Platelet Count 636 H Mean Platelet Volume 9.1 Immature Granulocytes % 1.400 H Neutrophils % 75.4 Lymphocytes % 14.4 L Monocytes % 7.6 Eosinophils % 0.7 Basophils % 0.5 Nucleated Red Blood 0.0 Cells % Immature Granulocytes # 0.180 H Neutrophils # 9.4 H Lymphocytes # 1.8 Monocytes # 1.0 H Eosinophils # 0.1 Basophils # 0.1 Nucleated Red Blood 0.0 Cells # Sodium Level 134 L Potassium Level 4.3 Chloride Level 96 L Carbon Dioxide Level 33 H Anion Gap 5 Blood Urea Nitrogen 17 Creatinine 0.39 L Est Glomerular Filtrat > 60 Rate mL/min Glucose Level 215 # Calcium Level 8.4 Phosphorus Level 3.3 Magnesium Level 1.9 Test 10/18/18 08:44 10/18/18 12:19 Bedside Glucose 341 H 288 H Medications Medication Current Medications Gabapentin (Neurontin) 300 mg TID PO Last administered on 10/18/18at 12:15; Admin Dose 300 MG; Start 10/02/18 at 09:00 Ondansetron HCl (Zofran Inj) 4 mg Q6H PRN IV NAUSEA AND/OR VOMITING; Start 10/02/18 at 02:00 Albuterol (Proventil 0.083% (Neb)) 2.5 mg Q2H RESP THERAPY PRN NEB SHORTNESS OF BREATH; Start 10/02/18 at 02:00 Acetaminophen (Tylenol Liquid) 650 mg Q6H PRN PO PAIN LEVEL 1-3 OR FEVER Last administered on 10/14/18at 07:57; Admin Dose 650 MG; Start 10/02/18 at 02:00 Menthol/Methyl Salicylate (Memo Erazo) 1 applic TID PRN TOP pain; Start 10/02/18 at 06:30 Tramadol HCl (Ultram) 50 mg Q6H PRN PO MODERATE PAIN LEVEL 4-6 Last administered on 10/16/18 13:07; Admin Dose 50 MG; Start 10/02/18 at 11:00 Potassium Chloride (Potassium Chloride Pwd/Soln) 20 meq PER PROTOCOL PRN PO POTASSIUM REPLACEMENT PROTOCOL; Start 10/02/18 at 11:30 Potassium Chloride (Potassium Chloride Pwd/Soln) 30 meq PER PROTOCOL PRN PO POTASSIUM REPLACEMENT PROTOCOL; Start 10/02/18 at 11:30 Potassium Chloride (Potassium Chloride Pwd/Soln) 40 meq PER PROTOCOL PRN PO POTASSIUM REPLACEMENT PROTOCOL; Start 10/02/18 at 11:30 Diagnostic Test (Pha) (Accu-Chek) 1 ea 02 XX Last administered on 10/07/18 01:23; Admin Dose 1 EA; Start 10/03/18 at 02:00 Miscellaneous Information 1 ea NOTE XX ; Start 10/02/18 at 22:00 Glucose (Glutose) 15 gm Q15M PRN PO DECREASED GLUCOSE; Start 10/02/18 at 22:00 Glucose (Glutose) 22.5 gm Q15M PRN PO DECREASED GLUCOSE; Start 10/02/18 at 22:00 Dextrose (D50w Syringe) 25 ml Q15M PRN IV DECREASED GLUCOSE Last administered on 10/12/18 20:44; Admin Dose 25 ML; Start 10/02/18 at 22:00 Dextrose (D50w Syringe) 50 ml Q15M PRN IV DECREASED GLUCOSE Last administered on 10/12/18 18:15; Admin Dose 50 ML; Start 10/02/18 at 22:00 Glucagon (Glucagen) 1 mg Q15M PRN IM DECREASED GLUCOSE; Start 10/02/18 at 22:00 Glucose (Glutose) 15 gm Q15M PRN BUCCAL DECREASED GLUCOSE; Start 10/02/18 at 22:00 Diagnostic Test (Pha) (Accu-Chek) 1 ea AC MEALS AND BEDTIME XX Last admini stered on 10/17/18at 17:03; Admin Dose 1 EA; Start 10/03/18 at 17:05 Calcium Carbonate (Tums) 500 mg Q4 PRN PO epigastric pain Last administered on 10/16/18 11:32; Admin Dose 500 MG; Start 10/05/18 at 01:30 Pantoprazole (Protonix Tab) 40 mg DAILY@06 PO Last administered on 10/18/18 06:17; Admin Dose 40 MG; Start 10/06/18 at 06:00 Lactobacillus Acidophilus/ Rhamnosus (Culturelle) 1 cap BID PO Last administered on 10/18/18 08:52; Admin Dose 1 CAP; Start 10/08/18 at 21:00 Acetaminophen/ Hydrocodone Bitart ([place] (10/325)) 1 tab Q6H PRN PO SEVERE PAIN LEVEL 7-10 Last administered on 10/18/18 08:53; Admin Dose 1 TAB; Start 10/08/18 at 14:30 Nicotine (Nicoderm 14 Mg/ 24hr) 1 patch DAILY TRANSDERM Last administered on 10/18/18 08:48; Admin Dose 1 PATCH; Start 10/08/18 at 14:30 Loperamide HCl (Imodium Cap) 2 mg QID PRN PO DIARRHEA; Start 10/09/18 at 12:11 Atorvastatin Calcium (Lipitor) 20 mg QHS PO Last administered on 10/17/18 21:13; Admin Dose 20 MG; Start 10/15/18 at 21:00 Hydrocortisone (Anusol-Hc Supp) 25 mg TID PRN [place] HEMORROID PAIN/ITCHING; Start 10/09/18 at 13:30 Potassium Chloride (Potassium Chloride Pwd/Soln) 20 meq DAILY PO Last administered on 10/18/18 08:59; Admin Dose 20 MEQ; Start 10/09/18 at 13:30 Enoxaparin Sodium (Lovenox) 40 mg DAILY SC Last administered on 10/18/18 08:52; Admin Dose 40 MG; Start 10/14/18 at 09:00 Aspirin (Halfprin) 81 mg DAILY PO Last administered on 10/18/18 08:52; Admin Dose 81 MG; Start 10/14/18 at 14:00 Insulin Aspart (Novolog Insulin Pen) NOVOLOG *MODERATE* ALGORITHM WITH MEALS BEDTIME SC Last administered on 10/18/18 12:20; Admin Dose 8 UNIT; Start 10/13/18 at 08:00 Metoclopramide HCl (Reglan) 5 mg TID PO Last administered on 10/18/18 12:15; Admin Dose 5 MG; Start 10/13/18 at 13:00 Sucralfate (Carafate) 1 gm QID PO Last administered on 10/18/18 12:15; Admin Dose 1 GM; Start 10/13/18 at 13:00 Insulin Aspart (Novolog Insulin Pen) 5 unit WITH MEALS SC Last administered on 10/18/18 12:20; Admin Dose 5 UNIT; Start 10/13/18 at 18:00 Insulin Glargine (Lantus) 15 units DAILY@0800 SC Last administered on 10/18/18 08:49; Admin Dose 15 UNITS; Start 10/14/18 at 08:00 Lisinopril (Zestril) 10 mg DAILY PO Last administered on 10/18/18 08:52; Admin Dose 10 MG; Start 10/15/18 at 09:00 Morphine Sulfate (morphine) 6 mg Q4H PRN PO SEVERE PAIN LEVEL 7-10; Start 10/15/18 at 15:30 Paroxetine HCl (Paxil) 20 mg DAILY PO Last administered on 10/18/18 08:52; Admin Dose 20 MG; Start 10/17/18 at 09:00 Buspirone HCl (Buspar) 10 mg BID PO Last administered on 10/18/18 08:52; Admin Dose 10 MG; Start 10/16/18 at 21:00 Furosemide (Lasix) 20 mg DAILY IV Last administered on 10/18/18 08:52; Admin Dose 20 MG; Start 10/17/18 at 13:30 Metronidazole (Flagyl) 500 mg Q8 PO ; Start 10/18/18 at 14:00 Ciprofloxacin (Cipro) 500 mg BID@06,18 PO ; Start 10/18/18 at 18:00 MAYA CASTILLO M.D. Oct 18, 2018 13:43
[2018-10-18] MEDS: metroNIDAZOLE 500 MG TAB PO SCH ×2 (14:41→21:27)
[2018-10-18] MEDS: CIPROFLOXACIN 500 MG TAB PO SCH (17:33)
[2018-10-18 20:00] VITALS: BP 131/73; PULSE 111; RESP 18
[2018-10-18] MEDS: ATORVASTATIN 20 MG TAB PO SCH (20:13)
[2018-10-19] VITALS (12 sets, daily range): BP systolic 115–151; BP diastolic 60–92; PULSE 94–110; RESP 15–19
[2018-10-19] MEDS ORDERED: INSULIN ASPART [NOVOLOG] 3 ML PEN SC SCH
[2018-10-19] MEDS ORDERED: DEXTROSE 5% 1,000 ML IV SCH
[2018-10-19] MEDS: Insulin NOVOLOG SS MODERATE Algorithm(NPO/TPN/ENTERAL FEEDS) SC SCH ×6 (01:18→20:39)
[2018-10-19] MEDS: CIPROFLOXACIN 500 MG TAB PO SCH ×2 (05:32→17:12)
[2018-10-19] MEDS: metroNIDAZOLE 500 MG TAB PO SCH ×3 (05:32→20:39)
[2018-10-19] MEDS: PANTOPRAZOLE (EC) 40 MG TAB PO SCH (05:33)
[2018-10-19] MEDS: ACCU-CHEK XX SCH ×4 (07:00→21:00)
[2018-10-19] MEDS: INSULIN ASPART [NOVOLOG] 3 ML PEN SC SCH ×3 (08:00→17:11)
[2018-10-19] MEDS ORDERED: LIDOCAINE 1% (MDV) 20 ML INJ ONE (08:41)
--- NOTE | 2018-10-19 08:49 | PREAC ---
Date/Time of Note Date/Time of Note DATE: 10/19/18 TIME: 08:43 Anesthesia Eval and Record Evaluation Time Pre-Procedure Interview DATE: 10/19/18 TIME: 08:43 Age 63 Sex male NPO: 8 hrs Preoperative diagnosis liver abcess Planned procedure drainage of liver abcess Past Medical History Past Medical History: Includes Cardio: Dyslipidemia, CHF Endo: Diabetes Neuro: CVA Heme: Anemia Psych: Bipolar Surgery & Anesthesia Issues No known issue Meds Anticoagulation: No Beta Jose Alejandro within 24 hr: No Reason Beta Jose Alejandro not given: Pt. not on B-Jose Alejandro Active Scripts [Hospitalization Note] No Conflict Check This is to certify that this patien has been hospitalized in this facility from 10/01/2018. The patient is not clinically stable to be discharged at this point. Please have the the patient's billing customer service representative represent the patient wherever necessary. Prov:[employer] 10/16/18 Metformin Hcl (Glucophage) 500 Mg Tablet, 500 MG PO WITH BREAKFAST DINNE, #30 TAB Prov:NIK CAHNDRA MD 08/05/18 Insulin Lispro (Humalog Kwikpen U-100) 100 Unit/1 Ml Insuln.pen, 15 UNIT SQ AC A for 30 Days, EA Prov:NIK CHANDRA MD 08/05/18 Insulin Regular, Human (Humulin R) 100 Unit/1 Ml Vial, 5 UNIT IJ TID for 30 Days, VIAL Prov:NIK CHANDRA MD 08/05/18 Insulin Lispro (Humalog Kwikpen U-100) 100 Unit/1 Ml Insuln.pen, 32 UNIT SQ Daily at Bedtime for 30 Days, #30 Prov:NIK CHANDRA MD 08/05/18 Reported Medications Buspirone Hcl* (Buspirone Hcl*) 10 Mg Tab, 5 MG PO BID, TAB 08/05/18 Lisinopril* (Lisinopril*) 10 Mg Tablet, 10 MG PO DAILY, #30 TAB 08/05/18 Insulin Glargine,Hum.rec.anlog (Basaglar Kwikpen U-100) 100 Unit/1 Ml Insuln.pen, 32 UNIT SC QHS, EA 08/05/18 Insulin Regular, Human (Humulin R) 100 Unit/1 Ml Vial, 5 UNIT IJ TID, VIAL 08/05/18 Insulin Lispro (Humalog Kwikpen U-100) 100 Unit/1 Ml Insuln.pen, 15 UNIT SQ AC A , EA 08/05/18 Atorvastatin Calcium* (Atorvastatin Calcium*) 20 Mg Tablet, 20 MG PO QHS, #30 TAB 08/05/18 Gabapentin* (Gabapentin*) 300 Mg Capsule, 300 MG PO TID, #90 CAP 08/05/18 Metformin Hcl* (Metformin Hcl*) 500 Mg Tablet, 500 MG PO WITH BREAKFAST DINNE, #60 TAB 08/05/18 Docusate Sodium* (Dok*) 100 Mg Tablet, 100 MG PO BID, #60 CAP 08/05/18 Ferrous Sulfate* (Ferrous Sulfate*) 325 Mg Tabec, 325 MG PO BID, TAB 08/05/18 Aspirin (Low Dose Aspirin) 81 Mg Tablet.dr, 81 MG PO DAILY, #30 TAB 08/05/18 Current Medications Gabapentin (Neurontin) 300 mg TID PO Last administered on 10/18/18at 20:13; Admin Dose 300 MG; Start 10/02/18 at 09:00 Ondansetron HCl (Zofran Inj) 4 mg Q6H PRN IV NAUSEA AND/OR VOMITING; Start 10/02/18 at 02:00 Albuterol (Proventil 0.083% (Neb)) 2.5 mg Q2H RESP THERAPY PRN NEB SHORTNESS OF BREATH; Start 10/02/18 at 02:00 Acetaminophen (Tylenol Liquid) 650 mg Q6H PRN PO PAIN LEVEL 1-3 OR FEVER Last administered on 10/14/18at 07:57; Admin Dose 650 MG; Start 10/02/18 at 02:00 Menthol/Methyl Salicylate (Memo Erazo) 1 applic TID PRN TOP pain; Start 10/02/18 at 06:30 Tramadol HCl (Ultram) 50 mg Q6H PRN PO MODERATE PAIN LEVEL 4-6 Last administered on 10/16/18at 13:07; Admin Dose 50 MG; Start 10/02/18 at 11:00 Potassium Chloride (Potassium Chloride Pwd/Soln) 20 meq PER PROTOCOL PRN PO POTASSIUM REPLACEMENT PROTOCOL; Start 10/02/18 at 11:30 Potassium Chloride (Potassium Chloride Pwd/Soln) 30 meq PER PROTOCOL PRN PO POTASSIUM REPLACEMENT PROTOCOL; Start 10/02/18 at 11:30 Potassium Chloride (Potassium Chloride Pwd/Soln) 40 meq PER PROTOCOL PRN PO POTASSIUM REPLACEMENT PROTOCOL; Start 10/02/18 at 11:30 Miscellaneous Information 1 ea NOTE XX ; Start 10/02/18 at 22:00 Glucose (Glutose) 15 gm Q15M PRN PO DECREASED GLUCOSE; Start 10/02/18 at 22:00 Glucose (Glutose) 22.5 gm Q15M PRN PO DECREASED GLUCOSE; Start 10/02/18 at 22:00 Dextrose (D50w Syringe) 25 ml Q15M PRN IV DECREASED GLUCOSE Last administered on 10/12/18 20:44; Admin Dose 25 ML; Start 10/02/18 at 22:00 Dextrose (D50w Syringe) 50 ml Q15M PRN IV DECREASED GLUCOSE Last administered on 10/12/18 18:15; Admin Dose 50 ML; Start 10/02/18 at 22:00 Glucagon (Glucagen) 1 mg Q15M PRN IM DECREASED GLUCOSE; Start 10/02/18 at 22:00 Glucose (Glutose) 15 gm Q15M PRN BUCCAL DECREASED GLUCOSE; Start 10/02/18 at 22:00 Diagnostic Test (Pha) (Accu-Chek) 1 ea AC MEALS AND BEDTIME XX Last administered on 10/17/18 17:03; Admin Dose 1 EA; Start 10/03/18 at 17:05 Calcium Carbonate (Tums) 500 mg Q4 PRN PO epigastric pain Last administered on 10/16/18 11:32; Admin Dose 500 MG; Start 10/05/18 at 01:30 Pantoprazole (Protonix Tab) 40 mg DAILY@06 PO Last administered on 10/18/18 06:17; Admin Dose 40 MG; Start 10/06/18 at 06:00 Lactobacillus Acidophilus/ Rhamnosus (Culturelle) 1 cap BID PO Last administered on 10/18/18 20:13; Admin Dose 1 CAP; Start 10/08/18 at 21:00 Acetaminophen/ Hydrocodone Bitart ([place] (10/325)) 1 tab Q6H PRN PO SEVERE PAIN LEVEL 7-10 Last administered on 10/18/18 21:27; Admin Dose 1 TAB; Start 10/08/18 at 14:30 Nicotine (Nicoderm 14 Mg/ 24hr) 1 patch DAILY TRANSDERM Last administered on 10/18/18 08:48; Admin Dose 1 PATCH; Start 10/08/18 at 14:30 Loperamide HCl (Imodium Cap) 2 mg QID PRN PO DIARRHEA; Start 10/09/18 at 12:11 Atorvastatin Calcium (Lipitor) 20 mg QHS PO Last administered on 10/18/18 20:13; Admin Dose 20 MG; Start 10/15/18 at 21:00 Hydrocortisone (Anusol-Hc Supp) 25 mg TID PRN [place] HEMORROID PAIN/ITCHING; Start 10/09/18 at 13:30 Potassium Chloride (Potassium Chloride Pwd/Soln) 20 meq DAILY PO Last administered on 10/18/18 08:59; Admin Dose 20 MEQ; Start 10/09/18 at 13:30 Enoxaparin Sodium (Lovenox) 40 mg DAILY SC Last administered on 10/18/18 08:52; Admin Dose 40 MG; Start 10/14/18 at 09:00 Aspirin (Halfprin) 81 mg DAILY PO Last administered on 10/18/18 08:52; Admin Dose 81 MG; Start 10/14/18 at 14:00 Metoclopramide HCl (Reglan) 5 mg TID PO Last administered on 10/18/18 20:13; Admin Dose 5 MG; Start 10/13/18 at 13:00 Sucralfate (Carafate) 1 gm QID PO Last administered on 10/18/18 20:13; Admin Dose 1 GM; Start 10/13/18 at 13:00 Insulin Aspart (Novolog Insulin Pen) 5 unit WITH MEALS SC Last administered on 10/18/18 17:36; Admin Dose 5 UNIT; Start 10/13/18 at 18:00 Insulin Glargine (Lantus) 15 units DAILY@0800 SC Last administered on 10/18/18 08:49; Admin Dose 15 UNITS; Start 10/14/18 at 08:00 Lisinopril (Zestril) 10 mg DAILY PO Last administered on 10/18/18 08:52; Admin Dose 10 MG; Start 10/15/18 at 09:00 Morphine Sulfate (morphine) 6 mg Q4H PRN PO SEVERE PAIN LEVEL 7-10; Start 10/15/18 at 15:30 Paroxetine HCl (Paxil) 20 mg DAILY PO Last administered on 10/18/18 08:52; Admin Dose 20 MG; Start 10/17/18 at 09:00 Buspirone HCl (Buspar) 10 mg BID PO Last administered on 10/18/18 20:13; Admin Dose 10 MG; Start 10/16/18 at 21:00 Furosemide (Lasix) 20 mg DAILY IV Last administered on 10/18/18 08:52; Admin Dose 20 MG; Start 10/17/18 at 13:30 Metronidazole (Flagyl) 500 mg Q8 PO Last administered on 10/18/18 21:27; Admin Dose 500 MG; Start 10/18/18 at 14:00 Ciprofloxacin (Cipro) 500 mg BID@06,18 PO Last administered on 10/18/18 17:33; Admin Dose 500 MG; Start 10/18/18 at 18:00 Dextrose 1,000 ml @ 60 mls/hr [id number] IV Last administered on 10/19/18 00:01; Admin Dose 60 MLS/HR; Start 10/19/18 at 00:00 Insulin Aspart (Novolog Insulin Pen) (Adult SC Insulin - Moder... Q4 SC Last administered on 10/19/18 04:39; Admin Dose 4 UNIT; Start 10/19/18 at 01:00 Meds reviewed: Yes Allergies Coded Allergies: No Known Drug Allergies (Verified Allergy, Unknown, 10/02/18) Allergies Reviewed: Yes Labs/Studies Labs Reviewed: Reviewed by anesthesiologist Result Diagram: 10/19/18 0616 10/19/18 0616 Laboratory Tests 10/19/18 06:16 test: N/A Pre-procedure Exam Last vitals Vital Signs Date Temp Pulse Resp B/P (MAP) Pulse Ox O2 O2 Flow FiO2 Time Delivery Rate 10/19/18 97.3 98 18 134/71 98 07:31 (92) 10/18/18 Room Air 07:51 Airway: Adequate mouth opening, Adequate thyromental dist Mallampati: Mallampati IV Teeth: Abnormal (multiple teeth missing and one loose ) Lung: Normal Heart: Normal ASA Physical Status ASA physical status: 4 Emergency: None Pre-operative Attestations Prior to commencing anesthesia and surgery, the patient was re-evaluated, there was verification of: *The patient's identity *The results of appropriate recent lab work and preoperative vital signs *The above evaluation not changing prior to induction *Anesthetic plan, risk benefits, alternative and complications discussed with patient/family; questions answered; patient/family understands, accepts and wishes to proceed. MARK CALLAHAN DO Oct 19, 2018 08:49
[2018-10-19] MEDS ORDERED: PROPOFOL 0 ML ONE (08:50)
[2018-10-19] MEDS ORDERED: MIDAZOLAM 1 MG/ML 2 ML INJ ONE (08:50)
[2018-10-19] MEDS ORDERED: FENTAnyl 50 MCG/ML VIAL ONE ×2 (08:50)
[2018-10-19] MEDS: LACTOBACILLUS RHAMNOSUS CAP PO SCH ×2 (09:00→20:38)
[2018-10-19] MEDS: ASPIRIN (EC) 81 MG TAB PO SCH (09:00)
[2018-10-19] MEDS: BUSPIRONE 5 MG TAB PO SCH ×2 (09:00→20:38)
[2018-10-19] MEDS: SUCRALFATE 1 GM TAB PO SCH ×4 (09:00→20:38)
[2018-10-19] MEDS: METOCLOPRAMIDE 5 MG TAB PO SCH ×3 (09:00→20:38)
[2018-10-19] MEDS: POTASSIUM CHLORIDE 20 MEQ POWDER FOR ORAL SOLN PO SCH (09:00)
[2018-10-19] MEDS: NICOTINE (14 MG/24 HR) PATCH TRANSDERM SCH (09:00)
[2018-10-19] MEDS: GABAPENTIN 300 MG CAP PO SCH ×3 (09:00→20:38)
[2018-10-19] MEDS: ENOXAPARIN 40 MG/0.4 ML SYG SC SCH (09:00)
--- NOTE | 2018-10-19 09:39 | HPN ---
Date/Time of Note Date/Time of Note DATE: 10/19/18 TIME: 09:39 Interval H&P Admission Note Pt. seen H&P reviewed: No system changes MEENU ENGLAND MD Oct 19, 2018 09:39
--- NOTE | 2018-10-19 10:09 | PAC ---
Date/Time of Note Date/Time of Note DATE: 10/19/18 TIME: 10:09 Post-Anesthesia Notes Post-Anesthesia Note Last documented vital signs Vital Signs Date Temp Pulse Resp B/P (MAP) Pulse Ox O2 O2 Flow FiO2 Time Delivery Rate 99.9 96 18 135/65 98 10/18/18 Room Air 07:51 Activity: WNL Respiratory function: WNL Cardiovascular function: WNL Mental status: Baseline Pain reasonably controlled: Yes Hydration appropriate: Yes Nausea/Vomiting absent: Yes MARK CALLAHAN DO Oct 19, 2018 10:09
[2018-10-19] MEDS: traMADol 50 MG TAB PO PRN (10:27)
--- NOTE | 2018-10-19 10:31 | CONS ---
Assessment/Plan Assessment/Plan Hospital Course (Demo Recall) #Anemia -pt is now confirmed to have Beta Thalassemia which is certainly a contributing factor to his microcytic anemia -initially pt was noted to have a low iron saturation in the setting of a high ferritin and low TIBC. THus there is also a component of chronic inflammation from the underlying liver abscess and diabetes, as well as a component of iron deficiency. now s/p 10 days of IV iron -EGD and coloscopy did not reveal evidence of active GI bleed although colon prep was suboptimal -there does not seem to be evidence of hemolysis given the elevated haptoglobin -negative SPEP rules out monoclonal gammopathy -patient's epo level is elevated. I do not feel he would benefit from procrit at this time #elevated Alk phos -bone scan negative -recent CT A/P demonstrates un resolved liver abscesses which is likely the underlying cause of elevated AFP -s/p IR guided drainage of the liver abscess -continue abx for liver abscess #DM -uncontrolled -continue insulin per primary team #Bipolar -continue mood stabilizers -continue mood stabilizers Consultation Date/Type/Reason Admit Date/Time Oct 02, 2018 at 00:05 Initial Consult Date 10/04/18 Type of Consult Hematology Reason for Consultation no acute overnight events. no bleeding Requesting Provider: HERRERA SALDAÑA NP Date/Time of Note DATE: 10/19/18 TIME: 10:28 24 HR Interval Summary Free Text/Dictation pt getting IR guided drainage of remaining liver abscess Exam/Review of Systems Exam Vitals Vital Signs Date Temp Pulse Resp B/P (MAP) Pulse Ox O2 O2 Flow FiO2 Time Delivery Rate 10/19/18 97.3 98 18 134/71 98 07:31 (92) 10/18/18 Room Air 07:51 Intake and Output 10/18/18 10/18/18 10/19/18 1515:00 23:00 07:00 IntakeIntake Total 430 ml 360 ml OutputOutput Total 315 ml BalanceBalance 430 ml 45 ml Constitutional: alert, oriented Psych: no complaints, anxiety, depression Head: normocephalic Eyes: nl conjunctiva ENMT: nl external ears & nose Neck: supple Respiratory: clear to auscultation Cardiovascular: regular rate and rhythm Gastrointestinal: soft Musculoskeletal: nl extremities to inspection Results Result Diagram: 10/19/18 0616 10/19/18 0616 Results 24hrs Laboratory Tests Test 3/7/19 12:19 10/18/18 17:35 10/18/18 20:12 10/19/18 01:15 Bedside Glucose 288 H 124 168 313 H Test 10/19/18 04:35 10/19/18 06:16 Bedside Glucose 198 White Blood Count 12.8 H Red Blood Count 3.26 L Hemoglobin 7.5 L Hematocrit 24.6 L Mean Corpuscular Volume 75.5 L Mean Corpuscular 23.0 L Hemoglobin Mean Corpuscular 30.5 L Hemoglobin Concent Red Cell Distribution 15.8 H Width Platelet Count 635 H Mean Platelet Volume 9.4 Immature Granulocytes % 2.000 H Neutrophils % 75.0 Lymphocytes % 14.6 L Monocytes % 7.1 Eosinophils % 0.8 Basophils % 0.5 Nucleated Red Blood 0.0 Cells % Immature Granulocytes # 0.250 H Neutrophils # 9.6 H Lymphocytes # 1.9 Monocytes # 0.9 Eosinophils # 0.1 Basophils # 0.1 Nucleated Red Blood 0.0 Cells # Prothrombin Time 13.0 Prothrombin Time Ratio 1.0 INR International 0.97 Normalized Ratio Activated 32.0 Partial Thromboplast Time Sodium Level 136 Potassium Level 4.0 Chloride Level 94 L Carbon Dioxide Level 35 H Anion Gap 7 Blood Urea Nitrogen 18 Creatinine 0.47 L Est Glomerular Filtrat > 60 Rate mL/min Glucose Level 180 Calcium Level 8.6 Phosphorus Level 3.6 Magnesium Level 1.8 Medications Medication Current Medications Gabapentin (Neurontin) 300 mg TID PO Last administered on 10/18/18at 20:13; Admin Dose 300 MG; Start 10/02/18 at 09:00 Ondansetron HCl (Zofran Inj) 4 mg Q6H PRN IV NAUSEA AND/OR VOMITING; Start 10/02/18 at 02:00 Albuterol (Proventil 0.083% (Neb)) 2.5 mg Q2H RESP THERAPY PRN NEB SHORTNESS OF BREATH; Start 10/02/18 at 02:00 Acetaminophen (Tylenol Liquid) 650 mg Q6H PRN PO PAIN LEVEL 1-3 OR FEVER Last administered on 10/14/18at 07:57; Admin Dose 650 MG; Start 10/02/18 at 02:00 Menthol/Methyl Salicylate (Memo Erazo) 1 applic TID PRN TOP pain; Start 10/02/18 at 06:30 Tramadol HCl (Ultram) 50 mg Q6H PRN PO MODERATE PAIN LEVEL 4-6 Last administered on 10/19/18 10:27; Admin Dose 50 MG; Start 10/02/18 at 11:00 Potassium Chloride (Potassium Chloride Pwd/Soln) 20 meq PER PROTOCOL PRN PO POTASSIUM REPLACEMENT PROTOCOL; Start 10/02/18 at 11:30 Potassium Chloride (Potassium Chloride Pwd/Soln) 30 meq PER PROTOCOL PRN PO POTASSIUM REPLACEMENT PROTOCOL; Start 10/02/18 at 11:30 Potassium Chloride (Potassium Chloride Pwd/Soln) 40 meq PER PROTOCOL PRN PO POTASSIUM REPLACEMENT PROTOCOL; Start 10/02/18 at 11:30 Miscellaneous Information 1 ea NOTE XX ; Start 10/02/18 at 22:00 Glucose (Glutose) 15 gm Q15M PRN PO DECREASED GLUCOSE; Start 10/02/18 at 22:00 Glucose (Glutose) 22.5 gm Q15M PRN PO DECREASED GLUCOSE; Start 10/02/18 at 22:00 Dextrose (D50w Syringe) 25 ml Q15M PRN IV DECREASED GLUCOSE Last administered on 10/12/18at 20:44; Admin Dose 25 ML; Start 10/02/18 at 22:00 Dextrose (D50w Syringe) 50 ml Q15M PRN IV DECREASED GLUCOSE Last administered on 10/12/18at 18:15; Admin Dose 50 ML; Start 10/02/18 at 22:00 Glucagon (Glucagen) 1 mg Q15M PRN IM DECREASED GLUCOSE; Start 10/02/18 at 22:00 Glucose (Glutose) 15 gm Q15M PRN BUCCAL DECREASED GLUCOSE; Start 10/02/18 at 22:00 Diagnostic Test (Pha) (Accu-Chek) 1 ea AC MEALS AND BEDTIME XX Last administered on 10/17/18 17:03; Admin Dose 1 EA; Start 10/03/18 at 17:05 Calcium Carbonate (Tums) 500 mg Q4 PRN PO epigastric pain Last administered on 10/16/18 11:32; Admin Dose 500 MG; Start 10/05/18 at 01:30 Pantoprazole (Protonix Tab) 40 mg DAILY@06 PO Last administered on 10/18/18 06:17; Admin Dose 40 MG; Start 10/06/18 at 06:00 Lactobacillus Acidophilus/ Rhamnosus (Culturelle) 1 cap BID PO Last administered on 10/18/18 20:13; Admin Dose 1 CAP; Start 10/08/18 at 21:00 Acetaminophen/ Hydrocodone Bitart ([place] (10/325)) 1 tab Q6H PRN PO SEVERE PAIN LEVEL 7-10 Last administered on 10/18/18 21:27; Admin Dose 1 TAB; Start 10/08/18 at 14:30 Nicotine (Nicoderm 14 Mg/ 24hr) 1 patch DAILY TRANSDERM Last administered on 10/18/18 08:48; Admin Dose 1 PATCH; Start 10/08/18 at 14:30 Loperamide HCl (Imodium Cap) 2 mg QID PRN PO DIARRHEA; Start 10/09/18 at 12:11 Atorvastatin Calcium (Lipitor) 20 mg QHS PO Last administered on 10/18/18 20:13; Admin Dose 20 MG; Start 10/15/18 at 21:00 Hydrocortisone (Anusol-Hc Supp) 25 mg TID PRN [place] HEMORROID PAIN/ITCHING; Start 10/09/18 at 13:30 Potassium Chloride (Potassium Chloride Pwd/Soln) 20 meq DAILY PO Last administered on 10/18/18 08:59; Admin Dose 20 MEQ; Start 10/09/18 at 13:30 Enoxaparin Sodium (Lovenox) 40 mg DAILY SC Last administered on 10/18/18 08:52; Admin Dose 40 MG; Start 10/14/18 at 09:00 Aspirin (Halfprin) 81 mg DAILY PO Last administered on 10/18/18 08:52; Admin Dose 81 MG; Start 10/14/18 at 14:00 Metoclopramide HCl (Reglan) 5 mg TID PO Last administered on 10/18/18 20:13; Admin Dose 5 MG; Start 10/13/18 at 13:00 Sucralfate (Carafate) 1 gm QID PO Last administered on 10/18/18 20:13; Admin Dose 1 GM; Start 10/13/18 at 13:00 Insulin Aspart (Novolog Insulin Pen) 5 unit WITH MEALS SC Last administered on 10/18/18 17:36; Admin Dose 5 UNIT; Start 10/13/18 at 18:00 Insulin Glargine (Lantus) 15 units DAILY@0800 SC Last administered on 10/18/18 08:49; Admin Dose 15 UNITS; Start 10/14/18 at 08:00 Lisinopril (Zestril) 10 mg DAILY PO Last administered on 10/18/18 08:52; Admin Dose 10 MG; Start 10/15/18 at 09:00 Morphine Sulfate (morphine) 6 mg Q4H PRN PO SEVERE PAIN LEVEL 7-10; Start 10/15/18 at 15:30 Paroxetine HCl (Paxil) 20 mg DAILY PO Last administered on 10/18/18 08:52; Admin Dose 20 MG; Start 10/17/18 at 09:00 Buspirone HCl (Buspar) 10 mg BID PO Last administered on 10/18/18 20:13; Admin Dose 10 MG; Start 10/16/18 at 21:00 Furosemide (Lasix) 20 mg DAILY IV Last administered on 10/18/18 08:52; Admin Dose 20 MG; Start 10/17/18 at 13:30 Metronidazole (Flagyl) 500 mg Q8 PO Last administered on 10/18/18 21:27; Admin Dose 500 MG; Start 10/18/18 at 14:00 Ciprofloxacin (Cipro) 500 mg BID@06,18 PO Last administered on 10/18/18 17:33; Admin Dose 500 MG; Start 10/18/18 at 18:00 Dextrose 1,000 ml @ 60 mls/hr [id number] IV Last administered on 10/19/18 00:01; Admin Dose 60 MLS/HR; Start 10/19/18 at 00:00 Insulin Aspart (Novolog Insulin Pen) (Adult SC Insulin - Moder... Q4 SC Last administered on 10/19/18 04:39; Admin Dose 4 UNIT; Start 10/19/18 at 01:00 MAYA CASTILLO M.D. Oct 19, 2018 10:31
[2018-10-19] MEDS: INSULIN GLARGINE [LANTus] (100 UNITS/ML) SYG SC SCH (11:20)
[2018-10-19] MEDS: PAROXETINE 20 MG TAB PO SCH (11:22)
[2018-10-19] MEDS: HYDROCODONE/APAP (10/325) TAB PO PRN (11:33)
--- NOTE | 2018-10-19 11:40 | CONS ---
Assessment/Plan Assessment/Plan Hospital Course (Demo Recall) All noted, no events over night, no fevers Microbiology: Abdominal fluid culture grew Klebsiella pneumonia, blood and urine culture remain negative CT abdomen 10/16/18: Complex cystic areas within the liver compatible with abscesses, with the largest within the anterior segment of the right lobe measuring 4.1 x 4.8 cm. Bilateral moderate pleural effusions with underlying atelectasis/consolidations. Moderately distended stomach. Moderate retained stool within the colon. Markedly distended bladder with mild wall thickening suggestive of cystitis. Clinically correlate. Diffuse intra-abdominal stranding and mild free fluid. Antimicrobials: Cipro Flagyl Physical examination: Well-developed elderly -[place] man in no distress. Head atraumatic normocephalic neck is supple chest rise symmetrical breath sounds diminished bases heart S1-S2 abdomen obese soft bowel sounds present extremities without cyanosis Assessment: 1. S/p sepsis 2. Liver abscesses ==> s/p repeated IR guided aspiration with catheter placement 3. S/p healthcare associated pneumonia 4. Diabetes, poorly controlled 5. Hypertension 6. Bipolar disorder and homelessness 7. Poss retention/cystitis 8. Constipation 9. Anemia/Beta Thalassemia Plan: Clinically stable, continue abx, f/u fluid cx Consultation Date/Type/Reason Admit Date/Time Oct 02, 2018 at 00:05 Initial Consult Date 10/04/18 Type of Consult id Requesting Provider: HERRERA SALDAÑA NP Date/Time of Note DATE: 10/19/18 TIME: 11:37 Exam/Review of Systems Exam Vitals Vital Signs Date Temp Pulse Resp B/P (MAP) Pulse Ox O2 O2 Flow FiO2 Time Delivery Rate 10/19/18 94 16 151/92 96 Room Air 10:47 (111) 10/19/18 98.4 10:12 Intake and Output 10/18/18 10/18/18 10/19/18 1515:00 23:00 07:00 IntakeIntake Total 430 ml 360 ml OutputOutput Total 315 ml BalanceBalance 430 ml 45 ml Results Result Diagram: 10/19/18 0616 10/19/18 0616 Results 24hrs Laboratory Tests Test 10/18/18 12:19 10/18/18 17:35 10/18/18 20:12 10/19/18 01:15 Bedside Glucose 288 H 124 168 313 H Test 10/19/18 04:35 10/19/18 06:16 10/19/18 11:13 Bedside Glucose 198 272 H White Blood Count 12.8 H Red Blood Count 3.26 L Hemoglobin 7.5 L Hematocrit 24.6 L Mean Corpuscular Volume 75.5 L Mean Corpuscular 23.0 L Hemoglobin Mean Corpuscular 30.5 L Hemoglobin Concent Red Cell Distribution 15.8 H Width Platelet Count 635 H Mean Platelet Volume 9.4 Immature Granulocytes % 2.000 H Neutrophils % 75.0 Lymphocytes % 14.6 L Monocytes % 7.1 Eosinophils % 0.8 Basophils % 0.5 Nucleated Red Blood 0.0 Cells % Immature Granulocytes # 0.250 H Neutrophils # 9.6 H Lymphocytes # 1.9 Monocytes # 0.9 Eosinophils # 0.1 Basophils # 0.1 Nucleated Red Blood 0.0 Cells # Prothrombin Time 13.0 Prothrombin Time Ratio 1.0 INR International 0.97 Normalized Ratio Activated 32.0 Partial Thromboplast Time Sodium Level 136 Potassium Level 4.0 Chloride Level 94 L Carbon Dioxide Level 35 H Anion Gap 7 Blood Urea Nitrogen 18 Creatinine 0.47 L Est Glomerular Filtrat > 60 Rate mL/min Glucose Level 180 Calcium Level 8.6 Phosphorus Level 3.6 Magnesium Level 1.8 Medications Medication Current Medications Gabapentin (Neurontin) 300 mg TID PO Last administered on 10/18/18at 20:13; Admin Dose 300 MG; Start 10/02/18 at 09:00 Ondansetron HCl (Zofran Inj) 4 mg Q6H PRN IV NAUSEA AND/OR VOMITING; Start 10/02/18 at 02:00 Albuterol (Proventil 0.083% (Neb)) 2.5 mg Q2H RESP THERAPY PRN NEB SHORTNESS OF BREATH; Start 10/02/18 at 02:00 Acetaminophen (Tylenol Liquid) 650 mg Q6H PRN PO PAIN LEVEL 1-3 OR FEVER Last administered on 10/14/18at 07:57; Admin Dose 650 MG; Start 10/02/18 at 02:00 Menthol/Methyl Salicylate (Memo Erazo) 1 applic TID PRN TOP pain; Start 10/02/18 at 06:30 Tramadol HCl (Ultram) 50 mg Q6H PRN PO MODERATE PAIN LEVEL 4-6 Last administered on 10/19/18at 10:27; Admin Dose 50 MG; Start 10/02/18 at 11:00 Potassium Chloride (Potassium Chloride Pwd/Soln) 20 meq PER PROTOCOL PRN PO POTASSIUM REPLACEMENT PROTOCOL; Start 10/02/18 at 11:30 Potassium Chloride (Potassium Chloride Pwd/Soln) 30 meq PER PROTOCOL PRN PO POTASSIUM REPLACEMENT PROTOCOL; Start 10/02/18 at 11:30 Potassium Chloride (Potassium Chloride Pwd/Soln) 40 meq PER PROTOCOL PRN PO POTASSIUM REPLACEMENT PROTOCOL; Start 10/02/18 at 11:30 Miscellaneous Information 1 ea NOTE XX ; Start 10/02/18 at 22:00 Glucose (Glutose) 15 gm Q15M PRN PO DECREASED GLUCOSE; Start 10/02/18 at 22:00 Glucose (Glutose) 22.5 gm Q15M PRN PO DECREASED GLUCOSE; Start 10/02/18 at 22:00 Dextrose (D50w Syringe) 25 ml Q15M PRN IV DECREASED GLUCOSE Last administered on 10/12/18at 20:44; Admin Dose 25 ML; Start 10/02/18 at 22:00 Dextrose (D50w Syringe) 50 ml Q15M PRN IV DECREASED GLUCOSE Last administered on 10/12/18at 18:15; Admin Dose 50 ML; Start 10/02/18 at 22:00 Glucagon (Glucagen) 1 mg Q15M PRN IM DECREASED GLUCOSE; Start 10/02/18 at 22:00 Glucose (Glutose) 15 gm Q15M PRN BUCCAL DECREASED GLUCOSE; Start 10/02/18 at 22:00 Diagnostic Test (Pha) (Accu-Chek) 1 ea AC MEALS AND BEDTIME XX Last administered on 10/17/18at 17:03; Admin Dose 1 EA; Start 10/03/18 at 17:05 Calcium Carbonate (Tums) 500 mg Q4 PRN PO epigastric pain Last administered on 10/16/18at 11:32; Admin Dose 500 MG; Start 10/05/18 at 01:30 Pantoprazole (Protonix Tab) 40 mg DAILY@06 PO Last administered on 10/18/18at 06:17; Admin Dose 40 MG; Start 10/06/18 at 06:00 Lactobacillus Acidophilus/ Rhamnosus (Culturelle) 1 cap BID PO Last administered on 10/18/18at 20:13; Admin Dose 1 CAP; Start 10/08/18 at 21:00 Acetaminophen/ Hydrocodone Bitart ([place] (10/325)) 1 tab Q6H PRN PO SEVERE PAIN LEVEL 7-10 Last administered on 10/19/18 11:33; Admin Dose 1 TAB; Start 10/08/18 at 14:30 Nicotine (Nicoderm 14 Mg/ 24hr) 1 patch DAILY TRANSDERM Last administered on 10/18/18 08:48; Admin Dose 1 PATCH; Start 10/08/18 at 14:30 Loperamide HCl (Imodium Cap) 2 mg QID PRN PO DIARRHEA; Start 10/09/18 at 12:11 Atorvastatin Calcium (Lipitor) 20 mg QHS PO Last administered on 10/18/18 20:13; Admin Dose 20 MG; Start 10/15/18 at 21:00 Hydrocortisone (Anusol-Hc Supp) 25 mg TID PRN [place] HEMORROID PAIN/ITCHING; Start 10/09/18 at 13:30 Potassium Chloride (Potassium Chloride Pwd/Soln) 20 meq DAILY PO Last administered on 10/18/18 08:59; Admin Dose 20 MEQ; Start 10/09/18 at 13:30 Enoxaparin Sodium (Lovenox) 40 mg DAILY SC Last administered on 10/18/18 08:52; Admin Dose 40 MG; Start 10/14/18 at 09:00 Aspirin (Halfprin) 81 mg DAILY PO Last administered on 10/18/18 08:52; Admin Dose 81 MG; Start 10/14/18 at 14:00 Metoclopramide HCl (Reglan) 5 mg TID PO Last administered on 10/18/18 20:13; Admin Dose 5 MG; Start 10/13/18 at 13:00 Sucralfate (Carafate) 1 gm QID PO Last administered on 10/18/18 20:13; Admin Dose 1 GM; Start 10/13/18 at 13:00 Insulin Aspart (Novolog Insulin Pen) 5 unit WITH MEALS SC Last administered on 10/19/18 11:16; Admin Dose 5 UNIT; Start 10/13/18 at 18:00 Insulin Glargine (Lantus) 15 units DAILY@0800 SC Last administered on 10/19/18 11:20; Admin Dose 15 UNITS; Start 10/14/18 at 08:00 Lisinopril (Zestril) 10 mg DAILY PO Last administered on 10/18/18 08:52; Admin Dose 10 MG; Start 10/15/18 at 09:00 Morphine Sulfate (morphine) 6 mg Q4H PRN PO SEVERE PAIN LEVEL 7-10; Start 10/15/18 at 15:30 Paroxetine HCl (Paxil) 20 mg DAILY PO Last administered on 10/19/18 11:22; Admin Dose 20 MG; Start 10/17/18 at 09:00 Buspirone HCl (Buspar) 10 mg BID PO Last administered on 10/18/18 20:13; Admin Dose 10 MG; Start 10/16/18 at 21:00 Furosemide (Lasix) 20 mg DAILY IV Last administered on 10/18/18 08:52; Admin Dose 20 MG; Start 10/17/18 at 13:30 Metronidazole (Flagyl) 500 mg Q8 PO Last administered on 10/18/18 21:27; Admin Dose 500 MG; Start 10/18/18 at 14:00 Ciprofloxacin (Cipro) 500 mg BID@06,18 PO Last administered on 10/18/18 17:33; Admin Dose 500 MG; Start 10/18/18 at 18:00 Dextrose 1,000 ml @ 60 mls/hr [id number] IV Last administered on 10/19/18 00:01; Admin Dose 60 MLS/HR; Start 10/19/18 at 00:00 Insulin Aspart (Novolog Insulin Pen) (Adult SC Insulin - Moder... Q4 SC Last administered on 10/19/18 11:16; Admin Dose 6 UNIT; Start 10/19/18 at 01:00 AURORA ARZOLA NP Oct 19, 2018 11:40
[2018-10-19] MEDS: LISINOPRIL 10 MG TAB PO SCH (12:24)
[2018-10-19] MEDS: FUROSEMIDE 20 MG INJ IV SCH (12:24)
--- NOTE | 2018-10-19 15:31 | PN ---
Date/Time of Note Date/Time of Note DATE: 10/19/18 TIME: 15:28 Assessment/Plan VTE Prophylaxis Risk score (from Ns)>0 risk: 4 SCD applied (from Ns): Yes Pharmacological prophylaxis: NA/contraindicated Pharm contraindication: anticoag not tolerated Lines/Catheters IV C[facility] Type [facility]from [facility] Peripheral IV Urinary Cath still in place: No Assessment/Plan Hospital Course SUBJECTIVE: Complains of right abdominal wall pain. OBJECTIVE: Physical Exam General: Adequately build 62 year-old male lying in bed in no apparent distress. HEENT: Normocephalic, atraumatic. Eyes: Anicteric sclerae, conjunctivae clear. ENT: Nasal septum midline, oral mucosa moist. Neck supple, no JVD noticed. Respiratory: Bilaterally clear breath sounds. No use of accessory muscles of respiration. No adventitious breath sounds. Cardiovascular: S1, S2 heard. Regular rate and rhythm. Abdomen: Soft, nontender, and nondistended. Right upper quadrant drain with beltran guinous drainage. Genitourinary: Deferred. Extremities: No cyanosis, no clubbing, no edema. Peripheral pulses palpable. Neurologic: The patient is awake, alert, and oriented. Vitals & Labs per chart. ASSESSMENT & PLAN 63-year-old male with past medical history of diabetes mellitus, bipolar disorder, chronic back pain, and homelessness who came to the emergency room with multiple complaints. The patient was noticed to have underlying hyperglycemia. The patient did not have any evidence of DKA. The patient was admitted to inpatient setting for further treatment and evaluation. 1. -Hyperglycemia. -S/P insulin drip. -No evidence of any DKA. -Continue sliding scale insulin along with pre-meal insulin basal insulin. 2. Diabetes mellitus. -Uncontrolled. -Hemoglobin A1C >14. -Continue SSI along with pre-meal insulin and basal insulin. 3. Bipolar disorder. -Continue mood stabilizers. 4. Hyponatremia. -Etiology could be multifactorial including underlying hyperglycemia. -Correct hyperglycemia. -Resolved. 5. Essential hypertension. -Continue antihypertensives. 6. Dyslipidemia. -Continue statins. 7. Transaminitis. -Etiology unclear. -Hepatitis panel negative. 8. Anemia. -Microcytic and hypochromic. -Stool OB X1 positive. Repeat stool for OB negative. -Elevated LDH with CBC from admission showing nucleated RBC, concerning for hem olytic anemia. Obtain hematology consult. -Patient was noncompliant with status post hematology bowel preparation. -Status post hematology evaluation who conveyed that the patient's anemia is secondary to underlying iron deficiency. 9. Liver abscess. -Status post CT-guided aspiration on 10/09/2018. -Status post CT-guided aspiration and placement of a drain on 10/19/2018. -Fluid culture from 10/09/2018 showing Klebsiella pneumoniae. -Continue antimicrobials as per ID. 10. Cardiomyopathy. -Ejection fraction 40-45%. -Continue KRYSTYNA inhibitors. -Add beta-blockers if tolerated. 11. Subacute/late subacute lacunar infarct. -Continue aspirin and statins. 12. Homelessness. -sand worker consult. 13. Severe protein calorie malnutrition. -Dietary consult. -Dietary supplements. 14. Non-compliance with medications and diet. -Reinforced importance of compliance. 15. Bilateral infiltrates on chest x-ray. -Fluid versus pneumonia. -Continue antimicrobials. -Continue diuretics. 16. Fluids, electrolytes, and nutrition. -Carbohydrate controlled diet. 17. DVT prophylaxis. -SQ Lovenox. -Held because of worsening anemia. 18. Plan. -Continue antimicrobials as per ID. -Continue iron supplements. -Await studies from the latest IR guided drainage of the liver abscess. The patient was seen in collaboration with Dr. Arriaga. Result Diagram: 10/19/18 0616 10/19/18 0616 Results 24hrs Laboratory Tests Test 10/18/18 17:35 10/18/18 20:12 10/19/18 01:15 10/19/18 04:35 Bedside Glucose 124 168 313 H 198 Test 10/19/18 06:16 10/19/18 11:13 White Blood Count 12.8 H Red Blood Count 3.26 L Hemoglobin 7.5 L Hematocrit 24.6 L Mean Corpuscular Volume 75.5 L Mean Corpuscular 23.0 L Hemoglobin Mean Corpuscular 30.5 L Hemoglobin Concent Red Cell Distribution 15.8 H Width Platelet Count 635 H Mean Platelet Volume 9.4 Immature Granulocytes % 2.000 H Neutrophils % 75.0 Lymphocytes % 14.6 L Monocytes % 7.1 Eosinophils % 0.8 Basophils % 0.5 Nucleated Red Blood 0.0 Cells % Immature Granulocytes # 0.250 H Neutrophils # 9.6 H Lymphocytes # 1.9 Monocytes # 0.9 Eosinophils # 0.1 Basophils # 0.1 Nucleated Red Blood 0.0 Cells # Prothrombin Time 13.0 Prothrombin Time Ratio 1.0 INR International 0.97 Normalized Ratio Activated 32.0 Partial Thromboplast Time Sodium Level 136 Potassium Level 4.0 Chloride Level 94 L Carbon Dioxide Level 35 H Anion Gap 7 Blood Urea Nitrogen 18 Creatinine 0.47 L Est Glomerular Filtrat > 60 Rate mL/min Glucose Level 180 Calcium Level 8.6 Phosphorus Level 3.6 Magnesium Level 1.8 Bedside Glucose 272 H Exam/Review of Systems Exam Vitals Vital Signs Date Temp Pulse Resp B/P (MAP) Pulse Ox O2 O2 Flow FiO2 Time Delivery Rate 10/19/18 94 16 151/92 96 Room Air 10:47 (111) 10/19/18 98.4 10:12 Intake and Output 10/18/18 10/18/18 10/19/18 1414:59 22:59 06:59 IntakeIntake Total 430 ml 360 ml OutputOutput Total 315 ml BalanceBalance 430 ml 45 ml Results Results 24hrs Laboratory Tests Test 10/18/18 17:35 10/18/18 20:12 10/19/18 01:15 10/19/18 04:35 Bedside Glucose 124 168 313 H 198 Test 10/19/18 06:16 10/19/18 11:13 White Blood Count 12.8 H Red Blood Count 3.26 L Hemoglobin 7.5 L Hematocrit 24.6 L Mean Corpuscular Volume 75.5 L Mean Corpuscular 23.0 L Hemoglobin Mean Corpuscular 30.5 L Hemoglobin Concent Red Cell Distribution 15.8 H Width Platelet Count 635 H Mean Platelet Volume 9.4 Immature Granulocytes % 2.000 H Neutrophils % 75.0 Lymphocytes % 14.6 L Monocytes % 7.1 Eosinophils % 0.8 Basophils % 0.5 Nucleated Red Blood 0.0 Cells % Immature Granulocytes # 0.250 H Neutrophils # 9.6 H Lymphocytes # 1.9 Monocytes # 0.9 Eosinophils # 0.1 Basophils # 0.1 Nucleated Red Blood 0.0 Cells # Prothrombin Time 13.0 Prothrombin Time Ratio 1.0 INR International 0.97 Normalized Ratio Activated 32.0 Partial Thromboplast Time Sodium Level 136 Potassium Level 4.0 Chloride Level 94 L Carbon Dioxide Level 35 H Anion Gap 7 Blood Urea Nitrogen 18 Creatinine 0.47 L Est Glomerular Filtrat > 60 Rate mL/min Glucose Level 180 Calcium Level 8.6 Phosphorus Level 3.6 Magnesium Level 1.8 Bedside Glucose 272 H Medications Medication Current Medications Gabapentin (Neurontin) 300 mg TID PO Last administered on 10/19/18 13:13; Admin Dose 300 MG; Start 10/02/18 at 09:00 Ondansetron HCl (Zofran Inj) 4 mg Q6H PRN IV NAUSEA AND/OR VOMITING; Start 10/02/18 at 02:00 Albuterol (Proventil 0.083% (Neb)) 2.5 mg Q2H RESP THERAPY PRN NEB SHORTNESS OF BREATH; Start 10/02/18 at 02:00 Acetaminophen (Tylenol Liquid) 650 mg Q6H PRN PO PAIN LEVEL 1-3 OR FEVER Last administered on 10/14/18 07:57; Admin Dose 650 MG; Start 10/02/18 at 02:00 Menthol/Methyl Salicylate (Memo Erazo) 1 applic TID PRN TOP pain; Start 10/02/18 at 06:30 Tramadol HCl (Ultram) 50 mg Q6H PRN PO MODERATE PAIN LEVEL 4-6 Last administered on 10/19/18 10:27; Admin Dose 50 MG; Start 10/02/18 at 11:00 Potassium Chloride (Potassium Chloride Pwd/Soln) 20 meq PER PROTOCOL PRN PO POTASSIUM REPLACEMENT PROTOCOL; Start 10/02/18 at 11:30 Potassium Chloride (Potassium Chloride Pwd/Soln) 30 meq PER PROTOCOL PRN PO POTASSIUM REPLACEMENT PROTOCOL; Start 10/02/18 at 11:30 Potassium Chloride (Potassium Chloride Pwd/Soln) 40 meq PER PROTOCOL PRN PO POTASSIUM REPLACEMENT PROTOCOL; Start 10/02/18 at 11:30 Miscellaneous Information 1 ea NOTE XX ; Start 10/02/18 at 22:00 Glucose (Glutose) 15 gm Q15M PRN PO DECREASED GLUCOSE; Start 10/02/18 at 22:00 Glucose (Glutose) 22.5 gm Q15M PRN PO DECREASED GLUCOSE; Start 10/02/18 at 22:00 Dextrose (D50w Syringe) 25 ml Q15M PRN IV DECREASED GLUCOSE Last administered on 10/12/18 20:44; Admin Dose 25 ML; Start 10/02/18 at 22:00 Dextrose (D50w Syringe) 50 ml Q15M PRN IV DECREASED GLUCOSE Last administered on 10/12/18 18:15; Admin Dose 50 ML; Start 10/02/18 at 22:00 Glucagon (Glucagen) 1 mg Q15M PRN IM DECREASED GLUCOSE; Start 10/02/18 at 22:00 Glucose (Glutose) 15 gm Q15M PRN BUCCAL DECREASED GLUCOSE; Start 10/02/18 at 22:00 Diagnostic Test (Pha) (Accu-Chek) 1 ea AC MEALS AND BEDTIME XX Last administered on 10/17/18 17:03; Admin Dose 1 EA; Start 10/03/18 at 17:05 Calcium Carbonate (Tums) 500 mg Q4 PRN PO epigastric pain Last administered on 10/16/18 11:32; Admin Dose 500 MG; Start 10/05/18 at 01:30 Pantoprazole (Protonix Tab) 40 mg DAILY@06 PO Last administered on 10/18/18 06:17; Admin Dose 40 MG; Start 10/06/18 at 06:00 Lactobacillus Acidophilus/ Rhamnosus (Culturelle) 1 cap BID PO Last administered on 10/18/18 20:13; Admin Dose 1 CAP; Start 10/08/18 at 21:00 Acetaminophen/ Hydrocodone Bitart ([place] (10/325)) 1 tab Q6H PRN PO SEVERE PAIN LEVEL 7-10 Last administered on 10/19/18 11:33; Admin Dose 1 TAB; Start 10/08/18 at 14:30 Nicotine (Nicoderm 14 Mg/ 24hr) 1 patch DAILY TRANSDERM Last administered on 10/18/18 08:48; Admin Dose 1 PATCH; Start 10/08/18 at 14:30 Loperamide HCl (Imodium Cap) 2 mg QID PRN PO DIARRHEA; Start 10/09/18 at 12:11 Atorvastatin Calcium (Lipitor) 20 mg QHS PO Last administered on 10/18/18 20:13; Admin Dose 20 MG; Start 10/15/18 at 21:00 Hydrocortisone (Anusol-Hc Supp) 25 mg TID PRN [place] HEMORROID PAIN/ITCHING; Start 10/09/18 at 13:30 Potassium Chloride (Potassium Chloride Pwd/Soln) 20 meq DAILY PO Last administered on 10/18/18 08:59; Admin Dose 20 MEQ; Start 10/09/18 at 13:30 Enoxaparin Sodium (Lovenox) 40 mg DAILY SC Last administered on 10/18/18 08:52; Admin Dose 40 MG; Start 10/14/18 at 09:00 Aspirin (Halfprin) 81 mg DAILY PO Last administered on 10/18/18 08:52; Admin Dose 81 MG; Start 10/14/18 at 14:00 Metoclopramide HCl (Reglan) 5 mg TID PO Last administered on 10/19/18 13:13; Admin Dose 5 MG; Start 10/13/18 at 13:00 Sucralfate (Carafate) 1 gm QID PO Last administered on 10/19/18 13:13; Admin Dose 1 GM; Start 10/13/18 at 13:00 Insulin Aspart (Novolog Insulin Pen) 5 unit WITH MEALS SC Last administered on 10/19/18 11:16; Admin Dose 5 UNIT; Start 10/13/18 at 18:00 Insulin Glargine (Lantus) 15 units DAILY@0800 SC Last administered on 10/19/18 11:20; Admin Dose 15 UNITS; Start 10/14/18 at 08:00 Lisinopril (Zestril) 10 mg DAILY PO Last administered on 10/19/18 12:24; Admin Dose 10 MG; Start 10/15/18 at 09:00 Morphine Sulfate (morphine) 6 mg Q4H PRN PO SEVERE PAIN LEVEL 7-10; Start 10/15/18 at 15:30 Paroxetine HCl (Paxil) 20 mg DAILY PO Last administered on 10/19/18 11:22; Admin Dose 20 MG; Start 10/17/18 at 09:00 Buspirone HCl (Buspar) 10 mg BID PO Last administered on 10/18/18 20:13; Admin Dose 10 MG; Start 10/16/18 at 21:00 Furosemide (Lasix) 20 mg DAILY IV Last administered on 10/19/18 12:24; Admin Dose 20 MG; Start 10/17/18 at 13:30 Metronidazole (Flagyl) 500 mg Q8 PO Last administered on 10/19/18 13:13; Admin Dose 500 MG; Start 10/18/18 at 14:00 Ciprofloxacin (Cipro) 500 mg BID@06,18 PO Last administered on 10/18/18 17:33; Admin Dose 500 MG; Start 10/18/18 at 18:00 Insulin Aspart (Novolog Insulin Pen) (Adult SC Insulin - Moder... Q4 SC Last administered on 10/19/18at 11:16; Admin Dose 6 UNIT; Start 10/19/18 at 01:00 HERRERA SALDAÑA NP Oct 19, 2018 15:31
[2018-10-19] MEDS: morphine LIQ (10 MG/5 ML) CUP PO PRN (17:12)
[2018-10-19] MEDS: ATORVASTATIN 20 MG TAB PO SCH (20:38)
[2018-10-20] MEDS: Insulin NOVOLOG SS MODERATE Algorithm(NPO/TPN/ENTERAL FEEDS) SC SCH ×6 (01:00→20:40)
[2018-10-20 02:50] VITALS: BP 112/62; PULSE 108; RESP 18
[2018-10-20] MEDS: CIPROFLOXACIN 500 MG TAB PO SCH ×3 (05:09→20:40)
[2018-10-20] MEDS: metroNIDAZOLE 500 MG TAB PO SCH ×3 (05:09→20:41)
[2018-10-20] MEDS: PANTOPRAZOLE (EC) 40 MG TAB PO SCH (05:09)
[2018-10-20 08:00] VITALS: BP 166/89; PULSE 103; RESP 18
[2018-10-20] MEDS: ACCU-CHEK XX SCH ×4 (08:15→20:41)
[2018-10-20] MEDS: ASPIRIN (EC) 81 MG TAB PO SCH (08:47)
[2018-10-20] MEDS: POTASSIUM CHLORIDE 20 MEQ POWDER FOR ORAL SOLN PO SCH (08:47)
[2018-10-20] MEDS: METOCLOPRAMIDE 5 MG TAB PO SCH ×3 (08:47→20:40)
[2018-10-20] MEDS: PAROXETINE 20 MG TAB PO SCH (08:47)
[2018-10-20] MEDS: GABAPENTIN 300 MG CAP PO SCH ×3 (08:47→20:39)
[2018-10-20] MEDS: LISINOPRIL 10 MG TAB PO SCH (08:47)
[2018-10-20] MEDS: SUCRALFATE 1 GM TAB PO SCH ×4 (08:47→20:40)
[2018-10-20] MEDS: BUSPIRONE 5 MG TAB PO SCH ×2 (08:48→20:39)
[2018-10-20] MEDS: NICOTINE (14 MG/24 HR) PATCH TRANSDERM SCH (08:48)
[2018-10-20] MEDS: LACTOBACILLUS RHAMNOSUS CAP PO SCH ×2 (08:48→20:39)
[2018-10-20] MEDS: FUROSEMIDE 20 MG INJ IV SCH (08:48)
[2018-10-20] MEDS: INSULIN ASPART [NOVOLOG] 3 ML PEN SC SCH ×3 (08:54→16:40)
[2018-10-20] MEDS: ENOXAPARIN 40 MG/0.4 ML SYG SC SCH (08:55)
[2018-10-20] MEDS: INSULIN GLARGINE [LANTus] (100 UNITS/ML) SYG SC SCH (08:56)
--- NOTE | 2018-10-20 12:44 | CONS ---
Assessment/Plan Assessment/Plan Hospital Course (Demo Recall) No acute events overnight per report patient is sleeping no fevers he has a minimal drainage from his accordion drain Microbiology: Abdominal fluid culture grew Klebsiella pneumonia, blood and urine culture remain negative CT abdomen 10/16/18: Complex cystic areas within the liver compatible with abscesses, with the largest within the anterior segment of the right lobe measuring 4.1 x 4.8 cm. Bilateral moderate pleural effusions with underlying atelectasis/consolidations. Moderately distended stomach. Moderate retained stool within the colon. Markedly distended bladder with mild wall thickening suggestive of cystitis. Clinically correlate. Diffuse intra-abdominal stranding and mild free fluid. Antimicrobials: Cipro Flagyl Physical examination: Well-developed elderly -Armenian man in no distress. Head atraumatic normocephalic neck is supple chest rise symmetrical breath sounds diminished bases heart S1-S2 abdomen obese soft bowel sounds present extremities without cyanosis Assessment: 1. S/p sepsis 2. Liver abscesses ==> s/p repeated IR guided aspiration with catheter placement 3. S/p healthcare associated pneumonia 4. Diabetes, poorly controlled 5. Hypertension 6. Bipolar disorder and homelessness 7. Poss retention/cystitis 8. Constipation 9. Anemia/Beta Thalassemia Plan: Clinically stable, continue abx, f/u fluid cx Consultation Date/Type/Reason Admit Date/Time Oct 02, 2018 at 00:05 Initial Consult Date 10/04/18 Type of Consult id Requesting Provider: HERRERA SALDAÑA NP Date/Time of Note DATE: 10/20/18 TIME: 12:43 Exam/Review of Systems Exam Vitals Vital Signs Date Temp Pulse Resp B/P (MAP) Pulse Ox O2 O2 Flow FiO2 Time Delivery Rate 10/20/18 98.3 103 18 166/89 98 08:00 (114) 10/19/18 Room Air 10:47 Intake and Output 10/19/18 10/19/18 10/20/18 1515:00 23:00 07:00 IntakeIntake Total 1700 ml 660 ml 200 ml OutputOutput Total 3110 ml 1400 ml 605 ml BalanceBalance -1410 ml -740 ml -405 ml Results Result Diagram: 10/20/18 0604 10/20/18 0604 Results 24hrs Laboratory Tests Test 10/19/18 17:07 10/19/18 20:37 10/20/18 01:41 10/20/18 05:07 Bedside Glucose 170 101 125 255 H Test 10/20/18 06:04 10/20/18 08:11 10/20/18 11:57 White Blood Count 11.6 H Red Blood Count 3.35 L Hemoglobin 7.6 L Hematocrit 25.5 L Mean Corpuscular Volume 76.1 L Mean Corpuscular 22.7 L Hemoglobin Mean Corpuscular 29.8 L Hemoglobin Concent Red Cell Distribution 15.8 H Width Platelet Count 628 H Mean Platelet Volume 8.8 Immature Granulocytes % 2.200 H Neutrophils % 77.5 H Lymphocytes % 13.9 L Monocytes % 5.2 Eosinophils % 0.8 Basophils % 0.4 Nucleated Red Blood 0.0 Cells % Immature Granulocytes # 0.260 H Neutrophils # 9.0 H Lymphocytes # 1.6 Monocytes # 0.6 Eosinophils # 0.1 Basophils # 0.1 Nucleated Red Blood 0.0 Cells # Sodium Level 134 L Potassium Level 4.2 Chloride Level 92 L Carbon Dioxide Level 35 H Anion Gap 7 Blood Urea Nitrogen 17 Creatinine 0.52 L Est Glomerular Filtrat > 60 Rate mL/min Glucose Level 226 H Calcium Level 8.6 Phosphorus Level 4.0 Magnesium Level 1.8 Bedside Glucose 188 149 Medications Medication Current Medications Gabapentin (Neurontin) 300 mg TID PO Last administered on 10/20/18at 12:18; Admin Dose 300 MG; Start 10/02/18 at 09:00 Ondansetron HCl (Zofran Inj) 4 mg Q6H PRN IV NAUSEA AND/OR VOMITING; Start 10/02/18 at 02:00 Albuterol (Proventil 0.083% (Neb)) 2.5 mg Q2H RESP THERAPY PRN NEB SHORTNESS OF BREATH; Start 10/02/18 at 02:00 Acetaminophen (Tylenol Liquid) 650 mg Q6H PRN PO PAIN LEVEL 1-3 OR FEVER Last administered on 10/14/18at 07:57; Admin Dose 650 MG; Start 10/02/18 at 02:00 Menthol/Methyl Salicylate (Memo Erazo) 1 applic TID PRN TOP pain; Start 10/02/18 at 06:30 Tramadol HCl (Ultram) 50 mg Q6H PRN PO MODERATE PAIN LEVEL 4-6 Last administered on 10/19/18at 10:27; Admin Dose 50 MG; Start 10/02/18 at 11:00 Potassium Chloride (Potassium Chloride Pwd/Soln) 20 meq PER PROTOCOL PRN PO POTASSIUM REPLACEMENT PROTOCOL; Start 10/02/18 at 11:30 Potassium Chloride (Potassium Chloride Pwd/Soln) 30 meq PER PROTOCOL PRN PO POTASSIUM REPLACEMENT PROTOCOL; Start 10/02/18 at 11:30 Potassium Chloride (Potassium Chloride Pwd/Soln) 40 meq PER PROTOCOL PRN PO POTASSIUM REPLACEMENT PROTOCOL; Start 10/02/18 at 11:30 Miscellaneous Information 1 ea NOTE XX ; Start 10/02/18 at 22:00 Glucose (Glutose) 15 gm Q15M PRN PO DECREASED GLUCOSE; Start 10/02/18 at 22:00 Glucose (Glutose) 22.5 gm Q15M PRN PO DECREASED GLUCOSE; Start 10/02/18 at 22:00 Dextrose (D50w Syringe) 25 ml Q15M PRN IV DECREASED GLUCOSE Last administered on 10/12/18at 20:44; Admin Dose 25 ML; Start 10/02/18 at 22:00 Dextrose (D50w Syringe) 50 ml Q15M PRN IV DECREASED GLUCOSE Last administered on 10/12/18at 18:15; Admin Dose 50 ML; Start 10/02/18 at 22:00 Glucagon (Glucagen) 1 mg Q15M PRN IM DECREASED GLUCOSE; Start 10/02/18 at 22:00 Glucose (Glutose) 15 gm Q15M PRN BUCCAL DECREASED GLUCOSE; Start 10/02/18 at 22:00 Diagnostic Test (Pha) (Accu-Chek) 1 ea AC MEALS AND BEDTIME XX Last administered on 10/20/18at 12:06; Admin Dose 1 EA; Start 10/03/18 at 17:05 Calcium Carbonate (Tums) 500 mg Q4 PRN PO epigastric pain Last administered on 10/16/18at 11:32; Admin Dose 500 MG; Start 10/05/18 at 01:30 Pantoprazole (Protonix Tab) 40 mg DAILY@06 PO Last administered on 10/20/18 05:09; Admin Dose 40 MG; Start 10/06/18 at 06:00 Lactobacillus Acidophilus/ Rhamnosus (Culturelle) 1 cap BID PO Last adminis tered on 10/20/18at 08:48; Admin Dose 1 CAP; Start 10/08/18 at 21:00 Acetaminophen/ Hydrocodone Bitart ([place] (10/325)) 1 tab Q6H PRN PO SEVERE PAIN LEVEL 7-10 Last administered on 10/19/18 11:33; Admin Dose 1 TAB; Start 10/08/18 at 14:30 Nicotine (Nicoderm 14 Mg/ 24hr) 1 patch DAILY TRANSDERM Last administered on 10/20/18 08:48; Admin Dose 1 PATCH; Start 10/08/18 at 14:30 Loperamide HCl (Imodium Cap) 2 mg QID PRN PO DIARRHEA; Start 10/09/18 at 12:11 Atorvastatin Calcium (Lipitor) 20 mg QHS PO Last administered on 10/19/18 20:38; Admin Dose 20 MG; Start 10/15/18 at 21:00 Hydrocortisone (Anusol-Hc Supp) 25 mg TID PRN SC HEMORROID PAIN/ITCHING; Start 10/09/18 at 13:30 Potassium Chloride (Potassium Chloride Pwd/Soln) 20 meq DAILY PO Last administered on 10/20/18 08:47; Admin Dose 20 MEQ; Start 10/09/18 at 13:30 Enoxaparin Sodium (Lovenox) 40 mg DAILY SC Last administered on 10/20/18 08:55; Admin Dose 40 MG; Start 10/14/18 at 09:00 Aspirin (Halfprin) 81 mg DAILY PO Last administered on 10/20/18 08:47; Admin Dose 81 MG; Start 10/14/18 at 14:00 Metoclopramide HCl (Reglan) 5 mg TID PO Last administered on 10/20/18 12:18; Admin Dose 5 MG; Start 10/13/18 at 13:00 Sucralfate (Carafate) 1 gm QID PO Last administered on 10/20/18 12:18; Admin Dose 1 GM; Start 10/13/18 at 13:00 Insulin Aspart (Novolog Insulin Pen) 5 unit WITH MEALS SC Last administered on 10/20/18 12:02; Admin Dose 5 UNIT; Start 10/13/18 at 18:00 Insulin Glargine (Lantus) 15 units DAILY@0800 SC Last administered on 10/20/18 08:56; Admin Dose 15 UNITS; Start 10/14/18 at 08:00 Lisinopril (Zestril) 10 mg DAILY PO Last administered on 10/20/18 08:47; Admin Dose 10 MG; Start 10/15/18 at 09:00 Morphine Sulfate (morphine) 6 mg Q4H PRN PO SEVERE PAIN LEVEL 7-10 Last administered on 10/19/18 17:12; Admin Dose 6 MG; Start 10/15/18 at 15:30 Paroxetine HCl (Paxil) 20 mg DAILY PO Last administered on 10/20/18 08:47; Admin Dose 20 MG; Start 10/17/18 at 09:00 Buspirone HCl (Buspar) 10 mg BID PO Last administered on 10/20/18 08:48; Admin Dose 10 MG; Start 10/16/18 at 21:00 Furosemide (Lasix) 20 mg DAILY IV Last administered on 10/20/18 08:48; Admin Dose 20 MG; Start 10/17/18 at 13:30 Metronidazole (Flagyl) 500 mg Q8 PO Last administered on 10/20/18 12:18; Admin Dose 500 MG; Start 10/18/18 at 14:00 Ciprofloxacin (Cipro) 500 mg BID@06,18 PO Last administered on 10/20/18 05:09; Admin Dose 500 MG; Start 10/18/18 at 18:00 Insulin Aspart (Novolog Insulin Pen) (Adult SC Insulin - Moder... Q4 SC Last administered on 10/20/18 12:03; Admin Dose 2 UNIT; Start 10/19/18 at 01:00 AURORA ARZOLA NP Oct 20, 2018 12:44
[2018-10-20 14:00] VITALS: BP 109/59; PULSE 104; RESP 18
[2018-10-20] MEDS ORDERED: VITAMIN A & D 5 GM OINT PACKET TOP ONE (14:14)
--- NOTE | 2018-10-20 14:17 | PN ---
Date/Time of Note Date/Time of Note DATE: 10/20/18 TIME: 14:16 Assessment/Plan VTE Prophylaxis Risk score (from Ns)>0 risk: 4 SCD applied (from [facility] [place]): No SCD contraindicated: patient refusal Pharmacological prophylaxis: NA/contraindicated Pharm contraindication: anticoag not tolerated Lines/Catheters IV Catheter Type (from [facility] Saline Lock Urinary Cath still in place: No Assessment/Plan Hospital Course SUBJECTIVE: Complains of right abdominal wall pain. OBJECTIVE: Physical Exam General: Adequately build 62 year-old male lying in bed in no apparent distress. HEENT: Normocephalic, atraumatic. Eyes: Anicteric sclerae, conjunctivae clear. ENT: Nasal septum midline, oral mucosa moist. Neck supple, no JVD noticed. Respiratory: Bilaterally clear breath sounds. No use of accessory muscles of respiration. No adventitious breath sounds. Cardiovascular: S1, S2 heard. Regular rate and rhythm. Abdomen: Soft, nontender, and nondistended. Right upper quadrant drain with sanguinous drainage. Genitourinary: Deferred. Extremities: No cyanosis, no clubbing, no edema. Peripheral pulses palpable. Neurologic: The patient is awake, alert, and oriented. Vitals & Labs per chart. ASSESSMENT & PLAN 63-year-old male with past medical history of diabetes mellitus, bipolar disorder, chronic back pain, and homelessness who came to the emergency room with multiple complaints. The patient was noticed to have underlying hyperglycemia. The patient did not have any evidence of DKA. The patient was admitted to inpatient setting for further treatment and evaluation. 1. -Hyperglycemia. -S/P insulin drip. -No evidence of any DKA. -Continue sliding scale insulin along with pre-meal insulin basal insulin. 2. Diabetes mellitus. -Uncontrolled. -Hemoglobin A1C >14. -Continue SSI along with pre-meal insulin and basal insulin. 3. Bipolar disorder. -Continue mood stabilizers. 4. Hyponatremia. -Etiology could be multifactorial including underlying hyperglycemia. -Correct hyperglycemia. -Resolved. 5. Essential hypertension. -Continue antihypertensives. 6. Dyslipidemia. -Continue statins. 7. Transaminitis. -Etiology unclear. -Hepatitis panel negative. 8. Anemia. -Microcytic and hypochromic. -Stool OB X1 positive. Repeat stool for OB negative. -Elevated LDH with CBC from admission showing nucleated RBC, concerning for hemolytic anemia. Obtain hematology consult. -Patient was noncompliant with status post hematology bowel preparation. -Status post hematology evaluation who conveyed that the patient's anemia is secondary to underlying iron deficiency. 9. Liver abscess. -Status post CT-guided aspiration on 10/09/2018. -Status post CT-guided aspiration and placement of a drain on 10/19/2018. -Fluid culture from 10/09/2018 showing Klebsiella pneumoniae. -Latest fluid culture showing Gram negative rods. -Continue antimicrobials as per ID. 10. Cardiomyopathy. -Ejection fraction 40-45%. -Continue KRYSTYNA inhibitors. -Add beta-blockers if tolerated. 11. Subacute/late subacute lacunar infarct. -Continue aspirin and statins. 12. Homelessness. -curtain worker consult. 13. Severe protein calorie malnutrition. -Dietary consult. -Dietary supplements. 14. Non-compliance with medications and diet. -Reinforced importance of compliance. 15. Bilateral infiltrates on chest x-ray. -Fluid versus pneumonia. -Continue antimicrobials. -Continue diuretics. 16. Fluids, electrolytes, and nutrition. -Carbohydrate controlled diet. 17. DVT prophylaxis. -SQ Lovenox. -Held because of worsening anemia. 18. Plan. -Continue antimicrobials as per ID. -Continue iron supplements. -Await studies from the latest IR guided drainage of the liver abscess. The patient was seen in collaboration with Dr. Arriaga. Result Diagram: 10/20/18 0604 10/20/18 0604 Results 24hrs Laboratory Tests Test 10/19/18 17:07 10/19/18 20:37 10/20/18 01:41 10/20/18 05:07 Bedside Glucose 170 101 125 255 H Test 10/20/18 06:04 10/20/18 08:11 10/20/18 11:57 White Blood Count 11.6 H Red Blood Count 3.35 L Hemoglobin 7.6 L Hematocrit 25.5 L Mean Corpuscular Volume 76.1 L Mean Corpuscular 22.7 L Hemoglobin Mean Corpuscular 29.8 L Hemoglobin Concent Red Cell Distribution 15.8 H Width Platelet Count 628 H Mean Platelet Volume 8.8 Immature Granulocytes % 2.200 H Neutrophils % 77.5 H Lymphocytes % 13.9 L Monocytes % 5.2 Eosinophils % 0.8 Basophils % 0.4 Nucleated Red Blood 0.0 Cells % Immature Granulocytes # 0.260 H Neutrophils # 9.0 H Lymphocytes # 1.6 Monocytes # 0.6 Eosinophils # 0.1 Basophils # 0.1 Nucleated Red Blood 0.0 Cells # Sodium Level 134 L Potassium Level 4.2 Chloride Level 92 L Carbon Dioxide Level 35 H Anion Gap 7 Blood Urea Nitrogen 17 Creatinine 0.52 L Est Glomerular Filtrat > 60 Rate mL/min Glucose Level 226 H Calcium Level 8.6 Phosphorus Level 4.0 Magnesium Level 1.8 Bedside Glucose 188 149 Exam/Review of Systems Exam Vitals Vital Signs Date Temp Pulse Resp B/P (MAP) Pulse Ox O2 O2 Flow FiO2 Time Delivery Rate 10/20/18 98.3 103 18 166/89 98 08:00 (114) 10/19/18 Room Air 10:47 Intake and Output 10/19/18 10/19/18 10/20/18 1515:00 23:00 07:00 IntakeIntake Total 1700 ml 660 ml 200 ml OutputOutput Total 3110 ml 1400 ml 605 ml BalanceBalance -1410 ml -740 ml -405 ml Results Results 24hrs Laboratory Tests Test 10/19/18 17:07 10/19/18 20:37 10/20/18 01:41 10/20/18 05:07 Bedside Glucose 170 101 125 255 H Test 10/20/18 06:04 10/20/18 08:11 10/20/18 11:57 White Blood Count 11.6 H Red Blood Count 3.35 L Hemoglobin 7.6 L Hematocrit 25.5 L Mean Corpuscular Volume 76.1 L Mean Corpuscular 22.7 L Hemoglobin Mean Corpuscular 29.8 L Hemoglobin Concent Red Cell Distribution 15.8 H Width Platelet Count 628 H Mean Platelet Volume 8.8 Immature Granulocytes % 2.200 H Neutrophils % 77.5 H Lymphocytes % 13.9 L Monocytes % 5.2 Eosinophils % 0.8 Basophils % 0.4 Nucleated Red Blood 0.0 Cells % Immature Granulocytes # 0.260 H Neutrophils # 9.0 H Lymphocytes # 1.6 Monocytes # 0.6 Eosinophils # 0.1 Basophils # 0.1 Nucleated Red Blood 0.0 Cells # Sodium Level 134 L Potassium Level 4.2 Chloride Level 92 L Carbon Dioxide Level 35 H Anion Gap 7 Blood Urea Nitrogen 17 Creatinine 0.52 L Est Glomerular Filtrat > 60 Rate mL/min Glucose Level 226 H Calcium Level 8.6 Phosphorus Level 4.0 Magnesium Level 1.8 Bedside Glucose 188 149 Medications Medication Current Medications Gabapentin (Neurontin) 300 mg TID PO Last administered on 10/20/18 12:18; Admin Dose 300 MG; Start 10/02/18 at 09:00 Ondansetron HCl (Zofran Inj) 4 mg Q6H PRN IV NAUSEA AND/OR VOMITING; Start 10/02/18 at 02:00 Albuterol (Proventil 0.083% (Neb)) 2.5 mg Q2H RESP THERAPY PRN NEB SHORTNESS OF BREATH; Start 10/02/18 at 02:00 Acetaminophen (Tylenol Liquid) 650 mg Q6H PRN PO PAIN LEVEL 1-3 OR FEVER Last administered on 10/14/18 07:57; Admin Dose 650 MG; Start 10/02/18 at 02:00 Menthol/Methyl Salicylate (Memo Erazo) 1 applic TID PRN TOP pain; Start 10/02/18 at 06:30 Tramadol HCl (Ultram) 50 mg Q6H PRN PO MODERATE PAIN LEVEL 4-6 Last admi nistered on 10/19/18at 10:27; Admin Dose 50 MG; Start 10/02/18 at 11:00 Potassium Chloride (Potassium Chloride Pwd/Soln) 20 meq PER PROTOCOL PRN PO POTASSIUM REPLACEMENT PROTOCOL; Start 10/02/18 at 11:30 Potassium Chloride (Potassium Chloride Pwd/Soln) 30 meq PER PROTOCOL PRN PO POTASSIUM REPLACEMENT PROTOCOL; Start 10/02/18 at 11:30 Potassium Chloride (Potassium Chloride Pwd/Soln) 40 meq PER PROTOCOL PRN PO POTASSIUM REPLACEMENT PROTOCOL; Start 10/02/18 at 11:30 Miscellaneous Information 1 ea NOTE XX ; Start 10/02/18 at 22:00 Glucose (Glutose) 15 gm Q15M PRN PO DECREASED GLUCOSE; Start 10/02/18 at 22:00 Glucose (Glutose) 22.5 gm Q15M PRN PO DECREASED GLUCOSE; Start 10/02/18 at 22:00 Dextrose (D50w Syringe) 25 ml Q15M PRN IV DECREASED GLUCOSE Last administered on 10/12/18 20:44; Admin Dose 25 ML; Start 10/02/18 at 22:00 Dextrose (D50w Syringe) 50 ml Q15M PRN IV DECREASED GLUCOSE Last administered on 10/12/18 18:15; Admin Dose 50 ML; Start 10/02/18 at 22:00 Glucagon (Glucagen) 1 mg Q15M PRN IM DECREASED GLUCOSE; Start 10/02/18 at 22:00 Glucose (Glutose) 15 gm Q15M PRN BUCCAL DECREASED GLUCOSE; Start 10/02/18 at 22:00 Diagnostic Test (Pha) (Accu-Chek) 1 ea AC MEALS AND BEDTIME XX Last administered on 10/20/18 12:06; Admin Dose 1 EA; Start 10/03/18 at 17:05 Calcium Carbonate (Tums) 500 mg Q4 PRN PO epigastric pain Last administered on 10/16/18 11:32; Admin Dose 500 MG; Start 10/05/18 at 01:30 Pantoprazole (Protonix Tab) 40 mg DAILY@06 PO Last administered on 10/20/18 05: 09; Admin Dose 40 MG; Start 10/06/18 at 06:00 Lactobacillus Acidophilus/ Rhamnosus (Culturelle) 1 cap BID PO Last administered on 10/20/18 08:48; Admin Dose 1 CAP; Start 10/08/18 at 21:00 Acetaminophen/ Hydrocodone Bitart ([place] (10/325)) 1 tab Q6H PRN PO SEVERE PAIN LEVEL 7-10 Last administered on 10/19/18 11:33; Admin Dose 1 TAB; Start 10/08/18 at 14:30 Nicotine (Nicoderm 14 Mg/ 24hr) 1 patch DAILY TRANSDERM Last administered on 10/20/18 08:48; Admin Dose 1 PATCH; Start 10/08/18 at 14:30 Loperamide HCl (Imodium Cap) 2 mg QID PRN PO DIARRHEA; Start 10/09/18 at 12:11 Atorvastatin Calcium (Lipitor) 20 mg QHS PO Last administered on 10/19/18 20:38; Admin Dose 20 MG; Start 10/15/18 at 21:00 Hydrocortisone (Anusol-Hc Supp) 25 mg TID PRN DC HEMORROID PAIN/ITCHING; Start 10/09/18 at 13:30 Potassium Chloride (Potassium Chloride Pwd/Soln) 20 meq DAILY PO Last administered on 10/20/18 08:47; Admin Dose 20 MEQ; Start 10/09/18 at 13:30 Enoxaparin Sodium (Lovenox) 40 mg DAILY SC Last administered on 10/20/18 08:55; Admin Dose 40 MG; Start 10/14/18 at 09:00 Aspirin (Halfprin) 81 mg DAILY PO Last administered on 10/20/18 08:47; Admin Dose 81 MG; Start 10/14/18 at 14:00 Metoclopramide HCl (Reglan) 5 mg TID PO Last administered on 10/20/18 12:18; Admin Dose 5 MG; Start 10/13/18 at 13:00 Sucralfate (Carafate) 1 gm QID PO Last administered on 10/20/18 12:18; Admin Dose 1 GM; Start 10/13/18 at 13:00 Insulin Aspart (Novolog Insulin Pen) 5 unit WITH MEALS SC Last administered on 10/20/18 12:02; Admin Dose 5 UNIT; Start 10/13/18 at 18:00 Insulin Glargine (Lantus) 15 units DAILY@0800 SC Last administered on 10/20/18 08:56; Admin Dose 15 UNITS; Start 10/14/18 at 08:00 Lisinopril (Zestril) 10 mg DAILY PO Last administered on 10/20/18 08:47; Admin Dose 10 MG; Start 10/15/18 at 09:00 Morphine Sulfate (morphine) 6 mg Q4H PRN PO SEVERE PAIN LEVEL 7-10 Last administered on 10/19/18 17:12; Admin Dose 6 MG; Start 10/15/18 at 15:30 Paroxetine HCl (Paxil) 20 mg DAILY PO Last administered on 10/20/18 08:47; Admin Dose 20 MG; Start 10/17/18 at 09:00 Buspirone HCl (Buspar) 10 mg BID PO Last administered on 10/20/18 08:48; Admin Dose 10 MG; Start 10/16/18 at 21:00 Furosemide (Lasix) 20 mg DAILY IV Last administered on 10/20/18 08:48; Admin Dose 20 MG; Start 10/17/18 at 13:30 Metronidazole (Flagyl) 500 mg Q8 PO Last administered on 10/20/18 12:18; Admin Dose 500 MG; Start 10/18/18 at 14:00 Ciprofloxacin (Cipro) 500 mg BID@06,18 PO Last administered on 10/20/18at 05:09; Admin Dose 500 MG; Start 10/18/18 at 18:00 Insulin Aspart (Novolog Insulin Pen) (Adult SC Insulin - Moder... Q4 SC Last administered on 10/20/18at 12:03; Admin Dose 2 UNIT; Start 10/19/18 at 01:00 HERRERA SALDAÑA NP Oct 20, 2018 14:17
[2018-10-20] MEDS: HYDROCODONE/APAP (10/325) TAB PO PRN (17:57)
[2018-10-20 20:34] VITALS: BP 127/76; PULSE 99; RESP 18
[2018-10-20] MEDS: ATORVASTATIN 20 MG TAB PO SCH (20:39)
[2018-10-21] MEDS: Insulin NOVOLOG SS MODERATE Algorithm(NPO/TPN/ENTERAL FEEDS) SC SCH ×6 (01:00→20:14)
[2018-10-21 01:50] VITALS: BP 141/86; PULSE 102; RESP 18
[2018-10-21] MEDS: PANTOPRAZOLE (EC) 40 MG TAB PO SCH (05:17)
[2018-10-21] MEDS: metroNIDAZOLE 500 MG TAB PO SCH ×3 (05:17→21:09)
[2018-10-21] MEDS: HYDROCODONE/APAP (10/325) TAB PO PRN ×2 (05:46→14:51)
[2018-10-21] MEDS: ACCU-CHEK XX SCH ×4 (07:00→20:14)
[2018-10-21 08:00] VITALS: BP 151/91; PULSE 101; RESP 18
[2018-10-21] MEDS: GABAPENTIN 300 MG CAP PO SCH ×3 (08:34→20:13)
[2018-10-21] MEDS: BUSPIRONE 5 MG TAB PO SCH ×2 (08:34→20:12)
[2018-10-21] MEDS: PAROXETINE 20 MG TAB PO SCH (08:34)
[2018-10-21] MEDS: LISINOPRIL 10 MG TAB PO SCH (08:35)
[2018-10-21] MEDS: SUCRALFATE 1 GM TAB PO SCH ×4 (08:35→20:12)
[2018-10-21] MEDS: POTASSIUM CHLORIDE 20 MEQ POWDER FOR ORAL SOLN PO SCH (08:35)
[2018-10-21] MEDS: FUROSEMIDE 20 MG INJ IV SCH (08:35)
[2018-10-21] MEDS: LACTOBACILLUS RHAMNOSUS CAP PO SCH ×2 (08:35→20:13)
[2018-10-21] MEDS: NICOTINE (14 MG/24 HR) PATCH TRANSDERM SCH (08:35)
[2018-10-21] MEDS: METOCLOPRAMIDE 5 MG TAB PO SCH ×3 (08:35→20:13)
[2018-10-21] MEDS: ASPIRIN (EC) 81 MG TAB PO SCH (08:35)
[2018-10-21] MEDS: INSULIN GLARGINE [LANTus] (100 UNITS/ML) SYG SC SCH (08:39)
[2018-10-21] MEDS: INSULIN ASPART [NOVOLOG] 3 ML PEN SC SCH ×3 (08:39→17:20)
[2018-10-21] MEDS: ENOXAPARIN 40 MG/0.4 ML SYG SC SCH (08:40)
[2018-10-21] MEDS ORDERED: VITAMIN A & D 5 GM OINT PACKET TOP PRN (10:30)
--- NOTE | 2018-10-21 12:39 | CONS ---
Consultation Date/Type/Reason Admit Date/Time Oct 02, 2018 at 00:05 Initial Consult Date SUBJECTIVE: Pt is sleepy, afebrile. Looks comfortable. VS: stable T: 98.3 Tachy 101-103 LABS: Reviewed. WBC- 11.9 Microbiology: Abdominal fluid culture grew Klebsiella pneumonia, blood and urine culture remain negative ABD abscess Culture: 10/19/18 DESIRAE STAIN Final POLYMORPH. LEUKOCYTE 2+ . NO ORGANISM SEEN WOUND CULTURE Final Organism 1 K.PNEUMONIAE SSP PNEUMONIAE QUANTITY 1+ K PNE SPP M.I.C. RX --------- --- CEFAZOLIN I CEFOTAXIME S CIPROFLOXACIN <=0.25 S GENTAMICIN <=1 S LEVOFLOXACIN <=0.12 S TOBRAMYCIN <=1 S TRIMETHOPRIM/SULFAMETHOXAZOLE <=20 S Antimicrobials: Cipro and Flagyl Physical examination: GEN: Well-developed elderly -[place] man in no distress. HENT: Head atraumatic normocephalic, neck is supple PULM: chest rise symmetrical breath sounds diminished bases Heart S1-S2 Abdomen obese soft bowel sounds present Extremities without cyanosis Assessment: 1. S/p sepsis 2. Liver abscesses ==> s/p repeated IR guided aspiration with catheter placement 3. S/p healthcare associated pneumonia 4. Diabetes, poorly controlled 5. Hypertension 6. Bipolar disorder and homelessness 7. Poss retention/cystitis 8. Constipation 9. Anemia/Beta Thalassemia Plan: Pt is stable. Will continue current abx. abd abscess culture noted. Pt is appropriate antbx. Requesting Provider: HERRERA SALDAÑA NP Date/Time of Note DATE: 10/21/18 TIME: 12:34 Exam/Review of Systems Exam Vitals Vital Signs Date Temp Pulse Resp B/P (MAP) Pulse Ox O2 O2 Flow FiO2 Time Delivery Rate 10/21/18 98.3 101 18 151/91 96 08:00 (111) 10/19/18 Room Air 10:47 Intake and Output 10/20/18 10/20/18 10/21/18 1515:00 23:00 07:00 IntakeIntake Total 1360 ml 600 ml 900 ml OutputOutput Total 3200 ml 600 ml 1550 ml BalanceBalance -1840 ml 0 ml -650 ml Results Result Diagram: 10/21/18 0548 10/21/18 0548 Results 24hrs Laboratory Tests Test 10/20/18 16:35 10/20/18 20:38 10/21/18 05:01 10/21/18 05:48 Bedside Glucose 131 136 100 White Blood Count 11.9 H Red Blood Count 3.59 L Hemoglobin 8.2 L Hematocrit 27.3 L Mean Corpuscular 76.0 L Volume Mean Corpuscular 22.8 L Hemoglobin Mean Corpuscular 30.0 L Hemoglobin Concent Red Cell Distribution 15.8 H Width Platelet Count 661 H Mean Platelet Volume 8.9 Immature Granulocytes 1.600 H % Neutrophils % 75.4 Lymphocytes % 13.8 L Monocytes % 7.9 Eosinophils % 0.7 Basophils % 0.6 Nucleated Red Blood 0.0 Cells % Immature Granulocytes 0.190 H # Neutrophils # 9.0 H Lymphocytes # 1.6 Monocytes # 0.9 Eosinophils # 0.1 Basophils # 0.1 Nucleated Red Blood 0.0 Cells # Sodium Level 136 Potassium Level 4.3 Chloride Level 95 L Carbon Dioxide Level 33 H Anion Gap 8 Blood Urea Nitrogen 18 Creatinine 0.48 L Est Glomerular > 60 Filtrat Rate mL/min Glucose Level 252 H Calcium Level 8.7 Test 10/21/18 08:32 Bedside Glucose 305 H Medications Medication Current Medications Gabapentin (Neurontin) 300 mg TID PO Last administered on 10/21/18at 08:34; Admin Dose 300 MG; Start 10/02/18 at 09:00 Ondansetron HCl (Zofran Inj) 4 mg Q6H PRN IV NAUSEA AND/OR VOMITING; Start 09/14 05/02 at 02:00 Albuterol (Proventil 0.083% (Neb)) 2.5 mg Q2H RESP THERAPY PRN NEB SHORTNESS OF BREATH; Start 10/02/18 at 02:00 Acetaminophen (Tylenol Liquid) 650 mg Q6H PRN PO PAIN LEVEL 1-3 OR FEVER Last administered on 10/14/18at 07:57; Admin Dose 650 MG; Start 10/02/18 at 02:00 Menthol/Methyl Salicylate (Memo Erazo) 1 applic TID PRN TOP pain; Start 10/02/18 at 06:30 Tramadol HCl (Ultram) 50 mg Q6H PRN PO MODERATE PAIN LEVEL 4-6 Last administered on 10/19/18at 10:27; Admin Dose 50 MG; Start 10/02/18 at 11:00 Potassium Chloride (Potassium Chloride Pwd/Soln) 20 meq PER PROTOCOL PRN PO POTASSIUM REPLACEMENT PROTOCOL; Start 10/02/18 at 11:30 Potassium Chloride (Potassium Chloride Pwd/Soln) 30 meq PER PROTOCOL PRN PO POTASSIUM REPLACEMENT PROTOCOL; Start 10/02/18 at 11:30 Potassium Chloride (Potassium Chloride Pwd/Soln) 40 meq PER PROTOCOL PRN PO POTASSIUM REPLACEMENT PROTOCOL; Start 10/02/18 at 11:30 Miscellaneous Information 1 ea NOTE XX ; Start 10/02/18 at 22:00 Glucose (Glutose) 15 gm Q15M PRN PO DECREASED GLUCOSE; Start 10/02/18 at 22:00 Glucose (Glutose) 22.5 gm Q15M PRN PO DECREASED GLUCOSE; Start 10/02/18 at 22:00 Dextrose (D50w Syringe) 25 ml Q15M PRN IV DECREASED GLUCOSE Last administered on 10/12/18at 20:44; Admin Dose 25 ML; Start 10/02/18 at 22:00 Dextrose (D50w Syringe) 50 ml Q15M PRN IV DECREASED GLUCOSE Last administered on 10/12/18at 18:15; Admin Dose 50 ML; Start 10/02/18 at 22:00 Glucagon (Glucagen) 1 mg Q15M PRN IM DECREASED GLUCOSE; Start 10/02/18 at 22:00 Glucose (Glutose) 15 gm Q15M PRN BUCCAL DECREASED GLUCOSE; Start 10/02/18 at 22:00 Diagnostic Test (Pha) (Accu-Chek) 1 ea AC MEALS AND BEDTIME XX Last administered on 10/20/18at 20:41; Admin Dose 1 EA; Start 10/03/18 at 17:05 Calcium Carbonate (Tums) 500 mg Q4 PRN PO epigastric pain Last administered on 10/16/18 11:32; Admin Dose 500 MG; Start 10/05/18 at 01:30 Pantoprazole (Protonix Tab) 40 mg DAILY@06 PO Last administered on 10/21/18at 05:17; Admin Dose 40 MG; Start 10/06/18 at 06:00 Lactobacillus Acidophilus/ Rhamnosus (Culturelle) 1 cap BID PO Last administered on 10/21/18at 08:35; Admin Dose 1 CAP; Start 10/08/18 at 21:00 Acetaminophen/ Hydrocodone Bitart ([place] (10/325)) 1 tab Q6H PRN PO SEVERE PAIN LEVEL 7-10 Last administered on 10/21/18 05:46; Admin Dose 1 TAB; Start 10/08/18 at 14:30 Nicotine (Nicoderm 14 Mg/ 24hr) 1 patch DAILY TRANSDERM Last administered on 10/21/18 08:35; Admin Dose 1 PATCH; Start 10/08/18 at 14:30 Loperamide HCl (Imodium Cap) 2 mg QID PRN PO DIARRHEA; Start 10/09/18 at 12:11 Atorvastatin Calcium (Lipitor) 20 mg QHS PO Last administered on 10/20/18 2 0:39; Admin Dose 20 MG; Start 10/15/18 at 21:00 Hydrocortisone (Anusol-Hc Supp) 25 mg TID PRN OR HEMORROID PAIN/ITCHING; Start 10/09/18 at 13:30 Potassium Chloride (Potassium Chloride Pwd/Soln) 20 meq DAILY PO Last administered on 10/21/18 08:35; Admin Dose 20 MEQ; Start 10/09/18 at 13:30 Enoxaparin Sodium (Lovenox) 40 mg DAILY SC Last administered on 10/21/18 08:40; Admin Dose 40 MG; Start 10/14/18 at 09:00 Aspirin (Halfprin) 81 mg DAILY PO Last administered on 10/21/18 08:35; Admin Dose 81 MG; Start 10/14/18 at 14:00 Metoclopramide HCl (Reglan) 5 mg TID PO Last administered on 10/21/18 08:35; Admin Dose 5 MG; Start 10/13/18 at 13:00 Sucralfate (Carafate) 1 gm QID PO Last administered on 10/21/18 08:35; Admin Dose 1 GM; Start 10/13/18 at 13:00 Insulin Aspart (Novolog Insulin Pen) 5 unit WITH MEALS SC Last administered on 10/21/18 08:39; Admin Dose 5 UNIT; Start 10/13/18 at 18:00 Insulin Glargine (Lantus) 15 units DAILY@0800 SC Last administered on 10/21/18 08:39; Admin Dose 15 UNITS; Start 10/14/18 at 08:00 Lisinopril (Zestril) 10 mg DAILY PO Last administered on 10/21/18 08:35; Admin Dose 10 MG; Start 10/15/18 at 09:00 Morphine Sulfate (morphine) 6 mg Q4H PRN PO SEVERE PAIN LEVEL 7-10 Last administered on 10/19/18 17:12; Admin Dose 6 MG; Start 10/15/18 at 15:30 Paroxetine HCl (Paxil) 20 mg DAILY PO Last administered on 10/21/18 08:34; Admin Dose 20 MG; Start 10/17/18 at 09:00 Buspirone HCl (Buspar) 10 mg BID PO Last administered on 10/21/18 08:34; Admin Dose 10 MG; Start 10/16/18 at 21:00 Furosemide (Lasix) 20 mg DAILY IV Last administered on 10/21/18 08:35; Admin Dose 20 MG; Start 10/17/18 at 13:30 Metronidazole (Flagyl) 500 mg Q8 PO Last administered on 10/21/18 05:17; Admin Dose 500 MG; Start 10/18/18 at 14:00 Ciprofloxacin (Cipro) 500 mg BID@06,18 PO Last administered on 10/20/18 20:40; Admin Dose 500 MG; Start 10/18/18 at 18:00 Insulin Aspart (Novolog Insulin Pen) (Adult SC Insulin - Moder... Q4 SC Last administered on 10/21/18 08:38; Admin Dose 10 UNIT; Start 10/19/18 at 01:00 Vitamin A/Vitamin D (Vitamin A & D Oint) 1 applic BID PRN TOP DRYNESS; Start 10/21/18 at 10:30 Nystatin (Nystatin Powder) 1 applic BID TOP ; Start 10/21/18 at 21:00 CAMRON RICHARDSON Oct 21, 2018 12:39
--- NOTE | 2018-10-21 13:45 | CONS ---
Assessment/Plan Assessment/Plan Assessment/Plan (Daily) # Anemia- Hgb 7.6 today - Beta Thalassemia -certainly a contributing factor to his microcytic anemia - initially pt was noted to have a low iron saturation in the setting of a high ferritin and low TIBC. THus there is also a component of chronic inflammation from the underlying liver abscess and diabetes, as well as a component of iron deficiency. now s/p 11 days of IV iron - EGD and coloscopy - no evidence of active GI bleed although colon prep was suboptimal - given the elevated haptoglobin- no evidence of hemolysis -negative SPEP rules out monoclonal gammopathy -patient's epo level is elevated- no Procrit at this time # Elevated Alk phos -bone scan negative -recent CT A/P demonstrates unresolved liver abscesses which is likely the underlying cause of elevated AFP- surgery follows -s/p IR guided drainage of the liver abscess -continue abx for liver abscess # Diabetes Mellitus -uncontrolled -continue Glycemic control per primary team # Bipolar -continue mood stabilizers Patient seen in collaboration with Dr Nunez Consultation Date/Type/Reason Admit Date/Time Oct 02, 2018 at 00:05 Initial Consult Date 10/04/18 Type of Consult oncology Reason for Consultation Anemia Requesting Provider: HERRERA SALDAÑA NP Date/Time of Note DATE: 10/21/18 TIME: 13:44 24 HR Interval Summary Free Text/Dictation 10/20/2018 Entry- Resting in bed; seems comfortable no new issues reported overnight per staff Detailed Summary Eyes: no complaints ENT: no complaints Respiratory: no complaints Cardiovascular: no complaints Gastrointestinal: pain Genitourinary: no complaints Musculoskeletal: no complaints Skin: no complaints Neurologic: no complaints Endocrine: no complaints Psychological: nl mood/affect Immunologic: no complaints Exam/Review of Systems Exam Vitals Vital Signs Date Temp Pulse Resp B/P (MAP) Pulse Ox O2 O2 Flow FiO2 Time Delivery Rate 10/21/18 98.3 101 18 151/91 96 08:00 (111) 10/19/18 Room Air 10:47 Intake and Output 10/20/18 10/20/18 10/21/18 1515:00 23:00 07:00 IntakeIntake Total 1360 ml 600 ml 900 ml OutputOutput Total 3200 ml 600 ml 1550 ml BalanceBalance -1840 ml 0 ml -650 ml Constitutional: alert, well developed Psych: nl mood/affect Eyes: nl lids, nl sclera ENMT: nl external ears & nose Respiratory: clear to auscultation (bilaterally) Cardiovascular: nl pulses, other (s1s2) Gastrointestinal: soft, tender (RUQ) Musculoskeletal: nl extremities to inspection Extremities: normal pulses Neurological: nl speech, other (alert/responsive) Lymph: nontender Results Result Diagram: 10/21/18 0548 10/21/18 0548 Results 24hrs Laboratory Tests Test 10/20/18 16:35 10/20/18 20:38 10/21/18 05:01 10/21/18 05:48 Bedside Glucose 131 136 100 White Blood Count 11.9 H Red Blood Count 3.59 L Hemoglobin 8.2 L Hematocrit 27.3 L Mean Corpuscular 76.0 L Volume Mean Corpuscular 22.8 L Hemoglobin Mean Corpuscular 30.0 L Hemoglobin Concent Red Cell 15.8 H Distribution Width Platelet Count 661 H Mean Platelet Volume 8.9 Immature 1.600 H Granulocytes % Neutrophils % 75.4 Lymphocytes % 13.8 L Monocytes % 7.9 Eosinophils % 0.7 Basophils % 0.6 Nucleated Red Blood 0.0 Cells % Immature 0.190 H Granulocytes # Neutrophils # 9.0 H Lymphocytes # 1.6 Monocytes # 0.9 Eosinophils # 0.1 Basophils # 0.1 Nucleated Red Blood 0.0 Cells # Sodium Level 136 Potassium Level 4.3 Chloride Level 95 L Carbon Dioxide Level 33 H Anion Gap 8 Blood Urea Nitrogen 18 Creatinine 0.48 L Est Glomerular > 60 Filtrat Rate mL/min Glucose Level 252 H Calcium Level 8.7 Test 10/21/18 08:32 10/21/18 12:31 Bedside Glucose 305 H 235 H Medications Medication Current Medications Gabapentin (Neurontin) 300 mg TID PO Last administered on 10/21/18at 12:34; Admin Dose 300 MG; Start 10/02/18 at 09:00 Ondansetron HCl (Zofran Inj) 4 mg Q6H PRN IV NAUSEA AND/OR VOMITING; Start 10/02/18 at 02:00 Albuterol (Proventil 0.083% (Neb)) 2.5 mg Q2H RESP THERAPY PRN NEB SHORTNESS OF BREATH; Start 10/02/18 at 02:00 Acetaminophen (Tylenol Liquid) 650 mg Q6H PRN PO PAIN LEVEL 1-3 OR FEVER Last administered on 10/14/18 07:57; Admin Dose 650 MG; Start 10/02/18 at 02:00 Menthol/Methyl Salicylate (Memo Erazo) 1 applic TID PRN TOP pain; Start 10/02/18 at 06:30 Tramadol HCl (Ultram) 50 mg Q6H PRN PO MODERATE PAIN LEVEL 4-6 Last administered on 10/19/18 10:27; Admin Dose 50 MG; Start 10/02/18 at 11:00 Potassium Chloride (Potassium Chloride Pwd/Soln) 20 meq PER PROTOCOL PRN PO POTASSIUM REPLACEMENT PROTOCOL; Start 10/02/18 at 11:30 Potassium Chloride (Potassium Chloride Pwd/Soln) 30 meq PER PROTOCOL PRN PO POTASSIUM REPLACEMENT PROTOCOL; Start 10/02/18 at 11:30 Potassium Chloride (Potassium Chloride Pwd/Soln) 40 meq PER PROTOCOL PRN PO POTASSIUM REPLACEMENT PROTOCOL; Start 10/02/18 at 11:30 Miscellaneous Information 1 ea NOTE XX ; Start 10/02/18 at 22:00 Glucose (Glutose) 15 gm Q15M PRN PO DECREASED GLUCOSE; Start 10/02/18 at 22:00 Glucose (Glutose) 22.5 gm Q15M PRN PO DECREASED GLUCOSE; Start 10/02/18 at 22:00 Dextrose (D50w Syringe) 25 ml Q15M PRN IV DECREASED GLUCOSE Last administered on 10/12/18 20:44; Admin Dose 25 ML; Start 10/02/18 at 22:00 Dextrose (D50w Syringe) 50 ml Q15M PRN IV DECREASED GLUCOSE Last administered on 10/12/18 18:15; Admin Dose 50 ML; Start 10/02/18 at 22:00 Glucagon (Glucagen) 1 mg Q15M PRN IM DECREASED GLUCOSE; Start 10/02/18 at 22:00 Glucose (Glutose) 15 gm Q15M PRN BUCCAL DECREASED GLUCOSE; Start 10/02/18 at 22:00 Diagnostic Test (Pha) (Accu-Chek) 1 ea AC MEALS AND BEDTIME XX Last administered on 10/20/18 20:41; Admin Dose 1 EA; Start 10/03/18 at 17:05 Calcium Carbonate (Tums) 500 mg Q4 PRN PO epigastric pain Last administered on 10/16/18 11:32; Admin Dose 500 MG; Start 10/05/18 at 01:30 Pantoprazole (Protonix Tab) 40 mg DAILY@06 PO Last administered on 10/21/18 05:17; Admin Dose 40 MG; Start 10/06/18 at 06:00 Lactobacillus Acidophilus/ Rhamnosus (Culturelle) 1 cap BID PO Last administ ered on 10/21/18 08:35; Admin Dose 1 CAP; Start 10/08/18 at 21:00 Acetaminophen/ Hydrocodone Bitart ([place] (10/325)) 1 tab Q6H PRN PO SEVERE PAIN LEVEL 7-10 Last administered on 10/21/18 05:46; Admin Dose 1 TAB; Start 10/08/18 at 14:30 Nicotine (Nicoderm 14 Mg/ 24hr) 1 patch DAILY TRANSDERM Last administered on 10/21/18 08:35; Admin Dose 1 PATCH; Start 10/08/18 at 14:30 Loperamide HCl (Imodium Cap) 2 mg QID PRN PO DIARRHEA; Start 10/09/18 at 12:11 Atorvastatin Calcium (Lipitor) 20 mg QHS PO Last administered on 10/20/18 20:39; Admin Dose 20 MG; Start 10/15/18 at 21:00 Hydrocortisone (Anusol-Hc Supp) 25 mg TID PRN SC HEMORROID PAIN/ITCHING; Start 10/09/18 at 13:30 Potassium Chloride (Potassium Chloride Pwd/Soln) 20 meq DAILY PO Last administered on 10/21/18 08:35; Admin Dose 20 MEQ; Start 10/09/18 at 13:30 Enoxaparin Sodium (Lovenox) 40 mg DAILY SC Last administered on 10/21/18 08:40; Admin Dose 40 MG; Start 10/14/18 at 09:00 Aspirin (Halfprin) 81 mg DAILY PO Last administered on 10/21/18 08:35; Admin Dose 81 MG; Start 10/14/18 at 14:00 Metoclopramide HCl (Reglan) 5 mg TID PO Last administered on 10/21/18 12:34; Admin Dose 5 MG; Start 10/13/18 at 13:00 Sucralfate (Carafate) 1 gm QID PO Last administered on 10/21/18 12:34; Admin Dose 1 GM; Start 10/13/18 at 13:00 Insulin Aspart (Novolog Insulin Pen) 5 unit WITH MEALS SC Last administered on 10/21/18 12:36; Admin Dose 5 UNIT; Start 10/13/18 at 18:00 Insulin Glargine (Lantus) 15 units DAILY@0800 SC Last administered on 10/21/18 08:39; Admin Dose 15 UNITS; Start 10/14/18 at 08:00 Lisinopril (Zestril) 10 mg DAILY PO Last administered on 10/21/18 08:35; Admin Dose 10 MG; Start 10/15/18 at 09:00 Morphine Sulfate (morphine) 6 mg Q4H PRN PO SEVERE PAIN LEVEL 7-10 Last administered on 10/19/18 17:12; Admin Dose 6 MG; Start 10/15/18 at 15:30 Paroxetine HCl (Paxil) 20 mg DAILY PO Last administered on 10/21/18 08:34; Admin Dose 20 MG; Start 10/17/18 at 09:00 Buspirone HCl (Buspar) 10 mg BID PO Last administered on 10/21/18 08:34; Admin Dose 10 MG; Start 10/16/18 at 21:00 Furosemide (Lasix) 20 mg DAILY IV Last administered on 10/21/18 08:35; Admin Dose 20 MG; Start 10/17/18 at 13:30 Metronidazole (Flagyl) 500 mg Q8 PO Last administered on 10/21/18 05:17; Admin Dose 500 MG; Start 10/18/18 at 14:00 Ciprofloxacin (Cipro) 500 mg BID@06,18 PO Last administered on 10/20/18 20:40; Admin Dose 500 MG; Start 10/18/18 at 18:00 Insulin Aspart (Novolog Insulin Pen) (Adult SC Insulin - Moder... Q4 SC Last administered on 10/21/18 12:37; Admin Dose 6 UNIT; Start 10/19/18 at 01:00 Vitamin A/Vitamin D (Vitamin A & D Oint) 1 applic BID PRN TOP DRYNESS; Start 10/21/18 at 10:30 Nystatin (Nystatin Powder) 1 applic BID TOP ; Start 10/21/18 at 21:00 JEANA MEMBRENO Oct 21, 2018 1:45 pm
--- NOTE | 2018-10-21 13:46 | CONS ---
Assessment/Plan Assessment/Plan Assessment/Plan (Daily) # Anemia- Hgb 8.2 today - Beta Thalassemia -certainly a contributing factor to his microcytic anemia - initially pt was noted to have a low iron saturation in the setting of a high ferritin and low TIBC. THus there is also a component of chronic inflammation from the underlying liver abscess and diabetes, as well as a component of iron deficiency. now s/p 11 days of IV iron - EGD and coloscopy - no evidence of active GI bleed although colon prep was suboptimal - given the elevated haptoglobin- no evidence of hemolysis -negative SPEP rules out monoclonal gammopathy -patient's epo level is elevated- no Procrit at this time # Elevated Alk phos -bone scan negative -recent CT A/P demonstrates unresolved liver abscesses which is likely the underlying cause of elevated AFP- surgery follows -s/p IR guided drainage of the liver abscess -continue abx for liver abscess # Diabetes Mellitus -uncontrolled -continue Glycemic control per primary team # Bipolar -continue mood stabilizers Patient seen in collaboration with Dr Nunez Consultation Date/Type/Reason Admit Date/Time Oct 02, 2018 at 00:05 Initial Consult Date 10/04/18 Type of Consult oncology Reason for Consultation ANEMIA Requesting Provider: HERRERA SALDAÑA NP Date/Time of Note DATE: 10/21/18 TIME: 13:46 24 HR Interval Summary Free Text/Dictation -Resting in bed; - c/o ruq abdominal pain -no new issues reported overnight per staff Detailed Summary Eyes: no complaints ENT: no complaints Respiratory: no complaints Cardiovascular: no complaints Gastrointestinal: pain Genitourinary: no complaints Musculoskeletal: no complaints Skin: no complaints Neurologic: no complaints Endocrine: no complaints Lymphatic: no complaints Psychological: nl mood/affect Immunologic: no complaints Exam/Review of Systems Exam Vitals Vital Signs Date Temp Pulse Resp B/P (MAP) Pulse Ox O2 O2 Flow FiO2 Time Delivery Rate 10/21/18 98.3 101 18 151/91 96 08:00 (111) 10/19/18 Room Air 10:47 Intake and Output 10/20/18 10/20/18 10/21/18 1515:00 23:00 07:00 IntakeIntake Total 1360 ml 600 ml 900 ml OutputOutput Total 3200 ml 600 ml 1550 ml BalanceBalance -1840 ml 0 ml -650 ml Constitutional: alert, well developed Psych: nl mood/affect Eyes: EOMI, nl lids, nl sclera ENMT: nl external ears & nose Neck: non-tender Respiratory: clear to auscultation (bilaterally) Cardiovascular: nl pulses, other (S1S2) Gastrointestinal: soft, surgical scars, tender (RUQ) Musculoskeletal: nl extremities to inspection Extremities: normal pulses Neurological: nl speech Skin: nl turgor Lymph: nontender Results Result Diagram: 10/21/1848 10/21/1848 Results 24hrs Laboratory Tests Test 10/20/18 16:35 10/20/18 20:38 10/21/18 05:01 10/21/18 05:48 Bedside Glucose 131 136 100 White Blood Count 11.9 H Red Blood Count 3.59 L Hemoglobin 8.2 L Hematocrit 27.3 L Mean Corpuscular 76.0 L Volume Mean Corpuscular 22.8 L Hemoglobin Mean Corpuscular 30.0 L Hemoglobin Concent Red Cell 15.8 H Distribution Width Platelet Count 661 H Mean Platelet Volume 8.9 Immature 1.600 H Granulocytes % Neutrophils % 75.4 Lymphocytes % 13.8 L Monocytes % 7.9 Eosinophils % 0.7 Basophils % 0.6 Nucleated Red Blood 0.0 Cells % Immature 0.190 H Granulocytes # Neutrophils # 9.0 H Lymphocytes # 1.6 Monocytes # 0.9 Eosinophils # 0.1 Basophils # 0.1 Nucleated Red Blood 0.0 Cells # Sodium Level 136 Potassium Level 4.3 Chloride Level 95 L Carbon Dioxide Level 33 H Anion Gap 8 Blood Urea Nitrogen 18 Creatinine 0.48 L Est Glomerular > 60 Filtrat Rate mL/min Glucose Level 252 H Calcium Level 8.7 Test 10/21/18 08:32 10/21/18 12:31 Bedside Glucose 305 H 235 H Medications Medication Current Medications Gabapentin (Neurontin) 300 mg TID PO Last administered on 10/21/18at 12:34; Admin Dose 300 MG; Start 10/02/18 at 09:00 Ondansetron HCl (Zofran Inj) 4 mg Q6H PRN IV NAUSEA AND/OR VOMITING; Start 10/02/18 at 02:00 Albuterol (Proventil 0.083% (Neb)) 2.5 mg Q2H RESP THERAPY PRN NEB SHORTNESS OF BREATH; Start 10/02/18 at 02:00 Acetaminophen (Tylenol Liquid) 650 mg Q6H PRN PO PAIN LEVEL 1-3 OR FEVER Last administered on 10/14/18 07:57; Admin Dose 650 MG; Start 10/02/18 at 02:00 Menthol/Methyl Salicylate (Memo Erazo) 1 applic TID PRN TOP pain; Start 10/02/18 at 06:30 Tramadol HCl (Ultram) 50 mg Q6H PRN PO MODERATE PAIN LEVEL 4-6 Last administered on 10/19/18 10:27; Admin Dose 50 MG; Start 10/02/18 at 11:00 Potassium Chloride (Potassium Chloride Pwd/Soln) 20 meq PER PROTOCOL PRN PO POTASSIUM REPLACEMENT PROTOCOL; Start 10/02/18 at 11:30 Potassium Chloride (Potassium Chloride Pwd/Soln) 30 meq PER PROTOCOL PRN PO POTASSIUM REPLACEMENT PROTOCOL; Start 10/02/18 at 11:30 Potassium Chloride (Potassium Chloride Pwd/Soln) 40 meq PER PROTOCOL PRN PO POTASSIUM REPLACEMENT PROTOCOL; Start 10/02/18 at 11:30 Miscellaneous Information 1 ea NOTE XX ; Start 10/02/18 at 22:00 Glucose (Glutose) 15 gm Q15M PRN PO DECREASED GLUCOSE; Start 10/02/18 at 22:00 Glucose (Glutose) 22.5 gm Q15M PRN PO DECREASED GLUCOSE; Start 10/02/18 at 22:00 Dextrose (D50w Syringe) 25 ml Q15M PRN IV DECREASED GLUCOSE Last administered on 10/12/18at 20:44; Admin Dose 25 ML; Start 10/02/18 at 22:00 Dextrose (D50w Syringe) 50 ml Q15M PRN IV DECREASED GLUCOSE Last administered on 10/12/18at 18:15; Admin Dose 50 ML; Start 10/02/18 at 22:00 Glucagon (Glucagen) 1 mg Q15M PRN IM DECREASED GLUCOSE; Start 10/02/18 at 22:00 Glucose (Glutose) 15 gm Q15M PRN BUCCAL DECREASED GLUCOSE; Start 10/02/18 at 22:00 Diagnostic Test (Pha) (Accu-Chek) 1 ea AC MEALS AND BEDTIME XX Last administered on 10/20/18at 20:41; Admin Dose 1 EA; Start 10/03/18 at 17:05 Calcium Carbonate (Tums) 500 mg Q4 PRN PO epigastric pain Last administered on 10/16/18 11:32; Admin Dose 500 MG; Start 10/05/18 at 01:30 Pantoprazole (Protonix Tab) 40 mg DAILY@06 PO Last administered on 10/21/18 05:17; Admin Dose 40 MG; Start 10/06/18 at 06:00 Lactobacillus Acidophilus/ Rhamnosus (Culturelle) 1 cap BID PO Last administered on 10/21/18 08:35; Admin Dose 1 CAP; Start 10/08/18 at 21:00 Acetaminophen/ Hydrocodone Bitart ([place] (10/325)) 1 tab Q6H PRN PO SEVERE PAIN LEVEL 7-10 Last administered on 10/21/18 05:46; Admin Dose 1 TAB; Start 10/08/18 at 14:30 Nicotine (Nicoderm 14 Mg/ 24hr) 1 patch DAILY TRANSDERM Last administered on 10/21/18 08:35; Admin Dose 1 PATCH; Start 10/08/18 at 14:30 Loperamide HCl (Imodium Cap) 2 mg QID PRN PO DIARRHEA; Start 10/09/18 at 12:11 Atorvastatin Calcium (Lipitor) 20 mg QHS PO Last administered on 10/20/18 20:39; Admin Dose 20 MG; Start 10/15/18 at 21:00 Hydrocortisone (Anusol-Hc Supp) 25 mg TID PRN [place] HEMORROID PAIN/ITCHING; Start 10/09/18 at 13:30 Potassium Chloride (Potassium Chloride Pwd/Soln) 20 meq DAILY PO Last administered on 10/21/18 08:35; Admin Dose 20 MEQ; Start 10/09/18 at 13:30 Enoxaparin Sodium (Lovenox) 40 mg DAILY SC Last administered on 10/21/18 08:40; Admin Dose 40 MG; Start 10/14/18 at 09:00 Aspirin (Halfprin) 81 mg DAILY PO Last administered on 10/21/18 08:35; Admin Dose 81 MG; Start 10/14/18 at 14:00 Metoclopramide HCl (Reglan) 5 mg TID PO Last administered on 10/21/18 12:34; Admin Dose 5 MG; Start 10/13/18 at 13:00 Sucralfate (Carafate) 1 gm QID PO Last administered on 10/21/18 12:34; Admin Dose 1 GM; Start 10/13/18 at 13:00 Insulin Aspart (Novolog Insulin Pen) 5 unit WITH MEALS SC Last administered on 10/21/18 12:36; Admin Dose 5 UNIT; Start 10/13/18 at 18:00 Insulin Glargine (Lantus) 15 units DAILY@0800 SC Last administered on 10/21/18 08:39; Admin Dose 15 UNITS; Start 10/14/18 at 08:00 Lisinopril (Zestril) 10 mg DAILY PO Last administered on 10/21/18 08:35; Admin Dose 10 MG; Start 10/15/18 at 09:00 Morphine Sulfate (morphine) 6 mg Q4H PRN PO SEVERE PAIN LEVEL 7-10 Last administered on 10/19/18 17:12; Admin Dose 6 MG; Start 10/15/18 at 15:30 Paroxetine HCl (Paxil) 20 mg DAILY PO Last administered on 10/21/18 08:34; Admin Dose 20 MG; Start 10/17/18 at 09:00 Buspirone HCl (Buspar) 10 mg BID PO Last administered on 10/21/18 08:34; Admin Dose 10 MG; Start 10/16/18 at 21:00 Furosemide (Lasix) 20 mg DAILY IV Last administered on 10/21/18 08:35; Admin Dose 20 MG; Start 10/17/18 at 13:30 Metronidazole (Flagyl) 500 mg Q8 PO Last administered on 10/21/18 05:17; Admin Dose 500 MG; Start 10/18/18 at 14:00 Ciprofloxacin (Cipro) 500 mg BID@06,18 PO Last administered on 10/20/18 20:40; Admin Dose 500 MG; Start 10/18/18 at 18:00 Insulin Aspart (Novolog Insulin Pen) (Adult SC Insulin - Moder... Q4 SC Last administered on 10/21/18 12:37; Admin Dose 6 UNIT; Start 10/19/18 at 01:00 Vitamin A/Vitamin D (Vitamin A & D Oint) 1 applic BID PRN TOP DRYNESS; Start 10/21/18 at 10:30 Nystatin (Nystatin Powder) 1 applic BID TOP ; Start 10/21/18 at 21:00 JEANA MEMBRENO Oct 21, 2018 1:46 pm
[2018-10-21 14:00] VITALS: BP 110/67; PULSE 96; RESP 18
--- NOTE | 2018-10-21 16:40 | PN ---
Date/Time of Note Date/Time of Note DATE: 10/21/18 TIME: 16:39 Assessment/Plan VTE Prophylaxis Risk score (from Ns)>0 risk: 3 SCD applied (from [facility] [place]): No SCD contraindicated: other Pharmacological prophylaxis: NA/contraindicated Pharm contraindication: anticoag not tolerated Lines/Catheters IV C[facility]ter Type (from [facility] Saline Lock Urinary Cath still in place: No Assessment/Plan Hospital Course SUBJECTIVE: Complains of right abdominal wall pain. OBJECTIVE: Physical Exam General: Adequately build 62 year-old male lying in bed in no apparent distress. HEENT: Normocephalic, atraumatic. Eyes: Anicteric sclerae, conjunctivae clear. ENT: Nasal septum midline, oral mucosa moist. Neck supple, no JVD noticed. Respiratory: Bilaterally clear breath sounds. No use of accessory muscles of respiration. No adventitious breath sounds. Cardiovascular: S1, S2 heard. Regular rate and rhythm. Abdomen: Soft, nontender, and nondistended. Right upper quadrant drain with sanguinous drainage. Genitourinary: Deferred. Extremities: No cyanosis, no clubbing, no edema. Peripheral pulses palpable. Neurologic: The patient is awake, alert, and oriented. Vitals & Labs per chart. ASSESSMENT & PLAN 63-year-old male with past medical history of diabetes mellitus, bipolar disorder, chronic back pain, and homelessness who came to the emergency room with multiple complaints. The patient was noticed to have underlying hyperglycemia. The patient did not have any evidence of DKA. The patient was admitted to inpatient setting for further treatment and evaluation. 1. -Hyperglycemia. -S/P insulin drip. -No evidence of any DKA. -Continue sliding scale insulin along with pre-meal insulin basal insulin. 2. Diabetes mellitus. -Uncontrolled. -Hemoglobin A1C >14. -Continue SSI along with pre-meal insulin and basal insulin. 3. Bipolar disorder. -Continue mood stabilizers. 4. Hyponatremia. -Etiology could be multifactorial including underlying hyperglycemia. -Correct hyperglycemia. -Resolved. 5. Essential hypertension. -Continue antihypertensives. 6. Dyslipidemia. -Continue statins. 7. Transaminitis. -Etiology unclear. -Hepatitis panel negative. 8. Anemia. -Microcytic and hypochromic. -Stool OB X1 positive. Repeat stool for OB negative. -Elevated LDH with CBC from admission showing nucleated RBC, concerning for hemolytic anemia. Obtain hematology consult. -Patient was noncompliant with status post hematology bowel preparation. -Status post hematology evaluation who conveyed that the patient's anemia is secondary to underlying iron deficiency. 9. Liver abscess. -Status post CT-guided aspiration on 10/09/2018. -Status post CT-guided aspiration and placement of a drain on 10/19/2018. -Fluid culture from 10/09/2018 and 10/19/2018 showing Klebsiella pneumoniae. -Continue antimicrobials as per ID. 10. Cardiomyopathy. -Ejection fraction 40-45%. -Continue KRYSTYNA inhibitors. -Add beta-blockers if tolerated. 11. Subacute/late subacute lacunar infarct. -Continue aspirin and statins. 12. Homelessness. 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 13. Severe protein calorie malnutrition. -Dietary consult. -Dietary supplements. 14. Non-compliance with medications and diet. -Reinforced importance of compliance. 15. Bilateral infiltrates on chest x-ray. -Fluid versus pneumonia. -Continue antimicrobials. -Continue diuretics. 16. Fluids, electrolytes, and nutrition. -Carbohydrate controlled diet. 17. DVT prophylaxis. -SQ Lovenox. -Held because of worsening anemia. 18. Plan. -Continue antimicrobials as per ID. -Continue iron supplements. -Await clinical improvement. The patient was seen in collaboration with Dr. Arriaga. Result Diagram: 10/21/18 0548 10/21/1848 Results 24hrs Laboratory Tests Test 10/20/18 20:38 10/21/18 05:01 10/21/18 05:48 10/21/18 08:32 Bedside Glucose 136 100 305 H White Blood Count 11.9 H Red Blood Count 3.59 L Hemoglobin 8.2 L Hematocrit 27.3 L Mean Corpuscular 76.0 L Volume Mean Corpuscular 22.8 L Hemoglobin Mean Corpuscular 30.0 L Hemoglobin Concent Red Cell 15.8 H Distribution Width Platelet Count 661 H Mean Platelet Volume 8.9 Immature 1.600 H Granulocytes % Neutrophils % 75.4 Lymphocytes % 13.8 L Monocytes % 7.9 Eosinophils % 0.7 Basophils % 0.6 Nucleated Red Blood 0.0 Cells % Immature 0.190 H Granulocytes # Neutrophils # 9.0 H Lymphocytes # 1.6 Monocytes # 0.9 Eosinophils # 0.1 Basophils # 0.1 Nucleated Red Blood 0.0 Cells # Sodium Level 136 Potassium Level 4.3 Chloride Level 95 L Carbon Dioxide Level 33 H Anion Gap 8 Blood Urea Nitrogen 18 Creatinine 0.48 L Est Glomerular > 60 Filtrat Rate mL/min Glucose Level 252 H Calcium Level 8.7 Test 10/21/18 12:31 Bedside Glucose 235 H Exam/Review of Systems Exam Vitals Vital Signs Date Temp Pulse Resp B/P (MAP) Pulse Ox O2 O2 Flow FiO2 Time Delivery Rate 10/21/18 97.9 96 18 110/67 100 14:00 (81) 10/19/18 Room Air 10:47 Intake and Output 10/20/18 10/20/18 10/21/18 1414:59 22:59 06:59 IntakeIntake Total 1360 ml 600 ml 900 ml OutputOutput Total 3200 ml 600 ml 1550 ml BalanceBalance -1840 ml 0 ml -650 ml Results Results 24hrs Laboratory Tests Test 10/20/18 20:38 10/21/18 05:01 10/21/18 05:48 10/21/18 08:32 Bedside Glucose 136 100 305 H White Blood Count 11.9 H Red Blood Count 3.59 L Hemoglobin 8.2 L Hematocrit 27.3 L Mean Corpuscular 76.0 L Volume Mean Corpuscular 22.8 L Hemoglobin Mean Corpuscular 30.0 L Hemoglobin Concent Red Cell 15.8 H Distribution Width Platelet Count 661 H Mean Platelet Volume 8.9 Immature 1.600 H Granulocytes % Neutrophils % 75.4 Lymphocytes % 13.8 L Monocytes % 7.9 Eosinophils % 0.7 Basophils % 0.6 Nucleated Red Blood 0.0 Cells % Immature 0.190 H Granulocytes # Neutrophils # 9.0 H Lymphocytes # 1.6 Monocytes # 0.9 Eosinophils # 0.1 Basophils # 0.1 Nucleated Red Blood 0.0 Cells # Sodium Level 136 Potassium Level 4.3 Chloride Level 95 L Carbon Dioxide Level 33 H Anion Gap 8 Blood Urea Nitrogen 18 Creatinine 0.48 L Est Glomerular > 60 Filtrat Rate mL/min Glucose Level 252 H Calcium Level 8.7 Test 10/21/18 12:31 Bedside Glucose 235 H Medications Medication Current Medications Gabapentin (Neurontin) 300 mg TID PO Last administered on 10/21/18at 12:34; Admin Dose 300 MG; Start 10/02/18 at 09:00 Ondansetron HCl (Zofran Inj) 4 mg Q6H PRN IV NAUSEA AND/OR VOMITING; Start 10/02/18 at 02:00 Albuterol (Proventil 0.083% (Neb)) 2.5 mg Q2H RESP THERAPY PRN NEB SHORTNESS OF BREATH; Start 10/02/18 at 02:00 Acetaminophen (Tylenol Liquid) 650 mg Q6H PRN PO PAIN LEVEL 1-3 OR FEVER Last administered on 10/14/18 07:57; Admin Dose 650 MG; Start 10/02/18 at 02:00 Menthol/Methyl Salicylate (Memo Erazo) 1 applic TID PRN TOP pain; Start 10/02/18 at 06:30 Tramadol HCl (Ultram) 50 mg Q6H PRN PO MODERATE PAIN LEVEL 4-6 Last administered on 10/19/18 10:27; Admin Dose 50 MG; Start 10/02/18 at 11:00 Potassium Chloride (Potassium Chloride Pwd/Soln) 20 meq PER PROTOCOL PRN PO POTASSIUM REPLACEMENT PROTOCOL; Start 10/02/18 at 11:30 Potassium Chloride (Potassium Chloride Pwd/Soln) 30 meq PER PROTOCOL PRN PO POTASSIUM REPLACEMENT PROTOCOL; Start 10/02/18 at 11:30 Potassium Chloride (Potassium Chloride Pwd/Soln) 40 meq PER PROTOCOL PRN PO POTASSIUM REPLACEMENT PROTOCOL; Start 10/02/18 at 11:30 Miscellaneous Information 1 ea NOTE XX ; Start 10/02/18 at 22:00 Glucose (Glutose) 15 gm Q15M PRN PO DECREASED GLUCOSE; Start 10/02/18 at 22:00 Glucose (Glutose) 22.5 gm Q15M PRN PO DECREASED GLUCOSE; Start 10/02/18 at 22:00 Dextrose (D50w Syringe) 25 ml Q15M PRN IV DECREASED GLUCOSE Last administered on 10/12/18at 20:44; Admin Dose 25 ML; Start 10/02/18 at 22:00 Dextrose (D50w Syringe) 50 ml Q15M PRN IV DECREASED GLUCOSE Last administered on 10/12/18at 18:15; Admin Dose 50 ML; Start 10/02/18 at 22:00 Glucagon (Glucagen) 1 mg Q15M PRN IM DECREASED GLUCOSE; Start 10/02/18 at 22:00 Glucose (Glutose) 15 gm Q15M PRN BUCCAL DECREASED GLUCOSE; Start 10/02/18 at 22:00 Diagnostic Test (Pha) (Accu-Chek) 1 ea AC MEALS AND BEDTIME XX Last administered on 10/20/18 20:41; Admin Dose 1 EA; Start 10/03/18 at 17:05 Calcium Carbonate (Tums) 500 mg Q4 PRN PO epigastric pain Last administered on 10/16/18 11:32; Admin Dose 500 MG; Start 10/05/18 at 01:30 Pantoprazole (Protonix Tab) 40 mg DAILY@06 PO Last administered on 10/21/18 05:17; Admin Dose 40 MG; Start 10/06/18 at 06:00 Lactobacillus Acidophilus/ Rhamnosus (Culturelle) 1 cap BID PO Last administered on 10/21/18 08:35; Admin Dose 1 CAP; Start 10/08/18 at 21:00 Acetaminophen/ Hydrocodone Bitart ([place] (10/325)) 1 tab Q6H PRN PO SEVERE PAIN LEVEL 7-10 Last administered on 10/21/18 14:51; Admin Dose 1 TAB; Start 10/08/18 at 14:30 Nicotine (Nicoderm 14 Mg/ 24hr) 1 patch DAILY TRANSDERM Last administered on 10/21/18 08:35; Admin Dose 1 PATCH; Start 10/08/18 at 14:30 Loperamide HCl (Imodium Cap) 2 mg QID PRN PO DIARRHEA; Start 10/09/18 at 12:11 Atorvastatin Calcium (Lipitor) 20 mg QHS PO Last administered on 10/20/18 20:39; Admin Dose 20 MG; Start 10/15/18 at 21:00 Hydrocortisone (Anusol-Hc Supp) 25 mg TID PRN [place] HEMORROID PAIN/ITCHING; Start 10/09/18 at 13:30 Potassium Chloride (Potassium Chloride Pwd/Soln) 20 meq DAILY PO Last administered on 10/21/18 08:35; Admin Dose 20 MEQ; Start 10/09/18 at 13:30 Enoxaparin Sodium (Lovenox) 40 mg DAILY SC Last administered on 10/21/18 08:40; Admin Dose 40 MG; Start 10/14/18 at 09:00 Aspirin (Halfprin) 81 mg DAILY PO Last administered on 10/21/18 08:35; Admin Dose 81 MG; Start 10/14/18 at 14:00 Metoclopramide HCl (Reglan) 5 mg TID PO Last administered on 10/21/18 12:34; Admin Dose 5 MG; Start 10/13/18 at 13:00 Sucralfate (Carafate) 1 gm QID PO Last administered on 10/21/18 12:34; Admin Dose 1 GM; Start 10/13/18 at 13:00 Insulin Aspart (Novolog Insulin Pen) 5 unit WITH MEALS SC Last administered on 10/21/18 12:36; Admin Dose 5 UNIT; Start 10/13/18 at 18:00 Insulin Glargine (Lantus) 15 units DAILY@0800 SC Last administered on 10/21/18 08:39; Admin Dose 15 UNITS; Start 10/14/18 at 08:00 Lisinopril (Zestril) 10 mg DAILY PO Last administered on 10/21/18 08:35; Admin Dose 10 MG; Start 10/15/18 at 09:00 Morphine Sulfate (morphine) 6 mg Q4H PRN PO SEVERE PAIN LEVEL 7-10 Last administered on 10/19/18 17:12; Admin Dose 6 MG; Start 10/15/18 at 15:30 Paroxetine HCl (Paxil) 20 mg DAILY PO Last administered on 10/21/18 08:34; Admin Dose 20 MG; Start 10/17/18 at 09:00 Buspirone HCl (Buspar) 10 mg BID PO Last administered on 10/21/18 08:34; Admin Dose 10 MG; Start 10/16/18 at 21:00 Furosemide (Lasix) 20 mg DAILY IV Last administered on 10/21/18 08:35; Admin Dose 20 MG; Start 10/17/18 at 13:30 Metronidazole (Flagyl) 500 mg Q8 PO Last administered on 10/21/18 14:51; Admin Dose 500 MG; Start 10/18/18 at 14:00 Ciprofloxacin (Cipro) 500 mg BID@06,18 PO Last administered on 10/20/18 20:40; Admin Dose 500 MG; Start 10/18/18 at 18:00 Insulin Aspart (Novolog Insulin Pen) (Adult SC Insulin - Moder... Q4 SC Last administered on 10/21/18 12:37; Admin Dose 6 UNIT; Start 10/19/18 at 01:00 Vitamin A/Vitamin D (Vitamin A & D Oint) 1 applic BID PRN TOP DRYNESS; Start 10/21/18 at 10:30 Nystatin (Nystatin Powder) 1 applic BID TOP ; Start 10/21/18 at 21:00 HERRERA SALDAÑA NP Oct 21, 2018 16:40
[2018-10-21] MEDS: CIPROFLOXACIN 500 MG TAB PO SCH (17:20)
[2018-10-21 19:46] VITALS: BP 155/53; PULSE 57; RESP 18
[2018-10-21 19:54] VITALS: BP 122/80; PULSE 77; RESP 18
[2018-10-21] MEDS: ATORVASTATIN 20 MG TAB PO SCH (20:13)
[2018-10-21] MEDS: NYSTATIN 30 GM POWDER BTL TOP SCH (20:14)
[2018-10-21] MEDS: morphine LIQ (10 MG/5 ML) CUP PO PRN (20:15)
[2018-10-21] MEDS ORDERED: NAPHAZOLINE 0.012% 15 ML OPH BOTH EYES SCH (21:30)
[2018-10-22] MEDS: Insulin NOVOLOG SS MODERATE Algorithm(NPO/TPN/ENTERAL FEEDS) SC SCH ×6 (00:05→19:51)
[2018-10-22] MEDS: NAPHAZOLINE 0.012% 15 ML OPH RIGHT EYE SCH ×2 (01:20→05:09)
[2018-10-22 02:00] VITALS: BP 125/77; PULSE 100; RESP 18
[2018-10-22] MEDS: HYDROCODONE/APAP (10/325) TAB PO PRN ×2 (02:55→20:51)
[2018-10-22] MEDS: morphine LIQ (10 MG/5 ML) CUP PO PRN (05:00)
[2018-10-22] MEDS: metroNIDAZOLE 500 MG TAB PO SCH ×2 (05:06→14:24)
[2018-10-22] MEDS: PANTOPRAZOLE (EC) 40 MG TAB PO SCH (05:07)
[2018-10-22] MEDS: CIPROFLOXACIN 500 MG TAB PO SCH ×2 (05:07→17:27)
[2018-10-22] MEDS: ACCU-CHEK XX SCH ×4 (07:00→20:47)
[2018-10-22 08:24] VITALS: BP 121/68; PULSE 96; RESP 18
[2018-10-22] MEDS: POTASSIUM CHLORIDE 20 MEQ POWDER FOR ORAL SOLN PO SCH (08:24)
[2018-10-22] MEDS: PAROXETINE 20 MG TAB PO SCH (08:26)
[2018-10-22] MEDS: LACTOBACILLUS RHAMNOSUS CAP PO SCH ×2 (08:26→20:49)
[2018-10-22] MEDS: METOCLOPRAMIDE 5 MG TAB PO SCH ×3 (08:26→20:50)
[2018-10-22] MEDS: ASPIRIN (EC) 81 MG TAB PO SCH (08:26)
[2018-10-22] MEDS: SUCRALFATE 1 GM TAB PO SCH ×4 (08:26→20:49)
[2018-10-22] MEDS: GABAPENTIN 300 MG CAP PO SCH ×3 (08:26→20:50)
[2018-10-22] MEDS: NICOTINE (14 MG/24 HR) PATCH TRANSDERM SCH (08:26)
[2018-10-22] MEDS: BUSPIRONE 5 MG TAB PO SCH ×2 (08:26→20:49)
[2018-10-22] MEDS: LISINOPRIL 10 MG TAB PO SCH (08:26)
[2018-10-22] MEDS: FUROSEMIDE 20 MG INJ IV SCH (08:27)
[2018-10-22] MEDS: INSULIN ASPART [NOVOLOG] 3 ML PEN SC SCH ×4 (08:29→18:00)
[2018-10-22] MEDS: ENOXAPARIN 40 MG/0.4 ML SYG SC SCH (08:31)
[2018-10-22] MEDS: INSULIN GLARGINE [LANTus] (100 UNITS/ML) SYG SC SCH (08:31)
[2018-10-22] MEDS: NYSTATIN 30 GM POWDER BTL TOP SCH ×2 (08:59→20:50)
--- NOTE | 2018-10-22 10:33 | CONS ---
Assessment/Plan Assessment/Plan Hospital Course (Demo Recall) #Anemia -pt is now confirmed to have Beta Thalassemia which is certainly a contributing factor to his microcytic anemia -initially pt was noted to have a low iron saturation in the setting of a high ferritin and low TIBC. THus there is also a component of chronic inflammation from the underlying liver abscess and diabetes, as well as a component of iron deficiency. now s/p 10 days of IV iron -EGD and coloscopy did not reveal evidence of active GI bleed although colon prep was suboptimal -there does not seem to be evidence of hemolysis given the elevated haptoglobin -negative SPEP rules out monoclonal gammopathy -patient's epo level is elevated. I do not feel he would benefit from procrit at this time #Liver abscess -this is the likely cause of the elevated alk phos. negative bone scan is noted -s/p IR guided drainage x 2 of the liver abscess -continue abx for liver abscess #DM -uncontrolled -continue insulin per primary team #Bipolar -continue mood stabilizers -continue mood stabilizers Consultation Date/Type/Reason Admit Date/Time Oct 02, 2018 at 00:05 Initial Consult Date 10/04/18 Type of Consult Hematology Reason for Consultation anemia Requesting Provider: HERRERA SALDAÑA NP Date/Time of Note DATE: 10/22/18 TIME: 10:31 24 HR Interval Summary Free Text/Dictation no acute overnight events. pt had CT guided abscess drainage last week Exam/Review of Systems Exam Vitals Vital Signs Date Temp Pulse Resp B/P (MAP) Pulse Ox O2 O2 Flow FiO2 Time Delivery Rate 10/22/18 98.0 96 18 121/68 99 08:24 (85) 10/19/18 Room Air 10:47 Intake and Output 10/21/18 10/21/18 10/22/18 1515:00 23:00 07:00 IntakeIntake Total 1560 ml 830 ml 500 ml OutputOutput Total 795 ml 1050 ml 2420 ml BalanceBalance 765 ml -220 ml -1920 ml Constitutional: alert, oriented, distress Psych: anxiety, depression Head: normocephalic Eyes: nl conjunctiva ENMT: nl external ears & nose Neck: supple Respiratory: clear to auscultation Cardiovascular: regular rate and rhythm Gastrointestinal: other (acordian drain in place) Musculoskeletal: nl extremities to inspection Extremities: normal pulses Results Result Diagram: 3/11/19 0725 10/22/18 0725 Results 24hrs Laboratory Tests Test 10/21/18 12:31 10/21/18 17:18 10/21/18 18:22 10/21/18 20:11 Bedside Glucose 235 H 103 96 101 Test 10/22/18 00:03 10/22/18 05:04 10/22/18 07:25 10/22/18 08:24 Bedside Glucose 152 227 H 224 H White Blood Count 10.9 H Red Blood Count 3.55 L Hemoglobin 8.5 L Hematocrit 28.2 L Mean Corpuscular 79.4 L Volume Mean Corpuscular 23.9 L Hemoglobin Mean Corpuscular 30.1 L Hemoglobin Concent Red Cell 15.9 H Distribution Width Platelet Count 422 #H Mean Platelet Volume 10.6 H Immature 1.800 H Granulocytes % Neutrophils % 74.2 Segmented 71 Neutrophils % (Manual) Band Neutrophils % 2 (Manual) Lymphocytes % 14.9 L Lymphocytes % 20 (Manual) Monocytes % 7.5 Monocytes % (Manual) 7 Eosinophils % 0.9 Basophils % 0.7 Nucleated Red Blood 1 H Cells % Immature 0.200 H Granulocytes # Neutrophils # 8.1 H Neutrophils # 7.8 H (Manual) Band Neutrophils # 0.2 Lymphocytes (Manual) 2.1 Lymphocytes # 1.6 Monocytes # 0.8 Monocytes # (Manual) 0.7 Eosinophils # 0.1 Basophils # 0.1 Nucleated Red Blood 0.0 Cells # Platelet Estimate NORMAL Polychromasia 2+ Hypochromasia 1+ Poikilocytosis 2+ Anisocytosis 2+ Microcytosis 2+ Sodium Level 135 Potassium Level 4.8 Chloride Level 96 L Carbon Dioxide Level 29 Anion Gap 10 Blood Urea Nitrogen 20 Creatinine 0.47 L Est Glomerular > 60 Filtrat Rate mL/min Glucose Level 180 Calcium Level 9.0 Phosphorus Level 4.0 Magnesium Level 2.1 Medications Medication Current Medications Gabapentin (Neurontin) 300 mg TID PO Last administered on 10/22/18at 08:26; Admin Dose 300 MG; Start 10/02/18 at 09:00 Ondansetron HCl (Zofran Inj) 4 mg Q6H PRN IV NAUSEA AND/OR VOMITING; Start 10/02/18 at 02:00 Albuterol (Proventil 0.083% (Neb)) 2.5 mg Q2H RESP THERAPY PRN NEB SHORTNESS OF BREATH; Start 10/02/18 at 02:00 Acetaminophen (Tylenol Liquid) 650 mg Q6H PRN PO PAIN LEVEL 1-3 OR FEVER Last administered on 10/14/18 07:57; Admin Dose 650 MG; Start 10/02/18 at 02:00 Menthol/Methyl Salicylate (Memo Erazo) 1 applic TID PRN TOP pain; Start 10/02/18 at 06:30 Tramadol HCl (Ultram) 50 mg Q6H PRN PO MODERATE PAIN LEVEL 4-6 Last administered on 10/19/18 10:27; Admin Dose 50 MG; Start 10/02/18 at 11:00 Potassium Chloride (Potassium Chloride Pwd/Soln) 20 meq PER PROTOCOL PRN PO POTASSIUM REPLACEMENT PROTOCOL; Start 10/02/18 at 11:30 Potassium Chloride (Potassium Chloride Pwd/Soln) 30 meq PER PROTOCOL PRN PO POTASSIUM REPLACEMENT PROTOCOL; Start 10/02/18 at 11:30 Potassium Chloride (Potassium Chloride Pwd/Soln) 40 meq PER PROTOCOL PRN PO POTASSIUM REPLACEMENT PROTOCOL; Start 10/02/18 at 11:30 Miscellaneous Information 1 ea NOTE XX ; Start 10/02/18 at 22:00 Glucose (Glutose) 15 gm Q15M PRN PO DECREASED GLUCOSE; Start 10/02/18 at 22:00 Glucose (Glutose) 22.5 gm Q15M PRN PO DECREASED GLUCOSE; Start 10/02/18 at 22:00 Dextrose (D50w Syringe) 25 ml Q15M PRN IV DECREASED GLUCOSE Last administered on 10/12/18 20:44; Admin Dose 25 ML; Start 10/02/18 at 22:00 Dextrose (D50w Syringe) 50 ml Q15M PRN IV DECREASED GLUCOSE Last administered on 10/12/18 18:15; Admin Dose 50 ML; Start 10/02/18 at 22:00 Glucagon (Glucagen) 1 mg Q15M PRN IM DECREASED GLUCOSE; Start 10/02/18 at 22:00 Glucose (Glutose) 15 gm Q15M PRN BUCCAL DECREASED GLUCOSE; Start 10/02/18 at 22:00 Diagnostic Test (Pha) (Accu-Chek) 1 ea AC MEALS AND BEDTIME XX Last administered on 10/21/18 20:14; Admin Dose 1 EA; Start 10/03/18 at 17:05 Calcium Carbonate (Tums) 500 mg Q4 PRN PO epigastric pain Last administered on 10/16/18 11:32; Admin Dose 500 MG; Start 10/05/18 at 01:30 Pantoprazole (Protonix Tab) 40 mg DAILY@06 PO Last administered on 10/22/18 05:07; Admin Dose 40 MG; Start 10/06/18 at 06:00 Lactobacillus Acidophilus/ Rhamnosus (Culturelle) 1 cap BID PO Last administered on 10/22/18 08:26; Admin Dose 1 CAP; Start 10/08/18 at 21:00 Acetaminophen/ Hydrocodone Bitart ([place] (10325)) 1 tab Q6H PRN PO SEVERE PAIN LEVEL 7-10 Last administered on 10/22/18 02:55; Admin Dose 1 TAB; Start 10/08/18 at 14:30 Nicotine (Nicoderm 14 Mg/ 24hr) 1 patch DAILY TRANSDERM Last administered on 10/22/18 08:26; Admin Dose 1 PATCH; Start 10/08/18 at 14:30 Loperamide HCl (Imodium Cap) 2 mg QID PRN PO DIARRHEA; Start 10/09/18 at 12:11 Atorvastatin Calcium (Lipitor) 20 mg QHS PO Last administered on 10/21/18 20:13; Admin Dose 20 MG; Start 10/15/18 at 21:00 Hydrocortisone (Anusol-Hc Supp) 25 mg TID PRN [place] HEMORROID PAIN/ITCHING; Start 10/09/18 at 13:30 Potassium Chloride (Potassium Chloride Pwd/Soln) 20 meq DAILY PO Last administe red on 10/22/18 08:24; Admin Dose 20 MEQ; Start 10/09/18 at 13:30 Enoxaparin Sodium (Lovenox) 40 mg DAILY SC Last administered on 10/22/18 08:31; Admin Dose 40 MG; Start 10/14/18 at 09:00 Aspirin (Halfprin) 81 mg DAILY PO Last administered on 10/22/18 08:26; Admin Dose 81 MG; Start 10/14/18 at 14:00 Metoclopramide HCl (Reglan) 5 mg TID PO Last administered on 10/22/18 08:26; Admin Dose 5 MG; Start 10/13/18 at 13:00 Sucralfate (Carafate) 1 gm QID PO Last administered on 10/22/18 08:26; Admin Dose 1 GM; Start 10/13/18 at 13:00 Insulin Aspart (Novolog Insulin Pen) 5 unit WITH MEALS SC Last administered on 10/22/18 08:29; Admin Dose 5 UNIT; Start 10/13/18 at 18:00 Insulin Glargine (Lantus) 15 units DAILY@0800 SC Last administered on 10/22/18 08:31; Admin Dose 15 UNITS; Start 10/14/18 at 08:00 Lisinopril (Zestril) 10 mg DAILY PO Last administered on 10/22/18 08:26; Admin Dose 10 MG; Start 10/15/18 at 09:00 Morphine Sulfate (morphine) 6 mg Q4H PRN PO SEVERE PAIN LEVEL 7-10 Last adm inistered on 10/22/18 05:00; Admin Dose 6 MG; Start 10/15/18 at 15:30 Paroxetine HCl (Paxil) 20 mg DAILY PO Last administered on 10/22/18 08:26; Admin Dose 20 MG; Start 10/17/18 at 09:00 Buspirone HCl (Buspar) 10 mg BID PO Last administered on 10/22/18 08:26; Admin Dose 10 MG; Start 10/16/18 at 21:00 Furosemide (Lasix) 20 mg DAILY IV Last administered on 10/22/18 08:27; Admin Dose 20 MG; Start 10/17/18 at 13:30 Metronidazole (Flagyl) 500 mg Q8 PO Last administered on 10/22/18 05:06; Admin Dose 500 MG; Start 10/18/18 at 14:00 Ciprofloxacin (Cipro) 500 mg BID@06,18 PO Last administered on 10/22/18 05:07; Admin Dose 500 MG; Start 10/18/18 at 18:00 Insulin Aspart (Novolog Insulin Pen) (Adult SC Insulin - Moder... Q4 SC Last administered on 10/22/18 08:30; Admin Dose 6 UNIT; Start 10/19/18 at 01:00 Vitamin A/Vitamin D (Vitamin A & D Oint) 1 applic BID PRN TOP DRYNESS; Start 10/21/18 at 10:30 Nystatin (Nystatin Powder) 1 applic BID TOP Last administered on 10/22/18at 08:59; Admin Dose 1 APPLIC; Start 10/21/18 at 21:00 Naphazoline HCl (Clear Eyes / Naphcon) 2 drop Q4H RIGHT EYE Last administered on 10/22/18at 05:09; Admin Dose 2 DROP; Start 10/22/18 at 01:30 MAYA CASTILLO M.D. Oct 22, 2018 10:33
[2018-10-22] MEDS: [UNRECOGNIZED DRUG - OTHER] RIGHT EYE SCH ×3 (14:24→20:50)
--- NOTE | 2018-10-22 16:11 | PN ---
Date/Time of Note Date/Time of Note DATE: 10/22/18 TIME: 16:07 Assessment/Plan VTE Prophylaxis Risk score (from Nsg)>0 risk: 3 SCD applied (from Nsg): No SCD contraindicated: low risk/ambulating Pharmacological prophylaxis: LMWH Lines/Catheters IV Catheter Type (from Nrsg): Peripheral IV Urinary Cath still in place: No Assessment/Plan Hospital Course A/P 1. DKA vs hyperosmolar hyperglycemic state, stable/ improved cont insulin 2. Nonadherence, sp multiple sessions of counseling. Adjusted insulin/ diet. Definitely will be challenging/high risk of future DKA. 3. Abn LFTs/imaging. Abscess, sp aspiration *2, klebsiella. on po's. due to nonadherence, hopefully we can dc on po's. cont drain care. 4. Homeless/ ftt, may need placement; options have been given in the past but he continues to reside at his previous place of living. 5. Tobacco abuse, sp counseling offered patch 6. Bipolar dz/ mod stable observe 7. Hepatic nodule? 8. Dyslipidemia/metabolic syndrome 9. Anemia combination jolene and possible chr. stable observe. sp EGD/ colon. Gastritis but no active bleed. 10. Hypertension? 11. Diarrhea, c dif -ve. DC senna, sp endoscopy. 12. Subacute vision loss Rt. Present MRI - Ischemic stroke. stable, Continue risk factor modification. 13. Ac/subacute ischemic stroke. stable cont rfm. sp carotids/ echo. 14. Possible aspiration pneumonia due to stroke vs impulse eating/ behavior, ST consulted. Finishing antibiotics. 15. 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 Ascites, continue Lasix and beta-asher 17. Thalassemia stable observe Subjective: 10/08 no fever nausea vomiting toxicity, following commands. wants more food/ calories 10/09; diarrhea; denies george abd pain. 10/10: No distress no events. 10/11: Nonadherence to diet medications imaging and diagnostic studies. Took GI prep however had diarrhea 10/12: Sugar in the 70s controlled while n.p.o. No nausea vomiting. No chest pain. Subjective dizziness but vitals findings are negative. Fever noted. Colonoscopy today 10/13: Patient stated he had transient vision disturbance. Similar issue in past. Other [place] nonfocal. Right eye discomfort noted. 3/3: Fever overnight. Possible aspiration pneumonia. Start empiric antibiotics appreciate ST david 10/22: Denies any distress except abdominal pain. Probably ruq drain related. No dyspnea fever. Mood much better/stable, not as demanding. O: Vss PE No pallor/ icterus, carotid bruit JVD droop Regular no mrg Clear Benign nt nd; no rrg drain c/d/i No edema Neuro: Grossly nonfocal Disposition: hopefully able to dc on po antibiotics for his abscess. He will probably go back to his previous living situation; drain, may need snf. Result Diagram: 10/22/18 0725 10/22/18 0725 Results 24hrs Laboratory Tests Test 10/21/18 17:18 10/21/18 18:22 10/21/18 20:11 10/22/18 00:03 Bedside Glucose 103 96 101 152 Test 10/22/18 05:04 10/22/18 07:25 10/22/18 08:24 10/22/18 12:38 Bedside Glucose 227 H 224 H 150 White Blood Count 10.9 H Red Blood Count 3.55 L Hemoglobin 8.5 L Hematocrit 28.2 L Mean Corpuscular 79.4 L Volume Mean Corpuscular 23.9 L Hemoglobin Mean Corpuscular 30.1 L Hemoglobin Concent Red Cell 15.9 H Distribution Width Platelet Count 422 #H Mean Platelet Volume 10.6 H Immature 1.800 H Granulocytes % Neutrophils % 74.2 Segmented 71 Neutrophils % (Manual) Band Neutrophils % 2 (Manual) Lymphocytes % 14.9 L Lymphocytes % 20 (Manual) Monocytes % 7.5 Monocytes % (Manual) 7 Eosinophils % 0.9 Basophils % 0.7 Nucleated Red Blood 1 H Cells % Immature 0.200 H Granulocytes # Neutrophils # 8.1 H Neutrophils # 7.8 H (Manual) Band Neutrophils # 0.2 Lymphocytes (Manual) 2.1 Lymphocytes # 1.6 Monocytes # 0.8 Monocytes # (Manual) 0.7 Eosinophils # 0.1 Basophils # 0.1 Nucleated Red Blood 0.0 Cells # Platelet Estimate NORMAL Polychromasia 2+ Hypochromasia 1+ Poikilocytosis 2+ Anisocytosis 2+ Microcytosis 2+ Sodium Level 135 Potassium Level 4.8 Chloride Level 96 L Carbon Dioxide Level 29 Anion Gap 10 Blood Urea Nitrogen 20 Creatinine 0.47 L Est Glomerular > 60 Filtrat Rate mL/min Glucose Level 180 Calcium Level 9.0 Phosphorus Level 4.0 Magnesium Level 2.1 Exam/Review of Systems Exam Vitals Vital Signs Date Temp Pulse Resp B/P (MAP) Pulse Ox O2 O2 Flow FiO2 Time Delivery Rate 10/22/18 98.0 96 18 121/68 99 08:24 (85) 10/19/18 Room Air 10:47 Intake and Output 10/21/18 10/21/18 10/22/18 1515:00 23:00 07:00 IntakeIntake Total 1560 ml 830 ml 500 ml OutputOutput Total 795 ml 1050 ml 2420 ml BalanceBalance 765 ml -220 ml -1920 ml Results Results 24hrs Laboratory Tests Test 10/21/18 17:18 10/21/18 18:22 10/21/18 20:11 10/22/18 00:03 Bedside Glucose 103 96 101 152 Test 10/22/18 05:04 10/22/18 07:25 10/22/18 08:24 10/22/18 12:38 Bedside Glucose 227 H 224 H 150 White Blood Count 10.9 H Red Blood Count 3.55 L Hemoglobin 8.5 L Hematocrit 28.2 L Mean Corpuscular 79.4 L Volume Mean Corpuscular 23.9 L Hemoglobin Mean Corpuscular 30.1 L Hemoglobin Concent Red Cell 15.9 H Distribution Width Platelet Count 422 #H Mean Platelet Volume 10.6 H Immature 1.800 H Granulocytes % Neutrophils % 74.2 Segmented 71 Neutrophils % (Manual) Band Neutrophils % 2 (Manual) Lymphocytes % 14.9 L Lymphocytes % 20 (Manual) Monocytes % 7.5 Monocytes % (Manual) 7 Eosinophils % 0.9 Basophils % 0.7 Nucleated Red Blood 1 H Cells % Immature 0.200 H Granulocytes # Neutrophils # 8.1 H Neutrophils # 7.8 H (Manual) Band Neutrophils # 0.2 Lymphocytes (Manual) 2.1 Lymphocytes # 1.6 Monocytes # 0.8 Monocytes # (Manual) 0.7 Eosinophils # 0.1 Basophils # 0.1 Nucleated Red Blood 0.0 Cells # Platelet Estimate NORMAL Polychromasia 2+ Hypochromasia 1+ Poikilocytosis 2+ Anisocytosis 2+ Microcytosis 2+ Sodium Level 135 Potassium Level 4.8 Chloride Level 96 L Carbon Dioxide Level 29 Anion Gap 10 Blood Urea Nitrogen 20 Creatinine 0.47 L Est Glomerular > 60 Filtrat Rate mL/min Glucose Level 180 Calcium Level 9.0 Phosphorus Level 4.0 Magnesium Level 2.1 Medications Medication Current Medications Gabapentin (Neurontin) 300 mg TID PO Last administered on 10/22/18at 12:43; Admi n Dose 300 MG; Start 10/02/18 at 09:00 Ondansetron HCl (Zofran Inj) 4 mg Q6H PRN IV NAUSEA AND/OR VOMITING; Start 10/02/18 at 02:00 Albuterol (Proventil 0.083% (Neb)) 2.5 mg Q2H RESP THERAPY PRN NEB SHORTNESS OF BREATH; Start 10/02/18 at 02:00 Acetaminophen (Tylenol Liquid) 650 mg Q6H PRN PO PAIN LEVEL 1-3 OR FEVER Last administered on 10/14/18at 07:57; Admin Dose 650 MG; Start 10/02/18 at 02:00 Menthol/Methyl Salicylate (Memo Erazo) 1 applic TID PRN TOP pain; Start 10/02/18 at 06:30 Tramadol HCl (Ultram) 50 mg Q6H PRN PO MODERATE PAIN LEVEL 4-6 Last administered on 10/19/18at 10:27; Admin Dose 50 MG; Start 10/02/18 at 11:00 Potassium Chloride (Potassium Chloride Pwd/Soln) 20 meq PER PROTOCOL PRN PO POTASSIUM REPLACEMENT PROTOCOL; Start 10/02/18 at 11:30 Potassium Chloride (Potassium Chloride Pwd/Soln) 30 meq PER PROTOCOL PRN PO POTASSIUM REPLACEMENT PROTOCOL; Start 10/02/18 at 11:30 Potassium Chloride (Potassium Chloride Pwd/Soln) 40 meq PER PROTOCOL PRN PO POTASSIUM REPLACEMENT PROTOCOL; Start 10/02/18 at 11:30 Miscellaneous Information 1 ea NOTE XX ; Start 10/02/18 at 22:00 Glucose (Glutose) 15 gm Q15M PRN PO DECREASED GLUCOSE; Start 10/02/18 at 22:00 Glucose (Glutose) 22.5 gm Q15M PRN PO DECREASED GLUCOSE; Start 10/02/18 at 22:00 Dextrose (D50w Syringe) 25 ml Q15M PRN IV DECREASED GLUCOSE Last administered on 10/12/18at 20:44; Admin Dose 25 ML; Start 10/02/18 at 22:00 Dextrose (D50w Syringe) 50 ml Q15M PRN IV DECREASED GLUCOSE Last administered on 10/12/18 18:15; Admin Dose 50 ML; Start 10/02/18 at 22:00 Glucagon (Glucagen) 1 mg Q15M PRN IM DECREASED GLUCOSE; Start 10/02/18 at 22:00 Glucose (Glutose) 15 gm Q15M PRN BUCCAL DECREASED GLUCOSE; Start 10/02/18 at 22:00 Diagnostic Test (Pha) (Accu-Chek) 1 ea AC MEALS AND BEDTIME XX Last administered on 10/21/18 20:14; Admin Dose 1 EA; Start 10/03/18 at 17:05 Calcium Carbonate (Tums) 500 mg Q4 PRN PO epigastric pain Last administered on 10/16/18 11:32; Admin Dose 500 MG; Start 10/05/18 at 01:30 Pantoprazole (Protonix Tab) 40 mg DAILY@06 PO Last administered on 10/22/18 05:07; Admin Dose 40 MG; Start 10/06/18 at 06:00 Lactobacillus Acidophilus/ Rhamnosus (Culturelle) 1 cap BID PO Last administered on 10/22/18 08:26; Admin Dose 1 CAP; Start 10/08/18 at 21:00 Acetaminophen/ Hydrocodone Bitart ([place] (10/325)) 1 tab Q6H PRN PO SEVERE PAIN LEVEL 7-10 Last administered on 10/22/18 02:55; Admin Dose 1 TAB; Start 10/08/18 at 14:30 Nicotine (Nicoderm 14 Mg/ 24hr) 1 patch DAILY TRANSDERM Last administered on 10/22/18 08:26; Admin Dose 1 PATCH; Start 10/08/18 at 14:30 Loperamide HCl (Imodium Cap) 2 mg QID PRN PO DIARRHEA; Start 10/09/18 at 12:11 Atorvastatin Calcium (Lipitor) 20 mg QHS PO Last administered on 10/21/18 20:13; Admin Dose 20 MG; Start 10/15/18 at 21:00 Hydrocortisone (Anusol-Hc Supp) 25 mg TID PRN [place] HEMORROID PAIN/ITCHING; Start 10/09/18 at 13:30 Potassium Chloride (Potassium Chloride Pwd/Soln) 20 meq DAILY PO Last administered on 10/22/18 08:24; Admin Dose 20 MEQ; Start 10/09/18 at 13:30 Enoxaparin Sodium (Lovenox) 40 mg DAILY SC Last administered on 10/22/18 08:31; Admin Dose 40 MG; Start 10/14/18 at 09:00 Aspirin (Halfprin) 81 mg DAILY PO Last administered on 10/22/18 08:26; Admin Dose 81 MG; Start 10/14/18 at 14:00 Metoclopramide HCl (Reglan) 5 mg TID PO Last administered on 10/22/18 12:43; Admin Dose 5 MG; Start 10/13/18 at 13:00 Sucralfate (Carafate) 1 gm QID PO Last administered on 10/22/18 12:43; Admin Dose 1 GM; Start 10/13/18 at 13:00 Lisinopril (Zestril) 10 mg DAILY PO Last administered on 10/22/18 08:26; Admin Dose 10 MG; Start 10/15/18 at 09:00 Morphine Sulfate (morphine) 6 mg Q4H PRN PO SEVERE PAIN LEVEL 7-10 Last administered on 10/22/18 05:00; Admin Dose 6 MG; Start 10/15/18 at 15:30 Paroxetine HCl (Paxil) 20 mg DAILY PO Last administered on 10/22/18 08:26; Admin Dose 20 MG; Start 10/17/18 at 09:00 Buspirone HCl (Buspar) 10 mg BID PO Last administered on 10/22/18 08:26; Admin Dose 10 MG; Start 10/16/18 at 21:00 Furosemide (Lasix) 20 mg DAILY IV Last administered on 10/22/18 08:27; Admin Dose 20 MG; Start 10/17/18 at 13:30 Metronidazole (Flagyl) 500 mg Q8 PO Last administered on 10/22/18 14:24; Admin Dose 500 MG; Start 10/18/18 at 14:00 Ciprofloxacin (Cipro) 500 mg BID@06,18 PO Last administered on 10/22/18 05:07; Admin Dose 500 MG; Start 10/18/18 at 18:00 Insulin Aspart (Novolog Insulin Pen) (Adult SC Insulin - Moder... Q4 SC Last administered on 10/22/18 12:41; Admin Dose 2 UNIT; Start 10/19/18 at 01:00 Vitamin A/Vitamin D (Vitamin A & D Oint) 1 applic BID PRN TOP DRYNESS; Start 10/21/18 at 10:30 Nystatin (Nystatin Powder) 1 applic BID TOP Last administered on 10/22/18at 08:59; Admin Dose 1 APPLIC; Start 10/21/18 at 21:00 Non-Formulary Medication 2 ea Q4H RIGHT EYE Last administered on 10/22/18at 14:24; Admin Dose 2 EA; Start 10/22/18 at 13:00 Insulin Aspart (Novolog Insulin Pen) 4 unit WITH MEALS SC ; Start 10/22/18 at 18:00; Status UNV Insulin Glargine (Lantus) 12 units DAILY@0800 SC ; Start 10/23/18 at 08:00; Status UNV Lactobacillus Acidophilus/ Rhamnosus (Culturelle) 1 cap BID PO ; Start 10/22/18 at 21:00; Status UNV MARKO PAYAN MD Oct 22, 2018 16:11
[2018-10-22 20:00] VITALS: BP 120/82; PULSE 103; RESP 18
--- NOTE | 2018-10-22 20:01 | CONS ---
Assessment/Plan Assessment/Plan Hospital Course (Demo Recall) Patient is more awake today with poor appetite, no fevers. WBC 10.9 platelets 422 neutrophils 74.2 BUN 20 creatinine 0.47 Abdominal fluid culture growing Klebsiella pneumonia, no anaerobes Antimicrobials: Cipro Flagyl Physical examination: Well-developed elderly -[place] man in no distress. Head atraumatic normocephalic neck is supple chest rise symmetrical breath sounds diminished bases heart S1-S2 abdomen obese soft bowel sounds present extremities without cyanosis Assessment: 1. S/p sepsis 2. Liver abscesses ==> s/p repeated IR guided aspiration with catheter placement 3. S/p healthcare associated pneumonia 4. Diabetes, poorly controlled 5. Hypertension 6. Bipolar disorder and homelessness 7. Poss retention/cystitis 8. Constipation 9. Anemia/Beta Thalassemia Plan: Clinically stable, continue abx, continue pigtail flushing, DC Flagyl Consultation Date/Type/Reason Admit Date/Time Oct 02, 2018 at 00:05 Initial Consult Date 10/04/18 Type of Consult id Requesting Provider: HERRERA SALDAÑA NP Date/Time of Note DATE: 10/22/18 TIME: 20:00 Exam/Review of Systems Exam Vitals Vital Signs Date Temp Pulse Resp B/P (MAP) Pulse Ox O2 O2 Flow FiO2 Time Delivery Rate 10/22/18 98.0 96 18 121/68 99 08:24 (85) 10/19/18 Room Air 10:47 Intake and Output 10/21/18 10/21/18 10/22/18 1515:00 23:00 07:00 IntakeIntake Total 1560 ml 830 ml 500 ml OutputOutput Total 795 ml 1050 ml 2420 ml BalanceBalance 765 ml -220 ml -1920 ml Results Result Diagram: 10/22/18 0725 10/22/18 0725 Results 24hrs Laboratory Tests Test 10/21/18 20:11 10/22/18 00:03 10/22/18 05:04 10/22/18 07:25 Bedside Glucose 101 152 227 H White Blood Count 10.9 H Red Blood Count 3.55 L Hemoglobin 8.5 L Hematocrit 28.2 L Mean Corpuscular 79.4 L Volume Mean Corpuscular 23.9 L Hemoglobin Mean Corpuscular 30.1 L Hemoglobin Concent Red Cell 15.9 H Distribution Width Platelet Count 422 #H Mean Platelet Volume 10.6 H Immature 1.800 H Granulocytes % Neutrophils % 74.2 Segmented 71 Neutrophils % (Manual) Band Neutrophils % 2 (Manual) Lymphocytes % 14.9 L Lymphocytes % 20 (Manual) Monocytes % 7.5 Monocytes % (Manual) 7 Eosinophils % 0.9 Basophils % 0.7 Nucleated Red Blood 1 H Cells % Immature 0.200 H Granulocytes # Neutrophils # 8.1 H Neutrophils # 7.8 H (Manual) Band Neutrophils # 0.2 Lymphocytes (Manual) 2.1 Lymphocytes # 1.6 Monocytes # 0.8 Monocytes # (Manual) 0.7 Eosinophils # 0.1 Basophils # 0.1 Nucleated Red Blood 0.0 Cells # Platelet Estimate NORMAL Polychromasia 2+ Hypochromasia 1+ Poikilocytosis 2+ Anisocytosis 2+ Microcytosis 2+ Sodium Level 135 Potassium Level 4.8 Chloride Level 96 L Carbon Dioxide Level 29 Anion Gap 10 Blood Urea Nitrogen 20 Creatinine 0.47 L Est Glomerular > 60 Filtrat Rate mL/min Glucose Level 180 Calcium Level 9.0 Phosphorus Level 4.0 Magnesium Level 2.1 Test 10/22/18 08:24 10/22/18 12:38 10/22/18 17:25 10/22/18 19:47 Bedside Glucose 224 H 150 83 143 Medications Medication Current Medications Gabapentin (Neurontin) 300 mg TID PO Last administered on 10/22/18at 12:43; Admin Dose 300 MG; Start 10/02/18 at 09:00 Ondansetron HCl (Zofran Inj) 4 mg Q6H PRN IV NAUSEA AND/OR VOMITING; Start 10/02/18 at 02:00 Albuterol (Proventil 0.083% (Neb)) 2.5 mg Q2H RESP THERAPY PRN NEB SHORTNESS OF BREATH; Start 10/02/18 at 02:00 Acetaminophen (Tylenol Liquid) 650 mg Q6H PRN PO PAIN LEVEL 1-3 OR FEVER Last administered on 10/14/18 07:57; Admin Dose 650 MG; Start 10/02/18 at 02:00 Menthol/Methyl Salicylate (Memo Erazo) 1 applic TID PRN TOP pain; Start 10/02/18 at 06:30 Tramadol HCl (Ultram) 50 mg Q6H PRN PO MODERATE PAIN LEVEL 4-6 Last administered on 10/19/18at 10:27; Admin Dose 50 MG; Start 10/02/18 at 11:00 Potassium Chloride (Potassium Chloride Pwd/Soln) 20 meq PER PROTOCOL PRN PO POTASSIUM REPLACEMENT PROTOCOL; Start 10/02/18 at 11:30 Potassium Chloride (Potassium Chloride Pwd/Soln) 30 meq PER PROTOCOL PRN PO POTASSIUM REPLACEMENT PROTOCOL; Start 10/02/18 at 11:30 Potassium Chloride (Potassium Chloride Pwd/Soln) 40 meq PER PROTOCOL PRN PO POTASSIUM REPLACEMENT PROTOCOL; Start 10/02/18 at 11:30 Miscellaneous Information 1 ea NOTE XX ; Start 10/02/18 at 22:00 Glucose (Glutose) 15 gm Q15M PRN PO DECREASED GLUCOSE; Start 10/02/18 at 22:00 Glucose (Glutose) 22.5 gm Q15M PRN PO DECREASED GLUCOSE; Start 10/02/18 at 2 2:00 Dextrose (D50w Syringe) 25 ml Q15M PRN IV DECREASED GLUCOSE Last administered on 10/12/18at 20:44; Admin Dose 25 ML; Start 10/02/18 at 22:00 Dextrose (D50w Syringe) 50 ml Q15M PRN IV DECREASED GLUCOSE Last administered on 10/12/18at 18:15; Admin Dose 50 ML; Start 10/02/18 at 22:00 Glucagon (Glucagen) 1 mg Q15M PRN IM DECREASED GLUCOSE; Start 10/02/18 at 22:00 Glucose (Glutose) 15 gm Q15M PRN BUCCAL DECREASED GLUCOSE; Start 10/02/18 at 22:00 Diagnostic Test (Pha) (Accu-Chek) 1 ea AC MEALS AND BEDTIME XX Last administered on 10/21/18at 20:14; Admin Dose 1 EA; Start 10/03/18 at 17:05 Calcium Carbonate (Tums) 500 mg Q4 PRN PO epigastric pain Last administered on 10/16/18 11:32; Admin Dose 500 MG; Start 10/05/18 at 01:30 Pantoprazole (Protonix Tab) 40 mg DAILY@06 PO Last administered on 10/22/18 05:07; Admin Dose 40 MG; Start 10/06/18 at 06:00 Lactobacillus Acidophilus/ Rhamnosus (Culturelle) 1 cap BID PO Last administered on 10/22/18at 08:26; Admin Dose 1 CAP; Start 10/08/18 at 21:00 Acetaminophen/ Hydrocodone Bitart ([place] (10)) 1 tab Q6H PRN PO SEVERE PAIN LEVEL 7-10 Last administered on 10/22/18 02:55; Admin Dose 1 TAB; Start 10/08/18 at 14:30 Nicotine (Nicoderm 14 Mg/ 24hr) 1 patch DAILY TRANSDERM Last administered on 10/22/18 08:26; Admin Dose 1 PATCH; Start 10/08/18 at 14:30 Loperamide HCl (Imodium Cap) 2 mg QID PRN PO DIARRHEA; Start 10/09/18 at 12:11 Atorvastatin Calcium (Lipitor) 20 mg QHS PO Last administered on 10/21/18 20:13; Admin Dose 20 MG; Start 10/15/18 at 21:00 Hydrocortisone (Anusol-Hc Supp) 25 mg TID PRN [place] HEMORROID PAIN/ITCHING; Start 10/09/18 at 13:30 Potassium Chloride (Potassium Chloride Pwd/Soln) 20 meq DAILY PO Last administered on 10/22/18 08:24; Admin Dose 20 MEQ; Start 10/09/18 at 13:30 Enoxaparin Sodium (Lovenox) 40 mg DAILY SC Last administered on 10/22/18 08:31; Admin Dose 40 MG; Start 10/14/18 at 09:00 Aspirin (Halfprin) 81 mg DAILY PO Last administered on 10/22/18 08:26; Admin Dose 81 MG; Start 10/14/18 at 14:00 Metoclopramide HCl (Reglan) 5 mg TID PO Last administered on 10/22/18 12:43; Admin Dose 5 MG; Start 10/13/18 at 13:00 Sucralfate (Carafate) 1 gm QID PO Last administered on 10/22/18 17:27; Admin D ose 1 GM; Start 10/13/18 at 13:00 Morphine Sulfate (morphine) 6 mg Q4H PRN PO SEVERE PAIN LEVEL 7-10 Last administered on 10/22/18 05:00; Admin Dose 6 MG; Start 10/15/18 at 15:30 Paroxetine HCl (Paxil) 20 mg DAILY PO Last administered on 10/22/18 08:26; Admin Dose 20 MG; Start 10/17/18 at 09:00 Buspirone HCl (Buspar) 10 mg BID PO Last administered on 10/22/18 08:26; Admin Dose 10 MG; Start 10/16/18 at 21:00 Metronidazole (Flagyl) 500 mg Q8 PO Last administered on 10/22/18 14:24; Admin Dose 500 MG; Start 10/18/18 at 14:00 Ciprofloxacin (Cipro) 500 mg BID@06,18 PO Last administered on 10/22/18 17:27; Admin Dose 500 MG; Start 10/18/18 at 18:00 Insulin Aspart (Novolog Insulin Pen) (Adult SC Insulin - Moder... Q4 SC Last administered on 10/22/18 19:51; Admin Dose 2 UNIT; Start 10/19/18 at 01:00 Vitamin A/Vitamin D (Vitamin A & D Oint) 1 applic BID PRN TOP DRYNESS; Start 10/21/18 at 10:30 Nystatin (Nystatin Powder) 1 applic BID TOP Last administered on 10/22/18at 08:59; Admin Dose 1 APPLIC; Start 10/21/18 at 21:00 Non-Formulary Medication 2 ea Q4H RIGHT EYE Last administered on 10/22/18 14:24; Admin Dose 2 EA; Start 10/22/18 at 13:00 Insulin Glargine (Lantus) 12 units DAILY@0800 SC ; Start 10/23/18 at 08:00 Furosemide (Lasix) 40 mg DAILY PO ; Start 10/23/18 at 09:00 Thiamine HCl (Vitamin B1) 100 mg DAILY PO ; Start 10/23/18 at 09:00 Metoprolol Succinate (Toprol Xl) 12.5 mg DAILY PO ; Start 10/23/18 at 21:00 Lisinopril (Zestril) 5 mg DAILY PO ; Start 10/23/18 at 09:00 AURORA ARZOLA NP Oct 22, 2018 20:01
[2018-10-22] MEDS: ATORVASTATIN 20 MG TAB PO SCH (20:49)
[2018-10-22] MEDS ORDERED: LACTOBACILLUS RHAMNOSUS CAP PO SCH (21:00)
[2018-10-23] MEDS: Insulin NOVOLOG SS MODERATE Algorithm(NPO/TPN/ENTERAL FEEDS) SC SCH ×6 (00:04→20:36)
[2018-10-23] MEDS: [UNRECOGNIZED DRUG - OTHER] RIGHT EYE SCH ×6 (00:06→20:40)
[2018-10-23] MEDS: morphine LIQ (10 MG/5 ML) CUP PO PRN (00:07)
[2018-10-23 02:00] VITALS: BP 138/88; PULSE 100; RESP 19
[2018-10-23] MEDS: CIPROFLOXACIN 500 MG TAB PO SCH (05:16)
[2018-10-23] MEDS: PANTOPRAZOLE (EC) 40 MG TAB PO SCH (05:16)
[2018-10-23 07:44] VITALS: BP 150/89; PULSE 107; RESP 20
[2018-10-23] MEDS: HYDROCODONE/APAP (10/325) TAB PO PRN (08:45)
[2018-10-23] MEDS ORDERED: LISINOPRIL 10 MG TAB PO SCH (09:00)
[2018-10-23] MEDS ORDERED: FUROSEMIDE 40 MG TAB PO SCH (09:00)
[2018-10-23] MEDS: PAROXETINE 20 MG TAB PO SCH (09:33)
[2018-10-23] MEDS: SUCRALFATE 1 GM TAB PO SCH ×4 (09:33→20:37)
[2018-10-23] MEDS: BUSPIRONE 5 MG TAB PO SCH ×2 (09:33→20:38)
[2018-10-23] MEDS: LISINOPRIL 5 MG TAB PO SCH (09:34)
[2018-10-23] MEDS: LACTOBACILLUS RHAMNOSUS CAP PO SCH ×2 (09:34→20:38)
[2018-10-23] MEDS: ASPIRIN (EC) 81 MG TAB PO SCH (09:34)
[2018-10-23] MEDS: THIAMINE 100 MG TAB PO SCH (09:35)
[2018-10-23] MEDS: GABAPENTIN 300 MG CAP PO SCH ×3 (09:35→20:36)
[2018-10-23] MEDS: METOCLOPRAMIDE 5 MG TAB PO SCH ×3 (09:37→20:38)
[2018-10-23] MEDS: NICOTINE (14 MG/24 HR) PATCH TRANSDERM SCH (09:37)
[2018-10-23] MEDS: POTASSIUM CHLORIDE 20 MEQ POWDER FOR ORAL SOLN PO SCH (09:37)
[2018-10-23] MEDS: NYSTATIN 30 GM POWDER BTL TOP SCH ×2 (09:38→20:39)
[2018-10-23] MEDS: INSULIN GLARGINE [LANTus] (100 UNITS/ML) SYG SC SCH (09:44)
[2018-10-23] MEDS: ENOXAPARIN 40 MG/0.4 ML SYG SC SCH (09:45)
[2018-10-23] MEDS: ACCU-CHEK XX SCH ×4 (10:13→20:40)
--- NOTE | 2018-10-23 12:43 | PN ---
Date/Time of Note Date/Time of Note DATE: 10/23/18 TIME: 12:41 Assessment/Plan VTE Prophylaxis Risk score (from Nsg)>0 risk: 3 SCD applied (from Ns): No SCD contraindicated: low risk/ambulating Pharmacological prophylaxis: NA/contraindicated Pharm contraindication: bleeding Lines/Catheters IV Catheter Type (from Nrs): Peripheral IV Urinary Cath still in place: No Assessment/Plan Hospital Course A/P 1. DKA vs hyperosmolar hyperglycemic state, stable/ improved cont insulin 2. Nonadherence, sp multiple sessions of counseling. Adjusted insulin/ diet. Definitely will be challenging/high risk of future DKA. 3. Abn LFTs/imaging. Abscess, sp aspiration *2, klebsiella. on po's. due to nonadherence, hopefully we can dc on po's. cont drain care. 4. Homeless/ ftt, may need placement; options have been given in the past but he continues to reside at his previous place of living. 5. Tobacco abuse, sp counseling offered patch 6. Bipolar dz/ mod stable observe 7. Hepatic nodule? 8. Dyslipidemia/metabolic syndrome 9. Anemia combination jolene and possible chr. stable observe. sp EGD/ colon. Gastritis but no active bleed. 10. Hypertension? 11. Diarrhea, c dif -ve. DC senna, sp endoscopy. 12. Subacute vision loss Rt. Present MRI - Ischemic stroke. stable, Continue risk factor modification. 13. Ac/subacute ischemic stroke. stable cont rfm. sp carotids/ echo. 14. Possible aspiration pneumonia due to stroke vs impulse eating/ behavior, ST consulted. Finishing antibiotics. 15. 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 Ascites, continue Lasix and beta-asher 17. Thalassemia stable observe Subjective: 10/08 no fever nausea vomiting toxicity, following commands. wants more food/ calories 10/09; diarrhea; denies george abd pain. 10/10: No distress no events. 10/11: Nonadherence to diet medications imaging and diagnostic studies. Took GI prep however had diarrhea 10/12: Sugar in the 70s controlled while n.p.o. No nausea vomiting. No chest pain. Subjective dizziness but vitals findings are negative. Fever noted. Colonoscopy today 10/13: Patient stated he had transient vision disturbance. Similar issue in past. Other [place] nonfocal. Right eye discomfort noted. 10/14: Fever overnight. Possible aspiration pneumonia. Start empiric antibiotics appreciate ST eval 10/22: Denies any distress except abdominal pain. Probably ruq drain related. No dyspnea fever. Mood much better/stable, not as demanding. 10/23 energy/mood appears less than baseline. Denies any discomfort like cough fever. Has some abd discomfort but no known aggravating factors. O: Vss PE No pallor/ icterus, Regular no mrg Clear Benign nt nd; no rrg drain c/d/i No edema Neuro: Grossly nonfocal Disposition: hopefully able to dc on po antibiotics for his abscess. drain/ snf soon. Result Diagram: 10/23/18 0546 10/23/18 0546 Results 24hrs Laboratory Tests Test 10/22/18 17:25 10/22/18 19:47 10/23/18 00:01 10/23/18 05:13 Bedside Glucose 83 143 163 231 H Test 10/23/18 05:46 10/23/18 09:40 White Blood Count 13.9 #H Red Blood Count 3.65 L Hemoglobin 8.4 L Hematocrit 27.6 L Mean Corpuscular 75.6 L Volume Mean Corpuscular 23.0 L Hemoglobin Mean Corpuscular 30.4 L Hemoglobin Concent Red Cell 15.9 H Distribution Width Platelet Count 648 #H Mean Platelet Volume 8.7 Immature 1.200 H Granulocytes % Neutrophils % 85.1 H Lymphocytes % 8.1 L Monocytes % 4.8 Eosinophils % 0.4 Basophils % 0.4 Nucleated Red Blood 0.0 Cells % Immature 0.170 H Granulocytes # Neutrophils # 11.8 H Lymphocytes # 1.1 Monocytes # 0.7 Eosinophils # 0.1 Basophils # 0.1 Nucleated Red Blood 0.0 Cells # Prothrombin Time 12.3 Prothrombin Time 1.0 Ratio INR International 0.90 Normalized Ratio Sodium Level 133 L Potassium Level 4.5 Chloride Level 91 L Carbon Dioxide Level 32 H Anion Gap 10 Blood Urea Nitrogen 20 Creatinine 0.49 L Est Glomerular > 60 Filtrat Rate mL/min Glucose Level 206 Calcium Level 8.9 Phosphorus Level 4.2 Magnesium Level 1.9 Total Bilirubin 0.1 L Direct Bilirubin 0.00 Indirect Bilirubin 0.1 Aspartate Amino 45 Transf (AST/SGOT) Alanine 29 Aminotransferase (AL T/SGPT) Alkaline Phosphatase 1380 H Total Protein 7.3 Albumin 3.2 L Globulin 4.10 H Albumin/Globulin 0.78 Ratio Bedside Glucose 216 Exam/Review of Systems Exam Vitals Vital Signs Date Temp Pulse Resp B/P (MAP) Pulse Ox O2 O2 Flow FiO2 Time Delivery Rate 10/23/18 99.8 107 20 150/89 98 Room Air 07:44 (109) Intake and Output 10/22/18 10/22/18 10/23/18 1515:00 23:00 07:00 IntakeIntake Total 1080 ml 480 ml OutputOutput Total 1250 ml 450 ml BalanceBalance -170 ml 30 ml Results Results 24hrs Laboratory Tests Test 10/22/18 17:25 10/22/18 19:47 10/23/18 00:01 10/23/18 05:13 Bedside Glucose 83 143 163 231 H Test 10/23/18 05:46 10/23/18 09:40 White Blood Count 13.9 #H Red Blood Count 3.65 L Hemoglobin 8.4 L Hematocrit 27.6 L Mean Corpuscular 75.6 L Volume Mean Corpuscular 23.0 L Hemoglobin Mean Corpuscular 30.4 L Hemoglobin Concent Red Cell 15.9 H Distribution Width Platelet Count 648 #H Mean Platelet Volume 8.7 Immature 1.200 H Granulocytes % Neutrophils % 85.1 H Lymphocytes % 8.1 L Monocytes % 4.8 Eosinophils % 0.4 Basophils % 0.4 Nucleated Red Blood 0.0 Cells % Immature 0.170 H Granulocytes # Neutrophils # 11.8 H Lymphocytes # 1.1 Monocytes # 0.7 Eosinophils # 0.1 Basophils # 0.1 Nucleated Red Blood 0.0 Cells # Prothrombin Time 12.3 Prothrombin Time 1.0 Ratio INR International 0.90 Normalized Ratio Sodium Level 133 L Potassium Level 4.5 Chloride Level 91 L Carbon Dioxide Level 32 H Anion Gap 10 Blood Urea Nitrogen 20 Creatinine 0.49 L Est Glomerular > 60 Filtrat Rate mL/min Glucose Level 206 Calcium Level 8.9 Phosphorus Level 4.2 Magnesium Level 1.9 Total Bilirubin 0.1 L Direct Bilirubin 0.00 Indirect Bilirubin 0.1 Aspartate Amino 45 Transf (AST/SGOT) Alanine 29 Aminotransferase (AL T/SGPT) Alkaline Phosphatase 1380 H Total Protein 7.3 Albumin 3.2 L Globulin 4.10 H Albumin/Globulin 0.78 Ratio Bedside Glucose 216 Medications Medication Current Medications Gabapentin (Neurontin) 300 mg TID PO Last administered on 10/23/18 09:35; Admin Dose 300 MG; Start 10/02/18 at 09:00 Ondansetron HCl (Zofran Inj) 4 mg Q6H PRN IV NAUSEA AND/OR VOMITING; Start 10/02/18 at 02:00 Albuterol (Proventil 0.083% (Neb)) 2.5 mg Q2H RESP THERAPY PRN NEB SHORTNESS OF BREATH; Start 10/02/18 at 02:00 Acetaminophen (Tylenol Liquid) 650 mg Q6H PRN PO PAIN LEVEL 1-3 OR FEVER Last administered on 10/14/18 07:57; Admin Dose 650 MG; Start 10/02/18 at 02:00 Menthol/Methyl Salicylate (Memo Erazo) 1 applic TID PRN TOP pain; Start 10/02/18 at 06:30 Tramadol HCl (Ultram) 50 mg Q6H PRN PO MODERATE PAIN LEVEL 4-6 Last adminis tered on 10/19/18at 10:27; Admin Dose 50 MG; Start 10/02/18 at 11:00 Potassium Chloride (Potassium Chloride Pwd/Soln) 20 meq PER PROTOCOL PRN PO POTASSIUM REPLACEMENT PROTOCOL; Start 10/02/18 at 11:30 Potassium Chloride (Potassium Chloride Pwd/Soln) 30 meq PER PROTOCOL PRN PO POTASSIUM REPLACEMENT PROTOCOL; Start 10/02/18 at 11:30 Potassium Chloride (Potassium Chloride Pwd/Soln) 40 meq PER PROTOCOL PRN PO POTASSIUM REPLACEMENT PROTOCOL; Start 10/02/18 at 11:30 Miscellaneous Information 1 ea NOTE XX ; Start 10/02/18 at 22:00 Glucose (Glutose) 15 gm Q15M PRN PO DECREASED GLUCOSE; Start 10/02/18 at 22:00 Glucose (Glutose) 22.5 gm Q15M PRN PO DECREASED GLUCOSE; Start 10/02/18 at 22:00 Dextrose (D50w Syringe) 25 ml Q15M PRN IV DECREASED GLUCOSE Last administered on 10/12/18 20:44; Admin Dose 25 ML; Start 10/02/18 at 22:00 Dextrose (D50w Syringe) 50 ml Q15M PRN IV DECREASED GLUCOSE Last administered on 10/12/18 18:15; Admin Dose 50 ML; Start 10/02/18 at 22:00 Glucagon (Glucagen) 1 mg Q15M PRN IM DECREASED GLUCOSE; Start 10/02/18 at 22:00 Glucose (Glutose) 15 gm Q15M PRN BUCCAL DECREASED GLUCOSE; Start 10/02/18 at 22:00 Diagnostic Test (Pha) (Accu-Chek) 1 ea AC MEALS AND BEDTIME XX Last administered on 10/22/18 20:47; Admin Dose 1 EA; Start 10/03/18 at 17:05 Calcium Carbonate (Tums) 500 mg Q4 PRN PO epigastric pain Last administered on 10/16/18 11:32; Admin Dose 500 MG; Start 10/05/18 at 01:30 Pantoprazole (Protonix Tab) 40 mg DAILY@06 PO Last administered on 10/23/18 05:16; Admin Dose 40 MG; Start 10/06/18 at 06:00 Lactobacillus Acidophilus/ Rhamnosus (Culturelle) 1 cap BID PO Last administered on 10/23/18 09:34; Admin Dose 1 CAP; Start 10/08/18 at 21:00 Acetaminophen/ Hydrocodone Bitart ([place] (10/325)) 1 tab Q6H PRN PO SEVERE PAIN LEVEL 7-10 Last administered on 10/23/18 08:45; Admin Dose 1 TAB; Start 10/08/18 at 14:30 Nicotine (Nicoderm 14 Mg/ 24hr) 1 patch DAILY TRANSDERM Last administered on 10/23/18 09:37; Admin Dose 1 PATCH; Start 10/08/18 at 14:30 Loperamide HCl (Imodium Cap) 2 mg QID PRN PO DIARRHEA; Start 10/09/18 at 12:11 Atorvastatin Calcium (Lipitor) 20 mg QHS PO Last administered on 10/22/18 20:49; Admin Dose 20 MG; Start 10/15/18 at 21:00 Hydrocortisone (Anusol-Hc Supp) 25 mg TID PRN [place] HEMORROID PAIN/ITCHING; Start 10/09/18 at 13:30 Potassium Chloride (Potassium Chloride Pwd/Soln) 20 meq DAILY PO Last administered on 10/23/18 09:37; Admin Dose 20 MEQ; Start 10/09/18 at 13:30 Enoxaparin Sodium (Lovenox) 40 mg DAILY SC Last administered on 10/23/18 09:45; Admin Dose 40 MG; Start 10/14/18 at 09:00 Aspirin (Halfprin) 81 mg DAILY PO Last administered on 10/23/18 09:34; Admin Dose 81 MG; Start 10/14/18 at 14:00 Metoclopramide HCl (Reglan) 5 mg TID PO Last administered on 10/23/18 09:37; Admin Dose 5 MG; Start 10/13/18 at 13:00 Sucralfate (Carafate) 1 gm QID PO Last administered on 10/23/18 09:33; Admin Dose 1 GM; Start 10/13/18 at 13:00 Morphine Sulfate (morphine) 6 mg Q4H PRN PO SEVERE PAIN LEVEL 7-10 Last administered on 10/23/18 00:07; Admin Dose 6 MG; Start 10/15/18 at 15:30 Paroxetine HCl (Paxil) 20 mg DAILY PO Last administered on 10/23/18 09:33; Admin Dose 20 MG; Start 10/17/18 at 09:00 Buspirone HCl (Buspar) 10 mg BID PO Last administered on 10/23/18 09:33; Admin Dose 10 MG; Start 10/16/18 at 21:00 Ciprofloxacin (Cipro) 500 mg BID@06,18 PO Last administered on 10/23/18 05:16; Admin Dose 500 MG; Start 10/18/18 at 18:00 Insulin Aspart (Novolog Insulin Pen) (Adult SC Insulin - Moder... Q4 SC Last a dministered on 10/23/18 09:45; Admin Dose 4 UNIT; Start 10/19/18 at 01:00 Vitamin A/Vitamin D (Vitamin A & D Oint) 1 applic BID PRN TOP DRYNESS; Start 10/21/18 at 10:30 Nystatin (Nystatin Powder) 1 applic BID TOP Last administered on 10/23/18 09:38; Admin Dose 1 APPLIC; Start 10/21/18 at 21:00 Non-Formulary Medication 2 ea Q4H RIGHT EYE Last administered on 10/23/18 09:38; Admin Dose 2 EA; Start 10/22/18 at 13:00 Insulin Glargine (Lantus) 12 units DAILY@0800 SC Last administered on 10/23/18 09:44; Admin Dose 12 UNITS; Start 10/23/18 at 08:00 Furosemide (Lasix) 40 mg DAILY PO Last administered on 10/23/18at 09:35; Admin Dose 40 MG; Start 10/23/18 at 09:00 Thiamine HCl (Vitamin B1) 100 mg DAILY PO Last administered on 10/23/18at 09:35; Admin Dose 100 MG; Start 10/23/18 at 09:00 Metoprolol Succinate (Toprol Xl) 12.5 mg DAILY PO ; Start 10/23/18 at 21:00 Lisinopril (Zestril) 5 mg DAILY PO Last administered on 10/23/18at 09:34; Admin Dose 5 MG; Start 10/23/18 at 09:00 MARKO PAYAN MD Oct 23, 2018 12:43
[2018-10-23] MEDS ORDERED: MAGNESIUM HYDROXIDE 30ML CUP PO ONE (13:00)
--- NOTE | 2018-10-23 14:38 | CONS ---
Assessment/Plan Assessment/Plan Hospital Course (Demo Recall) #Anemia -pt is now confirmed to have Beta Thalassemia which is certainly a contributing factor to his microcytic anemia -initially pt was noted to have a low iron saturation in the setting of a high ferritin and low TIBC. THus there is also a component of chronic inflammation from the underlying liver abscess and diabetes, as well as a component of iron deficiency. now s/p 10 days of IV iron -EGD and coloscopy did not reveal evidence of active GI bleed although colon prep was suboptimal -there does not seem to be evidence of hemolysis given the elevated haptoglobin -negative SPEP rules out monoclonal gammopathy -patient's epo level is elevated. I do not feel he would benefit from procrit at this time #Liver abscess -this is the likely cause of the elevated alk phos. negative bone scan is noted -s/p IR guided drainage x 2 of the liver abscess -continue abx for liver abscess #DM -uncontrolled -continue insulin per primary team #Bipolar -continue mood stabilizers -continue mood stabilizers Consultation Date/Type/Reason Admit Date/Time Oct 02, 2018 at 00:05 Initial Consult Date 10/04/18 Type of Consult Hematology Reason for Consultation anemia Requesting Provider: HERRERA SALDAÑA NP Date/Time of Note DATE: 10/23/18 TIME: 14:36 24 HR Interval Summary Free Text/Dictation no acute overnight events Exam/Review of Systems Exam Vitals Vital Signs Date Temp Pulse Resp B/P (MAP) Pulse Ox O2 O2 Flow FiO2 Time Delivery Rate 10/23/18 99.8 107 20 150/89 98 Room Air 07:44 (109) Intake and Output 10/22/18 10/22/18 10/23/18 1515:00 23:00 07:00 IntakeIntake Total 1080 ml 480 ml OutputOutput Total 1250 ml 450 ml BalanceBalance -170 ml 30 ml Constitutional: alert Psych: no complaints Head: normocephalic Eyes: nl conjunctiva ENMT: nl external ears & nose Neck: supple Respiratory: clear to auscultation, normal air movement Cardiovascular: regular rate and rhythm Gastrointestinal: other (acordian drain in place) Musculoskeletal: nl extremities to inspection Extremities: normal pulses Results Result Diagram: 10/23/18 0546 10/23/18 0546 Results 24hrs Laboratory Tests Test 10/22/18 17:25 10/22/18 19:47 10/23/18 00:01 10/23/18 05:13 Bedside Glucose 83 143 163 231 H Test 10/23/18 05:46 10/23/18 09:40 10/23/18 13:26 White Blood Count 13.9 #H Red Blood Count 3.65 L Hemoglobin 8.4 L Hematocrit 27.6 L Mean Corpuscular 75.6 L Volume Mean Corpuscular 23.0 L Hemoglobin Mean Corpuscular 30.4 L Hemoglobin Concent Red Cell 15.9 H Distribution Width Platelet Count 648 #H Mean Platelet Volume 8.7 Immature 1.200 H Granulocytes % Neutrophils % 85.1 H Lymphocytes % 8.1 L Monocytes % 4.8 Eosinophils % 0.4 Basophils % 0.4 Nucleated Red Blood 0.0 Cells % Immature 0.170 H Granulocytes # Neutrophils # 11.8 H Lymphocytes # 1.1 Monocytes # 0.7 Eosinophils # 0.1 Basophils # 0.1 Nucleated Red Blood 0.0 Cells # Prothrombin Time 12.3 Prothrombin Time 1.0 Ratio INR International 0.90 Normalized Ratio Sodium Level 133 L Potassium Level 4.5 Chloride Level 91 L Carbon Dioxide Level 32 H Anion Gap 10 Blood Urea Nitrogen 20 Creatinine 0.49 L Est Glomerular > 60 Filtrat Rate mL/min Glucose Level 206 Calcium Level 8.9 Phosphorus Level 4.2 Magnesium Level 1.9 Total Bilirubin 0.1 L Direct Bilirubin 0.00 Indirect Bilirubin 0.1 Aspartate Amino 45 Transf (AST/SGOT) Alanine 29 Aminotransferase (AL T/SGPT) Alkaline Phosphatase 1380 H Total Protein 7.3 Albumin 3.2 L Globulin 4.10 H Albumin/Globulin 0.78 Ratio Bedside Glucose 216 244 H Medications Medication Current Medications Gabapentin (Neurontin) 300 mg TID PO Last administered on 10/23/18at 13:22; Admin Dose 300 MG; Start 10/02/18 at 09:00 Ondansetron HCl (Zofran Inj) 4 mg Q6H PRN IV NAUSEA AND/OR VOMITING; Start 10/02/18 at 02:00 Albuterol (Proventil 0.083% (Neb)) 2.5 mg Q2H RESP THERAPY PRN NEB SHORTNESS OF BREATH; Start 10/02/18 at 02:00 Acetaminophen (Tylenol Liquid) 650 mg Q6H PRN PO PAIN LEVEL 1-3 OR FEVER Last administered on 10/14/18 07:57; Admin Dose 650 MG; Start 10/02/18 at 02:00 Menthol/Methyl Salicylate (Memo Erazo) 1 applic TID PRN TOP pain; Start 10/02/18 at 06:30 Tramadol HCl (Ultram) 50 mg Q6H PRN PO MODERATE PAIN LEVEL 4-6 Last administered on 10/19/18 10:27; Admin Dose 50 MG; Start 10/02/18 at 11:00 Potassium Chloride (Potassium Chloride Pwd/Soln) 20 meq PER PROTOCOL PRN PO POTASSIUM REPLACEMENT PROTOCOL; Start 10/02/18 at 11:30 Potassium Chloride (Potassium Chloride Pwd/Soln) 30 meq PER PROTOCOL PRN PO POTASSIUM REPLACEMENT PROTOCOL; Start 10/02/18 at 11:30 Potassium Chloride (Potassium Chloride Pwd/Soln) 40 meq PER PROTOCOL PRN PO POTASSIUM REPLACEMENT PROTOCOL; Start 10/02/18 at 11:30 Miscellaneous Information 1 ea NOTE XX ; Start 10/02/18 at 22:00 Glucose (Glutose) 15 gm Q15M PRN PO DECREASED GLUCOSE; Start 10/02/18 at 22:00 Glucose (Glutose) 22.5 gm Q15M PRN PO DECREASED GLUCOSE; Start 10/02/18 at 22:00 Dextrose (D50w Syringe) 25 ml Q15M PRN IV DECREASED GLUCOSE Last administered on 10/12/18 20:44; Admin Dose 25 ML; Start 10/02/18 at 22:00 Dextrose (D50w Syringe) 50 ml Q15M PRN IV DECREASED GLUCOSE Last administered on 10/12/18 18:15; Admin Dose 50 ML; Start 10/02/18 at 22:00 Glucagon (Glucagen) 1 mg Q15M PRN IM DECREASED GLUCOSE; Start 10/02/18 at 22:00 Glucose (Glutose) 15 gm Q15M PRN BUCCAL DECREASED GLUCOSE; Start 10/02/18 at 22:00 Diagnostic Test (Pha) (Accu-Chek) 1 ea AC MEALS AND BEDTIME XX Last administered on 10/23/18 13:27; Admin Dose 1 EA; Start 10/03/18 at 17:05 Calcium Carbonate (Tums) 500 mg Q4 PRN PO epigastric pain Last administered on 10/16/18 11:32; Admin Dose 500 MG; Start 10/05/18 at 01:30 Pantoprazole (Protonix Tab) 40 mg DAILY@06 PO Last administered on 10/23/18 05:16; Admin Dose 40 MG; Start 10/06/18 at 06:00 Lactobacillus Acidophilus/ Rhamnosus (Culturelle) 1 cap BID PO Last administered on 10/23/18 09:34; Admin Dose 1 CAP; Start 10/08/18 at 21:00 Acetaminophen/ Hydrocodone Bitart ([place] (10/325)) 1 tab Q6H PRN PO SEVERE PAIN LEVEL 7-10 Last administered on 10/23/18 08:45; Admin Dose 1 TAB; Start 10/08/18 at 14:30 Nicotine (Nicoderm 14 Mg/ 24hr) 1 patch DAILY TRANSDERM Last administered on 10/23/18 09:37; Admin Dose 1 PATCH; Start 10/08/18 at 14:30 Loperamide HCl (Imodium Cap) 2 mg QID PRN PO DIARRHEA; Start 10/09/18 at 12:11 Atorvastatin Calcium (Lipitor) 20 mg QHS PO Last administered on 10/22/18 20:49; Admin Dose 20 MG; Start 10/15/18 at 21:00 Hydrocortisone (Anusol-Hc Supp) 25 mg TID PRN [place] HEMORROID PAIN/ITCHING; Start 10/09/18 at 13:30 Potassium Chloride (Potassium Chloride Pwd/Soln) 20 meq DAILY PO Last administe red on 10/23/18 09:37; Admin Dose 20 MEQ; Start 10/09/18 at 13:30 Enoxaparin Sodium (Lovenox) 40 mg DAILY SC Last administered on 10/23/18 09:45; Admin Dose 40 MG; Start 10/14/18 at 09:00 Aspirin (Halfprin) 81 mg DAILY PO Last administered on 10/23/18 09:34; Admin Dose 81 MG; Start 10/14/18 at 14:00 Metoclopramide HCl (Reglan) 5 mg TID PO Last administered on 10/23/18 13:22; Admin Dose 5 MG; Start 10/13/18 at 13:00 Sucralfate (Carafate) 1 gm QID PO Last administered on 10/23/18 13:22; Admin Dose 1 GM; Start 10/13/18 at 13:00 Morphine Sulfate (morphine) 6 mg Q4H PRN PO SEVERE PAIN LEVEL 7-10 Last administered on 10/23/18 00:07; Admin Dose 6 MG; Start 10/15/18 at 15:30 Ciprofloxacin (Cipro) 500 mg BID@06,18 PO Last administered on 10/23/18 05:16; Admin Dose 500 MG; Start 10/18/18 at 18:00 Insulin Aspart (Novolog Insulin Pen) (Adult SC Insulin - Moder... Q4 SC Last administered on 10/23/18 13:28; Admin Dose 6 UNIT; Start 10/19/18 at 01:00 Vitamin A/Vitamin D (Vitamin A & D Oint) 1 applic BID PRN TOP DRYNESS; Start 10/21/18 at 10:30 Nystatin (Nystatin Powder) 1 applic BID TOP Last administered on 10/23/18 09:38; Admin Dose 1 APPLIC; Start 10/21/18 at 21:00 Non-Formulary Medication 2 ea Q4H RIGHT EYE Last administered on 10/23/18 09:38; Admin Dose 2 EA; Start 10/22/18 at 13:00 Insulin Glargine (Lantus) 12 units DAILY@0800 SC Last administered on 10/23/18 09:44; Admin Dose 12 UNITS; Start 10/23/18 at 08:00 Thiamine HCl (Vitamin B1) 100 mg DAILY PO Last administered on 10/23/18 09:35; Admin Dose 100 MG; Start 10/23/18 at 09:00 Metoprolol Succinate (Toprol Xl) 12.5 mg DAILY PO ; Start 10/23/18 at 21:00 Lisinopril (Zestril) 5 mg DAILY PO Last administered on 10/23/18 09:34; Admin Dose 5 MG; Start 10/23/18 at 09:00 Buspirone HCl (Buspar) 5 mg BID PO ; Start 10/23/18 at 21:00 Furosemide (Lasix) 20 mg DAILY PO ; Start 10/24/18 at 09:00 Paroxetine HCl (Paxil) 10 mg DAILY PO ; Start 10/24/18 at 09:00 MAYA CASTILLO M.D. Oct 23, 2018 14:38
--- NOTE | 2018-10-23 15:34 | CONS ---
Assessment/Plan Assessment/Plan Hospital Course (Demo Recall) Patient had been more weak and lethargic over the last couple days. Had a low- grade fever of 99.8 today with white blood cell count went up to 13.9 neutrophils 85.1. No nausea vomiting diarrhea diarrhea per report patient is urinating adequate amounts of urine Abdominal fluid culture growing Klebsiella pneumonia, no anaerobes Antimicrobials: Cipro Physical examination: Well-developed elderly -[place]el[place] man in no distress. Head atraumatic normocephalic neck is supple chest rise symmetrical breath sounds diminished bases heart S1-S2 abdomen obese soft bowel sounds present extremities without cyanosis Assessment: 1. Clinical sepsis 2. Liver abscesses ==> s/p repeated IR guided aspiration with catheter placement 3. S/p healthcare associated pneumonia 4. Diabetes, poorly controlled 5. Hypertension 6. Bipolar disorder and homelessness 7. Poss retention/cystitis 8. Constipation 9. Anemia/Beta Thalassemia Plan: Clinically doing worse, will change antibiotics to Zosyn, order blood cultures, urine culture and chest x-ray. Consider repeat CT of the abdomen if symptoms do not improve Consultation Date/Type/Reason Admit Date/Time Oct 02, 2018 at 00:05 Initial Consult Date 10/04/18 Type of Consult id Requesting Provider: HERRERA SALDAÑA NP Date/Time of Note DATE: 10/23/18 TIME: 15:33 Exam/Review of Systems Exam Vitals Vital Signs Date Temp Pulse Resp B/P (MAP) Pulse Ox O2 O2 Flow FiO2 Time Delivery Rate 10/23/18 99.8 107 20 150/89 98 Room Air 07:44 (109) Intake and Output 10/22/18 10/22/18 10/23/18 1515:00 23:00 07:00 IntakeIntake Total 1080 ml 480 ml OutputOutput Total 1250 ml 450 ml BalanceBalance -170 ml 30 ml Results Result Diagram: 10/23/18 0546 10/23/1846 Results 24hrs Laboratory Tests Test 10/22/18 17:25 10/22/18 19:47 10/23/18 00:01 10/23/18 05:13 Bedside Glucose 83 143 163 231 H Test 10/23/18 05:46 10/23/18 09:40 10/23/18 13:26 White Blood Count 13.9 #H Red Blood Count 3.65 L Hemoglobin 8.4 L Hematocrit 27.6 L Mean Corpuscular 75.6 L Volume Mean Corpuscular 23.0 L Hemoglobin Mean Corpuscular 30.4 L Hemoglobin Concent Red Cell 15.9 H Distribution Width Platelet Count 648 #H Mean Platelet Volume 8.7 Immature 1.200 H Granulocytes % Neutrophils % 85.1 H Lymphocytes % 8.1 L Monocytes % 4.8 Eosinophils % 0.4 Basophils % 0.4 Nucleated Red Blood 0.0 Cells % Immature 0.170 H Granulocytes # Neutrophils # 11.8 H Lymphocytes # 1.1 Monocytes # 0.7 Eosinophils # 0.1 Basophils # 0.1 Nucleated Red Blood 0.0 Cells # Prothrombin Time 12.3 Prothrombin Time 1.0 Ratio INR International 0.90 Normalized Ratio Sodium Level 133 L Potassium Level 4.5 Chloride Level 91 L Carbon Dioxide Level 32 H Anion Gap 10 Blood Urea Nitrogen 20 Creatinine 0.49 L Est Glomerular > 60 Filtrat Rate mL/min Glucose Level 206 Calcium Level 8.9 Phosphorus Level 4.2 Magnesium Level 1.9 Total Bilirubin 0.1 L Direct Bilirubin 0.00 Indirect Bilirubin 0.1 Aspartate Amino 45 Transf (AST/SGOT) Alanine 29 Aminotransferase (AL T/SGPT) Alkaline Phosphatase 1380 H Total Protein 7.3 Albumin 3.2 L Globulin 4.10 H Albumin/Globulin 0.78 Ratio Bedside Glucose 216 244 H Medications Medication Current Medications Gabapentin (Neurontin) 300 mg TID PO Last administered on 10/23/18at 13:22; Admin Dose 300 MG; Start 10/02/18 at 09:00 Ondansetron HCl (Zofran Inj) 4 mg Q6H PRN IV NAUSEA AND/OR VOMITING; Start 10/02/18 at 02:00 Albuterol (Proventil 0.083% (Neb)) 2.5 mg Q2H RESP THERAPY PRN NEB SHORTNESS OF BREATH; Start 10/02/18 at 02:00 Acetaminophen (Tylenol Liquid) 650 mg Q6H PRN PO PAIN LEVEL 1-3 OR FEVER Last administered on 10/14/18at 07:57; Admin Dose 650 MG; Start 10/02/18 at 02:00 Menthol/Methyl Salicylate (Memo Erazo) 1 applic TID PRN TOP pain; Start 10/02/18 at 06:30 Tramadol HCl (Ultram) 50 mg Q6H PRN PO MODERATE PAIN LEVEL 4-6 Last administered on 10/19/18 10:27; Admin Dose 50 MG; Start 10/02/18 at 11:00 Potassium Chloride (Potassium Chloride Pwd/Soln) 20 meq PER PROTOCOL PRN PO POTASSIUM REPLACEMENT PROTOCOL; Start 10/02/18 at 11:30 Potassium Chloride (Potassium Chloride Pwd/Soln) 30 meq PER PROTOCOL PRN PO POTASSIUM REPLACEMENT PROTOCOL; Start 10/02/18 at 11:30 Potassium Chloride (Potassium Chloride Pwd/Soln) 40 meq PER PROTOCOL PRN PO POTASSIUM REPLACEMENT PROTOCOL; Start 10/02/18 at 11:30 Miscellaneous Information 1 ea NOTE XX ; Start 10/02/18 at 22:00 Glucose (Glutose) 15 gm Q15M PRN PO DECREASED GLUCOSE; Start 10/02/18 at 22:00 Glucose (Glutose) 22.5 gm Q15M PRN PO DECREASED GLUCOSE; Start 10/02/18 at 22:00 Dextrose (D50w Syringe) 25 ml Q15M PRN IV DECREASED GLUCOSE Last administered on 10/12/18at 20:44; Admin Dose 25 ML; Start 10/02/18 at 22:00 Dextrose (D50w Syringe) 50 ml Q15M PRN IV DECREASED GLUCOSE Last administered on 10/12/18 18:15; Admin Dose 50 ML; Start 10/02/18 at 22:00 Glucagon (Glucagen) 1 mg Q15M PRN IM DECREASED GLUCOSE; Start 10/02/18 at 22:00 Glucose (Glutose) 15 gm Q15M PRN BUCCAL DECREASED GLUCOSE; Start 10/02/18 at 22:00 Diagnostic Test (Pha) (Accu-Chek) 1 ea AC MEALS AND BEDTIME XX Last administered on 10/23/18 13:27; Admin Dose 1 EA; Start 10/03/18 at 17:05 Calcium Carbonate (Tums) 500 mg Q4 PRN PO epigastric pain Last administered on 10/16/18 11:32; Admin Dose 500 MG; Start 10/05/18 at 01:30 Pantoprazole (Protonix Tab) 40 mg DAILY@06 PO Last administered on 10/23/18 05:16; Admin Dose 40 MG; Start 10/06/18 at 06:00 Lactobacillus Acidophilus/ Rhamnosus (Culturelle) 1 cap BID PO Last administered on 10/23/18 09:34; Admin Dose 1 CAP; Start 10/08/18 at 21:00 Acetaminophen/ Hydrocodone Bitart ([place] (10/325)) 1 tab Q6H PRN PO SEVERE PAIN LEVEL 7-10 Last administered on 10/23/18 08:45; Admin Dose 1 TAB; Start 10/08/18 at 14:30 Nicotine (Nicoderm 14 Mg/ 24hr) 1 patch DAILY TRANSDERM Last administered on 10/23/18 09:37; Admin Dose 1 PATCH; Start 10/08/18 at 14:30 Loperamide HCl (Imodium Cap) 2 mg QID PRN PO DIARRHEA; Start 10/09/18 at 12:11 Atorvastatin Calcium (Lipitor) 20 mg QHS PO Last administered on 10/22/18 20:49; Admin Dose 20 MG; Start 10/15/18 at 21:00 Hydrocortisone (Anusol-Hc Supp) 25 mg TID PRN [place] HEMORROID PAIN/ITCHING; Start 10/09/18 at 13:30 Potassium Chloride (Potassium Chloride Pwd/Soln) 20 meq DAILY PO Last administered on 10/23/18 09:37; Admin Dose 20 MEQ; Start 10/09/18 at 13:30 Enoxaparin Sodium (Lovenox) 40 mg DAILY SC Last administered on 10/23/18 09:45; Admin Dose 40 MG; Start 10/14/18 at 09:00 Aspirin (Halfprin) 81 mg DAILY PO Last administered on 10/23/18 09:34; Admin Dose 81 MG; Start 10/14/18 at 14:00 Metoclopramide HCl (Reglan) 5 mg TID PO Last administered on 10/23/18 13:22; Admin Dose 5 MG; Start 10/13/18 at 13:00 Sucralfate (Carafate) 1 gm QID PO Last administered on 10/23/18 13:22; Admin Dose 1 GM; Start 10/13/18 at 13:00 Morphine Sulfate (morphine) 6 mg Q4H PRN PO SEVERE PAIN LEVEL 7-10 Last administered on 10/23/18 00:07; Admin Dose 6 MG; Start 10/15/18 at 15:30 Ciprofloxacin (Cipro) 500 mg BID@,18 PO Last administered on 10/23/18 05:16; Admin Dose 500 MG; Start 10/18/18 at 18:00 Insulin Aspart (Novolog Insulin Pen) (Adult SC Insulin - Moder... Q4 SC Last administered on 10/23/18 13:28; Admin Dose 6 UNIT; Start 10/19/18 at 01:00 Vitamin A/Vitamin D (Vitamin A & D Oint) 1 applic BID PRN TOP DRYNESS; Start 10/21/18 at 10:30 Nystatin (Nystatin Powder) 1 applic BID TOP Last administered on 10/23/18 09:38; Admin Dose 1 APPLIC; Start 10/21/18 at 21:00 Non-Formulary Medication 2 ea Q4H RIGHT EYE Last administered on 10/23/18 09:38; Admin Dose 2 EA; Start 10/22/18 at 13:00 Insulin Glargine (Lantus) 12 units DAILY@0800 SC Last administered on 10/23/18 09:44; Admin Dose 12 UNITS; Start 10/23/18 at 08:00 Thiamine HCl (Vitamin B1) 100 mg DAILY PO Last administered on 10/23/18at 09:35; Admin Dose 100 MG; Start 10/23/18 at 09:00 Metoprolol Succinate (Toprol Xl) 12.5 mg DAILY PO ; Start 10/23/18 at 21:00 Lisinopril (Zestril) 5 mg DAILY PO Last administered on 10/23/18 09:34; Admin Dose 5 MG; Start 10/23/18 at 09:00 Buspirone HCl (Buspar) 5 mg BID PO ; Start 10/23/18 at 21:00 Furosemide (Lasix) 20 mg DAILY PO ; Start 10/24/18 at 09:00 Paroxetine HCl (Paxil) 10 mg DAILY PO ; Start 10/24/18 at 09:00 AURORA ARZOLA NP Oct 23, 2018 15:34
[2018-10-23 15:50] VITALS: BP 109/63; PULSE 110
[2018-10-23] MEDS: ACETAMINOPHEN 650MG/20.3ML CUP PO PRN (16:10)
[2018-10-23] MEDS: PIPER-TAZO 3.375 GM IV (PMX) 100 ML IVPB SCH ×2 (16:13→20:40)
[2018-10-23 17:33] VITALS: BP 100/52; PULSE 105; RESP 20
[2018-10-23 19:54] VITALS: BP 108/61; PULSE 108; RESP 20
[2018-10-23] MEDS: METOPROLOL (XL) 25 MG TAB PO SCH (20:37)
[2018-10-23] MEDS: ATORVASTATIN 20 MG TAB PO SCH (20:38)
[2018-10-24] MEDS: Insulin NOVOLOG SS MODERATE Algorithm(NPO/TPN/ENTERAL FEEDS) SC SCH ×6 (00:43→20:25)
[2018-10-24] MEDS: [UNRECOGNIZED DRUG - OTHER] RIGHT EYE SCH ×7 (00:43→20:23)
[2018-10-24 02:33] VITALS: BP 112/76; PULSE 99; RESP 20
[2018-10-24] MEDS: PIPER-TAZO 3.375 GM IV (PMX) 100 ML IVPB SCH ×3 (05:33→21:18)
[2018-10-24] MEDS: PANTOPRAZOLE (EC) 40 MG TAB PO SCH (05:33)
[2018-10-24] MEDS: HYDROCODONE/APAP (10/325) TAB PO PRN ×2 (08:03→20:21)
[2018-10-24 08:14] VITALS: BP 131/84; PULSE 98; RESP 18
[2018-10-24] MEDS: ACCU-CHEK XX SCH ×4 (08:35→21:00)
[2018-10-24] MEDS: LACTOBACILLUS RHAMNOSUS CAP PO SCH ×2 (09:41→20:21)
[2018-10-24] MEDS: THIAMINE 100 MG TAB PO SCH (09:41)
[2018-10-24] MEDS: ASPIRIN (EC) 81 MG TAB PO SCH (09:41)
[2018-10-24] MEDS: POTASSIUM CHLORIDE 20 MEQ POWDER FOR ORAL SOLN PO SCH (09:41)
[2018-10-24] MEDS: PAROXETINE 20 MG TAB PO SCH (09:42)
[2018-10-24] MEDS: METOCLOPRAMIDE 5 MG TAB PO SCH ×3 (09:42→20:21)
[2018-10-24] MEDS: SUCRALFATE 1 GM TAB PO SCH ×4 (09:42→20:20)
[2018-10-24] MEDS: BUSPIRONE 5 MG TAB PO SCH ×2 (09:42→20:20)
[2018-10-24] MEDS: GABAPENTIN 300 MG CAP PO SCH (09:42)
[2018-10-24] MEDS: NYSTATIN 30 GM POWDER BTL TOP SCH ×2 (09:45→20:23)
[2018-10-24] MEDS: METOPROLOL (XL) 25 MG TAB PO SCH (09:51)
[2018-10-24] MEDS: FUROSEMIDE 40 MG TAB PO SCH (09:51)
[2018-10-24] MEDS: LISINOPRIL 5 MG TAB PO SCH (09:53)
[2018-10-24] MEDS: INSULIN GLARGINE [LANTus] (100 UNITS/ML) SYG SC SCH (10:01)
[2018-10-24] MEDS: morphine LIQ (10 MG/5 ML) CUP PO PRN (10:03)
[2018-10-24] MEDS: ENOXAPARIN 40 MG/0.4 ML SYG SC SCH (10:08)
[2018-10-24] MEDS: NICOTINE (14 MG/24 HR) PATCH TRANSDERM SCH (10:10)
--- NOTE | 2018-10-24 11:18 | CONS ---
Assessment/Plan Assessment/Plan Hospital Course (Demo Recall) #Anemia -pt is now confirmed to have Beta Thalassemia which is certainly a contributing factor to his microcytic anemia -initially pt was noted to have a low iron saturation in the setting of a high ferritin and low TIBC. Thus there is also a component of chronic inflammation from the underlying liver abscess and diabetes, as well as a component of iron deficiency. now s/p 10 days of IV iron -EGD and coloscopy did not reveal evidence of active GI bleed although colon prep was suboptimal -there does not seem to be evidence of hemolysis given the elevated haptoglobin -negative SPEP rules out monoclonal gammopathy -patient's epo level is elevated. I do not feel he would benefit from procrit at this time #Liver abscess -this is the likely cause of the elevated alk phos. negative bone scan is noted -s/p IR guided drainage x 2 of the liver abscess -continue abx for liver abscess. pt is now on zosyn #DM -uncontrolled -continue insulin per primary team #Bipolar -continue mood stabilizers -continue mood stabilizers Consultation Date/Type/Reason Admit Date/Time Oct 02, 2018 at 00:05 Initial Consult Date 10/04/18 Type of Consult Hematology Reason for Consultation anemia Requesting Provider: HERRERA SALDAÑA NP Date/Time of Note DATE: 10/24/18 TIME: 11:16 24 HR Interval Summary Free Text/Dictation pt is more lethargic and spiking low grade fevers Exam/Review of Systems Exam Vitals Vital Signs Date Temp Pulse Resp B/P (MAP) Pulse Ox O2 O2 Flow FiO2 Time Delivery Rate 10/24/18 97.9 98 18 131/84 98 Room Air 08:14 (100) Intake and Output 10/23/18 10/23/18 10/24/18 1515:00 23:00 07:00 IntakeIntake Total 240 ml 619 ml 300 ml OutputOutput Total 1050 ml 650 ml BalanceBalance 240 ml -431 ml -350 ml Constitutional: alert, oriented Psych: no complaints Head: normocephalic Eyes: nl conjunctiva ENMT: nl external ears & nose Neck: supple Respiratory: clear to auscultation Cardiovascular: regular rate and rhythm Gastrointestinal: soft Results Result Diagram: 10/24/18 0553 10/24/18 0553 Results 24hrs Laboratory Tests Test 10/23/18 13:26 10/23/18 18:28 10/23/18 20:32 10/24/18 00:41 Bedside Glucose 244 H 177 159 154 Test 10/24/18 05:32 10/24/18 05:53 10/24/18 09:33 Bedside Glucose 175 188 White Blood Count 12.4 H Red Blood Count 3.78 L Hemoglobin 8.7 L Hematocrit 28.2 L Mean Corpuscular 74.6 L Volume Mean Corpuscular 23.0 L Hemoglobin Mean Corpuscular 30.9 L Hemoglobin Concent Red Cell 15.9 H Distribution Width Platelet Count 580 H Mean Platelet Volume 9.4 Immature 1.100 H Granulocytes % Neutrophils % 78.1 H Segmented 85 H Neutrophils % (Manual) Band Neutrophils % 1 (Manual) Lymphocytes % 12.0 L Lymphocytes % 10 L (Manual) Reactive Lymphocytes 1 H % (Manual) Monocytes % 7.7 Monocytes % (Manual) 3 Eosinophils % 0.6 Basophils % 0.5 Nucleated Red Blood 0.0 Cells % Immature 0.140 H Granulocytes # Neutrophils # 9.7 H Neutrophils # 10.6 H (Manual) Band Neutrophils # 0.1 Lymphocytes (Manual) 1.2 Lymphocytes # 1.5 Reactive Lymphocytes 0.1 H # Monocytes # 1.0 H Monocytes # (Manual) 0.3 Eosinophils # 0.1 Basophils # 0.1 Nucleated Red Blood 0.0 Cells # Platelet Estimate INCREASED Polychromasia 1+ Hypochromasia 2+ Anisocytosis 1+ Microcytosis 1+ Sodium Level 136 Potassium Level 5.1 Chloride Level 98 Carbon Dioxide Level 27 Anion Gap 11 Blood Urea Nitrogen 16 Creatinine 0.39 L Est Glomerular > 60 Filtrat Rate mL/min Glucose Level 178 Calcium Level 9.1 Phosphorus Level 4.3 Magnesium Level 2.2 Total Bilirubin 0.3 Direct Bilirubin 0.00 Indirect Bilirubin 0.3 Aspartate Amino 124 #H Transf (AST/SGOT) Alanine 45 Aminotransferase (AL T/SGPT) Alkaline Phosphatase 1298 H Troponin I < 0.012 Total Protein 7.5 Albumin 3.3 Globulin 4.20 H Albumin/Globulin 0.78 Ratio Lipase 16 L Medications Medication Current Medications Gabapentin (Neurontin) 300 mg TID PO Last administered on 10/24/18at 09:42; Admin Dose 300 MG; Start 10/02/18 at 09:00 Ondansetron HCl (Zofran Inj) 4 mg Q6H PRN IV NAUSEA AND/OR VOMITING; Start 10/02/18 at 02:00 Albuterol (Proventil 0.083% (Neb)) 2.5 mg Q2H RESP THERAPY PRN NEB SHORTNESS OF BREATH; Start 10/02/18 at 02:00 Acetaminophen (Tylenol Liquid) 650 mg Q6H PRN PO PAIN LEVEL 1-3 OR FEVER Last administered on 10/23/18 16:10; Admin Dose 650 MG; Start 10/02/18 at 02:00 Menthol/Methyl Salicylate (Memo Erazo) 1 applic TID PRN TOP pain; Start 10/02/18 at 06:30 Tramadol HCl (Ultram) 50 mg Q6H PRN PO MODERATE PAIN LEVEL 4-6 Last administered on 10/19/18 10:27; Admin Dose 50 MG; Start 10/02/18 at 11:00 Potassium Chloride (Potassium Chloride Pwd/Soln) 20 meq PER PROTOCOL PRN PO POTASSIUM REPLACEMENT PROTOCOL; Start 10/02/18 at 11:30 Potassium Chloride (Potassium Chloride Pwd/Soln) 30 meq PER PROTOCOL PRN PO POTASSIUM REPLACEMENT PROTOCOL; Start 10/02/18 at 11:30 Potassium Chloride (Potassium Chloride Pwd/Soln) 40 meq PER PROTOCOL PRN PO POTASSIUM REPLACEMENT PROTOCOL; Start 10/02/18 at 11:30 Miscellaneous Information 1 ea NOTE XX ; Start 10/02/18 at 22:00 Glucose (Glutose) 15 gm Q15M PRN PO DECREASED GLUCOSE; Start 10/02/18 at 22:00 Glucose (Glutose) 22.5 gm Q15M PRN PO DECREASED GLUCOSE; Start 10/02/18 at 22:00 Dextrose (D50w Syringe) 25 ml Q15M PRN IV DECREASED GLUCOSE Last administered on 10/12/18at 20:44; Admin Dose 25 ML; Start 10/02/18 at 22:00 Dextrose (D50w Syringe) 50 ml Q15M PRN IV DECREASED GLUCOSE Last administered on 10/12/18at 18:15; Admin Dose 50 ML; Start 10/02/18 at 22:00 Glucagon (Glucagen) 1 mg Q15M PRN IM DECREASED GLUCOSE; Start 10/02/18 at 22:00 Glucose (Glutose) 15 gm Q15M PRN BUCCAL DECREASED GLUCOSE; Start 10/02/18 at 22:00 Diagnostic Test (Pha) (Accu-Chek) 1 ea AC MEALS AND BEDTIME XX Last administered on 10/23/18 20:40; Admin Dose 1 EA; Start 10/03/18 at 17:05 Calcium Carbonate (Tums) 500 mg Q4 PRN PO epigastric pain Last administered on 10/16/18 11:32; Admin Dose 500 MG; Start 10/05/18 at 01:30 Pantoprazole (Protonix Tab) 40 mg DAILY@06 PO Last administered on 10/24/18 05:33; Admin Dose 40 MG; Start 10/06/18 at 06:00 Lactobacillus Acidophilus/ Rhamnosus (Culturelle) 1 cap BID PO Last administered on 10/24/18 09:41; Admin Dose 1 CAP; Start 10/08/18 at 21:00 Acetaminophen/ Hydrocodone Bitart ([place] (10/325)) 1 tab Q6H PRN PO SEVERE PAIN LEVEL 7-10 Last administered on 10/24/18 08:03; Admin Dose 1 TAB; Start 10/08/18 at 14:30 Nicotine (Nicoderm 14 Mg/ 24hr) 1 patch DAILY TRANSDERM Last administered on 10/24/18 10:10; Admin Dose 1 PATCH; Start 10/08/18 at 14:30 Loperamide HCl (Imodium Cap) 2 mg QID PRN PO DIARRHEA; Start 10/09/18 at 12:11 Atorvastatin Calcium (Lipitor) 20 mg QHS PO Last administered on 10/23/18 20:38; Admin Dose 20 MG; Start 10/15/18 at 21:00 Hydrocortisone (Anusol-Hc Supp) 25 mg TID PRN [place] HEMORROID PAIN/ITCHING; Start 10/09/18 at 13:30 Potassium Chloride (Potassium Chloride Pwd/Soln) 20 meq DAILY PO Last administered on 10/24/18 09:41; Admin Dose 20 MEQ; Start 10/09/18 at 13:30 Enoxaparin Sodium (Lovenox) 40 mg DAILY SC Last administered on 10/24/18 10:08; Admin Dose 40 MG; Start 10/14/18 at 09:00 Aspirin (Halfprin) 81 mg DAILY PO Last administered on 10/24/18 09:41; Admin Dose 81 MG; Start 10/14/18 at 14:00 Metoclopramide HCl (Reglan) 5 mg TID PO Last administered on 10/24/18 09:42; Admin Dose 5 MG; Start 10/13/18 at 13:00 Sucralfate (Carafate) 1 gm QID PO Last administered on 10/24/18 09:42; Admin Dose 1 GM; Start 10/13/18 at 13:00 Morphine Sulfate (morphine) 6 mg Q4H PRN PO SEVERE PAIN LEVEL 7-10 Last administered on 10/24/18 10:03; Admin Dose 6 MG; Start 10/15/18 at 15:30 Insulin Aspart (Novolog Insulin Pen) (Adult SC Insulin - Moder... Q4 SC Last administered on 10/24/18 10:09; Admin Dose 4 UNIT; Start 10/19/18 at 01:00 Vitamin A/Vitamin D (Vitamin A & D Oint) 1 applic BID PRN TOP DRYNESS; Start 10/21/18 at 10:30 Nystatin (Nystatin Powder) 1 applic BID TOP Last administered on 10/23/18 20:39; Admin Dose 1 APPLIC; Start 10/21/18 at 21:00 Non-Formulary Medication 2 ea Q4H RIGHT EYE Last administered on 10/23/18 20:40; Admin Dose 2 EA; Start 10/22/18 at 13:00 Insulin Glargine (Lantus) 12 units DAILY@0800 SC Last administered on 10/24/18 10:01; Admin Dose 12 UNITS; Start 10/23/18 at 08:00 Thiamine HCl (Vitamin B1) 100 mg DAILY PO Last administered on 10/24/18 09:41; Admin Dose 100 MG; Start 10/23/18 at 09:00 Metoprolol Succinate (Toprol Xl) 12.5 mg DAILY PO Last administered on 10/24/18 09:51; Admin Dose 12.5 MG; Start 10/23/18 at 21:00 Lisinopril (Zestril) 5 mg DAILY PO Last administered on 10/24/18 09:53; Admin Dose 5 MG; Start 10/23/18 at 09:00 Buspirone HCl (Buspar) 5 mg BID PO Last administered on 10/24/18 09:42; Admin Dose 5 MG; Start 10/23/18 at 21:00 Furosemide (Lasix) 20 mg DAILY PO Last administered on 10/24/18at 09:51; Admin Dose 20 MG; Start 10/24/18 at 09:00 Paroxetine HCl (Paxil) 10 mg DAILY PO Last administered on 10/24/18at 09:42; Admin Dose 10 MG; Start 10/24/18 at 09:00 Piperacillin Sod/ Tazobactam Sod 100 ml @ 200 mls/hr Q8 IVPB Last administered on 10/24/18at 05:33; Admin Dose 200 MLS/HR; Start 10/23/18 at 16:00 MAYA CASTILLO M.D. Oct 24, 2018 11:18
[2018-10-24] MEDS ORDERED: PETROLATUM 5 GM OINT TOP PRN (13:00)
[2018-10-24] MEDS ORDERED: GABAPENTIN 300 MG CAP PO SCH (13:00)
--- NOTE | 2018-10-24 13:41 | CONS ---
Assessment/Plan Assessment/Plan Hospital Course (Demo Recall) No acute events overnight, patient looks comfortable Status post low-grade fevers yesterday with a T-max of 100.5 to current 97.9. WBC 12.4 platelets 580 neutrophils 78.1 BUN [address] of the chest revealed no alveolar pneumonia. Right basilar atelectasis. Small right pleural effusion. Minimal groundglass interstitial infiltrates both lung bases, right greater than left. Question mild interstitial pneumonia. Status post partial drainage of hepatic abscesses. Stable subcapsular fluid collection anterior liver. Cholelithiasis Antimicrobials: Zosyn Abdominal fluid culture growing Klebsiella pneumonia, no anaerobes Physical examination: Well-developed elderly -[place] man in no distress. Head atraumatic normocephalic neck is supple chest rise symmetrical breath sounds diminished bases heart S1-S2 abdomen obese soft bowel sounds present extremities without cyanosis Assessment: 1. Clinical sepsis 2. Liver abscesses ==> s/p repeated IR guided aspiration with catheter placement 3. Healthcare associated pneumonia 4. Diabetes, poorly controlled 5. Hypertension 6. Bipolar disorder and homelessness 7. Poss retention/cystitis 8. Constipation 9. Anemia/Beta Thalassemia Plan: Clinically unchanged, continue present care and antibiotics Consultation Date/Type/Reason Admit Date/Time Oct 02, 2018 at 00:05 Initial Consult Date 10/04/18 Type of Consult id Requesting Provider: HERRERA SALDAÑA NP Date/Time of Note DATE: 10/24/18 TIME: 13:38 Exam/Review of Systems Exam Vitals Vital Signs Date Temp Pulse Resp B/P (MAP) Pulse Ox O2 O2 Flow FiO2 Time Delivery Rate 10/24/18 97.9 98 18 131/84 98 Room Air 08:14 (100) Intake and Output 10/23/18 10/23/18 10/24/18 1515:00 23:00 07:00 IntakeIntake Total 240 ml 619 ml 300 ml OutputOutput Total 1050 ml 650 ml BalanceBalance 240 ml -431 ml -350 ml Results Result Diagram: 10/24/18 0553 10/24/18 0553 Results 24hrs Laboratory Tests Test 10/23/18 18:28 10/23/18 20:32 10/24/18 00:41 10/24/18 05:32 Bedside Glucose 177 159 154 175 Test 10/24/18 05:53 10/24/18 09:33 10/24/18 13:32 White Blood Count 12.4 H Red Blood Count 3.78 L Hemoglobin 8.7 L Hematocrit 28.2 L Mean Corpuscular 74.6 L Volume Mean Corpuscular 23.0 L Hemoglobin Mean Corpuscular 30.9 L Hemoglobin Concent Red Cell 15.9 H Distribution Width Platelet Count 580 H Mean Platelet Volume 9.4 Immature 1.100 H Granulocytes % Neutrophils % 78.1 H Segmented 85 H Neutrophils % (Manual) Band Neutrophils % 1 (Manual) Lymphocytes % 12.0 L Lymphocytes % 10 L (Manual) Reactive Lymphocytes 1 H % (Manual) Monocytes % 7.7 Monocytes % (Manual) 3 Eosinophils % 0.6 Basophils % 0.5 Nucleated Red Blood 0.0 Cells % Immature 0.140 H Granulocytes # Neutrophils # 9.7 H Neutrophils # 10.6 H (Manual) Band Neutrophils # 0.1 Lymphocytes (Manual) 1.2 Lymphocytes # 1.5 Reactive Lymphocytes 0.1 H # Monocytes # 1.0 H Monocytes # (Manual) 0.3 Eosinophils # 0.1 Basophils # 0.1 Nucleated Red Blood 0.0 Cells # Platelet Estimate INCREASED Polychromasia 1+ Hypochromasia 2+ Anisocytosis 1+ Microcytosis 1+ Sodium Level 136 Potassium Level 5.1 Chloride Level 98 Carbon Dioxide Level 27 Anion Gap 11 Blood Urea Nitrogen 16 Creatinine 0.39 L Est Glomerular > 60 Filtrat Rate mL/min Glucose Level 178 Calcium Level 9.1 Phosphorus Level 4.3 Magnesium Level 2.2 Total Bilirubin 0.3 Direct Bilirubin 0.00 Indirect Bilirubin 0.3 Aspartate Amino 124 #H Transf (AST/SGOT) Alanine 45 Aminotransferase (AL T/SGPT) Alkaline Phosphatase 1298 H Troponin I < 0.012 Total Protein 7.5 Albumin 3.3 Globulin 4.20 H Albumin/Globulin 0.78 Ratio Lipase 16 L Bedside Glucose 188 198 Medications Medication Current Medications Ondansetron HCl (Zofran Inj) 4 mg Q6H PRN IV NAUSEA AND/OR VOMITING; Start 10/02/18 at 02:00 Albuterol (Proventil 0.083% (Neb)) 2.5 mg Q2H RESP THERAPY PRN NEB SHORTNESS OF BREATH; Start 10/02/18 at 02:00 Acetaminophen (Tylenol Liquid) 650 mg Q6H PRN PO PAIN LEVEL 1-3 OR FEVER Last administered on 10/23/18 16:10; Admin Dose 650 MG; Start 10/02/18 at 02:00 Menthol/Methyl Salicylate (Memo Erazo) 1 applic TID PRN TOP pain; Start 10/02/18 at 06:30 Tramadol HCl (Ultram) 50 mg Q6H PRN PO MODERATE PAIN LEVEL 4-6 Last administered on 10/19/18 10:27; Admin Dose 50 MG; Start 10/02/18 at 11:00 Potassium Chloride (Potassium Chloride Pwd/Soln) 20 meq PER PROTOCOL PRN PO POTASSIUM REPLACEMENT PROTOCOL; Start 10/02/18 at 11:30 Potassium Chloride (Potassium Chloride Pwd/Soln) 30 meq PER PROTOCOL PRN PO POTASSIUM REPLACEMENT PROTOCOL; Start 10/02/18 at 11:30 Potassium Chloride (Potassium Chloride Pwd/Soln) 40 meq PER PROTOCOL PRN PO POTASSIUM REPLACEMENT PROTOCOL; Start 10/02/18 at 11:30 Miscellaneous Information 1 ea NOTE XX ; Start 10/02/18 at 22:00 Glucose (Glutose) 15 gm Q15M PRN PO DECREASED GLUCOSE; Start 10/02/18 at 22:00 Glucose (Glutose) 22.5 gm Q15M PRN PO DECREASED GLUCOSE; Start 10/02/18 at 22:00 Dextrose (D50w Syringe) 25 ml Q15M PRN IV DECREASED GLUCOSE Last administered on 10/12/18 20:44; Admin Dose 25 ML; Start 10/02/18 at 22:00 Dextrose (D50w Syringe) 50 ml Q15M PRN IV DECREASED GLUCOSE Last administered on 10/12/18 18:15; Admin Dose 50 ML; Start 10/02/18 at 22:00 Glucagon (Glucagen) 1 mg Q15M PRN IM DECREASED GLUCOSE; Start 10/02/18 at 22:00 Glucose (Glutose) 15 gm Q15M PRN BUCCAL DECREASED GLUCOSE; Start 10/02/18 at 22:00 Diagnostic Test (Pha) (Accu-Chek) 1 ea AC MEALS AND BEDTIME XX Last administered on 10/23/18 20:40; Admin Dose 1 EA; Start 10/03/18 at 17:05 Calcium Carbonate (Tums) 500 mg Q4 PRN PO epigastric pain Last administered on 10/16/18 11:32; Admin Dose 500 MG; Start 10/05/18 at 01:30 Pantoprazole (Protonix Tab) 40 mg DAILY@06 PO Last administered on 10/24/18 05:33; Admin Dose 40 MG; Start 10/06/18 at 06:00 Lactobacillus Acidophilus/ Rhamnosus (Culturelle) 1 cap BID PO Last administered on 10/24/18 09:41; Admin Dose 1 CAP; Start 10/08/18 at 21:00 Acetaminophen/ Hydrocodone Bitart ([place] (10/325)) 1 tab Q6H PRN PO SEVERE PAIN LEVEL 7-10 Last administered on 10/24/18 08:03; Admin Dose 1 TAB; Start 10/08/18 at 14:30 Nicotine (Nicoderm 14 Mg/ 24hr) 1 patch DAILY TRANSDERM Last administered on 10/24/18 10:10; Admin Dose 1 PATCH; Start 10/08/18 at 14:30 Loperamide HCl (Imodium Cap) 2 mg QID PRN PO DIARRHEA; Start 10/09/18 at 12:11 Hydrocortisone (Anusol-Hc Supp) 25 mg TID PRN [place] HEMORROID PAIN/ITCHING; Start 10/09/18 at 13:30 Potassium Chloride (Potassium Chloride Pwd/Soln) 20 meq DAILY PO Last administered on 10/24/18 09:41; Admin Dose 20 MEQ; Start 10/09/18 at 13:30 Enoxaparin Sodium (Lovenox) 40 mg DAILY SC Last administered on 10/24/18 10:08; Admin Dose 40 MG; Start 10/14/18 at 09:00 Metoclopramide HCl (Reglan) 5 mg TID PO Last administered on 10/24/18 09:42; Admin Dose 5 MG; Start 10/13/18 at 13:00 Sucralfate (Carafate) 1 gm QID PO Last administered on 10/24/18 09:42; Admin Dose 1 GM; Start 10/13/18 at 13:00 Morphine Sulfate (morphine) 6 mg Q4H PRN PO SEVERE PAIN LEVEL 7-10 Last administered on 10/24/18 10:03; Admin Dose 6 MG; Start 10/15/18 at 15:30 Insulin Aspart (Novolog Insulin Pen) (Adult SC Insulin - Moder... Q4 SC Last administered on 10/24/18 10:09; Admin Dose 4 UNIT; Start 10/19/18 at 01:00 Vitamin A/Vitamin D (Vitamin A & D Oint) 1 applic BID PRN TOP DRYNESS; Start 10/21/18 at 10:30 Nystatin (Nystatin Powder) 1 applic BID TOP Last administered on 10/23/18 20:39; Admin Dose 1 APPLIC; Start 10/21/18 at 21:00 Non-Formulary Medication 2 ea Q4H RIGHT EYE Last administered on 10/23/18 20:40; Admin Dose 2 EA; Start 10/22/18 at 13:00 Insulin Glargine (Lantus) 12 units DAILY@0800 SC Last administered on 10/24/18 10:01; Admin Dose 12 UNITS; Start 10/23/18 at 08:00 Thiamine HCl (Vitamin B1) 100 mg DAILY PO Last administered on 10/24/18 09:41; Admin Dose 100 MG; Start 10/23/18 at 09:00 Metoprolol Succinate (Toprol Xl) 12.5 mg DAILY PO Last administered on 10/24/18 09:51; Admin Dose 12.5 MG; Start 10/23/18 at 21:00 Lisinopril (Zestril) 5 mg DAILY PO Last administered on 10/24/18 09:53; Admin Dose 5 MG; Start 10/23/18 at 09:00 Buspirone HCl (Buspar) 5 mg BID PO Last administered on 10/24/18 09:42; Admin Dose 5 MG; Start 10/23/18 at 21:00 Furosemide (Lasix) 20 mg DAILY PO Last administered on 10/24/18 09:51; Admin Dose 20 MG; Start 10/24/18 at 09:00 Paroxetine HCl (Paxil) 10 mg DAILY PO Last administered on 10/24/18 09:42; Admin Dose 10 MG; Start 10/24/18 at 09:00 Piperacillin Sod/ Tazobactam Sod 100 ml @ 200 mls/hr Q8 IVPB Last administered on 10/24/18 05:33; Admin Dose 200 MLS/HR; Start 10/23/18 at 16:00 Aspirin (Halfprin) 81 mg DAILY PO ; Start 10/29/18 at 14:00 Atorvastatin Calcium (Lipitor) 20 mg QHS PO ; Start 10/29/18 at 21:00 Gabapentin (Neurontin) 200 mg TID PO ; Start 10/24/18 at 13:00 Senna/Docusate Sodium (Senokot-S) 2 tab HS PO ; Start 10/24/18 at 21:00 Petrolatum (Vaseline) 1 ea BID PRN TOP DRY SKIN; Start 10/24/18 at 13:00 AURORA ARZOLA NP Oct 24, 2018 13:41
[2018-10-24] MEDS: GABAPENTIN 100 MG CAP PO SCH ×2 (14:08→20:21)
--- NOTE | 2018-10-24 14:30 | PN ---
Date/Time of Note Date/Time of Note DATE: 10/24/18 TIME: 14:27 Assessment/Plan VTE Prophylaxis Risk score (from Nsg)>0 risk: 4 SCD applied (from Ns): No SCD contraindicated: low risk/ambulating Pharmacological prophylaxis: LMWH Lines/Catheters IV Catheter Type (from Nrsg): Peripheral IV Urinary Cath still in place: No Assessment/Plan Hospital Course A/P 1. DKA vs hyperosmolar hyperglycemic state, stable/ improved cont insulin 2. Nonadherence, sp multiple sessions of counseling. Adjusted insulin/ diet. Definitely will be challenging/high risk of future DKA. 3. Abn LFTs/imaging. Abscess, sp aspiration *2, klebsiella. due to nonadher ence, hopefully we can dc on po's. cont drain care. 4. Homeless/ ftt, may need placement/ SNF. options have been given in the past but he continues to reside at his previous place of living. 5. Tobacco abuse, sp counseling offered patch 6. Bipolar dz/ mod stable observe 7. Hepatic nodule? 8. Dyslipidemia/metabolic syndrome 9. Anemia combination jolene and possible chr. stable observe. sp EGD/ colon. Gastritis but no active bleed. 10. Hypertension? 11. Diarrhea, c dif -ve. DC senna, sp endoscopy. 12. Subacute vision loss Rt. Present MRI - Ischemic stroke. stable, Continue risk factor modification. 13. Ac/subacute ischemic stroke. stable cont rfm. sp carotids/ echo. 14. Possible aspiration pneumonia due to stroke vs impulse eating/ behavior, ST consulted. Finishing antibiotics. 15. 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 Ascites, continue Lasix and beta-asher 17. Thalassemia stable observe 18. Lethargy, appetite mod but not usual for his baseline. Consider healthcare associated pneumonia or ileus no evidence of DVT Subjective: 10/08 no fever nausea vomiting toxicity, following commands. wants more food/ calories 10/09; diarrhea; denies george abd pain. 10/10: No distress no events. 10/11: Nonadherence to diet medications imaging and diagnostic studies. Took GI prep however had diarrhea 10/12: Sugar in the 70s controlled while n.p.o. No nausea vomiting. No chest pain. Subjective dizziness but vitals findings are negative. Fever noted. Colonoscopy today 10/13: Patient stated he had transient vision disturbance. Similar issue in past. Other [place] nonfocal. Right eye discomfort noted. 10/14: Fever overnight. Possible aspiration pneumonia. Start empiric antibiotics appreciate ST eval 10/22: Denies any distress except abdominal pain. Probably ruq drain related. No dyspnea fever. Mood much better/stable, not as demanding. 10/23 energy/mood appears less than baseline. Denies any discomfort like cough fever. Has some abd discomfort but no known aggravating factors. 10/24: Intermittent fever. Again mood energy appetite is usually less than his baseline. Denies discomfort. BM post MOM yesterday. O: Vss PE No pallor/ icterus, Regular no mrg Clear Benign nt nd; no rrg drain c/d/i No edema Neuro: Grossly nonfocal Disposition: hopefully sniff with IV antibiotics for his abscess. drain/ snf soon. Result Diagram: 10/24/18 0553 10/24/18 0553 Results 24hrs Laboratory Tests Test 10/23/18 18:28 10/23/18 20:32 10/24/18 00:41 10/24/18 05:32 Bedside Glucose 177 159 154 175 Test 10/24/18 05:53 10/24/18 09:33 10/24/18 13:32 White Blood Count 12.4 H Red Blood Count 3.78 L Hemoglobin 8.7 L Hematocrit 28.2 L Mean Corpuscular 74.6 L Volume Mean Corpuscular 23.0 L Hemoglobin Mean Corpuscular 30.9 L Hemoglobin Concent Red Cell 15.9 H Distribution Width Platelet Count 580 H Mean Platelet Volume 9.4 Immature 1.100 H Granulocytes % Neutrophils % 78.1 H Segmented 85 H Neutrophils % (Manual) Band Neutrophils % 1 (Manual) Lymphocytes % 12.0 L Lymphocytes % 10 L (Manual) Reactive Lymphocytes 1 H % (Manual) Monocytes % 7.7 Monocytes % (Manual) 3 Eosinophils % 0.6 Basophils % 0.5 Nucleated Red Blood 0.0 Cells % Immature 0.140 H Granulocytes # Neutrophils # 9.7 H Neutrophils # 10.6 H (Manual) Band Neutrophils # 0.1 Lymphocytes (Manual) 1.2 Lymphocytes # 1.5 Reactive Lymphocytes 0.1 H # Monocytes # 1.0 H Monocytes # (Manual) 0.3 Eosinophils # 0.1 Basophils # 0.1 Nucleated Red Blood 0.0 Cells # Platelet Estimate INCREASED Polychromasia 1+ Hypochromasia 2+ Anisocytosis 1+ Microcytosis 1+ Sodium Level 136 Potassium Level 5.1 Chloride Level 98 Carbon Dioxide Level 27 Anion Gap 11 Blood Urea Nitrogen 16 Creatinine 0.39 L Est Glomerular > 60 Filtrat Rate mL/min Glucose Level 178 Calcium Level 9.1 Phosphorus Level 4.3 Magnesium Level 2.2 Total Bilirubin 0.3 Direct Bilirubin 0.00 Indirect Bilirubin 0.3 Aspartate Amino 124 #H Transf (AST/SGOT) Alanine 45 Aminotransferase (AL T/SGPT) Alkaline Phosphatase 1298 H Troponin I < 0.012 Total Protein 7.5 Albumin 3.3 Globulin 4.20 H Albumin/Globulin 0.78 Ratio Lipase 16 L Bedside Glucose 188 198 Exam/Review of Systems Exam Vitals Vital Signs Date Temp Pulse Resp B/P (MAP) Pulse Ox O2 O2 Flow FiO2 Time Delivery Rate 10/24/18 97.9 98 18 131/84 98 Room Air 08:14 (100) Intake and Output 10/23/18 10/23/18 10/24/18 1414:59 22:59 06:59 IntakeIntake Total 240 ml 619 ml 300 ml OutputOutput Total 1050 ml 650 ml BalanceBalance 240 ml -431 ml -350 ml Results Results 24hrs Laboratory Tests Test 10/23/18 18:28 10/23/18 20:32 10/24/18 00:41 10/24/18 05:32 Bedside Glucose 177 159 154 175 Test 10/24/18 05:53 10/24/18 09:33 10/24/18 13:32 White Blood Count 12.4 H Red Blood Count 3.78 L Hemoglobin 8.7 L Hematocrit 28.2 L Mean Corpuscular 74.6 L Volume Mean Corpuscular 23.0 L Hemoglobin Mean Corpuscular 30.9 L Hemoglobin Concent Red Cell 15.9 H Distribution Width Platelet Count 580 H Mean Platelet Volume 9.4 Immature 1.100 H Granulocytes % Neutrophils % 78.1 H Segmented 85 H Neutrophils % (Manual) Band Neutrophils % 1 (Manual) Lymphocytes % 12.0 L Lymphocytes % 10 L (Manual) Reactive Lymphocytes 1 H % (Manual) Monocytes % 7.7 Monocytes % (Manual) 3 Eosinophils % 0.6 Basophils % 0.5 Nucleated Red Blood 0.0 Cells % Immature 0.140 H Granulocytes # Neutrophils # 9.7 H Neutrophils # 10.6 H (Manual) Band Neutrophils # 0.1 Lymphocytes (Manual) 1.2 Lymphocytes # 1.5 Reactive Lymphocytes 0.1 H # Monocytes # 1.0 H Monocytes # (Manual) 0.3 Eosinophils # 0.1 Basophils # 0.1 Nucleated Red Blood 0.0 Cells # Platelet Estimate INCREASED Polychromasia 1+ Hypochromasia 2+ Anisocytosis 1+ Microcytosis 1+ Sodium Level 136 Potassium Level 5.1 Chloride Level 98 Carbon Dioxide Level 27 Anion Gap 11 Blood Urea Nitrogen 16 Creatinine 0.39 L Est Glomerular > 60 Filtrat Rate mL/min Glucose Level 178 Calcium Level 9.1 Phosphorus Level 4.3 Magnesium Level 2.2 Total Bilirubin 0.3 Direct Bilirubin 0.00 Indirect Bilirubin 0.3 Aspartate Amino 124 #H Transf (AST/SGOT) Alanine 45 Aminotransferase (AL T/SGPT) Alkaline Phosphatase 1298 H Troponin I < 0.012 Total Protein 7.5 Albumin 3.3 Globulin 4.20 H Albumin/Globulin 0.78 Ratio Lipase 16 L Bedside Glucose 188 198 Medications Medication Current Medications Ondansetron HCl (Zofran Inj) 4 mg Q6H PRN IV NAUSEA AND/OR VOMITING; Start at 02:00 Albuterol (Proventil 0.083% (Neb)) 2.5 mg Q2H RESP THERAPY PRN NEB SHORTNESS OF BREATH; Start 10/02/18 at 02:00 Acetaminophen (Tylenol Liquid) 650 mg Q6H PRN PO PAIN LEVEL 1-3 OR FEVER Last administered on 10/23/18at 16:10; Admin Dose 650 MG; Start 10/02/18 at 02:00 Menthol/Methyl Salicylate (Memo Erazo) 1 applic TID PRN TOP pain; Start 10/02/18 at 06:30 Tramadol HCl (Ultram) 50 mg Q6H PRN PO MODERATE PAIN LEVEL 4-6 Last administered on 10/19/18at 10:27; Admin Dose 50 MG; Start 10/02/18 at 11:00 Potassium Chloride (Potassium Chloride Pwd/Soln) 20 meq PER PROTOCOL PRN PO POTASSIUM REPLACEMENT PROTOCOL; Start 10/02/18 at 11:30 Potassium Chloride (Potassium Chloride Pwd/Soln) 30 meq PER PROTOCOL PRN PO POTASSIUM REPLACEMENT PROTOCOL; Start 10/02/18 at 11:30 Potassium Chloride (Potassium Chloride Pwd/Soln) 40 meq PER PROTOCOL PRN PO POTASSIUM REPLACEMENT PROTOCOL; Start 10/02/18 at 11:30 Miscellaneous Information 1 ea NOTE XX ; Start 10/02/18 at 22:00 Glucose (Glutose) 15 gm Q15M PRN PO DECREASED GLUCOSE; Start 10/02/18 at 22:00 Glucose (Glutose) 22.5 gm Q15M PRN PO DECREASED GLUCOSE; Start 10/02/18 at 22:00 Dextrose (D50w Syringe) 25 ml Q15M PRN IV DECREASED GLUCOSE Last administered on 10/12/18 20:44; Admin Dose 25 ML; Start 10/02/18 at 22:00 Dextrose (D50w Syringe) 50 ml Q15M PRN IV DECREASED GLUCOSE Last administered on 10/12/18 18:15; Admin Dose 50 ML; Start 10/02/18 at 22:00 Glucagon (Glucagen) 1 mg Q15M PRN IM DECREASED GLUCOSE; Start 10/02/18 at 22:00 Glucose (Glutose) 15 gm Q15M PRN BUCCAL DECREASED GLUCOSE; Start 10/02/18 at 22:00 Diagnostic Test (Pha) (Accu-Chek) 1 ea AC MEALS AND BEDTIME XX Last administered on 10/23/18 20:40; Admin Dose 1 EA; Start 10/03/18 at 17:05 Calcium Carbonate (Tums) 500 mg Q4 PRN PO epigastric pain Last administered on 10/16/18 11:32; Admin Dose 500 MG; Start 10/05/18 at 01:30 Pantoprazole (Protonix Tab) 40 mg DAILY@06 PO Last administered on 10/24/18 05:33; Admin Dose 40 MG; Start 10/06/18 at 06:00 Lactobacillus Acidophilus/ Rhamnosus (Culturelle) 1 cap BID PO Last administered on 10/24/18 09:41; Admin Dose 1 CAP; Start 10/08/18 at 21:00 Acetaminophen/ Hydrocodone Bitart ([place] (10/325)) 1 tab Q6H PRN PO SEVERE PAIN LEVEL 7-10 Last administered on 10/24/18 08:03; Admin Dose 1 TAB; Start 10/08/18 at 14:30 Nicotine (Nicoderm 14 Mg/ 24hr) 1 patch DAILY TRANSDERM Last administered on 10/24/18 10:10; Admin Dose 1 PATCH; Start 10/08/18 at 14:30 Loperamide HCl (Imodium Cap) 2 mg QID PRN PO DIARRHEA; Start 10/09/18 at 12:11 Hydrocortisone (Anusol-Hc Supp) 25 mg TID PRN [place] HEMORROID PAIN/ITCHING; Start 10/09/18 at 13:30 Potassium Chloride (Potassium Chloride Pwd/Soln) 20 meq DAILY PO Last admi nistered on 10/24/18 09:41; Admin Dose 20 MEQ; Start 10/09/18 at 13:30 Enoxaparin Sodium (Lovenox) 40 mg DAILY SC Last administered on 10/24/18 10:08; Admin Dose 40 MG; Start 10/14/18 at 09:00 Metoclopramide HCl (Reglan) 5 mg TID PO Last administered on 10/24/18 13:39; Admin Dose 5 MG; Start 10/13/18 at 13:00 Sucralfate (Carafate) 1 gm QID PO Last administered on 10/24/18 13:39; Admin Dose 1 GM; Start 10/13/18 at 13:00 Morphine Sulfate (morphine) 6 mg Q4H PRN PO SEVERE PAIN LEVEL 7-10 Last administered on 10/24/18 10:03; Admin Dose 6 MG; Start 10/15/18 at 15:30 Insulin Aspart (Novolog Insulin Pen) (Adult SC Insulin - Moder... Q4 SC Last administered on 10/24/18 13:41; Admin Dose 4 UNIT; Start 10/19/18 at 01:00 Vitamin A/Vitamin D (Vitamin A & D Oint) 1 applic BID PRN TOP DRYNESS; Start 10/21/18 at 10:30 Nystatin (Nystatin Powder) 1 applic BID TOP Last administered on 10/23/18 20 :39; Admin Dose 1 APPLIC; Start 10/21/18 at 21:00 Non-Formulary Medication 2 ea Q4H RIGHT EYE Last administered on 10/23/18 20:40; Admin Dose 2 EA; Start 10/22/18 at 13:00 Insulin Glargine (Lantus) 12 units DAILY@0800 SC Last administered on 10/24/18 10:01; Admin Dose 12 UNITS; Start 10/23/18 at 08:00 Thiamine HCl (Vitamin B1) 100 mg DAILY PO Last administered on 10/24/18 09:41; Admin Dose 100 MG; Start 10/23/18 at 09:00 Metoprolol Succinate (Toprol Xl) 12.5 mg DAILY PO Last administered on 10/24/18 09:51; Admin Dose 12.5 MG; Start 10/23/18 at 21:00 Lisinopril (Zestril) 5 mg DAILY PO Last administered on 10/24/18 09:53; Admin Dose 5 MG; Start 10/23/18 at 09:00 Buspirone HCl (Buspar) 5 mg BID PO Last administered on 10/24/18 09:42; Admin Dose 5 MG; Start 10/23/18 at 21:00 Furosemide (Lasix) 20 mg DAILY PO Last administered on 10/24/18 09:51; Admin Dose 20 MG; Start 10/24/18 at 09:00 Paroxetine HCl (Paxil) 10 mg DAILY PO Last administered on 10/24/18 09:42; Admin Dose 10 MG; Start 10/24/18 at 09:00 Piperacillin Sod/ Tazobactam Sod 100 ml @ 200 mls/hr Q8 IVPB Last administered on 10/24/18 13:39; Admin Dose 200 MLS/HR; Start 10/23/18 at 16:00 Aspirin (Halfprin) 81 mg DAILY PO ; Start 10/29/18 at 14:00 Atorvastatin Calcium (Lipitor) 20 mg QHS PO ; Start 10/29/18 at 21:00 Senna/Docusate Sodium (Senokot-S) 2 tab HS PO ; Start 10/24/18 at 21:00 Petrolatum (Vaseline) 1 ea BID PRN TOP DRY SKIN; Start 10/24/18 at 13:00 Gabapentin (Neurontin) 200 mg TID PO Last administered on 10/24/18 14:08; Admin Dose 200 MG; Start 10/24/18 at 13:38 MARKO PAYAN MD Oct 24, 2018 14:30
[2018-10-24 19:49] VITALS: BP 99/54; PULSE 92; RESP 20
[2018-10-24] MEDS: SENNA/DOCUSATE NA (8.6MG/50MG) TAB PO SCH (20:20)
[2018-10-25] MEDS: [UNRECOGNIZED DRUG - OTHER] RIGHT EYE SCH ×6 (01:00→20:49)
[2018-10-25] MEDS: Insulin NOVOLOG SS MODERATE Algorithm(NPO/TPN/ENTERAL FEEDS) SC SCH ×6 (01:09→20:43)
[2018-10-25 01:30] VITALS: BP 115/75; PULSE 92; RESP 20
[2018-10-25] MEDS: PIPER-TAZO 3.375 GM IV (PMX) 100 ML IVPB SCH ×3 (05:28→21:23)
[2018-10-25] MEDS: HYDROCODONE/APAP (10/325) TAB PO PRN ×2 (05:28→17:44)
[2018-10-25] MEDS: PANTOPRAZOLE (EC) 40 MG TAB PO SCH (05:28)
[2018-10-25] MEDS: ACCU-CHEK XX SCH ×4 (07:00→21:00)
[2018-10-25] MEDS: POTASSIUM CHLORIDE 20 MEQ POWDER FOR ORAL SOLN PO SCH (08:33)
[2018-10-25] MEDS: METOPROLOL (XL) 25 MG TAB PO SCH (08:34)
[2018-10-25] MEDS: LISINOPRIL 5 MG TAB PO SCH (08:35)
[2018-10-25] MEDS: PAROXETINE 20 MG TAB PO SCH (08:35)
[2018-10-25] MEDS: NICOTINE (14 MG/24 HR) PATCH TRANSDERM SCH (08:35)
[2018-10-25] MEDS: GABAPENTIN 100 MG CAP PO SCH ×3 (08:35→20:45)
[2018-10-25] MEDS: LACTOBACILLUS RHAMNOSUS CAP PO SCH ×2 (08:36→20:45)
[2018-10-25] MEDS: SUCRALFATE 1 GM TAB PO SCH ×4 (08:36→20:45)
[2018-10-25] MEDS: CALCIUM CARBONATE 500 MG CHEW TAB PO PRN (08:36)
[2018-10-25] MEDS: BUSPIRONE 5 MG TAB PO SCH ×2 (08:36→20:45)
[2018-10-25] MEDS: THIAMINE 100 MG TAB PO SCH (08:37)
[2018-10-25] MEDS: FUROSEMIDE 40 MG TAB PO SCH (08:37)
[2018-10-25] MEDS: METOCLOPRAMIDE 5 MG TAB PO SCH ×3 (08:37→20:45)
[2018-10-25] MEDS: ENOXAPARIN 40 MG/0.4 ML SYG SC SCH (08:39)
[2018-10-25] MEDS: INSULIN GLARGINE [LANTus] (100 UNITS/ML) SYG SC SCH (08:39)
[2018-10-25] MEDS: morphine LIQ (10 MG/5 ML) CUP PO PRN (08:41)
[2018-10-25] MEDS: NYSTATIN 30 GM POWDER BTL TOP SCH ×2 (08:48→20:49)
[2018-10-25 08:53] VITALS: BP 114/70; PULSE 96; RESP 19
[2018-10-25 14:00] VITALS: BP 118/66; PULSE 92; RESP 18
--- NOTE | 2018-10-25 14:10 | PN ---
Date/Time of Note Date/Time of Note DATE: 10/25/18 TIME: 14:06 Assessment/Plan VTE Prophylaxis Risk score (from Nsg)>0 risk: 3 SCD applied (from Ns): No SCD contraindicated: patient refusal Pharmacological prophylaxis: LMWH Lines/Catheters IV Catheter Type (from Nrs): [place] Urinary Cath still in place: No Assessment/Plan Hospital Course A/P 1. DKA vs hyperosmolar hyperglycemic state, stable cont insulin 2. Nonadherence, sp multiple sessions of counseling. Adjusted insulin/ diet. will be challenging/high risk of future DKA. 3. Abn LFTs/imaging- Abscess, sp aspiration *2, klebsiella. due to nonadherence, hopefully we can dc on po's. cont drain care. 4. Homeless/ ftt, may need placement/ SNF. options given in the past, prev iously wished to reside at his previous place of living. now agrees to snf. 5. Tobacco abuse, sp counseling offered patch 6. Bipolar dz/ mod stable observe 7. Hepatic nodule? 8. Dyslipidemia/metabolic syndrome 9. Anemia combination jolene and possible chr. stable observe. sp EGD/ colon. Gastritis but no active bleed. 10. Hypertension? 11. Diarrhea, c dif -ve. DC senna, sp endoscopy. 12. Subacute vision loss Rt. Present MRI - Ischemic stroke. stable, Continue risk factor modification. 13. Ac/subacute ischemic stroke. stable cont rfm. sp carotids/ echo. pt/ot/st. not a candidate for aru 14. Possible aspiration pneumonia due to stroke vs impulse eating/ behavior, ST consulted. Finishing antibiotics. 15. 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 Ascites, cont Lasix and beta-asher 17. Thalassemia stable observe 18. Lethargy, appetite mod but not usual for his baseline. consider hcap or ileus or dvt. 10/25- better, probably snf soon Subjective: 10/08 no fever nausea vomiting toxicity, following commands. wants more food/ calories 10/09; diarrhea; denies george abd pain. 10/10: No distress no events. 10/11: Nonadherence to diet medications imaging and diagnostic studies. Took GI prep however had diarrhea 10/12: Sugar in the 70s controlled while n.p.o. No nausea vomiting. No chest pain. Subjective dizziness but vitals findings are negative. Fever noted. Colonoscopy today 10/13: Patient stated he had transient vision disturbance. Similar issue in past. Other [place] nonfocal. Right eye discomfort noted. 10/14: Fever overnight. Possible aspiration pneumonia. Start empiric antibiotics appreciate ST eval 10/22: Denies any distress except abdominal pain. Probably ruq drain related. No dyspnea fever. Mood much better/stable, not as demanding. 10/23 energy/mood appears less than baseline. Denies any discomfort like cough fever. Has some abd discomfort but no known aggravating factors. 10/24: Intermittent fever. Again mood energy appetite is usually less than his baseline. Denies discomfort. BM post MOM yesterday. 10/25: better post bm? no fever/ dyspnea. spoke to him about snf/ dc O: Vss PE No pallor/ icterus Regular no mrg Clear Benign nt nd; no rrg drain c/d/i No edema Neuro: Grossly nonfocal Disposition: hopefully snf w po antibiotics for his abscess & drain tomorrow Result Diagram: 10/25/18 0532 10/25/18 0532 Results 24hrs Laboratory Tests Test 10/24/18 17:18 10/24/18 20:18 10/25/18 01:04 10/25/18 05:31 Bedside Glucose 171 226 H 269 H 242 H Test 10/25/18 05:32 10/25/18 08:28 10/25/18 12:40 White Blood Count 10.2 Red Blood Count 3.35 L Hemoglobin 7.7 L Hematocrit 26.0 L Mean Corpuscular 77.6 L Volume Mean Corpuscular 23.0 L Hemoglobin Mean Corpuscular 29.6 L Hemoglobin Concent Red Cell 15.7 H Distribution Width Platelet Count 584 H Mean Platelet Volume 8.8 Immature 1.700 H Granulocytes % Neutrophils % 67.6 Lymphocytes % 18.2 Monocytes % 10.6 Eosinophils % 1.3 Basophils % 0.6 Nucleated Red Blood 0.0 Cells % Immature 0.170 H Granulocytes # Neutrophils # 6.9 Lymphocytes # 1.9 Monocytes # 1.1 H Eosinophils # 0.1 Basophils # 0.1 Nucleated Red Blood 0.0 Cells # Prothrombin Time 13.0 Prothrombin Time 1.0 Ratio INR International 0.97 Normalized Ratio Sodium Level 133 L Potassium Level 4.3 Chloride Level 96 L Carbon Dioxide Level 30 Anion Gap 7 Blood Urea Nitrogen 25 H Creatinine 0.61 Est Glomerular > 60 Filtrat Rate mL/min Glucose Level 238 H Calcium Level 8.9 Total Bilirubin 0.1 L Direct Bilirubin 0.00 Indirect Bilirubin 0.1 Aspartate Amino 69 H Transf (AST/SGOT) Alanine 48 Aminotransferase (AL T/SGPT) Alkaline Phosphatase 1283 H Total Protein 7.0 Albumin 3.2 L Globulin 3.80 H Albumin/Globulin 0.84 Ratio Bedside Glucose 159 229 H Exam/Review of Systems Exam Vitals Vital Signs Date Temp Pulse Resp B/P (MAP) Pulse Ox O2 O2 Flow FiO2 Time Delivery Rate 10/25/18 98.1 96 19 114/70 99 08:53 (85) 10/24/18 Room Air 08:14 Intake and Output 10/24/18 10/24/18 10/25/18 1515:00 23:00 07:00 IntakeIntake Total 620 ml 200 ml 900 ml OutputOutput Total 0 ml 1520 ml BalanceBalance 620 ml 200 ml -620 ml Results Results 24hrs Laboratory Tests Test 10/24/18 17:18 10/24/18 20:18 10/25/18 01:04 10/25/18 05:31 Bedside Glucose 171 226 H 269 H 242 H Test 10/25/18 05:32 10/25/18 08:28 10/25/18 12:40 White Blood Count 10.2 Red Blood Count 3.35 L Hemoglobin 7.7 L Hematocrit 26.0 L Mean Corpuscular 77.6 L Volume Mean Corpuscular 23.0 L Hemoglobin Mean Corpuscular 29.6 L Hemoglobin Concent Red Cell 15.7 H Distribution Width Platelet Count 584 H Mean Platelet Volume 8.8 Immature 1.700 H Granulocytes % Neutrophils % 67.6 Lymphocytes % 18.2 Monocytes % 10.6 Eosinophils % 1.3 Basophils % 0.6 Nucleated Red Blood 0.0 Cells % Immature 0.170 H Granulocytes # Neutrophils # 6.9 Lymphocytes # 1.9 Monocytes # 1.1 H Eosinophils # 0.1 Basophils # 0.1 Nucleated Red Blood 0.0 Cells # Prothrombin Time 13.0 Prothrombin Time 1.0 Ratio INR International 0.97 Normalized Ratio Sodium Level 133 L Potassium Level 4.3 Chloride Level 96 L Carbon Dioxide Level 30 Anion Gap 7 Blood Urea Nitrogen 25 H Creatinine 0.61 Est Glomerular > 60 Filtrat Rate mL/min Glucose Level 238 H Calcium Level 8.9 Total Bilirubin 0.1 L Direct Bilirubin 0.00 Indirect Bilirubin 0.1 Aspartate Amino 69 H Transf (AST/SGOT) Alanine 48 Aminotransferase (AL T/SGPT) Alkaline Phosphatase 1283 H Total Protein 7.0 Albumin 3.2 L Globulin 3.80 H Albumin/Globulin 0.84 Ratio Bedside Glucose 159 229 H Medications Medication Current Medications Ondansetron HCl (Zofran Inj) 4 mg Q6H PRN IV NAUSEA AND/OR VOMITING; Start 10/02/18 at 02:00 Albuterol (Proventil 0.083% (Neb)) 2.5 mg Q2H RESP THERAPY PRN NEB SHORTNESS OF BREATH; Start 10/02/18 at 02:00 Acetaminophen (Tylenol Liquid) 650 mg Q6H PRN PO PAIN LEVEL 1-3 OR FEVER Last administered on 10/23/18at 16:10; Admin Dose 650 MG; Start 10/02/18 at 02:00 Menthol/Methyl Salicylate (Memo Erazo) 1 applic TID PRN TOP pain; Start 10/02/18 at 06:30 Tramadol HCl (Ultram) 50 mg Q6H PRN PO MODERATE PAIN LEVEL 4-6 Last administered on 10/19/18at 10:27; Admin Dose 50 MG; Start 10/02/18 at 11:00 Potassium Chloride (Potassium Chloride Pwd/Soln) 20 meq PER PROTOCOL PRN PO POTASSIUM REPLACEMENT PROTOCOL; Start 10/02/18 at 11:30 Potassium Chloride (Potassium Chloride Pwd/Soln) 30 meq PER PROTOCOL PRN PO POTASSIUM REPLACEMENT PROTOCOL; Start 10/02/18 at 11:30 Potassium Chloride (Potassium Chloride Pwd/Soln) 40 meq PER PROTOCOL PRN PO P OTASSIUM REPLACEMENT PROTOCOL; Start 10/02/18 at 11:30 Miscellaneous Information 1 ea NOTE XX ; Start 10/02/18 at 22:00 Glucose (Glutose) 15 gm Q15M PRN PO DECREASED GLUCOSE; Start 10/02/18 at 22:00 Glucose (Glutose) 22.5 gm Q15M PRN PO DECREASED GLUCOSE; Start 10/02/18 at 22:00 Dextrose (D50w Syringe) 25 ml Q15M PRN IV DECREASED GLUCOSE Last administered on 10/12/18at 20:44; Admin Dose 25 ML; Start 10/02/18 at 22:00 Dextrose (D50w Syringe) 50 ml Q15M PRN IV DECREASED GLUCOSE Last administered on 10/12/18 18:15; Admin Dose 50 ML; Start 10/02/18 at 22:00 Glucagon (Glucagen) 1 mg Q15M PRN IM DECREASED GLUCOSE; Start 10/02/18 at 22:00 Glucose (Glutose) 15 gm Q15M PRN BUCCAL DECREASED GLUCOSE; Start 10/02/18 at 22:00 Diagnostic Test (Pha) (Accu-Chek) 1 ea AC MEALS AND BEDTIME XX Last adm inistered on 10/23/18 20:40; Admin Dose 1 EA; Start 10/03/18 at 17:05 Calcium Carbonate (Tums) 500 mg Q4 PRN PO epigastric pain Last administered on 10/25/18 08:36; Admin Dose 500 MG; Start 10/05/18 at 01:30 Pantoprazole (Protonix Tab) 40 mg DAILY@06 PO Last administered on 10/25/18 05:28; Admin Dose 40 MG; Start 10/06/18 at 06:00 Lactobacillus Acidophilus/ Rhamnosus (Culturelle) 1 cap BID PO Last administered on 10/25/18 08:36; Admin Dose 1 CAP; Start 10/08/18 at 21:00 Acetaminophen/ Hydrocodone Bitart ([place] (10/325)) 1 tab Q6H PRN PO SEVERE PAIN LEVEL 7-10 Last administered on 10/25/18 05:28; Admin Dose 1 TAB; Start 10/08/18 at 14:30 Nicotine (Nicoderm 14 Mg/ 24hr) 1 patch DAILY TRANSDERM Last administered on 10/25/18 08:35; Admin Dose 1 PATCH; Start 10/08/18 at 14:30 Loperamide HCl (Imodium Cap) 2 mg QID PRN PO DIARRHEA; Start 10/09/18 at 12:11 Hydrocortisone (Anusol-Hc Supp) 25 mg TID PRN [place] HEMORROID PAIN/ITCHING; Start 10/09/18 at 13:30 Potassium Chloride (Potassium Chloride Pwd/Soln) 20 meq DAILY PO Last administered on 10/25/18 08:33; Admin Dose 20 MEQ; Start 10/09/18 at 13:30 Enoxaparin Sodium (Lovenox) 40 mg DAILY SC Last administered on 10/25/18 08:39; Admin Dose 40 MG; Start 10/14/18 at 09:00 Metoclopramide HCl (Reglan) 5 mg TID PO Last administered on 10/25/18 12:41; Admin Dose 5 MG; Start 10/13/18 at 13:00 Sucralfate (Carafate) 1 gm QID PO Last administered on 10/25/18 12:41; Admin Dose 1 GM; Start 10/13/18 at 13:00 Morphine Sulfate (morphine) 6 mg Q4H PRN PO SEVERE PAIN LEVEL 7-10 Last administered on 10/25/18 08:41; Admin Dose 6 MG; Start 10/15/18 at 15:30 Insulin Aspart (Novolog Insulin Pen) (Adult SC Insulin - Moder... Q4 SC Last administered on 10/25/18 12:42; Admin Dose 6 UNIT; Start 10/19/18 at 01:00 Vitamin A/Vitamin D (Vitamin A & D Oint) 1 applic BID PRN TOP DRYNESS; Start 10/21/18 at 10:30 Nystatin (Nystatin Powder) 1 applic BID TOP Last administered on 10/25/18 08:48; Admin Dose 1 APPLIC; Start 10/21/18 at 21:00 Non-Formulary Medication 2 ea Q4H RIGHT EYE Last administered on 10/25/18 12:41; Admin Dose 2 EA; Start 10/22/18 at 13:00 Insulin Glargine (Lantus) 12 units DAILY@0800 SC Last administered on 10/25/18 08:39; Admin Dose 12 UNITS; Start 10/23/18 at 08:00 Thiamine HCl (Vitamin B1) 100 mg DAILY PO Last administered on 10/25/18 08:37; Admin Dose 100 MG; Start 10/23/18 at 09:00 Metoprolol Succinate (Toprol Xl) 12.5 mg DAILY PO Last administered on 10/25/18 08:34; Admin Dose 12.5 MG; Start 10/23/18 at 21:00 Lisinopril (Zestril) 5 mg DAILY PO Last administered on 10/25/18 08:35; Admin Dose 5 MG; Start 10/23/18 at 09:00 Buspirone HCl (Buspar) 5 mg BID PO Last administered on 10/25/18 08:36; Admin Dose 5 MG; Start 10/23/18 at 21:00 Furosemide (Lasix) 20 mg DAILY PO Last administered on 10/25/18 08:37; Admin Dose 20 MG; Start 10/24/18 at 09:00 Paroxetine HCl (Paxil) 10 mg DAILY PO Last administered on 10/25/18 08:35; Admin Dose 10 MG; Start 10/24/18 at 09:00 Piperacillin Sod/ Tazobactam Sod 100 ml @ 200 mls/hr Q8 IVPB Last administered on 10/25/18 05:28; Admin Dose 200 MLS/HR; Start 10/23/18 at 16:00 Aspirin (Halfprin) 81 mg DAILY PO ; Start 10/29/18 at 14:00 Atorvastatin Calcium (Lipitor) 20 mg QHS PO ; Start 10/29/18 at 21:00 Senna/Docusate Sodium (Senokot-S) 2 tab HS PO Last administered on 10/24/18 20:20; Admin Dose 2 TAB; Start 10/24/18 at 21:00 Petrolatum (Vaseline) 1 ea BID PRN TOP DRY SKIN; Start 10/24/18 at 13:00 Gabapentin (Neurontin) 200 mg TID PO Last administered on 10/25/18 12:41; Admin Dose 200 MG; Start 10/24/18 at 13:38 MARKO PAYAN MD Oct 25, 2018 14:10
--- NOTE | 2018-10-25 14:46 | CONS ---
Assessment/Plan Assessment/Plan Hospital Course (Demo Recall) #Anemia -pt is now confirmed to have Beta Thalassemia which is certainly a contributing factor to his microcytic anemia -initially pt was noted to have a low iron saturation in the setting of a high ferritin and low TIBC. Thus there is also a component of chronic inflammation from the underlying liver abscess and diabetes, as well as a component of iron deficiency. now s/p 10 days of IV iron -EGD and coloscopy did not reveal evidence of active GI bleed although colon prep was suboptimal -there does not seem to be evidence of hemolysis given the elevated haptoglobin -negative SPEP rules out monoclonal gammopathy -patient's epo level is elevated. I do not feel he would benefit from procrit at this time #Liver abscess -this is the likely cause of the elevated alk phos. negative bone scan is noted -s/p IR guided drainage x 2 of the liver abscess -continue abx for liver abscess. pt is now on zosyn #DM -uncontrolled -continue insulin per primary team #Bipolar -continue mood stabilizers -continue mood stabilizers Consultation Date/Type/Reason Admit Date/Time Oct 02, 2018 at 00:05 Initial Consult Date 10/04/18 Type of Consult Hematology Reason for Consultation anemia Requesting Provider: HERRERA SALDAÑA NP Date/Time of Note DATE: 10/25/18 TIME: 14:45 24 HR Interval Summary Free Text/Dictation no acute overnight events Exam/Review of Systems Exam Vitals Vital Signs Date Temp Pulse Resp B/P (MAP) Pulse Ox O2 O2 Flow FiO2 Time Delivery Rate 10/25/18 98.1 96 19 114/70 99 08:53 (85) 10/24/18 Room Air 08:14 Intake and Output 10/24/18 10/24/18 10/25/18 1414:59 22:59 06:59 IntakeIntake Total 620 ml 200 ml 900 ml OutputOutput Total 0 ml 1520 ml BalanceBalance 620 ml 200 ml -620 ml Constitutional: alert, oriented Psych: no complaints, anxiety, confusion, depression Head: normocephalic Eyes: nl conjunctiva ENMT: nl external ears & nose Neck: supple Respiratory: clear to auscultation Cardiovascular: regular rate and rhythm Gastrointestinal: other (acordian drain in place) Musculoskeletal: nl extremities to inspection Results Result Diagram: 10/25/18 0532 10/25/18 0532 Results 24hrs Laboratory Tests Test 10/24/18 17:18 10/24/18 20:18 10/25/18 01:04 10/25/18 05:31 Bedside Glucose 171 226 H 269 H 242 H Test 10/25/18 05:32 10/25/18 08:28 10/25/18 12:40 White Blood Count 10.2 Red Blood Count 3.35 L Hemoglobin 7.7 L Hematocrit 26.0 L Mean Corpuscular 77.6 L Volume Mean Corpuscular 23.0 L Hemoglobin Mean Corpuscular 29.6 L Hemoglobin Concent Red Cell 15.7 H Distribution Width Platelet Count 584 H Mean Platelet Volume 8.8 Immature 1.700 H Granulocytes % Neutrophils % 67.6 Lymphocytes % 18.2 Monocytes % 10.6 Eosinophils % 1.3 Basophils % 0.6 Nucleated Red Blood 0.0 Cells % Immature 0.170 H Granulocytes # Neutrophils # 6.9 Lymphocytes # 1.9 Monocytes # 1.1 H Eosinophils # 0.1 Basophils # 0.1 Nucleated Red Blood 0.0 Cells # Prothrombin Time 13.0 Prothrombin Time 1.0 Ratio INR International 0.97 Normalized Ratio Sodium Level 133 L Potassium Level 4.3 Chloride Level 96 L Carbon Dioxide Level 30 Anion Gap 7 Blood Urea Nitrogen 25 H Creatinine 0.61 Est Glomerular > 60 Filtrat Rate mL/min Glucose Level 238 H Calcium Level 8.9 Total Bilirubin 0.1 L Direct Bilirubin 0.00 Indirect Bilirubin 0.1 Aspartate Amino 69 H Transf (AST/SGOT) Alanine 48 Aminotransferase (AL T/SGPT) Alkaline Phosphatase 1283 H Total Protein 7.0 Albumin 3.2 L Globulin 3.80 H Albumin/Globulin 0.84 Ratio Bedside Glucose 159 229 H Medications Medication Current Medications Ondansetron HCl (Zofran Inj) 4 mg Q6H PRN IV NAUSEA AND/OR VOMITING; Start 10/02/18 at 02:00 Albuterol (Proventil 0.083% (Neb)) 2.5 mg Q2H RESP THERAPY PRN NEB SHORTNESS OF BREATH; Start 10/02/18 at 02:00 Acetaminophen (Tylenol Liquid) 650 mg Q6H PRN PO PAIN LEVEL 1-3 OR FEVER Last administered on 10/23/18at 16:10; Admin Dose 650 MG; Start 10/02/18 at 02:00 Menthol/Methyl Salicylate (Memo Erazo) 1 applic TID PRN TOP pain; Start 10/02/18 at 06:30 Tramadol HCl (Ultram) 50 mg Q6H PRN PO MODERATE PAIN LEVEL 4-6 Last administered on 10/19/18 10:27; Admin Dose 50 MG; Start 10/02/18 at 11:00 Potassium Chloride (Potassium Chloride Pwd/Soln) 20 meq PER PROTOCOL PRN PO POTASSIUM REPLACEMENT PROTOCOL; Start 10/02/18 at 11:30 Potassium Chloride (Potassium Chloride Pwd/Soln) 30 meq PER PROTOCOL PRN PO POTASSIUM REPLACEMENT PROTOCOL; Start 10/02/18 at 11:30 Potassium Chloride (Potassium Chloride Pwd/Soln) 40 meq PER PROTOCOL PRN PO POTASSIUM REPLACEMENT PROTOCOL; Start 10/02/18 at 11:30 Miscellaneous Information 1 ea NOTE XX ; Start 10/02/18 at 22:00 Glucose (Glutose) 15 gm Q15M PRN PO DECREASED GLUCOSE; Start 10/02/18 at 22:00 Glucose (Glutose) 22.5 gm Q15M PRN PO DECREASED GLUCOSE; Start 10/02/18 at 22:00 Dextrose (D50w Syringe) 25 ml Q15M PRN IV DECREASED GLUCOSE Last administered on 10/12/18 20:44; Admin Dose 25 ML; Start 10/02/18 at 22:00 Dextrose (D50w Syringe) 50 ml Q15M PRN IV DECREASED GLUCOSE Last administered on 10/12/18 18:15; Admin Dose 50 ML; Start 10/02/18 at 22:00 Glucagon (Glucagen) 1 mg Q15M PRN IM DECREASED GLUCOSE; Start 10/02/18 at 22:00 Glucose (Glutose) 15 gm Q15M PRN BUCCAL DECREASED GLUCOSE; Start 10/02/18 at 22:00 Diagnostic Test (Pha) (Accu-Chek) 1 ea AC MEALS AND BEDTIME XX Last administered on 10/23/18 20:40; Admin Dose 1 EA; Start 10/03/18 at 17:05 Calcium Carbonate (Tums) 500 mg Q4 PRN PO epigastric pain Last administered on 10/25/18 08:36; Admin Dose 500 MG; Start 10/05/18 at 01:30 Pantoprazole (Protonix Tab) 40 mg DAILY@06 PO Last administered on 10/25/18 05:28; Admin Dose 40 MG; Start 10/06/18 at 06:00 Lactobacillus Acidophilus/ Rhamnosus (Culturelle) 1 cap BID PO Last administered on 10/25/18 08:36; Admin Dose 1 CAP; Start 10/08/18 at 21:00 Acetaminophen/ Hydrocodone Bitart ([place] (10/325)) 1 tab Q6H PRN PO SEVERE PAIN LEVEL 7-10 Last administered on 10/25/18 05:28; Admin Dose 1 TAB; Start 10/08/18 at 14:30 Nicotine (Nicoderm 14 Mg/ 24hr) 1 patch DAILY TRANSDERM Last administered on 10/25/18 08:35; Admin Dose 1 PATCH; Start 10/08/18 at 14:30 Loperamide HCl (Imodium Cap) 2 mg QID PRN PO DIARRHEA; Start 10/09/18 at 12:11 Hydrocortisone (Anusol-Hc Supp) 25 mg TID PRN [place] HEMORROID PAIN/ITCHING; Start 10/09/18 at 13:30 Potassium Chloride (Potassium Chloride Pwd/Soln) 20 meq DAILY PO Last administered on 10/25/18 08:33; Admin Dose 20 MEQ; Start 10/09/18 at 13:30 Enoxaparin Sodium (Lovenox) 40 mg DAILY SC Last administered on 10/25/18 08:39; Admin Dose 40 MG; Start 10/14/18 at 09:00 Metoclopramide HCl (Reglan) 5 mg TID PO Last administered on 10/25/18 12:41; Admin Dose 5 MG; Start 10/13/18 at 13:00 Sucralfate (Carafate) 1 gm QID PO Last administered on 10/25/18 12:41; Admin Dose 1 GM; Start 10/13/18 at 13:00 Morphine Sulfate (morphine) 6 mg Q4H PRN PO SEVERE PAIN LEVEL 7-10 Last administered on 10/25/18 08:41; Admin Dose 6 MG; Start 10/15/18 at 15:30 Insulin Aspart (Novolog Insulin Pen) (Adult SC Insulin - Moder... Q4 SC Last administered on 10/25/18 12:42; Admin Dose 6 UNIT; Start 10/19/18 at 01:00 Vitamin A/Vitamin D (Vitamin A & D Oint) 1 applic BID PRN TOP DRYNESS; Start 10/21/18 at 10:30 Nystatin (Nystatin Powder) 1 applic BID TOP Last administered on 10/25/18 08:48; Admin Dose 1 APPLIC; Start 10/21/18 at 21:00 Non-Formulary Medication 2 ea Q4H RIGHT EYE Last administered on 10/25/18 12:41; Admin Dose 2 EA; Start 10/22/18 at 13:00 Insulin Glargine (Lantus) 12 units DAILY@0800 SC Last administered on 10/25/18 08:39; Admin Dose 12 UNITS; Start 10/23/18 at 08:00 Thiamine HCl (Vitamin B1) 100 mg DAILY PO Last administered on 10/25/18 08:37; Admin Dose 100 MG; Start 10/23/18 at 09:00 Metoprolol Succinate (Toprol Xl) 12.5 mg DAILY PO Last administered on 10/25/18 08:34; Admin Dose 12.5 MG; Start 10/23/18 at 21:00 Lisinopril (Zestril) 5 mg DAILY PO Last administered on 10/25/18 08:35; Admin Dose 5 MG; Start 10/23/18 at 09:00 Buspirone HCl (Buspar) 5 mg BID PO Last administered on 10/25/18 08:36; Admin Dose 5 MG; Start 10/23/18 at 21:00 Furosemide (Lasix) 20 mg DAILY PO Last administered on 10/25/18 08:37; Admin Dose 20 MG; Start 10/24/18 at 09:00 Paroxetine HCl (Paxil) 10 mg DAILY PO Last administered on 10/25/18 08:35; Admin Dose 10 MG; Start 10/24/18 at 09:00 Piperacillin Sod/ Tazobactam Sod 100 ml @ 200 mls/hr Q8 IVPB Last administered on 10/25/18 05:28; Admin Dose 200 MLS/HR; Start 10/23/18 at 16:00 Aspirin (Halfprin) 81 mg DAILY PO ; Start 10/29/18 at 14:00 Atorvastatin Calcium (Lipitor) 20 mg QHS PO ; Start 10/29/18 at 21:00 Senna/Docusate Sodium (Senokot-S) 2 tab HS PO Last administered on 10/24/18at 20:20; Admin Dose 2 TAB; Start 10/24/18 at 21:00 Petrolatum (Vaseline) 1 ea BID PRN TOP DRY SKIN; Start 10/24/18 at 13:00 Gabapentin (Neurontin) 200 mg TID PO Last administered on 10/25/18at 12:41; Admin Dose 200 MG; Start 10/24/18 at 13:38 MAYA CASTILLO M.D. Oct 25, 2018 14:46
--- NOTE | 2018-10-25 16:27 | CONS ---
Assessment/Plan Assessment/Plan Hospital Course (Demo Recall) No acute events per report no fevers patient is sleeping looks comfortable WBC today went down to 10.2 neutrophils 67.6 BUN 25 creatinine 0.61 Antimicrobials: Zosyn status post ciprofloxacin CT of the chest revealed no alveolar pneumonia. Right basilar atelectasis. Small right pleural effusion. Minimal groundglass interstitial infiltrates both lung bases, right greater than left. Question mild interstitial pneumonia. Status post partial drainage of hepatic abscesses. Stable subcapsular fluid collection anterior liver. Cholelithiasis Abdominal fluid culture growing Klebsiella pneumonia, no anaerobes Physical examination: Well-developed elderly -[place] man in no distr ess. Head atraumatic normocephalic neck is supple chest rise symmetrical breath sounds diminished bases heart S1-S2 abdomen obese soft bowel sounds present extremities without cyanosis Assessment: 1. Clinical sepsis 2. Liver abscesses ==> s/p repeated IR guided aspiration with catheter placemen t 3. Healthcare associated pneumonia 4. Diabetes, poorly controlled 5. Hypertension 6. Bipolar disorder and homelessness 7. Poss retention/cystitis 8. Constipation 9. Anemia/Beta Thalassemia Plan: Clinically unchanged, no fevers, WBC trending down, minimal amount of drainage from accordion drain, continue present care and antibiotics Consultation Date/Type/Reason Admit Date/Time Oct 02, 2018 at 00:05 Initial Consult Date 10/04/18 Type of Consult id Requesting Provider: HERRERA SALDAÑA NP Date/Time of Note DATE: 10/25/18 TIME: 16:27 Exam/Review of Systems Exam Vitals Vital Signs Date Temp Pulse Resp B/P (MAP) Pulse Ox O2 O2 Flow FiO2 Time Delivery Rate 10/25/18 98.2 92 18 118/66 98 Room Air 14:00 (83) Intake and Output 10/24/18 10/24/18 10/25/18 1515:00 23:00 07:00 IntakeIntake Total 620 ml 200 ml 900 ml OutputOutput Total 0 ml 1520 ml BalanceBalance 620 ml 200 ml -620 ml Results Result Diagram: 10/25/18 0532 10/25/18 0532 Results 24hrs Laboratory Tests Test 10/24/18 17:18 10/24/18 20:18 10/25/18 01:04 10/25/18 05:31 Bedside Glucose 171 226 H 269 H 242 H Test 10/25/18 05:32 10/25/18 08:28 10/25/18 12:40 White Blood Count 10.2 Red Blood Count 3.35 L Hemoglobin 7.7 L Hematocrit 26.0 L Mean Corpuscular 77.6 L Volume Mean Corpuscular 23.0 L Hemoglobin Mean Corpuscular 29.6 L Hemoglobin Concent Red Cell 15.7 H Distribution Width Platelet Count 584 H Mean Platelet Volume 8.8 Immature 1.700 H Granulocytes % Neutrophils % 67.6 Lymphocytes % 18.2 Monocytes % 10.6 Eosinophils % 1.3 Basophils % 0.6 Nucleated Red Blood 0.0 Cells % Immature 0.170 H Granulocytes # Neutrophils # 6.9 Lymphocytes # 1.9 Monocytes # 1.1 H Eosinophils # 0.1 Basophils # 0.1 Nucleated Red Blood 0.0 Cells # Prothrombin Time 13.0 Prothrombin Time 1.0 Ratio INR International 0.97 Normalized Ratio Sodium Level 133 L Potassium Level 4.3 Chloride Level 96 L Carbon Dioxide Level 30 Anion Gap 7 Blood Urea Nitrogen 25 H Creatinine 0.61 Est Glomerular > 60 Filtrat Rate mL/min Glucose Level 238 H Calcium Level 8.9 Total Bilirubin 0.1 L Direct Bilirubin 0.00 Indirect Bilirubin 0.1 Aspartate Amino 69 H Transf (AST/SGOT) Alanine 48 Aminotransferase (AL T/SGPT) Alkaline Phosphatase 1283 H Total Protein 7.0 Albumin 3.2 L Globulin 3.80 H Albumin/Globulin 0.84 Ratio Bedside Glucose 159 229 H Medications Medication Current Medications Ondansetron HCl (Zofran Inj) 4 mg Q6H PRN IV NAUSEA AND/OR VOMITING; Start 10/02/18 at 02:00 Albuterol (Proventil 0.083% (Neb)) 2.5 mg Q2H RESP THERAPY PRN NEB SHORTNESS OF BREATH; Start 10/02/18 at 02:00 Acetaminophen (Tylenol Liquid) 650 mg Q6H PRN PO PAIN LEVEL 1-3 OR FEVER Last administered on 10/23/18at 16:10; Admin Dose 650 MG; Start 10/02/18 at 02:00 Menthol/Methyl Salicylate (Memo Erazo) 1 applic TID PRN TOP pain; Start 10/02/18 at 06:30 Tramadol HCl (Ultram) 50 mg Q6H PRN PO MODERATE PAIN LEVEL 4-6 Last administered on 10/19/18at 10:27; Admin Dose 50 MG; Start 10/02/18 at 11:00 Potassium Chloride (Potassium Chloride Pwd/Soln) 20 meq PER PROTOCOL PRN PO POTASSIUM REPLACEMENT PROTOCOL; Start 10/02/18 at 11:30 Potassium Chloride (Potassium Chloride Pwd/Soln) 30 meq PER PROTOCOL PRN PO POTASSIUM REPLACEMENT PROTOCOL; Start 10/02/18 at 11:30 Potassium Chloride (Potassium Chloride Pwd/Soln) 40 meq PER PROTOCOL PRN PO POTASSIUM REPLACEMENT PROTOCOL; Start 10/02/18 at 11:30 Miscellaneous Information 1 ea NOTE XX ; Start 10/02/18 at 22:00 Glucose (Glutose) 15 gm Q15M PRN PO DECREASED GLUCOSE; Start 10/02/18 at 22:00 Glucose (Glutose) 22.5 gm Q15M PRN PO DECREASED GLUCOSE; Start 10/02/18 at 22:00 Dextrose (D50w Syringe) 25 ml Q15M PRN IV DECREASED GLUCOSE Last administered on 10/12/18at 20:44; Admin Dose 25 ML; Start 10/02/18 at 22:00 Dextrose (D50w Syringe) 50 ml Q15M PRN IV DECREASED GLUCOSE Last administered on 10/12/18 18:15; Admin Dose 50 ML; Start 10/02/18 at 22:00 Glucagon (Glucagen) 1 mg Q15M PRN IM DECREASED GLUCOSE; Start 10/02/18 at 22:00 Glucose (Glutose) 15 gm Q15M PRN BUCCAL DECREASED GLUCOSE; Start 10/02/18 at 22:00 Diagnostic Test (Pha) (Accu-Chek) 1 ea AC MEALS AND BEDTIME XX Last administered on 10/23/18at 20:40; Admin Dose 1 EA; Start 10/03/18 at 17:05 Calcium Carbonate (Tums) 500 mg Q4 PRN PO epigastric pain Last administered on 10/25/18 08:36; Admin Dose 500 MG; Start 10/05/18 at 01:30 Pantoprazole (Protonix Tab) 40 mg DAILY@06 PO Last administered on 10/25/18 05:28; Admin Dose 40 MG; Start 10/06/18 at 06:00 Lactobacillus Acidophilus/ Rhamnosus (Culturelle) 1 cap BID PO Last administered on 10/25/18at 08:36; Admin Dose 1 CAP; Start 10/08/18 at 21:00 Acetaminophen/ Hydrocodone Bitart ([place] (10/325)) 1 tab Q6H PRN PO SEVERE PAIN LEVEL 7-10 Last administered on 10/25/18 05:28; Admin Dose 1 TAB; Start 10/08/18 at 14:30 Nicotine (Nicoderm 14 Mg/ 24hr) 1 patch DAILY TRANSDERM Last administered on 10/25/18 08:35; Admin Dose 1 PATCH; Start 10/08/18 at 14:30 Loperamide HCl (Imodium Cap) 2 mg QID PRN PO DIARRHEA; Start 10/09/18 at 12:11 Hydrocortisone (Anusol-Hc Supp) 25 mg TID PRN [place] HEMORROID PAIN/ITCHING; Start 10/09/18 at 13:30 Potassium Chloride (Potassium Chloride Pwd/Soln) 20 meq DAILY PO Last admini stered on 10/25/18 08:33; Admin Dose 20 MEQ; Start 10/09/18 at 13:30 Enoxaparin Sodium (Lovenox) 40 mg DAILY SC Last administered on 10/25/18 08:39; Admin Dose 40 MG; Start 10/14/18 at 09:00 Metoclopramide HCl (Reglan) 5 mg TID PO Last administered on 10/25/18 12:41; Admin Dose 5 MG; Start 10/13/18 at 13:00 Sucralfate (Carafate) 1 gm QID PO Last administered on 10/25/18 12:41; Admin Dose 1 GM; Start 10/13/18 at 13:00 Morphine Sulfate (morphine) 6 mg Q4H PRN PO SEVERE PAIN LEVEL 7-10 Last ad ministered on 10/25/18 08:41; Admin Dose 6 MG; Start 10/15/18 at 15:30 Insulin Aspart (Novolog Insulin Pen) (Adult SC Insulin - Moder... Q4 SC Last administered on 10/25/18 12:42; Admin Dose 6 UNIT; Start 10/19/18 at 01:00 Vitamin A/Vitamin D (Vitamin A & D Oint) 1 applic BID PRN TOP DRYNESS; Start 10/21/18 at 10:30 Nystatin (Nystatin Powder) 1 applic BID TOP Last administered on 10/25/18 08:4 8; Admin Dose 1 APPLIC; Start 10/21/18 at 21:00 Non-Formulary Medication 2 ea Q4H RIGHT EYE Last administered on 10/25/18 12:41; Admin Dose 2 EA; Start 10/22/18 at 13:00 Insulin Glargine (Lantus) 12 units DAILY@0800 SC Last administered on 10/25/18 08:39; Admin Dose 12 UNITS; Start 10/23/18 at 08:00 Thiamine HCl (Vitamin B1) 100 mg DAILY PO Last administered on 10/25/18 08:37; Admin Dose 100 MG; Start 10/23/18 at 09:00 Metoprolol Succinate (Toprol Xl) 12.5 mg DAILY PO Last administered on 10/25/18 08:34; Admin Dose 12.5 MG; Start 10/23/18 at 21:00 Lisinopril (Zestril) 5 mg DAILY PO Last administered on 10/25/18 08:35; Admin Dose 5 MG; Start 10/23/18 at 09:00 Buspirone HCl (Buspar) 5 mg BID PO Last administered on 10/25/18 08:36; Admin Dose 5 MG; Start 10/23/18 at 21:00 Furosemide (Lasix) 20 mg DAILY PO Last administered on 10/25/18 08:37; Admin Dose 20 MG; Start 10/24/18 at 09:00 Paroxetine HCl (Paxil) 10 mg DAILY PO Last administered on 10/25/18 08:35; Admin Dose 10 MG; Start 10/24/18 at 09:00 Piperacillin Sod/ Tazobactam Sod 100 ml @ 200 mls/hr Q8 IVPB Last administered on 10/25/18 15:09; Admin Dose 200 MLS/HR; Start 10/23/18 at 16:00 Aspirin (Halfprin) 81 mg DAILY PO ; Start 10/29/18 at 14:00 Atorvastatin Calcium (Lipitor) 20 mg QHS PO ; Start 10/29/18 at 21:00 Senna/Docusate Sodium (Senokot-S) 2 tab HS PO Last administered on 10/24/18 20:20; Admin Dose 2 TAB; Start 10/24/18 at 21:00 Petrolatum (Vaseline) 1 ea BID PRN TOP DRY SKIN; Start 3/13/19 at 13:00 Gabapentin (Neurontin) 200 mg TID PO Last administered on 10/25/18at 12:41; Admin Dose 200 MG; Start 10/24/18 at 13:38 AURORA ARZOLA NP Oct 25, 2018 16:27
[2018-10-25 20:00] VITALS: BP 110/63; PULSE 94; RESP 18
[2018-10-25] MEDS: SENNA/DOCUSATE NA (8.6MG/50MG) TAB PO SCH (20:45)
[2018-10-26] MEDS: Insulin NOVOLOG SS MODERATE Algorithm(NPO/TPN/ENTERAL FEEDS) SC SCH ×6 (00:59→20:06)
[2018-10-26] MEDS: [UNRECOGNIZED DRUG - OTHER] RIGHT EYE SCH ×6 (00:59→20:09)
[2018-10-26] MEDS: HYDROCODONE/APAP (10/325) TAB PO PRN ×2 (01:49→23:58)
[2018-10-26 02:00] VITALS: BP 132/81; PULSE 96; RESP 19
[2018-10-26] MEDS ORDERED: MAGNESIUM HYDROXIDE 30ML CUP PO PRN (02:00)
[2018-10-26] MEDS ORDERED: MAGNESIUM HYDROXIDE 30ML CUP PO ONE (02:00)
[2018-10-26] MEDS: PANTOPRAZOLE (EC) 40 MG TAB PO SCH (05:48)
[2018-10-26] MEDS: PIPER-TAZO 3.375 GM IV (PMX) 100 ML IVPB SCH ×3 (05:49→21:15)
[2018-10-26] MEDS: ACCU-CHEK XX SCH ×4 (07:47→20:16)
[2018-10-26 08:10] VITALS: BP 116/77; PULSE 93; RESP 18
[2018-10-26] MEDS: ENOXAPARIN 40 MG/0.4 ML SYG SC SCH (08:31)
[2018-10-26] MEDS: INSULIN GLARGINE [LANTus] (100 UNITS/ML) SYG SC SCH (08:33)
[2018-10-26] MEDS: METOCLOPRAMIDE 5 MG TAB PO SCH ×3 (08:34→20:03)
[2018-10-26] MEDS: POTASSIUM CHLORIDE 20 MEQ POWDER FOR ORAL SOLN PO SCH (08:34)
[2018-10-26] MEDS: GABAPENTIN 100 MG CAP PO SCH ×3 (08:35→20:01)
[2018-10-26] MEDS: SUCRALFATE 1 GM TAB PO SCH ×4 (08:35→20:03)
[2018-10-26] MEDS: LISINOPRIL 5 MG TAB PO SCH (08:35)
[2018-10-26] MEDS: PAROXETINE 20 MG TAB PO SCH (08:35)
[2018-10-26] MEDS: THIAMINE 100 MG TAB PO SCH (08:36)
[2018-10-26] MEDS: METOPROLOL (XL) 25 MG TAB PO SCH (08:36)
[2018-10-26] MEDS: LACTOBACILLUS RHAMNOSUS CAP PO SCH ×2 (08:37→20:01)
[2018-10-26] MEDS: FUROSEMIDE 40 MG TAB PO SCH (08:37)
[2018-10-26] MEDS: BUSPIRONE 5 MG TAB PO SCH ×2 (08:37→20:01)
[2018-10-26] MEDS: NYSTATIN 30 GM POWDER BTL TOP SCH ×2 (08:39→20:09)
[2018-10-26] MEDS: NICOTINE (14 MG/24 HR) PATCH TRANSDERM SCH (08:39)
--- NOTE | 2018-10-26 09:34 | CONS ---
Assessment/Plan Assessment/Plan Hospital Course (Demo Recall) #Anemia -pt is now confirmed to have Beta Thalassemia which is certainly a contributing factor to his microcytic anemia -initially pt was noted to have a low iron saturation in the setting of a high ferritin and low TIBC. Thus there is also a component of chronic inflammation from the underlying liver abscess and diabetes, as well as a component of iron deficiency. now s/p 10 days of IV iron -EGD and coloscopy did not reveal evidence of active GI bleed although colon prep was suboptimal -there does not seem to be evidence of hemolysis given the elevated haptoglobin -negative SPEP rules out monoclonal gammopathy -patient's epo level is elevated. I do not feel he would benefit from procrit at this time #Liver abscess -this is the likely cause of the elevated alk phos. negative bone scan is noted -s/p IR guided drainage x 2 of the liver abscess -continue abx for liver abscess. pt is now on zosyn. WBC now trending down #DM -uncontrolled -continue insulin per primary team #Bipolar -continue mood stabilizers -continue mood stabilizers Consultation Date/Type/Reason Admit Date/Time Oct 02, 2018 at 00:05 Initial Consult Date 10/04/18 Type of Consult Hematology Reason for Consultation anemia Requesting Provider: HERRERA SALDAÑA NP Date/Time of Note DATE: 10/26/18 TIME: 09:33 24 HR Interval Summary Free Text/Dictation WBC count continues to trend down Exam/Review of Systems Exam Vitals Vital Signs Date Temp Pulse Resp B/P (MAP) Pulse Ox O2 O2 Flow FiO2 Time Delivery Rate 10/26/18 97.6 93 18 116/77 99 08:10 (90) 10/25/18 Room Air 14:00 Intake and Output 10/25/18 10/25/18 10/26/18 1515:00 23:00 07:00 IntakeIntake Total 680 ml 580 ml 100 ml OutputOutput Total 1000 ml 15 ml 905 ml BalanceBalance -320 ml 565 ml -805 ml Constitutional: alert, oriented, distress, frail Psych: anxiety, confusion, depression Head: normocephalic Eyes: nl conjunctiva ENMT: nl external ears & nose Neck: supple Respiratory: clear to auscultation Cardiovascular: regular rate and rhythm Gastrointestinal: soft Extremities: normal pulses Results Result Diagram: 10/25/18 0532 10/25/18 0532 Results 24hrs Laboratory Tests Test 10/25/18 12:40 10/25/18 17:47 10/25/18 20:42 10/26/18 00:57 Bedside Glucose 229 H 138 222 H 261 H Test 10/26/18 05:50 10/26/18 08:13 Bedside Glucose 221 H 198 Medications Medication Current Medications Ondansetron HCl (Zofran Inj) 4 mg Q6H PRN IV NAUSEA AND/OR VOMITING; Start 10/02/18 at 02:00 Albuterol (Proventil 0.083% (Neb)) 2.5 mg Q2H RESP THERAPY PRN NEB SHORTNESS OF BREATH; Start 10/02/18 at 02:00 Acetaminophen (Tylenol Liquid) 650 mg Q6H PRN PO PAIN LEVEL 1-3 OR FEVER Last administered on 10/23/18at 16:10; Admin Dose 650 MG; Start 10/02/18 at 02:00 Menthol/Methyl Salicylate (Memo Erazo) 1 applic TID PRN TOP pain; Start 10/02/18 at 06:30 Tramadol HCl (Ultram) 50 mg Q6H PRN PO MODERATE PAIN LEVEL 4-6 Last administered on 10/19/18at 10:27; Admin Dose 50 MG; Start 10/02/18 at 11:00 Potassium Chloride (Potassium Chloride Pwd/Soln) 20 meq PER PROTOCOL PRN PO POTASSIUM REPLACEMENT PROTOCOL; Start 10/02/18 at 11:30 Potassium Chloride (Potassium Chloride Pwd/Soln) 30 meq PER PROTOCOL PRN PO POTASSIUM REPLACEMENT PROTOCOL; Start 10/02/18 at 11:30 Potassium Chloride (Potassium Chloride Pwd/Soln) 40 meq PER PROTOCOL PRN PO POTASSIUM REPLACEMENT PROTOCOL; Start 10/02/18 at 11:30 Miscellaneous Information 1 ea NOTE XX ; Start 10/02/18 at 22:00 Glucose (Glutose) 15 gm Q15M PRN PO DECREASED GLUCOSE; Start 10/02/18 at 22:00 Glucose (Glutose) 22.5 gm Q15M PRN PO DECREASED GLUCOSE; Start 10/02/18 at 22:00 Dextrose (D50w Syringe) 25 ml Q15M PRN IV DECREASED GLUCOSE Last administered on 10/12/18at 20:44; Admin Dose 25 ML; Start 10/02/18 at 22:00 Dextrose (D50w Syringe) 50 ml Q15M PRN IV DECREASED GLUCOSE Last administered on 10/12/18 18:15; Admin Dose 50 ML; Start 10/02/18 at 22:00 Glucagon (Glucagen) 1 mg Q15M PRN IM DECREASED GLUCOSE; Start 10/02/18 at 22:00 Glucose (Glutose) 15 gm Q15M PRN BUCCAL DECREASED GLUCOSE; Start 10/02/18 at 22:00 Diagnostic Test (Pha) (Accu-Chek) 1 ea AC MEALS AND BEDTIME XX Last a dministered on 10/26/18 07:47; Admin Dose 1 EA; Start 10/03/18 at 17:05 Calcium Carbonate (Tums) 500 mg Q4 PRN PO epigastric pain Last administered on 10/25/18 08:36; Admin Dose 500 MG; Start 10/05/18 at 01:30 Pantoprazole (Protonix Tab) 40 mg DAILY@06 PO Last administered on 10/26/18 05:48; Admin Dose 40 MG; Start 10/06/18 at 06:00 Lactobacillus Acidophilus/ Rhamnosus (Culturelle) 1 cap BID PO Last administered on 10/26/18 08:37; Admin Dose 1 CAP; Start 10/08/18 at 21:00 Acetaminophen/ Hydrocodone Bitart ([place] (10/325)) 1 tab Q6H PRN PO SEVERE PAIN LEVEL 7-10 Last administered on 10/26/18 01:49; Admin Dose 1 TAB; Start 10/08/18 at 14:30 Nicotine (Nicoderm 14 Mg/ 24hr) 1 patch DAILY TRANSDERM Last administered on 10/26/18 08:39; Admin Dose 1 PATCH; Start 10/08/18 at 14:30 Loperamide HCl (Imodium Cap) 2 mg QID PRN PO DIARRHEA; Start 10/09/18 at 12:11 Hydrocortisone (Anusol-Hc Supp) 25 mg TID PRN [place] HEMORROID PAIN/ITCHING; Start 10/09/18 at 13:30 Potassium Chloride (Potassium Chloride Pwd/Soln) 20 meq DAILY PO Last administered on 10/26/18 08:34; Admin Dose 20 MEQ; Start 10/09/18 at 13:30 Enoxaparin Sodium (Lovenox) 40 mg DAILY SC Last administered on 10/26/18 08:31 ; Admin Dose 40 MG; Start 10/14/18 at 09:00 Metoclopramide HCl (Reglan) 5 mg TID PO Last administered on 10/26/18 08:34; Admin Dose 5 MG; Start 10/13/18 at 13:00 Sucralfate (Carafate) 1 gm QID PO Last administered on 10/26/18 08:35; Admin Dose 1 GM; Start 10/13/18 at 13:00 Morphine Sulfate (morphine) 6 mg Q4H PRN PO SEVERE PAIN LEVEL 7-10 Last administered on 10/25/18 08:41; Admin Dose 6 MG; Start 10/15/18 at 15:30 Insulin Aspart (Novolog Insulin Pen) (Adult SC Insulin - Moder... Q4 SC Last a dministered on 10/26/18 08:32; Admin Dose 4 UNIT; Start 10/19/18 at 01:00 Vitamin A/Vitamin D (Vitamin A & D Oint) 1 applic BID PRN TOP DRYNESS; Start 10/21/18 at 10:30 Nystatin (Nystatin Powder) 1 applic BID TOP Last administered on 10/26/18 08:39; Admin Dose 1 APPLIC; Start 10/21/18 at 21:00 Non-Formulary Medication 2 ea Q4H RIGHT EYE Last administered on 10/26/18 08:42; Admin Dose 2 EA; Start 10/22/18 at 13:00 Insulin Glargine (Lantus) 12 units DAILY@0800 SC Last administered on 10/26/18 08:33; Admin Dose 12 UNITS; Start 10/23/18 at 08:00 Thiamine HCl (Vitamin B1) 100 mg DAILY PO Last administered on 10/26/18 08:36; Admin Dose 100 MG; Start 10/23/18 at 09:00 Metoprolol Succinate (Toprol Xl) 12.5 mg DAILY PO Last administered on 10/26/18 08:36; Admin Dose 12.5 MG; Start 10/23/18 at 21:00 Lisinopril (Zestril) 5 mg DAILY PO Last administered on 10/26/18 08:35; Admin Dose 5 MG; Start 10/23/18 at 09:00 Buspirone HCl (Buspar) 5 mg BID PO Last administered on 10/26/18 08:37; Admin Dose 5 MG; Start 10/23/18 at 21:00 Furosemide (Lasix) 20 mg DAILY PO Last administered on 10/26/18 08:37; Admin Dose 20 MG; Start 10/24/18 at 09:00 Paroxetine HCl (Paxil) 10 mg DAILY PO Last administered on 10/26/18 08:35; Admin Dose 10 MG; Start 10/24/18 at 09:00 Piperacillin Sod/ Tazobactam Sod 100 ml @ 200 mls/hr Q8 IVPB Last administered on 10/26/18 05:49; Admin Dose 200 MLS/HR; Start 10/23/18 at 16:00 Aspirin (Halfprin) 81 mg DAILY PO ; Start 10/29/18 at 14:00 Atorvastatin Calcium (Lipitor) 20 mg QHS PO ; Start 10/29/18 at 21:00 Senna/Docusate Sodium (Senokot-S) 2 tab HS PO Last administered on 10/25/18 20:45; Admin Dose 2 TAB; Start 10/24/18 at 21:00 Petrolatum (Vaseline) 1 ea BID PRN TOP DRY SKIN; Start 10/24/18 at 13:00 Gabapentin (Neurontin) 200 mg TID PO Last administered on 10/26/18 08:35; Admin Dose 200 MG; Start 10/24/18 at 13:38 Magnesium Hydroxide (Milk Of Mag) 30 ml BID PRN PO CONSTIPATION; Start 10/26/18 at 02:00 MAYA CASTILLO M.D. Oct 26, 2018 09:34
[2018-10-26 13:59] VITALS: BP 114/74; PULSE 89; RESP 18
--- NOTE | 2018-10-26 14:47 | CONS ---
Assessment/Plan Assessment/Plan Hospital Course (Demo Recall) No acute events per report no fevers patient is sleeping looks comfortable WBC today went down to 10.2 neutrophils 67.6 BUN 25 creatinine 0.61 Antimicrobials: Zosyn status post ciprofloxacin CT of the chest revealed no alveolar pneumonia. Right basilar atelectasis. Small right pleural effusion. Minimal groundglass interstitial infiltrates both lung bases, right greater than left. Question mild interstitial pneumonia. Status post partial drainage of hepatic abscesses. Stable subcapsular fluid collection anterior liver. Cholelithiasis Abdominal fluid culture growing Klebsiella pneumonia, no anaerobes Physical examination: Well-developed elderly -[place] man in no distr ess. Head atraumatic normocephalic neck is supple chest rise symmetrical breath sounds diminished bases heart S1-S2 abdomen obese soft bowel sounds present extremities without cyanosis Assessment: 1. Clinical sepsis 2. Liver abscesses ==> s/p repeated IR guided aspiration with catheter placemen t 3. Healthcare associated pneumonia 4. Diabetes, poorly controlled 5. Hypertension 6. Bipolar disorder and homelessness 7. Poss retention/cystitis 8. Constipation 9. Anemia/Beta Thalassemia Plan: Clinically unchanged, no fevers, continue present care and antibiotics Consultation Date/Type/Reason Admit Date/Time Oct 02, 2018 at 00:05 Initial Consult Date 10/04/18 Type of Consult id Requesting Provider: HERRERA SALDAÑA NP Date/Time of Note DATE: 10/26/18 TIME: 14:45 Exam/Review of Systems Exam Vitals Vital Signs Date Temp Pulse Resp B/P (MAP) Pulse Ox O2 O2 Flow FiO2 Time Delivery Rate 10/26/18 98.0 89 18 114/74 100 13:59 (87) 10/25/18 Room Air 14:00 Intake and Output 10/25/18 10/25/18 10/26/18 1414:59 22:59 06:59 IntakeIntake Total 680 ml 580 ml 100 ml OutputOutput Total 1000 ml 15 ml 905 ml BalanceBalance -320 ml 565 ml -805 ml Results Result Diagram: 10/25/18 0532 10/25/18 0532 Results 24hrs Laboratory Tests Test 10/25/18 17:47 10/25/18 20:42 10/26/18 00:57 10/26/18 05:50 Bedside Glucose 138 222 H 261 H 221 H Test 10/26/18 08:13 10/26/18 12:38 Bedside Glucose 198 171 Medications Medication Current Medications Ondansetron HCl (Zofran Inj) 4 mg Q6H PRN IV NAUSEA AND/OR VOMITING; Start 10/02/18 at 02:00 Albuterol (Proventil 0.083% (Neb)) 2.5 mg Q2H RESP THERAPY PRN NEB SHORTNESS OF BREATH; Start 10/02/18 at 02:00 Acetaminophen (Tylenol Liquid) 650 mg Q6H PRN PO PAIN LEVEL 1-3 OR FEVER Last a dministered on 10/23/18at 16:10; Admin Dose 650 MG; Start 10/02/18 at 02:00 Menthol/Methyl Salicylate (Memo Erazo) 1 applic TID PRN TOP pain; Start 10/02/18 at 06:30 Tramadol HCl (Ultram) 50 mg Q6H PRN PO MODERATE PAIN LEVEL 4-6 Last administered on 10/19/18at 10:27; Admin Dose 50 MG; Start 10/02/18 at 11:00 Potassium Chloride (Potassium Chloride Pwd/Soln) 20 meq PER PROTOCOL PRN PO POTASSIUM REPLACEMENT PROTOCOL; Start 10/02/18 at 11:30 Potassium Chloride (Potassium Chloride Pwd/Soln) 30 meq PER PROTOCOL PRN PO POTASSIUM REPLACEMENT PROTOCOL; Start 10/02/18 at 11:30 Potassium Chloride (Potassium Chloride Pwd/Soln) 40 meq PER PROTOCOL PRN PO POTASSIUM REPLACEMENT PROTOCOL; Start 10/02/18 at 11:30 Miscellaneous Information 1 ea NOTE XX ; Start 10/02/18 at 22:00 Glucose (Glutose) 15 gm Q15M PRN PO DECREASED GLUCOSE; Start 10/02/18 at 22:00 Glucose (Glutose) 22.5 gm Q15M PRN PO DECREASED GLUCOSE; Start 10/02/18 at 22:00 Dextrose (D50w Syringe) 25 ml Q15M PRN IV DECREASED GLUCOSE Last administered on 10/12/18at 20:44; Admin Dose 25 ML; Start 10/02/18 at 22:00 Dextrose (D50w Syringe) 50 ml Q15M PRN IV DECREASED GLUCOSE Last administered on 10/12/18at 18:15; Admin Dose 50 ML; Start 10/02/18 at 22:00 Glucagon (Glucagen) 1 mg Q15M PRN IM DECREASED GLUCOSE; Start 10/02/18 at 22:00 Glucose (Glutose) 15 gm Q15M PRN BUCCAL DECREASED GLUCOSE; Start 10/02/18 at 22:00 Diagnostic Test (Pha) (Accu-Chek) 1 ea AC MEALS AND BEDTIME XX Last administered on 10/26/18 11:31; Admin Dose 1 EA; Start 10/03/18 at 17:05 Calcium Carbonate (Tums) 500 mg Q4 PRN PO epigastric pain Last administered on 10/25/18 08:36; Admin Dose 500 MG; Start 10/05/18 at 01:30 Pantoprazole (Protonix Tab) 40 mg DAILY@06 PO Last administered on 10/26/18 05:48; Admin Dose 40 MG; Start 10/06/18 at 06:00 Lactobacillus Acidophilus/ Rhamnosus (Culturelle) 1 cap BID PO Last administered on 10/26/18 08:37; Admin Dose 1 CAP; Start 10/08/18 at 21:00 Acetaminophen/ Hydrocodone Bitart ([place] (10/325)) 1 tab Q6H PRN PO SEVERE PAIN LEVEL 7-10 Last administered on 10/26/18 01:49; Admin Dose 1 TAB; Start 10/08/18 at 14:30 Nicotine (Nicoderm 14 Mg/ 24hr) 1 patch DAILY TRANSDERM Last administered on 10/26/18 08:39; Admin Dose 1 PATCH; Start 10/08/18 at 14:30 Loperamide HCl (Imodium Cap) 2 mg QID PRN PO DIARRHEA; Start 10/09/18 at 12:11 Hydrocortisone (Anusol-Hc Supp) 25 mg TID PRN [place] HEMORROID PAIN/ITCHING; Start 10/09/18 at 13:30 Potassium Chloride (Potassium Chloride Pwd/Soln) 20 meq DAILY PO Last administered on 10/26/18 08:34; Admin Dose 20 MEQ; Start 10/09/18 at 13:30 Enoxaparin Sodium (Lovenox) 40 mg DAILY SC Last administered on 10/26/18 08:31; Admin Dose 40 MG; Start 10/14/18 at 09:00 Metoclopramide HCl (Reglan) 5 mg TID PO Last administered on 10/26/18 12:39; Admin Dose 5 MG; Start 10/13/18 at 13:00 Sucralfate (Carafate) 1 gm QID PO Last administered on 10/26/18 12:40; Admin Dose 1 GM; Start 10/13/18 at 13:00 Morphine Sulfate (morphine) 6 mg Q4H PRN PO SEVERE PAIN LEVEL 7-10 Last adminis tered on 10/25/18 08:41; Admin Dose 6 MG; Start 10/15/18 at 15:30 Insulin Aspart (Novolog Insulin Pen) (Adult SC Insulin - Moder... Q4 SC Last administered on 10/26/18 12:41; Admin Dose 2 UNIT; Start 10/19/18 at 01:00 Vitamin A/Vitamin D (Vitamin A & D Oint) 1 applic BID PRN TOP DRYNESS; Start 10/21/18 at 10:30 Nystatin (Nystatin Powder) 1 applic BID TOP Last administered on 10/26/18 08:39; Admin Dose 1 APPLIC; Start 10/21/18 at 21:00 Non-Formulary Medication 2 ea Q4H RIGHT EYE Last administered on 10/26/18 12:40; Admin Dose 2 EA; Start 10/22/18 at 13:00 Insulin Glargine (Lantus) 12 units DAILY@0800 SC Last administered on 10/26/18 08:33; Admin Dose 12 UNITS; Start 10/23/18 at 08:00 Thiamine HCl (Vitamin B1) 100 mg DAILY PO Last administered on 10/26/18 08:36; Admin Dose 100 MG; Start 10/23/18 at 09:00 Metoprolol Succinate (Toprol Xl) 12.5 mg DAILY PO Last administered on 10/26 08:36; Admin Dose 12.5 MG; Start 10/23/18 at 21:00 Lisinopril (Zestril) 5 mg DAILY PO Last administered on 10/26/18 08:35; Admin Dose 5 MG; Start 10/23/18 at 09:00 Buspirone HCl (Buspar) 5 mg BID PO Last administered on 10/26/18 08:37; Admin Dose 5 MG; Start 10/23/18 at 21:00 Furosemide (Lasix) 20 mg DAILY PO Last administered on 10/26/18 08:37; Admin Dose 20 MG; Start 10/24/18 at 09:00 Paroxetine HCl (Paxil) 10 mg DAILY PO Last administered on 10/26/18at 08:35; Admin Dose 10 MG; Start 10/24/18 at 09:00 Piperacillin Sod/ Tazobactam Sod 100 ml @ 200 mls/hr Q8 IVPB Last administered on 10/26/18at 13:03; Admin Dose 200 MLS/HR; Start 10/23/18 at 16:00 Aspirin (Halfprin) 81 mg DAILY PO ; Start 10/29/18 at 14:00 Atorvastatin Calcium (Lipitor) 20 mg QHS PO ; Start 10/29/18 at 21:00 Senna/Docusate Sodium (Senokot-S) 2 tab HS PO Last administered on 10/25/18at 20:45; Admin Dose 2 TAB; Start 10/24/18 at 21:00 Petrolatum (Vaseline) 1 ea BID PRN TOP DRY SKIN; Start 10/24/18 at 13:00 Gabapentin (Neurontin) 200 mg TID PO Last administered on 10/26/18at 12:40; Admin Dose 200 MG; Start 10/24/18 at 13:38 Magnesium Hydroxide (Milk Of Mag) 30 ml BID PRN PO CONSTIPATION; Start 10/26/18 at 02:00 AURORA ARZOLA NP Oct 26, 2018 14:47
--- NOTE | 2018-10-26 16:11 | DS ---
Date/Time of Note Date/Time of Note DATE: 10/26/18 TIME: 16:00 Discharge Summary Admission/Discharge Info Admit Date/Time Oct 02, 2018 at 00:05 Discharge Date/Time Patient Condition: Stable Consults Dr. Luke Nunez IR Procedures Ultrasound abdomen IMPRESSION: 1. Hepatomegaly and diffusely increased hepatic echogenicity and coarsened echotexture suggesting steatosis with underlying chronic hepatic parenchymal disease. 2. Indeterminate 2 cm hypoechoic lesion in the right hepatic lobe. Recommend multi phase liver protocol CT or MRI for further evaluation. 3. Increased right renal cortical echogenicity suggesting chronic medical renal disease. 4. Partially imaged small right pleural effusion. MRI abdomen IMPRESSION: 1. At least three small liver lesions concerning for phelgmon/abscesses. Recommend aspiration/sampling under imaging guidance. 2. Small bilateral pleural effusions and pronounced overlying anasarca. MRI brain IMPRESSION: 1. Linear focus of diffusion signal hyperintensity in the posterior frontal right centrum [place] without evidence of diffusion restriction. These findings are suggestive of subacute/late subacute lacunar infarct. 2. No intracranial hemorrhage, edema, mass effect, or shift. 3. Scattered periventricular and subcortical white matter T2 / FLAIR signal hyperintensity foci compatible with moderate to marked chronic microvascular ischemic changes. Vasculopathy/arteriopathy, or demyelinating disease could have a similar appearance. 4. Moderate generalized volume loss. 5. Bilateral small mastoid effusions. CT abdomen pelvis IMPRESSION: Complex cystic areas within the liver compatible with abscesses, with the largest within the anterior segment of the right lobe measuring 4.1 x 4.8 cm. Bilateral moderate pleural effusions with underlying atelectasis/consolidations. Moderately distended stomach. Moderate retained stool within the colon. Markedly distended bladder with mild wall thickening suggestive of cystitis. Clinically correlate. Diffuse intra-abdoinal stranding and mild free fluid. Anasarca. Vascular calcifications reflective of atherosclerosis. CT chest IMPRESSION: No alveolar pneumonia. Right basilar atelectasis. Small right pleural effusion. Minimal ground-glass interstitial infiltrates both lung bases, right greater than left. Question mild interstitial pneumonia. Status post partial drainage of hepatic abscess. Stable subcapsular fluid collection anterior liver. Cholelithiasis. Coronary artery calcifications EGD Gastritis Gastroparesis MICROSCOPIC DIAGNOSIS: Gastric biopsies: -- Oxyntic gastric mucosa with focal mild acute and focal mild chronic inflammation. -- Incidental fragment of duodenal type mucosa with no significant histopathological features. -- A Giemsa stain with an appropriate control is negative for Helicobacter organisms. -- No dysplasia or intestinal metaplasia is identified. Hx of Present Illness 63-year-old gentleman admitted with DKA to ICU Hospital Course Hospitalist Coverage/hospital course Admitted with DKA. Admitted to ICU finished insulin. Up on the floor it was noted that his DKA was stable however there was concern of infection in his liver due to abnormal LFTs imaging. Patient was treated for abscess. Seen by GI and ID. Underwent aspiration drain placement twice. Cultures appear Klebsiella sensitive to antibiotics. Patient had intermittent fevers, and is his white count was elevated and we therefore switched him to Zosyn. Imaging also concerning for pneumonia or atelectasis. White count has resolved. During diet no dyspnea fever, stable and fit for discharge. Going to sniff with drain care and IV antibiotics via peripheral line. According drain having minimal output at this time. Will need to follow-up with ID and GI 1-2 weeks. While on the floor the patient could not complain of vision changes. MRI concerning for acute/subacute stroke. Patient was seen by neurology. Patient has been optimized medically. EKG, echo unrevealing for any cardioembolic source. Carotid less than 50% bilaterally. Patient has challenges with diabetes which is his largest risk factor along with tobacco abuse. He has underwent multiple episodes of counseling and was told of the risk of further eye damage or dysphagia etc. in his future should his risks not be managed appropriately. A/P 1. DKA vs hyperosmolar hyperglycemic state, stable cont insulin 2. Nonadherence, sp multiple sessions of counseling. Adjusted insulin/ diet. will be challenging/high risk of future DKA. 3. Abn LFTs/imaging- Abscess, sp aspiration *2, klebsiella. due to nonadherence, hopefully we can dc on po's. cont drain care. 4. Homeless/ ftt, may need placement/ SNF. options given in the past, previously wished to reside at his previous place of living. now agrees to snf. 5. Tobacco abuse, sp counseling offered patch 6. Bipolar dz/ mod stable observe 7. Hepatic nodule? 8. Dyslipidemia/metabolic syndrome 9. Anemia combination jolene and possible chr. stable observe. sp EGD/ colon. Gastritis, but no active bleed. 10. Hypertension? 11. Diarrhea, c dif -ve. DC senna, sp endoscopy. 12. Subacute vision loss Rt. Present MRI - Ischemic stroke. stable, Continue risk factor modification. 13. Ac/subacute ischemic stroke. stable cont rfm. sp carotids/ echo. pt/ot/st. not a candidate for aru 14. Possible aspiration pneumonia due to stroke vs impulse eating/ behavior, ST consulted. Finishing antibiotics. 15. 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 Ascites, cont Lasix and beta-asher 17. B- Thalassemia stable observe 18. Lethargy, appetite mod but not usual for his baseline. Watch for hcap or ileusconstipation or dvt. on 10/25- better 19. Gastroparesis 20. Gastritis Subjective: 10/08 no fever nausea vomiting toxicity, following commands. wants more food/ calories 10/09; diarrhea; denies george abd pain. 10/10: No distress no events. 10/11: Nonadherence to diet medications imaging and diagnostic studies. Took GI prep however had diarrhea 10/12: Sugar in the 70s controlled while n.p.o. No nausea vomiting. No chest pain. Subjective dizziness but vitals findings are negative. Fever noted. Colonoscopy today 10/13: Patient stated he had transient vision disturbance. Similar issue in past. Other [place] nonfocal. Right eye discomfort noted. 10/14: Fever overnight. Possible aspiration pneumonia. Start empiric antibiotics appreciate ST eval 10/22: Denies any distress except abdominal pain. Probably ruq drain related. No dyspnea fever. Mood much better/stable, not as demanding. 10/23 energy/mood appears less than baseline. Denies any discomfort like cough fever. Has some abd discomfort but no known aggravating factors. 10/24: Intermittent fever. Again mood energy appetite is usually less than his baseline. Denies discomfort. BM post MOM yesterday. 10/25: better post bm? no fever/ dyspnea. spoke to him about snf/ dc O: Vss PE No pallor/ icterus Regular no mrg Clear Benign nt nd; no rrg drain c/d/i No edema Home Meds Active Scripts [Hospitalization Note] No Conflict Check This is to certify that this patien has been hospitalized in this facility from 10/01/2018. The patient is not clinically stable to be discharged at this point. Please have the the patient's senior human resources representative represent the patient wherever necessary. Prov:PIPERHERRERA MIGUEL ANGEL 10/16/18 Metformin Hcl (Glucophage) 500 Mg Tablet, 500 MG PO WITH BREAKFAST DINNE, #30 TAB Prov:NIK CHANDRA MD 08/05/18 Insulin Lispro (Humalog Kwikpen U-100) 100 Unit/1 Ml Insuln.pen, 15 UNIT SQ AC A for 30 Days, EA Prov:NIK CHANDRA MD 08/05/18 Insulin Regular, Human (Humulin R) 100 Unit/1 Ml Vial, 5 UNIT IJ TID for 30 Days, VIAL Prov:NIK CHANDRA MD 08/05/18 Insulin Lispro (Humalog Kwikpen U-100) 100 Unit/1 Ml Insuln.pen, 32 UNIT SQ Daily at Bedtime for 30 Days, #30 Prov:NIK CHANDRA MD 08/05/18 Reported Medications Buspirone Hcl* (Buspirone Hcl*) 10 Mg Tab, 5 MG PO BID, TAB 08/05/18 Lisinopril* (Lisinopril*) 10 Mg Tablet, 10 MG PO DAILY, #30 TAB 08/05/18 Insulin Glargine,Hum.rec.anlog (Basaglar Kwikpen U-100) 100 Unit/1 Ml Insuln.pen, 32 UNIT SC QHS, EA 08/05/18 Insulin Regular, Human (Humulin R) 100 Unit/1 Ml Vial, 5 UNIT IJ TID, VIAL 08/05/18 Insulin Lispro (Humalog Kwikpen U-100) 100 Unit/1 Ml Insuln.pen, 15 UNIT SQ AC A, EA 08/05/18 Atorvastatin Calcium* (Atorvastatin Calcium*) 20 Mg Tablet, 20 MG PO QHS, #30 TAB 08/05/18 Gabapentin* (Gabapentin*) 300 Mg Capsule, 300 MG PO TID, #90 CAP 08/05/18 Metformin Hcl* (Metformin Hcl*) 500 Mg Tablet, 500 MG PO WITH BREAKFAST DINNE, #60 TAB 08/05/18 Docusate Sodium* (Dok*) 100 Mg Tablet, 100 MG PO BID, #60 CAP 08/05/18 Ferrous Sulfate* (Ferrous Sulfate*) 325 Mg Tabec, 325 MG PO BID, TAB 08/05/18 Aspirin (Low Dose Aspirin) 81 Mg Tablet.dr, 81 MG PO DAILY, #30 TAB 08/05/18 Primary Care Provider Not On Staff Doctor Time spent on discharge: > 30 minutes Pending Labs Laboratory Tests Test 10/25/18 17:47 10/25/18 20:42 10/26/18 00:57 10/26/18 05:50 Bedside 138 222 261 221 Glucose mg/dL (70-220) mg/dL (70-220) mg/dL (70-220) mg/dL (70-220) Test 10/26/18 08:13 10/26/18 12:38 Bedside 198 171 Glucose mg/dL (70-220) mg/dL (70-220) MARKO PAYAN MD Oct 26, 2018 16:10
--- NOTE | 2018-10-26 16:13 | PDOCDIS ---
Discharge Instructions CONDITION [id number] Patient Condition: [id number] Stable HOME CARE INSTRUCTIONS: [id number] Diet Instructions: [id number] Activity Restrictions: [id number] Slowly Increase Activity Do not Drive FOLLOW UP/APPOINTMENTS Follow-up Plan Dr Mai & Dr Butler 1-2wMARKO Leary MD Oct 26, 2018 16:13
[2018-10-26 19:44] VITALS: BP 107/68; PULSE 97; RESP 20
[2018-10-26] MEDS: SENNA/DOCUSATE NA (8.6MG/50MG) TAB PO SCH (20:04)
[2018-10-27] MEDS: [UNRECOGNIZED DRUG - OTHER] RIGHT EYE SCH ×3 (00:08→08:27)
[2018-10-27] MEDS: Insulin NOVOLOG SS MODERATE Algorithm(NPO/TPN/ENTERAL FEEDS) SC SCH ×3 (01:42→08:13)
[2018-10-27 01:46] VITALS: BP 150/94; PULSE 95; RESP 20
[2018-10-27] MEDS: PIPER-TAZO 3.375 GM IV (PMX) 100 ML IVPB SCH (05:25)
[2018-10-27] MEDS: PANTOPRAZOLE (EC) 40 MG TAB PO SCH (05:25)
[2018-10-27] MEDS: morphine LIQ (10 MG/5 ML) CUP PO PRN (07:40)
[2018-10-27 08:06] VITALS: BP 138/86; PULSE 89; RESP 18
[2018-10-27] MEDS: ACCU-CHEK XX SCH ×2 (08:10→11:30)
[2018-10-27] MEDS: INSULIN GLARGINE [LANTus] (100 UNITS/ML) SYG SC SCH (08:13)
[2018-10-27] MEDS: ENOXAPARIN 40 MG/0.4 ML SYG SC SCH (08:14)
[2018-10-27] MEDS: BUSPIRONE 5 MG TAB PO SCH (08:16)
[2018-10-27] MEDS: SUCRALFATE 1 GM TAB PO SCH (08:16)
[2018-10-27] MEDS: LACTOBACILLUS RHAMNOSUS CAP PO SCH (08:17)
[2018-10-27] MEDS: GABAPENTIN 100 MG CAP PO SCH (08:17)
[2018-10-27] MEDS: THIAMINE 100 MG TAB PO SCH (08:18)
[2018-10-27] MEDS: PAROXETINE 20 MG TAB PO SCH (08:19)
[2018-10-27] MEDS: METOPROLOL (XL) 25 MG TAB PO SCH (08:20)
[2018-10-27] MEDS: METOCLOPRAMIDE 5 MG TAB PO SCH (08:20)
[2018-10-27] MEDS: FUROSEMIDE 40 MG TAB PO SCH (08:20)
[2018-10-27] MEDS: LISINOPRIL 5 MG TAB PO SCH (08:21)
[2018-10-27] MEDS: NICOTINE (14 MG/24 HR) PATCH TRANSDERM SCH (08:22)
[2018-10-27] MEDS: POTASSIUM CHLORIDE 20 MEQ POWDER FOR ORAL SOLN PO SCH (08:22)
[2018-10-27] MEDS: NYSTATIN 30 GM POWDER BTL TOP SCH (08:28)
--- NOTE | 2018-10-27 13:02 | CONS ---
Assessment/Plan Assessment/Plan Assessment/Plan (Daily) #Anemia- Hgb 7.7 today -pt is now confirmed to have Beta Thalassemia which is certainly a contributing factor to his microcytic anemia -initially pt was noted to have a low iron saturation in the setting of a high ferritin and low TIBC. Thus there is also a component of chronic inflammation from the underlying liver abscess and diabetes, as well as a component of iron deficiency. now s/p 10 days of IV iron -EGD and coloscopy did not reveal evidence of active GI bleed although colon prep was suboptimal -there does not seem to be evidence of hemolysis given the elevated haptoglobin -negative SPEP rules out monoclonal gammopathy -patient's epo level is elevated. I do not feel he would benefit from procrit at this time #Liver abscess -this is the likely cause of the elevated alk phos. negative bone scan is noted -s/p IR guided drainage x 2 of the liver abscess -continue abx for liver abscess. pt is now on zosyn. WBC now trending down #DM -uncontrolled -continue insulin per primary team #Bipolar -continue mood stabilizers Patient is seen in collaboration with Dr Nunez. dw staff Consultation Date/Type/Reason Admit Date/Time Oct 02, 2018 at 00:05 Initial Consult Date 10/04/18 Type of Consult oncology Reason for Consultation Anemia Requesting Provider: HERRERA SALDAÑA NP Date/Time of Note DATE: 10/27/18 TIME: 13:01 24 HR Interval Summary Free Text/Dictation - feels better -no new events reported last night - dw staff Detailed Summary Eyes: no complaints ENT: no complaints Respiratory: no complaints Cardiovascular: no complaints Gastrointestinal: no complaints Genitourinary: no complaints Musculoskeletal: no complaints Skin: no complaints Neurologic: no complaints Endocrine: no complaints Lymphatic: no complaints Exam/Review of Systems Exam Vitals Vital Signs Date Temp Pulse Resp B/P (MAP) Pulse Ox O2 O2 Flow FiO2 Time Delivery Rate 10/27/18 98.4 89 18 138/86 96 08:06 (103) 10/25/18 Room Air 14:00 Intake and Output 10/26/18 10/26/18 10/27/18 1515:00 23:00 07:00 IntakeIntake Total 340 ml 580 ml 100 ml OutputOutput Total 1300 ml 700 ml 1100 ml BalanceBalance -960 ml -120 ml -1000 ml Constitutional: alert, well developed Psych: nl mood/affect Head: atraumatic Eyes: nl lids, nl sclera ENMT: nl external ears & nose Neck: non-tender Respiratory: clear to auscultation Cardiovascular: nl pulses, other (s1s2) Gastrointestinal: soft, non-tender Musculoskeletal: nl extremities to inspection Extremities: normal pulses Neurological: nl speech Lymph: nontender Results Result Diagram: 10/25/18 0532 10/25/18 0532 Results 24hrs Laboratory Tests Test 10/26/18 17:16 10/26/18 19:58 10/27/18 01:40 10/27/18 05:45 Bedside Glucose 193 227 H 179 316 H Test 10/27/18 08:09 Bedside Glucose 301 H Medications Medication Current Medications Vitamin A/Vitamin D (Vitamin A & D Oint) 1 applic BID PRN TOP DRYNESS; Start 10/21/18 at 10:30 Nystatin (Nystatin Powder) 1 applic BID TOP Last administered on 10/27/18 08:28; Admin Dose 1 APPLIC; Start 10/21/18 at 21:00 Non-Formulary Medication 2 ea Q4H RIGHT EYE Last administered on 10/26/18 20:09; Admin Dose 2 EA; Start 10/22/18 at 13:00 Insulin Glargine (Lantus) 12 units DAILY@0800 SC Last administered on 10/27/18 08:13; Admin Dose 12 UNITS; Start 10/23/18 at 08:00 Thiamine HCl (Vitamin B1) 100 mg DAILY PO Last administered on 10/27/18 08:18; Admin Dose 100 MG; Start 10/23/18 at 09:00 Metoprolol Succinate (Toprol Xl) 12.5 mg DAILY PO Last administered on 10/27 08:20; Admin Dose 12.5 MG; Start 10/23/18 at 21:00 Lisinopril (Zestril) 5 mg DAILY PO Last administered on 10/27/18 08:21; Admin Dose 5 MG; Start 10/23/18 at 09:00 Buspirone HCl (Buspar) 5 mg BID PO Last administered on 10/27/18 08:16; Admin Dose 5 MG; Start 10/23/18 at 21:00 Furosemide (Lasix) 20 mg DAILY PO Last administered on 10/27/18 08:20; Admin Dose 20 MG; Start 10/24/18 at 09:00 Paroxetine HCl (Paxil) 10 mg DAILY PO Last administered on 10/27/18 08:19; Admin Dose 10 MG; Start 10/24/18 at 09:00 Piperacillin Sod/ Tazobactam Sod 100 ml @ 200 mls/hr Q8 IVPB Last administered on 10/27/18 05:25; Admin Dose 200 MLS/HR; Start 10/23/18 at 16:00 Aspirin (Halfprin) 81 mg DAILY PO ; Start 10/29/18 at 14:00 Atorvastatin Calcium (Lipitor) 20 mg QHS PO ; Start 10/29/18 at 21:00 Senna/Docusate Sodium (Senokot-S) 2 tab HS PO Last administered on 10/26/18at 20:04; Admin Dose 2 TAB; Start 10/24/18 at 21:00 Petrolatum (Vaseline) 1 ea BID PRN TOP DRY SKIN; Start 10/24/18 at 13:00 Gabapentin (Neurontin) 200 mg TID PO Last administered on 10/27/18at 08:17; Admin Dose 200 MG; Start 10/24/18 at 13:38 Magnesium Hydroxide (Milk Of Mag) 30 ml BID PRN PO CONSTIPATION; Start 10/26/18 at 02:00 JEANA MEMBRENO Oct 27, 2018 13:02
--- NOTE | 2018-10-27 20:31 | DS ---
Date/Time of Note Date/Time of Note DATE: 10/27/18 TIME: 20:29 Discharge Summary Admission/Discharge Info Admit Date/Time Oct 02, 2018 at 00:05 Discharge Date/Time Oct 27, 2018 at 12:55 Patient Condition: Stable Consults Consults Dr. Luke Nunez IR Procedures Ultrasound abdomen IMPRESSION: 1. Hepatomegaly and diffusely increased hepatic echogenicity and coarsened echotexture suggesting steatosis with underlying chronic hepatic parenchymal dis ease. 2. Indeterminate 2 cm hypoechoic lesion in the right hepatic lobe. Recommend multi phase liver protocol CT or MRI for further evaluation. 3. Increased right renal cortical echogenicity suggesting chronic medical renal disease. 4. Partially imaged small right pleural effusion. MRI abdomen IMPRESSION: 1. At least three small liver lesions concerning for phelgmon/abscesses. Recommend aspiration/sampling under imaging guidance. 2. Small bilateral pleural effusions and pronounced overlying anasarca. MRI brain IMPRESSION: 1. Linear focus of diffusion signal hyperintensity in the posterior frontal right centrum [place] without evidence of diffusion restriction. These findings are suggestive of subacute/late subacute lacunar infarct. 2. No intracranial hemorrhage, edema, mass effect, or shift. 3. Scattered periventricular and subcortical white matter T2 / FLAIR signal hyperintensity foci compatible with moderate to marked chronic microvascular ischemic changes. Vasculopathy/arteriopathy, or demyelinating disease could have a similar appearance. 4. Moderate generalized volume loss. 5. Bilateral small mastoid effusions. CT abdomen pelvis IMPRESSION: Complex cystic areas within the liver compatible with abscesses, with the largest within the anterior segment of the right lobe measuring 4.1 x 4.8 cm. Bilateral moderate pleural effusions with underlying atelectasis/consolidations. Moderately distended stomach. Moderate retained stool within the colon. Markedly distended bladder with mild wall thickening suggestive of cystitis. Clinically correlate. Diffuse intra-abdoinal stranding and mild free fluid. Anasarca. Vascular calcifications reflective of atherosclerosis. CT chest IMPRESSION: No alveolar pneumonia. Right basilar atelectasis. Small right pleural effusion. Minimal ground-glass interstitial infiltrates both lung bases, right greater than left. Question mild interstitial pneumonia. Status post partial drainage of hepatic abscess. Stable subcapsular fluid collection anterior liver. Cholelithiasis. Coronary artery calcifications EGD Gastritis Gastroparesis MICROSCOPIC DIAGNOSIS: Gastric biopsies: -- Oxyntic gastric mucosa with focal mild acute and focal mild chronic inflammation. -- Incidental fragment of duodenal type mucosa with no significant histopathological features. -- A Giemsa stain with an appropriate control is negative for Helicobacter organisms. -- No dysplasia or intestinal metaplasia is identified. Hx of Present Illness 63-year-old gentleman admitted with DKA to ICU Hospital Course Hospitalist Coverage/hospital course Admitted with DKA. Admitted to ICU finished insulin. Up on the floor it was noted that his DKA was stable however there was concern of infection in his liver due to abnormal LFTs imaging. Patient was treated for abscess. Seen by GI and ID. Underwent aspiration drain placement twice. Cultures appear Klebsiella sensitive to antibiotics. Patient had intermittent fevers, and is his white count was elevated and we therefore switched him to Zosyn. Imaging also concerning for pneumonia or atelectasis. White count has resolved. During diet no dyspnea fever, stable and fit for discharge. Going to sniff with drain care and IV antibiotics via peripheral line. According drain having minimal output at this time. Will need to follow-up with ID and GI 1-2 weeks. While on the floor the patient could not complain of vision changes. MRI concerning for acute/subacute stroke. Patient was seen by neurology. Patient has been optimized medically. EKG, echo unrevealing for any cardioembolic source. Carotid less than 50% bilaterally. Patient has challenges with diabetes which is his largest risk factor along with tobacco abuse. He has underwent multiple episodes of counseling and was told of the risk of further eye damage or dysphagia etc. in his future should his risks not be managed appropriately. Addendum: left to snf today. A/P 1. DKA vs hyperosmolar hyperglycemic state, stable cont insulin 2. Nonadherence, sp multiple sessions of counseling. Adjusted insulin/ diet. will be challenging/high risk of future DKA. 3. Abn LFTs/imaging- Abscess, sp aspiration *2, klebsiella. due to nonadherence, hopefully we can dc on po's. cont drain care. 4. Homeless/ ftt, may need placement/ SNF. options given in the past, previously wished to reside at his previous place of living. now agrees to snf. 5. Tobacco abuse, sp counseling offered patch 6. Bipolar dz/ mod stable observe 7. Hepatic nodule? 8. Dyslipidemia/metabolic syndrome 9. Anemia combination jolene and possible chr. stable observe. sp EGD/ colon. Gastritis, but no active bleed. 10. Hypertension? 11. Diarrhea, c dif -ve. DC senna, sp endoscopy. 12. Subacute vision loss Rt. Present MRI - Ischemic stroke. stable, Continue risk factor modification. 13. Ac/subacute ischemic stroke. stable cont rfm. sp carotids/ echo. pt/ot/st. not a candidate for aru 14. Possible aspiration pneumonia due to stroke vs impulse eating/ behavior, ST consulted. Finishing antibiotics. 15. 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 Ascites, cont Lasix and beta-asher 17. B- Thalassemia stable observe 18. Lethargy, appetite mod but not usual for his baseline. Watch for hcap or ileusconstipation or dvt. on 10/25- better 19. Gastroparesis 20. Gastritis Subjective: 10/08 no fever nausea vomiting toxicity, following commands. wants more food/ calories 10/09; diarrhea; denies george abd pain. 10/10: No distress no events. 10/11: Nonadherence to diet medications imaging and diagnostic studies. Took GI prep however had diarrhea 10/12: Sugar in the 70s controlled while n.p.o. No nausea vomiting. No chest pain. Subjective dizziness but vitals findings are negative. Fever noted. Colonoscopy today 10/13: Patient stated he had transient vision disturbance. Similar issue in past. Other [place] nonfocal. Right eye discomfort noted. 10/14: Fever overnight. Possible aspiration pneumonia. Start empiric antibiotics appreciate ST eval 10/22: Denies any distress except abdominal pain. Probably ruq drain related. No dyspnea fever. Mood much better/stable, not as demanding. 10/23 energy/mood appears less than baseline. Denies any discomfort like cough fever. Has some abd discomfort but no known aggravating factors. 10/24: Intermittent fever. Again mood energy appetite is usually less than his baseline. Denies discomfort. BM post MOM yesterday. 10/25: better post bm? no fever/ dyspnea. spoke to him about snf/ dc 10/26: no events 10/27: no fever O: Vss PE No pallor/ icterus Regular no mrg Clear Benign nt nd; no rrg drain c/d/i No edema Home Meds Active Scripts [Hospitalization Note] No Conflict Check This is to certify that this patien has been hospitalized in this facility from 10/01/2018. The patient is not clinically stable to be discharged at this point. Please have the the patient's employee's representative represent the patient wherever necessary. Prov:HERRERA SALDAÑA ADJUSTER LEADER 10/16/18 Insulin Lispro (Humalog Kwikpen U-100) 100 Unit/1 Ml Insuln.pen, 6 UNIT SQ TID, #1 EA Prov:HERRERA SALDAÑA ADJUSTER LEADER 10/06/18 Insulin Glargine,Hum.rec.anlog (Basaglar Kwikpen U-100) 100 Unit/1 Ml Insuln.pen, 18 UNIT SC QHS, #1 EA Prov:HERRERA SALDAÑA ADJUSTER LEADER 10/06/18 Reported Medications Buspirone Hcl* (Buspirone Hcl*) 10 Mg Tab, 5 MG PO BID, TAB 08/05/18 Gabapentin* (Gabapentin*) 300 Mg Capsule, 300 MG PO TID, #90 CAP 08/05/18 Metformin Hcl* (Metformin Hcl*) 500 Mg Tablet, 500 MG PO WITH BREAKFAST DINNE, #60 TAB 08/05/18 Ferrous Sulfate* (Ferrous Sulfate*) 325 Mg Tabec, 325 MG PO BID, TAB 08/05/18 Aspirin (Low Dose Aspirin) 81 Mg Tablet., 81 MG PO DAILY, #30 TAB 08/05/18 Discontinued Reported Medications Lisinopril* (Lisinopril*) 10 Mg Tablet, 10 MG PO DAILY, #30 TAB 08/05/18 Atorvastatin Calcium* (Atorvastatin Calcium*) 20 Mg Tablet, 20 MG PO QHS, #30 TAB 08/05/18 Docusate Sodium* (Dok*) 100 Mg Tablet, 100 MG PO BID, #60 CAP 08/05/18 Follow-up Plan Dr Mai & Dr Butler 1-2wks Primary Care Provider Not On Staff Doctor Time spent on discharge: < 30 minutes Pending Labs Laboratory Tests Test 10/27/18 01:40 10/27/18 05:45 10/27/18 08:09 Bedside Glucose 179 mg/dL (70-220) 316 mg/dL (70-220) 301 mg/dL (70-220) MARKO PAYAN MD Oct 27, 2018 20:31
[2018-10-29] MEDS ORDERED: ASPIRIN (EC) 81 MG TAB PO SCH (14:00)
[2018-10-29] MEDS ORDERED: ATORVASTATIN 20 MG TAB PO SCH (21:00)
== END 2018-10-27 12:55 | DRG 637 ==
LOC: E/R 21:36 → ICU 10-02 00:05 → TEL 10-03 17:47 → 5EC 10-04 14:20
PROVIDERS: ADMIT Internal Medicine; ATTEND Internal Medicine
PROC: 30233N1 Transfusion of Nonautologous Red Blood Cells into Peripheral Vein, Percutaneous Approach (ICD-10-PCS; 2018-10-06)
PROC: 0F913ZZ Drainage of Right Lobe Liver, Percutaneous Approach (ICD-10-PCS; 2018-10-09)
PROC: 0DB68ZX Excision of Stomach, Via Natural or Artificial Opening Endoscopic, Diagnostic (ICD-10-PCS; principal; 2018-10-12 17:00)
PROC: 0DJD8ZZ Inspection of Lower Intestinal Tract, Via Natural or Artificial Opening Endoscopic (ICD-10-PCS; 2018-10-12 17:00)
PROC: 0F9130Z Drainage of Right Lobe Liver with Drainage Device, Percutaneous Approach (ICD-10-PCS; 2018-10-19)
DX: E11.65 Type 2 diabetes mellitus with hyperglycemia (principal); A41.9 Sepsis, unspecified organism; K75.0 Abscess of liver; E43 Unspecified severe protein-calorie malnutrition; I63.81 Other cerebral infarction due to occlusion or stenosis of small artery; J69.0 Pneumonitis due to inhalation of food and vomit; E87.1 Hypo-osmolality and hyponatremia; E87.2 Acidosis; I42.9 Cardiomyopathy, unspecified; R18.8 Other ascites; Z68.1 Body mass index [BMI] 19.9 or less, adult; H53.121 Transient visual loss, right eye; H33.22 Serous retinal detachment, left eye; D50.9 Iron deficiency anemia, unspecified; D56.1 Beta thalassemia; E78.5 Hyperlipidemia, unspecified; E11.43 Type 2 diabetes mellitus with diabetic autonomic (poly)neuropathy; K31.84 Gastroparesis; K29.70 Gastritis, unspecified, without bleeding; K64.8 Other hemorrhoids; I10 Essential (primary) hypertension; F31.9 Bipolar disorder, unspecified; F17.200 Nicotine dependence, unspecified, uncomplicated; F43.10 Post-traumatic stress disorder, unspecified; F15.10 Other stimulant abuse, uncomplicated; K76.0 Fatty (change of) liver, not elsewhere classified; N30.90 Cystitis, unspecified without hematuria; R19.7 Diarrhea, unspecified; Z91.11 Patient's noncompliance with dietary regimen; Z91.14 Patient's other noncompliance with medication regimen; Z59.0 Homelessness; Z79.4 Long term (current) use of insulin; Z79.82 Long term (current) use of aspirin
CPT/HCPCS: 36430; 70450; 70551; 71045; 71250; 74178; 74182; 76705; 77012; 78306; 80048; 80053; 80061; 80202; 80307; 81003; 82105; 82270; 82668; 82728; 82947; 82962; 83010; 83020; 83036; 83540; 83605; 83615; 83690; 83735; 83880; 84080; 84100; 84132; 84145; 84155; 84165; 84443; 84484; 85014; 85018; 85025; 85610; 85651; 85730; 86255; 86480; 86592; 86674; 86704; 86709; 86803; 86850; 86900; 86901; 86920; 87040; 87045; 87070; 87075; 87081; 87086; 87102; 87106; 87116; 87177; 87206; 87340; 87449; 88305; 88312; 92610; 93005; 93306; 93880; 96374; 97167; 97530; 97535; A9503; C9113; J0692; J1650; J1815; J1885; J1940; J2060; J2185; J2250; J2270; J2370; J2405; J2543; J2916; J3010; J3370; J3475; J3480; J7030; J7040; J7042; J7050; J7070; J7120; P9016; Q9967

== ENCOUNTER 2019-02-21 11:11 | Emergency (ER) | payer OTHER ==
[~2019-02-21] VITALS: Ht 175.3 cm; Wt 81.0 kg
[~2019-02-21 11:11] MED LIST changes: -ATOR20TA38 PO; -DOCU100T PO; -INSU100V3 IJ; -LISI10TA2 PO; -METF500T PO; +[UNRECOGNIZED DRUG - REMARK]
[2019-02-21 11:15] VITALS: Ht 175.3 cm; Wt 81.0 kg
[2019-02-21] MEDS ORDERED: ACETAMINOPHEN 500 MG TAB PO STA (11:22)
[2019-02-21] MEDS ORDERED: SOD CHLORIDE 0.9% 820 ML IV ONE (11:30)
--- NOTE | 2019-02-21 12:57 | ERD ---
ER Documentation Chief Complaint Chief Complaint DIFFUSED ABD PAIN X UNK # OF TIME HPI 63-year-old gentleman who presents to the emergency room with multiple complaints. The patient is a very poor historian. He is a homeless gentleman with a history of diabetes and blindness. It is unclear exactly why he called EMS today. He is telling me that he is having body pain. He states that he generally has body pain. Patient is asking and demanding for a sandwich. He states that he has gallstones but denies any significant pain currently. He denies any fevers or chills chest pain or shortness of breath. The patient states that he has been intermittently compliant with his medications. ROS All systems reviewed and are negative except as per history of present illness. Medications Home Meds Discontinued Reported Medications Buspirone Hcl* (Buspirone Hcl*) 10 Mg Tab, 5 MG PO BID, TAB 08/05/18 Gabapentin* (Gabapentin*) 300 Mg Capsule, 300 MG PO TID, #90 CAP 08/05/18 Metformin Hcl* (Metformin Hcl*) 500 Mg Tablet, 500 MG PO WITH BREAKFAST DINNE, #60 TAB 08/05/18 Ferrous Sulfate* (Ferrous Sulfate*) 325 Mg Tabec, 325 MG PO BID, TAB 08/05/18 Aspirin (Low Dose Aspirin) 81 Mg Tablet.dr, 81 MG PO DAILY, #30 TAB 08/05/18 Discontinued Scripts [Hospitalization Note] No Conflict Check This is to certify that this patien has been hospitalized in this facility from 10/01/2018. The patient is not clinically stable to be discharged at this point. Please have the the patient's patient intake representative represent the patient wherever necessary. Prov:HERRERA SALDAÑA NP 10/16/18 Insulin Lispro (Humalog Kwikpen U-100) 100 Unit/1 Ml Insuln.pen, 6 UNIT SQ TID, #1 EA Prov:HERRERA SALDAÑA NP 10/06/18 Insulin Glargine,Hum.rec.anlog (Basaglar Kwikpen U-100) 100 Unit/1 Ml Insuln.pen, 18 UNIT SC QHS, #1 EA Prov:HERRERA SALDAÑA CHIEF MEDICAL TECHNOLOGIST 10/06/18 Allergies Allergies: Coded Allergies: No Known Drug Allergies (Verified Allergy, Unknown, 02/21/19) PMhx/Soc History of Surgery: No Anesthesia Reaction: No Hx Neurological Disorder: No Hx Respiratory Disorders: No Hx Cardiac Disorders: Yes (HTN, HIGH CHOLESTEROL) Hx Psychiatric Problems: Yes (Bipolar, PTSD) Hx Miscellaneous Medical Probl: Yes (MULTIPLE ADMIT WITH NON-COMPLIANCE) Hx Alcohol Use: Yes (UNK LAST USE) Hx Substance Use: Yes (COCAINE, METH) Hx Tobacco Use: Yes Smoking Status: Current every day smoker FmHx Family History: No diabetes Physical Exam Vitals Vital Signs Date Temp Pulse Resp B/P (MAP) Pulse Ox O2 O2 Flow FiO2 Time Delivery Rate 02/21/19 99.4 109 12 137/94 98 11:15 (108) Physical Exam General: Well developed, well nourished, no acute distress Head: Normocephalic, atraumatic. Eyes: Pupils equally reactive, EOM intact ENT: Moist mucous membranes Neck: Supple, no lymphadenopathy Respiratory: Lungs clear bilaterally, no distress Cardiovascular: RRR, no murmurs, rubs, or gallops Abdominal: Soft, non-tender, non-distended, no peritoneal signs negative Sánchez sign : Deferred MSK: No edema, no unilateral swelling wheelchair dependent Neurologic: Alert and oriented, limited exam given patient poor cooperation Skin: No rash Psych: Normal mood Result Diagram: 02/21/19 1120 02/21/19 1120 Results 24 hrs Laboratory Tests Test 02/21/19 11:20 02/21/19 11:21 02/21/19 11:22 02/21/19 11:47 White Blood 9.8 10^3/ul Count Red Blood Count 4.50 10^6/ul Hemoglobin 10.4 g/dl Hematocrit 33.0 % Mean 73.3 fl Corpuscular Volume Mean 23.1 pg Corpuscular Hemoglobin Mean 31.5 g/dl Corpuscular Hemoglobin Conc ent Red Cell 14.9 % Distribution Width Platelet Count 231 10^3/UL Mean Platelet 10.0 fl Volume Immature 0.400 % Granulocytes % Neutrophils % 79.9 % Lymphocytes % 11.4 % Monocytes % 8.1 % Eosinophils % 0.1 % Basophils % 0.1 % Nucleated Red 0.0 /100WBC Blood Cells % Immature 0.040 10^3/ul Granulocytes # Neutrophils # 7.8 10^3/ul Lymphocytes # 1.1 10^3/ul Monocytes # 0.8 10^3/ul Eosinophils # 0.0 10^3/ul Basophils # 0.0 10^3/ul Nucleated Red 0.0 10^3/ul Blood Cells # Sodium Level 140 mmol/L Potassium Level 4.2 mmol/L Chloride Level 104 mmol/L Carbon Dioxide 25 mmol/L Level Anion Gap 11 Blood Urea 24 mg/dl Nitrogen Creatinine 0.63 mg/dl Est Glomerular > 60 mL/min Filtrat Rate mL/min Glucose Level 285 mg/dl Calcium Level 9.7 mg/dl Phosphorus 3.6 mg/dl Level Magnesium Level 1.9 mg/dl Total Bilirubin 1.0 mg/dl Direct 0.00 mg/dl Bilirubin Indirect 1.0 mg/dl Bilirubin Aspartate Amino 25 IU/L Transf (AST/SGO T) Alanine 21 IU/L Aminotransferas e (ALT/SGPT) Alkaline 141 IU/L Phosphatase Total Protein 8.2 g/dl Albumin 4.2 g/dl Globulin 4.00 g/dl Albumin/Globuli 1.05 n Ratio Lipase < 10 U/L Bedside Glucose 279 mg/dL Blood Gas Blood venous Specimen Source Arterial Blood 02/21/2019 11:28 Date Drawn :07 AM Arterial Blood OTHER Gas Puncture Site Pato Test N/A Venous Blood pH 7.432 Venous Blood 37.4 mmHG pCO2 (Temp Corrected ) Venous Blood 64.3 mmHG pO2 (Temp Corrected ) Venous Blood 24.4 mmol/L HCO3 Venous Blood 92.1 mmHG Oxygen Saturation Venous Blood 0.3 mmol/L Base Excess Venous Blood 11.7 g/dl Total Hemoglobin Venous Blood 90.8 % Oxyhemoglobin Venous Blood 0.4 % Methemoglobin Blood Gas A-a 40.6 mmHg O2 Differential Carboxyhemoglob 1.0 % in Blood Gas 37.0 C Temperature Blood Gas ROOM AIR Modality FiO2 21.0 % Blood Gas MDA Notified Whom Blood Gas 02/21/2019 11:31 Notified Time :37 AM Urine Color YELLOW Urine Clarity CLEAR Urine pH 5.0 Urine Specific 1.030 [place] Urine Ketones 1+ mg/dL Urine Nitrite NEGATIVE mg/dL Urine Bilirubin NEGATIVE mg/dL Urine NEGATIVE mg/dL Urobilinogen Urine Leukocyte NEGATIVE Sumit/ul Esterase Urine NEGATIVE mg/dL Hemoglobin Urine Glucose 3+ mg/dL Urine Total NEGATIVE mg/dl Protein Current Medications Medications Dose Sig/Miya Start Time Status Last (Trade) Ordered Route PRN Stop Time Admin Dose Reason Admin Sodium 820 ml @ ONCE ONCE 02/21/19 DC 02/21/19 Chloride 820 mls/hr IV 11:30 11:55 02/21/19 12:29 1,000 mg ONCE STAT 02/21/19 DC 02/21/19 Acetaminophen PO 11:22 11:55 (Tylenol 02/21/19 11:25 Tab) Procedures/MDM LAB INTERPRETATION: I reviewed the laboratory testing and it shows no evidence of acute process MEDICAL DECISION MAKING: The patient presents to the emergency room complaining of body pain asking for sandwich. I am strongly suspecting malingering in this patient. He states that he has chronic pain. He denies any acute changes in his pain today. Patient has no signs of falls or injuries. Patient has hyperglycemia in the field and needs screening for DKA but low clinical concern for that process. ER COURSE: * Patient is refusing ultrasound of the gallbladder. I am not convinced this is consistent with acute cholecystitis. The patient reported a history of g allstones. Patient understands the risks of no imaging including missed diagnosis. Laboratory testing is reassuring with hyperglycemia that is mild without evidence of diabetic ketoacidosis * Patient was given food at this point the patient is safe for discharge. Homeless discharge process was initiated CONSULTATION: None DISPOSITION PLAN: The patient does not have an identifiable emergent medical condition that warrants inpatient hospitalization at this time. The patient is deemed safe for discharge with outpatient follow-up. We discussed follow up with the patient's primary care doctor within 24 to 48 hours as needed. We also discussed return to the emergency room for worsening symptoms or worsening condition. 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 FURTHER EVALUATION AND TREATMENT OF YOUR CONDITION CAN WAIT UNTIL YOU ARE SEEN IN YOUR DOCTORS OFFICE WITHIN THE NEXT 1-2 DAYS. IT IS YOUR RESPONSIBILITY TO MAKE AN APPOINTMENT FOR FOLOW-UP CARE. IF YOU HAVE A PRIMARY DOCTOR --you should call your primary doctor and schedule an appointment IF YOU DO NOT HAVE A PRIMARY DOCTOR YOU CAN CALL OUR PHYSICIAN REFERRAL HOTLINE AT IF YOU CAN NOT AFFORD TO SEE A PHYSICIAN YOU CAN CHOSE FROM THE FOLLOWING [facility] [address] [facility] [address] [facility] [address] [facility] [address] [facility] [address] [facility] [facility] [address] [facility]. [facility] YOU HAVE RECEIVED A MEDICAL SCREENING EXAM AND THE RESULTS INDICATE THAT YOU DO NOT HAVE A CONDITION THAT REQUIRES URGENT TREATMENT IN THE EMERGENCY DEPARTMENT. FURTHER EVALUATION AND TREATMENT OF YOUR CONDITION CAN WAIT UNTIL YOU ARE SEEN IN YOUR DOCTORS OFFICE WITHIN THE NEXT 1-2 DAYS. IT IS YOUR RESPONSIBILITY TO MAKE AN APPOINTMENT FOR FOLOW-UP CARE. IF YOU HAVE A PRIMARY DOCTOR --you should call your primary doctor and schedule and appointment IF YOU DO NOT HAVE A PRIMARY DOCTOR YOU CAN CALL OUR PHYSICIAN REFERRAL HOTLINE AT . IF YOU CAN NOT AFFORD TO SEE A PHYSICIAN YOU CAN CHOSE FROM THE FOLLOWING [facility]: [facility] [address] [place] [address] [facility] [address] [place] [address] [facility] [address] [place] [address] Additional Instructions: Call your primary care doctor TOMORROW for an appointment during the next 1 JASON StaplesTell the secretary board of commissioners that you were referred from this facility.See the doctor sooner or return here if your condition worsens before your appointment time. DIO KAISER MD Feb 21, 2019 12:57
[2019-02-21 14:23] VITALS: BP 133/77; PULSE 82; RESP 12
== END 2019-02-21 16:23 | disposition home or self-care (01) ==
LOC: E/R 11:11
DX: E11.65 Type 2 diabetes mellitus with hyperglycemia (principal); G89.29 Other chronic pain; I10 Essential (primary) hypertension; F17.210 Nicotine dependence, cigarettes, uncomplicated; Z72.89 Other problems related to lifestyle; Z79.82 Long term (current) use of aspirin; Z79.84 Long term (current) use of oral hypoglycemic drugs
CPT/HCPCS: 36415; 80053; 81003; 82803; 82962; 83690; 83735; 84100; 85025; J7030; Z7502; Z7610

== ENCOUNTER 2019-04-08 11:08 | Inpatient (IN) | payer MEDICARE, OTHER ==
[~2019-04-08] VITALS: Ht 188 cm; Wt 63.0 kg
[~2019-04-08 11:08] MED LIST changes: -ASPI81TA52 PO; -BUSP10TA2 PO; +ENOX40DI2 SC; -FER325 PO; -GABA300C16 PO; -INSU100I12 SQ; -INSU100I33 SC; +Insulin Glargine SC; -METF500T24 PO; +NOVO3I SC; -[UNRECOGNIZED DRUG - REMARK]
[2019-04-08 11:36] VITALS: Ht 188 cm; Wt 63.0 kg
[2019-04-08] MEDS ORDERED: SOD CHLORIDE 0.9% 1,000 ML IV STA (11:37)
[2019-04-08] MEDS ORDERED: ACCU-CHEK XX ONE (13:00)
[2019-04-08] MEDS ORDERED: SOD CHLORIDE 0.9% 1,000 ML IV ONE (13:00)
[2019-04-08] MEDS ORDERED: INSULIN LISPRO 100 UNIT/ML VIAL SC ONE (13:00)
[2019-04-08] MEDS ORDERED: ACETAMINOPHEN 325 MG TAB PO PRN (15:30)
[2019-04-08] MEDS ORDERED: ONDANSETRON 4 MG INJ IV PRN ×2 (15:30→18:00)
[2019-04-08] MEDS: SOD CHLORIDE 0.9% 1,000 ML IV SCH ×2 (16:01→17:36)
[2019-04-08] MEDS ORDERED: GLUCOSE GEL 15 GRAM TUBE PO PRN ×2 (18:00)
[2019-04-08] MEDS ORDERED: ZOLPIDEM 5 MG TAB PO PRN (18:00)
[2019-04-08] MEDS ORDERED: DEXTROSE 50% 50 ML SYRINGE IV PRN ×2 (18:00)
[2019-04-08] MEDS ORDERED: DOCUSATE SODIUM 100 MG CAP PO PRN (18:00)
[2019-04-08] MEDS: INSULIN ASPART [NOVOLOG] 3 ML PEN SC SCH ×2 (18:00→21:00)
[2019-04-08] MEDS ORDERED: GLUCAGON 1 MG INJ IM PRN (18:00)
[2019-04-08] MEDS ORDERED: GLUCOSE GEL 15 GRAM TUBE BUCCAL PRN (18:00)
[2019-04-08] MEDS ORDERED: NACL 0.9% 3 ML SYG IV SCH (18:00)
[2019-04-08] MEDS: POTASSIUM CHLORIDE 30 MEQ in SOD CHLORIDE 0.9% 1,000 ML IV SCH (18:59)
[2019-04-08 19:43] VITALS: BP 133/85; PULSE 111; RESP 18
[2019-04-08 20:00] VITALS: PULSE 111
[2019-04-08] MEDS: INSULIN GLARGINE [LANTus] (100 UNITS/ML) SYG SC SCH (22:44)
[2019-04-09] MEDS: INSULIN ASPART [NOVOLOG] 3 ML PEN SC SCH ×9 (01:00→21:00)
[2019-04-09] MEDS: ACCU-CHEK XX SCH (02:00)
[2019-04-09] MEDS: POTASSIUM CHLORIDE 30 MEQ in SOD CHLORIDE 0.9% 1,000 ML IV SCH ×2 (04:23→15:54)
[2019-04-09 11:05] VITALS: PULSE 108
[2019-04-09 15:00] VITALS: RESP 21
[2019-04-09] MEDS: INSULIN GLARGINE [LANTus] (100 UNITS/ML) SYG SC SCH (20:00)
[2019-04-10] MEDS: INSULIN ASPART [NOVOLOG] 3 ML PEN SC SCH ×9 (01:00→20:34)
[2019-04-10] MEDS: POTASSIUM CHLORIDE 30 MEQ in SOD CHLORIDE 0.9% 1,000 ML IV SCH ×4 (01:15→20:34)
[2019-04-10] MEDS: ACCU-CHEK XX SCH (02:00)
[2019-04-10 11:16] VITALS: BP 119/59; PULSE 118; RESP 19
[2019-04-10 15:00] VITALS: BP 131/87; PULSE 114; RESP 18
[2019-04-10 20:00] VITALS: BP 140/82; PULSE 121; RESP 19
[2019-04-10] MEDS: INSULIN GLARGINE [LANTus] (100 UNITS/ML) SYG SC SCH (20:00)
[2019-04-11] VITALS: BP 136/77; PULSE 118; RESP 18
[2019-04-11] MEDS: INSULIN ASPART [NOVOLOG] 3 ML PEN SC SCH ×9 (00:50→22:15)
[2019-04-11] MEDS: ACCU-CHEK XX SCH (02:00)
[2019-04-11] MEDS: POTASSIUM CHLORIDE 30 MEQ in SOD CHLORIDE 0.9% 1,000 ML IV SCH ×2 (06:54→17:03)
[2019-04-11 07:33] VITALS: BP 115/69; PULSE 122; RESP 19
[2019-04-11 10:58] VITALS: BP 133/82; PULSE 117; RESP 19
[2019-04-11] MEDS ORDERED: MAGNESIUM SULFATE 4 GM/100 ML 100 ML IVPB ONE (11:00)
[2019-04-11 15:04] VITALS: BP 97/57; PULSE 112; RESP 19
[2019-04-11 20:00] VITALS: BP 146/66; PULSE 112; RESP 22
[2019-04-11] MEDS: MAGNESIUM OXIDE 400 MG TAB PO SCH (21:05)
[2019-04-11] MEDS: INSULIN GLARGINE [LANTus] (100 UNITS/ML) SYG SC SCH (22:15)
[2019-04-12] VITALS: BP 120/60; PULSE 118; RESP 20
[2019-04-12] MEDS: ACCU-CHEK XX SCH (02:00)
[2019-04-12] MEDS: INSULIN ASPART [NOVOLOG] 3 ML PEN SC SCH ×9 (02:31→20:12)
[2019-04-12 07:37] VITALS: BP 118/62; PULSE 112; RESP 20
[2019-04-12] MEDS: MAGNESIUM OXIDE 400 MG TAB PO SCH ×2 (09:00→20:06)
[2019-04-12 11:33] VITALS: BP 135/83; PULSE 109; RESP 20
[2019-04-12 15:25] VITALS: BP 135/91; PULSE 122; RESP 20
[2019-04-12 20:00] VITALS: BP 105/63; PULSE 105; RESP 18
[2019-04-12] MEDS: INSULIN GLARGINE [LANTus] (100 UNITS/ML) SYG SC SCH (20:12)
[2019-04-13] MEDS: ACCU-CHEK XX SCH (02:00)
[2019-04-13 04:00] VITALS: BP 110/65; PULSE 102; RESP 20
[2019-04-13] MEDS: INSULIN ASPART [NOVOLOG] 3 ML PEN SC SCH ×7 (08:00→21:10)
[2019-04-13] MEDS: ACETAMINOPHEN 325 MG TAB PO PRN (10:11)
[2019-04-13] MEDS: MAGNESIUM OXIDE 400 MG TAB PO SCH ×2 (10:11→21:04)
[2019-04-13 12:28] VITALS: BP 96/67; PULSE 104; RESP 18
[2019-04-13 16:03] VITALS: BP 138/83; PULSE 95; RESP 18
[2019-04-13 19:38] VITALS: BP 124/68; PULSE 105; RESP 18
[2019-04-13] MEDS: HYDROCODONE/APAP (5/325) TAB PO PRN (21:04)
[2019-04-13] MEDS: INSULIN GLARGINE [LANTus] (100 UNITS/ML) SYG SC SCH (21:09)
[2019-04-13 21:57] VITALS: BP 120/82; PULSE 117; RESP 18
[2019-04-14] MEDS: ACCU-CHEK XX SCH (02:00)
[2019-04-14 08:19] VITALS: BP 116/73; PULSE 104; RESP 16
[2019-04-14] MEDS: MAGNESIUM OXIDE 400 MG TAB PO SCH ×2 (08:27→22:25)
[2019-04-14] MEDS: HYDROCODONE/APAP (5/325) TAB PO PRN ×2 (08:28→22:25)
[2019-04-14] MEDS: INSULIN ASPART [NOVOLOG] 3 ML PEN SC SCH ×7 (08:29→22:32)
[2019-04-14 14:04] VITALS: BP 115/72; PULSE 109; RESP 16
[2019-04-14] MEDS: INSULIN GLARGINE [LANTus] (100 UNITS/ML) SYG SC SCH (22:27)
[2019-04-15] MEDS: ACCU-CHEK XX SCH (02:00)
[2019-04-15] MEDS: GABAPENTIN 100 MG CAP PO SCH ×4 (03:57→20:30)
[2019-04-15] MEDS ORDERED: MENTHOL/METH SALICYLATE OINT TOP PRN ×2 (04:00→22:30)
[2019-04-15] MEDS: HYDROCODONE/APAP (5/325) TAB PO PRN ×3 (06:58→22:19)
[2019-04-15 07:13] VITALS: BP 118/69; PULSE 98; RESP 18
[2019-04-15] MEDS: INSULIN ASPART [NOVOLOG] 3 ML PEN SC SCH ×9 (07:35→21:00)
[2019-04-15] MEDS: MAGNESIUM OXIDE 400 MG TAB PO SCH ×2 (09:00→20:30)
[2019-04-15 14:17] VITALS: BP 121/68; PULSE 77; RESP 16
[2019-04-15] MEDS ORDERED: INSULIN ASPART [NOVOLOG] 3 ML PEN SC ONE (20:30)
[2019-04-15] MEDS ORDERED: ACCU-CHEK XX ONE (20:30)
[2019-04-15] MEDS: INSULIN GLARGINE [LANTus] (100 UNITS/ML) SYG SC SCH (20:31)
[2019-04-15 21:04] VITALS: BP 124/78; PULSE 81; RESP 18
[2019-04-16 02:00] VITALS: BP 111/65; PULSE 78; RESP 18
[2019-04-16] MEDS: ACCU-CHEK XX SCH (02:00)
[2019-04-16] MEDS: ACETAMINOPHEN 325 MG TAB PO PRN (02:14)
[2019-04-16] MEDS: morphine 2 MG INJ IV PRN ×3 (05:10→21:05)
[2019-04-16] MEDS: INSULIN ASPART [NOVOLOG] 3 ML PEN SC SCH ×7 (07:35→21:00)
[2019-04-16] MEDS: MAGNESIUM OXIDE 400 MG TAB PO SCH ×2 (08:00→20:56)
[2019-04-16] MEDS: GABAPENTIN 100 MG CAP PO SCH ×3 (08:01→20:57)
[2019-04-16] MEDS: ENOXAPARIN 40 MG/0.4 ML SYG SC SCH (08:01)
[2019-04-16 19:00] VITALS: BP 113/60; RESP 18
[2019-04-16] MEDS: INSULIN GLARGINE [LANTus] (100 UNITS/ML) SYG SC SCH (20:58)
[2019-04-17] MEDS: ACCU-CHEK XX SCH (02:00)
[2019-04-17 03:24] VITALS: BP 130/60; PULSE 108; RESP 18
[2019-04-17] MEDS: INSULIN ASPART [NOVOLOG] 3 ML PEN SC SCH ×2 (07:35)
[2019-04-17] MEDS: GABAPENTIN 100 MG CAP PO SCH (08:40)
[2019-04-17] MEDS: MAGNESIUM OXIDE 400 MG TAB PO SCH (08:40)
[2019-04-17] MEDS: morphine 2 MG INJ IV PRN (08:42)
[2019-04-17] MEDS: ENOXAPARIN 40 MG/0.4 ML SYG SC SCH (08:43)
== END 2019-04-17 10:55 | DRG 638 ==
LOC: E/R 11:08 → 6WM 15:03 → 2NE 04-13 21:45 → MS3 04-14 15:06
PROVIDERS: ADMIT Internal Medicine; ATTEND Internal Medicine
DX: E11.10 Type 2 diabetes mellitus with ketoacidosis without coma (principal); E44.0 Moderate protein-calorie malnutrition; Z68.1 Body mass index [BMI] 19.9 or less, adult; H33.22 Serous retinal detachment, left eye; Z91.19 Patient's noncompliance with other medical treatment and regimen; F31.9 Bipolar disorder, unspecified; H54.62 Unqualified visual loss, left eye, normal vision right eye; D72.829 Elevated white blood cell count, unspecified; E78.5 Hyperlipidemia, unspecified; I10 Essential (primary) hypertension; Z59.0 Homelessness; F17.200 Nicotine dependence, unspecified, uncomplicated; R62.7 Adult failure to thrive; F15.10 Other stimulant abuse, uncomplicated; D56.3 Thalassemia minor
CPT/HCPCS: 36415; 71045; 80048; 80053; 80307; 81001; 82010; 82962; 83735; 84145; 84484; 85025; 93005; 96360; 96372; 97110; 97161; 97530; J1650; J1815; J2270; J3480; J7030